=== PATIENT | female | born 1955 | race Caucasian/White ===

== ENCOUNTER 2019-08-13 13:01 | Emergency (ER) | payer MEDICARE, MEDICAID, SELFPAY ==
--- NOTE | 2019-08-13 13:02 | XR_ITS ---
WS: [id number] XR chest 2V* [id number] REASON FOR EXAM: sob FINDINGS: A mild scoliotic curve convex to the right. There are scattered granulomas throughout both lung bae. Comparisons were made to January 03, 2016. There is no pneumonia, pleural effusion, pulmonary edema, or mass effect. The heart is not grossly enlarged. There is mild hypoaeration noted. XR/XR chest 2V* [id number] IMPRESSION: No active cardiopulmonary changes.
[2019-08-13 13:37] VITALS: BP 113/81; PULSE 95; RESP 18; TEMP 36.7; O2SAT 95; BMI 36.3
[2019-08-13 14:05] LABS: Basophils % 0.3 %; Eosinophils # 0.2 10^3/uL (0.0-0.8); Eosinophils % 1.6 %; Hematocrit 40.5 % (37.0-47.0); Hemoglobin 12.2 g/dL (11.5-15.3); Lymphocytes # 2.1 10^3/uL (0.8-4.8); Lymphocytes % 22.4 %; Mean Corpuscular HGB Conc 30.1 g/dL (30.0-36.0); Mean Corpuscular Volume 92.9 fL (81-99); Mean Platelet Volume 10.7 fL (7.4-10.4); Monocytes # 0.7 10^3/uL (0.2-0.9); Monocytes % 7.1 %; Neutrophils # 6.4 10^3/uL (1.8-7.7); Neutrophils % 68.3 %; Nucleated Red Blood Cells % 0 %; Platelet Count 270 10^3/cmm (130-400); Red Blood Count 4.36 10^6/uL (4.1-5.3); Red Cell Distribution Width 15.5 % (12.1-15.1); White Blood Count 9.4 10^3/uL (4.0-10.0)
[2019-08-13 14:14] LABS: Influenza A by IFA Negative (Negative); Influenza B by IFA Negative (Negative)
[2019-08-13 14:24] LABS: Anion Gap 15.1 (5-19); Blood Urea Nitrogen 16 mg/dL (8-23); Calcium 9.2 mg/dL (8.5-10.5); Carbon Dioxide 21 mmol/L (22-29); Chloride 105 mmol/L (98-107); Glomerular Filtration Rate 45.4 mL/min (90-130); Glucose 127 mg/dL (65-115); Osmolality Calculated 282 mOsm/kg (285-295); Potassium 4.1 mmol/L (3.5-5.1); Sodium 137 mmol/L (136-145)
[2019-08-13 16:12] VITALS: BP 125/57; PULSE 86; RESP 16; O2SAT 93
--- NOTE | 2019-08-13 16:12 | ED_ITS ---
Entered by Selena Umanzor, acting as scribe for Ellen Fogn MD Aug 13, 2019 13:01 HPI - General Adult General: Chief complaint: General Medical Stated complaint: flu s/s Time Seen by Provider: 08/13/19 16:15 Source: patient and family Mode of arrival: ambulatory Limitations: no limitations History of Present Illness: HPI narrative: 63 yo female presents with flu like symptoms. pt states this started 6 days ago. pt states she was seen at [facility] but left AMA. pt states she has had body aches and fatigue. pt has had fever and chills. pt denies anyother symptoms at this time. Patient is in no distress currently. She denies any pain. MD complaint: flu like symptoms. Onset (ago): day(s) (6 days ago) Radiation: non-radiation Severity: moderate Quality: aching Pain Consistency: constant Relieving factors: none Exacerbating factors: movement and other (cough) Associated symptoms: Reports cough, dyspnea, fevers/chills, short of breath and weakness; Deny chest pain, headache(s) or rash Treatments prior to arrival: other (pt seen at [facility] and she left AMA and came to [facility].) Review of Systems General: Reports: 10 or more systems reviewed and unremarkable except in HPI and below Const: Reports: fever, chills, body aches and fatigue Eyes: Denies: blurry vision or eye discomfort ENMT: Denies: throat pain or dental pain Card: Denies: chest pain Resp: Reports: shortness of breath : Denies: painful urination Musc: Denies: neck pain or back pain Skin/Breast: Denies: rash Neuro: Denies: headache Psych: Denies: depression Romain/Lymph: Denies: easy bruising All/Imm: Denies: hives PFS ED PFSH: Family History (Updated 08/10/19 @ 10:11 by Linda Domiinque RN) Mother CAD (coronary artery disease) Diabetes Myocardial infarction Hypertension Father , AGE 72 Diabetes CAD (coronary artery disease) Cancer LUNG Brother Diabetes CAD (coronary artery disease) Hypertension Sister Diabetes Social History Smoking and tobacco status: current every day smoker Physical Exam Const: COMMON NORMALS: no apparent distress, oriented x3 and healthy appearing HENMT: COMMON NORMALS: normocephalic and head/scalp atraumatic HEAD & SCALP: normocephalic and atraumatic Eye: COMMON NORMALS: PERRL and EOMs intact bilaterally PUPIL: Yes PERRL Neck/C-Spine: COMMON NORMALS: full ROM and supple Chest: COMMONS NORMALS: inspection of chest normal and palpation of chest normal Resp: COMMON NORMALS: normal respiratory effort, no retractions, no use of accessory muscles and clear to auscultation bilaterally AUSCULTATION: clear to auscultation bilaterally Cardio: COMMON NORMALS: regular rate, regular rhythm and no murmurs RATE: regular rate RHYTHM: regular rhythm GI: COMMON NORMALS: normal to inspection, nondistended, normoactive bowel sounds, soft to palpation, non-tender and no masses PALPATION: Yes soft Extremity: COMMON NORMALS: normal to inspection and full ROM Neuro: COMMON NORMALS: oriented x3, moves all extremities and no focal motor deficits Psych: COMMON NORMALS: mental status grossly normal, thought process normal and cooperative THOUGHT PROCESS: normal thought process Skin: COMMON NORMALS: no rashes or lesions noted and no wounds GENERAL SKIN EXAM: no rashes or lesions noted Course Vital Signs: Vital signs: Vital Signs Temperature 98.0 F 08/13/19 13:37 Pulse Rate 86 08/13/19 16:12 Respiratory Rate 16 08/13/19 16:14 Blood Pressure 125/57 08/13/19 16:12 Pulse Oximetry 93 08/13/19 16:12 MDM - General Adult MDM Narrative: Medical decision making narrative: Patient presents here with cough and congestion over the last 6 days. Her flu is negative. X-ray shows no large pneumonia. Patient likely has an upper respiratory infection will start on Keflex. Patient also given Tessalon. She has no signs of cardiac cause or pulmonary embolism. Patient is to follow-up with primary care doctor in 3 to 5 days return if worsening. Medical Records: Attestation: I reviewed the patient's medical records. Lab Data: Labs: Lab Results 08/13/19 08/13/19 08/13/19 Range/Units 13:45 13:46 13:46 WBC 9.4 (4.0-10.0) 10^3/ uL RBC 4.36 (4.1-5.3) 10^6/u L Hgb 12.2 (11.5-15.3) g/dL Hct 40.5 (37.0-47.0) % MCV 92.9 (81-99) fL MCH 28.0 (28.0-34.0) pg MCHC 30.1 (30.0-36.0) g/dL RDW 15.5 H (12.1-15.1) % Plt Count 270 (130-400) 10^3/c mm MPV 10.7 H (7.4-10.4) fL Neut % (Auto) 68.3 % Lymph % (Auto) 22.4 % [place] % (Auto) 7.1 % Eos % (Auto) 1.6 % Baso % (Auto) 0.3 % Neut # (Auto) 6.4 (1.8-7.7) 10^3/u L Lymph # (Auto) 2.1 (0.8-4.8) 10^3/u L [place] # (Auto) 0.7 (0.2-0.9) 10^3/u L Eos # (Auto) 0.2 (0.0-0.8) 10^3/u L Baso # (Auto) 0.0 (0.0-0.1) 10^3/u L Nucleated RBC % (a uto) 0 % Nucleated RBCs # 0.0 /100WBC Sodium 137 (136-145) mmol/L Potassium 4.1 (3.5-5.1) mmol/L Chloride 105 (98-107) mmol/L Carbon Dioxide 21 L (22-29) mmol/L Anion Gap 15.1 (5-19) BUN 16 (8-23) mg/dL Creatinine 1.2 H (0.5-0.9) mg/dL GFR Calculation 45.4 L (90-130) mL/min Glucose 127 H (65-115) mg/dL Calculated Osmolal ity 282 L (285-295) mOsm/k g Calcium 9.2 (8.5-10.5) mg/dL Influenza Type A A g Negative (Negative) POC Influenza B Ag Negative (Negative) Imaging Data^: CXR: Radiologist's impression: Patient: Peri Cid Unit #: [id number] : 1955 Age/Sex: 63 / F ADM Date: 08/13/19 Loc: ER Room/Bed: Attending Dr: Ordering Provider/Ordering MD: Ellen Fong MD Date of Service: 08/13/19 Procedure(s): XR chest 2V* 00516 Accession Number(s): [id number] Report Number: [id number] WS: [id number] XR chest 2V* [id number] REASON FOR EXAM: sob FINDINGS: A mild scoliotic curve convex to the right. There are scattered granulomas throughout both lung bae. Comparisons were made to January 03, 2016. There is no pneumonia, pleural effusion, pulmonary edema, or mass effect. The heart is not grossly enlarged. There is mild hypoaeration noted. XR/XR chest 2V* 23863 IMPRESSION: No active cardiopulmonary changes. Discharge Plan Discharge Patient Disposition: Home, Self-Care Clinical Impression: Upper respiratory infection Qualifiers: URI type: unspecified URI Qualified Code(s): J06.9 - Acute upper respiratory infection, unspecified Condition: Stable Prescriptions: New Keflex 500 mg capsule 500 mg PO Q6H 7 Days Qty: 28 RF: 0 Tessalon Perles 100 mg capsule 100 mg PO Q6H PRN (Reason: cough) Qty: 20 RF: 0 No Action metoprolol tartrate 25 mg tablet 25 mg PO BID RF: 0 rosuvastatin 10 mg tablet 10 mg PO DAILY RF: 0 aspirin [Aspir-81] 81 mg tablet,delayed release (DR/EC) 81 mg PO DAILY RF: 0 nitroglycerin [Nitrostat] 0.4 mg tablet, sublingual 0.4 mg SUBLINGUAL Q5M PRN (Reason: Chest Pain) RF: 0 amitriptyline 50 mg tablet 50 mg PO BEDTIME RF: 0 furosemide 40 mg tablet 40 mg PO DAILY RF: 0 cholecalciferol (vitamin D3) 50,000 unit PO Q7D RF: 0 tizanidine [Zanaflex] 4 mg capsule 4 mg PO BID PRN (Reason: Muscle Spasm) RF: 0 fluticasone propionate [Flonase Allergy Relief] 50 mcg/actuation spray,suspension 1 spray INTRANASAL BID PRN (Reason: Allergy Symptoms) RF: 0 tramadol 50 mg tablet 50 mg PO BID RF: 0 gabapentin 300 mg capsule 300 mg PO TID RF: 0 esomeprazole magnesium [Nexium] 20 mg capsule,delayed release(DR/EC) 20 mg PO DAILY RF: 0 trazodone 50 mg Tablet 50 mg PO BEDTIME RF: 0 methenamine hippurate 1 gram Tablet 1 g PO BID RF: 0 Vitamin C 500 mg Tablet 500 mg PO BID RF: 0 levothyroxine 125 mcg Tablet 125 mcg PO DAILY RF: 0 krill oil 1,557-939-46-80 mg Capsule 1 cap PO DAILY RF: 0 Discharge Orders: Discharge Order (Routine); Ordered 08/13/19 Ordered By: Ellen Fong Referrals: Vladimir Danielson [Primary Care Provider] - 4-7 days Discharge Diet: Advance as tolerated Discharge Activity: Resume usual activity Patient Instructions: Upper Respiratory Infection (ED) Coding Level of Care Code 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
[2019-08-13 16:14] VITALS: RESP 16
[2019-08-13 17:18] VITALS: BP 116/64; PULSE 87; RESP 15; O2SAT 95
== END 2019-08-13 17:19 | disposition home or self-care (01) ==
PROVIDERS: Emergency Provider Emergency Medicine; Family Provider Physician Assistant Medical; PCP Physician Assistant Medical
DX: J06.9 Acute upper respiratory infection, unspecified (principal); F17.200 Nicotine dependence, unspecified, uncomplicated
CPT/HCPCS: 36415; 71046; 80048; 85025; 87804; 99281; 99283; A9270

== ENCOUNTER 2019-11-25 13:24 | Outpatient (CLI) | payer MEDICARE, MEDICAID, SELFPAY ==
--- NOTE | 2019-11-25 13:30 | XR_ITS ---
WS: [id number] XR KUB 17171 REASON FOR EXAM: RENAL CALCULUS,LEFT FINDINGS: A definite renal calculus on the left side is not seen. There is scattered calcification throughout the abdomen but not in the region of the kidneys ureter b ladder. Fecal stasis is observed. XR/XR KUB 27144 IMPRESSION: No definite calculi are seen by radiographic evaluation.
== END 2019-11-25 13:25 | disposition home or self-care (01) ==
PROVIDERS: Family Provider Physician Assistant Medical; PCP Physician Assistant Medical; Visit Provider Urology
DX: N20.0 Calculus of kidney (principal)
CPT/HCPCS: 74018; 80053; 81001; 87077; 87086; 87186

== ENCOUNTER 2020-03-10 09:43 | Inpatient (IN) | payer MEDICARE, MEDICAID, SELFPAY ==
[2020-03-10] VITALS (28 sets, daily range): BP systolic 92–170; BP diastolic 68–113; PULSE 67–99; RESP 11–28; TEMP 36.6–36.8; O2SAT 86–100; BMI 37.5
--- NOTE | 2020-03-10 09:52 | ECG_ITS ---
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 Measurements Intervals [place] Rate: 81 P: 55 DC: 161 QRS: -8 QRSD: 121 T: 79 QT: 394 QTc: 458 Interpretive Statements SINUS RHYTHM LATERAL MYOCARDIAL INFARCTION , OF INDETERMINATE AGE [40+ ms Q WAVE AND/OR ST/T ABNORMALITY IN I/aVL/V5/V6] Compared to ECG 07/04/2018 10:27:48 No significant changes Electronically Signed On 03-10-2020 19:39:28 CDT by Taylor Grande M.D. [email or web address] [email or web address].The [employer]/store/[id number] f
--- NOTE | 2020-03-10 09:52 | XRR_ITS ---
PROCEDURE INFORMATION: Exam: XR Chest, 1 View Exam date and time: 03/10/2020 10:07 AM Age: 64 years old Clinical indication: Chest pain; Type not specified; Prior surgery; Surgery type: Stents TECHNIQUE: Imaging protocol: XR of the chest Views: 1 view. COMPARISON: CR XR chest 2V* 13701 08/13/2019 1:24 PM FINDINGS: Lungs: Interstitial prominence diffusely. Likely chronic. Consider CT. Pleural space: Unremarkable. No pleural effusion. No pneumothorax. Heart/Mediastinum: The cardiac silhouette appears enlarged, some of which is magnification related to the AP projection. Bones/joints: Unremarkable. XR/XR chest 1V portable [id number] IMPRESSION: Interstitial prominence diffusely. Likely chronic. Consider CT.
--- NOTE | 2020-03-10 09:55 | ED_ITS ---
HPI - Chest Pain General: Chief Complaint: Chest Pain Stated Complaint: CHEST PAIN Time Seen by Provider: 03/10/20 09:46 History of Present Illness: HPI narrative: This patient is a 64-year-old female who comes in today complaining that she is having a heart attack. She called ambulance this morning for pain that started about 20 minutes prior to the ambulance arrival. She has had MIs in the past. She said her last one was in 2010. She has had multiple stents put in including in 2017 in [place]. She sees Dr. Lara. Recently he took her off her blood thinner because she was having so many episodes of bruising. She denies any other recent medicine changes or medical issues. She also has had shortness of breath. Associated symptoms: Deny abdominal pain, dyspnea, fever(s), nausea or vomiting Review of Systems General: Reports: 10 or more systems reviewed and unremarkable except in HPI and below Const: Denies: fever(s), chills, fatigue or malaise Eyes: Denies: change in vision ENMT: Denies: odynophagia Card: Reports: chest pain and dyspnea on exertion; Denies: swelling of feet/ankles Resp: Denies: dyspnea, productive cough or non-productive cough GI: Denies: abdominal pain, nausea or vomiting : Denies: flank pain or difficulty voiding Musc: Denies: neck pain or back pain Skin/Breast: Denies: rash Neuro: Denies: headache(s), numbness in extremities or weakness in extremities Romain/Lymph: Denies: easy bruising or easy bleeding [facility] ED PFSH: Medical History ASHD (arteriosclerotic heart disease) CHF (congestive heart failure) CKD (chronic kidney disease) COPD (chronic obstructive pulmonary disease) Diabetes 1.5, managed as type 2 HTN (hypertension) Hyperlipidemia Myocardial infarction Obesity EDNA (obstructive sleep apnea) Recurrent UTI Renal calculus, left treated with ESWL with resolution S/P extracorporeal shock wave therapy Tobacco abuse Urolithiasis Surgical History H/O bariatric surgery S/P angioplasty with stent Family History Mother CAD (coronary artery disease) Diabetes Myocardial infarction Hypertension Father , AGE 72 Diabetes CAD (coronary artery disease) Cancer LUNG Brother Diabetes CAD (coronary artery disease) Hypertension Sister Diabetes Social History Smoking and tobacco status: current every day smoker cigarettes Alcohol intake: unknown Adopted: No Caregiver/support person: No Marital status: Legally Current occupational status: retired History of recent travel: No Current gender identity: Female Physical Exam Const: COMMON NORMALS: patient oriented x3, no limitations and alert GENERAL APPEARANCE: cooperative HENMT: HEAD & SCALP: normal to inspection FACE & SINUS: normal facial exam Eye: GENERAL EYE: appearance normal, both eyes and all related structures Neck/C-Spine: COMMON NORMALS: supple, no meningeal signs and no JVD Chest: COMMONS NORMALS: normal inspection of the chest Resp: COMMON NORMALS: normal respiratory effort, No use of accessory muscles and clear to auscultation bilaterally AUSCULTATION: clear to auscultation bilaterally Cardio: COMMON NORMALS: no JVD, regular rate, regular rhythm and No murmurs present (Cardio) RATE: regular rate RHYTHM: regular rhythm GI: COMMON NORMALS: Normal to inspection, nondistended, normoactive bowel sounds present, Soft to palpation and non-tender INSPECTION: Yes normal to inspection AUSCULTATION: Yes normoactive bowel sounds PALPATION: Yes Soft to palpation Back/Pelvis: COMMON NORMALS: thoracic and lumbar spine normal to inspection Extremity: COMMON NORMALS: normal to inspection Neuro: COMMON NORMALS: patient oriented x3, moves all extremities, no focal motor deficits and no sensory deficits noted SENSORIUM/ORIENTATION: Yes alert MENINGEAL SIGNS: Yes no meningeal signs Psych: COMMON NORMALS: mental status grossly normal, cooperative and normal affect Skin: COMMON NORMALS: no rashes or lesions noted and turgor normal GENERAL SKIN EXAM: no rashes or lesions noted and turgor normal Course ED course: This patient presents stating that she is having a heart attack. Her initial EKG did not show diagnostic ischemic changes. Her first troponin was slightly elevated and her second was significantly elevated with a positive delta. Pain was controlled while in the ED. She reported a few very brief episodes of chest pain throughout her stay. She will be admitted to the hospitalist with cardiology consult and likely cath tomorrow. I spoke with Dr. Teran and she requested that I load her with Plavix and Lovenox. She had already received aspirin from EMS. Vital Signs: Vital signs: Vital Signs Temperature 98 F 03/11/20 03:33 Pulse Rate 89 03/11/20 03:33 Respiratory Rate 19 H 03/11/20 03:33 Blood Pressure 150/92 03/11/20 03:33 Pulse Oximetry 96 03/11/20 03:33 MDM - Chest Pain Lab Data: Labs: Lab Results 03/10/20 03/10/20 03/10/20 Range/Units 10:13 10:13 10:13 WBC 8.5 (4.0-10.0) 10^3/ uL RBC 4.54 (4.1-5.3) 10^6/u L Hgb 13.0 (11.5-15.3) g/dL Hct 41.5 (37.0-47.0) % MCV 91.4 (81-99) fL MCH 28.6 (28.0-34.0) pg MCHC 31.3 (30.0-36.0) g/dL RDW 17.3 H (12.1-15.1) % Plt Count 275 (130-400) 10^3/c mm MPV 10.3 (7.4-10.4) fL Neut % (Auto) 67.0 % Lymph % (Auto) 23.5 % [place] % (Auto) 7.3 % Eos % (Auto) 1.4 % Baso % (Auto) 0.4 % Neut # (Auto) 5.71 (1.8-7.7) 10^3/u L Lymph # (Auto) 2.0 (0.8-4.8) 10^3/u L [place] # (Auto) 0.6 (0.2-0.9) 10^3/u L Eos # (Auto) 0.1 (0.0-0.8) 10^3/u L Baso # (Auto) 0.0 (0.0-0.1) 10^3/u L Nucleated RBC % (a uto) 0 % Nucleated RBCs # 0.0 /100WBC PT 12.40 (12.1-14.9) SECO NDS INR 0.90 (0.8-1.2) Sodium 136 (136-145) mmol/L Potassium 3.4 L (3.5-5.1) mmol/L Chloride 101 (98-107) mmol/L Carbon Dioxide 24 (22-29) mmol/L Anion Gap 14.4 (5-19) BUN 21 (8-23) mg/dL Creatinine 0.8 (0.5-0.9) mg/dL GFR Calculation 72.2 L (90-130) mL/min Glucose 125 H (65-115) mg/dL Estimat Average Gl ucose Hemoglobin A1c (4.0-6.0) % Calculated Osmolal ity 286 (285-295) mOsm/k g Calcium 8.1 L (8.5-10.5) mg/dL Total Bilirubin 0.3 (0.15-1.2) mg/dL AST 15 (0-32) U/L ALT 10 (0-33) U/L Alkaline Phosphata se 83 (35-105) IU/L Troponin T Baselin e (0-10) ng/L Troponin T 120 Min [place] (0-10) ng/L Delta Troponin T (0-10) ABS# NT-Pro-B Natriuret Pep 828 H (0-125) pg/mL Total Protein 6.9 (6.6-8.7) g/dL Albumin 3.4 L (3.5-5.2) g/dL Globulin 3.5 (1.3-4.6) g/dL Lipase 29 (13-60) U/L 03/10/20 03/10/20 03/10/20 Range/Units 10:13 10:13 10:13 WBC (4.0-10.0) 10^3/ uL RBC (4.1-5.3) 10^6/u L Hgb (11.5-15.3) g/dL Hct (37.0-47.0) % MCV (81-99) fL MCH (28.0-34.0) pg MCHC (30.0-36.0) g/dL RDW (12.1-15.1) % Plt Count (130-400) 10^3/c mm MPV (7.4-10.4) fL Neut % (Auto) % Lymph % (Auto) % [place] % (Auto) % Eos % (Auto) % Baso % (Auto) % Neut # (Auto) (1.8-7.7) 10^3/u L Lymph # (Auto) (0.8-4.8) 10^3/u L [place] # (Auto) (0.2-0.9) 10^3/u L Eos # (Auto) (0.0-0.8) 10^3/u L Baso # (Auto) (0.0-0.1) 10^3/u L Nucleated RBC % (a uto) % Nucleated RBCs # /100WBC PT (12.1-14.9) SECO NDS INR (0.8-1.2) Sodium (136-145) mmol/L Potassium (3.5-5.1) mmol/L Chloride (98-107) mmol/L Carbon Dioxide (22-29) mmol/L Anion Gap (5-19) BUN (8-23) mg/dL Creatinine (0.5-0.9) mg/dL GFR Calculation (90-130) mL/min Glucose (65-115) mg/dL Estimat Average Gl ucose 123 Hemoglobin A1c 5.9 (4.0-6.0) % Calculated Osmolal ity (285-295) mOsm/k g Calcium (8.5-10.5) mg/dL Total Bilirubin (0.15-1.2) mg/dL AST (0-32) U/L ALT (0-33) U/L Alkaline Phosphata se (35-105) IU/L Troponin T Baselin e 22 H (0-10) ng/L Troponin T 120 Min [place] (0-10) ng/L Delta Troponin T (0-10) ABS# NT-Pro-B Natriuret Pep 890 H (0-125) pg/mL Total Protein (6.6-8.7) g/dL Albumin (3.5-5.2) g/dL Globulin (1.3-4.6) g/dL Lipase (13-60) U/L 03/10/20 Range/Units 12:25 WBC (4.0-10.0) 10^3/ uL RBC (4.1-5.3) 10^6/u L Hgb (11.5-15.3) g/dL Hct (37.0-47.0) % MCV (81-99) fL MCH (28.0-34.0) pg MCHC (30.0-36.0) g/dL RDW (12.1-15.1) % Plt Count (130-400) 10^3/c mm MPV (7.4-10.4) fL Neut % (Auto) % Lymph % (Auto) % [place] % (Auto) % Eos % (Auto) % Baso % (Auto) % Neut # (Auto) (1.8-7.7) 10^3/u L Lymph # (Auto) (0.8-4.8) 10^3/u L [place] # (Auto) (0.2-0.9) 10^3/u L Eos # (Auto) (0.0-0.8) 10^3/u L Baso # (Auto) (0.0-0.1) 10^3/u L Nucleated RBC % (a uto) % Nucleated RBCs # /100WBC PT (12.1-14.9) SECO NDS INR (0.8-1.2) Sodium (136-145) mmol/L Potassium (3.5-5.1) mmol/L Chloride (98-107) mmol/L Carbon Dioxide (22-29) mmol/L Anion Gap (5-19) BUN (8-23) mg/dL Creatinine (0.5-0.9) mg/dL GFR Calculation (90-130) mL/min Glucose (65-115) mg/dL Estimat Average Gl ucose Hemoglobin A1c (4.0-6.0) % Calculated Osmolal ity (285-295) mOsm/k g Calcium (8.5-10.5) mg/dL Total Bilirubin (0.15-1.2) mg/dL AST (0-32) U/L ALT (0-33) U/L Alkaline Phosphata se (35-105) IU/L Troponin T Baselin e (0-10) ng/L Troponin T 120 Min andreafski 53.01 H (0-10) ng/L Delta Troponin T 31.01 H* (0-10) ABS# NT-Pro-B Natriuret Pep (0-125) pg/mL Total Protein (6.6-8.7) g/dL Albumin (3.5-5.2) g/dL Globulin (1.3-4.6) g/dL Lipase (13-60) U/L Discharge Plan Discharge Patient Disposition: Placed in Observation Admit Provider: Dina Garcia Discharge Date/Time: 03/10/20 14:40 Coding Level of Care Code ED 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
[2020-03-10 10:19] LABS: Basophils % 0.4 %; Eosinophils # 0.1 10^3/uL (0.0-0.8); Eosinophils % 1.4 %; Hematocrit 41.5 % (37.0-47.0); Lymphocytes % 23.5 %; Mean Corpuscular HGB Conc 31.3 g/dL (30.0-36.0); Mean Corpuscular Hemoglobin 28.6 pg (28.0-34.0); Mean Corpuscular Volume 91.4 fL (81-99); Mean Platelet Volume 10.3 fL (7.4-10.4); Monocytes # 0.6 10^3/uL (0.2-0.9); Monocytes % 7.3 %; Neutrophils # 5.71 10^3/uL (1.8-7.7); Nucleated Red Blood Cells % 0 %; Platelet Count 275 10^3/cmm (130-400); Red Blood Count 4.54 10^6/uL (4.1-5.3); Red Cell Distribution Width 17.3 % (12.1-15.1); White Blood Count 8.5 10^3/uL (4.0-10.0)
[2020-03-10 10:40] LABS: Troponin(5th) Baseline 22 ng/L (0-10)
[2020-03-10 10:47] LABS: Alanine Aminotransferase 10 U/L (0-33); Albumin Level 3.4 g/dL (3.5-5.2); Alkaline Phosphatase 83 IU/L (35-105); Anion Gap 14.4 (5-19); Aspartate Amino Transferase 15 U/L (0-32); Blood Urea Nitrogen 21 mg/dL (8-23); Calcium 8.1 mg/dL (8.5-10.5); Carbon Dioxide 24 mmol/L (22-29); Chloride 101 mmol/L (98-107); Globulin 3.5 g/dL (1.3-4.6); Glomerular Filtration Rate 72.2 mL/min (90-130); Glucose 125 mg/dL (65-115); Lipase 29 U/L (13-60); NT Pro B Type Natriuretic Pept 828 pg/mL (0-125); Osmolality Calculated 286 mOsm/kg (285-295); Potassium 3.4 mmol/L (3.5-5.1); Sodium 136 mmol/L (136-145); Total Bilirubin 0.3 mg/dL (0.15-1.2); Total Protein 6.9 g/dL (6.6-8.7)
--- NOTE | 2020-03-10 11:52 | ECG_ITS ---
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 Measurements Intervals [place] Rate: 83 P: 63 SC: 157 QRS: -3 QRSD: 123 T: 76 QT: 385 QTc: 455 Interpretive Statements SINUS RHYTHM ANTEROLATERAL MYOCARDIAL INFARCTION , OF INDETERMINATE AGE [40+ ms Q WAVE IN I/aVL/V3-V6] Possible old inferior wall NV Compared to ECG 03/10/2020 09:59:02 No significant changes Electronically Signed On 03-10-2020 19:48:41 CDT by Taylor Grande M.D. [id number]
[2020-03-10 13:02] LABS: Troponin 5 2HR 53.01 ng/L (0-10)
[2020-03-10 13:12] LABS: Troponin 5 2HR Delta 31.01 ABS# (0-10)
[2020-03-10] MEDS: enoxaparin 100 mg/mL Syringe SUBCUT ×2 (13:41→15:56)
[2020-03-10] MEDS: clopidogrel 300 mg Tablet PO (13:41)
--- NOTE | 2020-03-10 14:44 | P.CONIM_ITS ---
Providers/Reason For Consult Consulting Physican/Specialty*: Dr. Teran, cardiology Reason for Consult*: Non-ST elevation ID, previous history of CAD with stent Attending Physician: Dina Garcia MD Primary Care Provider: Vladimir Danielson History of Present Illness History of Present Illness Peri Cid is a 64 year old female with past medical history of coronary artery disease with history of ID x2 in 2004 and 2010. She underwent 1 stent placement in unknown vessel in 2004 and 3 stents in 2010. In 2016 in [place] it seems like she had another 4 stents placed. She usually followed up with Dr. Lara and last saw him in September this year. She is morbidly obese status post bariatric surgery in 2009, hypertension, chronic active tobacco abuse since 18 years of age of at least 1 pack/day, history of diabetes mellitus (not on any medications since bariatric surgery, hemoglobin A1c 5.9), dyslipidemia and chronic kidney disease. She was on Plavix until March of last year. She was not feeling well last night yesterday when she woke up this morning she had a pain in center of her chest while she was working in her kitchen 7/10 in intensity with shortness of breath. She took 2 nitroglycerin that did not help her and then her daughter called EMS. On her way to the hospital she had nausea and received antiemetics. On arrival to the ER her pain resolved but while moving moved to the floor her pain developed again. At the time of evaluation her pain is rated as 1/10 in intensity. She denies any sick contacts, no fever no chills no URI or UTI-like symptoms. No contacts with known COVID patient. She does complain of pneumonia back in August and September. Baseline troponin T of 22 which increased to 53 and 120 minutes and 6 are troponin T of 173. NT proBNP of 890. Last x-ray showed diffuse interstitial prominence and likely tortuous aorta given soft tissue prominence in left hilum. Review of Systems Const: Denies: fatigue Eyes: Denies: change in vision ENMT: Denies: throat pain, bleeding gums or epistaxis Card: Reports: chest pain; Denies: palpitations, irregular heart rhythm, edema, swelling of feet/ankles, lightheadedness, syncope, pre-syncope, dyspnea on exertion or orthopnea Resp: Reports: dyspnea; Denies: productive cough or non-productive cough GI: Denies: abdominal pain, nausea, vomiting, hematemesis, diarrhea, constipation or hematochezia : Denies: dysuria or hematuria Musc: Denies: back pain, extremity swelling, joint pain or muscle weakness Skin/Breast: Denies: rash Neuro: Denies: dizziness Psych: Denies: anxiety or depression Endo: Denies: tired all the time Romain/Lymph: Denies: easy bruising or easy bleeding Meds/Allergies Home Medications and Allergies Home Medications Medication Instructions Recorded Confirmed Last Taken Type amitriptyline 50 mg tablet 50 mg PO BEDTIME tab 08/10/19 03/10/20 03/09/20 History aspirin 81 mg tablet,delayed 81 mg PO DAILY 08/10/19 03/10/20 08/12/19 History release esomeprazole magnesium 20 mg 40 mg PO DAILY 08/10/19 03/10/20 03/08/20 History capsule,delayed release fluticasone propionate 50 2 spray INTRANASAL DAILY PRN 08/10/19 03/10/20 Unknown History mcg/actuation nasal spray,suspension furosemide 40 mg tablet 40 mg PO DAILY 08/10/19 03/10/20 03/08/20 History gabapentin 300 mg capsule 300 mg PO TID 08/10/19 03/10/20 03/09/20 History metoprolol tartrate 25 mg tablet 25 mg PO BID 08/10/19 03/10/20 03/09/20 History nitroglycerin 0.4 mg sublingual 0.4 mg SUBLINGUAL Q5M PRN 08/10/19 03/10/20 03/10/20 History tablet rosuvastatin 10 mg tablet 10 mg PO BEDTIME 08/10/19 03/10/20 03/09/20 History tizanidine 4 mg capsule 4 mg PO Q6H PRN 08/10/19 03/10/20 03/09/20 History tramadol 50 mg tablet 50 mg PO BID PRN 08/10/19 03/10/20 03/09/20 History ascorbic acid (vitamin C) [Vitamin 500 - 1,000 mg PO BID 08/13/19 03/10/20 03/09/20 History C] [id number]-dli-juofhaa-ast 1 cap PO DAILY 08/13/19 03/10/20 03/08/20 History [krill oil] levothyroxine 125 mcg PO DAILY 08/13/19 03/10/20 03/08/20 History trazodone 50 mg PO BEDTIME PRN 08/13/19 03/10/20 08/12/19 History methenamine hippurate 1 gram tablet 1 g PO BID #60 tab 11/25/19 03/10/20 03/09/20 Rx acetaminophen [Arthritis Pain 650 mg PO PRN 03/10/20 03/10/20 Unknown History Reliever] multivitamin [Multiple Vitamins] 1 tab PO DAILY 03/10/20 03/10/20 Unknown History Allergies Allergy/AdvReac Type Severity Reaction Status Date / Time hepatitis a immune Allergy Unknown Unknown Verified 10/12/19 13:50 globulin,human hepatitis B immune globulin Allergy Unknown Unknown Verified 03/10/20 10:56 PFSH Acute PFSH: Medical History ASHD (arteriosclerotic heart disease) CHF (congestive heart failure) CKD (chronic kidney disease) COPD (chronic obstructive pulmonary disease) Diabetes 1.5, managed as type 2 HTN (hypertension) Hyperlipidemia Myocardial infarction Obesity EDNA (obstructive sleep apnea) Recurrent UTI Renal calculus, left treated with ESWL with resolution S/P extracorporeal shock wave therapy Tobacco abuse Urolithiasis Surgical History H/O bariatric surgery S/P angioplasty with stent Family History Mother CAD (coronary artery disease) Diabetes Myocardial infarction Hypertension Father , AGE 72 Diabetes CAD (coronary artery disease) Cancer LUNG Brother Diabetes CAD (coronary artery disease) Hypertension Sister Diabetes Social History Smoking and tobacco status: current every day smoker cigarettes Alcohol intake: unknown Adopted: No Caregiver/support person: No Marital status: Legally Current occupational status: retired History of recent travel: No Current gender identity: Female Vitals/I&O/Wt Last Vital Signs Temp 98.0 F 03/10/20 09:48 Pulse 79 03/10/20 14:34 Resp 18 03/10/20 14:34 BP 125/72 03/10/20 14:34 Pulse Ox 97 03/10/20 14:34 Weight last 48 hrs Weight 219 lb Physical Exam Const: COMMON NORMALS: no acute distress, patient oriented x3 and alert GENERAL APPEARANCE: cooperative, comfortable, well kempt and well hydrated NUTRITIONAL APPEARANCE: obese HENMT: COMMON NORMALS: hearing grossly normal bilaterally, external ears normal and moist oral mucous membranes FACE & SINUS: normal facial exam EXTERNAL EAR: Yes external ears normal Eye: COMMON NORMALS: EOMs intact bilaterally and no scleral icterus GENERAL EYE: appearance normal, both eyes and all related structures Neck/C-Spine: COMMON NORMALS: supple and no JVD GENERAL: Yes normal visual inspection CAROTIDS: Yes normal carotid upstroke Lymph: LYMPHATIC: no lymphadenopathy noted Chest: COMMONS NORMALS: normal inspection of the chest and normal palpation of entire chest wall CHEST: Yes Symmetrical chest wall rise and No tenderness Resp: COMMON NORMALS: clear to auscultation bilaterally EFFORT & INSPECTION: Yes able to speak in complete sentences, No respiratory distress, No pursed lip breathing and No labored AUSCULTATION: clear to auscultation bilaterally, no crackles, no rales, no rhonchi and no wheezes Cardio: COMMON NORMALS: no JVD, regular rate, regular rhythm, S1 normal heart sound present, S2 normal heart sound present and Peripheral pulses 2+ throughout PALPATION: normal PMI RATE: regular rate RHYTHM: regular rhythm HEART SOUNDS: S1 normal heart sound present, S2 normal heart sound present, no gallops and no murmurs BRUITS: no carotid bruits PERIPHERAL PULSES: Peripheral pulses 2+ throughout, radial pulses present, posterior tibial pulses present and dorsalis pedis present Extremity: GENERAL: No cyanosis, Yes edema and No pallor Neuro: COMMON NORMALS: patient oriented x3, CN's II-XII intact bilaterally and no focal motor deficits SENSORIUM/ORIENTATION: Yes alert Psych: COMMON NORMALS: Normal thought process present and speech normal APPEARANCE: Yes well kempt SPEECH: Yes normal speech MOOD & AFFECT: Yes euthymic mood THOUGHT PROCESS: Normal thought process present THOUGHT CONTENT: Yes Normal thought content present Data Imaging^: Other Imaging: Radiologist's impression: Transthoracic echo 10 December 2015 CONCLUSIONS Left ventricular cavity not well visualized. Probably normal LV function. Cannot assess RWMA. Very poor quality study. No significant valve abnormalities. There are no prior echocardiogram studies to compare. Lexiscan sestamibi stress test (05 January 2016) 1. Large area for myocardial infarction versus scarring was noted in basal to distal inferior, basal to distal inferoseptal and basal to distal inferolateral wall of the left ventricle. No ischemia detected by this study. Most likely artery involvement is either RCA or dominant circumflex 2. Electrocardiogram portion of the stress test will be documented separately. Left ventricular ejection fraction of 65%. Transient ischemic dilation ratio of 0.77. A&P Assessment and plan (1) NSTEMI (non-ST elevated myocardial infarction): Patient has typical anginal chest pain. EKG showing sinus rhythm with normal axis. old inferior wall ID and possible anterolateral ID of indeterminate age. Increase in troponin with significant delta change and peak troponin of 173. -She would benefit from coronary angiogram. -Risks and benefits of the procedure were discussed with the patient and she is agreeable for the same. -Continue aspirin. Patient was loaded with Plavix 300 mg and Lovenox therapeutic dose in ER. -Continue with topical nitroglycerin, metoprolol and atorvastatin. Status: Acute (2) ASHD (arteriosclerotic heart disease): Status: Acute (3) CHF (congestive heart failure): Status: Acute Qualifiers: Heart failure type: unspecified Heart failure chronicity: acute on chronic Qualified Code(s): I50.9 - Heart failure, unspecified (4) Hyperlipidemia: Status: Acute Qualifiers: Hyperlipidemia type: unspecified Qualified Code(s): E78.5 - Hyperlipidemia, unspecified (5) EDNA (obstructive sleep apnea): Status: Acute (6) Obesity: Status: Acute Qualifiers: Obesity classification: adult class 2 (BMI 35 - 39.9) Additional A&P Information Chronic active smoker : Concern on smoking cessation hypokalemia: Replaced Hypothyroidism Thank you for allowing me to participate in patient's care. Please feel free to call with questions or concerns. Coding Level of Care Code Acute Machinist for g Fwd Diagnoses NSTEMI (non-ST elevated myocardial infarction) I21.4 ASHD (arteriosclerotic heart disease) I25.10 CHF (congestive heart failure) I50.9 Heart failure type: unspecified Heart failure chronicity: acute on chronic Hyperlipidemia E78.5 Hyperlipidemia type: unspecified EDNA (obstructive sleep apnea) G47.33 Obesity E66.9 Obesity classification: adult class 2 (BMI 35 - 39.9)
--- NOTE | 2020-03-10 15:35 | PC.NURSE ---
Patient c/o sharp stabbing pain that goes from her chest to her back. Rates pain 6/10. O2 placed at 3?/NC
--- NOTE | 2020-03-10 15:40 | P.HP_ITS ---
Providers/Chief Complaint Admitting Physician: Dina Garcia MD Primary Care Provider: Vladimir Danielson Chief Complaint: CHEST PAIN History of Present Illness Peri Cid is a 64 year old female has a history of coronary disease, chronic shortness of breath, history of myocardial infarction with intervention, left ventricular dysfunction with history of systolic heart failure, super morbid obesity status post bariatric surgery, hypertension, tobacco abuse, diabetes, sleep apnea, chronic kidney disease, dyslipidemia, diabetic neuropathy, chronic cystitis and nephrolithiasis. He presents to the hospital with chief complaint of chest pain that started this morning while she was in the kitchen. There was no evident trigger. Describes this as a sensation in the center of her chest, 10 x 10 intensity, improved to 6 on 10 after coming to the ER and getting the Nitro-Bid on. She also complains of shortness of breath at that time and still some subjective subjective shortness of breath ongoing. She has missed taking her Lasix over the last 2 days. Upon presentation to the ER she underwent serial troponins and the 2-hour delta is back at 30, consistent with a non-STEMI. Per my discussion with Dr. Rivero, cardiology service has been consulted and she has been loaded with Plavix and full dose anticoagulation started with Lovenox. She is not usually on home O2 and is currently requiring 3 L/min via nasal cannula to maintain O2 sats. In the ER her O2 sat was noted to be 87%. Review of Systems General: Reports: 10 or more systems reviewed and unremarkable except in HPI and below Const: Denies: fever(s), chills or body aches Eyes: Denies: change in vision, blurry vision or photophobia ENMT: Reports: hoarseness; Denies: throat pain, enlarged tonsils, odynophagia or nasal congestion Card: Denies: chest pain, palpitations, irregular heart rhythm, edema, swelling of feet/ankles, lightheadedness, pre-syncope, dyspnea on exertion or orthopnea Resp: Denies: dyspnea, productive cough, non-productive cough, wheezing, stridor, pain on inspiration, change in phlegm color, hemoptysis or chest congestion GI: Denies: abdominal pain, nausea, vomiting, hematemesis, coffee ground emesis, dysphagia, heartburn, diarrhea, constipation, GI cramping, change in stool character, hematochezia or melena : Denies: flank pain, difficulty voiding, dysuria, urinary frequency, urinary urgency, urinary hesitancy or hematuria Musc: Denies: neck pain, back pain, extremity pain, joint swelling, joint warmth or deformity Neuro: Denies: headache(s), numbness in extremities, weakness in extremities, sensory changes, difficulty walking, frequent falls, dizziness, vertigo, behavioral changes, Slurred speech present or seizure-like activity Psych: Denies: anxiety, depression, suicidal ideation or homicidal ideation Endo: Denies: polyuria, polydipsia, tired all the time, cold intolerance or hot flashes Romain/Lymph: Denies: easy bruising or easy bleeding Medications/Allergies Home Medications Medication Instructions Recorded Confirmed Last Taken Type amitriptyline 50 mg tablet 50 mg PO BEDTIME tab 08/10/19 03/10/20 03/09/20 History aspirin 81 mg tablet,delayed 81 mg PO DAILY 08/10/19 03/10/20 08/12/19 History release esomeprazole magnesium 20 mg 40 mg PO DAILY 08/10/19 03/10/20 03/08/20 History capsule,delayed release fluticasone propionate 50 2 spray INTRANASAL DAILY PRN 08/10/19 03/10/20 Unknown History mcg/actuation nasal spray,suspension furosemide 40 mg tablet 40 mg PO DAILY 08/10/19 03/10/20 03/08/20 History gabapentin 300 mg capsule 300 mg PO TID 08/10/19 03/10/20 03/09/20 History metoprolol tartrate 25 mg tablet 25 mg PO BID 08/10/19 03/10/20 03/09/20 History nitroglycerin 0.4 mg sublingual 0.4 mg SUBLINGUAL Q5M PRN 08/10/19 03/10/20 03/10/20 History tablet rosuvastatin 10 mg tablet 10 mg PO BEDTIME 08/10/19 03/10/20 03/09/20 History tizanidine 4 mg capsule 4 mg PO Q6H PRN 08/10/19 03/10/20 03/09/20 History tramadol 50 mg tablet 50 mg PO BID PRN 08/10/19 03/10/20 03/09/20 History ascorbic acid (vitamin C) [Vitamin 500 - 1,000 mg PO BID 08/13/19 03/10/2003/09/20 History C] [id number]-cod-qerlzdt-ast 1 cap PO DAILY 08/13/19 03/10/20 03/08/20 History [krill oil] levothyroxine 125 mcg PO DAILY 08/13/19 03/10/20 03/08/20 History trazodone 50 mg PO BEDTIME PRN 08/13/19 03/10/20 08/12/19 History methenamine hippurate 1 gram tablet 1 g PO BID #60 tab 11/25/19 03/10/20 03/09/20 Rx acetaminophen [Arthritis Pain 650 mg PO PRN 03/10/20 03/10/20 Unknown History Reliever] multivitamin [Multiple Vitamins] 1 tab PO DAILY 03/10/20 03/10/20 Unknown History Allergies Allergy/AdvReac Type Severity Reaction Status Date / Time hepatitis a immune Allergy Unknown Unknown Verified 10/12/19 13:50 globulin,human hepatitis B immune globulin Allergy Unknown Unknown Verified 03/10/20 10:56 PFSH Acute PFSH: Medical History ASHD (arteriosclerotic heart disease) CHF (congestive heart failure) CKD (chronic kidney disease) COPD (chronic obstructive pulmonary disease) Diabetes 1.5, managed as type 2 HTN (hypertension) Hyperlipidemia Myocardial infarction Obesity EDNA (obstructive sleep apnea) Recurrent UTI Renal calculus, left treated with ESWL with resolution S/P extracorporeal shock wave therapy Tobacco abuse Urolithiasis Surgical History H/O bariatric surgery S/P angioplasty with stent Family History Mother CAD (coronary artery disease) Diabetes Myocardial infarction Hypertension Father , AGE 72 Diabetes CAD (coronary artery disease) Cancer LUNG Brother Diabetes CAD (coronary artery disease) Hypertension Sister Diabetes Social History Smoking and tobacco status: current every day smoker cigarettes Alcohol intake: unknown Adopted: No Caregiver/support person: No Marital status: Legally Current occupational status: retired History of recent travel: No Current gender identity: Female Vitals/I&O/Wt Last Vital Signs Temp 97.9 F 03/10/20 15:12 Pulse 79 03/10/20 15:12 Resp 23 H 03/10/20 15:12 BP 126/79 03/10/20 15:12 Pulse Ox 95 03/10/20 15:12 Weight last 48 hrs Weight 99.337 kg Physical Exam Const: COMMON NORMALS: no acute distress, average body habitus, patient oriented x3, no limitations, healthy appearing, alert and well nourished HENMT: COMMON NORMALS: normocephalic and atraumatic HEAD & SCALP: no rmocephalic and atraumatic Eye: COMMON NORMALS: Equal, round and reactive pupils present, EOMs intact bilaterally, conjunctivae normal and no scleral icterus CONJUNCTIVA: Yes conjunctivae normal PUPIL: Yes Equal, round and reactive pupils present Neck/C-Spine: COMMON NORMALS: no JVD Resp: COMMON NORMALS: normal respiratory effort, No retractions, No use of accessory muscles, clear to auscultation bilaterally and percussion normal AUSCULTATION: crackles and rales Cardio: COMMON NORMALS: no JVD, regular rate, regular rhythm, S1 normal heart sound present, S2 normal heart sound present, No gallops present (Cardio), No clicks present (Cardio), No murmurs present (Cardio), No rub (Cardio) and Peripheral pulses 2+ throughout RATE: regular rate RHYTHM: regular rhythm HEART SOUNDS: S1 normal heart sound present and S2 normal heart sound present PERIPHERAL PULSES: Peripheral pulses 2+ throughout GI: COMMON NORMALS: Normal to inspection, nondistended, normoactive bowel sounds present, Soft to palpation, non-tender, No hepatosplenomegaly present, no masses and no bruits PALPATION: Yes Soft to palpation and Yes No hepatosplenomegaly present Extremity: COMMON NORMALS: normal to inspection, full ROM, capillary refill normal, no joint enlargement, no clubbing, cyanosis or edema, no calf tenderness and no pedal edema Neuro: COMMON NORMALS: patient oriented x3, CN's II-XII intact bilaterally, moves all extremities, no focal motor deficits, no sensory deficits noted, deep tendon reflexes 2+ bilaterally and gait normal SENSORIUM/ORIENTATION: Yes alert Psych: COMMON NORMALS: mental status grossly normal, Normal thought process present, cooperative, normal affect, speech normal, activity/motor behavior normal, denies hallucinations, denies homicidal ideation and denies suicidal ideation SPEECH: Yes normal speech THOUGHT PROCESS: Normal thought process present Skin: COMMON NORMALS: no rashes or lesions noted, no wounds, turgor normal, no jaundice, no petechiae and no mottling GENERAL SKIN EXAM: no rashes or lesions noted and turgor normal Data : 03/10/20 10:13 03/10/20 10:13 A&P Assessment and plan (1) NSTEMI (non-ST elevated myocardial infarction): Status: Acute (2) CHF (congestive heart failure): Status: Acute Qualifiers: Heart failure chronicity: acute on chronic Heart failure type: unspecified Qualified Code(s): I50.9 - Heart failure, unspecified (3) Hyperlipidemia: Status: Acute Qualifiers: Hyperlipidemia type: unspecified Qualified Code(s): E78.5 - Hyperlipidemia, unspecified (4) ASHD (arteriosclerotic heart disease): Status: Acute (5) EDNA (obstructive sleep apnea): Status: Acute (6) HTN (hypertension): Status: Acute Qualifiers: Hypertension type: essential hypertension Qualified Code(s): I10 - Essential (primary) hypertension Additional A&P Information Admit to CSU #NSTEMI Rising troponins, ongoing chest pain Started on anticoagulation with full dose Lovenox 800 mg every 12 hours. Given loading dose Plavix in the ER. Continue aspirin 81 mg daily. Continue metoprolol 25 mg p.o. twice daily. Statins, start Nitro-Bid topically every 6 hours. pain control with morphine To monitor blood pressure. Cardiology consult with Dr. Teran #CHF, patient has missed her Lasix over the past 2 days. There are crackles on exam over bilateral lung bae currently. We will go ahead and administer 40 mg of IV Lasix Right now and resume her home dose starting tomorrow. #Hyperlipidemia: continue statins # HTN: Currently well controlled BP Attestations Medical Necessity Statement*: anticioate > 2midnight for management of NSTEMI + acute on chrnic CHF Coding Level of Care Code Acute Transitions Rn Care Coordinator for [facility] Fwd Exam Comprehensive Diagnoses NSTEMI (non-ST elevated myocardial infarction) I21.4 CHF (congestive heart failure) I50.9 Heart failure chronicity: acute on chronic Heart failure type: unspecified Hyperlipidemia E78.5 Hyperlipidemia type: unspecified ASHD (arteriosclerotic heart disease) I25.10 EDNA (obstructive sleep apnea) G47.33 HTN (hypertension) I10 Hypertension type: essential hypertension
[2020-03-10] MEDS: lidocaine 2% viscous 15 ML, aluminum-mag hydrox-simethicon 30 ML, sucralfate oral liq 1 GM PO (15:51)
[2020-03-10] MEDS: nitroglycerin 1 gm/inch oint Pkt 1 INCH TOPICAL ×2 (15:55→20:55)
[2020-03-10] MEDS: morphine 4 mg/mL SDV 1 mL 2 MG IVP (15:55)
[2020-03-10] MEDS: ondansetron 2 mg/ML SDV 2 mL 4 MG IVP (15:56)
[2020-03-10 16:37] LABS: Glucose Point of Care 232 mg/dL (70-110)
[2020-03-10 16:40] LABS: Estmated Average Glucose 123; Hemoglobin A1C 5.9 % (4.0-6.0)
[2020-03-10 16:44] LABS: Troponin 5 6HR 172.9 ng/L (0-10); Troponin 5 6HR Delta 150.9 ng/L (0-12)
--- NOTE | 2020-03-10 16:47 | PC.NURSE ---
Lab called critical result to ED, pt not in ED any longer. Attempted to call CSU to report to patient care nurse, nurse unavailable. Dr Garcia called and notified of critical 6 hr troponin of 172.9, delta of 150.9.
[2020-03-10 16:49] LABS: NT Pro B Type Natriuretic Pept 890 pg/mL (0-125)
[2020-03-10] MEDS: potassium chloride premix 40 MEQ/100 ML PREMIX 25 MEQ IV (16:59)
[2020-03-10] MEDS: FUROsemide 10 mg/mL SDV 4mL 40 MG IVP (17:00)
[2020-03-10] MEDS: lidocaine 1% INJ 20 mL 5 ML IV (17:01)
[2020-03-10 18:40] LABS: Glucose Point of Care 133 mg/dL (70-110)
[2020-03-10] MEDS: metoclopramide 5 mg/mL SDV 2 mL 10 MG IVP (18:50)
--- NOTE | 2020-03-10 19:08 | PC.NURSE ---
Dr. Teran notified of patient complaining of nausea not relieved by Zofran or GI cocktail. Reglan just given recently. Patient is not complaining of chest pain. Patient is diaphoretic. Day shift nurse states that patient was not diaphoretic earlier. Ordered to change Zofran to q4 hour. Patient states that she became nauseated like this when she was given Morphine after her bariatric surgery. Patient was given Morphine a few hours ago. Ordered to get EKG.
--- NOTE | 2020-03-10 19:12 | ECG_ITS ---
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 Measurements Intervals [place] Rate: 68 P: 33 IA: 147 QRS: -2 QRSD: 111 T: -26 QT: 399 QTc: 427 Interpretive Statements SINUS RHYTHM PROBABLE LATERAL MYOCARDIAL INFARCTION [35 ms Q WAVE IN I/aVL/V5/V6], PROBABLY OLD INFERIOR MYOCARDIAL INFARCTION [40+ ms Q WAVE AND/OR ST/T ABNORMALITY IN II/aVF], OF INDETERMINATE AGE Compared to ECG 03/10/2020 11:59:33 No significant changes Electronically Signed On 03-10-2020 19:44:00 CDT by Taylor Grande M.D. [id number]
[2020-03-10] MEDS: atorvastatin 40 mg Tablet PO (19:36)
[2020-03-10] MEDS: metoprolol tartrate 25 mg Tablet PO (19:36)
[2020-03-10] MEDS: gabapentin 300 mg Capsule PO (19:36)
[2020-03-10] MEDS: trazodone 50 mg Tablet PO (19:39)
--- NOTE | 2020-03-10 19:40 | PC.NURSE ---
Nurse asks patient how her stomach is feeling and she states a little better.
[2020-03-10 21:37] LABS: SARS Covid-2 Antigen Negative (Negative)
--- NOTE | 2020-03-10 22:28 | PC.NURSE ---
Patient is currently resting with eyes closed. Will monitor.
[2020-03-11] VITALS (37 sets, daily range): BP systolic 84–153; BP diastolic 61–92; PULSE 78–100; RESP 12–26; TEMP 36.6–37.1; O2SAT 87–97
[2020-03-11] MEDS: ondansetron 2 mg/ML SDV 2 mL 4 MG IVP (00:08)
--- NOTE | 2020-03-11 00:10 | PC.NURSE ---
Patient was awoken for rounding and vital signs. Nurse asked patient how she feels and patient stated still nauseated. Patient denies chest pain and only complains of nausea. Patient was educated about PRN nausea medications and verbalized understanding. Patient was given PRN Zofran per her request and quickly fell back asleep after receiving it. Will monitor. VSS. Patient was assisted to bedside commode and back to bed. Call light is within reach. Patient has been educated not to get up without assistance and verbalized understanding.
[2020-03-11] MEDS: nitroglycerin 1 gm/inch oint Pkt 1 INCH TOPICAL (03:18)
[2020-03-11] MEDS: enoxaparin 100 mg/mL Syringe SUBCUT (03:18)
[2020-03-11] MEDS: metoclopramide 5 mg/mL SDV 2 mL 10 MG IVP (03:20)
[2020-03-11 04:48] LABS: Basophils % 0.1 %; Hematocrit 44.9 % (37.0-47.0); Hemoglobin 13.6 g/dL (11.5-15.3); Lymphocytes # 1.7 10^3/uL (0.8-4.8); Lymphocytes % 18.2 %; Mean Corpuscular HGB Conc 30.3 g/dL (30.0-36.0); Mean Corpuscular Hemoglobin 27.8 pg (28.0-34.0); Mean Corpuscular Volume 91.8 fL (81-99); Monocytes # 0.4 10^3/uL (0.2-0.9); Monocytes % 4.6 %; Neutrophils # 7.24 10^3/uL (1.8-7.7); Neutrophils % 76.8 %; Nucleated Red Blood Cells % 0 %; Platelet Count 293 10^3/cmm (130-400); Red Blood Count 4.89 10^6/uL (4.1-5.3); Red Cell Distribution Width 17.4 % (12.1-15.1); White Blood Count 9.4 10^3/uL (4.0-10.0)
[2020-03-11 05:21] LABS: Alanine Aminotransferase 15 U/L (0-33); Albumin Level 3.4 g/dL (3.5-5.2); Alkaline Phosphatase 89 IU/L (35-105); Aspartate Amino Transferase 69 U/L (0-32); Blood Urea Nitrogen 16 mg/dL (8-23); Calcium 8.9 mg/dL (8.5-10.5); Carbon Dioxide 25 mmol/L (22-29); Chloride 103 mmol/L (98-107); Globulin 3.8 g/dL (1.3-4.6); Glomerular Filtration Rate 55.8 mL/min (90-130); Glucose 136 mg/dL (65-115); Osmolality Calculated 291 mOsm/kg (285-295); Sodium 139 mmol/L (136-145); Total Bilirubin 0.4 mg/dL (0.15-1.2); Total Protein 7.2 g/dL (6.6-8.7)
[2020-03-11] MEDS: diphenhydrAMINE 50 mg Capsule PO (06:02)
[2020-03-11] MEDS: sodium chloride 0.9% 1,000 ML 50 ML IV (06:03)
--- NOTE | 2020-03-11 07:00 | XACV_ITS ---
Exam Room: [facility] Ht: 163 cm Wt: 99 kg BSA: 2.17 m2 Gender: Female : 1955 Any Known Allergies: Other Exam Priority: Routine Procedure(s): Procedure Description: Diagnostic procedure Procedure Description: Coronary Angiography Diagnostic Cath Status: Urgent Diagnostic Findings * LM has 0% stenosis. * LAD has 0% stenosis. * CX has 0% stenosis. * Distal Right Coronary Artery: Severe 100% stenosis, BRUNO: 0 flow. * Coronary angiography shows right dominance. PCI Status: Elective Interventional Findings * Distal Right Coronary Artery: 100% stenosis treated with AB TREK 2.50X12 RX BALLOON and MDRoss R ANAND 3.0X12 SIM. 0% residual stenosis, BRUNO: 3 flow. Conclusions 1. There is severe coronary artery disease with one vessel disease. 2. Distal Right Coronary Artery was treated with Balloon and Drug Eluting Stent. Recommendations * Continue current medical management and risk factor modification. Pressures Phase:Rest AO : 174 / 107 ( 136 ) @ 2:36:00 AM 174 / 107 ( 135 ) @ 2:36:00 AM 200 / 186 ( 142 ) @ 2:40:00 AM / ( 9 ) @ 2:46:00 AM LV : 180 / 6 / @ 2:35:00 AM 181 / 5 / @ 2:36:00 AM Valves Phase:DefaultPhase AV : 5.0 @ 8:41:14 AM AV Mean Gradient: 7.0 @ 8:41:14 AM Clinical Evaluation EBL: 5mL-10mL Procedural Details Procedure Consent Obtained. Pre-Procedure Time Out. Identified patient by full name and date of as verbalized by the patient/guarantor. Does the consent match the physician's order: Yes. Accurate & Complete Informed Consent: Yes. Inpatient/Outpatient History & Physical on Chart: Yes. If H&P is completed, is and addenduem needed: No; If yes, is the addendum complete: N/A. Visualize and Verify Site with Patient/Guarantor: N/A. Relevant Radiology Images available: Yes. Pre-op teaching completed and patient verbalized understanding. The risks, benefits, and alternatives of sedation and/or procedure were discussed by physician. The patient agrees to continue. Procedure started. Correct patient, site and procedure confirmed by cath team. Current diagnosis: Chest Pain. PERRLA. Strong, equal hand heel splitter bilaterally. Lungs clear x 5 lobes. IV Site on Arrival: 20 gauge in the left forearm. IV Fluids: 0.9% NaCl at KVO. 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 Pre Procedural Pulses: bilateral dorsalis pedis was 2+. Pre Procedural Pulses: bilateral posterior tibial was 2+. Pre Procedural Pulses: bilateral radial was 2+. Oxygen started at 2liters/min via nasal canula. bilateral groins was prepped with chloroprep then draped in the usual sterile fashion. right radial was prepped with chloroprep then draped in the usual sterile fashion. Physician notified. Baseline sample Acquired. HR: 96 BPM. Equipment: 6F - Radial. StackAdaptIST Manifold Kit Model BT 2000. Cardiac Cath Pack. Heparinized Saline (2 units/mL), 1000 mL bag. Physician arrived. Physician scrubbed in. Immediate Pre-Procedure Time Out. Correct Patient: Yes; Correct Procedure: Yes; Correct Site: Yes; Correct Patient Position: Yes; Correct Supplies: Yes; Dried Flammable Prep: Yes; Blood Products Available: No;. Lidocaine 1% infiltrated to the right radial. Arterial access obtained. A 5 nigerien TIG catheter in over wire. Glidewire inserted. EDP Sample taken: LV 180/6,51; HR: 111 BPM; SpO2: 91%. Pullback taken: LV 181/5,46; AO 174/107(136); Mean: 7mmHg, Peak to Peak: 5mmHg, SEP: 27sec/min; HR: 102 BPM; SpO2: 95%. Catheter redirected to the LCA. Multiple views taken of left coronary artery. Catheter redirected to the RCA. Multiple views taken of right coronary artery. Catheter out. 5FR sheath exchanged for new 5FR sheath. 6 nigerien XB 3 guide catheter was inserted over the wire. Guide catheter out. A 5 nigerien Jesus catheter in over wire. View taken. Catheter out. 6 nigerien AL 0.75 guide catheter was inserted over the wire. [place] guidewire was advanced through the guide catheter to lesion in the mid RCA. Runthrough wire inserted. Inflation number : 1 A AB TREK 2.50X12 RX BALLOON was prepped and advanced across the Dist RCA , then inflated to 14 DEX for 0:23 seconds. Inflation number: 2 The AB TREK 2.50X12 RX BALLOON was reinflated across the Dist RCA, to 12 DEX for 0:18 seconds. Inflation number: 3 The AB TREK 2.50X12 RX BALLOON was reinflated across the Dist RCA, to 14 DEX for 0:13 seconds. Inflation number: 4 The AB TREK 2.50X12 RX BALLOON was reinflated across the Dist RCA, to 14 DEX for 0:15 seconds. Balloon out. Inflation Number : 5 A NORMA Nelson ANAND 3.0X12 SIM -Lot Number# [id number] was prepped and advanced across the Dist RCA. The stent was deployed at 16 DEX for 0:28 seconds. Stent expiration date: 12/06/2021. Stent balloon out over wire. Guide catheter out. TR band placed. Hemostasis obtained. Post Procedure: Pulses reassessed and unchanged. PERRLA. Strong, equal hand heel splitter bilaterally. No VTE prophylaxis required. Medication's Wasted: Lidocaine 1% = 18 mL. Medication's Wasted: Nitro = 49.8 mg. Medication's Wasted: Heparin = 1000 units. Total IV fluids: 75 mL. Contrast type used: Visipaque 320 mgI/mL, 500 mL bottle. PCI Indication: NSTE. [facility] Clinical Fraility Score: 4: Vulnerable. Loan Documentation Specialist Indications: Suspected CAD. Chest Pain Symptom Assessment: Typical Angina Symptoms. Cardiovascular Instability: No. Post-op diagnosis: CAD. Complications: None. Estimated blood loss: 5mL-10mL. Procedure completed. Patient transferred by wheelchair to 1st floor. Vital chart was stopped. Dr. Early updated daughter via telephone. Access Site Site: Right Radial artery Sheath Size: 6 Fr Hemostasis Success: Unsuccessful Procedure Medications Start: 7:15 AM Stop: 7:15 AM Medication: Zofran (ondansetron) Amount: 8 mg Route: I.V. Start: 7:19 AM Stop: 7:19 AM Medication: Versed 1 mg and Fentanyl 25 mcg Amount: 1 Route: I.V. Start: 7:27 AM Stop: 7:27 AM Medication: Nitrogylcerin Amount: 200 mcg Route: I.A. Start: 7:44 AM Stop: 7:44 AM Medication: Versed Amount: 0.5 mg Route: I.V. Start: 8:00 AM Stop: 8:00 AM Medication: Versed Amount: 0.5 mg Route: I.V. Start: 8:01 AM Stop: 8:01 AM Medication: Fentanyl Amount: 25 mcg Route: I.V. Start: 8:24 AM Stop: 8:24 AM Medication: Fentanyl Amount: 25 mcg Route: I.V. Start: 8:24 AM Stop: 8:24 AM Medication: Fentanyl Amount: 25 mcg Route: I.V. I, the attending physician, have reviewed and verified all procedure medications. Yes, all medications given per verbal order History/Risk Factors Hypertension: Yes Dyslipidemia: Yes Peripheral Arterial Disease (PAD): No Myocardial Infarction (OR): Yes Obesity: Yes Renal Disease: No Tobacco Use: Current/Recent(w/in 1 year) Prior Interventions PCI: Yes CABG: No Valve Surgery: No Report Signatures Finalized by David Early MD on 03/23/2020 07:33 PM
--- NOTE | 2020-03-11 07:12 | PC.NURSE ---
to rn labor delivery
[2020-03-11] MEDS: pantoprazole DR 40 mg Tablet PO (09:28)
[2020-03-11] MEDS: metoprolol tartrate 25 mg Tablet PO ×2 (09:28→17:18)
[2020-03-11] MEDS: gabapentin 300 mg Capsule PO ×3 (09:28→21:15)
[2020-03-11] MEDS: aspirin 325 mg Tablet PO (09:28)
[2020-03-11] MEDS: levothyroxine 125 mcg Tablet PO (09:28)
[2020-03-11] MEDS: FUROsemide 40 mg Tablet PO (09:29)
--- NOTE | 2020-03-11 15:52 | PM.PN ---
Subjective Subjective: Interval history: Patient went for left heart catheterization this morning and had a stent placed into the LAD. Since the procedure she feels asymptomatic. There is no further chest pain dyspnea or palpitations. She is currently euvolemic saturating 93% on room air. Blood pressure is well controlled. Medications: Reviewed: Yes Vitals/I&O/Wt Last Vital Signs Temp 98.3 F 03/11/20 15:38 Pulse 98 03/11/20 15:38 Resp 18 03/11/20 15:38 BP 137/86 03/11/20 15:38 Pulse Ox 93 03/11/20 15:38 03/11/20 03/11/20 03/11/20 06:59 14:59 22:59 Intake Total 300 / 300 480 / 480 Output Total 400 / 2000 800 / 800 600 / 1400 Balance -100 / -1700 -320 / -320 -600 / -920 Weight last 48 hrs Weight 99.337 kg Physical Exam Const: COMMON NORMALS: no acute distress, average body habitus, patient oriented x3, no limitations, healthy appearing, alert and well nourished HENMT: COMMON NORMALS: normocephalic and atraumatic HEAD & SCALP: normocephalic and atraumatic Eye: COMMON NORMALS: Equal, round and reactive pupils present, EOMs intact bilaterally, conjunctivae normal and no scleral icterus CONJUNCTIVA: Yes conjunctivae normal PUPIL: Yes Equal, round and reactive pupils present Neck/C-Spine: COMMON NORMALS: no JVD Resp: COMMON NORMALS: normal respiratory effort, No retractions, No use of accessory muscles, clear to auscultation bilaterally and percussion normal AUSCULTATION: clear to auscultation bilaterally, crackles and rales PERCUSSION: percussion normal Cardio: COMMON NORMALS: no JVD, regular rate, regular rhythm, S1 normal heart sound present, S2 normal heart sound present, No gallops present (Cardio), No clicks present (Cardio), No murmurs present (Cardio), No rub (Cardio) and Peripheral pulses 2+ throughout RATE: regular rate RHYTHM: regular rhythm HEART SOUNDS: S1 normal heart sound present and S2 normal heart sound present PERIPHERAL PULSES: Peripheral pulses 2+ throughout GI: COMMON NORMALS: Normal to inspection, nondistended, normoactive bowel sounds present, Soft to palpation, non-tender, No hepatosplenomegaly present, no masses and no bruits PALPATION: Yes Soft to palpation and Yes No hepatosplenomegaly present Extremity: COMMON NORMALS: normal to inspection, full ROM, capillary refill normal, no joint enlargement, no clubbing, cyanosis or edema, no calf tenderness and no pedal edema Neuro: COMMON NORMALS: patient oriented x3, CN's II-XII intact bilaterally, moves all extremities, no focal motor deficits, no sensory deficits noted, deep tendon reflexes 2+ bilaterally and gait normal SENSORIUM/ORIENTATION: Yes alert Psych: COMMON NORMALS: mental status grossly normal, Normal thought process present, cooperative, normal affect, speech normal, activity/motor behavior normal, denies hallucinations, denies homicidal ideation and denies suicidal ideation SPEECH: Yes normal speech THOUGHT PROCESS: Normal thought process present Skin: COMMON NORMALS: no rashes or lesions noted, no wounds, turgor normal, no jaundice, no petechiae and no mottling GENERAL SKIN EXAM: no rashes or lesions noted and turgor normal Data : 03/11/20 04:08 03/11/20 04:08 A&P Assessment and plan (1) NSTEMI (non-ST elevated myocardial infarction): Status: Acute (2) CHF (congestive heart failure): Status: Acute Qualifiers: Heart failure type: unspecified Heart failure chronicity: acute on chronic Qualified Code(s): I50.9 - Heart failure, unspecified (3) Hyperlipidemia: Status: Acute Qualifiers: Hyperlipidemia type: unspecified Qualified Code(s): E78.5 - Hyperlipidemia, unspecified (4) ASHD (arteriosclerotic heart disease): Status: Acute (5) EDNA (obstructive sleep apnea): Status: Acute (6) HTN (hypertension): Status: Acute Qualifiers: Hypertension type: essential hypertension Qualified Code(s): I10 - Essential (primary) hypertension Additional A&P Information Admit to CSU #NSTEMI Rising troponins, ongoing chest pain Patient is status post left heart catheterization this morning with stent placement to the LAD. Doing well postprocedure, no current chest pain. Continue aspirin. Add plavix 75mg po qd starting tomorrow Continue metoprolol 25 mg p.o. twice daily. Continue Statins #CHF, Continue lasix 40mg po qd #Hyperlipidemia: continue statins # HTN: Currently well controlled BP Full code DVT ppx: loevnox Attestations Medical Necessity Statement*: Status post angiogram with stent placement today. Coding Level of Care Code Acute Oil Sales And Service Rep for g Fwd Diagnoses NSTEMI (non-ST elevated myocardial infarction) I21.4 CHF (congestive heart failure) I50.9 Heart failure type: unspecified Heart failure chronicity: acute on chronic Hyperlipidemia E78.5 Hyperlipidemia type: unspecified ASHD (arteriosclerotic heart disease) I25.10 EDNA (obstructive sleep apnea) G47.33 HTN (hypertension) I10 Hypertension type: essential hypertension
--- NOTE | 2020-03-11 16:07 | PM.PN ---
Subjective Subjective: Interval history: She had coronary angiogram with Dr. Early and was found to have occluded stent in mid to distal RCA. She underwent SIM placement with good result. Medications: Reviewed: Yes Medication Review Details: Current Medications Acetaminophen (Tylenol) 650 mg PO Q6H PRN PRN Reason: Mild/Mod Pain Or Temp >/= 101 Al Hydrox/Mg Hydrox/Simethicone (Maalox) 15 ml PO Q6H PRN PRN Reason: INDIGESTION Al Hydrox/Mg Hydrox/Simethicone (Maalox) 30 ml PO Q15M PRN PRN Reason: INDIGESTION Alprazolam (Xanax) 0.25 mg PO TID PRN PRN Reason: ANXIETY Amitriptyline HCl (Elavil) 50 mg PO BEDTIME [facility] Last Admin: 03/10/20 19:36 Dose: 50 mg Documented by: Aspirin (Aspirin Ec) 81 mg PO DAILY [facility] Atorvastatin Calcium (Lipitor) 40 mg PO BEDTIME [facility] Last Admin: 03/10/20 19:36 Dose: 40 mg Documented by: Atropine Sulfate (Atropine) 0.5 mg IVP PRN PRN PRN Reason: Symptomatic bradycardia Clopidogrel Bisulfate (Plavix) 75 mg PO DAILY [facility] Enoxaparin Sodium (Lovenox) 40 mg SUBCUT Q24H [facility] Furosemide (Lasix) 40 mg PO DAILY [facility] Last Admin: 03/11/20 09:29 Dose: 40 mg Documented by: Gabapentin (Neurontin) 300 mg PO TID [facility] Last Admin: 03/11/20 16:15 Dose: 300 mg Documented by: Sodium Chloride (Sodium Chloride 0.9%) 1,000 mls @ 50 mls/hr IV .Q20H ONE Stop: 03/12/20 01:59 Last Admin: 03/11/20 06:03 Dose: 50 mls/hr Documented by: Levothyroxine Sodium (Synthroid) 125 mcg PO DAILY [facility] Last Admin: 03/11/20 09:28 Dose: 125 mcg Documented by: Magnesium Hydroxide (Milk Of Magnesia) 30 ml PO DAILY PRN PRN Reason: CONSTIPATION Metoclopramide HCl (Reglan) 10 mg IVP Q8H PRN PRN Reason: NAUSEA AND VOMITING Last Admin: 03/11/20 03:20 Dose: 10 mg Documented by: Metoprolol Tartrate (Lopressor) 25 mg PO BID [facility] Last Admin: 03/11/20 09:28 Dose: 25 mg Documented by: Morphine Sulfate (Morphine) 2 mg IVP Q6H PRN PRN Reason: SEVERE PAIN Last Admin: 03/10/20 15:55 Dose: 2 mg Documented by: Naloxone HCl (Narcan) 0.1 mg IVP Q2M PRN PRN Reason: RESPIRATORY RATE < 8/MIN Nitroglycerin (Nitrostat) 0.4 mg SUBLINGUAL Q5M PRN PRN Reason: CHEST PAIN Ondansetron HCl (Zofran) 4 mg IVP Q4H PRN PRN Reason: vomiting, or N/V if npo Last Admin: 03/11/20 00:08 Dose: 4 mg Documented by: Pantoprazole Sodium (Protonix) 40 mg PO DAILY [facility] Last Admin: 03/11/20 09:28 Dose: 40 mg Documented by: Temazepam (Restoril) 15 mg PO BEDTIME PRN PRN Reason: INSOMNIA Tizanidine HCl (Zanaflex) 4 mg PO Q6H PRN PRN Reason: Muscle Spasm Tramadol HCl (Ultram) 50 mg PO BID PRN PRN Reason: Pain Trazodone HCl (Desyrel) 50 mg PO BEDTIME PRN PRN Reason: Sleep Last Admin: 03/10/20 19:39 Dose: 50 mg Documented by: Vitals/I&O/Wt Last Vital Signs Temp 98.3 F 03/11/20 15:38 Pulse 98 03/11/20 15:38 Resp 18 03/11/20 15:38 BP 137/86 03/11/20 15:38 Pulse Ox 93 03/11/20 15:38 03/11/20 03/11/20 03/11/20 06:59 14:59 22:59 Intake Total 300 / 300 480 / 480 Output Total 400 / 2000 800 / 800 600 / 1400 Balance -100 / -1700 -320 / -320 -600 / -920 Weight last 48 hrs Weight 219 lb Physical Exam Const: COMMON NORMALS: no acute distress, patient oriented x3 and alert GENERAL APPEARANCE: cooperative, comfortable, well kempt and well hydrated NUTRITIONAL APPEARANCE: obese HENMT: COMMON NORMALS: hearing grossly normal bilaterally, external ears normal and moist oral mucous membranes FACE & SINUS: normal facial exam EXTERNAL EAR: Yes external ears normal Eye: COMMON NORMALS: EOMs intact bilaterally and no scleral icterus GENERAL EYE: appearance normal, both eyes and all related structures Neck/C-Spine: COMMON NORMALS: supple and no JVD GENERAL: Yes normal visual inspection CAROTIDS: Yes normal carotid upstroke Lymph: LYMPHATIC: no lymphadenopathy noted Chest: COMMONS NORMALS: normal inspection of the chest and normal palpation of entire chest wall Resp: COMMON NORMALS: clear to auscultation bilaterally AUSCULTATION: clear to auscultation bilaterally, no crackles, no rales, no rhonchi and no wheezes Cardio: COMMON NORMALS: no JVD, regular rate, regular rhythm, S1 normal heart sound present, S2 normal heart sound present and Peripheral pulses 2+ throughout PALPATION: normal PMI RATE: regular rate RHYTHM: regular rhythm HEART SOUNDS: S1 normal heart sound present, S2 normal heart sound present, no gallops and no murmurs BRUITS: no carotid bruits PERIPHERAL PULSES: Peripheral pulses 2+ throughout, radial pulses present, posterior tibial pulses present and dorsalis pedis present Extremity: GENERAL: Yes edema and No pallor RIGHT UPPER EXTREMITY: Yes wrist (TR band in place) Neuro: COMMON NORMALS: patient oriented x3, CN's II-XII intact bilaterally and no focal motor deficits SENSORIUM/ORIENTATION: Yes alert Psych: COMMON NORMALS: Normal thought process present and speech normal APPEARANCE: Yes well kempt SPEECH: Yes normal speech MOOD & AFFECT: Yes euthymic mood THOUGHT PROCESS: Normal thought process present THOUGHT CONTENT: Yes Normal thought content present Data : 03/11/20 04:08 03/11/20 04:08 A&P Assessment and plan (1) NSTEMI (non-ST elevated myocardial infarction): Patient has typical anginal chest pain. EKG showing sinus rhythm with normal axis. old inferior wall TX and possible anterolateral TX of indeterminate age. Increase in troponin with significant delta change and peak troponin of 173. -she is s/p SIM x 1 to mid to distal RCA. received total of plavix 600mg -Continue with ASA, plavix, metoprolol and atorvastatin. Status: Acute (2) ASHD (arteriosclerotic heart disease): Status: Acute (3) CHF (congestive heart failure): Status: Acute Qualifiers: Heart failure type: unspecified Heart failure chronicity: acute on chronic Qualified Code(s): I50.9 - Heart failure, unspecified (4) Hyperlipidemia: Status: Acute Qualifiers: Hyperlipidemia type: unspecified Qualified Code(s): E78.5 - Hyperlipidemia, unspecified (5) EDNA (obstructive sleep apnea): Status: Acute (6) Obesity: Status: Acute Qualifiers: Obesity classification: adult class 2 (BMI 35 - 39.9) Additional A&P Information Chronic active smoker : counselled on smoking cessation; she swears she is not going to smoke again. hypokalemia: Replaced GERD Hypothyroidism Thank you for allowing me to participate in patient's care. Please feel free to call with questions or concerns. Attestations Medical Necessity Statement*: Needs hospital stay for NSTEMI. Coding Level of Care Code Acute Ore Roaster for [facility] Fwd Exam Comprehensive Diagnoses NSTEMI (non-ST elevated myocardial infarction) I21.4 ASHD (arteriosclerotic heart disease) I25.10 CHF (congestive heart failure) I50.9 Heart failure type: unspecified Heart failure chronicity: acute on chronic Hyperlipidemia E78.5 Hyperlipidemia type: unspecified EDNA (obstructive sleep apnea) G47.33 Obesity E66.9 Obesity classification: adult class 2 (BMI 35 - 39.9)
[2020-03-11] MEDS: perflutren protein-a microsphr 0.22 mg/mL SDV 3 mL IV (16:52)
--- NOTE | 2020-03-11 18:10 | USCV_ITS ---
Cid Peri Age: 64 Gender: F : 1955 Exam Date: 03/11/2020 16:26 Ordering Phys: Venus Teran MD ([email or web address]) Technologist: Rose Clark [place]am [place] [facility] [place]ication: NSTEMI BP: 117 / 83 HR: 92 Rhythm: Sinus Technical Quality: Adequate MEASUREMENTS (Male / Female) Normal Values 2D ECHO LV Diastolic Diameter PLAX 3.8 cm 4.2 - 5.9 / 3.9 - 5.3 cm LV Systolic Diameter PLAX 2.6 cm LV Chamber Size 4.0 cm IVS Diastolic Thickness 1.0 cm 0.6 - 1.0 / 0.6 - 0.9 cm IVS Systolic Thickness 1.7 cm LVPW Diastolic Thickness 1.5 cm 0.6 - 1.0 / 0.6 - 0.9 cm LVPW Systolic Thickness 1.7 cm RV Chamber Size 2.3 cm LVOT Diameter 2.0 cm LV Ejection Fraction 2D Teich 60.4 % LV Ejection Fraction MOD 2C 32.0 % LV Ejection Fraction 2C AL 31.5 % LA Diameter 3.6 cm LA Width 3.3 cm LA Height 5.0 cm RA Width 2.1 cm RA Height 3.7 cm Aorta at Sinotubular Diameter 3.1 cm M-MODE LV Diastolic Diameter MM 3.9 cm 4.2 - 5.9 / 3.9 - 5.3 cm LV Systolic Diameter MM 2.9 cm LV Ejection Fraction MM Teich 51.3 % IVS Diastolic Thickness MM 1.6 cm 0.6 - 1.0 / 0.6 - 0.9 cm IVS Systolic Thickness MM 1.5 cm LVPW Diastolic Thickness MM 1.2 cm 0.6 - 1.0 / 0.6 - 0.9 cm LVPW Systolic Thickness MM 2.0 cm RV Diastolic Diameter MM 1.6 cm Aortic Annulus Diameter 3.6 cm LA Ao Ratio MM 1.0 MV E Point Septal Separation 0.4 cm DOPPLER AV Peak Velocity 130.0 cm/s LVOT Peak Velocity 77.0 cm/s AV Area Cont Eq vti 2.2 cm squared AV Area Cont Eq pk 1.9 cm squared MV Area PHT 5.6 cm squared Mitral E to A Ratio 0.9 MV E' Velocity 10.0 cm/s Mitral E to MV E' Ratio 12.5 Mitral E to LV E' Lateral Ratio 9.8 Mitral E to LV E' Septal Ratio 17.7 TR Peak Velocity 153.0 cm/s TR Peak Gradient 9.4 mmHg TR Mean Velocity 101.9 cm/s TR Mean Gradient 5.0 mmHg TR Velocity Time Integral 34.4 cm TV Peak E Velocity 69.0 cm/s Right Atrial Pressure 3.0 mmHg Pulmonary Artery Systolic Pressu 12.4 mmHg PV Peak Velocity 70.0 cm/s RV Acceleration Time 0.1 s RV Ejection Time 0.3 s RV AcT/ET 0.5 FINDINGS Left Ventricle Normal left ventricular size, systolic function with no regional wall motion abnormalities. Left ventricular ejection fraction is estimated at 55-60 %. Normal diastolic function. Right Ventricle Normal right ventricular size and systolic function. Right ventricular systolic pressure 12.4 mmHg. Right Atrium Normal right atrial size. Left Atrium Upper normal left atrial size. Mitral Valve Mild mitral annular calcification. No mitral valve stenosis. Trace mitral valve regurgitation. Aortic Valve Probably trileaflet aortic valve. No aortic valve stenosis. No aortic valve regurgitation. Tricuspid Valve Structurally normal tricuspid valve. Trace tricuspid valve regurgitation. Pulmonic Valve Pulmonic valve not well visualized. Pericardium No pericardial effusion. Aorta Normal size aortic root and proximal ascending aorta. CONCLUSIONS 1. This is a technically difficult study. Ultrasound enhancing agent was used per protocol. 2. Normal left ventricular size, systolic function with no regional wall motion abnormalities. Left ventricular ejection fraction is estimated at 55-60 %. Normal diastolic function. 3. Normal pulmonary artery pressure. 4. No significant valvular abnormality. Venus Teran MD (Electronically Signed) Final Date: 12 March 2020 10:30 S
--- NOTE | 2020-03-11 19:56 | PC.NURSE ---
Rounding: Patient resting in bed. Patient denies any pain at this time. Patient R wrist is clean dry and intact no hematoma noted. Will continue to monitor.
--- NOTE | 2020-03-11 20:04 | PC.NURSE ---
received from cardiac roving tester laboratory at 0845.report received.pt is drowsy but easily awakened.sr on monitor.right wrist with tr band on and inflated.right hand is warm touch and with brisk capillary refill.palpable radial pulse noted distal to tr band no hematoma noted.vss.instructed in activity restrictions s/p radial artery procedure..and instructed to notify staff for any bleeding,bruising at site,numbness or pain in right hand..or for any concerns at all.also instructed pt to notify staff if needs to get up to bathroom.pt verb understanding of instructions.tr band was slowly deflated from [id number] and removed.site dressed with 2x2 guaze and secured with biocclusive drsg.no hematoma noted.again instructed in activity restrictions.at approx 1630,pt got up to bsc with assist...and noted to go into an svt with rate at 150.pt asymptomatic.lasted very briefly.pt states thats why they started me on metoprolol .
[2020-03-11] MEDS: atorvastatin 40 mg Tablet PO (21:16)
[2020-03-12] VITALS (12 sets, daily range): BP systolic 79–105; BP diastolic 50–72; PULSE 82–118; RESP 15–22; TEMP 36.6–36.9; O2SAT 2–97
[2020-03-12 03:51] LABS: Basophils % 0.5 %; Eosinophils # 0.1 10^3/uL (0.0-0.8); Eosinophils % 1.3 %; Hematocrit 41.9 % (37.0-47.0); Hemoglobin 12.8 g/dL (11.5-15.3); Lymphocytes # 3.5 10^3/uL (0.8-4.8); Lymphocytes % 39.6 %; Mean Corpuscular HGB Conc 30.5 g/dL (30.0-36.0); Mean Corpuscular Hemoglobin 28.1 pg (28.0-34.0); Mean Corpuscular Volume 92.1 fL (81-99); Mean Platelet Volume 10.8 fL (7.4-10.4); Monocytes # 0.7 10^3/uL (0.2-0.9); Monocytes % 7.4 %; Neutrophils # 4.43 10^3/uL (1.8-7.7); Neutrophils % 50.7 %; Nucleated Red Blood Cells % 0 %; Platelet Count 283 10^3/cmm (130-400); Red Blood Count 4.55 10^6/uL (4.1-5.3); Red Cell Distribution Width 17.4 % (12.1-15.1); White Blood Count 8.7 10^3/uL (4.0-10.0)
[2020-03-12 04:11] LABS: Alanine Aminotransferase 14 U/L (0-33); Alkaline Phosphatase 76 IU/L (35-105); Anion Gap 11.8 (5-19); Aspartate Amino Transferase 46 U/L (0-32); Blood Urea Nitrogen 14 mg/dL (8-23); Calcium 8.7 mg/dL (8.5-10.5); Carbon Dioxide 29 mmol/L (22-29); Chloride 103 mmol/L (98-107); Globulin 3.4 g/dL (1.3-4.6); Glomerular Filtration Rate 45.2 mL/min (90-130); Glucose 94 mg/dL (65-115); Osmolality Calculated 290 mOsm/kg (285-295); Potassium 3.8 mmol/L (3.5-5.1); Sodium 140 mmol/L (136-145); Total Bilirubin 0.5 mg/dL (0.15-1.2); Total Protein 6.4 g/dL (6.6-8.7)
--- NOTE | 2020-03-12 04:16 | ECG_ITS ---
[facility] Test Date: 2020-03-12 Pat Name: Peri Cid Department: Room: 105 Gender: Female Tester [employer]: mona MEJIAB: 1955 Requested By: Dina Garcia Order Number: [id number] Arturo MD: Gaston Yuan M.D. Measurements Intervals [place] Rate: 115 P: AR: -1 QRS: -9 QRSD: 110 T: 269 QT: 354 QTc: 491 Interpretive Statements ATRIAL FIBRILLATION WITH RAPID VENTRICULAR RESPONSE INFERIOR MYOCARDIAL INFARCTION [40+ ms Q WAVE AND/OR ST/T ABNORMALITY IN II/aVF], OF INDETERMINATE AGE ANTEROLATERAL MYOCARDIAL INFARCTION [40+ ms Q WAVE IN I/aVL/V3-V6], OF INDETERMINATE AGE Compared to ECG 03/10/2020 19:28:44 Sinus rhythm no longer present Myocardial infarct finding still present Electronically Signed On 03-12-2020 17:43:26 CDT by Gaston Yuan M.D. [id number]
--- NOTE | 2020-03-12 04:43 | PC.NURSE ---
Got a EKG for rhythm confirmation. Patient showed afib. rate was 115 to 130. patient denied chest pain. Patient converted to normal sinus rhythm. Orders to pass along to day team. Will continue to monitor.
--- NOTE | 2020-03-12 06:07 | PC.NURSE ---
End of shift: Patient has had a uneventful shift besides the episode of afib which she converted out of. Patient was asymptomatic. Patient has had no chest pain. Patient has rested well. Will continue to monitor.
--- NOTE | 2020-03-12 08:00 | PM.PN ---
Subjective Subjective: Interval history: Patient was planned to be discharged this morning, however she was then noted to be hypotensive with SBP 80s, with orthostatic drop to 50s. She had received metoprolol and lasix a few hrs prior and these have now been placed on hold. She was given IL IVF bolus as well with imrpoveemnt to systolic 90s. Patient is asymptomatic, states her baseline BP is usually ~100mmhg Medications: Reviewed: Yes Medication Review Details: Current Medications Acetaminophen (Tylenol) 650 mg PO Q6H PRN PRN Reason: Mild/Mod Pain Or Temp >/= 101 Al Hydrox/Mg Hydrox/Simethicone (Maalox) 15 ml PO Q6H PRN PRN Reason: INDIGESTION Al Hydrox/Mg Hydrox/Simethicone (Maalox) 30 ml PO Q15M PRN PRN Reason: INDIGESTION Alprazolam (Xanax) 0.25 mg PO TID PRN PRN Reason: ANXIETY Amitriptyline HCl (Elavil) 50 mg PO BEDTIME [facility] Last Admin: 03/10/20 19:36 Dose: 50 mg Documented by: Aspirin (Aspirin Ec) 81 mg PO DAILY [facility] Atorvastatin Calcium (Lipitor) 40 mg PO BEDTIME [facility] Last Admin: 03/10/20 19:36 Dose: 40 mg Documented by: Atropine Sulfate (Atropine) 0.5 mg IVP PRN PRN PRN Reason: Symptomatic bradycardia Clopidogrel Bisulfate (Plavix) 75 mg PO DAILY [facility] Enoxaparin Sodium (Lovenox) 40 mg SUBCUT Q24H [facility] Furosemide (Lasix) 40 mg PO DAILY [facility] Last Admin: 03/11/20 09:29 Dose: 40 mg Documented by: Gabapentin (Neurontin) 300 mg PO TID [facility] Last Admin: 03/11/20 16:15 Dose: 300 mg Documented by: Sodium Chloride (Sodium Chloride 0.9%) 1,000 mls @ 50 mls/hr IV .Q20H ONE Stop: 03/12/20 01:59 Last Admin: 03/11/20 06:03 Dose: 50 mls/hr Documented by: Levothyroxine Sodium (Synthroid) 125 mcg PO DAILY [facility] Last Admin: 03/11/20 09:28 Dose: 125 mcg Documented by: Magnesium Hydroxide (Milk Of Magnesia) 30 ml PO DAILY PRN PRN Reason: CONSTIPATION Metoclopramide HCl (Reglan) 10 mg IVP Q8H PRN PRN Reason: NAUSEA AND VOMITING Last Admin: 03/11/20 03:20 Dose: 10 mg Documented by: Metoprolol Tartrate (Lopressor) 25 mg PO BID [facility] Last Admin: 03/11/20 09:28 Dose: 25 mg Documented by: Morphine Sulfate (Morphine) 2 mg IVP Q6H PRN PRN Reason: SEVERE PAIN Last Admin: 03/10/20 15:55 Dose: 2 mg Documented by: Naloxone HCl (Narcan) 0.1 mg IVP Q2M PRN PRN Reason: RESPIRATORY RATE < 8/MIN Nitroglycerin (Nitrostat) 0.4 mg SUBLINGUAL Q5M PRN PRN Reason: CHEST PAIN Ondansetron HCl (Zofran) 4 mg IVP Q4H PRN PRN Reason: vomiting, or N/V if npo Last Admin: 03/11/20 00:08 Dose: 4 mg Documented by: Pantoprazole Sodium (Protonix) 40 mg PO DAILY [facility] Last Admin: 03/11/20 09:28 Dose: 40 mg Documented by: Temazepam (Restoril) 15 mg PO BEDTIME PRN PRN Reason: INSOMNIA Tizanidine HCl (Zanaflex) 4 mg PO Q6H PRN PRN Reason: Muscle Spasm Tramadol HCl (Ultram) 50 mg PO BID PRN PRN Reason: Pain Trazodone HCl (Desyrel) 50 mg PO BEDTIME PRN PRN Reason: Sleep Last Admin: 03/10/20 19:39 Dose: 50 mg Documented by: Vitals/I&O/Wt Last Vital Signs Temp 98.3 F 03/12/20 20:00 Pulse 88 03/12/20 20:00 Resp 15 03/12/20 20:00 BP 79/63 03/12/20 20:00 Pulse Ox 96 03/12/20 20:00 03/12/20 03/12/20 03/12/20 06:59 14:59 22:59 Intake Total 740 / 740 240 / 980 Output Total 1625 / 1625 300 / 1925 Balance -885 / -885 -60 / -945 Physical Exam Const: COMMON NORMALS: no acute distress, average body habitus, patient oriented x3, no limitations, healthy appearing, alert and well nourished HENMT: COMMON NORMALS: normocephalic and atraumatic HEAD & SCALP: normocephalic and atraumatic Eye: COMMON NORMALS: Equal, round and reactive pupils present, EOMs intact bilaterally, conjunctivae normal and no scleral icterus CONJUNCTIVA: Yes conjunctivae normal PUPIL: Yes Equal, round and reactive pupils present Neck/C-Spine: COMMON NORMALS: no JVD Resp: COMMON NORMALS: normal respiratory effort, No retractions, No use of accessory muscles, clear to auscultation bilaterally and percussion normal AUSCULTATION: clear to auscultation bilaterally, crackles and rales PERCUSSION: percussion normal Cardio: COMMON NORMALS: no JVD, regular rate, regular rhythm, S1 normal heart sound present, S2 normal heart sound present, No gallops present (Cardio), No clicks present (Cardio), No murmurs present (Cardio), No rub (Cardio) and Peripheral pulses 2+ throughout RATE: regular rate RHYTHM: regular rhythm HEART SOUNDS: S1 normal heart sound present and S2 normal heart sound present PERIPHERAL PULSES: Peripheral pulses 2+ throughout GI: COMMON NORMALS: Normal to inspection, nondistended, normoactive bowel sounds present, Soft to palpation, non-tender, No hepatosplenomegaly present, no masses and no bruits PALPATION: Yes Soft to palpation and Yes No hepatosplenomegaly present Extremity: COMMON NORMALS: normal to inspection, full ROM, capillary refill normal, no joint enlargement, no clubbing, cyanosis or edema, no calf tenderness and no pedal edema Neuro: COMMON NORMALS: patient oriented x3, CN's II-XII intact bilaterally, moves all extremities, no focal motor deficits, no sensory deficits noted, deep tendon reflexes 2+ bilaterally and gait normal SENSORIUM/ORIENTATION: Yes alert Psych: COMMON NORMALS: mental status grossly normal, Normal thought process present, cooperative, normal affect, speech normal, activity/motor behavior normal, denies hallucinations, denies homicidal ideation and denies suicidal ideation SPEECH: Yes normal speech THOUGHT PROCESS: Normal thought process present Skin: COMMON NORMALS: no rashes or lesions noted, no wounds, turgor normal, no jaundice, no petechiae and no mottling GENERAL SKIN EXAM: no rashes or lesions noted and turgor normal Data : 03/12/20 03:28 03/12/20 03:28 A&P Assessment and plan (1) NSTEMI (non-ST elevated myocardial infarction): Status: Acute (2) CHF (congestive heart failure): Status: Acute Qualifiers: Heart failure type: unspecified Heart failure chronicity: acute on chronic Qualified Code(s): I50.9 - Heart failure, unspecified (3) Hyperlipidemia: Status: Acute Qualifiers: Hyperlipidemia type: unspecified Qualified Code(s): E78.5 - Hyperlipidemia, unspecified (4) ASHD (arteriosclerotic heart disease): Status: Acute (5) EDNA (obstructive sleep apnea): Status: Acute (6) HTN (hypertension): Status: Acute Qualifiers: Hypertension type: essential hypertension Qualified Code(s): I10 - Essential (primary) hypertension (7) Orthostatic hypotension: Status: Acute Additional A&P Information Admit to CSU #NSTEMI Rising troponins, ongoing chest pain Patient is status post left heart catheterization this morning with stent placement to the LAD. Doing well postprocedure, asymptomatic, however overnigth was noted to have A fib with RVR with HR 130s. This morning noted to have BP 90 systolic with orthostatsic drop following which beta blockers and lasix have been placed on hold. Continue aspirin + plavix. Per cardiology, also add Eliquis upin discharge Hold metoprolol 25 mg p.o. twice daily. Continue Statins #CHF, hold lasix 40mg po qd #Hyperlipidemia: continue statins # HTN: Currently orthostatic hypotension today, received IL IVF bolus with imrpovement. Patient asymptomatic. 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
[2020-03-12] MEDS: gabapentin 300 mg Capsule PO ×3 (08:18→21:04)
[2020-03-12] MEDS: aspirin 81 mg EC Tablet PO (08:18)
[2020-03-12] MEDS: metoprolol tartrate 25 mg Tablet PO (08:18)
[2020-03-12] MEDS: pantoprazole DR 40 mg Tablet PO (08:18)
[2020-03-12] MEDS: clopidogrel 75 mg Tablet PO (08:18)
[2020-03-12] MEDS: FUROsemide 40 mg Tablet PO (08:19)
[2020-03-12] MEDS: levothyroxine 125 mcg Tablet PO (08:19)
--- NOTE | 2020-03-12 10:04 | PM.PN ---
Subjective Subjective: Interval history: Patient underwent PCI of RCA yesterday. Patient has been doing well. Overnight she went into atrial fibrillation for about 15 minutes. She says on and off she has been getting tachycardic at home also. Her radial access site is normal. Vitals/I&O/Wt Last Vital Signs Temp 98.0 F 03/12/20 07:38 Pulse 94 03/12/20 07:38 Resp 16 03/12/20 07:38 BP 90/50 03/12/20 07:41 Pulse Ox 95 03/12/20 07:38 03/11/20 03/12/20 03/12/20 22:59 06:59 14:59 Intake Total 480 / 960 240 / 240 Output Total 600 / 1400 500 / 500 Balance -120 / -440 -260 / -260 Physical Exam Narrative: EXAM NARRATIVE: GENERAL: Patient is alert, awake and oriented x3. [] NECK: No jugular vein distension. [] HEENT: No cyanosis. No icterus. No pallor. [] HEART: Regular S1 and S2. No murmur, rub or gallop. [] LUNGS: Clear to auscultate bilaterally. [] ABDOMEN: Soft, nontender and nondistended. Positive bowel sounds. No guarding, rebound or tenderness. [] CENTRAL NERVOUS SYSTEM: Grossly nonfocal. [] EXTREMITIES: Lower extremities with no significant edema bilaterally. Pulses palpable in the lower extremities, both dorsalis pedis and posterior tibial. [] Data : 03/12/20 03:28 03/12/20 03:28 A&P Assessment and plan (1) NSTEMI (non-ST elevated myocardial infarction): Status: Acute (2) ASHD (arteriosclerotic heart disease): Status: Acute (3) CHF (congestive heart failure): Status: Acute Qualifiers: Heart failure type: unspecified Heart failure chronicity: acute on chronic Qualified Code(s): I50.9 - Heart failure, unspecified (4) Hyperlipidemia: Status: Acute Qualifiers: Hyperlipidemia type: unspecified Qualified Code(s): E78.5 - Hyperlipidemia, unspecified (5) EDNA (obstructive sleep apnea): Status: Acute (6) Obesity: Status: Acute Qualifiers: Obesity classification: adult class 2 (BMI 35 - 39.9) (7) Atrial fibrillation: Status: Acute Patient is status post PCI with drug-eluting stent x1 in the RCA. Continue aspirin and Plavix. Given her atrial fibrillation episode and chads vasc score of 3, will recommend initiation of anticoagulation. She can be put on Eliquis 5 mg twice daily. After 1 week of triple therapy, aspirin can be stopped and patient can be continued on Eliquis and Plavix. Will recommend event monitor to monitor burden of atrial fibrillation and decision of continuation of anticoagulation. Continue statin therapy. Patient is stable to be discharged from cardiology standpoint patient follow-up. Additional A&P Information Chronic active smoker : counselled on smoking cessation; she swears she is not going to smoke again. hypokalemia: Replaced GERD Hypothyroidism Thank you for allowing me to participate in patient's care. Please feel free to call with questions or concerns. Attestations Medical Necessity Statement*: Care expected to cross 2 midnights. Patient had NSTEMI. 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
--- NOTE | 2020-03-12 12:44 | PC.NURSE ---
NURSES AID PERFORMED ORTHOSTATIC BLOOD PRESSURES. PATIENT WAS NOTED TO BE POSITIVE. (PLEASE SEE NOTE FROM VARGHESE BEE). DR. ANAYA NOTIFIED. ORDERED 500ML NS BOLUS.
[2020-03-12] MEDS: sodium chloride 0.9% 500 ML IV (12:58)
--- NOTE | 2020-03-12 12:59 | PC.NURSE ---
walked pt from bed to wall across hallway pt stated that she was out of breath check o2 it was 97 room air heart rate was 120 walked pt back to bed and checked 02 it was 95 checked blood pressure it was 87/63 heart rate was 104.nurse Deepa Walker was notified.I did orthostatics on her lieing was b/p 80/53 pulse 96 02 92.siting was b/p 66/47 pulse 105 02 92. retook it while pt was siting and b/p 78/59.standing b/p 52/39 pulse 110 02 95 pt got margo dizzy and light headed had her to sit on side of bed retook her b/p it was 78/61 02 95
[2020-03-12] MEDS: sodium chloride 0.9% 500 ML 999 ML IV (15:12)
[2020-03-12] MEDS: enoxaparin 40 mg/0.4 mL Syringe SUBCUT (15:12)
--- NOTE | 2020-03-12 20:00 | PC.NURSE ---
Rounding: Patient resting in bed alert and oriented. Patient denies any pain or dizziness. Will continue to monitor.
[2020-03-12] MEDS: atorvastatin 40 mg Tablet PO (21:04)
[2020-03-13] VITALS (7 sets, daily range): BP systolic 87–104; BP diastolic 50–74; PULSE 81–102; RESP 13–20; TEMP 36.6–36.8; O2SAT 88–95
[2020-03-13 06:17] LABS: Basophils % 0.4 %; Eosinophils # 0.2 10^3/uL (0.0-0.8); Eosinophils % 2.2 %; Hematocrit 41.5 % (37.0-47.0); Hemoglobin 12.4 g/dL (11.5-15.3); Lymphocytes # 3.4 10^3/uL (0.8-4.8); Lymphocytes % 40.4 %; Mean Corpuscular HGB Conc 29.9 g/dL (30.0-36.0); Mean Corpuscular Hemoglobin 28.2 pg (28.0-34.0); Mean Corpuscular Volume 94.5 fL (81-99); Mean Platelet Volume 10.6 fL (7.4-10.4); Monocytes # 0.6 10^3/uL (0.2-0.9); Monocytes % 7.6 %; Neutrophils % 48.9 %; Nucleated Red Blood Cells % 0 %; Platelet Count 260 10^3/cmm (130-400); Red Blood Count 4.39 10^6/uL (4.1-5.3); Red Cell Distribution Width 17.5 % (12.1-15.1); White Blood Count 8.4 10^3/uL (4.0-10.0)
[2020-03-13 06:35] LABS: Alanine Aminotransferase 13 U/L (0-33); Albumin Level 3.2 g/dL (3.5-5.2); Alkaline Phosphatase 68 IU/L (35-105); Anion Gap 14.7 (5-19); Aspartate Amino Transferase 27 U/L (0-32); Blood Urea Nitrogen 20 mg/dL (8-23); Calcium 8.3 mg/dL (8.5-10.5); Carbon Dioxide 28 mmol/L (22-29); Chloride 103 mmol/L (98-107); Globulin 3.3 g/dL (1.3-4.6); Glomerular Filtration Rate 55.8 mL/min (90-130); Glucose 97 mg/dL (65-115); Osmolality Calculated 297 mOsm/kg (285-295); Potassium 3.7 mmol/L (3.5-5.1); Sodium 142 mmol/L (136-145); Total Bilirubin 0.5 mg/dL (0.15-1.2); Total Protein 6.5 g/dL (6.6-8.7)
[2020-03-13] MEDS: levothyroxine 125 mcg Tablet PO (08:34)
[2020-03-13] MEDS: clopidogrel 75 mg Tablet PO (08:34)
[2020-03-13] MEDS: gabapentin 300 mg Capsule PO ×2 (08:34→15:43)
[2020-03-13] MEDS: pantoprazole DR 40 mg Tablet PO (08:34)
[2020-03-13] MEDS: aspirin 81 mg EC Tablet PO (08:34)
--- NOTE | 2020-03-13 08:50 | PC.NURSE ---
ORTHOSTATIC BLOOD PRESSURES LYING 99/60 SITTING 80/56 STANDING 83/53 ALL PERFORMED WITH AUTOMATIC NIBP
--- NOTE | 2020-03-13 09:48 | USCV_ITS ---
Peri Cid Age: 64 Gender: F : 1955 Exam Date: 03/13/2020 10:46 Ordering Phys: Dina Garcia MD Technologist: Verónica Aldana Exam Location: [facility] [place] Indication: Orthostatic hypotension BP: 90 / 53 HR: 92 Rhythm: Sinus Technical Quality: Fair MEASUREMENTS (Male / Female) Normal Values 2D ECHO LV Diastolic Diameter PLAX 3.5 cm 4.2 - 5.9 / 3.9 - 5.3 cm LV Systolic Diameter PLAX 2.9 cm LV Chamber Size 3.8 cm IVS Diastolic Thickness 2.0 cm 0.6 - 1.0 / 0.6 - 0.9 cm IVS Systolic Thickness 1.8 cm LVPW Diastolic Thickness 0.9 cm 0.6 - 1.0 / 0.6 - 0.9 cm LVPW Systolic Thickness 1.3 cm RV Chamber Size 2.3 cm LV Ejection Fraction 2D Teich 40.0 % LA Width 2.8 cm LA Height 5.2 cm RA Width 2.2 cm RA Height 3.8 cm M-MODE LV Diastolic Diameter MM 4.3 cm 4.2 - 5.9 / 3.9 - 5.3 cm LV Systolic Diameter MM 2.8 cm LV Ejection Fraction MM Teich 64.1 % IVS Diastolic Thickness MM 1.6 cm 0.6 - 1.0 / 0.6 - 0.9 cm IVS Systolic Thickness MM 1.4 cm LVPW Diastolic Thickness MM 1.2 cm 0.6 - 1.0 / 0.6 - 0.9 cm LVPW Systolic Thickness MM 1.6 cm FINDINGS Left Ventricle Normal left ventricular size, systolic function and wall thickness, with no regional wall motion abnormalities. LVEF is 55 to 60%. Normal left ventricular wall thickness. Right Ventricle The right ventricle is normal in size and function. Right Atrium The right atrium is normal in size. Left Atrium The left atrium is normal in size. Mitral Valve Structurally normal mitral valve without significant stenosis or prolapse. There is no mitral regurgitation. Aortic Valve Structurally normal aortic valve without significant sclerosis or stenosis. There is no aortic regurgitation. Tricuspid Valve Structurally normal tricuspid valve without significant stenosis or regurgitation. Pulmonic Valve Structurally normal pulmonic valve without significant stenosis. There is no pulmonic regurgitation. Pericardium Normal pericardium without effusion. Aorta Normal ascending aorta dimension. CONCLUSIONS LV systolic function is normal with EF of 55 to 60%. No valvular heart disease noted. Compared to prior echo from 03/11/2020, there is no significant change noted. Gaston Yuan MD (Electronically Signed) Final Date: 13 March 2020 12:06 S
--- NOTE | 2020-03-13 09:49 | P.PN_ITS ---
Subjective Subjective: Interval history: Patient has been doing well. Denies complaints of chest pain or palpitations. Has noted some shortness of breath on exertion. She has orthostatic hypotension and that is the reason she stayed in the hospital yesterday. Per patient, her blood pressure runs low at home. She is asymptomatic with the hypotension. Her metoprolol and lasix doses were held yest erday. Vitals/I&O/Wt Last Vital Signs Temp 97.8 F 03/13/20 07:21 Pulse 81 03/13/20 07:21 Resp 13 03/13/20 07:21 BP 90/50 03/13/20 07:23 Pulse Ox 95 03/13/20 07:21 03/12/20 03/13/20 03/13/20 22:59 06:59 14:59 Intake Total 360 / 1100 100 / 1200 120 / 120 Output Total 300 / 1925 200 / 200 Balance 60 / -825 100 / -725 -80 / -80 Physical Exam Narrative: EXAM NARRATIVE: GENERAL: Patient is alert, awake and oriented x3. [] NECK: No jugular vein distension. [] HEENT: No cyanosis. No icterus. No pallor. [] HEART: Regular S1 and S2. No murmur, rub or gallop. [] LUNGS: Clear to auscultate bilaterally. [] ABDOMEN: Soft, nontender and nondistended. Positive bowel sounds. No guarding, rebound or tenderness. [] CENTRAL NERVOUS SYSTEM: Grossly nonfocal. [] EXTREMITIES: Lower extremities with no significant edema bilaterally. Pulses palpable in the lower extremities, both dorsalis pedis and posterior tibial. 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 Continue aspirin, plavix and eliquis for 1 week and then switch to plavix and eliquis only. Will recommend event monitor to monitor burden of atrial fibrillation and decision of continuation of anticoagulation as outpatient as afib was transient during the current visit and she does not have known history of it. Continue statin therapy. Repeat echo today did not show any significant changes from before. EF is normal and no valvular heart disease noted. Patient is stable to be discharged from cardiology standpoint patient follow-up. Decrease the dose of metoprolol to 12.5 mg BID and hold lasix for 1-2 days given orthostatic hypotension Outpatient cardiology follow up Additional A&P Information Chronic active smoker : counselled on smoking cessation; she swears she is not going to smoke again. hypokalemia: Replaced GERD Hypothyroidism Thank you for allowing me to participate in patient's care. Please feel free to call with questions or concerns. 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
--- NOTE | 2020-03-13 10:04 | PC.SOCIAL ---
Pg 2 IMM Explained to pt Pg 2 IMM. Pt verbally understands. No questions voiced. Provided pt a copy. Signed, dated, & timed a copy & placed in chart.
--- NOTE | 2020-03-13 14:21 | PM.DCS ---
Discharge Providers Date of Admission: 03/10/20 13:27 Date of Discharge: March 13, 2020 Attending Provider at Admission: Dina Garcia MD Attending Provider at Discharge: Dina Garcia MD Primary Care Provider: Vladimir Danielson Diagnoses at Discharge Discharge Diagnosis (1) NSTEMI (non-ST elevated myocardial infarction): Status: Acute (2) CHF (congestive heart failure): Status: Acute Qualifiers: Heart failure type: unspecified Heart failure chronicity: acute on chronic Qualified Code(s): I50.9 - Heart failure, unspecified (3) Hyperlipidemia: Status: Acute Qualifiers: Hyperlipidemia type: unspecified Qualified Code(s): E78.5 - Hyperlipidemia, unspecified (4) ASHD (arteriosclerotic heart disease): Status: Acute (5) EDNA (obstructive sleep apnea): Status: Acute (6) HTN (hypertension): Status: Acute Qualifiers: Hypertension type: essential hypertension Qualified Code(s): I10 - Essential (primary) hypertension (7) Orthostatic hypotension: Status: Acute Reason for Visit Reason for Visit: CHEST PAIN Hospital Course Discharge Summary: Peri Cid is a 64 year old female has a history of coronary disease, chronic shortness of breath, history of myocardial infarction with intervention, left ventricular dysfunction with history of systolic heart failure, morbid obesity status post bariatric surgery, hypertension, tobacco abuse, diabetes, sleep apnea, chronic kidney disease, dyslipidemia, diabetic neuropathy, chronic cystitis and nephrolithiasis. He presents to the hospital with chief complaint of chest pain that started on the morning of March 10 while she was working in the kitchen. Upon presentation to the ER she underwent serial troponins and the 2-hour and 6-hour delta's were significantly elevated consistent with a non-STEMI. She underwent PCI of RCA on 03/11 with placement of a drug-eluting stent in the RCA. Postprocedure course was notable for an episode of atrial fibrillation. Given Mann Vascor of 3, per cardiology recommendation Eliquis 5 mg twice daily has been initiated. Plan is to do 1 week of triple therapy with aspirin Plavix and Eliquis after which aspirin will be stopped and patient will be continued on Eliquis and Plavix. There have been no further episodes of rapid A. fib. Yesterday her course was also notable for development of orthostatic hypotension, wearing her blood pressure fell to systolic 50 on standing up. She reported some dizziness at the time. Repeat echocardiogram was performed to evaluate for any acute valvular dysfunction or tamponade and was negative for either of these possibility. Metoprolol and Lasix were held and patient's blood pressure is doing better today. Her systolic blood pressure is ranging between 90 to 104 mmHg. Patient states this is close to her baseline. She is no longer symptomatic with regards to dizziness or presyncope. During the course of admission she was noted to have a new oxygen requirement, likely secondary to CHF. She underwent a home oxygen evaluation prior to discharge. 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 request for service Routin e Exams 03/11/20 07:00 Taken US/CV paperwork R outine Ultrasound 03/11/20 Taken Labs from last 24 hours 03/13/20 03/13/20 05:44 05:44 WBC 8.4 RBC 4.39 Hgb 12.4 Hct 41.5 MCV 94.5 MCH 28.2 MCHC 29.9 L RDW 17.5 H Plt Count 260 MPV 10.6 H Neut % (Auto) 48.9 Lymph % (Auto) 40.4 Logan % (Auto) 7.6 Eos % (Auto) 2.2 Baso % (Auto) 0.4 Neut # (Auto) 4.10 Lymph # (Auto) 3.4 Logan # (Auto) 0.6 Eos # (Auto) 0.2 Baso # (Auto) 0.0 Nucleated RBC % (a uto) 0 Nucleated RBCs # 0.0 Sodium 142 Potassium 3.7 Chloride 103 Carbon Dioxide 28 Anion Gap 14.7 BUN 20 Creatinine 1.0 H GFR Calculation 55.8 L Glucose 97 Calculated Osmolal ity 297 H Calcium 8.3 L Total Bilirubin 0.5 AST 27 ALT 13 Alkaline Phosphata se 68 Total Protein 6.5 L Albumin 3.2 L Globulin 3.3 Vitals: Last Vital Signs Temp 98.0 F 03/13/20 11:06 Pulse 93 03/13/20 11:06 Resp 20 H 03/13/20 11:06 BP 104/74 03/13/20 14:00 Pulse Ox 91 03/13/20 11:06 Discharge Plan Discharge Patient Disposition: Home Condition: Stable Prescriptions: New Eliquis 5 mg tablet 5 mg PO BID 30 Days Qty: 60 RF: 0 clopidogrel 75 mg Tablet 75 mg PO DAILY 30 Days Qty: 30 RF: 0 aspirin 81 mg Tablet,Delayed Release (Dr/Ec) 81 mg PO DAILY 7 Days Qty: 7 RF: 0 Continued rosuvastatin 10 mg tablet 10 mg PO BEDTIME RF: 0 nitroglycerin [Nitrostat] 0.4 mg tablet, sublingual 0.4 mg SUBLINGUAL Q5M PRN (Reason: Chest Pain) RF: 0 amitriptyline 50 mg tablet 50 mg PO BEDTIME RF: 0 tizanidine [Zanaflex] 4 mg capsule 4 mg PO Q6H PRN (Reason: Muscle Spasm) RF: 0 fluticasone propionate [Flonase Allergy Relief] 50 mcg/actuation spray,suspension 2 spray INTRANASAL DAILY PRN (Reason: Allergy Symptoms) RF: 0 tramadol 50 mg tablet 50 mg PO BID PRN (Reason: Pain) RF: 0 gabapentin 300 mg capsule 300 mg PO TID RF: 0 esomeprazole magnesium [Nexium] 20 mg capsule,delayed release(DR/EC) 40 mg PO DAILY RF: 0 methenamine hippurate 1 gram tablet 1 g PO BID Qty: 60 RF: 12 Multiple Vitamins Tablet 1 tab PO DAILY RF: 0 Arthritis Pain Reliever 650 mg Tablet Extended Release 650 mg PO PRN RF: 0 trazodone 50 mg Tablet 50 mg PO BEDTIME PRN (Reason: Sleep) RF: 0 ascorbic acid (vitamin C) [Vitamin C] 500 mg Tablet 500 - 1,000 mg PO BID RF: 0 levothyroxine 125 mcg Tablet 125 mcg PO DAILY RF: 0 [id number]-ast [krill oil] 1,615-519-85-80 mg Capsule 1 cap PO DAILY RF: 0 Changed metoprolol tartrate 25 mg tablet 12.5 mg PO BID Qty: 0 RF: 0 Held furosemide 40 mg tablet 40 mg PO DAILY RF: 0 Hold Instructions: Resume on 03/15/20. Discontinued aspirin [Aspir-81] 81 mg tablet,delayed release (DR/EC) 81 mg PO DAILY RF: 0 Discharge Orders: Discharge Order (Routine); Ordered 03/13/20 Ordered By: Dina Garcia Referrals: Venus Teran MD [Physician] - 1 week Discharge Diet: Cardiac Discharge Activity: Resume usual activity Activity Restrictions/Additional Instructions: Continue aspirin and Plavix amd eliquis 5mg BID for one week. After 1 week of triple therapy, aspirin can be stopped and continue on Eliquis and Plavix only Discharge Attestations Time Spent in Discharge Care*: greater than 30 min Quality Metrics Clinical Quality Measures During this hospital stay, did patient experience: AMI Clinical Trial Participant: No Contraindication to aspirin (AMI): Aspirin given Contraindication to statin: Statin prescribed Contraindication to PCI: PCI performed Coding Level of Care Code Acute [facility] Diagnoses NSTEMI (non-ST elevated myocardial infarction) I21.4 CHF (congestive heart failure) I50.9 Heart failure type: unspecified Heart failure chronicity: acute on chronic Hyperlipidemia E78.5 Hyperlipidemia type: unspecified ASHD (arteriosclerotic heart disease) I25.10 EDNA (obstructive sleep apnea) G47.33 HTN (hypertension) I10 Hypertension type: essential hypertension Orthostatic hypotension I95.1
--- NOTE | 2020-03-14 07:36 | PC.RESP ---
Smoking Cessation and Pulmonary Rehab information sent to patient.
== END 2020-03-13 18:19 | disposition home or self-care (01) | DRG 246 ==
LOC: ER 13:37 → CSU 14:41
PROVIDERS: Emergency Medicine; Internal Medicine Cardiovascular Disease; Admitting Provider Student in an Organized Health Care Education/Training Program; PCP Physician Assistant Medical; Visit Provider Student in an Organized Health Care Education/Training Program
PROC: 027034Z Dilation of Coronary Artery, One Artery with Drug-eluting Intraluminal Device, Percutaneous Approach (ICD-10-PCS; principal; 2020-03-11 07:00)
PROC: 027034Z Dilation of Coronary Artery, One Artery with Drug-eluting Intraluminal Device, Percutaneous Approach (ICD-10-PCS; 2020-03-11 07:00)
DX: I21.4 Non-ST elevation (NSTEMI) myocardial infarction (principal); I50.23 Acute on chronic systolic (congestive) heart failure; I13.0 Hypertensive heart and chronic kidney disease with heart failure and stage 1 through stage 4 chronic kidney disease, or unspecified chronic kidney disease; I25.10 Atherosclerotic heart disease of native coronary artery without angina pectoris; Z95.5 Presence of coronary angioplasty implant and graft; I25.2 Old myocardial infarction; E66.01 Morbid (severe) obesity due to excess calories; Z68.37 Body mass index [BMI] 37.0-37.9, adult; Z98.84 Bariatric surgery status; E11.22 Type 2 diabetes mellitus with diabetic chronic kidney disease; N18.9 Chronic kidney disease, unspecified; E11.42 Type 2 diabetes mellitus with diabetic polyneuropathy; F17.210 Nicotine dependence, cigarettes, uncomplicated; E78.5 Hyperlipidemia, unspecified; Z87.01 Personal history of pneumonia (recurrent); J44.9 Chronic obstructive pulmonary disease, unspecified; G47.33 Obstructive sleep apnea (adult) (pediatric); Z87.440 Personal history of urinary (tract) infections; Z87.442 Personal history of urinary calculi; E87.6 Hypokalemia; E03.9 Hypothyroidism, unspecified; I95.9 Hypotension, unspecified; I48.91 Unspecified atrial fibrillation; Z79.82 Long term (current) use of aspirin; Z79.02 Long term (current) use of antithrombotics/antiplatelets; Z79.01 Long term (current) use of anticoagulants; N30.20 Other chronic cystitis without hematuria
CPT/HCPCS: 12345; 36415; 36416; 71045; 80053; 82962; 83036; 83690; 83880; 84484; 85025; 85610; 87426; 93005; 93308; 93452; 96372; 96375; 99283; C1725; C1769; C1874; C1887; C1894; C8929; C9600; J1644; J1650; J1940; J2250; J2270; J2405; J2765; J3010; J3480; J3490; J7030; J7040; Q0163; Q9956; Q9967

== ENCOUNTER → 2020-03-18 09:39 | Outpatient (BNVA) | payer MEDICARE, MEDICAID, SELFPAY | PROVIDERS: PCP Physician Assistant Medical; Visit Provider Nurse Practitioner Family | DX: I25.10 Atherosclerotic heart disease of native coronary artery without angina pectoris (principal) | CPT/HCPCS: 80048 ==

== ENCOUNTER → 2020-05-31 14:12 | Outpatient (BNVA) | payer MEDICARE, MEDICAID, SELFPAY | PROVIDERS: PCP Physician Assistant Medical; Visit Provider Urology | DX: N39.0 Urinary tract infection, site not specified (principal); N20.9 Urinary calculus, unspecified | CPT/HCPCS: 81003 ==

== ENCOUNTER 2020-11-29 14:13 | Outpatient (CLI) | payer MEDICARE, MEDICAID, SELFPAY ==
--- NOTE | 2020-11-29 14:15 | XRR_ITS ---
PROCEDURE INFORMATION: Exam: XR Abdomen Exam date and time: 11/29/2020 2:31 PM Age: 65 years old Clinical indication: Condition or disease; Kidney or ureter condition; Other: Urinary calculus, unspecified; Additional info: N20.9 - urinary calculus, unspecified TECHNIQUE: Imaging protocol: XR of the abdomen. Views: Frontal supine view of the abdomen. 1 View. COMPARISON: CR XR KUB [id number] 11/25/2019 1:36 PM FINDINGS: Gastrointestinal tract: Normal. No bowel dilation. Organs: There is a faint density in the projection of the right kidney suspicious for a renal stone. Bones/joints: Unremarkable. Other findings: This finding measures 10 mm x 8 mm; No interval changes are seen comparing to prior examination. XR/XR KUB [id number] IMPRESSION: 1. Right upper quadrant density rule out renal stone. 2. Otherwise negative for acute abnormality
== END 2020-11-29 14:14 | disposition home or self-care (01) ==
LOC: RAD 14:19
PROVIDERS: PCP Physician Assistant Medical; Visit Provider Urology
DX: N20.9 Urinary calculus, unspecified (principal)
CPT/HCPCS: 74018; 81003

== ENCOUNTER 2021-02-09 10:30 | Outpatient (CLI) | payer MEDICARE, MEDICAID, SELFPAY ==
--- NOTE | 2021-02-09 10:38 | CT_ITS ---
WS: [id number] CT CHEST TECHNIQUE: Contrast enhanced CT of the chest with coronal and sagittal reformatted images. CLINICAL INFORMATION: LUNG NODULE COMPARISON: None. DLP: 904.[address] scans at [facility] use at least one of these dose optimization techniques: automat ed exposure control; mA and/or kV adjustment per patient size (includes targeted exams where dose is matched to clinical indication); or iterative reconstruction. FINDINGS: Moderate chronic emphysematous changes. No acute pulmonary infiltrates. No focal pneumonia or pleural fluid. Normal caliber thoracic aorta. Coronary calcification. A few prominent anterior mediastinal a nd peribronchial lymph nodes nonspecific but likely reactive. Largest measures approximately 10 mm. Postoperative changes at the GE junction. Mild eccentric soft tissue thickening in the distal esophag us eccentric to the right is nonspecific. This can be further evaluated with endoscopy. This is simil ar in appearance to CT abdomen pelvis 11 . Diffuse fatty infiltration of the liver. Cholelithiasis. Adrenal glands are normal. No axillary lymph adenopathy. Mild thoracic kyphosis. CT/CT chest w con* [id number] IMPRESSION: 1. Moderate chronic emphysematous changes. No acute pulmonary infiltrates. 2. No focal pneumonia or pleural fluid. No suspicious pulmonary parenchymal op acities. 3. A few prominent anterior mediastinal and peribronchial lymph nodes nonspeci fic but likely reactive. Largest measures approximately 10 mm. 4. Coronary calcification. 5. Mild eccentric soft tissue thickening involving the distal esophagus eccent ed to the right. This is similar in appearance to 2018 and is nonspecific. Thi s can be further evaluated with endoscopy. 6. Prior postoperative changes at the GE junction. 7. Large gallstone within the gallbladder measuring 5.2 CM. This can be furthe r evaluated with ultrasound.
[2021-02-09] MEDS: iodixanol 320 mg/mL 100mL Btl IV (10:51)
== END 2021-02-09 10:31 | disposition home or self-care (01) ==
PROVIDERS: PCP Physician Assistant Medical; Visit Provider Family Medicine
DX: R91.1 Solitary pulmonary nodule (principal); R93.89 Abnormal findings on diagnostic imaging of other specified body structures; I25.10 Atherosclerotic heart disease of native coronary artery without angina pectoris; K80.80 Other cholelithiasis without obstruction
CPT/HCPCS: 71260; Q9967

== ENCOUNTER 2021-02-09 20:00 | Outpatient (CLI) | payer MEDICARE, MEDICAID, SELFPAY | END 2021-02-09 20:01 | disposition home or self-care (01) | LOC: SLEEP 02-10 08:39 | PROVIDERS: PCP Physician Assistant Medical; Visit Provider Physician Assistant Medical | DX: G47.30 Sleep apnea, unspecified (principal) | CPT/HCPCS: 95810 ==

== ENCOUNTER 2021-03-16 10:34 | Outpatient (CLI) | payer MEDICARE, MEDICAID, SELFPAY ==
--- NOTE | 2021-03-16 10:40 | USCV_ITS ---
Peri Cid Age: 65 Gender: F : 1955 Exam Date: 03/16/2021 11:14 Ordering Phys: Vladimir Danielson PA-C XX Technologist: ROSA Exam Location: [facility] – [place] Indication: ABNORMAL RYTHYM BP: 100 / 70 HR: 88 Rhythm: Other Technical Quality: Adequate MEASUREMENTS (Male / Female) Normal Values 2D ECHO LV Diastolic Diameter PLAX 4.4 cm 4.2 - 5.9 / 3.9 - 5.3 cm LV Systolic Diameter PLAX 3.4 cm IVS Diastolic Thickness 1.4 cm 0.6 - 1.0 / 0.6 - 0.9 cm IVS Systolic Thickness 2.2 cm LVPW Diastolic Thickness 1.6 cm 0.6 - 1.0 / 0.6 - 0.9 cm LVPW Systolic Thickness 1.8 cm LVOT Diameter 2.0 cm LV Ejection Fraction 2D Teich 45.0 % LV Ejection Fraction MOD 2C 59.1 % LV Ejection Fraction 2C AL 59.2 % LA Diameter 3.3 cm LA Width 2.4 cm LA Height 3.9 cm RA Width 2.4 cm RA Height 3.0 cm Aorta at Sinotubular Diameter 2.8 cm DOPPLER AV Peak Velocity 118.0 cm/s LVOT Peak Velocity 72.0 cm/s AV Area Cont Eq vti 2.4 cm squared AV Area Cont Eq pk 1.9 cm squared MV Peak Velocity 137.0 cm/s MV Area PHT 4.5 cm squared Mitral E to A Ratio 0.8 MV E' Velocity 52.0 cm/s Mitral E to MV E' Ratio 11.3 Mitral E to LV E' Lateral Ratio 8.5 Mitral E to LV E' Septal Ratio 17.0 TR Peak Velocity 284.2 cm/s TR Peak Gradient 32.3 mmHg TR Mean Velocity 211.4 cm/s TR Mean Gradient 20.0 mmHg TR Velocity Time Integral 70.5 cm TV Peak E Velocity 76.0 cm/s Right Atrial Pressure 3.0 mmHg Pulmonary Artery Systolic Pressu 35.3 mmHg PV Peak Velocity 116.0 cm/s RV Acceleration Time 0.0 s RV Ejection Time 0.3 s RV AcT/ET 0.1 FINDINGS Left Ventricle Normal left ventricular size, systolic function and wall thickness, with no regional wall motion abnormalities. Left ventricular ejection fraction is estimated at 60 %. Grade II diastolic dysfunction, moderately elevated filling pressures. Right Ventricle Normal right ventricular size and systolic function. RVSP could not be calculated due to incomplete tricuspid regurgitation velocity profile. Right Atrium Normal right atrial size. Left Atrium Normal left atrial size. Mitral Valve Mild mitral annular calcification. No mitral valve stenosis. Mild mitral valve regurgitation. Aortic Valve Structurally normal trileaflet aortic valve. No aortic valve stenosis. No aortic valve regurgitation. Tricuspid Valve Structurally normal tricuspid valve. No tricuspid valve stenosis. Trace tricuspid valve regurgitation. Pulmonic Valve Structurally normal pulmonic valve. No pulmonary valve stenosis. Trace pulmonary valve regurgitation. Pericardium No pericardial effusion. Aorta Normal size aortic root and proximal ascending aorta. CONCLUSIONS 1. Normal left ventricular size, systolic function and wall thickness, with no regional wall motion abnormalities. Left ventricular ejection fraction is estimated at 60 %. Grade II diastolic dysfunction, moderately elevated filling pressures. 2. Normal right ventricular size and systolic function. 3. Mild mitral valve regurgitation. 4. No significant change when compared to previous study dated 03/13/2020. Venus Teran MD (Electronically Signed) Final Date: 19 March 2021 10:52 S
== END 2021-03-16 10:35 | disposition home or self-care (01) ==
LOC: RAD 10:38
PROVIDERS: PCP Physician Assistant Medical; Visit Provider Physician Assistant Medical
DX: R09.02 Hypoxemia (principal); I50.9 Heart failure, unspecified; E66.9 Obesity, unspecified; R00.8 Other abnormalities of heart beat; I34.0 Nonrheumatic mitral (valve) insufficiency
CPT/HCPCS: 93306

== ENCOUNTER → 2021-06-06 13:36 | Outpatient (BNVA) | payer MEDICARE, MEDICAID, SELFPAY | PROVIDERS: PCP Family Medicine; Visit Provider Nurse Practitioner Family | DX: N39.0 Urinary tract infection, site not specified (principal); N18.9 Chronic kidney disease, unspecified; N20.9 Urinary calculus, unspecified | CPT/HCPCS: 81003; 87077; 87086; 87184 ==

== ENCOUNTER 2021-10-18 12:47 | Outpatient (CLI) | payer MEDICARE, MEDICAID, SELFPAY ==
--- NOTE | 2021-10-18 13:11 | MM_ITS ---
WS: [id number] BILATERAL 3D TOMOSYNTHESIS DIGITAL SCREENING MAMMOGRAPHY WITH CAD CLINICAL INFORMATION: SCREENING HISTORY: Screening mammogram. No current complaints. COMPARISON: March 26, 2017 TECHNIQUE: Bilateral CC and MLO views. FINDINGS: Scattered fibroglandular densities bilaterally. A few incidental punctate calcifications. Biopsy alaina er LEFT breast is unchanged. No suspicious focal mass, asymmetry, calcifications, or architectural di stortion. No evidence of malignancy. MM/[place] [id number] IMPRESSION: BI-RADS: 2-Benign FOLLOW UP: 1 Year Follow-up Recommend return to annual screening mammography.
== END 2021-10-18 12:48 | disposition home or self-care (01) ==
LOC: RADSHAW 12:49
PROVIDERS: PCP Family Medicine; Visit Provider Physician Assistant Medical
DX: Z12.31 Encounter for screening mammogram for malignant neoplasm of breast (principal)
CPT/HCPCS: 77063; 77067

== ENCOUNTER 2021-10-25 12:32 | Outpatient (CLI) | payer MEDICARE, MEDICAID, SELFPAY ==
--- NOTE | 2021-10-25 12:49 | XR_ITS ---
WS: [id number] SCREENING DEXA SCAN [employer] CLINICAL INFORMATION: OSTEOPOROSIS COMPARISON: None. FINDINGS: The L1-L4 bone mineral density measures 1.214 g/cm2. This corresponds to a T score score of 0.3 and Z score of 0.9. Left femoral neck bone mineral density measures 0.975 g/cm2. This corresponds to a T score of -0.3 an d Z score of 0.3. Right femoral neck bone mineral density measures 0.985 g/cm2. This corresponds to a T score -0.2of an d Z score of 0.3. Mean femoral neck bone mineral density measures 0.980 g/cm2. This corresponds to a T score of -0.2 an d Z score of 0.3. XR/XR DEXA axial skeleton* [id number] IMPRESSION: Normal bone mineralization. Patient's FRAX calculated 10 year probability for major osteoporotic fracture i s 8.3 % and osteoporotic hip fracture is 1.4%.
== END 2021-10-25 12:33 | disposition home or self-care (01) ==
LOC: RAD 12:34
PROVIDERS: PCP Family Medicine; Visit Provider Family Medicine
DX: M81.0 Age-related osteoporosis without current pathological fracture (principal)
CPT/HCPCS: 77080

== ENCOUNTER 2021-12-05 06:00 | Outpatient (CLI) | payer MEDICARE, MEDICAID, SELFPAY | END 2021-12-05 06:01 | disposition home or self-care (01) | LOC: LAB 04-02 20:05 | PROVIDERS: PCP Family Medicine; Visit Provider Urology | DX: N39.0 Urinary tract infection, site not specified | CPT/HCPCS: 81003; 99213 ==

== ENCOUNTER 2021-12-05 13:42 | Outpatient (CLI) | payer MEDICARE, MEDICAID, SELFPAY ==
--- NOTE | 2021-12-05 13:57 | XRR_ITS ---
PROCEDURE INFORMATION: Exam: XR Abdomen Exam date and time: 12/05/2021 1:58 PM Age: 66 years old Clinical indication: Condition or disease; Kidney or ureter condition; Calculus (stone) in kidney; Prior surgery; Surgery type: Bariatric; Additional info: Urolithiasis TECHNIQUE: Imaging protocol: XR of the abdomen. Views: Frontal supine view of the abdomen. 1 View. COMPARISON: CR XR KUB [id number] 11/29/2020 2:29 PM FINDINGS: Gastrointestinal tract: Normal. No bowel dilation. Bones/joints: Unremarkable. XR/XR KUB [id number] IMPRESSION: No acute findings.
== END 2021-12-05 13:43 | disposition home or self-care (01) ==
LOC: RAD 13:47
PROVIDERS: PCP Family Medicine; Visit Provider Urology
DX: N20.9 Urinary calculus, unspecified (principal)
CPT/HCPCS: 74018

== ENCOUNTER 2021-12-05 19:51 | Emergency (ER) | payer MEDICARE, MEDICAID, SELFPAY ==
--- NOTE | 2021-12-05 19:53 | ED_ITS ---
HPI - Syncope General: Chief Complaint: Chest Pain Stated Complaint: HYPOTENSION Time Seen by Provider: 12/05/21 19:53 History of Present Illness: Ms. Cid is a 66-year-old lady with significant past medical history of hypertension, hyperlipidemia, CHF, history of prior HI with multiple stents, CKD, diabetes presenting to the emergency department due to syncope after chest pain. She reports largely being at her baseline health over the past few days. Earlier today, while at rest, she developed chest pressure in the middle of her chest. She took 1 nitro which did not relieve symptoms and subsequently took another nitro which did relieve her chest pain. She subsequently got up to go to the bathroom and woke up on the floor. EMS arrived and found the patient having a blood pressure of 80/40 which improved after small volume IV fluids. Patient denies frequent history of chest pain essentially since her prior heart attack. She reports baseline somewhat poor water intake and chronic diarrhea however this is not changed significantly. Denies other known specific provoking factors. No other specific changes in health, exacerbating, or alleviating factors identified. Patient is on both Plavix and Eliquis and reports compliance with her medication regimen. Onset (ago): minute(s) Prodromal symptoms: lightheaded and chest pain Witnessed: No Context: standing up Associated symptoms: Reports chest pain History: history of CAD Treatments prior to arrival: IV fluids Review of Systems General: Reports: 10 or more systems reviewed and unremarkable except in HPI and below Card: Reports: chest pain [facility] ED PFSH: Medical History ASHD (arteriosclerotic heart disease) CHF (congestive heart failure) CKD (chronic kidney disease) COPD (chronic obstructive pulmonary disease) Coronary artery disease 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, managed as type 2 HTN (hypertension) Hyperlipidemia Myocardial infarction Obesity EDNA (obstructive sleep apnea) Recurrent UTI Renal calculus, left treated with ESWL with resolution S/P extracorporeal shock wave therapy Tobacco abuse Urolithiasis Surgical History H/O bariatric surgery S/P angioplasty with stent Family History Mother , at age 86 CAD (coronary artery disease) Diabetes Myocardial infarction Hypertension Father , AGE 72 Diabetes CAD (coronary artery disease) Cancer LUNG Brother Diabetes CAD (coronary artery disease) Hypertension Sister Diabetes Social History Smoking and tobacco status: current every day smoker cigarettes Alcohol intake: never Adopted: No Caregiver/support person: No Marital status: Legally Current occupational status: retired and disabled History of recent travel: No Current gender identity: Female Physical Exam Const: COMMON NORMALS: alert GENERAL APPEARANCE: cooperative and well developed HENMT: COMMON NORMALS: normocephalic and atraumatic HEAD & SCALP: normocephalic and atraumatic Eye: COMMON NORMALS: conjunctivae normal CONJUNCTIVA: Yes conjunctivae normal SCLERA: sclerae normal Neck/C-Spine: COMMON NORMALS: supple GENERAL: Yes trachea midline Resp: COMMON NORMALS: normal respiratory effort EFFORT & INSPECTION: Yes able to speak in complete sentences Cardio: COMMON NORMALS: regular rate and regular rhythm RATE: regular rate RHYTHM: regular rhythm GI: COMMON NORMALS: Soft to palpation PALPATION: Yes Soft to palpation and No Tenderness to palpation present (GI) PERCUSSION: normal to percussion Extremity: GENERAL: Yes normal exam except as noted and No edema Neuro: COMMON NORMALS: moves all extremities SENSORIUM/ORIENTATION: Yes alert and No Orientation impaired Psych: COMMON NORMALS: mental status grossly normal and Normal thought process present THOUGHT PROCESS: Normal thought process present Course ED course: - Patient was seen and evaluated by me at bedside - Patient placed on cardiac monitors, IV access obtained - Initial evaluation notable for exam as above, nontoxic - Labs and xrays personally interpreted by me. EKG reviewed showing sinus rhythm with mild nonspecific ST segment abnormalities. No STEMI -Fluids given - Labs notable for mild leukocytosis, normal hemoglobin. Metabolic panel without acute electrolyte derangement. Creatinine mildly elevated. Delta troponin is negative. BNP elevated. Urinalysis pending. - Imaging notable for given syncope with head strike and use of anticoagulation including antiplatelet and Eliquis CT imaging warranted. No evidence of intracranial hemorrhage or acute bony injury related to trauma. No pneumothorax or lobar consolidation identified on chest x-ray. - Upon serial reexamination after treatment the patient was improved. Patient currently chest pain-free. - Based on patient history, evaluation, and testing as interpreted the most likely cause of the patient's condition is chest pain of unclear etiology with likely orthostatic hypotension resulting in syncope which is possibly related to either dehydration intravascularly or nitroglycerin side effect given temporal relationship. - The results of ED evaluation were discussed with the patient including possible disposition options regarding both syncope that is not low risk and not low risk chest pain. I offered admission and discussed that patient is not low risk estimating risk of major adverse cardiac events by heart score. Patient prefers outpatient management. I discussed symptomatic cares (if applicable) including appropriate and responsible use, followup plan, and return precautio ns. The patient verbalized understanding and felt safe for discharge. - Patient discharged in satisfactory condition. Note: Click bubbles or prepopulated bae in note writing are used for assistance with data collection and billing and are inherently more limited than narrative and other text portions of this note. Please use narrative for additional clinical history and defer to narrative/free test for any case of contradictory information. If information appears in only free text or click bubble it should be considered present or absent as reported. Please contact note policy writer sales for clarifications of clinical information or contradictory information. MDM is a brief summary, contradictory or erroneous seeming information should be clarified and full note should be reviewed. Vital Signs: Vital signs: Vital Signs Temperature 98.2 F 12/05/21 19:55 Pulse Rate 79 12/05/21 23:13 Respiratory Rate 18 12/05/21 23:13 Blood Pressure 118/52 12/05/21 23:13 Pulse Oximetry 92 12/05/21 23:13 MDM - Syncope Medical Decision Making 66-year-old lady with known history of CAD presenting with syncope after nitroglycerin use for chest pain. ED evaluation notable for orthostasis which patient's symptoms improved with IV fluids. Delta troponin negative. Offered admission as patient is not low risk by heart score or for syncope however patient prefers outpatient management. Discharged with strict return precautions and planned further outpatient testing. Medical Records I reviewed the patient's medical records. Lab Data I reviewed the patient's lab results. : 12/05/21 20:05 12/05/21 20:05 Radiology Impressions Chest X-Ray 12/05/21 20:04 IMPRESSION: Cardiomegaly, lungs are clear. Cervical Spine CT 12/05/21 20:05 IMPRESSION: No acute findings. Head CT 12/05/21 20:05 IMPRESSION: No acute intracranial abnormality. Laboratory Results WBC 10.7 10^3/uL (4.0-10.0) H 12/05/21 20:05 RBC 3.94 10^6/uL (4.1-5.3) L 12/05/21 20:05 Hgb 12.4 g/dL (11.5-15.3) 12/05/21 20:05 Hct 38.5 % (37.0-47.0) 12/05/21 20:05 MCV 97.7 fl (81-99) 12/05/21 20:05 MCH 31.5 pg (28.0-34.0) 12/05/21 20:05 MCHC 32.2 g/dL (30.0-36.0) 12/05/21 20:05 RDW 15.6 % (12.1-15.1) H 12/05/21 20:05 Plt Count 262 10^3/cmm (130-400) 12/05/21 20:05 MPV 10.8 fL (7.4-10.4) H 12/05/21 20:05 Neut % (Auto) 63.3 % 12/05/21 20:05 Lymph % (Auto) 26.6 % 12/05/21 20:05 [place] % (Auto) 8.3 % 12/05/21 20:05 Eos % (Auto) 1.1 % 12/05/21 20:05 Baso % (Auto) 0.4 % 12/05/21 20:05 Neut # (Auto) 6.75 10^3/uL (1.8-7.7) 12/05/21 20:05 Lymph # (Auto) 2.8 10^3/uL (0.8-4.8) 12/05/21 20:05 [place] # (Auto) 0.9 10^3/uL (0.2-0.9) 12/05/21 20:05 Eos # (Auto) 0.1 10^3/uL (0.0-0.8) 12/05/21 20:05 Baso # (Auto) 0.0 10^3/uL (0.0-0.1) 12/05/21 20:05 Nucleated RBC % (auto) 0 % 12/05/21 20:05 Nucleated RBCs # 0.0 /100WBC 12/05/21 20:05 Sodium 141 mmol/L (136-145) 12/05/21 20:05 Potassium 4.3 mmol/L (3.5-5.1) 12/05/21 20:05 Chloride 105 mmol/L (98-107) 12/05/21 20:05 Carbon Dioxide 22 mmol/L (22-29) 12/05/21 20:05 Anion Gap 18.3 (5-19) 12/05/21 20:05 BUN 18 mg/dL (8-23) 12/05/21 20:05 Creatinine 1.2 mg/dL (0.5-0.9) H 12/05/21 20:05 GFR Calculation 44.9 mL/min (90-130) L 12/05/21 20:05 Glucose 76 mg/dL (65-115) 12/05/21 20:05 Calculated Osmolality 293 mOsm/kg (285-295) 12/05/21 20:05 Calcium 8.6 mg/dL (8.5-10.5) 12/05/21 20:05 Total Bilirubin 0.3 mg/dL (0.15-1.2) 12/05/21 20:05 AST 14 U/L (0-32) 12/05/21 20:05 ALT 9 U/L (0-33) 12/05/21 20:05 Alkaline Phosphatase 85 IU/L (35-105) 12/05/21 20:05 Troponin T Baseline 39 ng/L (0-10) H 12/05/21 20:05 Troponin T 120 Minute 34.99 ng/L (0-10) H 12/05/21 22:18 Delta Troponin T -4.01 ABS# (0-10) L 12/05/21 22:18 NT-Pro-B Natriuret Pep 1191 pg/mL (0-125) H 12/05/21 20:05 Total Protein 6.3 g/dL (6.6-8.7) L 12/05/21 20:05 Albumin 3.7 g/dL (3.5-5.2) 12/05/21 20:05 Globulin 2.6 g/dL (1.3-4.6) 12/05/21 20:05 Lipase 30 U/L (13-60) 12/05/21 20:05 Discharge Plan Discharge Patient Disposition: Home Clinical Impression: Chest pain, Syncope, Orthostatic hypotension Condition: Stable Prescriptions: No Action rosuvastatin 10 mg tablet 10 mg PO BEDTIME 0RF amitriptyline 50 mg tablet 50 mg PO BEDTIME 0RF tizanidine [Zanaflex] 4 mg capsule 4 mg PO Q6H PRN (Reason: Muscle Spasm) 0RF fluticasone propionate [Flonase Allergy Relief] 50 mcg/actuation spray,suspension 2 spray INTRANASAL DAILY PRN (Reason: Allergy Symptoms) 0RF tramadol 50 mg tablet 50 mg PO BID PRN (Reason: Pain) 0RF gabapentin 300 mg capsule 300 mg PO TID 0RF mirtazapine 30 mg tablet 30 mg PO BEDTIME 0RF albuterol sulfate 90 mcg/actuation HFA aerosol inhaler 2 puff inhalation Q6H PRN (Reason: Shortness Of Breath) 0RF lansoprazole 30 mg capsule,delayed release(DR/EC) 30 mg PO DAILY 0RF methenamine hippurate 1 gram tablet 1 g PO DAILY 0RF Dose Instruction: TAKE 1 TABLET BY MOUTH TWICE DAILY ALONG WITH VITAMIN-C furosemide 40 mg tablet 40 mg PO Q48H 0RF nitroglycerin [Nitrostat] 0.4 mg tablet, sublingual 0.4 mg SUBLINGUAL Q5M PRN (Reason: Chest Pain) Qty: 30 6RF metoprolol succinate 25 mg tablet extended release 24 hr 25 mg PO DAILY Qty: 90 3RF clopidogrel 75 mg tablet 75 mg PO DAILY Qty: 90 1RF acetaminophen [Arthritis Pain Reliever] 650 mg Tablet Extended Release 650 mg PO PRN 0RF ascorbic acid (vitamin C) [Vitamin C] 500 mg Tablet 500 mg PO DAILY 0RF Rx Instructions: TAKE WITH METHENAMINE levothyroxine 125 mcg Tablet 125 mcg PO DAILY 0RF qmyjf-oe-[id number]-wvo-fsk-nchpjei-ast [krill oil] 1,197-805-34-80 mg Capsule 1 cap PO DAILY 0RF albuterol sulfate 2.5 mg /3 mL (0.083 %) Solution For Nebulization 2.5 mg INHALATION Q6H PRN (Reason: Shortness Of Breath) 0RF enalapril maleate 2.5 mg Tablet 2.5 mg PO DAILY 0RF Eliquis 5 mg tablet 5 mg PO BID 0RF Discharge Orders: Discharge ED (Routine); Ordered 12/05/21 Ordered By: Kingsley Martinez Referrals: Emily Rivera MD [Primary Care Provider] - Discharge Diet: Usual diet Discharge Activity: Increase activity as tolerated Patient Instructions: Chest Pain (ED), Dehydration (ED), Syncope in Older Adults (ED) Activity Restrictions/Additional Instructions: Thank you for visiting the emergency department. You were seen and evaluated for chest pain and syncope. The exact cause your symptoms is unclear though as discussed the syncope is likely from blood pressure changes related to nitroglyc mic. The chest pain may be caused by your heart and I recommend further evaluation which you are choosing to do in the outpatient setting. I will message case management for assistance with scheduling. Please follow-up with your primary care provider and tennis net maker. Continue your current medication regimen. Please return to the emergency department for worsening symptoms, recurrent chest pain, recurrent syncope, or anything else that you are concerned about a feel needs emergency department evaluation. Coding Level of Care Code ED Instrument Tester for [place] Fwd Exam Comprehensive
[2021-12-05 19:55] VITALS: BP 101/61; PULSE 78; RESP 18; TEMP 36.8; O2SAT 90; BMI 35.5
--- NOTE | 2021-12-05 20:04 | XRR_ITS ---
PROCEDURE INFORMATION: Exam: XR Chest Exam date and time: 12/05/2021 8:15 PM Age: 66 years old Clinical indication: Other: Syncope; Prior surgery; Surgery date: 6+ months; Surgery type: Heart stents; Additional info: Chest pain, syncope TECHNIQUE: Imaging protocol: XR of the chest. Views: 1 view. COMPARISON: CT chest w con* [id number] 02/09/2021 10:49 AM FINDINGS: Lungs: Unremarkable. No consolidation. Pleural spaces: Unremarkable. No pleural effusion. No pneumothorax. Heart/Mediastinum: Cardiomegaly. Bones/joints: Unremarkable. XR/XR chest 1V portable [id number] IMPRESSION: Cardiomegaly, lungs are clear.
--- NOTE | 2021-12-05 20:04 | ECG_ITS ---
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 Measurements Intervals [place] Rate: P: NM: QRS: QRSD: T: QT: QTc: Interpretive Statements Sinus rhythm Possible old inferior myocardial infarction Poor anterior R wave progression WARNING: DATA QUALITY MAY AFFECT INTERPRETATION Compared to ECG 03/12/2020 04:27:49 Atrial fibrillation no longer present Myocardial infarct finding no longer present Electronically Signed On 12-07-2021 19:16:32 CDT by Venus Teran M.D. [id number]
--- NOTE | 2021-12-05 20:05 | CTR_ITS ---
PROCEDURE INFORMATION: Exam: CT Cervical Spine Without Contrast Exam date and time: 12/05/2021 8:27 PM Age: 66 years old Clinical indication: Injury or trauma; Blunt trauma; Injury details: Syncopal episode-- fall TECHNIQUE: Imaging protocol: Computed tomography images of the cervical spine without contrast. Radiation optimization: All CT scans at this facility use at least one of these dose optimization techniques: automated exposure control; mA and/or kV adjustment per patient size (includes targeted exams where dose is matched to clinical indication); or iterative reconstruction. COMPARISON: CT head wo con* [id number] 12/05/2021 8:23 PM RADIATION DOSE METRICS: Total DLP (mGy-cm): 853.57 FINDINGS: Bones/joints: No acute fracture. Normal alignment. C2-C3: No significant disc protrusion. No severe spinal canal stenosis. No significant neural foraminal narrowing. C3-C4: No significant disc protrusion. No severe spinal canal stenosis. No significant neural foraminal narrowing. C4-C5: No significant disc protrusion. No severe spinal canal stenosis. No significant neural foraminal narrowing. C5-C6: No significant disc protrusion. No severe spinal canal stenosis. No significant neural foraminal narrowing. C6-C7: No significant disc protrusion. No severe spinal canal stenosis. No significant neural foraminal narrowing. C7-T1: No significant disc protrusion. No severe spinal canal stenosis. No significant neural foraminal narrowing. Lungs: Lung apices are normal. Soft tissues: Unremarkable. CT/CT cervical spin wo con* [id number] IMPRESSION: No acute findings.
--- NOTE | 2021-12-05 20:05 | CTR_ITS ---
PROCEDURE INFORMATION: Exam: CT Head Without Contrast Exam date and time: 12/05/2021 8:23 PM Age: 66 years old Clinical indication: Injury or trauma; Fall; Blunt trauma (contusions or hematomas); Additional info: Syncope TECHNIQUE: Imaging protocol: Computed tomography of the head without contrast. Radiation optimization: All CT scans at this facility use at least one of these dose optimization techniques: automated exposure control; mA and/or kV adjustment per patient size (includes targeted exams where dose is matched to clinical indication); or iterative reconstruction. COMPARISON: No relevant prior studies available. RADIATION DOSE METRICS: Total DLP (mGy-cm): 847.52 FINDINGS: Brain: Normal. No hemorrhage. Unremarkable white matter. No mass effect. Cerebral ventricles: No ventriculomegaly. Paranasal sinuses: Visualized sinuses are unremarkable. No fluid levels. Mastoid air cells: Visualized mastoid air cells are well aerated. Bones/joints: Unremarkable. No acute fracture. Soft tissues: Unremarkable. CT/CT head wo con* [id number] IMPRESSION: No acute intracranial abnormality.
[2021-12-05 20:12] VITALS: BP 101/61; PULSE 76; RESP 16; O2SAT 93
[2021-12-05 20:19] LABS: Basophils % 0.4 %; Eosinophils # 0.1 10^3/uL (0.0-0.8); Eosinophils % 1.1 %; Hematocrit 38.5 % (37.0-47.0); Hemoglobin 12.4 g/dL (11.5-15.3); Lymphocytes # 2.8 10^3/uL (0.8-4.8); Lymphocytes % 26.6 %; Mean Corpuscular HGB Conc 32.2 g/dL (30.0-36.0); Mean Corpuscular Hemoglobin 31.5 pg (28.0-34.0); Mean Corpuscular Volume 97.7 fl (81-99); Mean Platelet Volume 10.8 fL (7.4-10.4); Monocytes # 0.9 10^3/uL (0.2-0.9); Monocytes % 8.3 %; Neutrophils # 6.75 10^3/uL (1.8-7.7); Neutrophils % 63.3 %; Nucleated Red Blood Cells % 0 %; Platelet Count 262 10^3/cmm (130-400); Red Blood Count 3.94 10^6/uL (4.1-5.3); Red Cell Distribution Width 15.6 % (12.1-15.1); White Blood Count 10.7 10^3/uL (4.0-10.0)
[2021-12-05 20:36] LABS: Troponin(5th) Baseline 39 ng/L (0-10)
[2021-12-05 20:45] LABS: Alanine Aminotransferase 9 U/L (0-33); Albumin Level 3.7 g/dL (3.5-5.2); Alkaline Phosphatase 85 IU/L (35-105); Anion Gap 18.3 (5-19); Aspartate Amino Transferase 14 U/L (0-32); Blood Urea Nitrogen 18 mg/dL (8-23); Calcium 8.6 mg/dL (8.5-10.5); Carbon Dioxide 22 mmol/L (22-29); Chloride 105 mmol/L (98-107); Globulin 2.6 g/dL (1.3-4.6); Glomerular Filtration Rate 44.9 mL/min (90-130); Glucose 76 mg/dL (65-115); Lipase 30 U/L (13-60); NT Pro B Type Natriuretic Pept 1191 pg/mL (0-125); Osmolality Calculated 293 mOsm/kg (285-295); Potassium 4.3 mmol/L (3.5-5.1); Sodium 141 mmol/L (136-145); Total Bilirubin 0.3 mg/dL (0.15-1.2); Total Protein 6.3 g/dL (6.6-8.7)
[2021-12-05 20:55] VITALS: BP 100/60; BP 102/54; BP 80/56; PULSE 76; PULSE 98
--- NOTE | 2021-12-05 22:04 | ECG_ITS ---
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 Measurements Intervals [place] Rate: 75 P: 61 [place]: 169 QRS: -24 QRSD: 109 T: 33 QT: 380 QTc: 426 Interpretive Statements SINUS RHYTHM PROBABLE ANTEROLATERAL MYOCARDIAL INFARCTION , PROBABLY OLD [35 ms Q WAVE IN I/aVL/V3-V6] Compared to ECG 03/12/2020 04:27:49 Atrial fibrillation no longer present Myocardial infarct finding still present Electronically Signed On 12-08-2021 5:51:33 CDT by Taylor Grande M.D. [id number]
[2021-12-05] MEDS: sodium chloride 0.9% 1,000 ML 999 ML IV (22:15)
[2021-12-05 22:43] LABS: Troponin 5 2HR 34.99 ng/L (0-10)
[2021-12-05 22:56] LABS: Troponin 5 2HR Delta -4.01 ABS# (0-10)
[2021-12-05 23:13] VITALS: BP 118/52; PULSE 79; RESP 18; O2SAT 92
--- NOTE | 2021-12-06 11:35 | DCPLANNER ---
Addendum entered by Jessica Gray 03/09/22 14:56: Patient had a follow up appointment scheduled with heart care - patient did attend appointment Patient had a stress test ordered - patient did attend appointment. Addendum entered by Jessica Gray 12/07/21 14:23: Patient has a follow up appointment scheduled for Monday December 27, 2021 at 12:[address] Lara at [facility]. Clinic will call patient with appointment information. Original Note: industrial sales manager had message to schedule an outpatient stress test for patient. industrial sales manager faxed signed order to centralized scheduling, who will call patient with appointment information. industrial sales manager also had message to schedule a follow up appointment for patient with cardiology. industrial sales manager sent patients information to the front office staff at [facility]. Patients information will be printed and reviewed. Clinic will call patient with appointment information.
== END 2021-12-05 23:15 | disposition home or self-care (01) ==
PROVIDERS: Emergency Provider Emergency Medicine; PCP Family Medicine
DX: I95.1 Orthostatic hypotension (principal); R55 Syncope and collapse; R07.9 Chest pain, unspecified; Z79.01 Long term (current) use of anticoagulants; I25.10 Atherosclerotic heart disease of native coronary artery without angina pectoris; I10 Essential (primary) hypertension; E78.5 Hyperlipidemia, unspecified; E66.9 Obesity, unspecified; Z68.35 Body mass index [BMI] 35.0-35.9, adult
CPT/HCPCS: 70450; 71045; 72125; 80053; 83690; 83880; 84484; 85025; 93005; 96360; 99284; J7030

== ENCOUNTER → 2021-12-27 11:59 | Outpatient (BNVA) | payer MEDICARE, MEDICAID, SELFPAY | PROVIDERS: PCP Family Medicine; Visit Provider Internal Medicine Cardiovascular Disease | DX: Z09 Encounter for follow-up examination after completed treatment for conditions other than malignant neoplasm (principal); I25.2 Old myocardial infarction; J44.9 Chronic obstructive pulmonary disease, unspecified; E66.9 Obesity, unspecified; Z68.35 Body mass index [BMI] 35.0-35.9, adult; Z95.820 Peripheral vascular angioplasty status with implants and grafts; G47.33 Obstructive sleep apnea (adult) (pediatric); E78.5 Hyperlipidemia, unspecified; I13.0 Hypertensive heart and chronic kidney disease with heart failure and stage 1 through stage 4 chronic kidney disease, or unspecified chronic kidney disease; E13.22 Other specified diabetes mellitus with diabetic chronic kidney disease; F17.210 Nicotine dependence, cigarettes, uncomplicated; N18.9 Chronic kidney disease, unspecified; I50.9 Heart failure, unspecified; Z79.84 Long term (current) use of oral hypoglycemic drugs; I25.10 Atherosclerotic heart disease of native coronary artery without angina pectoris | CPT/HCPCS: 99214 ==

== ENCOUNTER → 2022-01-08 09:23 | Outpatient (BNVA) | payer MEDICARE, MEDICAID, SELFPAY | PROVIDERS: PCP Family Medicine; Referring Provider Family Medicine; Visit Provider Podiatrist Foot & Ankle Surgery | DX: L84 Corns and callosities (principal); M21.41 Flat foot [pes planus] (acquired), right foot; M21.42 Flat foot [pes planus] (acquired), left foot; N18.9 Chronic kidney disease, unspecified; E11.42 Type 2 diabetes mellitus with diabetic polyneuropathy | CPT/HCPCS: 11056; 99204 ==

== ENCOUNTER 2022-01-24 07:50 | Outpatient (CLI) | payer MEDICARE, MEDICAID, SELFPAY ==
--- NOTE | 2022-01-24 | ECG_ITS ---
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 Interpretive Statements NAME OF STUDY: LEXISCAN SESTAMIBI STRESS TEST INDICATION: Chest Pain PROCEDURE: At the baseline, the blood pressure was 109/72 mmHg with a heart rate of 81 bpm. The electrocardiogram showed normal sinus rhythm, probable old inferior myocardial infarction. Poor anterior R wave progression. The Lexiscan was infused over a period of 20 seconds. A total of 0.4 milligrams of Lexiscan was infused. The stress phase was continued for a total of 5 minutes. Heart rate at the end of the stress phase was 91 bpm with a blood pressure of 103/66 mmHg. The EKG at the peak infusion revealed sinus rhythm with no significant ST-T wave changes. The study was terminated due to protocol completion. Sestamibi was injected 20 seconds after the Lexiscan infusion. Blood pressure at the end of the recovery phase was 105/63 mmHg with a heart rate of 90 beats per minute. CONCLUSION: 1. No significant EKG changes with the LexiScan infusion. 2. No LexiScan induced chest pain or cardiac arrhythmia. 3. Normal blood pressure and heart rate response. 4. Sestamibi/sestamibi perfusion scan pending; see separate report. Electronically Signed On 01-29-2022 14:45:47 CDT by Vneus Teran M.D. [id number]
[2022-01-24 08:34] VITALS: BMI 36.3
--- NOTE | 2022-01-24 08:36 | NMCV_ITS ---
NM sheldon perf SPECT r/s* [id number] Peri Cid Age: 66 Gender: F : 1955 Exam Date: 01/24/2022 08:36 Ordering Phys: Kingsley Martinez MD Technologist: JU Bass Exam Location: [facility] [address] Indications: Chest pain STRESS TEST Please see separate stress test report in [facility] for full findings IMAGE PROTOCOL Rest/Stress 1 Lexiscan Day Radiopharmaceutical Dose (mCi) Administration Site Administered by Rest: Tc-99m 11.0 IV JU Bass Sestamibi Stress:Tc-99m 32.5 IV JU Bass Sestamibi Rest: 24-Jan-2022 60 Discovery 630 Stress: 24-Jan-2022 30 Discovery 630 0.4mg Lexiscan. Images obtained in supine and prone position. SPECT RESULTS Technical Quality: Excellent Raw Data Analysis: Breast attenuation, Adequate Image Corrections: No attenuation or motion correction applied Summed Stress Score: 25 Summed Rest Score: 26 Summed Difference Score: 2 PERFUSION FINDINGS Large sized perfusion abnormality of entire inferior, basal to mid inferolateral, apical lateral, apical anterior, apical septal and apical fernando on rest images with minimal reversibility in basal anterolateral fernando. FUNCTIONAL RESULTS (calculated via Gated SPECT) Stress Image LV EF (%): 63 Stress EDV (mL):78 TID: 1.18 Stress ESV (mL):29 FUNCTIONAL FINDINGS: The left ventricle is normal in size. Transient Ischemia Dilatation of 1.2. The left ventricular ejection fraction is normal with a value of 63%. There seems to be hypokinesis of inferior wall. IMPRESSIONS 1. Large sized perfusion abnormality of entire inferior, basal to mid inferolateral, apical lateral, apical anterior, apical septal and apical fernando with minimal reversibility in basal anterolateral fernando. 2. This is suggestive of old myocardial infarction in RCA/LCx artery territory with minimal adela-infarct ischemia. 3. The left ventricular ejection fraction is normal with a value of 63%. 4. There seems to be hypokinesis of inferior wall. 5. EKG portion of the study will be reported separately. Venus Teran MD (Electronically Signed) Final Date: 02 February 2022 16:28 S
[2022-01-24] MEDS: regadenoson 0.4 Mg/5 ml Syringe IVP (10:31)
[2022-01-24 10:39] VITALS: BP 105/63; PULSE 90
== END 2022-01-24 07:51 | disposition home or self-care (01) ==
PROVIDERS: PCP Family Medicine; Visit Provider Emergency Medicine
DX: R07.9 Chest pain, unspecified (principal)
CPT/HCPCS: 78452; 93017; A9500; J2785

== ENCOUNTER → 2022-01-29 13:35 | Outpatient (BNVA) | payer MEDICARE, MEDICAID, SELFPAY | PROVIDERS: PCP Family Medicine; Visit Provider Internal Medicine Cardiovascular Disease | DX: I13.0 Hypertensive heart and chronic kidney disease with heart failure and stage 1 through stage 4 chronic kidney disease, or unspecified chronic kidney disease (principal); E13.22 Other specified diabetes mellitus with diabetic chronic kidney disease; F17.210 Nicotine dependence, cigarettes, uncomplicated; I50.9 Heart failure, unspecified; N18.9 Chronic kidney disease, unspecified; Z79.84 Long term (current) use of oral hypoglycemic drugs; I25.10 Atherosclerotic heart disease of native coronary artery without angina pectoris | CPT/HCPCS: 99214 ==

== ENCOUNTER 2022-03-02 08:41 | Outpatient (CLI) | payer MEDICARE, MEDICAID, SELFPAY ==
--- NOTE | 2022-03-02 08:47 | CT_ITS ---
WS: [id number] LDCT LUNG CANCER SCREENING TECHNIQUE: Noncontrast CT of the chest with coronal and sagittal reformatted images. CLINICAL INFORMATION: NICOTINE DEPENDENCE, CIGARETTES COMPARISON: CT chest February 09, 2021 DLP: 65.10 mGy.cm DIvol: Mean CTDIvol: 1.60 (mGy) All CT scans at [facility] use at least one of these dose optimization techniques: automat ed exposure control; mA and/or kV adjustment per patient size (includes targeted exams where dose is matched to clinical indication); or iterative reconstruction. FINDINGS: Moderate chronic emphysematous changes. No acute pulmonary infiltrates. Tiny 2 mm noncalcified nodule LEFT upper lobe. Normal caliber thoracic aorta. Coronary calcification. A few enlarged anterior medi astinal and peribronchial lymph nodes unchanged. Largest measures approximately 10 mm anteriorly unch anged Postoperative changes at the GE junction. Persistent eccentric soft tissue thickening in the distal e sophagus eccentric to the right is again seen. Recommend further evaluation with endoscopy to exclude neoplasm if this has not been performed. This remains similar in appearance to CT abdomen pelvis 11 . Diffuse fatty infiltration of the liver. Large gallstone in the gallbladder measuring 4.8 cm. Adrenal glands are normal. No axillary lymphadenopathy. Mild thoracic kyphosis. CT/CT lung screening [id number] IMPRESSION: Persistent eccentric soft tissue thickening in the distal esophagus eccentric to the right is again seen. Recommend further evaluation with endosc opy to exclude neoplasm if this has not been performed LUNG-RADS: FOLLOW UP: 12 Month: Continue annual screening with LDCT
== END 2022-03-02 08:42 | disposition home or self-care (01) ==
LOC: RAD 08:42
PROVIDERS: PCP Family Medicine; Visit Provider Family Medicine
DX: Z12.2 Encounter for screening for malignant neoplasm of respiratory organs (principal); F17.210 Nicotine dependence, cigarettes, uncomplicated
CPT/HCPCS: 71271

== ENCOUNTER → 2022-04-02 10:12 | Outpatient (BNVA) | payer MEDICARE, MEDICAID, SELFPAY | PROVIDERS: Visit Provider Family Medicine | DX: E11.42 Type 2 diabetes mellitus with diabetic polyneuropathy (principal); J44.9 Chronic obstructive pulmonary disease, unspecified; E66.9 Obesity, unspecified; E11.22 Type 2 diabetes mellitus with diabetic chronic kidney disease; I13.0 Hypertensive heart and chronic kidney disease with heart failure and stage 1 through stage 4 chronic kidney disease, or unspecified chronic kidney disease; I50.9 Heart failure, unspecified; N18.9 Chronic kidney disease, unspecified; I25.10 Atherosclerotic heart disease of native coronary artery without angina pectoris; G47.33 Obstructive sleep apnea (adult) (pediatric) | CPT/HCPCS: 80053; 80061; 83036; 84439; 84443; 85025 ==

== ENCOUNTER → 2022-04-30 11:20 | Outpatient (BNVA) | payer MEDICARE, MEDICAID, SELFPAY | PROVIDERS: Visit Provider Family Medicine | DX: E11.42 Type 2 diabetes mellitus with diabetic polyneuropathy (principal); E11.22 Type 2 diabetes mellitus with diabetic chronic kidney disease; N18.30 Chronic kidney disease, stage 3 unspecified | CPT/HCPCS: 80069; 82310; 82652; 83970 ==

== ENCOUNTER 2022-05-28 11:01 | Emergency (ER) | payer MEDICARE, MEDICAID, SELFPAY ==
[2022-05-28 11:27] VITALS: BP 106/74; PULSE 99; RESP 24; TEMP 36.3; O2SAT 88
--- NOTE | 2022-05-28 11:48 | XR_ITS ---
WS: [id number] EXAMINATION: XR chest 1V portable [id number] REASON FOR EXAM: dyspnea/cough COMPARISON: 12/05/2021 ORDER DATE: 05/28/2022 11:50 AM TECHNIQUE: A single, portable frontal chest x-ray was obtained. X-RAY FINDINGS: The lungs are clear. Pleural spaces are clear. No pleural effusions or pneumothorax. Cardiomediastinal silhouette is normal. No evidence for pulmonary edema. Soft tissue and osseous structures are unremarkable. No tubes or lines are present. XR/XR chest 1V portable [id number] IMPRESSION: Unremarkable frontal portable chest x-ray.
--- NOTE | 2022-05-28 11:50 | W.ED.SOB ---
HPI - SOB/Dyspnea General: Chief Complaint: Shortness of Breath/Dyspnea Stated Complaint: Bruising on abd. On blood thinners Time Seen by Provider: 05/28/22 11:32 Source: patient Mode of arrival: ambulatory History of Present Illness: HPI Narrative: 66-year-old female comes in complaining of coughing fits at times nonproductive she has a history of COPD her cough she states is only slightly worse than her normal baseline seems to have caught something viral several other family members have been ill. She not had any fever sweats or chills she is on anticoagulants has noticed some bruising in her abdomen felt a pulling sensation with some of the cough the bruising developed it seems to have spread a little bit. she is chronically on oxygen at home and still does smoke. MD elicited complaint: shortness of breath and cough Pertinent past history: COPD Onset (ago): day(s) Context: recent illness Timing: intermittent Severity: mild Exacerbating factors: nothing Relieving factors: nothing Known history of: COPD Associated symptoms: Reports cough; Deny abdominal pain, chest congestion, chest pain, diaphoresis, dizziness, extremity pain, fever(s), hemoptysis, lightheadedness, myalgias, nausea, orthopnea, palpitations, paresthesias, polydipsia, polyuria, rash, sense of impending doom, syncope or vomiting Treatment prior to arrival: oxygen and bronchodilator Review of Systems Const: Denies: fever(s), chills, fatigue, malaise or diaphoresis ENMT: Denies: throat pain, ear or mastoid pain, nasal discharge or nasal congestion Card: Denies: chest pain, palpitations, edema, swelling of feet/ankles, lightheadedness, syncope or orthopnea Resp: Denies: hemoptysis or chest congestion GI: Denies: abdominal pain, nausea or vomiting : Denies: flank pain, difficulty voiding, dysuria, urinary frequency or urinary urgency Musc: Denies: extremity pain Skin/Breast: Denies: rash or pruritus Neuro: Denies: dizziness Endo: Denies: polyuria or polydipsia PFS ED PFSH: Medical History ASHD (arteriosclerotic heart disease) CHF (congestive heart failure) CKD (chronic kidney disease) COPD (chronic obstructive pulmonary disease) Coronary artery disease 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, managed as type 2 HTN (hypertension) Hyperlipidemia Myocardial infarction Obesity EDNA (obstructive sleep apnea) Recurrent UTI Renal calculus, left treated with ESWL with resolution S/P extracorporeal shock wave therapy Tobacco abuse Urolithiasis Surgical History H/O bariatric surgery S/P angioplasty with stent Family History Mother , at age 86 CAD (coronary artery disease) Diabetes Myocardial infarction Hypertension Father , AGE 72 Diabetes CAD (coronary artery disease) Cancer LUNG Brother Diabetes CAD (coronary artery disease) Hypertension Sister Diabetes Social History (Updated 04/30/22 @ 10:36 by Mariah Maya LPN) Smoking and tobacco status: current every day smoker cigarettes Alcohol intake: never Adopted: No Caregiver/support person: No Marital status: Legally Current occupational status: retired and disabled History of recent travel: No Current gender identity: Female Female Reproductive History: Spontaneous abortions: No Physical Exam Const: COMMON NORMALS: no acute distress GENERAL APPEARANCE: cooperative and comfortable ORIENTATION/CONSCIOUSNESS: Yes awake, Yes oriented to person, Yes oriented to place and Yes oriented to time HENMT: COMMON NORMALS: normocephalic, atraumatic and hearing grossly normal bilaterally HEAD & SCALP: normocephalic and atraumatic Resp: COMMON NORMALS: normal respiratory effort, No retractions and No use of accessory muscles AUSCULTATION: wheezes (Mild bilateral) Cardio: COMMON NORMALS: regular rate, regular rhythm and No murmurs present (Cardio) RATE: regular rate RHYTHM: regular rhythm GI: COMMON NORMALS: Soft to palpation and No hepatosplenomegaly present AUSCULTATION: Yes normoactive bowel sounds PALPATION: Yes Soft to palpation, No Tenderness to palpation present (GI), No Guarding due to palpation present (GI) and Yes No hepatosplenomegaly present OTHER: Abdominal wall hematoma with some bruising in the right lower quadrant to the exam of the abdomen no is otherwise benign no palpable mass. It is moved to dependent areas along the waistline and towards the back. Extremity: COMMON NORMALS: normal to inspection, capillary refill normal, no clubbing, cyanosis or edema, no calf tenderness and no pedal edema Neuro: SENSORIUM/ORIENTATION: Yes oriented to person, Yes oriented to place and Yes oriented to time Skin: COMMON NORMALS: no rashes or lesions noted GENERAL SKIN EXAM: no rashes or lesions noted Course Vital Signs: Vital signs: Vital Signs Temperature 97.3 F L 05/28/22 11:27 Pulse Rate 99 05/28/22 11:27 Respiratory Rate 24 H 05/28/22 11:27 Blood Pressure 106/74 05/28/22 11:27 Pulse Oximetry 88 L 05/28/22 11:27 Oxygen Delivery Me thod 05/28/22 11:27 MDM - SOB/Dyspnea Medical Decision Making Abdominal wall hematoma. Patient is on apixaban which think is what caused that she has noticed about her baseline cough from her COPD recommend that she use the albuterol regularly to minimize cough. If symptoms persist follow-up with primary care. Medical Records I reviewed the patient's medical records. Lab Data I reviewed the patient's lab results. Discharge Plan Discharge Patient Disposition: Home Clinical Impression: COPD (chronic obstructive pulmonary disease), Abdominal wall hematoma Condition: Stable Prescriptions: No Action rosuvastatin 10 mg tablet 10 mg PO BEDTIME amitriptyline 50 mg tablet 50 mg PO BEDTIME tizanidine [Zanaflex] 4 mg capsule 4 mg PO Q6H PRN (Reason: Muscle Spasm) fluticasone propionate [Flonase Allergy Relief] 50 mcg/actuation spray,suspension 2 spray INTRANASAL DAILY PRN (Reason: Allergy Symptoms) tramadol 50 mg tablet 50 mg PO BID PRN (Reason: Pain) gabapentin 300 mg capsule See Rx Instructions .ROUTE .COMPLEX Rx Instructions: 900 mg orally in the morning / 600 mg orally in the evening mirtazapine 30 mg tablet 30 mg PO BEDTIME albuterol sulfate 90 mcg/actuation HFA aerosol inhaler 2 puff inhalation Q6H PRN (Reason: Shortness Of Breath) lansoprazole 30 mg capsule,delayed release(DR/EC) 30 mg PO DAILY metoprolol succinate 25 mg tablet extended release 24 hr 25 mg PO BEDTIME furosemide 40 mg tablet 40 mg PO Q48H methenamine hippurate 1 gram tablet See Rx Instructions .ROUTE .COMPLEX Qty: 60 12RF Dose Instruction: TAKE 1 TABLET BY MOUTH TWICE DAILY ALONG WITH VITAMIN-C Rx Instructions: TAKE 1 TABLET BY MOUTH TWICE DAILY ALONG WITH VITAMIN-C Eliquis 5 mg tablet 5 mg PO BID Qty: 180 3RF clopidogrel 75 mg tablet 75 mg PO DAILY Qty: 90 1RF nitroglycerin [Nitrostat] 0.4 mg tablet, sublingual 0.4 mg SUBLINGUAL Q5M PRN (Reason: Chest Pain) Qty: 25 6RF ascorbic acid (vitamin C) [Vitamin C] 500 mg Tablet 500 mg PO DAILY Rx Instructions: TAKE WITH METHENAMINE [id number] [krill oil] [id number] mg Capsule 1 cap PO DAILY levothyroxine 125 mcg tablet 112 mcg PO DAILY calcitriol 0.25 mcg capsule 0.25 mcg PO DAILY albuterol sulfate 2.5 mg /3 mL (0.083 %) Solution For Nebulization 2.5 mg INHALATION Q6H PRN (Reason: Shortness Of Breath) enalapril maleate 2.5 mg Tablet 2.5 mg PO DAILY Discharge Orders: Discharge ED (Routine); Ordered 05/28/22 Ordered By: Howie Hernández Referrals: Doug Allen DO [Primary Care Provider] - Discharge Diet: Usual diet Discharge Activity: Increase activity as tolerated Patient Instructions: Opioid Safety, Pain Management Activity Restrictions/Additional Instructions: You were seen today for bruising in your abdomen. This is thought to be secondary to coughing and while taking the anticoagulants. You can use ice or heat as provides comfort. Use your albuterol inhaler 2 try to limit your cough. If your symptoms worsen or change recheck. Coding Level of Care Code ED [facility] [place] [facility] Exam Detailed
[2022-05-28 12:00] VITALS: BP 110/87; PULSE 74; O2SAT 99
[2022-05-28 12:35] VITALS: BP 112/69; PULSE 79; O2SAT 95
== END 2022-05-28 12:33 | disposition home or self-care (01) ==
PROVIDERS: Emergency Provider Family Medicine; PCP Family Medicine
DX: J44.9 Chronic obstructive pulmonary disease, unspecified (principal); S30.1XXA Contusion of abdominal wall, initial encounter; Z79.01 Long term (current) use of anticoagulants; Z79.02 Long term (current) use of antithrombotics/antiplatelets; I13.0 Hypertensive heart and chronic kidney disease with heart failure and stage 1 through stage 4 chronic kidney disease, or unspecified chronic kidney disease; E13.22 Other specified diabetes mellitus with diabetic chronic kidney disease; N18.9 Chronic kidney disease, unspecified; I50.9 Heart failure, unspecified; I25.10 Atherosclerotic heart disease of native coronary artery without angina pectoris; E78.5 Hyperlipidemia, unspecified; I25.2 Old myocardial infarction; F17.210 Nicotine dependence, cigarettes, uncomplicated; X58.XXXA Exposure to other specified factors, initial encounter
CPT/HCPCS: 71045; 99283

== ENCOUNTER → 2022-06-12 10:10 | Outpatient (BNVA) | payer MEDICARE, MEDICAID, SELFPAY | PROVIDERS: PCP Family Medicine; Visit Provider Podiatrist Foot & Ankle Surgery | DX: E11.8 Type 2 diabetes mellitus with unspecified complications (principal); L84 Corns and callosities; M21.41 Flat foot [pes planus] (acquired), right foot; M21.42 Flat foot [pes planus] (acquired), left foot; N18.32 Chronic kidney disease, stage 3b; E11.42 Type 2 diabetes mellitus with diabetic polyneuropathy | CPT/HCPCS: 11056; 11721 ==

== ENCOUNTER → 2022-07-30 11:15 | Outpatient (BNVA) | payer MEDICARE, MEDICAID, SELFPAY | PROVIDERS: PCP Family Medicine; Visit Provider Family Medicine | DX: E03.9 Hypothyroidism, unspecified (principal); I13.0 Hypertensive heart and chronic kidney disease with heart failure and stage 1 through stage 4 chronic kidney disease, or unspecified chronic kidney disease; I50.9 Heart failure, unspecified; N18.32 Chronic kidney disease, stage 3b; E13.22 Other specified diabetes mellitus with diabetic chronic kidney disease | CPT/HCPCS: 80053; 80061; 82043; 82652; 83036; 83880; 84443; 85025 ==

== ENCOUNTER → 2022-10-02 11:00 | Outpatient (BNVA) | payer MEDICARE, MEDICAID, SELFPAY | PROVIDERS: PCP Family Medicine; Visit Provider Podiatrist Foot & Ankle Surgery | DX: E11.8 Type 2 diabetes mellitus with unspecified complications (principal); L84 Corns and callosities; M21.41 Flat foot [pes planus] (acquired), right foot; M21.42 Flat foot [pes planus] (acquired), left foot; N18.32 Chronic kidney disease, stage 3b; E11.42 Type 2 diabetes mellitus with diabetic polyneuropathy; E11.22 Type 2 diabetes mellitus with diabetic chronic kidney disease | CPT/HCPCS: 11056 ==

== ENCOUNTER → 2022-10-15 12:16 | Outpatient (BNVA) | payer MEDICARE, MEDICAID, SELFPAY | PROVIDERS: PCP Family Medicine; Visit Provider Internal Medicine Cardiovascular Disease | DX: I13.0 Hypertensive heart and chronic kidney disease with heart failure and stage 1 through stage 4 chronic kidney disease, or unspecified chronic kidney disease (principal); E13.22 Other specified diabetes mellitus with diabetic chronic kidney disease; F17.210 Nicotine dependence, cigarettes, uncomplicated; N18.9 Chronic kidney disease, unspecified; I50.9 Heart failure, unspecified; Z79.84 Long term (current) use of oral hypoglycemic drugs; I25.10 Atherosclerotic heart disease of native coronary artery without angina pectoris; I25.2 Old myocardial infarction | CPT/HCPCS: 99214 ==

== ENCOUNTER → 2022-11-08 12:59 | Outpatient (BNVA) | payer MEDICARE, MEDICAID, SELFPAY | PROVIDERS: PCP Family Medicine; Visit Provider Family Medicine | DX: E11.21 Type 2 diabetes mellitus with diabetic nephropathy (principal); N18.32 Chronic kidney disease, stage 3b; N25.81 Secondary hyperparathyroidism of renal origin | CPT/HCPCS: 80069; 82043; 85025 ==

== ENCOUNTER 2022-12-04 11:49 | Outpatient (CLI) | payer MEDICARE, MEDICAID, SELFPAY ==
--- NOTE | 2022-12-04 12:09 | XR_ITS ---
WS: [id number] XR KUB [id number] REASON FOR EXAM: stones FINDINGS: No urinary tract calculi are identified. No other significant abdominal or pelvic finding. XR/XR KUB [id number] IMPRESSION: No urinary tract calculi identified.
== END 2022-12-04 11:50 | disposition home or self-care (01) ==
LOC: RAD 11:51
PROVIDERS: PCP Family Medicine; Visit Provider Urology
DX: N20.9 Urinary calculus, unspecified (principal); N30.80 Other cystitis without hematuria
CPT/HCPCS: 74018; 81003; 87077; 87086; 87186; 99213

== ENCOUNTER → 2023-01-08 11:04 | Outpatient (BNVA) | payer MEDICARE, MEDICAID, SELFPAY | PROVIDERS: PCP Family Medicine; Visit Provider Podiatrist Foot & Ankle Surgery | DX: M21.41 Flat foot [pes planus] (acquired), right foot (principal); M21.42 Flat foot [pes planus] (acquired), left foot; E11.22 Type 2 diabetes mellitus with diabetic chronic kidney disease; N18.32 Chronic kidney disease, stage 3b; E11.42 Type 2 diabetes mellitus with diabetic polyneuropathy | CPT/HCPCS: 99213 ==

== ENCOUNTER 2023-01-22 16:13 | Outpatient (CLI) | payer MEDICARE, MEDICAID, SELFPAY ==
--- NOTE | 2023-01-22 16:30 | CT_ITS ---
WS: [id number] CT CERVICAL TRAUMA TECHNIQUE: Noncontrast CT of the cervical spine with coronal and sagittal reformatted images. CLINICAL INFORMATION: Fall with injury to head COMPARISON: None. DLP: 307.[address] scans at [facility] use at least one of these dose optimization techniques: automated e xposure control; mA and/or kV adjustment per patient size (includes targeted exams where dose is matc hed to clinical indication); or iterative reconstruction. FINDINGS: Straightening of the normal cervical lordosis. Moderate spondylitic changes. Disc osteophyte complexe s worse at C4-C6. Normal craniocervical junction. Normal C1-C2 articulation. Dens is normal in appear ance. Normal occipital condyles. No high-grade spinal canal narrowing. Normal C1 ring. No evidence of acute fracture or dislocation. Normal prevertebral soft tissues. Mastoids air cells are well aerated. CT/CT cervical spin wo con* [id number] IMPRESSION: No evidence of acute fracture or dislocation.
--- NOTE | 2023-01-22 17:00 | CT_ITS ---
WS: [id number] CT HEAD TECHNIQUE: Noncontrast CT of the head obtained from the skullbase to the vertex. CLINICAL INFORMATION: Fall with injury to head COMPARISON: December 05, 2021 DLP: 1040.[address] scans at [facility] use at least one of these dose optimization techniques: automated e xposure control; mA and/or kV adjustment per patient size (includes targeted exams where dose is matc hed to clinical indication); or iterative reconstruction. FINDINGS: No evidence of intracranial hemorrhage or mass effect. Ventricular system and basal cisterns are graham nt. Moderate small vessel changes with moderate parenchymal volume loss worse in the frontal lobes. N o extra-axial fluid collections. No evidence of mass or mass effect. Paranasal sinuses and mastoid air cells are well aerated. .Normal visualized soft tissues. Intracrani al vascular calcification. CT/CT head wo con* [id number] IMPRESSION: 1. No evidence of intracranial hemorrhage or mass effect. 2. Moderate small vessel changes with moderate parenchymal volume loss worse i n the frontal lobes. 3. No acute intracranial findings.
== END 2023-01-22 16:14 | disposition home or self-care (01) ==
PROVIDERS: PCP Family Medicine; Visit Provider Family Medicine
DX: S09.90XA Unspecified injury of head, initial encounter (principal); S19.9XXA Unspecified injury of neck, initial encounter; W19.XXXA Unspecified fall, initial encounter
CPT/HCPCS: 70450; 72125

== ENCOUNTER 2023-01-25 16:43 | Inpatient (IN) | payer MEDICARE, MEDICAID, SELFPAY ==
[2023-01-25] VITALS (29 sets, daily range): BP systolic 50–116; BP diastolic 31–76; PULSE 50–89; RESP 13–22; TEMP 36.8; O2SAT 86–100; BMI 32.5
--- NOTE | 2023-01-25 16:54 | CTR_ITS ---
PROCEDURE INFORMATION: Exam: CT Head Without Contrast Exam date and time: 01/25/2023 6:16 PM Age: 67 years old Clinical indication: Injury or trauma; Blunt trauma (contusions or hematomas); Syncope and collapse; Patient HX: Syncope with fall and headstrike at home. Hypotensive on monitor. TECHNIQUE: Imaging protocol: Computed tomography of the head without contrast. Radiation optimization: All CT scans at this facility use at least one of these dose optimization techniques: automated exposure control; mA and/or kV adjustment per patient size (includes targeted exams where dose is matched to clinical indication); or iterative reconstruction. REPORTING DATA: Count of CT and Cardiac NM exams in prior 12 months: This patient has received 3 known CTs and 0 known cardiac nuclear medicine studies in the 12 months prior to the current study. COMPARISON: CT head wo con* [id number] 01/22/2023 4:27 PM RADIATION DOSE METRICS: Total DLP (mGy-cm): 1108.9 FINDINGS: Brain: No hemorrhage. No edema. Mild diffuse cerebral atrophy and sequela of chronic small vessel ischemic disease. No mass effect. Cerebral ventricles: No ventriculomegaly. Paranasal sinuses: Visualized sinuses are unremarkable. No fluid levels. Mastoid air cells: Visualized mastoid air cells are well aerated. Bones/joints: Unremarkable. No acute fracture. Soft tissues: Unremarkable. CT/CT head wo con* [id number] IMPRESSION: No acute intracranial abnormality.
--- NOTE | 2023-01-25 16:54 | CTR_ITS ---
PROCEDURE INFORMATION: Exam: CT Cervical Spine Without Contrast Exam date and time: 01/25/2023 6:20 PM Age: 67 years old Clinical indication: Injury or trauma; Blunt trauma; Patient HX: Syncope with fall and headstrike at home. Hypotensive on monitor. TECHNIQUE: Imaging protocol: Computed tomography of the cervical spine without contrast. Radiation optimization: All CT scans at this facility use at least one of these dose optimization techniques: automated exposure control; mA and/or kV adjustment per patient size (includes targeted exams where dose is matched to clinical indication); or iterative reconstruction. REPORTING DATA: Count of CT and Cardiac NM exams in prior 12 months: This patient has received 3 known CTs and 0 known cardiac nuclear medicine studies in the 12 months prior to the current study. COMPARISON: CT cervical spin wo con* [id number] 01/22/2023 4:30 PM RADIATION DOSE METRICS: Total DLP (mGy-cm): 200.97 FINDINGS: Bones/joints: No acute fracture. Normal alignment. No significant disc bulge or herniation. No severe spinal canal stenosis. Lungs: Increased interstitial lung markings at the lung apices. Soft tissues: Unremarkable. CT/CT cervical spin wo con* [id number] IMPRESSION: 1. No acute osseous abnormalities of the cervical spine. 2. Increased interstitial lung markings at the lung apices which may reflect interstitial pulmonary edema in the appropriate clinical context.
--- NOTE | 2023-01-25 16:54 | XRR_ITS ---
PROCEDURE INFORMATION: Exam: XR Right Ankle Exam date and time: 01/25/2023 5:28 PM Age: 67 years old Clinical indication: Injury or trauma; Fall; Blunt trauma; Ankle; Right TECHNIQUE: Imaging protocol: Radiologic exam of the right ankle. Views: 3 or more views. COMPARISON: No relevant prior studies available. FINDINGS: Bones/joints: The there is a comminuted diastatic fracture of the medial malleolus and the medial edge of the distal tibia. There is also a comminuted mildly displaced fracture of the fibula. There appears to be some irregularity of the ankle mortise anterior and medially. Soft tissues: Normal. XR/XR ankle RT min 3V* [id number] IMPRESSION: Distal tibial and fibular fractures. Consider CT for further evaluation if clinically warranted.
--- NOTE | 2023-01-25 16:54 | XRR_ITS ---
PROCEDURE INFORMATION: Exam: XR Chest Exam date and time: 01/25/2023 5:28 PM Age: 67 years old Clinical indication: Injury or trauma; Fall; Other: Syncope TECHNIQUE: Imaging protocol: Radiologic exam of the chest. Views: 1 view. COMPARISON: CR XR chest 1V portable [id number] 05/28/2022 11:52 AM FINDINGS: Lungs: Unremarkable. No consolidation. Pleural spaces: Unremarkable. No pleural effusion. No pneumothorax. Heart/Mediastinum: Unremarkable. No cardiomegaly. Bones/joints: Unremarkable. XR/XR chest 1V portable [id number] IMPRESSION: No acute findings.
--- NOTE | 2023-01-25 17:05 | ECG_ITS ---
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 Measurements Intervals Nice Rate: 58 P: 43 WI: 161 QRS: -16 QRSD: 105 T: 9 QT: 445 QTc: 440 Interpretive Statements SINUS BRADYCARDIA PROBABLE LATERAL MYOCARDIAL INFARCTION , PROBABLY OLD [35 ms Q WAVE IN I/aVL/V5/V6] Compared to ECG 12/05/2021 22:17:29 Sinus rhythm no longer present Myocardial infarct finding still present Electronically Signed On 01-25-2023 22:56:03 CDT by Venus Teran M.D. [email or web address]
--- NOTE | 2023-01-25 17:10 | PC.NURSE ---
Patient hooked up to continuous bedside cardiac monitoring.
[2023-01-25] MEDS: sodium chloride 0.9% 1,000 ML 999 ML IV ×3 (17:13→19:07)
[2023-01-25 17:14] LABS: Basophils % 0.3 %; Eosinophils # 0.1 10^3/uL (0.0-0.8); Eosinophils % 0.8 %; Hematocrit 39.2 % (37.0-47.0); Hemoglobin 12.6 g/dL (11.5-15.3); Lymphocytes # 3.4 10^3/uL (0.8-4.8); Lymphocytes % 38.4 %; Mean Corpuscular HGB Conc 32.1 g/dL (30.0-36.0); Mean Corpuscular Volume 102.6 fl (81-99); Mean Platelet Volume 11.4 fL (7.4-10.4); Monocytes # 0.6 10^3/uL (0.2-0.9); Neutrophils # 4.63 10^3/uL (1.8-7.7); Nucleated Red Blood Cells % 0 %; Platelet Count 254 10^3/cmm (130-400); Red Blood Count 3.82 10^6/uL (4.1-5.3); Red Cell Distribution Width 17.6 % (12.1-15.1); White Blood Count 8.7 10^3/uL (4.0-10.0)
--- NOTE | 2023-01-25 17:18 | W.ED.SYNCOPE ---
HPI - Syncope General: Chief Complaint: Syncope Stated Complaint: syncopal epidsoe Time Seen by Provider: 01/25/23 16:46 Source: patient and EMS Mode of arrival: EMS Limitations: no limitations History of Present Illness: 67-year-old female states that 3 or 4 hours ago she had taken to tizanidine along with the tramadol she states she was in bed sleeping decided to get up and passed out. States she is felt very lightheaded she is hypotensive here she states she had injured her ankle when she had fell also hit her head. She has ankle pain she rates a 5 out of 10 she denies any vomiting diarrhea denies any chest pain. Associated symptoms: Reports headache(s); Deny abdominal pain, chest pain, fever(s) or nausea Review of Systems Const: Denies: fever(s) or chills ENMT: Denies: throat pain or dental pain Card: Reports: syncope; Denies: chest pain Resp: Denies: dyspnea GI: Denies: abdominal pain, nausea, vomiting or diarrhea Musc: Reports: extremity pain; Denies: neck pain or back pain Skin/Breast: Denies: rash Neuro: Reports: headache(s) PFS ED PFSH: Medical History ASHD (arteriosclerotic heart disease) CHF (congestive heart failure) CKD (chronic kidney disease) COPD (chronic obstructive pulmonary disease) Coronary artery disease 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, managed as type 2 Diabetic neuropathy GERD (gastroesophageal reflux disease) HTN (hypertension) Hyperlipidemia Myocardial infarction Obesity EDNA (obstructive sleep apnea) Recurrent UTI Renal calculus, left treated with ESWL with resolution S/P extracorporeal shock wave therapy Tobacco abuse Urolithiasis Surgical History H/O bariatric surgery S/P angioplasty with stent Family History Mother , at age 86 CAD (coronary artery disease) Diabetes Myocardial infarction Hypertension Father , AGE 72 Diabetes CAD (coronary artery disease) Cancer LUNG Brother Diabetes CAD (coronary artery disease) Hypertension Sister Diabetes Social History Smoking and tobacco status: current every day smoker cigarettes Alcohol intake: never Adopted: No Caregiver/support person: No Marital status: Legally Current occupational status: retired and disabled Current gender identity: Female Female Reproductive History: Spontaneous abortions: No Physical Exam Const: COMMON NORMALS: patient oriented x3 GENERAL APPEARANCE: ill appearing HENMT: COMMON NORMALS: normocephalic and atraumatic HEAD & SCALP: normocephalic and atraumatic Eye: COMMON NORMALS: Equal, round and reactive pupils present PUPIL: Yes Equal, round and reactive pupils present Neck/C-Spine: COMMON NORMALS: full ROM and supple Chest: COMMONS NORMALS: normal inspection of the chest and normal palpation of entire chest wall Resp: COMMON NORMALS: normal respiratory effort, No retractions, No use of accessory muscles and clear to auscultation bilaterally AUSCULTATION: clear to auscultation bilaterally Cardio: COMMON NORMALS: regular rate, regular rhythm and No murmurs present (Cardio) RATE: regular rate RHYTHM: regular rhythm GI: COMMON NORMALS: Normal to inspection, nondistended, normoactive bowel sounds present, Soft to palpation, non-tender and no masses PALPATION: Yes Soft to palpation Extremity: NARRATIVE EXTREMITY EXAM: tender to rle Neuro: COMMON NORMALS: patient oriented x3, moves all extremities and no focal motor deficits Psych: COMMON NORMALS: mental status grossly normal, Normal thought process present and cooperative THOUGHT PROCESS: Normal thought process present Skin: COMMON NORMALS: no rashes or lesions noted and no wounds GENERAL SKIN EXAM: no rashes or lesions noted Course Vital Signs: Vital signs: Vital Signs Temperature 98.3 F 01/25/23 16:47 Pulse Rate 54 L 01/25/23 18:50 Respiratory Rate 18 01/25/23 19:41 Blood Pressure 99/59 01/25/23 18:50 Pulse Oximetry 98 01/25/23 18:50 Oxygen Delivery Me thod Room Air 01/25/23 17:18 Oxygen Flow Rate 2 01/25/23 16:47 MDM - Syncope Medical Decision Making Patient presents here with syncopal event along with hypotension likely from her medication her Zanaflex and her tramadol. Her blood pressure here is improved its now 111/66. She does have a UTI I do not believe she is in septic shock I believe this is more from her meds. Imaging is normal besides she does have an ankle fracture did place her in a splint spoke to hospitalist along with surgeon will admit at this time. Medical Records I reviewed the patient's medical records. Lab Data I reviewed the patient's lab results. 01/25/23 16:27 01/25/23 16:27 Radiology Impressions Ankle X-Ray 01/25/23 16:54 IMPRESSION: Distal tibial and fibular fractures. Consider CT for further evaluation if clinically warranted. Cervical Spine CT 01/25/23 16:54 IMPRESSION: 1. No acute osseous abnormalities of the cervical spine. 2. Increased interstitial lung markings at the lung apices which may reflect interstitial pulmonary edema in the appropriate clinical context. Chest X-Ray 01/25/23 16:54 IMPRESSION: No acute findings. Head CT 01/25/23 16:54 IMPRESSION: No acute intracranial abnormality. Laboratory Results WBC 8.7 10^3/uL (4.0-10.0) 01/25/23 16:27 RBC 3.82 10^6/uL (4.1-5.3) L 01/25/23 16:27 Hgb 12.6 g/dL (11.5-15.3) 01/25/23 16:27 Hct 39.2 % (37.0-47.0) 01/25/23 16:27 MCV 102.6 fl (81-99) H 01/25/23 16:27 MCH 33.0 pg (28.0-34.0) 01/25/23 16:27 MCHC 32.1 g/dL (30.0-36.0) 01/25/23 16:27 RDW 17.6 % (12.1-15.1) H 01/25/23 16:27 Plt Count 254 10^3/cmm (130-400) 01/25/23 16:27 MPV 11.4 fL (7.4-10.4) H 01/25/23 16:27 Neut % (Auto) 53.0 % 01/25/23 16:27 Lymph % (Auto) 38.4 % 01/25/23 16:27 [place] % (Auto) 7.0 % 01/25/23 16:27 Eos % (Auto) 0.8 % 01/25/23 16:27 Baso % (Auto) 0.3 % 01/25/23 16:27 Neut # (Auto) 4.63 10^3/uL (1.8-7.7) 01/25/23 16:27 Lymph # (Auto) 3.4 10^3/uL (0.8-4.8) 01/25/23 16:27 [place] # (Auto) 0.6 10^3/uL (0.2-0.9) 01/25/23 16:27 Eos # (Auto) 0.1 10^3/uL (0.0-0.8) 01/25/23 16:27 Baso # (Auto) 0.0 10^3/uL (0.0-0.1) 01/25/23 16:27 Nucleated RBC % (auto) 0 % 01/25/23 16: Nucleated RBCs # 0.0 /100WBC 01/25/23 16:27 PT 17.60 SECONDS (12.1-14.9) H 01/25/23 16:27 INR 1.40 (0.8-1.2) H 01/25/23 16:27 Sodium 138 mmol/L (136-145) 01/25/23 16:27 Potassium 3.9 mmol/L (3.5-5.1) 01/25/23 16:27 Chloride 102 mmol/L (98-107) 01/25/23 16:27 Carbon Dioxide 24 mmol/L (22-29) 01/25/23 16:27 Anion Gap 15.9 (5-19) 01/25/23 16:27 BUN 11 mg/dL (8-23) 01/25/23 16:27 Creatinine 1.1 mg/dL (0.5-0.9) H 01/25/23 16:27 GFR Calculation 49.5 mL/min (90-130) L 01/25/23 16:27 Glucose 113 mg/dL (65-115) 01/25/23 16:27 Calculated Osmolality 286 mOsm/kg (285-295) 01/25/23 16:27 Lactic Acid 2.4 mmol/L (0.5-2.2) H 01/25/23 17:25 Calcium 8.1 mg/dL (8.5-10.5) L 01/25/23 16:27 Total Bilirubin 0.6 mg/dL (0.15-1.2) 01/25/23 16:27 AST 39 U/L (0-32) H 01/25/23 16:27 ALT 23 U/L (0-33) 01/25/23 16:27 Alkaline Phosphatase 87 U/L (35-105) 01/25/23 16:27 Troponin T Baseline 41 ng/L (0-10) H 01/25/23 16:27 Troponin T 120 Minute 36.78 ng/L (0-10) H 01/25/23 18:31 Delta Troponin T -4.22 ABS# (0-10) L 01/25/23 18:31 Total Protein 5.9 g/dL (6.6-8.7) L 01/25/23 16:27 Albumin 2.5 g/dL (3.5-5.2) L 01/25/23 16:27 Globulin 3.4 g/dL (1.3-4.6) 01/25/23 16:27 Urine Color Yellow (Yellow) 01/25/23 17:44 Urine Appearance Clear (CLEAR) 01/25/23 17:44 Urine pH 5 (5-7) 01/25/23 17:44 Ur Specific [place] 1.005 (1.005-1.030) 01/25/23 17:44 Urine Protein Neg (Negative) 01/25/23 17:44 Urine Glucose (UA) Norm (Normal) 01/25/23 17:44 Urine Ketones Negative (Negative) 01/25/23 17:44 Urine Blood Neg (Negative) 01/25/23 17:44 Urine Nitrate Positive (Negative) H 01/25/23 17:44 Urine Bilirubin Neg (Negative) 01/25/23 17:44 Urine Urobilinogen Norm mg/dL (Negative) 01/25/23 17:44 Ur Leukocyte Esterase Negative (Negative) 01/25/23 17:44 Urine RBC 0-4 /hpf (0-2) H 01/25/23 17:44 Urine WBC 0-4 /hpf (0-5) H 01/25/23 17:44 Ur Squamous Epith Cells 0-4 /hpf (0-5) H 01/25/23 17:44 Amorphous Sediment Not Reportable 01/25/23 17:44 Urine Bacteria 2+ /hpf (NONE) H 01/25/23 17:44 Hyaline Casts 0-4 /lpf H 01/25/23 17:44 EKG Data EKG 1: I personally reviewed and interpreted this EKG as follows: EKG interpretation date: 01/25/23 EKG interpretation time: 17:05 Interpretation: sinus sunitha hr [address] or t wave abnormalities qrs 105 qtc 443 Discharge Plan Discharge Patient Disposition: Home Admit Provider: Mihir Garcia Clinical Impression: Syncope, Hypotension, Acute cystitis, Ankle fracture, right Condition: Stable Coding Level of Care Code ED [employer] 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
[2023-01-25 17:42] LABS: Troponin(5th) Baseline 41 ng/L (0-10)
[2023-01-25 17:46] LABS: Alanine Aminotransferase 23 U/L (0-33); Albumin Level 2.5 g/dL (3.5-5.2); Alkaline Phosphatase 87 U/L (35-105); Anion Gap 15.9 (5-19); Aspartate Amino Transferase 39 U/L (0-32); Blood Urea Nitrogen 11 mg/dL (8-23); Calcium 8.1 mg/dL (8.5-10.5); Carbon Dioxide 24 mmol/L (22-29); Chloride 102 mmol/L (98-107); Globulin 3.4 g/dL (1.3-4.6); Glomerular Filtration Rate 49.5 mL/min (90-130); Glucose 113 mg/dL (65-115); Osmolality Calculated 286 mOsm/kg (285-295); Potassium 3.9 mmol/L (3.5-5.1); Sodium 138 mmol/L (136-145); Total Bilirubin 0.6 mg/dL (0.15-1.2); Total Protein 5.9 g/dL (6.6-8.7)
[2023-01-25 18:06] LABS: Lactic Sepsis W/Reflex 2.4 mmol/L (0.5-2.2)
[2023-01-25 18:14] LABS: Add Urine Microscopic? YES; Bilirubin Urine Neg (Negative); Blood Urine Neg (Negative); Glucose Urine UA Norm (Normal); Ketones Urine Negative (Negative); Leukocyte Esterase Urine Negative (Negative); Nitrate Urine Positive (Negative); Protein Urine Neg (Negative); Specific Gravity, Urine 1.005 (1.005-1.030); Urine Appearance Clear (CLEAR); Urine Color Yellow (Yellow); Urobilinogen Urine Norm (Negative); pH Urine 5 (5-7)
[2023-01-25 18:15] LABS: Bacteria Urine 2+ /hpf; RBC Urine 0-4 /hpf (0-2); Squamous Epithelial Cell Urine 0-4 /hpf (0-5); WBC Urine 0-4 /hpf (0-5)
[2023-01-25 18:16] LABS: Add Urine Culture? Yes; Hyaline Casts Urine 0-4 /lpf
[2023-01-25 19:04] LABS: Troponin 5 2HR 36.78 ng/L (0-10)
[2023-01-25 19:17] LABS: Reflex Lactate Order REFLEX LACTIC ORDERD
[2023-01-25] MEDS: ondansetron 2 mg/ML SDV 2 mL 4 MG IVP (19:41)
[2023-01-25] MEDS: morphine 4 mg/mL SDV 1 mL IVP (19:41)
--- NOTE | 2023-01-25 20:08 | PM.HP ---
Providers/Chief Complaint Admitting Physician: Mihir Garcia MD Primary Care Provider: Doug Allen DO Chief Complaint: syncopal epidsoe History of Present Illness Peri Cid is a 67 year old female with a past medical history significant for type 2 diabetes mellitus, neuropathy, hypothyroidism, insomnia, COPD, obesity, hypertension, sleep apnea, and coronary artery disease who presents to the emergency department with syncope that occurred about 4 hours prior to arrival to the emergency department. Patient states she was in her usual state of health when she got out of bed and became lightheaded and passed out. She does endorse right ankle pain. She currently rates it about a 6 out of 10. Reports movement makes pain worse. Rest improves pain. Denies other alleviating or aggravating factors. Patient does note that she did take tizanidine and tramadol prior to going to sleep which she thinks may have made her lightheaded. In the ED, patient was found to have soft blood pressure. Labs reveal urinary tract infection. Imaging revealed a right distal tib-fib fracture. Review of Systems Narrative: A complete review of systems was obtained and is negative except as stated in HPI. Medications/Allergies Home Medications Medication Instructions Recorded Confirmed Last Taken Type ascorbic acid (vitamin C) 500 mg 500 mg PO DAILY 08/13/19 01/22/23 05/27/22 History tablet (Vitamin C) albuterol sulfate 90 mcg/actuation 2 puff inhalation Q6H PRN 11/29/20 01/22/23 Unknown History aerosol inhaler Shortness Of Breath albuterol sulfate 2.5 mg/3 mL 2.5 mg inhalation Q6H PRN 12/05/21 01/22/23 Unknown History (0.083 %) solution for nebulization Shortness Of Breath methenamine hippurate 1 gram tablet See Rx Instructions .Route 12/11/21 01/22/23 05/28/22 Rx .COMPLEX #60 tabs amitriptyline 50 mg tablet 50 mg PO BEDTIME #90 tabs 06/11/22 01/22/23 Unknown Rx fluticasone propionate 50 2 spray intranasal DAILY PRN 06/11/22 01/22/23 Unknown Rx mcg/actuation nasal Allergy Symptoms #16 grams spray,suspension (Flonase Allergy Relief) furosemide 40 mg tablet 40 mg PO Q48H #90 tabs 06/11/22 01/22/23 Unknown Rx lansoprazole 30 mg capsule,delayed 30 mg PO DAILY #90 caps 06/11/22 01/22/23 Unknown Rx release mirtazapine 30 mg tablet 30 mg PO BEDTIME #90 tabs 06/11/22 01/22/23 Unknown Rx rosuvastatin 10 mg tablet 10 mg PO BEDTIME #90 tabs 06/11/22 01/22/23 Unknown Rx Diabetic Shoes with 3 Inserts #1 ea 07/10/22 01/22/23 Unknown Rx enalapril maleate 2.5 mg tablet 2.5 mg PO DAILY #90 tabs 10/08/22 01/22/23 Unknown Rx calcitriol 0.25 mcg capsule 0.25 mcg PO DIRECTED 10/15/22 01/22/23 Unknown History clopidogrel 75 mg tablet 75 mg PO DAILY #90 tabs 10/15/22 01/22/23 Unknown Rx gabapentin 300 mg capsule 600 mg PO TID 10/15/22 01/22/23 Unknown History nystatin 100,000 unit/mL oral 5 ml PO QID 10 days #200 mL 10/17/22 01/22/23 Unknown Rx suspension levothyroxine 112 mcg tablet See Rx Instructions .Route 12/11/22 01/22/23 Unknown Rx .COMPLEX #90 tabs tramadol 50 mg tablet 50 mg PO BID PRN Pain #60 tabs 01/01/23 01/22/23 Unknown Rx metoprolol succinate 25 mg 25 mg PO BEDTIME #90 tabs 01/07/23 01/22/23 Unknown Rx tablet,extended release 24 hr tizanidine 4 mg tablet See Rx Instructions .Route 01/23/23 Unknown Rx .COMPLEX #60 tabs apixaban 5 mg tablet (Eliquis) 5 mg PO BID #180 tabs 01/24/23 Unknown Rx nitroglycerin 0.4 mg sublingual 0.4 mg sublingual Q5M PRN Chest 01/24/23 Unknown Rx tablet (Nitrostat) Pain #25 tabs Allergies Allergy/AdvReac Type Severity Reaction Status Date / Time hepatitis B immune globulin Allergy Unknown Unknown Verified 01/22/23 14:43 PFSH Acute PFSH: Medical History (Updated 01/25/23 @ 23:44 by Mihir Garcia MD) ASHD (arteriosclerotic heart disease) CHF (congestive heart failure) Chronic kidney disease Chronic rhinosinusitis CKD (chronic kidney disease) COPD (chronic obstructive pulmonary disease) Coronary artery disease 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, managed as type 2 Diabetic neuropathy Diabetic peripheral neuropathy associated with type 2 diabetes mellitus Fall with injury Family history of colon cancer requiring screening colonoscopy GERD (gastroesophageal reflux disease) Head injury due to trauma HTN (hypertension) Hyperlipidemia Hypotension Insomnia Myocardial infarction Neck injury Nonscarring hair loss Obesity EDNA (obstructive sleep apnea) Pain associated with defecation Recurrent UTI Renal calculus, left treated with ESWL with resolution S/P extracorporeal shock wave therapy Secondary hyperparathyroidism of renal origin Tobacco abuse Urolithiasis Surgical History H/O bariatric surgery S/P angioplasty with stent Family History Mother , at age 86 CAD (coronary artery disease) Diabetes Myocardial infarction Hypertension Father , AGE 72 Diabetes CAD (coronary artery disease) Cancer LUNG Brother Diabetes CAD (coronary artery disease) Hypertension Sister Diabetes Social History Smoking and tobacco status: current every day smoker cigarettes Alcohol intake: never Adopted: No Caregiver/support person: No Marital status: Legally Current occupational status: retired and disabled Current gender identity: Female Female Reproductive History: Spontaneous abortions: No Vitals/I&O/Wt Last Vital Signs Temp 98.3 F 01/25/23 16:47 Pulse 54 L 01/25/23 18:50 Resp 18 01/25/23 19:41 BP 99/59 01/25/23 18:50 Pulse Ox 98 01/25/23 18:50 O2 Del Method Room Air 01/25/23 17:18 O2 Flow Rate 2 01/25/23 16:47 01/25/23 01/25/23 01/25/23 06:59 14:59 22:59 Intake Total 1466.2 / 1466.2 Balance 1466.2 / 1466.2 Weight last 48 hrs Weight 86.183 kg Physical Exam Narrative: General: Patient is awake. Frail appearing. Head: Normocephalic. Atraumatic. EOM intact. Neck: No JVD. Cardiovascular: RRR. No gallops. No murmurs. Lungs: Clear to auscultation, no use of accessory muscles, no crackles or wheezes. Skin: No jaundice. No rashes. Abdomen: Normal bowel sounds, abdomen soft and nontender. Extremities: No cyanosis or clubbing. Right ankle is tender to palpation. Neurological: Moves all 4 extremities. No myoclonus. Data 01/25/23 16:27 01/25/23 16:27 A&P Assessment and plan (1) Syncope: Syncope likely medication induced versus orthostasis Avoid polypharmacy Monitor blood pressure closely Holding some antihypertensives given soft blood pressure Fall precautions Supportive care (2) Hypotension: Does not clinically appear septic Received 1 L of IV fluids in the ED Hold antihypertensives for now May use additional fluids if needed (3) Acute cystitis: Urine culture Start Rocephin (4) Ankle fracture, right: Orthopedic surgery consulted, appreciate recommendations Multimodal pain control Hold apixaban and Plavix pending surgery evaluation N.p.o. pending surgical evaluation (5) Hyperlipidemia: Continue statin Qualifiers: Hyperlipidemia type: unspecified Qualified Code(s): E78.5 - Hyperlipidemia, unspecified (6) Acquired hypothyroidism: Continue Synthroid (7) Type 2 diabetes mellitus with diabetic nephropathy: Does not appear to be on pharmacological treatment Monitor blood sugar levels Plan DVT prophylaxis: SCD CODE STATUS: Full code Attestations Medical Necessity Statement*: Patient presents with syncope likely secondary to medication versus orthostasis with subsequent right tib-fib fracture with expected hospitalization not to cross 2 midnights. Coding Level of Care Code Acute Code for Chg Fwd Diagnoses Syncope R55 Hypotension I95.9 Acute cystitis N30.00 Ankle fracture, right S82.891A Hyperlipidemia E78.5 Hyperlipidemia type: unspecified Acquired hypothyroidism E03.9 Type 2 diabetes mellitus with diabetic nephropathy E11.21
[2023-01-25 20:22] LABS: Lactic Acid level (Lactate) 1.8 mmol/L (0.5-2.2)
[2023-01-25] MEDS: cefTRIAXone 1,000 MG in sodium chloride 0.9% (plus) 50 ML 100 MG IV (20:26)
--- NOTE | 2023-01-25 21:20 | CTR_ITS ---
PROCEDURE INFORMATION: Exam: CT Right Lower Extremity Without Contrast, Ankle Exam date and time: 01/26/2023 3:40 AM Age: 67 years old Clinical indication: Injury or trauma; Fracture, traumatic; Displaced; Fibula and tibia; Right; Patient HX: RT ankle fracture due to fall. ; Additional info: Ankle FX TECHNIQUE: Imaging protocol: CT of the right lower extremity without contrast was performed. Exam focused on the ankle. Radiation optimization: All CT scans at this facility use at least one of these dose optimization techniques: automated exposure control; mA and/or kV adjustment per patient size (includes targeted exams where dose is matched to clinical indication); or iterative reconstruction. REPORTING DATA: Count of CT and Cardiac NM exams in prior 12 months: This patient has received 5 known CTs and 0 known cardiac nuclear medicine studies in the 12 months prior to the current study. COMPARISON: CR (LOW EXM, ) 01/25/2023 5:28 PM RADIATION DOSE METRICS: Total DLP (mGy-cm): 171.06 FINDINGS: Bones/joints: Comminuted fracture of the distal fibula/lateral malleolus with extension to the tibiofibular syndesmosis and ankle mortise. Comminuted distal tibial medial malleolar fracture. Distal tibial posterior malleolar fracture. Fractures of the anterolateral distal portion of the tibia. Mild malalignment of the ankle mortise. Small calcaneal plantar and Achilles enthesophytes. Soft tissues: Mild soft tissue swelling. CT/CT ankle RT wo con* [id number] IMPRESSION: 1. Trimalleolar fractures. 2. Additional fractures of the anterolateral distal tibia.
[2023-01-25] MEDS: atorvastatin 40 mg Tablet PO (21:42)
[2023-01-25] MEDS: ibuprofen 200 mg Tablet 400 MG PO (21:42)
[2023-01-25] MEDS: gabapentin 300 mg Capsule 600 MG PO (21:42)
[2023-01-25] MEDS: sennosides 8.6 mg Tablet 17.2 MG PO (21:42)
[2023-01-25 21:49] LABS: Estmated Average Glucose 105; Hemoglobin A1C 5.3 % (4.0-6.0)
[2023-01-25] MEDS: morphine 4 mg/mL SDV 1 mL 2 MG IVP (21:51)
--- NOTE | 2023-01-25 22:55 | ECG_ITS ---
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 Measurements Intervals [place] Rate: 82 P: 54 NC: 157 QRS: -32 QRSD: 109 T: 56 QT: 377 QTc: 440 Interpretive Statements SINUS RHYTHM LEFT AXIS DEVIATION [QRS AXIS < -30] LOW QRS VOLTAGE IN EXTREMITY LEADS [QRS DEFLECTION < 0.5 mV IN LIMB LEADS] PROBABLE LATERAL MYOCARDIAL INFARCTION , PROBABLY OLD [35 ms Q WAVE IN I/aVL/V5/V6] Compared to ECG 01/25/2023 17:05:59 Left-axis deviation now present Low QRS voltage now present Sinus bradycardia no longer present Myocardial infarct finding still present Electronically Signed On 01-26-2023 13:13:08 CDT by Taylor Grande M.D. [id number]
[2023-01-25 23:12] LABS: Troponin 5 6HR 37.17 ng/L (0-10)
[2023-01-25 23:13] LABS: Troponin 5 6HR Delta -3.83 ng/L (0-12)
--- NOTE | 2023-01-25 23:35 | PM.CONSULT ---
Providers/Reason For Consult Consulting Physician/Specialty*: Dao Hallman DO/orthopedic surgery Reason for Consult*: Right ankle fracture Requesting Physician: Dr. Ellen Fong Attending Physician: Mihir Garcia MD Primary Care Provider: Doug Allen DO History of Present Illness History of Present Illness Peri Cid is a 67 year old female with a past medical history significant for type 2 diabetes mellitus, neuropathy, hypothyroidism, insomnia, COPD, obesity, hypertension, sleep apnea, and coronary artery disease who presents to the emergency department with syncope that occurred about 4 hours prior to arrival to the emergency department.? Patient states she was in her usual state of health when she got out of bed and became lightheaded and passed out.? She does endorse right ankle pain.? She currently rates it about a 6 out of 10.? Reports movement makes pain worse.? Rest improves pain.? Denies other alleviating or aggravating factors.? Patient does note that she did take tizanidine and tramadol prior to going to sleep which she thinks may have made her lightheaded. Orthopedics was consulted for evaluation and treatment recommendations of patient's right ankle fracture. Patient has seen Dr. Hubbard in the past and at this point in time is a controlled diabetic she follows him for diabetic foot care. She expressed if possible she would like to have this fixed with him if it does not need to be done emergent. Review of Systems General: Reports: 10 or more systems reviewed and unremarkable except in HPI and below Medications/Allergies Home Medications Medication Instructions Recorded Confirmed Last Taken Type ascorbic acid (vitamin C) 500 mg 500 mg PO DAILY 08/13/19 01/22/23 05/27/22 History tablet (Vitamin C) albuterol sulfate 90 mcg/actuation 2 puff inhalation Q6H PRN 11/29/20 01/22/23 Unknown History aerosol inhaler Shortness Of Breath albuterol sulfate 2.5 mg/3 mL 2.5 mg inhalation Q6H PRN 12/05/21 01/22/23 Unknown History (0.083 %) solution for nebulization Shortness Of Breath methenamine hippurate 1 gram tablet See Rx Instructions .Route 12/11/21 01/22/23 05/28/22 Rx .COMPLEX #60 tabs amitriptyline 50 mg tablet 50 mg PO BEDTIME #90 tabs 06/11/22 01/22/23 Unknown Rx fluticasone propionate 50 2 spray intranasal DAILY PRN 06/11/22 01/22/23 Unknown Rx mcg/actuation nasal Allergy Symptoms #16 grams spray,suspension (Flonase Allergy Relief) furosemide 40 mg tablet 40 mg PO Q48H #90 tabs 06/11/22 01/22/23 Unknown Rx lansoprazole 30 mg capsule,delayed 30 mg PO DAILY #90 caps 06/11/22 01/22/23 Unknown Rx release mirtazapine 30 mg tablet 30 mg PO BEDTIME #90 tabs 06/11/22 01/22/23 Unknown Rx rosuvastatin 10 mg tablet 10 mg PO BEDTIME #90 tabs 06/11/22 01/22/23 Unknown Rx Diabetic Shoes with 3 Inserts #1 ea 07/10/22 01/22/23 Unknown Rx enalapril maleate 2.5 mg tablet 2.5 mg PO DAILY #90 tabs 10/08/22 01/22/23 Unknown Rx calcitriol 0.25 mcg capsule 0.25 mcg PO DIRECTED 10/15/22 01/22/23 Unknown History clopidogrel 75 mg tablet 75 mg PO DAILY #90 tabs 10/15/22 01/22/23 Unknown Rx gabapentin 300 mg capsule 600 mg PO TID 10/15/22 01/22/23 Unknown History nystatin 100,000 unit/mL oral 5 ml PO QID 10 days #200 mL 10/17/22 01/22/23 Unknown Rx suspension levothyroxine 112 mcg tablet See Rx Instructions .Route 12/11/22 01/22/23 Unknown Rx .COMPLEX #90 tabs tramadol 50 mg tablet 50 mg PO BID PRN Pain #60 tabs 01/01/23 01/22/23 Unknown Rx metoprolol succinate 25 mg 25 mg PO BEDTIME #90 tabs 01/07/23 01/22/23 Unknown Rx tablet,extended release 24 hr tizanidine 4 mg tablet See Rx Instructions .Route 01/23/23 Unknown Rx .COMPLEX #60 tabs apixaban 5 mg tablet (Eliquis) 5 mg PO BID #180 tabs 01/24/23 Unknown Rx nitroglycerin 0.4 mg sublingual 0.4 mg sublingual Q5M PRN Chest 01/24/23 Unknown Rx tablet (Nitrostat) Pain #25 tabs Allergies Allergy/AdvReac Type Severity Reaction Status Date / Time hepatitis B immune globulin Allergy Unknown Unknown Verified 01/22/23 14:43 Current Medications Generic Name Dose Route Start Last Admin Trade Name Jeffrey PRN Reason Stop Dose Admin Atorvastatin Calcium 40 mg 01/25/23 21:00 01/25/23 21:42 Atorvastatin 40 Mg Tablet PO 40 mg BEDTIME CICI Administration Gabapentin 600 mg 01/25/23 21:00 01/25/23 21:42 Gabapentin 300 Mg Capsule PO 600 mg TID CICI Administration Ibuprofen 400 mg 01/25/23 21:17 01/25/23 21:42 Ibuprofen 200 Mg Tablet PO 400 mg Q6H PRN Administration Mild/Mod Pain Or Temp >/= 101 Metoprolol Succinate 25 mg 01/25/23 21:00 01/25/23 21:54 Metoprolol Succinate Er (24 Hr) 25 Mg Tablet PO Not Given BEDTIME CICI Morphine Sulfate 2 mg 01/25/23 21:44 01/25/23 21:51 Morphine 4 Mg/Ml Sdv 1 Ml IVP 2 mg Q4H PRN Administration SEVERE PAIN Senna 17.2 mg 01/25/23 21:17 01/25/23 21:42 Sennosides 8.6 Mg Tablet PO 17.2 mg BEDTIME CICI Administration PFSH Acute PFSH: Medical History (Updated 01/25/23 @ 23:44 by Mihir Garcia MD) ASHD (arteriosclerotic heart disease) CHF (congestive heart failure) Chronic kidney disease Chronic rhinosinusitis CKD (chronic kidney disease) COPD (chronic obstructive pulmonary disease) Coronary artery disease 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, managed as type 2 Diabetic neuropathy Diabetic peripheral neuropathy associated with type 2 diabetes mellitus Fall with injury Family history of colon cancer requiring screening colonoscopy GERD (gastroesophageal reflux disease) Head injury due to trauma HTN (hypertension) Hyperlipidemia Hypotension Insomnia Myocardial infarction Neck injury Nonscarring hair loss Obesity EDNA (obstructive sleep apnea) Pain associated with defecation Recurrent UTI Renal calculus, left treated with ESWL with resolution S/P extracorporeal shock wave therapy Secondary hyperparathyroidism of renal origin Tobacco abuse Urolithiasis Surgical History H/O bariatric surgery S/P angioplasty with stent Family History Mother , at age 86 CAD (coronary artery disease) Diabetes Myocardial infarction Hypertension Father , AGE 72 Diabetes CAD (coronary artery disease) Cancer LUNG Brother Diabetes CAD (coronary artery disease) Hypertension Sister Diabetes Social History Smoking and tobacco status: current every day smoker cigarettes Alcohol intake: never Adopted: No Caregiver/support person: No Marital status: Legally Current occupational status: retired and disabled Current gender identity: Female Female Reproductive History: Spontaneous abortions: No Vitals/I&O/Wt Last Vital Signs Temp 98.3 F 01/25/23 16:47 Pulse 83 01/25/23 22:46 Resp 16 01/25/23 22:46 BP 91/74 01/25/23 20:48 Pulse Ox 94 01/25/23 22:46 O2 Del Method Room Air 01/25/23 22:46 O2 Flow Rate 2 01/25/23 22:46 01/25/23 01/25/23 01/26/23 14:59 22:59 06:59 Intake Total 2516.2 / 2516.2 Balance 2516.2 / 2516.2 Weight last 48 hrs Weight 190 lb Physical Exam Narrative: Orthopedic examination: Examination of the right lower extremity demonstrates splint on in place to the right lower extremity no tenderness to palpation of the right knee or right hip. She has tenderness to palpation about the right ankle but splint is not taken down given trimalleolar unstable ankle fracture. Her toes are warm and well-perfused distal pulses are palpable she has brisk capillary refill less than 3 seconds. She does have diffuse decrease sensation to the foot/toes given her neuropathy in a nonspecific dermatomal distribution splint limits the rest of the examination. Secondary survey examination demonstrates no tenderness to palpation of the bilateral shoulders elbows wrist and hands with normal range of motion and gross motor and sensation intact in the bilateral upper extremities. No tenderness to palpation along the spine. Negative logroll to the bilateral lower extremities. No tenderness to palpation of the left hip knee tibia and foot and ankle. Data 01/25/23 16:27 01/25/23 16:27 Micro: Microbiology 01/25/23 19:58 Blood Culture - Preliminary Blood SPECIMEN COLLECTED 01/25/23 19:50 Blood Culture - Preliminary Blood SPECIMEN COLLECTED Xray Ortho: My impression: X-rays multiple views of the right ankle reviewed in person interpreted by myself demonstrating a comminuted appears to be trimalleolar ankle fracture joint appears to be located. Would recommend CT scan for fracture distinction and preoperative planning for later surgical intervention A&P Assessment and plan (1) Ankle fracture, right: (2) Type 2 diabetes mellitus with diabetic nephropathy: Plan Right lower extremity splinted Nonweightbearing right lower extremity Elevation and ice Pain control Internal medicine on board as primary Detailed discussion with patient she follows with Dr. Hubbard and she would like to have him fix this if possible. This is a nonemergent injury however this could be fixed during this hospitalization given its acuity and minimal swelling. Plan will be to replace patient in a well-padded AO splint in the a.m. and plan for orthopedics to sign off. She is n.p.o. at midnight just in case Recommend CT scan for the right ankle for preoperative planning Consult Attestations Medical Necessity Statement: Right trimalleolar ankle fracture in a diabetic Coding Level of Care Code Acute Code for [facility] Diagnoses Ankle fracture, right S82.891A Type 2 diabetes mellitus with diabetic nephropathy E11.21 Time Spent (min) 35
--- NOTE | 2023-01-25 23:53 | PC.NURSE ---
Dr. Hallman came to see pt. Pt sees Dr. Hubbard in clinic regularly for her diabetic neuropathy. Decision was made for pt to see Dr. Hubbard outpatient next week. If Dr. Hubbard is unable to see pt or fix the ankle, Dr. Hallman will do the surgery. Pt taken off NPO.
[2023-01-26] VITALS (46 sets, daily range): BP systolic 84–149; BP diastolic 49–92; PULSE 74–106; RESP 7–29; TEMP 36.2–36.8; O2SAT 84–100
[2023-01-26] MEDS: morphine 4 mg/mL SDV 1 mL 2 MG IVP ×2 (01:19→06:57)
--- NOTE | 2023-01-26 08:10 | P.PN_ITS ---
Subjective Subjective: Reports that pain is pretty well controlled today. She did get a visit with ortho this morning and says they are planning for surgery later today. Daughter is present today and able to assist with patient needs and paperwork. Vitals/I&O/Wt Last Vital Signs Temp 98.3 F 01/25/23 16:47 Pulse 85 01/26/23 06:30 Resp 22 H 01/26/23 06:57 BP 94/59 01/26/23 06:00 Pulse Ox 93 01/26/23 06:57 O2 Del Method Room Air 01/25/23 22:46 O2 Flow Rate 2 01/25/23 22:46 01/25/23 01/26/23 01/26/23 22:59 06:59 14:59 Intake Total 2516.2 / 2516.2 0 / 2516.2 Balance 2516.2 / 2516.2 0 / 2516.2 Weight last 48 hrs Weight 190 lb Physical Exam Narrative: General: Patient is awake, alert, no distress. Head: Normocephalic. Atraumatic. EOM intact. Cardiovascular: RRR. No gallops. No murmurs. Lungs: Clear to auscultation, no use of accessory muscles, no crackles or wheezes. Skin: No jaundice. No rashes. Right leg is wrapped in Surya bandage. Abdomen: Soft, nontender, nondistended. Normal bowel sounds. Extremities: No edema or cyanosis. Small hematoma on left great toe. Neurological: No focal motor or sensory loss. Alert and oriented x4. Data 01/25/23 16:27 01/25/23 16:27 Micro: Microbiology 01/25/23 19:58 Blood Culture - Preliminary Blood SPECIMEN COLLECTED 01/25/23 19:50 Blood Culture - Preliminary Blood SPECIMEN COLLECTED A&P Assessment and plan (1) Syncope: Syncope likely medication induced versus orthostasis Avoid polypharmacy Monitor blood pressure closely Holding some antihypertensives given soft blood pressure Fall precautions Supportive care (2) Hypotension: Does not clinically appear septic Received 1 L of IV fluids in the ED Continue to hold antihypertensives for now. (3) Acute cystitis: Continue Rocephin. (4) Ankle fracture, right: Orthopedic surgery consulted, appreciate recommendations Multimodal pain control Hold apixaban and Plavix pending surgery evaluation N.p.o. pending surgical evaluation (5) Hyperlipidemia: Continue statin Qualifiers: Hyperlipidemia type: unspecified Qualified Code(s): E78.5 - Hyperlipidemia, unspecified (6) Acquired hypothyroidism: Continue Synthroid (7) Type 2 diabetes mellitus with diabetic nephropathy: Continue to monitor blood sugars. Plan Plan for surgery today. Pain is currently well controlled. We will review antihypertensives. Incentive spirometry. We will review antihypertensive medications. Blood and urine cultures are still pending. Continue Rocephin for now. Code Status: Full code IVF: None DVT PPx: SCDs GI PPx: Protonix ABx: Rocephin Diet: N.p.o. currently Discharge plan: Home when appropriate. Attestations Medical Necessity Statement*: Patient will need continued inpatient care and monitoring due to right tib-fib fracture with plan for surgery. Coding Level of Care Code Acute Code for [facility] Moderate MDM includes number and complexity of problems actively addressed d uring encounter, amount and/or complexity of data reviewed/ordered and described risk of complication, morbidity or mortality of management as documented Diagnoses Syncope R55 Hypotension I95.9 Acute cystitis N30.00 Ankle fracture, right S82.891A Hyperlipidemia E78.5 Hyperlipidemia type: unspecified Acquired hypothyroidism E03.9 Type 2 diabetes mellitus with diabetic nephropathy E11.21 Time Spent (min) 30
--- NOTE | 2023-01-26 08:48 | P.PN_ITS ---
Subjective Subjective: Patient seen and examined this morning: Orthopedics was called early this morning states that overnight patient changed her mind and would like to have this fixed as soon as possible and she did not care who fixed it. As result she came in this morning to round and evaluate patient. Splint subsequently taken down her soft tissue envelope is amendable for surgical intervention as she has a positive wrinkle sign. We talked about her treatment options in detail we talked about her risks with surgical intervention given she is a diabetic but her A1c is controlled at 5.3. We did talk about augmenting with extra fixation just given her diabetic neuropathy. She understands that at this point time would like to pursue surgical fixation during this hospitalization. She has been n.p.o. since midnight. We will get her added onto the surgery schedule today Vitals/I&O/Wt Last Vital Signs Temp 98.3 F 01/25/23 16:47 Pulse 90 01/26/23 08:00 Resp 19 H 01/26/23 08:00 BP 90/77 01/26/23 08:00 Pulse Ox 84 L 01/26/23 08:00 O2 Del Method Room Air 01/25/23 22:46 O2 Flow Rate 2 01/25/23 22:46 01/25/23 01/26/23 01/26/23 22:59 06:59 14:59 Intake Total 2516.2 / 2516.2 0 / 2516.2 Balance 2516.2 / 2516.2 0 / 2516.2 Weight last 48 hrs Weight 190 lb Physical Exam Narrative: Examination right lower extremity: Splint on in place subsequently taken down soft tissue envelope inspected no open wounds noted. Patient has tenderness palpation diffusely about the right ankle with most significant tenderness palpation over the medial and lateral malleolus as well as posterior malleolus. She is able to wiggle her toes with minimal plantarflexion or dorsiflexion secondary to pain. She has diabetic neuropathy with decreased sensation diffusely around the foot. Distal pulses are palpable. She does have a positive wrinkle sign demonstrating's minimal swelling and amenability for surgical intervention today. Data 01/25/23 16:27 01/25/23 16:27 Micro: Microbiology 01/25/23 19:58 Blood Culture - Preliminary Blood SPECIMEN COLLECTED 01/25/23 19:50 Blood Culture - Preliminary Blood SPECIMEN COLLECTED Xray Ortho: My impression: Review of patient's CT scan demonstrates a trimalleolar ankle fracture. Patient has significant comminution of the medial and lateral malleolus there is a small fragment of the anterior lateral aspect of the tibia as well as a small posterior malleolus fragment. The knee at the posterior malleolus this appears that this can be fixed indirectly by quad cortical fixation across the syndesmosis this fragment is small in nature and accounts for less than 5% of the ankle joint and I feel as though there is no surgical benefit approaching this posterior lateral for fixation given she is a diabetic and more potential for wound complications. A&P Assessment and plan (1) Ankle fracture, right: (2) Type 2 diabetes mellitus with diabetic nephropathy: Plan Right lower extremity splinted, splint taken down and positive wrinkle sign amenable for surgical intervention Nonweightbearing right lower extremity Elevation and ice Pain control Internal medicine on board as primary Patient's been n.p.o. since midnight. She would like to proceed with surgical intervention during this hospitalization to get this addressed as soon as possible. We talked about the risk benefits complication alternatives with shakira shelby given this is a trimalleolar ankle fracture she understands the inherent instability of this injury and my recommendation would be for surgical intervention. However in this patient she does have inherent risks given her diabetic neuropathy we talked about this in detail risks of infection, making it better making it worse blood clot, heart attack, stroke, on the table, hardware failure and wound complications. Understanding these risks with surgery she elects to proceed with surgical intervention all questions have been answered at this time we will proceed with right trimalleolar ankle fracture ORIF. All questions been answered. Attestations Medical Necessity Statement*: Right trimalleolar ankle fracture in a diabetic Coding Level of Care Code Acute Code for [facility] Fwd Diagnoses Ankle fracture, right S82.891A Type 2 diabetes mellitus with diabetic nephropathy E11.21 Time Spent (min) 30
--- NOTE | 2023-01-26 08:54 | W.PM.OPSUD ---
Surgery/Procedure H&P Update DATE OF PROCEDURE: January 26, 2023 DATE H&P PERFORMED: 01/25/23 CHANGES TO PREVIOUS DOCUMENTATION: No changes in HPI from initial consult visit and progress note today patient at this point time is wanting to have surgical intervention during this hospitalization her soft tissue envelope is amenable to surgical intervention. We will proceed with a right trimalleolar ankle fracture ORIF today. All questions answered. PREOP DIAGNOSIS: Right trimalleolar ankle fracture PRIMARY INDICATION FOR PROCEDURE: Right trimalleolar ankle fracture PLANNED PROCEDURE: Operation Date: 01/26/23 10:05 Proposed Procedures p ORIF Ankle(Right) - Dao Hallman DO
--- NOTE | 2023-01-26 09:13 | PC.NURSE ---
ortho here exam right foot ice applied to area
--- NOTE | 2023-01-26 09:34 | PC.PHAR ---
PT STATES HER DAUGHTER KRISS TAKES CARE OF HER MEDICATIONS-PER KRISS PTS DAUGHTER STATES THE PT TAKES THE MEDICATIONS ENTERED-PTS DAUGHTER STATES THE PT TAKES METHENAMINE 1G QAM RX FILLED FOR 12/10/22 30D/S 1G BID-NOTES ARE MADE IN THE PHARMACY COMMENTS
--- NOTE | 2023-01-26 09:59 | PC.NURSE ---
surgery here taken to or for repair on right ankle
--- NOTE | 2023-01-26 10:17 | P.ANESASSM_ITS ---
Pre-Anesthetic Assessment Height/Weight: Height 1.63 m Weight 86.183 kg Temp Pulse Resp BP Pulse Ox O2 Del Method O2 Flow Rate 98.3 F 83 18 90/77 99 Nasal Cannula 3 01/25/23 16:47 01/26/23 09:34 01/26/23 09:34 01/26/23 08:00 01/26/23 09:34 01/26/23 09:34 01/26/23 09:34 Preop Diagnosis: Right trimalleolar ankle fracture Operation Date: 01/26/23 10:05 Proposed Procedures p ORIF Ankle(Right) - Dao Viji, DO Was Beta Karen taken within 24 hours: Yes Social Tobacco and No alcohol 1 ppd x 48 years pack(s) per day Exam alert, oriented x 3 and regular rate & rhythm diminished BS with prolonged/active expiratory phase Airway Submandibular: within normal limits Cervical ROM: within normal limits Mallampati: Class I Dentition: false Pulmonary Chronic Obstructive Pulmonary Disease, Cough, Exertional Dyspnea and Shortness of Breath CV/HEM Coronary Artery Disease, Congestive Heart Failure, Hypertension, Myocardial Infa rction and Peripheral Vascular Disease Chronic Renal Insufficiency GI Gastroesophageal Reflux Disease (well controlled on meds) Metabolic Thyroid Disease [facility] Osteoarthritis/DJD Neuropsych Depression Anesthetic Plan ASA status: 4 Anesthesia: General Other: Avoid regional due to blood thinners Medications/Allergies Home Medications Medication Instructions Recorded Confirmed Last Taken Type ascorbic acid (vitamin C) 500 mg 500 mg PO QAM 08/13/19 01/26/23 05/27/22 History tablet (Vitamin C) albuterol sulfate 90 mcg/actuation 2 puff inhalation Q6H PRN 11/29/20 01/26/23 Unknown History aerosol inhaler Shortness Of Breath albuterol sulfate 2.5 mg/3 mL 2.5 mg inhalation Q6H PRN 12/05/21 01/26/23 Unknown History (0.083 %) solution for nebulization Shortness Of Breath amitriptyline 50 mg tablet 50 mg PO BEDTIME #90 tabs 06/11/22 01/26/23 Unknown Rx fluticasone propionate 50 2 spray intranasal DAILY PRN 06/11/22 01/26/23 Unknown Rx mcg/actuation nasal Allergy Symptoms #16 grams spray,suspension (Flonase Allergy Relief) furosemide 40 mg tablet 40 mg PO Q48H #90 tabs 06/11/22 01/26/23 Unknown Rx mirtazapine 30 mg tablet 30 mg PO BEDTIME #90 tabs 06/11/22 01/26/23 Unknown Rx rosuvastatin 10 mg tablet 10 mg PO BEDTIME #90 tabs 06/11/22 01/26/23 Unknown Rx Diabetic Shoes with 3 Inserts #1 ea 07/10/22 01/26/23 Unknown Rx calcitriol 0.25 mcg capsule 0.25 mcg PO .ON MON,SAT,Sat10/15/22 01/26/23 Unknown History gabapentin 300 mg capsule See Rx Instructions .Route .COMPLEX 10/15/22 01/26/23 Unknown History tramadol 50 mg tablet 50 mg PO BID PRN Pain #60 tabs 01/01/23 01/26/23 Unknown Rx metoprolol succinate 25 mg 25 mg PO BEDTIME #90 tabs 01/07/23 01/26/23 Unknown Rx tablet,extended release 24 hr apixaban 5 mg tablet (Eliquis) 5 mg PO BID #180 tabs 01/24/23 01/26/23 Unknown Rx clopidogrel 75 mg tablet 75 mg PO QAM 01/26/23 01/26/23 Unknown History enalapril maleate 2.5 mg tablet 2.5 mg PO QAM 01/26/23 01/26/23 Unknown History lansoprazole 30 mg capsule,delayed 30 mg PO QA 01/26/23 01/26/23 Unknown History release levothyroxine 112 mcg tablet 112 mcg PO QAM 01/26/23 01/26/23 Unknown History lidocaine-prilocaine 2.5 %-2.5 % See Rx Instructions .Route .COMPLEX 01/26/23 01/26/23 Unknown History topical cream methenamine hippurate 1 gram tablet 1 g PO QAM 01/26/23 01/26/23 Unknown History nitroglycerin 0.4 mg sublingual 0.4 mg sublingual Q5M PRN Chest 01/26/23 01/26/23 Unknown History tablet (Nitrostat) Pain omega-3 acid ethyl esters 1 gram 3 cap PO DAILY 01/26/23 01/26/23 Unknown History capsule tizanidine 4 mg tablet 4 mg PO Q6H PRN Muscle Spasm 01/26/23 01/26/23 Unknown History Allergies Allergy/AdvReac Type Severity Reaction Status Date / Time hepatitis B immune globulin Allergy Unknown Unknown Verified 01/26/23 09:23 [facility] Anesthesia Medical History (Updated 01/25/23 @ 23:44 by Mihir Garcia MD) ASHD (arteriosclerotic heart disease) CHF (congestive heart failure) Chronic kidney disease Chronic rhinosinusitis CKD (chronic kidney disease) COPD (chronic obstructive pulmonary disease) Coronary artery disease 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, managed as type 2 Diabetic neuropathy Diabetic peripheral neuropathy associated with type 2 diabetes mellitus Fall with injury Family history of colon cancer requiring screening colonoscopy GERD (gastroesophageal reflux disease) Head injury due to trauma HTN (hypertension) Hyperlipidemia Hypotension Insomnia Myocardial infarction Neck injury Nonscarring hair loss Obesity EDNA (obstructive sleep apnea) Pain associated with defecation Recurrent UTI Renal calculus, left treated with ESWL with resolution S/P extracorporeal shock wave therapy Secondary hyperparathyroidism of renal origin Tobacco abuse Urolithiasis Surgical History H/O bariatric surgery S/P angioplasty with stent Family History Mother , at age 86 CAD (coronary artery disease) Diabetes Myocardial infarction Hypertension Father , AGE 72 Diabetes CAD (coronary artery disease) Cancer LUNG Brother Diabetes CAD (coronary artery disease) Hypertension Sister Diabetes Social History Smoking and tobacco status: current every day smoker cigarettes Alcohol intake: never Adopted: No Caregiver/support person: No Marital status: Legally Current occupational status: retired and disabled Current gender identity: Female Female Reproductive History Spontaneous abortions: No Data Anesthesia 01/25/23 16:27 01/25/23 16:27 Short CBC 01/25/23 Range/Units 16:27 WBC 8.7 (4.0-10.0) 10^3/uL Hgb 12.6 (11.5-15.3) g/dL Hct 39.2 (37.0-47.0) % MCV 102.6 H (81-99) fl Plt Count 254 (130-400) 10^3/cmm Neut % (Auto) 53.0 % Neut # (Auto) 4.63 (1.8-7.7) 10^3/uL BMP 01/25/23 16:27 Sodium 138 Potassium 3.9 Chloride 102 Carbon Dioxide 24 BUN 11 Creatinine 1.1 H Glucose 113 Calcium 8.1 L Cardiac Enzymes 01/25/23 01/25/23 01/25/23 Range/Units 16:27 18:31 22:35 Troponin T Baseline 41 H (0-10) ng/L Troponin T 120 Minute 36.78 H (0-10) ng/L Delta Troponin T -4.22 L (0-10) ABS# Troponin T Hi Sens 6Hr 37.17 H (0-10) ng/L Troponin T Hi Sens 6Hr Delta -3.83 L (0-12) ng/L Liver Function 01/25/23 Range/Units 16:27 Total Bilirubin 0.6 (0.15-1.2) mg/dL AST 39 H (0-32) U/L ALT 23 (0-33) U/L Alkaline Phosphatase 87 (35-105) U/L Albumin 2.5 L (3.5-5.2) g/dL Urine 01/25/23 Range/Units 17:44 Urine Color Yellow (Yellow) Urine Appearance Clear (CLEAR) Urine pH 5 (5-7) Ur Specific [place] 1.005 (1.005-1.030) Urine Protein Neg (Negative) Urine Glucose (UA) Norm (Normal) Urine Ketones Negative (Negative) Urine Nitrate Positive H (Negative) Urine Bilirubin Neg (Negative) Ur Leukocyte Esterase Negative (Negative) Urine RBC 0-4 H (0-2) /hpf Urine WBC 0-4 H (0-5) /hpf Coags 01/25/23 16:27 PT 17.60 H INR 1.40 H Microbiology 01/25/23 19:58 Blood Culture - Preliminary Blood SPECIMEN COLLECTED 01/25/23 19:50 Blood Culture - Preliminary Blood SPECIMEN COLLECTED Cardiac Studies: Echocardiogram 03/16/21 Echocardiogram Limited Views 03/13/20 Sestamibi Stress Test (Cardiology) 01/24
[2023-01-26] MEDS: ceFAZolin 2,000 MG in sodium chloride 0.9% (plus) 50 ML 100 MG IV ×2 (10:30→17:34)
[2023-01-26] MEDS: vancomycin 1,000 MG SDV 1000 MG XX (11:50)
[2023-01-26] MEDS: ROPivacaine 0.5% SDV 30 mL 150 MG INJECTION (12:04)
--- NOTE | 2023-01-26 12:21 | P.OP_ITS ---
Brief Operative Note Date of procedure: 01/26/23 Pre-op diagnosis: Right trimalleolar ankle fracture Post-op diagnosis: same Procedure Done: Right trimalleolar ankle fracture open reduction internal fixation (medial malleolus fixation, lateral malleolus fixation) Right ankle syndesmotic fixation Right ankle short leg splint application Surgeon: Dao Hallman Estimated blood loss (mL): 15 Complications: None Post-op Plan: Patient taken to PACU in stable condition recovering well will be returning back to ICU postoperatively. Internal medicine on board as primary. Nonweightbearing right lower extremity maintain splint until follow-up. Elevation and ice as needed. PT/OT. Pain control. DVT prophylaxis. Orthop edics will continue to follow on the floor. Condition: stable Disposition: ICU Coding Level of Care Code Acute Code for Detnon Espinoza
--- NOTE | 2023-01-26 12:23 | PM.PACU ---
PACU note Narrative: Patient taken back to ICU postoperatively she is recovering well. Pain is controlled. She is able to wiggle toe. Distal pulse palpable. Brisk capillary refill less than 3 seconds. Decreased sensation at baseline secondary to diabetic neuropathy splint limits the rest of the examination Exam: awake Disposition: back to floor (Back to the ICU)
--- NOTE | 2023-01-26 12:25 | PM.OP ---
Operative Report Date of procedure: January 26, 2023 Pre-op diagnosis: Preop Diagnosis Right trimalleolar ankle fracture Post-op diagnosis: Same with syndesmotic disruption Procedure done: Right trimalleolar ankle fracture open reduction internal fixation Right ankle syndesmotic fixation Implants: Devika 5 hole anatomic distal fibula plate [place]way one third tubular 5 hole plate 4.0 mm x 2 cannulated screws both 55 mm in length Combination use of locking and nonlocking screws 3.5 mm for both plates Surgeon: Dao Hallman DO Estimated blood loss (mL): 15 50 minutes IV fluids: 300 mL Complications: None Findings: See operative report narrative Condition: stable Disposition: ICU Brief History: Patient was presented to the emergency department sustained a fall from a syncopal episode and has a right trimalleolar ankle fracture this was closed in nature she was subsequently mated for syncopal episode orthopedics was consulted she had followed up with Dr. Hubbard in the outpatient setting original plan she wanted this taken care of outpatient however she changed her mind and wanted this fixed while she was here in the hospital she had been medically optimized by the primary team. Her swelling and soft tissue was amendable given this being a trimalleolar unstable ankle fracture would recommend surgical intervention. We talked about the risk benefits complication alternatives with surgery and through shared decision-making patient like to proceed with surgical intervention all questions been answered at this time she is medically optimized and elects to proceed consent obtained to proceed with surgical intervention. Procedure: Patient was seen evaluated in the preoperatively. Consent was reviewed and signed. Correct extremity was marked. Seen evaluated by anesthesia once cleared for surgery was taken back to the operative suite. She then subsequently underwent transport onto the OR table in supine position all bony prominences well-padded patient was brought was secured to the bed she underwent anesthesia per the anesthesia department once appropriately anesthetized the right lower extremity was then prepped and draped in standard orthopedic fashion. Bone foam was applied for positioning as well as a bump under the ipsilateral hip. Final timeout performed. Patient received appropriate preoperative antibiotics. Start incision laterally with a posterior lateral approach to the fibula to allow for appropriate soft tissue envelope. Sharp scalpel incision was made through skin and subcutaneous tissue and then switched to a begum face elevator to elevate the periosteum off the distal fibula distally and then mobilized proximally across fracture site. Fracture site was then encountered I then noted significant comminution with avulsion of the anterior syndesmosis. Significant comminution was noted and it was good to be more amendable for bridge fixation. As result I did open [place] some of the fracture fragments clear this out of fracture hematoma and interposed periosteum to allow for better reduction in fracture healing. I then subsequently selected a [employer] 5 hole anatomic distal fibula plate. Once confirmed this was appropriate position I then well holding the foot in appropriate position and maintaining my fibular length I then subsequently drilled measured and placed a proximal 3.5 mm cortical screw proximal to the fracture site to compress the plate to bone. This showed maintenance of my reduction and then subsequently I then reduced the plate to bone drilling a cortical screw distally into the distal fracture fragment while holding my length of the fibula. This was then subsequently drilled measured and a cortical screw was placed in the distal portion of the plate this showed that I had appropriate spanning of my distal fibula fracture and the distal fibular fracture was near anatomic reduction with bridge plating technique and appropriate fibular length as well as congruent ankle mortise laterally in the gutter. Given my plan was for quad cortical fixation given her significant neuropathy I then switched to my medial incision I started off with a direct medial incision sharp scalpel excision was made through skin and subcutaneous tissue I then protected the saphenous vein and utilized a begum face elevator to elevate the periosteum identified the large oblique fracture fragment that extended proximally into the medial malleolus this fracture was then opened booked and I thoroughly irrigated the tibiotalar joint fracture site fracture hematoma was cleared out and I subsequently drilled the fixed wing pilot unicortical hole and used a [id number] reduction clamp to reduce the medial malleolus once this was then reduced I then brought in large C arm to again confirm my reduction of the medial malleolus as well as the distal fibula and once my ankle mortise was congruent with my reduction I then placed 2 guidepins for 4 oh cannulated screws. These guidepins were then subsequently advanced with fixation across the physis. These were placed in parallel fashion perpendicular across the fracture site once these were advanced appropriate depth they were subsequently measured I then drilled out the near cortex with a cannulated drill bit and then placed 255 mm 4.0 mm partially-threaded cannulated screws. These were advanced by hand and had excellent fixation. In order to augment my fixation I then plan to add a 5 hole one third tubular plate and antiglide fashion. Appropriate size were then made I then utilized plate benders to bend this to the contour of the medial malleolus and then I placed my axillary screw I drilled this bicortically and measured and placed an appropriate length screw with have excellent compression of screw to bone then I subsequently drilled my most proximal screw cortically bicortically which was drilled measured and had excellent fixation and then subsequently locked to the plate with a locking screw. Next I subsequently transition back to the lateral incision from this standpoint I confirmed I liked my positioning of the distal fibula plate. Patient still had unstable ankle mortise and given diabetic plan for multiple syndesmotic screws/quad cortical fixation. then subsequently selected 3 holes that would bypass the screws from the medial malleolus and held my ankle mortise reduced and subsequently drilled and placed 3 quad cortical screw fixation to increase my construct rigidity given patient's neuropathy. I then subsequently drilled measured and placed additional locking screws throughout the distal fibula plate I did swap out the cortical screw distally for a locking screw. Final locking screws were then placed. This completed my construct rigidity. I then took the ankle through final x-rays of AP ankle mortise external stress test which confirmed stable syndesmosis as well as a lateral. This confirmed appropriate fixation and reduction of trimalleolar ankle fracture. Tourniquet was deflated hemostasis satisfactory wound bed were then thoroughly irrigated these were then closed in layered fashion of 0 Vicryl suture laterally to close the periosteum as well as 2-0 Vicryl for subcutaneous tissue and jean claude for the skin. Medial incision was then closed with 2-0 Vicryl and jean claude for the skin Xeroform 4 x 4's ABD Curlex soft roll and a standard AO splint was then applied. Patient was awakened from anesthesia and taken directly to ICU in stable condition. Disposition: Patient taken to ICU in stable condition she is recovering well. She will receive appropriate discharge instruction as well as pain medication and will resume home anticoagulation. Internal medicine on board appreciate medical management. We will continue with pain control be nonweightbearing right lower extremity. Elevation ice as needed for pain and swelling. PT/OT. Orthopedics will continue to follow along. Maintain splint until follow-up. We will follow-up in the orthopedic office in 2 weeks.
--- NOTE | 2023-01-26 12:38 | XRR_ITS ---
PROCEDURE INFORMATION: Exam: XR Right Ankle Exam date and time: 01/26/2023 12:54 PM Age: 67 years old Clinical indication: Pain; Ankle; Right; Additional info: Postop orif ankle TECHNIQUE: Imaging protocol: Radiologic exam of the right ankle. Views: 3 or more views. COMPARISON: 1. CT ankle RT wo con* [id number] 01/26/2023 3:40 AM 2. CR (LOW EXM, ) 01/25/2023 5:28 PM FINDINGS: Bones/joints: Comminuted distal tibia and fibula fractures show improved alignment status post ORIF with plate and screw fixation. No new fracture or dislocation. Joint spacing and alignment are maintained. Mild calcaneal enthesophytes. Soft tissues: Regional soft tissue swelling and vertically oriented medial and lateral skin jean claude. No unexpected retained radiopaque foreign body identified. Other findings: Overlying splint material. XR/XR ankle RT min 3V* [id number] IMPRESSION: Improved alignment of comminuted distal tibia and fibula fractures status post ORIF without evidence of immediate complication.
--- NOTE | 2023-01-26 12:42 | ANE.PACU2 ---
Inpatient post-anesthesia follow up: Airway intact: Yes Vital signs: Temperature 98.3 F Pulse Rate 83 Respiratory Rate 18 Blood Pressure 90/77 Pulse Oximetry 99 Oxygen Delivery Me thod Nasal Cannula Oxygen Flow Rate 3 Fraction of Inspir ed Oxygen
--- NOTE | 2023-01-26 12:43 | PM.PACU ---
PACU note Narrative: Patient transported to ICU on 5L NC. VSS patient oriented and verbal. Report given to CELIA RN. Exam: somnolent, arousable and vital signs stable Disposition: back to floor (ICU)
[2023-01-26] MEDS: lactated ringers 1,000 ML 75 ML IV ×2 (13:05→20:45)
[2023-01-26] MEDS: TRAMadol 50 mg Tablet PO ×2 (13:56→22:47)
[2023-01-26] MEDS: calcium carb-vit d 600mg/400unit 1 Tablet 1 EACH PO (17:34)
[2023-01-26] MEDS: docusate sodium 100 mg Capsule PO (17:34)
[2023-01-26] MEDS: chlorhexidine gluconate 0.12% Btl 473 mL 30 ML MUCOUS MEM ×2 (17:34→20:45)
[2023-01-26] MEDS: iron polysaccharide complex 150 mg Capsule PO (17:36)
[2023-01-26] MEDS: oxyCODONE 5 mg IR Tab/Cap PO (18:52)
[2023-01-26] MEDS: gabapentin 300 mg Capsule 600 MG PO (20:41)
[2023-01-26] MEDS: amitriptyline 25 mg Tablet 50 MG PO (20:41)
[2023-01-26] MEDS: mirtazapine 30 mg Tablet PO (20:41)
[2023-01-27] VITALS (33 sets, daily range): BP systolic 79–120; BP diastolic 48–80; PULSE 73–123; RESP 12–24; TEMP 36.4–37; O2SAT 90–100
[2023-01-27] MEDS: ceFAZolin 2,000 MG in sodium chloride 0.9% (plus) 50 ML 100 MG IV ×2 (01:57→09:53)
[2023-01-27 03:21] LABS: Basophils % 0.2 %; Hematocrit 36.2 % (37.0-47.0); Hemoglobin 11.6 g/dL (11.5-15.3); Lymphocytes % 20.6 %; Mean Corpuscular Hemoglobin 33.7 pg (28.0-34.0); Mean Corpuscular Volume 105.2 fl (81-99); Monocytes # 0.7 10^3/uL (0.2-0.9); Neutrophils # 7.04 10^3/uL (1.8-7.7); Neutrophils % 71.6 %; Nucleated Red Blood Cells % 0 %; Platelet Count 190 10^3/cmm (130-400); Red Blood Count 3.44 10^6/uL (4.1-5.3); Red Cell Distribution Width 17.6 % (12.1-15.1); White Blood Count 9.8 10^3/uL (4.0-10.0)
[2023-01-27 03:40] LABS: Blood Urea Nitrogen 8 mg/dL (8-23); Calcium 7.8 mg/dL (8.5-10.5); Carbon Dioxide 27 mmol/L (22-29); Chloride 108 mmol/L (98-107); Glomerular Filtration Rate 49.5 mL/min (90-130); Glucose 90 mg/dL (65-115); Osmolality Calculated 292 mOsm/kg (285-295); Sodium 142 mmol/L (136-145)
[2023-01-27] MEDS: oxyCODONE 5 mg IR Tab/Cap PO ×2 (04:24→17:45)
[2023-01-27] MEDS: HYDROmorphone 1 mg/mL INJ 1 mL IVP (07:14)
--- NOTE | 2023-01-27 08:18 | PM.PN ---
Subjective Subjective: Patient reports feeling really well this morning. She did have some pain overnight, but this was controlled with pain medication. She has been eating without problem. Nursing reports that she still has had some soft pressures. Vitals/I&O/Wt Last Vital Signs Temp 98.0 F 01/27/23 06:00 Pulse 98 01/27/23 06:00 Resp 21 H 01/27/23 07:14 BP 105/75 01/27/23 06:00 Pulse Ox 92 01/27/23 07:14 O2 Del Method Nasal Cannula 01/27/23 06:00 O2 Flow Rate 3 01/27/23 06:00 01/26/23 01/27/23 01/27/23 22:59 06:59 14:59 Intake Total 400 / 950 50 / 1000 Output Total 950 / 1000 400 / 1400 Balance -550 / -50 -350 / -400 Weight last 48 hrs Weight 206 lb 2.115 oz Weight 190 lb Physical Exam Narrative: General: Patient is awake, alert, no distress. Head: Normocephalic. Atraumatic. EOM intact. Cardiovascular: RRR. No gallops. No murmurs. Lungs: Clear to auscultation, no use of accessory muscles, no crackles or wheezes. Skin: No jaundice. No rashes. Right leg is wrapped in Surya bandage. Abdomen: Soft, nontender, nondistended. Normal bowel sounds. Extremities: No edema or cyanosis. Small hematoma on left great toe. Neurological: No focal motor or sensory loss. Alert and oriented x4. Data 01/27/23 02:51 01/27/23 02:51 Micro: Microbiology 01/25/23 19:58 Blood Culture - Preliminary Blood NEGATIVE TO DATE 01/25/23 19:50 Blood Culture - Preliminary Blood NEGATIVE TO DATE A&P Assessment and plan (1) Syncope: Syncope likely medication induced versus orthostasis Avoid polypharmacy Monitor blood pressure closely Holding some antihypertensives given soft blood pressure Fall precautions Supportive care (2) Hypotension: Does not clinically appear septic Received 1 L of IV fluids in the ED Continue to hold antihypertensives for now. (3) Acute cystitis: Continue Rocephin. (4) Ankle fracture, right: Orthopedic surgery consulted, appreciate recommendations Multimodal pain control Hold apixaban and Plavix pending surgery evaluation N.p.o. pending surgical evaluation (5) Hyperlipidemia: Continue statin Qualifiers: Hyperlipidemia type: unspecified Qualified Code(s): E78.5 - Hyperlipidemia, unspecified (6) Acquired hypothyroidism: Continue Synthroid (7) Type 2 diabetes mellitus with diabetic nephropathy: Continue to monitor blood sugars. Plan 67-year-old female admitted for right ankle fracture. Continue ICU monitoring. Blood pressures remain soft. Most recent BP today was 84/56. There may be a component of pain medication contributing. Hold home BP medications. Incentive spirometry. Physical therapy to evaluate and treat. Continue Rocephin. Blood and urine cultures pending. We will restart Xarelto and Plavix. GI prophylaxis with pantoprazole. We will plan to transfer up to the floor once blood pressures are stable. Code Status: Full code IVF: None DVT PPx: SCDs, Xarelto. GI PPx: Protonix ABx: Rocephin Diet: Carb consistent. Discharge plan: Home when appropriate. Attestations Medical Necessity Statement*: Patient will need continued inpatient care and monitoring for hypotension, syncopal episode, post-operative care and discharge planning, PT. Coding Level of Care Code Acute Code for Chg Fwd Moderate MDM includes number and complexity of problems actively addressed during encounter, amount and/or complexity of data reviewed/ordered and described risk of complication, morbidity or mortality of management as documented Diagnoses Syncope R55 Hypotension I95.9 Acute cystitis N30.00 Ankle fracture, right S82.891A Hyperlipidemia E78.5 Hyperlipidemia type: unspecified Acquired hypothyroidism E03.9 Type 2 diabetes mellitus with diabetic nephropathy E11.21
[2023-01-27] MEDS: calcium carb-vit d 600mg/400unit 1 Tablet 1 EACH PO ×2 (08:38→17:43)
[2023-01-27] MEDS: iron polysaccharide complex 150 mg Capsule PO ×2 (08:38→17:43)
[2023-01-27] MEDS: docusate sodium 100 mg Capsule PO ×2 (08:38→17:43)
[2023-01-27] MEDS: gabapentin 300 mg Capsule 600 MG PO ×3 (08:38→20:34)
[2023-01-27] MEDS: multivitamin therapeutic Tablet 1 TAB PO (08:38)
[2023-01-27] MEDS: chlorhexidine gluconate 0.12% Btl 473 mL 30 ML MUCOUS MEM ×3 (08:39→20:39)
[2023-01-27] MEDS: lactated ringers 1,000 ML 75 ML IV (09:54)
--- NOTE | 2023-01-27 10:44 | PM.PN ---
Subjective Subjective: Patient seen and examined this morning in ICU she is recovering well she has been stable we will be transferring out of ICU today. Discussed with hospitalist and patient will transfer out we will resume her home anticoagulation of Eliquis and Plavix. Overall her pains controlled with medications. No other issues overnight. Elevating right lower extremity. She understands restrictions and nonweightbearing to right lower extremity. Vitals/I&O/Wt Last Vital Signs Temp 98.6 F 01/27/23 09:00 Pulse 103 H 01/27/23 09:00 Resp 13 01/27/23 09:00 BP 84/56 01/27/23 09:00 Pulse Ox 97 01/27/23 09:00 O2 Del Method Nasal Cannula 01/27/23 09:00 O2 Flow Rate 3 01/27/23 06:00 01/26/23 01/27/23 01/27/23 22:59 06:59 14:59 Intake Total 400 / 950 50 / 1000 1236.25 / 1236.25 Output Total 950 / 1000 400 / 1400 400 / 400 Balance -550 / -50 -350 / -400 836.25 / 836.25 Weight last 48 hrs Weight 206 lb 2.115 oz Weight 190 lb Physical Exam Narrative: Examination of the right lower extremity is limited secondary to splint on in place her toes warm and perfused with brisk capillary refill less than 2 seconds. She has diffuse decrease sensation secondary to her not neuropathy throughout the toes. Dressing/splint on in place is clean dry and intact. Unable to assess any other further motor or sensory secondary to splint as well as patient's neuropathy. Data 01/27/23 02:51 01/27/23 02:51 Micro: Microbiology 01/25/23 17:44 Urine Culture - Preliminary Urine,Clean Catch Gram Negative Rods 01/25/23 19:58 Blood Culture - Preliminary Blood NEGATIVE TO DATE 01/25/23 19:50 Blood Culture - Preliminary Blood NEGATIVE TO DATE Xray Ortho: My impression: Postoperative x-rays demonstrate stable left trimalleolar ankle fracture ORIF with stable fixation congruent ankle mortise noted. No evidence of hardware failure or loosening. A&P Assessment and plan (1) Ankle fracture, right: (2) Type 2 diabetes mellitus with diabetic nephropathy: Plan Patient is postoperative day 1 from a right trimalleolar ankle ORIF. Splint is on in place clean dry and intact. She is in the ICU will transfer out today. May resume home anticoagulation this will be her DVT prophylaxis as well. Continue pain control. Should be nonweightbearing to the right lower extremity maintain splint until follow-up elevation and ice as needed. Internal medicine on board as primary and appreciate their medical management. Stable from orthopedic standpoint. Postoperative x-rays reviewed demonstrating anatomic reduction and stable hardware. Orthopedics will follow along for 1 more day and plan for likely sign off of the patient tomorrow if she is recovering well. She will follow-up with me in the office in 2 weeks. Patient understands and agrees with current plan. All questions answered. Appreciate you me to partake in the care of this patient. Attestations Medical Necessity Statement*: Right trimalleolar ankle fracture secondary to syncopal episode Coding Level of Care Code Acute Code for [facility] Diagnoses Ankle fracture, right S82.891A Type 2 diabetes mellitus with diabetic nephropathy E11.21 Time Spent (min) 15
[2023-01-27] MEDS: apixaban 5 mg Tablet PO ×2 (10:55→17:43)
[2023-01-27] MEDS: sodium chloride 0.9% 500 ML 999 ML IV (10:55)
[2023-01-27] MEDS: TRAMadol 50 mg Tablet PO ×2 (13:19→20:34)
[2023-01-27 17:21] LABS: Glucose Point of Care 108 mg/dL (70-110)
--- NOTE | 2023-01-27 17:49 | PC.NURSE ---
Shift Note Frequent safety and comfort rounds continue. Orders and/or nursing care completed as indicated. Patient monitored for response to intervention and treatment(s). Patient educated on S/S of infection and clot formation, as well as pain management. Patient frequently educated to use call light for pain and mobility needs as well as any other desires. Patient often moaning and calling out from room in sounds of pain. When nurse assesses patient, patient indicates low pain scale. Pain management has been difficult to achieve due to low blood pressures. Physical therapy and surgeon recommends patient to sit at side of bed for meals, and use of bedside commode with no weight bearing on right foot with two person assist. Patient has been compliant with this. Patent remains afebrile throughout shift. Patient has not been symptomatic during bouts of low blood pressure, orders to transfer to medical surgical floor have been rescinded at this time.
[2023-01-27] MEDS: midodrine 5 mg TABLET 2.5 MG PO (20:33)
[2023-01-27] MEDS: amitriptyline 25 mg Tablet 50 MG PO (20:34)
[2023-01-27] MEDS: mirtazapine 30 mg Tablet PO (20:34)
[2023-01-28] VITALS (30 sets, daily range): BP systolic 81–112; BP diastolic 52–73; PULSE 97–125; RESP 12–23; TEMP 36.4–36.8; O2SAT 90–100
[2023-01-28] MEDS: lactated ringers 1,000 ML 75 ML IV (00:08)
[2023-01-28 02:43] LABS: Basophils % 0.2 %; Eosinophils # 0.1 10^3/uL (0.0-0.8); Eosinophils % 1.5 %; Hematocrit 33.5 % (37.0-47.0); Hemoglobin 10.5 g/dL (11.5-15.3); Lymphocytes # 2.5 10^3/uL (0.8-4.8); Lymphocytes % 30.3 %; Mean Corpuscular HGB Conc 31.3 g/dL (30.0-36.0); Mean Corpuscular Hemoglobin 32.9 pg (28.0-34.0); Mean Platelet Volume 11.2 fL (7.4-10.4); Monocytes # 0.6 10^3/uL (0.2-0.9); Monocytes % 7.6 %; Neutrophils # 4.86 10^3/uL (1.8-7.7); Nucleated Red Blood Cells % 0 %; Platelet Count 172 10^3/cmm (130-400); Red Blood Count 3.19 10^6/uL (4.1-5.3); Red Cell Distribution Width 17.7 % (12.1-15.1); White Blood Count 8.1 10^3/uL (4.0-10.0)
[2023-01-28 03:07] LABS: Alanine Aminotransferase 14 U/L (0-33); Alkaline Phosphatase 72 U/L (35-105); Anion Gap 15.7 (5-19); Aspartate Amino Transferase 36 U/L (0-32); Blood Urea Nitrogen 7 mg/dL (8-23); Calcium 7.7 mg/dL (8.5-10.5); Carbon Dioxide 21 mmol/L (22-29); Chloride 104 mmol/L (98-107); Globulin 2.6 g/dL (1.3-4.6); Glomerular Filtration Rate 83.5 mL/min (90-130); Glucose 84 mg/dL (65-115); Osmolality Calculated 281 mOsm/kg (285-295); Potassium 3.7 mmol/L (3.5-5.1); Sodium 137 mmol/L (136-145); Total Bilirubin 0.4 mg/dL (0.15-1.2); Total Protein 4.6 g/dL (6.6-8.7)
[2023-01-28 03:27] LABS: Ferritin 150 ng/mL (15-150)
[2023-01-28 03:43] LABS: Folate Level 7.2 ng/mL (4.8-37.3)
[2023-01-28 03:44] LABS: Vitamin B12 189 pg/mL (232-1245)
[2023-01-28] MEDS: clopidogrel 75 mg Tablet PO (05:19)
[2023-01-28] MEDS: levothyroxine 112 mcg Tablet PO (05:19)
[2023-01-28] MEDS: iron polysaccharide complex 150 mg Capsule PO ×2 (08:25→18:05)
[2023-01-28] MEDS: cyanocobalamin 1,000 mcg Tablet 1000 MCG PO (08:25)
[2023-01-28] MEDS: apixaban 5 mg Tablet PO ×2 (08:25→17:55)
[2023-01-28] MEDS: gabapentin 300 mg Capsule 600 MG PO ×3 (08:26→21:02)
[2023-01-28] MEDS: docusate sodium 100 mg Capsule PO ×2 (08:26→17:55)
[2023-01-28] MEDS: midodrine 5 mg TABLET 2.5 MG PO (08:26)
[2023-01-28] MEDS: calcium carb-vit d 600mg/400unit 1 Tablet 1 EACH PO ×2 (08:26→17:55)
[2023-01-28] MEDS: multivitamin therapeutic Tablet 1 TAB PO (08:27)
[2023-01-28] MEDS: chlorhexidine gluconate 0.12% Btl 473 mL 30 ML MUCOUS MEM ×4 (08:27→21:03)
[2023-01-28] MEDS: oxyCODONE 5 mg IR Tab/Cap PO (08:51)
[2023-01-28 08:57] LABS: Cortisol Random 9.28 ug/dL (2.47-19.5); Thyroid Stimulating Hormone 0.88 uIU/mL (0.27-4.20)
[2023-01-28] MEDS: cyclobenzaprine 10 mg Tablet 5 MG PO (16:00)
[2023-01-28] MEDS: midodrine 5 mg TABLET PO ×2 (16:00→21:03)
--- NOTE | 2023-01-28 16:46 | PM.PN ---
Subjective Subjective: Patient was seen this morning, she tells me that she is nonweightbearing in her right lower extremities, she does report pain, right lower extremity, decreased ambulation, I had a discussion about her discharge planning, she does that she lives at home her daughter is there, but her daughter has to work so her daughters boyfriend will be there, she is not sure if somebody will be there always to help her, denies any lightheadedness, dizziness, she does admit that the reason she thinks she passed out was that she took 8 mg of Flexeril, with 2x50 mg tramadol tablets, after taking this, she felt lightheaded and dizzy when she got up and passed out Vitals/I&O/Wt Last Vital Signs Temp 97.7 F 01/28/23 08:00 Pulse 102 H 01/28/23 16:00 Resp 17 01/28/23 16:00 BP 112/70 01/28/23 16:00 Pulse Ox 97 01/28/23 16:00 O2 Del Method Nasal Cannula 01/28/23 08:01 O2 Flow Rate 4 01/28/23 08:01 01/28/23 01/28/23 01/28/23 06:59 14:59 22:59 Intake Total 1000 / 3456.25 1360 / 1360 Output Total 800 / 2100 400 / 400 Balance 200 / 1356.25 960 / 960 Weight last 48 hrs Weight 93.5 kg Physical Exam Const: COMMON NORMALS: no acute distress and patient oriented x3 Resp: COMMON NORMALS: normal respiratory effort, No retractions, No use of accessory muscles and clear to auscultation bilaterally AUSCULTATION: clear to auscultation bilaterally Cardio: COMMON NORMALS: regular rate, regular rhythm, S1 normal heart sound present and S2 normal heart sound present RATE: regular rate RHYTHM: regular rhythm HEART SOUNDS: S1 normal heart sound present and S2 normal heart sound present GI: COMMON NORMALS: Normal to inspection, nondistended, normoactive bowel sounds present and non-tender Extremity: COMMON NORMALS: no pedal edema NARRATIVE EXTREMITY EXAM: Right lower extremity in a cast Neuro: COMMON NORMALS: patient oriented x3 Psych: COMMON NORMALS: mental status grossly normal Data 01/28/23 02:28 01/28/23 02:28 Micro: Microbiology 08/04/23 17:44 Urine Culture - Final Urine,Clean Catch Escherichia coli A&P Assessment and plan (1) Syncope: Syncope likely medication and orthostatic Avoid polypharmacy Monitor blood pressure closely Holding some antihypertensives given soft blood pressure Increase midodrine to 5mg 3 times daily Fall precautions Supportive care (2) Hypotension: Increase midodrine to 5 mg 3 times daily Continue to hold antihypertensives for now. (3) Acute cystitis: Continue Rocephin. (4) Ankle fracture, right: Orthopedic surgery consulted, appreciate recommendations Status post surgical intervention Procedure done: Right trimalleolar ankle fracture open reduction internal fixation Right ankle syndesmotic fixation Implants: [employer] 5 hole anatomic distal fibula plate Devika one third tubular 5 hole plate 4.0 mm x 2 cannulated screws both 55 mm in length Multimodal pain control countinue apixaban and Plavix pending surgery evaluation (5) Hyperlipidemia: Continue statin Qualifiers: Hyperlipidemia type: unspecified Qualified Code(s): E78.5 - Hyperlipidemia, unspecified (6) Acquired hypothyroidism: Continue Synthroid (7) Type 2 diabetes mellitus with diabetic nephropathy: Continue to monitor blood sugars. (8) B12 deficiency: -start cyanocobalamin Plan 67-year-old female admitted for right ankle fracture. will move to [facility] Blood pressures remain soft. Most recent BP today was 84/56. There may be a component of pain medication contributing. Hold home BP medications. Incentive spirometry. Physical therapy to evaluate and treat. Continue Rocephin. Blood negative so far and urine cultures ecoli Xarelto and Plavix. GI prophylaxis with pantoprazole. Code Status: Full code IVF: None DVT PPx: SCDs, Xarelto. GI PPx: Protonix ABx: Rocephin Diet: Carb consistent. Discharge plan: Home when appropriate. Attestations Medical Necessity Statement*: patient requires hospitalization for right ankle fracture, low blood pressures, uti Diagnoses Syncope R55 Hypotension I95.9 Acute cystitis N30.00 Ankle fracture, right S82.891A Hyperlipidemia E78.5 Hyperlipidemia type: unspecified Acquired hypothyroidism E03.9 Type 2 diabetes mellitus with diabetic nephropathy E11.21 B12 deficiency E53.8
--- NOTE | 2023-01-28 17:28 | P.PN_ITS ---
Subjective Subjective: Patient seen examined postoperative day 2 she is recovering well pain is controlled. Splint on in place is clean dry and intact. She is gotten up from work with therapy maintaining restrictions of nonweightbearing to the right lower extremity. She understands discharge instructions and will follow-up with me in the office in 2 weeks. Vitals/I&O/Wt Last Vital Signs Temp 97.7 F 01/28/23 08:00 Pulse 102 H 01/28/23 16:00 Resp 17 01/28/23 16:00 BP 112/70 01/28/23 16:00 Pulse Ox 97 01/28/23 16:00 O2 Del Method Nasal Cannula 01/28/23 08:01 O2 Flow Rate 4 01/28/23 08:01 01/28/23 01/28/23 01/28/23 06:59 14:59 22:59 Intake Total 1000 / 3456.25 1360 / 1360 Output Total 800 / 2100 400 / 400 Balance 200 / 1356.25 960 / 960 Weight last 48 hrs Weight 206 lb 2.115 oz Physical Exam Narrative: Examination of the right lower extremity is limited secondary to splint on in pl tanja her toes warm and perfused with brisk capillary refill less than 2 seconds. She has diffuse decrease sensation secondary to her not neuropathy throughout the toes. Dressing/splint on in place is clean dry and intact. Unable to assess any other further motor or sensory secondary to splint as well as patient's neuropathy. Data 01/28/23 02:28 01/28/23 02:28 Micro: Microbiology 01/25/23 17:44 Urine Culture - Final Urine,Clean Catch Escherichia coli A&P Assessment and plan (1) Ankle fracture, right: (2) Type 2 diabetes mellitus with diabetic nephropathy: Plan Patient is postoperative day 2 from a right trimalleolar ankle ORIF. Splint is on in place clean dry and intact. May resume home anticoagulation this will be her DVT prophylaxis as well. Continue pain control. Should be nonweightbearing to the right lower extremity maintain splint until follow-up elevation and ice as needed. Internal medicine on board as primary and appreciate their medical management. Stable from orthopedic standpoint. Postoperative x-rays reviewed demonstrating anatomic reduction and stable hardware. No changes overnight. At this point time she is stable from an orthopedic standpoint no further intervention required at this time she can follow-up with me in 2 weeks. If there is any questions pertaining to patient's care for free to contact Dr. Hallman. Patient understands agrees with current plan. All questions answered. Appropriate discharge instruction as well as pain medication will be in patient's chart. Thank you for allow me to partake in the care of this patient orthopedic surgery team will sign off patient at this time and follow peripherally. Attestations Medical Necessity Statement*: Right trimalleolar ankle fracture secondary to syncopal episode Coding Level of Care Code Acute Code for g Fwd Diagnoses Ankle fracture, right S82.891A Type 2 diabetes mellitus with diabetic nephropathy E11.21 Time Spent (min) 15
[2023-01-28] MEDS: amitriptyline 25 mg Tablet 50 MG PO (21:02)
[2023-01-28] MEDS: mirtazapine 30 mg Tablet PO (21:02)
--- NOTE | 2023-01-28 21:24 | PC.NURSE ---
Patient had orders to be transferred to [facility] when Nurse arrived for shift. Doctor was contacted for hypotension that was lower than noted throughout the day. Doctor gave orders to keep patient under observation until blood pressure was adequate enough for transfer.
[2023-01-28 21:38] LABS: Glucose Point of Care 93 mg/dL (70-110)
--- NOTE | 2023-01-28 22:56 | PC.NURSE ---
Patient was transfered to [facility] 253 bed 1 at 2250. Report was given to Kathy and patient was recieved by Kathy. Patient was stable during transfer.
[2023-01-29] VITALS (13 sets, daily range): BP systolic 79–103; BP diastolic 49–71; PULSE 95–114; RESP 15–19; TEMP 36.4–36.8; O2SAT 93–99
[2023-01-29] MEDS: clopidogrel 75 mg Tablet PO (05:01)
[2023-01-29] MEDS: levothyroxine 112 mcg Tablet PO (05:01)
[2023-01-29 05:14] LABS: Basophils % 0.4 %; Eosinophils # 0.1 10^3/uL (0.0-0.8); Eosinophils % 1.8 %; Hematocrit 30.4 % (37.0-47.0); Hemoglobin 9.6 g/dL (11.5-15.3); Lymphocytes # 2.4 10^3/uL (0.8-4.8); Lymphocytes % 33.2 %; Mean Corpuscular HGB Conc 31.6 g/dL (30.0-36.0); Mean Corpuscular Volume 104.5 fl (81-99); Mean Platelet Volume 11.5 fL (7.4-10.4); Monocytes # 0.7 10^3/uL (0.2-0.9); Monocytes % 10.1 %; Neutrophils # 3.95 10^3/uL (1.8-7.7); Neutrophils % 54.1 %; Nucleated Red Blood Cells % 0 %; Platelet Count 191 10^3/cmm (130-400); Red Blood Count 2.91 10^6/uL (4.1-5.3); Red Cell Distribution Width 18.3 % (12.1-15.1); White Blood Count 7.3 10^3/uL (4.0-10.0)
[2023-01-29 05:37] LABS: Blood Urea Nitrogen 6 mg/dL (8-23); Calcium 7.9 mg/dL (8.5-10.5); Carbon Dioxide 25 mmol/L (22-29); Chloride 106 mmol/L (98-107); Creatinine Clr Calc Pharmacy 75.8148; Glomerular Filtration Rate 83.5 mL/min (90-130); Glucose 74 mg/dL (65-115); Osmolality Calculated 286 mOsm/kg (285-295); Sodium 140 mmol/L (136-145)
[2023-01-29 05:44] LABS: Anion Gap 12.9 (5-19); Potassium 3.9 mmol/L (3.5-5.1)
[2023-01-29] MEDS: oxyCODONE 5 mg IR Tab/Cap PO (08:25)
[2023-01-29] MEDS: midodrine 5 mg TABLET PO ×3 (08:25→20:09)
[2023-01-29] MEDS: cyanocobalamin 1,000 mcg Tablet 1000 MCG PO (08:25)
[2023-01-29] MEDS: chlorhexidine gluconate 0.12% Btl 473 mL 30 ML MUCOUS MEM ×2 (08:25→20:11)
[2023-01-29] MEDS: gabapentin 300 mg Capsule 600 MG PO ×3 (08:26→20:09)
[2023-01-29] MEDS: apixaban 5 mg Tablet PO ×2 (08:26→17:21)
[2023-01-29] MEDS: multivitamin therapeutic Tablet 1 TAB PO (08:26)
[2023-01-29] MEDS: calcium carb-vit d 600mg/400unit 1 Tablet 1 EACH PO ×2 (08:26→17:21)
[2023-01-29] MEDS: iron polysaccharide complex 150 mg Capsule PO ×2 (08:26→17:21)
[2023-01-29] MEDS: docusate sodium 100 mg Capsule PO ×2 (08:27→17:21)
[2023-01-29] MEDS: cyclobenzaprine 10 mg Tablet 5 MG PO (08:33)
--- NOTE | 2023-01-29 11:00 | PC.SOCIAL ---
Pg 2 IMM Explained to pt Pg 2 IMM. No questions voiced. Provided pt a copy. Initialed, dated, & timed a copy & placed in chart.
[2023-01-29] MEDS: fludrocortisone 0.1 mg Tablet PO (13:20)
[2023-01-29] MEDS: hydrocortisone 100 mg/2 mL SDV 50 MG IVP (13:22)
--- NOTE | 2023-01-29 15:52 | USCV_ITS ---
Peri Cid Age: 67 Gender: F : 1955 Exam Date: 01/29/2023 16:34 Ordering Phys: Danielito Reece MD Technologist: Raul Singh Exam Location: [facility] [place] Indication: hypotension BP: 98 / 66 HR: 95 Rhythm: Sinus Technical Quality: Suboptimal MEASUREMENTS (Male / Female) Normal Values 2D ECHO LVOT Diameter 2.0 cm LV Ejection Fraction MOD 2C 42.6 % LV Ejection Fraction 2C AL 42.5 % LA Diameter 3.4 cm LA Width 3.1 cm LA Height 4.4 cm RA Width 3.4 cm RA Height 3.7 cm Aorta at Sinotubular Diameter 2.1 cm M-MODE Aortic Annulus Diameter 2.9 cm LA Ao Ratio MM 1.1 MV E Point Septal Separation 0.6 cm DOPPLER AV Peak Velocity 132.3 cm/s LVOT Peak Velocity 69.0 cm/s AV Area Cont Eq vti 2.0 cm squared AV Area Cont Eq pk 1.7 cm squared MV Peak Velocity 142.0 cm/s MV Area PHT 10.5 cm squared Mitral E to A Ratio 0.6 MV E' Velocity 30.5 cm/s Mitral E to MV E' Ratio 7.2 Mitral E to LV E' Lateral Ratio 6.0 Mitral E to LV E' Septal Ratio 9.1 TR Peak Velocity 399.0 cm/s TR Peak Gradient 63.7 mmHg TR Mean Velocity 302.6 cm/s TR Mean Gradient 39.9 mmHg TR Velocity Time Integral 96.8 cm Right Atrial Pressure 8.0 mmHg Pulmonary Artery Systolic Pressu 71.7 mmHg PV Peak Velocity 90.3 cm/s RV Acceleration Time 0.1 s RV Ejection Time 0.2 s RV AcT/ET 0.3 FINDINGS Left Ventricle The ventricle is not well seen. The only reasonable view is the apical view. In this view there appears to be normal left ventricular size and lower limit of normal left ventricular function. There may be mild left ventricular hypertrophy. In other views there is a suggestion of mild hypokinesis of the inferior wall though this cannot be corroborated. A rough estimate of the ejection fraction is 50 to 55%. There is grade 2 diastolic dysfunction. Right Ventricle Normal right ventricular size and systolic function. Severe pulmonary hypertension, RVSP 71.7 mmHg. Right Atrium The right atrium is normal in size. Left Atrium The left atrium is normal in size. Mitral Valve Structurally normal mitral valve. Mild mitral valve regurgitation. Aortic Valve Structurally normal aortic valve without significant sclerosis or stenosis. There is no aortic regurgitation. Tricuspid Valve Structurally normal tricuspid valve. Mild tricuspid valve regurgitation. Pulmonic Valve Pulmonic valve not well visualized. Pericardium Normal pericardium without effusion. Aorta Normal ascending aorta dimension. IVC Inferior vena cava not visualized. CONCLUSIONS The ventricle is not well seen. The only reasonable view is the apical view. In this view there appears to be normal left ventricular size and lower limit of normal left ventricular function. There may be mild left ventricular hypertrophy. In other views there is a suggestion of mild hypokinesis of the inferior wall though this cannot be corroborated. A rough estimate of the ejection fraction is 50 to 55%. There is grade 2 diastolic dysfunction. Normal right ventricular size and systolic function. Severe pulmonary hypertension, RVSP 71.7 mmHg. Structurally normal mitral valve. Mild mitral valve regurgitation. Previous echo was performed 03/19/2021. The only new finding on this study is the pulmonary hypertension. Previous study was not able to detect or measure the pulmonary artery pressure due to an incomplete tricuspid regurgitation envelope. Today's study may represent an overestimation of the pulmonary pressure due to the incomplete tricuspid regurgitation envelope. Clinical correlation is recommended. Dr. Jim Lara MD (Electronically Signed) Final Date: 29 January 2023 17:36 S
--- NOTE | 2023-01-29 15:56 | PM.PN ---
Subjective Subjective: Patient was seen this morning she her blood pressures remain soft throughout the night, remained soft this morning she is relatively asymptomatic, denies any lightheadedness, no dizziness, no nausea, no vomiting, no abdominal pain, denies any recurrent syncopal episodes, no chest pain, no palpitations, no bloody or black stools, her hemoglobin did decrease to 9.6 but it could be dilutional she denies any hemoptysis, no bloody or black stools, Vitals/I&O/Wt Last Vital Signs Temp 98.2 F 01/29/23 12:00 Pulse 100 01/29/23 12:00 Resp 16 01/29/23 12:00 BP 79/49 01/29/23 12:00 Pulse Ox 97 01/29/23 12:00 O2 Del Method Nasal Cannula 01/29/23 09:26 O2 Flow Rate 3 01/29/23 09:26 01/29/23 01/29/23 01/29/23 06:59 14:59 22:59 Intake Total 240 / 240 Output Total 150 / 150 Balance 90 / 90 Weight last 48 hrs Weight 93.894 kg Physical Exam Const: COMMON NORMALS: no acute distress and patient oriented x3 Resp: COMMON NORMALS: normal respiratory effort, No retractions, No use of accessory muscles and clear to auscultation bilaterally AUSCULTATION: clear to auscultation bilaterally Cardio: COMMON NORMALS: regular rate, regular rhythm, S1 normal heart sound present and S2 normal heart sound present RATE: regular rate RHYTHM: regular rhythm HEART SOUNDS: S1 normal heart sound present and S2 normal heart sound present GI: COMMON NORMALS: Normal to inspection, nondistended, normoactive bowel sounds present and non-tender Extremity: COMMON NORMALS: no pedal edema Neuro: COMMON NORMALS: patient oriented x3 Psych: COMMON NORMALS: mental status grossly normal Data 01/29/23 04:07 01/29/23 04:07 Micro: Microbiology 01/25/23 17:44 Urine Culture - Final Urine,Clean Catch Escherichia coli A&P Assessment and plan (1) Syncope: Syncope likely medication and orthostatic Avoid polypharmacy Monitor blood pressure closely Holding some antihypertensives given soft blood pressure Increase midodrine to 5mg 3 times daily Fall precautions Supportive care (2) Hypotension: Patient has persistent hypotension, currently asymptomatic -No significant evidence of septic shock, no fevers, no significant leukocytosis -No clinical evidence of cardiogenic shock, no shortness of breath, no chest pain, no JVD -No evidence of obstructive shock, no chest pain, no shortness of breath, is on 3 L -No evidence of anaphylactic reaction -Her hemoglobin has gone down to 9.6 it could be dilutional, no blood or black stools reported repeat CBC ferritin, iron, Hemoccult stool -She has a history of low blood pressures during her February 2020 admission she was noted to have low blood pressures, after her cath, -Possibly could be a component of medications including oxycodone -Her TSH is within normal limits -Her cortisol is on the lower end given her hypotension, potentially a component of adrenal insufficiency we will do a trial of fludrocortisone with hydrocortisone -Does have hypoalbuminemia we will give her dose of albumin -Will do a cardiac echo -Will monitor blood pressures closely -Monitor clinically (3) Acute cystitis: Continue Rocephin. (4) Ankle fracture, right: Orthopedic surgery consulted, appreciate recommendations Status post surgical intervention Procedure done: Right trimalleolar ankle fracture open reduction internal fixation Right ankle syndesmotic fixation Implants: [place] 5 hole anatomic distal fibula plate [place] one third tubular 5 hole plate 4.0 mm x 2 cannulated screws both 55 mm in length Multimodal pain control countinue apixaban and Plavix pending surgery evaluation (5) Hyperlipidemia: Continue statin Qualifiers: Hyperlipidemia type: unspecified Qualified Code(s): E78.5 - Hyperlipidemia, unspecified (6) Acquired hypothyroidism: Continue Synthroid (7) Type 2 diabetes mellitus with diabetic nephropathy: Continue to monitor blood sugars. (8) B12 deficiency: -start cyanocobalamin Plan 67-year-old female admitted for right ankle fracture. Incentive spirometry. Physical therapy to evaluate and treat. Continue Rocephin. Blood negative so far and urine cultures ecoli Xarelto and Plavix. GI prophylaxis with pantoprazole. Code Status: Full code IVF: None DVT PPx: SCDs, Xarelto. GI PPx: Protonix ABx: Rocephin Diet: Carb consistent. Discharge plan: Home when appropriate. Plan for today continues to have hypotension, will order cardiac echocardiogram, start on steroids, for possible adrenal insufficiency, continue midodrine, 1 dose of albumin, she does have a hemoglobin 9.6, no bloody or black stools will do iron studies, ferritin repeat CBC, monitor hemodynamics, CT scan abdomen pelvis to evaluate for possible retroperitoneal bleed Attestations Medical Necessity Statement*: Patient requires hospitalization for persistent hypotension Diagnoses Syncope R55 Hypotension I95.9 Acute cystitis N30.00 Ankle fracture, right S82.891A Hyperlipidemia E78.5 Hyperlipidemia type: unspecified Acquired hypothyroidism E03.9 Type 2 diabetes mellitus with diabetic nephropathy E11.21 B12 deficiency E53.8
--- NOTE | 2023-01-29 16:02 | CTR_ITS ---
PROCEDURE INFORMATION: Exam: CT Abdomen And Pelvis Without Contrast Exam date and time: 01/29/2023 6:31 PM Age: 67 years old Clinical indication: Other: Hypotension TECHNIQUE: Imaging protocol: Computed tomography of the abdomen and pelvis without contrast. Radiation optimization: All CT scans at this facility use at least one of these dose optimization techniques: automated exposure control; mA and/or kV adjustment per patient size (includes targeted exams where dose is matched to clinical indication); or iterative reconstruction. REPORTING DATA: Count of CT and Cardiac NM exams in prior 12 months: This patient has received 6 known CTs and 0 known cardiac nuclear medicine studies in the 12 months prior to the current study. COMPARISON: CT abdomen pelvis wo con [id number] 04/29/2018 9:27 AM RADIATION DOSE METRICS: Total DLP (mGy-cm): 861.12 FINDINGS: Lungs: Emphysematous changes. Bibasilar atelectasis. Pleural spaces: Small to moderate bilateral pleural effusions. Coronary arteries: Coronary artery atherosclerotic calcifications. Liver: Hepatic steatosis. Gallbladder and bile ducts: Cholelithiasis. Pancreas: Normal. No ductal dilation. Spleen: Normal. No splenomegaly. Adrenal glands: Normal. No mass. Kidneys and ureters: Left kidney punctate nonobstructing calyceal stone. Stomach and bowel: Diverticulosis without diverticulitis. Gastric surgical sutures. Appendix: No evidence of appendicitis. Intraperitoneal space: Unremarkable. No free air. No significant fluid collection. Vasculature: Unremarkable. No abdominal aortic aneurysm. Lymph nodes: Unremarkable. No enlarged lymph nodes. Urinary bladder: Punctate amount of air the urinary bladder may be iatrogenic. Reproductive: Unremarkable as visualized. Bones/joints: Unremarkable. No acute fracture. Soft tissues: Unremarkable. CT/CT abdomen pelvis con [id number] IMPRESSION: 1. Negative for focal acute inflammatory process in the abdomen or pelvis. 2. Small to moderate bilateral pleural effusions. 3. Coronary artery atherosclerotic calcifications. 4. Emphysematous changes. 5. Bibasilar atelectasis. 6. Hepatic steatosis. 7. Cholelithiasis. 8. Left kidney punctate nonobstructing calyceal stone. 9. Diverticulosis without diverticulitis. 10. Punctate amount of air the urinary bladder may be iatrogenic. 11. Gastric surgical sutures.
[2023-01-29 17:16] LABS: Basophils % 0.3 %; Eosinophils # 0.1 10^3/uL (0.0-0.8); Eosinophils % 0.7 %; Hematocrit 37.5 % (37.0-47.0); Lymphocytes # 1.5 10^3/uL (0.8-4.8); Mean Corpuscular Hemoglobin 33.6 pg (28.0-34.0); Mean Platelet Volume 11.1 fL (7.4-10.4); Monocytes # 0.4 10^3/uL (0.2-0.9); Monocytes % 4.9 %; Neutrophils # 5.53 10^3/uL (1.8-7.7); Neutrophils % 73.3 %; Nucleated Red Blood Cells % 0 %; Platelet Count 212 10^3/cmm (130-400); Red Blood Count 3.57 10^6/uL (4.1-5.3); Red Cell Distribution Width 18.4 % (12.1-15.1); White Blood Count 7.5 10^3/uL (4.0-10.0)
[2023-01-29] MEDS: acetaminophen 325 mg Tablet 650 MG PO (17:21)
[2023-01-29] MEDS: albumin 50 G/200 ML BAG 60 G IV (17:21)
[2023-01-29 17:32] LABS: Ferritin 197 ng/mL (15-150); Iron 35 ug/dL (37-145)
[2023-01-29 17:58] LABS: Lactate (Lactic Acid level) 1.7 mmol/L (0.5-2.2)
[2023-01-29] MEDS: mirtazapine 30 mg Tablet PO (20:09)
[2023-01-29] MEDS: amitriptyline 25 mg Tablet 50 MG PO (20:09)
[2023-01-30] VITALS (14 sets, daily range): BP systolic 90–106; BP diastolic 57–73; PULSE 93–114; RESP 16–22; TEMP 36.1–36.7; O2SAT 91–98
[2023-01-30 05:01] LABS: Basophils % 0.3 %; Eosinophils % 0.1 %; Hematocrit 23.5 % (37.0-47.0); Hemoglobin 7.5 g/dL (11.5-15.3); Lymphocytes # 2.3 10^3/uL (0.8-4.8); Lymphocytes % 33.3 %; Mean Corpuscular HGB Conc 31.9 g/dL (30.0-36.0); Mean Corpuscular Hemoglobin 33.3 pg (28.0-34.0); Mean Corpuscular Volume 104.4 fl (81-99); Mean Platelet Volume 10.9 fL (7.4-10.4); Monocytes # 0.5 10^3/uL (0.2-0.9); Monocytes % 7.4 %; Neutrophils # 3.95 10^3/uL (1.8-7.7); Neutrophils % 58.3 %; Nucleated Red Blood Cells % 0 %; Platelet Count 181 10^3/cmm (130-400); Red Blood Count 2.25 10^6/uL (4.1-5.3); Red Cell Distribution Width 18.1 % (12.1-15.1); White Blood Count 6.8 10^3/uL (4.0-10.0)
[2023-01-30] MEDS: levothyroxine 112 mcg Tablet PO (05:10)
[2023-01-30] MEDS: clopidogrel 75 mg Tablet PO (05:10)
[2023-01-30 05:18] LABS: Anion Gap 12.5 (5-19); Blood Urea Nitrogen 7 mg/dL (8-23); Calcium 8.1 mg/dL (8.5-10.5); Carbon Dioxide 27 mmol/L (22-29); Chloride 105 mmol/L (98-107); Creatinine Clr Calc Pharmacy 75.8148; Glomerular Filtration Rate 83.5 mL/min (90-130); Glucose 77 mg/dL (65-115); Osmolality Calculated 289 mOsm/kg (285-295); Potassium 3.5 mmol/L (3.5-5.1); Sodium 141 mmol/L (136-145)
[2023-01-30] MEDS: ipratropium-albuterol 3 mL Neb INHALATION ×2 (06:18→11:09)
--- NOTE | 2023-01-30 06:20 | XRR_ITS ---
PROCEDURE INFORMATION: Exam: XR Chest Exam date and time: 01/30/2023 6:44 AM Age: 67 years old Clinical indication: Shortness of breath TECHNIQUE: Imaging protocol: Radiologic exam of the chest. Views: 1 view. Other technique: . Equivocal COMPARISON: CR (CHEST, ) 01/25/2023 5:28 PM FINDINGS: Lungs: Pulmonary vascular congestion/edema. Pleural spaces: Equivocal small pleural effusions Heart/Mediastinum: Unremarkable. No cardiomegaly. Bones/joints: Unremarkable. XR/XR chest 1V portable [id number] IMPRESSION: 1. Pulmonary vascular congestion/edema. 2. Equivocal small pleural effusions
--- NOTE | 2023-01-30 06:23 | PC.NURSE ---
Patient began complaining of shortness of breath at 0615, this nurse checked her o2 sats, 91% on 3L, patients lungs sounds now have crackles and wheezes. Dr. Waite notified and he ordered a chest xray.
[2023-01-30] MEDS: multivitamin therapeutic Tablet 1 TAB PO (07:51)
[2023-01-30] MEDS: gabapentin 300 mg Capsule 600 MG PO (07:51)
[2023-01-30] MEDS: midodrine 5 mg TABLET PO ×3 (07:51→20:44)
[2023-01-30] MEDS: calcium carb-vit d 600mg/400unit 1 Tablet 1 EACH PO ×2 (07:51→17:03)
[2023-01-30] MEDS: chlorhexidine gluconate 0.12% Btl 473 mL 30 ML MUCOUS MEM ×2 (07:52→17:03)
[2023-01-30] MEDS: apixaban 5 mg Tablet PO (07:52)
[2023-01-30] MEDS: iron polysaccharide complex 150 mg Capsule PO ×2 (07:52→17:03)
[2023-01-30] MEDS: cyanocobalamin 1,000 mcg Tablet 1000 MCG PO (07:52)
[2023-01-30] MEDS: fludrocortisone 0.1 mg Tablet PO (07:52)
[2023-01-30] MEDS: docusate sodium 100 mg Capsule PO ×2 (07:52→17:03)
[2023-01-30] MEDS: cefTRIAXone 1,000 MG in sodium chloride 0.9% (plus) 50 ML 100 MG IV (09:45)
[2023-01-30] MEDS: hydrocortisone 100 mg/2 mL SDV 50 MG IVP ×2 (09:46→21:24)
[2023-01-30] MEDS: pantoprazole 40 mg SDV IVP ×2 (09:46→21:23)
[2023-01-30] MEDS: sucralfate 1 gm Tablet PO (09:47)
--- NOTE | 2023-01-30 10:15 | PC.NURSE ---
While attempting to do standing orthostatic vital signs, patient was in pain and could not tolerate standing while obtaining bp.
[2023-01-30] MEDS: FUROsemide 10 mg/mL SDV 2mL 20 MG IVP (10:19)
[2023-01-30] MEDS: polyethylene glycol 3350 Pkt 17 gm PO (10:19)
[2023-01-30] MEDS: peg /e-lyte soln 4,000 mL Btl 4000 ML PO (11:57)
[2023-01-30 12:08] LABS: Basophils % 0.2 %; Eosinophils % 0.3 %; Hematocrit 26.9 % (37.0-47.0); Hemoglobin 8.7 g/dL (11.5-15.3); Lymphocytes # 1.7 10^3/uL (0.8-4.8); Lymphocytes % 18.6 %; Mean Corpuscular HGB Conc 32.3 g/dL (30.0-36.0); Mean Corpuscular Hemoglobin 34.3 pg (28.0-34.0); Mean Corpuscular Volume 105.9 fl (81-99); Mean Platelet Volume 10.9 fL (7.4-10.4); Monocytes # 0.6 10^3/uL (0.2-0.9); Monocytes % 6.5 %; Neutrophils # 6.67 10^3/uL (1.8-7.7); Neutrophils % 73.7 %; Nucleated Red Blood Cells % 0 %; Platelet Count 241 10^3/cmm (130-400); Red Blood Count 2.54 10^6/uL (4.1-5.3); Red Cell Distribution Width 18.4 % (12.1-15.1); White Blood Count 9.1 10^3/uL (4.0-10.0)
[2023-01-30 12:36] LABS: Alanine Aminotransferase 10 U/L (0-33); Albumin Level 2.9 g/dL (3.5-5.2); Alkaline Phosphatase 65 U/L (35-105); Aspartate Amino Transferase 32 U/L (0-32); Total Bilirubin 0.6 mg/dL (0.15-1.2); Total Protein 5.9 g/dL (6.6-8.7)
[2023-01-30] MEDS: ondansetron 2 mg/ML SDV 2 mL 4 MG IVP ×2 (12:58→17:03)
[2023-01-30] MEDS: metoclopramide 5 mg/mL SDV 2 mL IVP (14:46)
--- NOTE | 2023-01-30 15:13 | P.PN_ITS ---
Subjective Subjective: Patient was examined early this morning, nursing staff at bedside, her blood pressures remain soft, she denies any lightheadedness, dizziness, she does report 1 tarry black bowel movement, no history of GI bleeds, her hemoglobin was 7.5, I discussed with her my concerns for a GI bleed, likely a slow GI bleed given that she is on Plavix and Eliquis,, I advised that we will go to hold her Eliquis, discussed risk and benefits, she voiced understanding, all questions answered, agreed to proceed I went up put her on Protonix and Carafate, continue to monitor hemodynamics closely, monitor for bloody or black stools, will consult general surgery, spoke to Dr. Chaparro, plan on potential EGD and colonoscopy tomorrow, start GoLytely, will continue to monitor hemoglobin trend, transfuse as needed, I have given her Lasix today as she has been complaining of shortness of breath, Vitals/I&O/Wt Last Vital Signs Temp 97.9 F 01/30/23 08:21 Pulse 111 H 01/30/23 14:00 Resp 17 01/30/23 11:10 BP 91/62 01/30/23 10:15 Pulse Ox 95 01/30/23 11:10 O2 Del Method Nasal Cannula 01/30/23 11:10 O2 Flow Rate 3 01/30/23 11:10 01/30/23 01/30/23 01/30/23 06:59 14:59 22:59 Intake Total 190 / 680 50 / 50 Output Total 600 / 600 Balance 190 / 530 -550 / -550 Weight last 48 hrs Weight 93.894 kg Weight 93.497 kg Weight 93.894 kg Physical Exam Const: COMMON NORMALS: no acute distress and patient oriented x3 Resp: COMMON NORMALS: normal respiratory effort, No retractions, No use of accessory muscles and clear to auscultation bilaterally AUSCULTATION: clear to auscultation bilaterally Cardio: COMMON NORMALS: regular rate, regular rhythm, S1 normal heart sound present and S2 normal heart sound present RATE: regular rate RHYTHM: regular rhythm HEART SOUNDS: S1 normal heart sound present and S2 normal heart sound present GI: COMMON NORMALS: Normal to inspection, nondistended, normoactive bowel sounds present and non-tender Extremity: COMMON NORMALS: no pedal edema Neuro: COMMON NORMALS: patient oriented x3 Psych: COMMON NORMALS: mental status grossly normal Data 01/30/23 11:54 01/30/23 04:09 A&P Assessment and plan (1) Syncope: Syncope likely medication and orthostatic Avoid polypharmacy Monitor blood pressure closely Holding some antihypertensives given soft blood pressure Currently on e midodrine to 5mg 3 times daily Fall precautions Supportive care (2) Hypotension: Patient has persistent hypotension, currently asymptomatic -No significant evidence of septic shock, no fevers, no significant leukocytosis -No clinical evidence of cardiogenic shock, no shortness of breath, no chest pain, no JVD -No evidence of obstructive shock, no chest pain, no shortness of breath, is on 3 L -No evidence of anaphylactic reaction -Her hemoglobin has gone down to 7.5, did have a complaint of 1 black tarry stool, Hemoccult stool pending, has very early evidence of iron deficiency anemia, he is on Eliquis and Plavix so certainly a slow GI bleed could be playing a role, Eliquis on hold, Protonix, Carafate -She has a history of low blood pressures during her February 2020 admission she was noted to have low blood pressures, after her cath, -Possibly could be a component of medications including oxycodone -Her TSH is within normal limits -Her cortisol is on the lower end given her hypotension, potentially a component of adrenal insufficiency will do a trial of hydrocortisone, fludrocortisone -Does have hypoalbuminemia, 2.9 -Will do a cardiac echo The ventricle is not well seen.? The only reasonable view is the ?apical view.? In this view there appears to be normal left ?ventricular size and lower limit of normal left ventricular ?function.? There may be mild left ventricular hypertrophy.? In ?other views there is a suggestion of mild hypokinesis of the ?inferior wall though this cannot be corroborated.? A rough ?estimate of the ejection fraction is 50 to 55%.? There is grade ?2 diastolic dysfunction. ?Normal right ventricular size and systolic function. Severe ?pulmonary hypertension, RVSP 71.7 mmHg. ?Structurally normal mitral valve. Mild mitral valve ?regurgitation. ?Previous echo was performed 03/19/2021.? The only new finding on ?this study is the pulmonary hypertension.? Previous study was ?not able to detect or measure the pulmonary artery pressure due ?to an incomplete tricuspid regurgitation envelope.? Today's ?study may represent an overestimation of the pulmonary pressure ?due to the incomplete tricuspid regurgitation envelope.? ?Clinical correlation is recommended. -Will monitor blood pressures closely -Monitor clinically (3) Acute cystitis: Continue Rocephin. (4) Ankle fracture, right: Orthopedic surgery consulted, appreciate recommendations Status post surgical intervention Procedure done: Right trimalleolar ankle fracture open reduction internal fixation Right ankle syndesmotic fixation Implants: Devika 5 hole anatomic distal fibula plate Devika one third tubular 5 hole plate 4.0 mm x 2 cannulated screws both 55 mm in length Multimodal pain control countinue apixaban and Plavix pending surgery evaluation (5) Hyperlipidemia: Continue statin Qualifiers: Hyperlipidemia type: unspecified Qualified Code(s): E78.5 - Hype rlipidemia, unspecified (6) Acquired hypothyroidism: Continue Synthroid (7) Type 2 diabetes mellitus with diabetic nephropathy: Continue to monitor blood sugars. (8) B12 deficiency: -start cyanocobalamin (9) Anemia: - B12 deficiency -Concerns for early iron deficiency -Concerns for slow GI bleed (10) GI bleed: - Concerns for slow GI bleed with hemoglobin of 7.5 complaint of black tarry stool -Hemoccult stool pending -Monitor hemodynamics closely -Continue Protonix, Carafate -Eliquis placed on hold -Currently on Plavix -Repeat hemoglobin at noon, and at 6 PM -CT abdomen pelvis negative for retroperitoneal bleed -Currently on GoLytely -General surgery consulted for EGD and colonoscopy Plan 67-year-old female admitted for right ankle fracture. Incentive spirometry. Physical therapy to evaluate and treat. Continue Rocephin. Blood negative so far and urine cultures ecoli Xarelto and Plavix. GI prophylaxis with pantoprazole. Code Status: Full code IVF: None DVT PPx: SCDs, Xarelto. GI PPx: Protonix ABx: Rocephin Diet: Carb consistent. Discharge plan: Home when appropriate. Patient was examined early this morning, nursing staff at bedside, her blood pressures remain soft, she denies any lightheadedness, dizziness, she does report 1 tarry black bowel movement, no history of GI bleeds, her hemoglobin was 7.5, I discussed with her my concerns for a GI bleed, likely a slow GI bleed given that she is on Plavix and Eliquis,, I advised that we will go to hold her Eliquis, discussed risk and benefits, she voiced understanding, all questions answered, agreed to proceed I went up put her on Protonix and Carafate, continue to monitor hemodynamics closely, monitor for bloody or black stools, will consult general surgery, spoke to Dr. Chaparro, plan on potential EGD and colonoscopy tomorrow, start GoLytely, will continue to monitor hemoglobin trend, transfuse as needed, I have given her Lasix today as she has been complaining of shortness of breath, spoke to Dr. Chaparro Attestations Medical Necessity Statement*: Patient requires hospitalization for acute anemia, slow GI bleed, hypotension Diagnoses Syncope R55 Hypotension I95.9 Acute cystitis N30.00 Ankle fracture, right S82.891A Hyperlipidemia E78.5 Hyperlipidemia type: unspecified Acquired hypothyroidism E03.9 Type 2 diabetes mellitus with diabetic nephropathy E11.21 B12 deficiency E53.8 Anemia D64.9 GI bleed K92.2
--- NOTE | 2023-01-30 15:30 | PC.OT ---
OT TREATMENT ATTEMPTED AT 1530. PT STATES SHE CANNOT KEEP ANYTHING DOWN AND WOULD LIKE TO HOLD THERAPY TODAY. WILL REATTEMPT TOMORROW.
--- NOTE | 2023-01-30 16:54 | PM.CONSULT ---
Providers/Reason For Consult Consulting Physician/Specialty*: Dr. Constantino Chaparro DO/General surgery Reason for Consult*: Anemia/melena Attending Physician: Danielito Reece MD Primary Care Provider: Doug Allen DO History of Present Illness History of Present Illness Peri Cid is a 67 year old female who currently has anemia and melena. She originally presented to the hospital with weakness and lightheadedness. She had a fall and suffered a right tib-fib fracture that was repaired in the hospital. Since then her hemoglobin has been dropping and she has noticed dark stools. Surgery was consulted for possible endoscopy. Patient denies any abdominal pain nausea or emesis Review of Systems General: Reports: 10 or more systems reviewed and unremarkable except in HPI and below Medications/Allergies Home Medications Medication Instructions Recorded Confirmed Last Taken Type ascorbic acid (vitamin C) 500 mg 500 mg PO QAM 08/13/19 01/26/23 05/27/22 History tablet (Vitamin C) albuterol sulfate 90 mcg/actuation 2 puff inhalation Q6H PRN 11/29/20 01/26/23 Unknown History aerosol inhaler Shortness Of Breath albuterol sulfate 2.5 mg/3 mL 2.5 mg inhalation Q6H PRN 12/05/21 01/26/23 Unknown History (0.083 %) solution for nebulization Shortness Of Breath amitriptyline 50 mg tablet 50 mg PO BEDTIME #90 tabs 06/11/22 01/26/23 Unknown Rx fluticasone propionate 50 2 spray intranasal DAILY PRN 06/11/22 01/26/23 Unknown Rx mcg/actuation nasal Allergy Symptoms #16 grams spray,suspension (Flonase Allergy Relief) furosemide 40 mg tablet 40 mg PO Q48H #90 tabs 06/11/22 01/26/23 Unknown Rx mirtazapine 30 mg tablet 30 mg PO BEDTIME #90 tabs 06/11/22 01/26/23 Unknown Rx rosuvastatin 10 mg tablet 10 mg PO BEDTIME #90 tabs 06/11/22 01/26/23 Unknown Rx Diabetic Shoes with 3 Inserts #1 ea 07/10/22 01/26/23 Unknown Rx calcitriol 0.25 mcg capsule 0.25 mcg PO .ON MON,WED,Sat10/15/22 01/26/23 Unknown History gabapentin 300 mg capsule See Rx Instructions .Route .COMPLEX 10/15/22 01/26/23 Unknown History tramadol 50 mg tablet 50 mg PO BID PRN Pain #60 tabs 01/01/23 01/26/23 Unknown Rx metoprolol succinate 25 mg 25 mg PO BEDTIME #90 tabs 01/07/23 01/26/23 Unknown Rx tablet,extended release 24 hr apixaban 5 mg tablet (Eliquis) 5 mg PO BID #180 tabs 01/24/23 01/26/23 Unknown Rx clopidogrel 75 mg tablet 75 mg PO QAM 01/26/23 01/26/23 Unknown History enalapril maleate 2.5 mg tablet 2.5 mg PO QAM 01/26/23 01/26/23 Unknown History lansoprazole 30 mg capsule,delayed 30 mg PO QAM 01/26/23 01/26/23 Unknown History release levothyroxine 112 mcg tablet 112 mcg PO QAM 01/26/23 01/26/23 Unknown History lidocaine-prilocaine 2.5 %-2.5 % See Rx Instructions .Route .COMPLEX 01/26/23 01/26/23 Unknown History topical cream methenamine hippurate 1 gram tablet 1 g PO QAM 01/26/23 01/26/23 Unknown History nitroglycerin 0.4 mg sublingual 0.4 mg sublingual Q5M PRN Chest 01/26/23 01/26/23 Unknown History tablet (Nitrostat) Pain omega-3 acid ethyl esters 1 gram 3 cap PO DAILY 01/26/23 01/26/23 Unknown History capsule tizanidine 4 mg tablet 4 mg PO Q6H PRN Muscle Spasm 01/26/23 01/26/23 Unknown History hydrocodone 5 mg-acetaminophen 325 1 tab PO Q6H PRN pain 7 days #28 01/28/23 Unknown Rx mg tablet tabs Allergies Allergy/AdvReac Type Severity Reaction Status Date / Time hepatitis B immune globulin Allergy Unknown Unknown Verified 01/26/23 09:23 Current Medications Generic Name Dose Route Start Last Admin Trade Name Freq PRN Reason Stop Dose Admin Acetaminophen 650 mg 01/29/23 15:52 01/29/23 17:21 Acetaminophen 325 Mg Tablet PO 650 mg Q6H PRN Administration MILD PAIN Albuterol/Ipratropium 3 ml 01/27/23 18:04 01/30/23 11:09 Ipratropium-Albuterol 3 Ml Neb INHALATION 3 ml Q4H.RESPIRATORY PRN Administration SHORTNESS OF BREATH Amitriptyline HCl 50 mg 01/26/23 21:00 01/29/23 20:09 Amitriptyline 25 Mg Tablet PO 50 mg BEDTIME CICI Administration Apixaban 5 mg 01/27/23 10:47 01/30/23 07:52 Apixaban 5 Mg Tablet PO 5 mg BID CICI Administration Calcium Carbonate 1 each 01/26/23 18:00 01/30/23 07:51 Calcium Carb-Vit D 600mg/400unit 1 Tablet PO 1 each BID CICI Administration Chlorhexidine Gluconate 30 ml 01/26/23 13:00 01/30/23 12:09 Chlorhexidine Gluconate 0.12% Btl 473 Ml MUCOUS MEM Not Given QID CICI Clopidogrel Bisulfate 75 mg 01/28/23 06:00 01/30/23 05:10 Clopidogrel 75 Mg Tablet PO 75 mg QAM CICI Administration Cyanocobalamin 1,000 mcg 01/28/23 07:55 01/30/23 07:52 Cyanocobalamin 1,000 Mcg Tablet PO 1,000 mcg DAILY CICI Administration Cyclobenzaprine HCl 5 mg 01/28/23 15:24 01/29/23 08:33 Cyclobenzaprine 10 Mg Tablet PO 5 mg TID PRN Administration MUSCLE SPASMS Docusate Sodium 100 mg 01/26/23 18:00 01/30/23 07:52 Docusate Sodium 100 Mg Capsule PO 100 mg BID CICI Administration Fludrocortisone Acetate 0.1 mg 01/30/23 09:00 01/30/23 09:20 Fludrocortisone 0.1 Mg Tablet PO Not Given DAILY [facility] Gabapentin 600 mg 01/26/23 21:00 01/30/23 14:06 Gabapentin 300 Mg Capsule PO Not Given TID [facility] Hydrocortisone Sodium Succinate 50 mg 01/30/23 09:00 01/30/23 09:46 Hydrocortisone 100 Mg/2 Ml Sdv IVP 01/30/23 21:01 50 mg Q12H CICI Administration Ceftriaxone Sodium 1,000 mg/ 50 mls @ 100 mls/hr 01/30/23 08:45 01/30/23 10:42 Sodium Chloride IV Infused Q24H [facility] Infusion Protocol Levothyroxine Sodium 112 mcg 01/28/23 06:00 08/09/23 05:10 Levothyroxine 112 Mcg Tablet PO 112 mcg QAM CICI Administration Metoclopramide HCl 5 mg 01/30/23 14:36 01/30/23 14:46 Metoclopramide 5 Mg/Ml Sdv 2 Ml IVP 5 mg Q6H PRN Administration NAUSEA AND VOMITING Midodrine 5 mg 01/28/23 15:00 01/30/23 14:04 Midodrine 5 Mg Tablet PO 5 mg TID CICI Administration Mirtazapine 30 mg 01/26/23 21:00 01/29/23 20:09 Mirtazapine 30 Mg Tablet PO 30 mg BEDTIME CICI Administration Multivitamins Therapeutic 1 tab 01/27/23 09:00 01/30/23 07:51 Multivitamin Therapeutic Tablet PO 1 tab DAILY CICI Administration Ondansetron HCl 4 mg 01/26/23 12:38 01/30/23 12:58 Ondansetron 2 Mg/Ml Sdv 2 Ml IVP 4 mg Q4H PRN Administration NAUSEA AND VOMITING Pantoprazole Sodium 40 mg 01/30/23 08:45 01/30/23 09:46 Pantoprazole 40 Mg Sdv IVP 40 mg Q12H CICI Administration Polysaccharide Iron Complex 150 mg 01/26/23 18:00 01/30/23 07:52 Iron Polysaccharide Complex 150 Mg Capsule PO 150 mg BIDWM CICI Administration Sucralfate 1 gm 01/30/23 08:45 01/30/23 09:47 Sucralfate 1 Gm Tablet PO 1 gm Q12H CICI Administration PFSH Acute PFSH: Medical History ASHD (arteriosclerotic heart disease) CHF (congestive heart failure) Chronic kidney disease Chronic rhinosinusitis CKD (chronic kidney disease) COPD (chronic obstructive pulmonary disease) Coronary artery disease 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, managed as type 2 Diabetic neuropathy Diabetic peripheral neuropathy associated with type 2 diabetes mellitus Fall with injury Family history of colon cancer requiring screening colonoscopy GERD (gastroesophageal reflux disease) Head injury due to trauma HTN (hypertension) Hyperlipidemia Hypotension Insomnia Myocardial infarction Neck injury Nonscarring hair loss Obesity EDNA (obstructive sleep apnea) Pain associated with defecation Recurrent UTI Renal calculus, left treated with ESWL with resolution S/P extracorporeal shock wave therapy Secondary hyperparathyroidism of renal origin Tobacco abuse Urolithiasis Surgical History H/O bariatric surgery S/P angioplasty with stent Family History Mother , at age 86 CAD (coronary artery disease) Diabetes Myocardial infarction Hypertension Father , AGE 72 Diabetes CAD (coronary artery disease) Cancer LUNG Brother Diabetes CAD (coronary artery disease) Hypertension Sister Diabetes Social History Smoking and tobacco status: current every day smoker cigarettes Alcohol intake: never Adopted: No Caregiver/support person: No Marital status: Legally Current occupational status: retired and disabled Current gender identity: Female Female Reproductive History: Spontaneous abortions: No Vitals/I&O/Wt Last Vital Signs Temp 97.9 F 01/30/23 08:21 Pulse 111 H 01/30/23 14:00 Resp 17 01/30/23 11:10 BP 91/62 01/30/23 10:15 Pulse Ox 95 01/30/23 11:10 O2 Del Method Nasal Cannula 01/30/23 11:10 O2 Flow Rate 3 01/30/23 11:10 01/30/23 01/30/23 01/30/23 06:59 14:59 22:59 Intake Total 190 / 680 50 / 50 Output Total 600 / 600 Balance 190 / 530 -550 / -550 Weight last 48 hrs Weight 207 lb Weight 206 lb 2 oz Weight 207 lb Physical Exam Narrative: General : Patient is well developed , no acute distress, oriented x3 Head : Normal cephalic, a-traumatic. Ears : Pinnae and external canal are normal. Hearing is normal. Eyes : PERRLA, Sclera and injection are normal. No conjunctival discharge. Nose : Mucous membranes are without erythema. Throat : buccal mucosa is normal, gums are without significant recession or hypertrophy. Lungs : Equal chest rise bilaterally, no use of accessory muscles, trachea is midline. Cor : Rate and rhythm are normal. Abdomen : Soft, ND, NT, no g/r/m Extremities : No edema, no cyanosis or clubbing, dorsalis pedis pulses are present bilaterally, non-tender to palpation of calves. Upper extremities are normal bilaterally. Back : non-tender to palpation, no CVA tenderness. Neuro : CN II - XII intact, Upper and lower extremities have equal and full strength Data 01/31/23 04:34 01/31/23 04:34 A&P Assessment and plan (1) GI bleed: (2) Anemia: Plan Bowel prep Tomorrow for EGD and colonoscopy The risks and benefits of the procedure, including bleeding, infection, intestinal perforation requiring surgery, missed lesion were explained to the patient. The patient is understanding of the risks and wishes to proceed. Coding Level of Care Code 71508 Diagnoses GI bleed K92.2 Anemia D64.9
[2023-01-30] MEDS: lactulose oral liq 20 gm/30 mL UDC 30 GM PO (17:46)
--- NOTE | 2023-01-30 18:13 | PC.NURSE ---
PATIENT WAS FLUID OVERLOADED EARLIER THIS MORNING. THIS NURSE ADMINISTERED 20MG OF LASIX PER DR. WILKERSON. PATIENT STARTED GOLYTELY TODAY TO PREP FOR COLONOSCOPY TOMORROW WITH DR. MONTGOMERY. PATIENT HAS HAD NAUSEA MOST OF THE DAY. THIS NURSE HAS ADMINISTERED IV ZOFRAN AND REGLAN. PATIENT HAS NOT HAD A BOWEL MOVEMENT AT THIS TIME. PATIENT DID NOT EAT LUNCH OR SUPPER. DR. MONTGOMERY STARTED PATIENT ON LACTULOSE TO HELP WITH BOWEL PREP. SHE IS CURRENTLY RESTING IN BED AT THIS TIME.
[2023-01-30 18:17] LABS: Hematocrit 26.7 % (37.0-47.0); Hemoglobin 8.7 g/dL (11.5-15.3)
[2023-01-30] MEDS: mirtazapine 30 mg Tablet PO (20:44)
[2023-01-31] VITALS (26 sets, daily range): BP systolic 88–127; BP diastolic 56–87; PULSE 59–131; RESP 12–24; TEMP 36.1–37; O2SAT 4–100
[2023-01-31] MEDS: ipratropium-albuterol 3 mL Neb INHALATION ×3 (01:57→20:29)
--- NOTE | 2023-01-31 03:11 | PC.NURSE ---
@0215 pt lung sounds changed and now sounds wet and crackles present throughout. at start of shift lungs were clear throughout, call placed to DR Waite notifying of condition changed, no new order received, pt BP 108/75 at the time.
[2023-01-31] MEDS: metoclopramide 5 mg/mL SDV 2 mL IVP (03:58)
[2023-01-31 05:16] LABS: Basophils % 0.1 %; Hematocrit 27.9 % (37.0-47.0); Hemoglobin 8.8 g/dL (11.5-15.3); Mean Corpuscular HGB Conc 31.5 g/dL (30.0-36.0); Mean Corpuscular Hemoglobin 33.6 pg (28.0-34.0); Mean Corpuscular Volume 106.5 fl (81-99); Mean Platelet Volume 11.4 fL (7.4-10.4); Monocytes # 0.7 10^3/uL (0.2-0.9); Monocytes % 4.8 %; Neutrophils # 11.67 10^3/uL (1.8-7.7); Neutrophils % 80.3 %; Nucleated Red Blood Cells % 0.2 %; Platelet Count 291 10^3/cmm (130-400); Red Blood Count 2.62 10^6/uL (4.1-5.3); White Blood Count 14.5 10^3/uL (4.0-10.0)
[2023-01-31] MEDS: levothyroxine 112 mcg Tablet PO (05:40)
[2023-01-31 05:41] LABS: Blood Urea Nitrogen 10 mg/dL (8-23); Calcium 8.4 mg/dL (8.5-10.5); Carbon Dioxide 27 mmol/L (22-29); Chloride 104 mmol/L (98-107); Glomerular Filtration Rate 62.5 mL/min (90-130); Glucose 137 mg/dL (65-115); Osmolality Calculated 299 mOsm/kg (285-295); Sodium 144 mmol/L (136-145)
[2023-01-31 05:47] LABS: Anion Gap 16.9 (5-19); Potassium 3.9 mmol/L (3.5-5.1)
[2023-01-31] MEDS: pantoprazole 40 mg SDV IVP (09:46)
[2023-01-31] MEDS: hydrocortisone 100 mg/2 mL SDV 50 MG IVP (09:46)
[2023-01-31] MEDS: FUROsemide 10 mg/mL SDV 2mL 20 MG IVP (09:47)
[2023-01-31] MEDS: cefTRIAXone 1,000 MG in sodium chloride 0.9% (plus) 50 ML 100 MG IV (09:47)
[2023-01-31 09:48] LABS: NT Pro B Type Natriuretic Pept 46556 pg/mL (0-125)
[2023-01-31] MEDS: fludrocortisone 0.1 mg Tablet PO (10:20)
[2023-01-31] MEDS: midodrine 5 mg TABLET PO ×2 (10:20→14:08)
--- NOTE | 2023-01-31 11:30 | P.ANESUD_ITS ---
Pre-Anesthetic Update Pre-Anesthetic Assessment: Date of Surgery/Procedure: 01/31/23 Preop Skye gnosis: Right trimalleolar ankle fracture Proposed Procedure: Operation Date: 01/26/23 10:05 Proposed Procedures p ORIF Ankle(Right) - Dao Hallman DO Operation Date: 01/31/23 11:45 Proposed Procedures p EGD(Not Applicable) - Constantino Chaparro, DO Any changes to Pre-Anesthetic Assessment?: Yes Changes from Pre-Anesthetic Assessment: anemia Labs Last 48hrs: Short CBC 01/29/23 01/30/23 01/30/23 Range/Units 07:26 04:09 11:54 WBC 7.5 6.8 9.1 (4.0-10.0) 10^3/ uL Hgb 12.0 7.5 L D 8.7 L (11.5-15.3) g/dL Hct 37.5 23.5 L D 26.9 L (37.0-47.0) % MCV 105.0 H 104.4 H 105.9 H (81-99) fl Plt Count 212 181 241 D (130-400) 10^3/c mm Neut % (Auto) 73.3 58.3 73.7 % Neut # (Auto) 5.53 3.95 6.67 (1.8-7.7) 10^3/u L 01/30/23 01/31/23 Range/Units 18:08 04:34 WBC 14.5 H (4.0-10.0) 10^3/ uL Hgb 8.7 L 8.8 L (11.5-15.3) g/dL Hct 26.7 L 27.9 L (37.0-47.0) % MCV 106.5 H (81-99) fl Plt Count 291 (130-400) 10^3/c mm Neut % (Auto) 80.3 % Neut # (Auto) 11.67 H (1.8-7.7) 10^3/u L BMP 01/30/23 01/31/23 04:09 04:34 Sodium 141 144 Potassium 3.5 3.9 Chloride 105 104 Carbon Dioxide 27 27 BUN 7 L 10 Creatinine 0.7 0.9 Glucose 77 137 H Calcium 8.1 L 8.4 L Cardiac Enzymes 01/31/23 Range/Units 04:34 NT-Pro-B Natriuret Pep 90133 H (0-125) pg/mL Liver Function 01/30/23 Range/Units 11:54 Total Bilirubin 0.6 (0.15-1.2) mg/dL Direct Bilirubin 0.30 (0.00-0.30) mg/d L AST 32 (0-32) U/L ALT 10 (0-33) U/L Alkaline Phosphata se 65 (35-105) U/L Albumin 2.9 L (3.5-5.2) g/dL Vitals: Temperature 97.3 F L 01/31/23 11:24 Temperature Source Temporal Artery S can 01/31/23 11:24 Pulse Rate 116 H 01/31/23 11:24 Pulse Rhythm Regular 01/28/23 19:44 Pulse Strength 2+ Slightly Dimin ished 01/31/23 10:00 Respiratory Rate 20 H 01/31/23 11:24 Respiratory Effort Spontaneous, Non- Labored 01/31/23 08:00 Respiratory Depth Normal 01/31/23 08:00 Respiratory Patter n Normal 01/31/23 08:00 Blood Pressure 117/83 01/31/23 11:24 Blood Pressure Sangita n 94 01/31/23 11:24 Blood Pressure Pos ition Semi Fowlers 01/29/23 04:00 Pulse Oximetry 94 01/31/23 11:24 Oxygen Delivery Me thod Non-Rebreather 01/31/23 11:24 Oxygen Flow Rate 4 01/31/23 11:24 Sepsis Recent Feve r Within 48 Hours No 01/25/23 16:47 Exam: Pre-Anes Outpt Exam: alert, oriented x 3, clear to auscultation bilaterally and regular rate & rhythm Additional Exam Findings (including area of procedure): diminshed Cardiac Studies: Echocardiogram 01/29/23 Echocardiogram Limited Views 03/13/20 Sestamibi Stress Test (Cardiology) 01/24
[2023-01-31] MEDS: sodium chloride 0.9% 1,000 ML 30 ML IV (11:35)
--- NOTE | 2023-01-31 12:05 | PM.PN ---
Vitals/I&O/Wt Last Vital Signs Temp 97.3 F L 01/31/23 11:24 Pulse 116 H 01/31/23 11:24 Resp 20 H 01/31/23 11:24 BP 117/83 01/31/23 11:24 Pulse Ox 94 01/31/23 11:24 O2 Del Method Non-Rebreather 01/31/23 11:24 O2 Flow Rate 4 01/31/23 11:24 01/30/23 01/31/23 01/31/23 22:59 06:59 14:59 Intake Total 120 / 170 Output Total 200 / 800 Balance -80 / -630 Weight last 48 hrs Weight 206 lb 11.2 oz Weight 207 lb Weight 206 lb 2 oz Data 01/31/23 04:34 01/31/23 04:34 Micro: Microbiology 01/30/23 18:32 Occult Blood (FIT) - Final Stool Routine Collection 01/25/23 19:58 Blood Culture - Final Blood NO GROWTH AFTER 5 DAYS 01/25/23 19:50 Blood Culture - Final Blood NO GROWTH AFTER 5 DAYS A&P Assessment and plan (1) GI bleed: (2) Anemia: Plan EGD and colonoscopy The risks and benefits of the procedure, including bleeding, infection, intestinal perforation requiring surgery, missed lesion were explained to the patient. The patient is understanding of the risks and wishes to proceed. Attestations Medical Necessity Statement*: Per primary Coding Level of Care Code Acute Code for Chg Fwd Diagnoses GI bleed K92.2 Anemia D64.9
--- NOTE | 2023-01-31 12:57 | ANE.PACU2 ---
Inpatient post-anesthesia follow up: Airway intact: Yes Vital signs: Temperature 97.0 F Pulse Rate [Orthos tatic 131 Standing] Pulse Rate [Orthos tatic 128 Sitting] Pulse Rate [Orthos tatic Lying] 122 Pulse Rate 115 Respiratory Rate 18 Blood Pressure [Or thostatic 108/56 Standing] Blood Pressure [Or thostatic 88/61 Sitting] Blood Pressure [Or thostatic 95/69 Lying] Blood Pressure 100/78 Pulse Oximetry 100 Oxygen Delivery Me thod Oxymask Oxygen Flow Rate 4 Fraction of Inspir ed Oxygen Hydration adequate: Yes Nausea and vomiting: No Pain level: 1 Mental status: Baseline
--- NOTE | 2023-01-31 13:08 | PC.NURSE ---
Report given to BANG Rodriguez. Pt c/o nausea otherwise vitals WNL, FEED GRINDER at bedside upon arrival to floor.
--- NOTE | 2023-01-31 13:32 | P.PN_ITS ---
Subjective Subjective: Patient was seen this morning, does report shortness of breath is on 4 L oxime mask, denies any bloody or black stools she tells me that she can drink the prep, no lightheadedness, no dizziness, her blood pressures remain soft however she has not felt lightheaded or dizzy no chest pain has not passed out, no abdominal pain, she does continue to have right ankle pain, BNP is elevated, will give 1 dose of Lasix this morning, 1 dose of Lasix at noon, increase midodrine to 10 3 times daily, give a dose of hydrocortisone before her EGD for possible adrenal insufficiency, spoke to Dr. Chaparro after EGD, no acute source of bleeding found, Vitals/I&O/Wt Last Vital Signs Temp 97.7 F 01/31/23 13:27 Pulse 116 H 01/31/23 13:27 Resp 20 H 01/31/23 13:27 BP 98/65 01/31/23 13:27 Pulse Ox 97 01/31/23 13:27 O2 Del Method Oxymask 01/31/23 12:41 O2 Flow Rate 4 01/31/23 12:41 01/30/23 01/31/23 01/31/23 22:59 06:59 14:59 Intake Total 120 / 170 300 / 300 Output Total 200 / 800 Balance -80 / -630 300 / 300 Weight last 48 hrs Weight 93.758 kg Weight 93.894 kg Weight 93.497 kg Physical Exam Const: COMMON NORMALS: no acute distress and patient oriented x3 Resp: COMMON NORMALS: normal respiratory effort, No retractions, No use of accessory muscles and clear to auscultation bilaterally AUSCULTATION: clear to auscultation bilaterally Cardio: COMMON NORMALS: regular rate, regular rhythm, S1 normal heart sound present and S2 normal heart sound present RATE: regular rate RHYTHM: regular rhythm HEART SOUNDS: S1 normal heart sound present and S2 normal heart sound present GI: COMMON NORMALS: Normal to inspection, nondistended, normoactive bowel sounds present and non-tender Extremity: NARRATIVE EXTREMITY EXAM: Right ankle, in a cast Neuro: COMMON NORMALS: patient oriented x3 Data 01/31/23 04:34 01/31/23 04:34 Micro: Microbiology 01/30/23 18:32 Occult Blood (FIT) - Final Stool Routine Collection 01/25/23 19:58 Blood Culture - Final Blood NO GROWTH AFTER 5 DAYS 01/25/23 19:50 Blood Culture - Final Blood NO GROWTH AFTER 5 DAYS A&P Assessment and plan (1) Syncope: Syncope likely medication and orthostatic Avoid polypharmacy Monitor blood pressure closely Holding some antihypertensives given soft blood pressure Increase to midodrine to 10mg 3 times daily Fall precautions Supportive care (2) Hypotension: Patient has persistent hypotension, currently asymptomatic -No significant evidence of septic shock, no fevers, no significant leukocytosis -No clinical evidence of cardiogenic shock, no shortness of breath, no chest pain, no JVD -No evidence of obstructive shock, no chest pain, no shortness of breath, is on 3 L -No evidence of anaphylactic reaction -Her hemoglobin has gone down to 7.5, did have a complaint of 1 black tarry stool, Hemoccult stool pending, has very early evidence of iron deficiency anemia, she is on Eliquis and Plavix so certainly a slow GI bleed could be playing a role, Eliquis on hold, Protonix, Carafate, EGD no acute findings, however Hemoccult stool is positive, she could not complete colonoscopy, she will require in the outpatient [facility] for now hold Eliquis and Plavix, monitor hemoglobin -She has a history of low blood pressures during her February 2020 admission she was noted to have low blood pressures, after her cath, -Possibly could be a component of medications including oxycodone -Her TSH is within normal limits -Her cortisol is on the lower end given her hypotension, potentially a component of adrenal insufficiency will do a trial of hydrocortisone, fludrocortisone -Does have hypoalbuminemia, 2.9 - cardiac echo The ventricle is not well seen.? The only reasonable view is the ?apical view.? In this view there appears to be normal left ?ventricular size and lower limit of normal left ventricular ?function.? There may be mild left ventricular hypertrophy.? In ?other views there is a suggestion of mild hypokinesis of the ?inferior wall though this cannot be corroborated.? A rough ?estimate of the ejection fraction is 50 to 55%.? There is grade ?2 diastolic dysfunction. ?Normal right ventricular size and systolic function. Severe ?pulmonary hypertension, RVSP 71.7 mmHg. ?Structurally normal mitral valve. Mild mitral valve ?regurgitation. ?Previous echo was performed 03/19/2021.? The only new finding on ?this study is the pulmonary hypertension.? Previous study was ?not able to detect or measure the pulmonary artery pressure due ?to an incomplete tricuspid regurgitation envelope.? Today's ?study may represent an overestimation of the pulmonary pressure ?due to the incomplete tricuspid regurgitation envelope.? ?Clinical correlation is recommended. -Will monitor blood pressures closely -Monitor clinically (3) Acute cystitis: Continue Rocephin. (4) Ankle fracture, right: Orthopedic surgery consulted, appreciate recommendations Status post surgical intervention Procedure done: Right trimalleolar ankle fracture open reduction internal fixation Right ankle syndesmotic fixation Implants: [place] 5 hole anatomic distal fibula plate [place] one third tubular 5 hole plate 4.0 mm x 2 cannulated screws both 55 mm in length Multimodal pain control countinue apixaban and Plavix pending surgery evaluation (5) Hyperlipidemia: Continue statin Qualifiers: Hyperlipidemia type: unspecified Qualified Code(s): E78.5 - Hyperlipidemia, unspecified (6) Acquired hypothyroidism: Continue Synthroid (7) Type 2 diabetes mellitus with diabetic nephropathy: Continue to monitor blood sugars. (8) B12 deficiency: -start cyanocobalamin (9) Anemia: - B12 deficiency -Concerns for early iron deficiency -Concerns for slow GI bleed (10) GI bleed: - Concerns for slow GI bleed with hemoglobin of 7.5 complaint of black tarry stool -Hemoccult stool positive -Monitor hemodynamics closely -Continue Protonix, Carafate -Eliquis placed on hold -Plavix on hold -Monitor hemoglobin -CT abdomen pelvis negative for retroperitoneal bleed -EGD no acute source of bleeding found -Could not complete colonoscopy as she cannot drink the prep will consider as outpatient, Plan 67-year-old female admitted for right ankle fracture. Incentive spirometry. Physical therapy to evaluate and treat. Continue Rocephin. Blood negative so far and urine cultures ecoli Xarelto and Plavix. GI prophylaxis with pantoprazole. Code Status: Full code IVF: None DVT PPx: SCDs, Xarelto. GI PPx: Protonix ABx: Rocephin Diet: Carb consistent. Discharge plan: Home when appropriate. Increase midodrine to 10 3 times daily, 1 dose of hydrocortisone, does have evidence of fluid overload elevated BNP over 49,000, having diastolic CHF exacerbation will give 2 doses of Lasix this morning, potential further doses this evening based on clinical progress, up out of bed into a chair, spoke to general surgery Attestations Medical Necessity Statement*: Patient requires hospitalization for fluid overload, anemia, persistent hypotension Diagnoses Syncope R55 Hypotension I95.9 Acute cystitis N30.00 Ankle fracture, right S82.891A Hyperlipidemia E78.5 Hyperlipidemia type: unspecified Acquired hypothyroidism E03.9 Type 2 diabetes mellitus with diabetic nephropathy E11.21 B12 deficiency E53.8 Anemia D64.9 GI bleed K92.2
--- NOTE | 2023-01-31 13:33 | PC.NURSE ---
Dr. Reece verbal ordered Midodrine 5mg PO one time once patient back from GI Lab
[2023-01-31] MEDS: FUROsemide 10 mg/mL SDV 4mL 40 MG IVP (14:55)
[2023-01-31] MEDS: midodrine 5 mg TABLET 10 MG PO ×2 (16:01→21:06)
[2023-01-31] MEDS: gabapentin 300 mg Capsule 600 MG PO (16:02)
[2023-01-31 17:27] LABS: Glucose Point of Care 125 mg/dL (70-110)
[2023-01-31 18:49] LABS: Hematocrit 26.7 % (37.0-47.0); Hemoglobin 8.5 g/dL (11.5-15.3)
[2023-01-31] MEDS: calcium carb-vit d 600mg/400unit 1 Tablet 1 EACH PO (18:55)
[2023-01-31] MEDS: iron polysaccharide complex 150 mg Capsule PO (18:56)
[2023-01-31] MEDS: mirtazapine 30 mg Tablet PO (21:07)
[2023-01-31] MEDS: amitriptyline 25 mg Tablet 50 MG PO (21:07)
[2023-01-31] MEDS: oxyCODONE 5 mg IR Tab/Cap PO (21:12)
[2023-02-01] VITALS (12 sets, daily range): BP systolic 95–108; BP diastolic 60–75; PULSE 99–119; RESP 16–24; TEMP 36.4–36.9; O2SAT 92–100
[2023-02-01 04:57] LABS: Basophils % 0.2 %; Eosinophils % 0.1 %; Hematocrit 26.4 % (37.0-47.0); Hemoglobin 8.5 g/dL (11.5-15.3); Lymphocytes # 3.8 10^3/uL (0.8-4.8); Lymphocytes % 28.5 %; Mean Corpuscular HGB Conc 32.2 g/dL (30.0-36.0); Mean Corpuscular Volume 105.6 fl (81-99); Mean Platelet Volume 11.5 fL (7.4-10.4); Monocytes # 1.2 10^3/uL (0.2-0.9); Monocytes % 8.8 %; Neutrophils # 8.18 10^3/uL (1.8-7.7); Neutrophils % 61.4 %; Nucleated Red Blood Cells # 0.1 /100WBC; Nucleated Red Blood Cells % 0.5 %; Platelet Count 301 10^3/cmm (130-400); Red Cell Distribution Width 20.2 % (12.1-15.1); White Blood Count 13.3 10^3/uL (4.0-10.0)
[2023-02-01 05:30] LABS: Anion Gap 18.4 (5-19); Blood Urea Nitrogen 14 mg/dL (8-23); Calcium 8.5 mg/dL (8.5-10.5); Carbon Dioxide 26 mmol/L (22-29); Chloride 102 mmol/L (98-107); Glomerular Filtration Rate 49.5 mL/min (90-130); Glucose 107 mg/dL (65-115); Osmolality Calculated 297 mOsm/kg (285-295); Potassium 3.4 mmol/L (3.5-5.1); Sodium 143 mmol/L (136-145)
[2023-02-01 05:31] LABS: Creatinine Clr Calc Pharmacy 55.0954
[2023-02-01] MEDS: levothyroxine 112 mcg Tablet PO (06:17)
[2023-02-01] MEDS: ipratropium-albuterol 3 mL Neb INHALATION ×3 (08:41→21:18)
[2023-02-01] MEDS: potassium chloride ER 20 mEq Tablet 40 MEQ PO (09:31)
[2023-02-01] MEDS: iron polysaccharide complex 150 mg Capsule PO ×2 (09:32→16:22)
[2023-02-01] MEDS: docusate sodium 100 mg Capsule PO ×2 (09:32→16:22)
[2023-02-01] MEDS: gabapentin 300 mg Capsule 600 MG PO ×2 (09:32→16:24)
[2023-02-01] MEDS: calcium carb-vit d 600mg/400unit 1 Tablet 1 EACH PO ×2 (09:32→16:23)
[2023-02-01] MEDS: cefTRIAXone 1,000 MG in sodium chloride 0.9% (plus) 50 ML 100 MG IV (09:33)
[2023-02-01] MEDS: midodrine 5 mg TABLET 10 MG PO ×3 (09:33→20:35)
[2023-02-01] MEDS: multivitamin therapeutic Tablet 1 TAB PO (09:34)
[2023-02-01] MEDS: FUROsemide 10 mg/mL SDV 4mL 40 MG IVP (09:34)
[2023-02-01] MEDS: cyanocobalamin 1,000 mcg Tablet 1000 MCG PO (09:34)
[2023-02-01] MEDS: apixaban 5 mg Tablet PO (16:23)
--- NOTE | 2023-02-01 18:04 | P.PN_ITS ---
Subjective Subjective: Patient was seen this morning, her EGD had no acute findings, she denies any bloody or black stools, Hemoccult was positive for blood she could not complete a colonoscopy but she tells me that she had a colonoscopy 3 months ago which showed polyps which were removed but no other acute sources of bleeding found, we discussed reviewed the risks and benefits of resuming anticoagulation, she recently had a fall and fracture, currently she is at high risk of developing blood clots, high risk of hypercoagulable events, after discussing risk and benefits, she voiced understanding all questions answered, agreed to proceed with anticoagulant therapy here to monitor hemoglobin closely [facility], she voiced understanding of all questions answered, agreed to proceed, she also complains of intermittent shortness of breath, we will give her 1 dose of Lasix, Vitals/I&O/Wt Last Vital Signs Temp 97.5 F L 02/01/23 15:19 Pulse 101 H 02/01/23 15:19 Resp 18 02/01/23 15:19 BP 103/69 02/01/23 15:19 Pulse Ox 95 02/01/23 15:19 O2 Del Method Simple Mask 02/01/23 15:19 O2 Flow Rate 4 02/01/23 13:55 02/01/23 02/01/23 02/01/23 06:59 14:59 22:59 Intake Total 240 / 830 480 / 480 480 / 960 Balance 240 / 630 480 / 480 480 / 960 Weight last 48 hrs Weight 93.758 kg Physical Exam Const: COMMON NORMALS: no acute distress and patient oriented x3 Resp: COMMON NORMALS: normal respiratory effort, No retractions, No use of accessory muscles and clear to auscultation bilaterally AUSCULTATION: clear to auscultation bilaterally Cardio: COMMON NORMALS: regular rate, regular rhythm, S1 normal heart sound present and S2 normal heart sound present RATE: regular rate RHYTHM: regul ar rhythm HEART SOUNDS: S1 normal heart sound present and S2 normal heart sound present GI: COMMON NORMALS: Normal to inspection, nondistended, normoactive bowel sounds present and non-tender Extremity: COMMON NORMALS: no pedal edema Neuro: COMMON NORMALS: patient oriented x3 Psych: COMMON NORMALS: mental status grossly normal Data 02/01/23 04:25 02/01/23 04:25 A&P Assessment and plan (1) Syncope: Syncope likely medication and orthostatic Avoid polypharmacy Monitor blood pressure closely Holding some antihypertensives given soft blood pressure Increase to midodrine to 10mg 3 times daily Fall precautions Supportive care (2) Hypotension: Patient has persistent hypotension, currently asymptomatic -No significant evidence of septic shock, no fevers, no significant leukocytosis -No clinical evidence of cardiogenic shock, no shortness of breath, no chest pain, no JVD -No evidence of obstructive shock, no chest pain, no shortness of breath, is on 3 L -No evidence of anaphylactic reaction -Her hemoglobin has gone down to 7.5, did have a complaint of 1 black tarry stool, Hemoccult stool pending, has very early evidence of iron deficiency anemia, she is on Eliquis and Plavix so certainly a slow GI bleed could be playing a role, Eliquis on hold, Protonix, Carafate, EGD no acute findings, however Hemoccult stool is positive, she could not complete colonoscopy, she will require in the outpatient [facility] for now hold Eliquis and Plavix, monitor hemoglobin -She has a history of low blood pressures during her February 2020 admission she was noted to have low blood pressures, after her cath, -Possibly could be a component of medications including oxycodone -Her TSH is within normal limits -Her cortisol is on the lower end given her hypotension, potentially a component of adrenal insufficiency, will hold off on further hydrocortisone fludrocortisone as she is developed fluid overload -Does have hypoalbuminemia, 2.9 - cardiac echo The ventricle is not well seen.? The only reasonable view is the ?apical view.? In this view there appears to be normal left ?ventricular size and lower limit of normal left ventricular ?function.? There may be mild left ventricular hypertrophy.? In ?other views there is a suggestion of mild hypokinesis of the ?inferior wall though this cannot be corroborated.? A rough ?estimate of the ejection fraction is 50 to 55%.? There is grade ?2 diastolic dysfunction. ?Normal right ventricular size and systolic function. Severe ?pulmonary hypertension, RVSP 71.7 mmHg. ?Structurally normal mitral valve. Mild mitral valve ?regurgitation. ?Previous echo was performed 03/19/2021.? The only new finding on ?this study is the pulmonary hypertension.? Previous study was ?not able to detect or measure the pulmonary artery pressure due ?to an incomplete tricuspid regurgitation envelope.? Today's ?study may represent an overestimation of the pulmonary pressure ?due to the incomplete tricuspid regurgitation envelope.? ?Clinical correlation is recommended. -Will monitor blood pressures closely -Monitor clinically (3) Acute cystitis: Continue Rocephin. (4) Ankle fracture, right: Orthopedic surgery consulted, appreciate recommendations Status post surgical intervention Procedure done: Right trimalleolar ankle fracture open reduction internal fixation Right ankle syndesmotic fixation Implants: [place] 5 hole anatomic distal fibula plate [place] one third tubular 5 hole plate 4.0 mm x 2 cannulated screws both 55 mm in length Multimodal pain control countinue apixaban and Plavix pending surgery evaluation (5) Hyperlipidemia: Continue statin Qualifiers: Hyperlipidemia type: unspecified Qualified Code(s): E78.5 - H yperlipidemia, unspecified (6) Acquired hypothyroidism: Continue Synthroid (7) Type 2 diabetes mellitus with diabetic nephropathy: Continue to monitor blood sugars. (8) B12 deficiency: -start cyanocobalamin (9) Anemia: - B12 deficiency -Concerns for early iron deficiency -Concerns for slow GI bleed (10) GI bleed: - Concerns for slow GI bleed with hemoglobin of 7.5 complaint of black tarry stool -Hemoccult stool positive, however EGD no acute source of bleeding found, she had a colonoscopy done 3 months ago which she had polyps which were removed, she could not complete a colonoscopy during this hospitalization -Monitor hemodynamics closely -Continue Protonix, Carafate -Resume Eliquis 5 mg twice daily -Plavix on hold -Monitor hemoglobin -CT abdomen pelvis negative for retroperitoneal bleed -EGD no acute source of bleeding found -Could not complete colonoscopy as she cannot drink the prep will consider as outpatient, Plan 67-year-old female admitted for right ankle fracture. Incentive spirometry. Physical therapy to evaluate and treat. Continue Rocephin. Blood negative so far and urine cultures ecoli Xarelto and Plavix. GI prophylaxis with pantoprazole. Code Status: Full code IVF: None DVT PPx: SCDs, Xarelto. GI PPx: Protonix ABx: Rocephin Diet: Carb consistent. Discharge plan: Home when appropriate. Increase midodrine to 10 3 times daily, 1 dose of Lasix today monitor hemoglobin, as she is going to resume Eliquis, up out of bed, stop hydrocortisone fludrocortisone as it is likely causing fluid overload Attestations Medical Necessity Statement*: Patient requires hospitalization for low blood pressures, anemia, resuming anticoagulation, monitor hemoglobin as inpatient Diagnoses Syncope R55 Hypotension I95.9 Acute cystitis N30.00 Ankle fracture, right S82.891A Hyperlipidemia E78.5 Hyperlipidemia type: unspecified Acquired hypothyroidism E03.9 Type 2 diabetes mellitus with diabetic nephropathy E11.21 B12 deficiency E53.8 Anemia D64.9 GI bleed K92.2
[2023-02-01 18:34] LABS: Basophils % 0.3 %; Eosinophils % 0.2 %; Hematocrit 27.6 % (37.0-47.0); Hemoglobin 8.5 g/dL (11.5-15.3); Lymphocytes # 3.6 10^3/uL (0.8-4.8); Lymphocytes % 26.8 %; Mean Corpuscular HGB Conc 30.8 g/dL (30.0-36.0); Mean Corpuscular Hemoglobin 33.7 pg (28.0-34.0); Mean Corpuscular Volume 109.5 fl (81-99); Mean Platelet Volume 11.2 fL (7.4-10.4); Monocytes # 1.3 10^3/uL (0.2-0.9); Monocytes % 9.4 %; Neutrophils # 8.36 10^3/uL (1.8-7.7); Neutrophils % 62.1 %; Nucleated Red Blood Cells # 0.1 /100WBC; Nucleated Red Blood Cells % 0.8 %; Platelet Count 316 10^3/cmm (130-400); Red Blood Count 2.52 10^6/uL (4.1-5.3); Red Cell Distribution Width 20.5 % (12.1-15.1); White Blood Count 13.5 10^3/uL (4.0-10.0)
[2023-02-01] MEDS: mirtazapine 30 mg Tablet PO (20:35)
[2023-02-01] MEDS: amitriptyline 25 mg Tablet 50 MG PO (20:35)
[2023-02-02] VITALS (10 sets, daily range): BP systolic 93–110; BP diastolic 59–79; PULSE 101–118; RESP 17–22; TEMP 36.3–36.8; O2SAT 93–100
[2023-02-02] MEDS: levothyroxine 112 mcg Tablet PO (06:13)
[2023-02-02] MEDS: ipratropium-albuterol 3 mL Neb INHALATION ×3 (06:29→20:11)
[2023-02-02 06:32] LABS: Anion Gap 17.4 (5-19); Blood Urea Nitrogen 17 mg/dL (8-23); Calcium 8.5 mg/dL (8.5-10.5); Carbon Dioxide 27 mmol/L (22-29); Chloride 97 mmol/L (98-107); Glomerular Filtration Rate 55.3 mL/min (90-130); Glucose 116 mg/dL (65-115); Osmolality Calculated 289 mOsm/kg (285-295); Potassium 3.4 mmol/L (3.5-5.1); Sodium 138 mmol/L (136-145)
[2023-02-02 06:33] LABS: Basophils % 0.2 %; Eosinophils % 0.2 %; Hematocrit 26.8 % (37.0-47.0); Hemoglobin 8.2 g/dL (11.5-15.3); Lymphocytes # 3.5 10^3/uL (0.8-4.8); Lymphocytes % 28.2 %; Mean Corpuscular HGB Conc 30.6 g/dL (30.0-36.0); Mean Corpuscular Hemoglobin 33.2 pg (28.0-34.0); Mean Corpuscular Volume 108.5 fl (81-99); Mean Platelet Volume 11.4 fL (7.4-10.4); Monocytes % 8.3 %; Neutrophils # 7.54 10^3/uL (1.8-7.7); Neutrophils % 61.7 %; Nucleated Red Blood Cells # 0.1 /100WBC; Platelet Count 287 10^3/cmm (130-400); Red Blood Count 2.47 10^6/uL (4.1-5.3); Red Cell Distribution Width 20.3 % (12.1-15.1); White Blood Count 12.2 10^3/uL (4.0-10.0)
[2023-02-02 07:05] LABS: NT Pro B Type Natriuretic Pept 59094 pg/mL (0-125)
[2023-02-02] MEDS: iron polysaccharide complex 150 mg Capsule PO ×2 (08:13→17:26)
[2023-02-02] MEDS: cefTRIAXone 1,000 MG in sodium chloride 0.9% (plus) 50 ML 100 MG IV (08:14)
[2023-02-02] MEDS: cyanocobalamin 1,000 mcg Tablet 1000 MCG PO (08:14)
[2023-02-02] MEDS: calcium carb-vit d 600mg/400unit 1 Tablet 1 EACH PO ×2 (08:14→17:26)
[2023-02-02] MEDS: docusate sodium 100 mg Capsule PO ×2 (08:14→17:25)
[2023-02-02] MEDS: apixaban 5 mg Tablet PO ×2 (08:14→17:26)
[2023-02-02] MEDS: midodrine 5 mg TABLET 10 MG PO ×3 (08:15→20:46)
[2023-02-02] MEDS: gabapentin 300 mg Capsule 600 MG PO ×3 (08:15→20:47)
[2023-02-02] MEDS: multivitamin therapeutic Tablet 1 TAB PO (08:30)
[2023-02-02] MEDS: potassium chloride ER 20 mEq Tablet 40 MEQ PO (09:48)
--- NOTE | 2023-02-02 10:33 | XRR_ITS ---
PROCEDURE INFORMATION: Exam: XR Chest Exam date and time: 02/02/2023 11:15 AM Age: 67 years old Clinical indication: Shortness of breath; Additional info: SOB TECHNIQUE: Imaging protocol: Radiologic exam of the chest. Views: 1 view. COMPARISON: CR (CHEST, ) 01/30/2023 6:44 AM FINDINGS: Lungs: There is mild peribronchial wall thickening. No pulmonary consolidation. Subsegmental atelectasis or scarring bilaterally. Pleural spaces: No pleural effusion. No pneumothorax. Heart/Mediastinum: The cardiac silhouette is unchanged. No gross evidence of pneumomediastinum. Diaphragm: Mild persistent elevation of the right hemidiaphragm. Bones/joints: No gross fracture. XR/XR chest 1V portable 70200 IMPRESSION: There is mild peribronchial wall thickening; query viral infection/bronchitis, chronic bronchitis and/or asthma.
--- NOTE | 2023-02-02 10:55 | PC.OT ---
OT treatment attempted this AM. Patient pleasantly declined due to shortness of breath and increased fatigue. Patient had just received breathing treatment and voiced not feeling well. Hospitalist entered room to assess patient. Will attempt tx later if able and patient agreeable. Schuyler James, OTR/L
--- NOTE | 2023-02-02 11:18 | PC.SOCIAL ---
IMM update IMM updated with patient. Verbalized an understanding. Copy pg 2 provided. Initialled, dated, timed, and placed in chart.
--- NOTE | 2023-02-02 16:23 | P.PN_ITS ---
Subjective Subjective: Patient was seen this morning, she tells me that she feels short of breath this morning, she did not sleep last night, no fevers, no chills, Vitals/I&O/Wt Last Vital Signs Temp 97.4 F L 02/02/23 15:22 Pulse 108 H 02/02/23 15:22 Resp 18 02/02/23 15:22 BP 104/72 02/02/23 15:22 Pulse Ox 99 02/02/23 15:22 O2 Del Method Simple Mask 02/02/23 15:22 O2 Flow Rate 4 02/02/23 08:00 02/02/23 02/02/23 02/02/23 06:59 14:59 22:59 Intake Total 250 / 1260 1010 / 1010 Balance 250 / 1260 1010 / 1010 Physical Exam Const: COMMON NORMALS: no acute distress and patient oriented x3 Resp: COMMON NORMALS: normal respiratory effort, No retractions and No use of accessory muscles AUSCULTATION: crackles Cardio: COMMON NORMALS: regular rate, regular rhythm, S1 normal heart sound present and S2 normal heart sound present RATE: regular rate RHYTHM: regular rhythm HEART SOUNDS: S1 normal heart sound present and S2 normal heart sound present GI: COMMON NORMALS: Normal to inspection, nondistended, normoactive bowel sounds present and non-tender Extremity: COMMON NORMALS: no pedal edema Neuro: COMMON NORMALS: patient oriented x3 Psych: COMMON NORMALS: mental status grossly normal Data 02/02/23 06:24 02/02/23 04:56 A&P Assessment and plan (1) Syncope: Syncope likely medication and orthostatic, resolved Avoid polypharmacy Monitor blood pressure closely Holding some antihypertensives given soft blood pressure Increase to midodrine to 10mg 3 times daily Fall precautions Supportive care (2) Hypotension: Patient has persistent hypotension, currently asymptomatic -No significant evidence of septic shock, no fevers, no significant leukocytosis -No clinical evidence of cardiogenic shock, no shortness of breath, no chest pain, no JVD -No evidence of obstructive shock, no chest pain, no shortness of breath, is on 3 L -No evidence of anaphylactic reaction -Her hemoglobin has gone down to 7.5, did have a complaint of 1 black tarry stool, Hemoccult stool pending, has very early evidence of iron deficiency anemia, she is on Eliquis and Plavix so certainly a slow GI bleed could be playing a role, Eliquis on hold, Protonix, Carafate, EGD no acute findings, however Hemoccult stool is positive, she could not complete colonoscopy, she will require in the outpatient [facility] for now hold Eliquis and Plavix, monitor hemoglobin -She has a history of low blood pressures during her February 2020 admission she was noted to have low blood pressures, after her cath, -Possibly could be a component of medications including oxycodone -Her TSH is within normal limits -Her cortisol is on the lower end given her hypotension, potentially a component of adrenal insufficiency, will hold off on further hydrocortisone fludrocortisone as she is developed fluid overload -Does have hypoalbuminemia, 2.9 - cardiac echo The ventricle is not well seen.? The only reasonable view is the ?apical view.? In this view there appears to be normal left ?ventricular size and lower limit of normal left ventricular ?function.? There may be mild left ventricular hypertrophy.? In ?other views there is a suggestion of mild hypokinesis of the ?inferior wall though this cannot be corroborated.? A rough ?estimate of the ejection fraction is 50 to 55%.? There is grade ?2 diastolic dysfunction. ?Normal right ventricular size and systolic function. Severe ?pulmonary hypertension, RVSP 71.7 mmHg. ?Structurally normal mitral valve. Mild mitral valve ?regurgitation. ?Previous echo was performed 03/19/2021.? The only new finding on ?this study is the pulmonary hypertension.? Previous study was ?not able to detect or measure the pulmonary artery pressure due ?to an incomplete tricuspid regurgitation envelope.? Today's ?study may represent an overestimation of the pulmonary pressure ?due to the incomplete tricuspid regurgitation envelope.? ?Clinical correlation is recommended. -Will monitor blood pressures closely -Monitor clinically (3) Acute cystitis: Continue Rocephin. (4) Ankle fracture, right: Orthopedic surgery consulted, appreciate recommendations Status post surgical intervention Procedure done: Right trimalleolar ankle fracture open reduction internal fixation Right ankle syndesmotic fixation Implants: [employer] 5 hole anatomic distal fibula plate [employer] one third tubular 5 hole plate 4.0 mm x 2 cannulated screws both 55 mm in length Multimodal pain control countinue apixaban and Plavix pending surgery evaluation (5) Hyperlipidemia: Continue statin Qualifiers: Hyperlipidemia type: unspecified Qualified Code(s): E78.5 - Hyp erlipidemia, unspecified (6) Acquired hypothyroidism: Continue Synthroid (7) Type 2 diabetes mellitus with diabetic nephropathy: Continue to monitor blood sugars. (8) B12 deficiency: -start cyanocobalamin (9) Anemia: - B12 deficiency -Concerns for early iron deficiency -Concerns for slow GI bleed (10) GI bleed: - Concerns for slow GI bleed with hemoglobin of 7.5 complaint of black tarry stool -Hemoccult stool positive, however EGD no acute source of bleeding found, she had a colonoscopy done 3 months ago which she had polyps which were removed, she could not complete a colonoscopy during this hospitalization -Monitor hemodynamics closely -Continue Protonix, Carafate -Resume Eliquis 5 mg twice daily -Plavix on hold -Monitor hemoglobin -CT abdomen pelvis negative for retroperitoneal bleed -EGD no acute source of bleeding found -Could not complete colonoscopy as she cannot drink the prep will consider as outpatient, (11) CHF exacerbation: With evidence of fluid overload chest x-ray showing fluid overload, BNP over 5900, has received daily diuresis for the last 48 hours we will give another dose of IV Lasix today, monitor respiratory status closely Plan 67-year-old female admitted for right ankle fracture. Incentive spirometry. Physical therapy to evaluate and treat. Continue Rocephin. Blood negative so far and urine cultures ecoli Xarelto and Plavix. GI prophylaxis with pantoprazole. Code Status: Full code IVF: None DVT PPx: SCDs, Xarelto. GI PPx: Protonix ABx: Rocephin Diet: Carb consistent. Discharge plan: Home when appropriate. Up out of bed, Lasix 40 mg IV 1 time today, monitor hemoglobin for concerns for GI bleed closely as she is on Eliquis, chest x-ray, Attestations Medical Necessity Statement*: Patient requires hospitalization for diastolic CHF requiring diuresis, GI bleed requiring hemoglobin monitoring Diagnoses Syncope R55 Hypotension I95.9 Acute cystitis N30.00 Ankle fracture, right S82.891A Hyperlipidemia E78.5 Hyperlipidemia type: unspecified Acquired hypothyroidism E03.9 Type 2 diabetes mellitus with diabetic nephropathy E11.21 B12 deficiency E53.8 Anemia D64.9 GI bleed K92.2 CHF exacerbation I50.9
[2023-02-02] MEDS: FUROsemide 10 mg/mL SDV 4mL 40 MG IVP (18:34)
[2023-02-02] MEDS: amitriptyline 25 mg Tablet 50 MG PO (20:46)
[2023-02-02] MEDS: mirtazapine 30 mg Tablet PO (20:46)
[2023-02-03] VITALS (13 sets, daily range): BP systolic 94–106; BP diastolic 59–72; PULSE 95–109; RESP 15–20; TEMP 36.4–36.6; O2SAT 93–99
[2023-02-03] MEDS: ipratropium-albuterol 3 mL Neb INHALATION ×4 (01:19→19:51)
[2023-02-03] MEDS: clopidogrel 75 mg Tablet PO (05:22)
[2023-02-03] MEDS: levothyroxine 112 mcg Tablet PO (05:22)
[2023-02-03 05:47] LABS: Basophils % 0.2 %; Eosinophils # 0.1 10^3/uL (0.0-0.8); Eosinophils % 0.4 %; Hematocrit 29.2 % (37.0-47.0); Hemoglobin 8.9 g/dL (11.5-15.3); Lymphocytes # 2.8 10^3/uL (0.8-4.8); Mean Corpuscular HGB Conc 30.5 g/dL (30.0-36.0); Mean Corpuscular Hemoglobin 33.7 pg (28.0-34.0); Mean Corpuscular Volume 110.6 fl (81-99); Mean Platelet Volume 11.6 fL (7.4-10.4); Monocytes # 0.9 10^3/uL (0.2-0.9); Monocytes % 7.6 %; Neutrophils % 65.7 %; Nucleated Red Blood Cells # 0.1 /100WBC; Nucleated Red Blood Cells % 0.7 %; Platelet Count 325 10^3/cmm (130-400); Red Blood Count 2.64 10^6/uL (4.1-5.3); Red Cell Distribution Width 20.8 % (12.1-15.1); White Blood Count 11.3 10^3/uL (4.0-10.0)
[2023-02-03 06:18] LABS: Anion Gap 21.9 (5-19); Blood Urea Nitrogen 17 mg/dL (8-23); Calcium 8.6 mg/dL (8.5-10.5); Carbon Dioxide 27 mmol/L (22-29); Chloride 96 mmol/L (98-107); Glomerular Filtration Rate 49.5 mL/min (90-130); Glucose 114 mg/dL (65-115); Osmolality Calculated 294 mOsm/kg (285-295); Potassium 3.9 mmol/L (3.5-5.1); Sodium 141 mmol/L (136-145)
[2023-02-03 06:20] LABS: Creatinine Clr Calc Pharmacy 55.0954
[2023-02-03 07:23] LABS: NT Pro B Type Natriuretic Pept > 70000 pg/mL (0-125)
[2023-02-03] MEDS: docusate sodium 100 mg Capsule PO ×2 (08:25→17:41)
[2023-02-03] MEDS: calcium carb-vit d 600mg/400unit 1 Tablet 1 EACH PO ×2 (08:25→17:41)
[2023-02-03] MEDS: iron polysaccharide complex 150 mg Capsule PO ×2 (08:25→17:41)
[2023-02-03] MEDS: midodrine 5 mg TABLET 10 MG PO ×3 (08:25→19:32)
[2023-02-03] MEDS: apixaban 5 mg Tablet PO ×2 (08:25→17:41)
[2023-02-03] MEDS: gabapentin 300 mg Capsule 600 MG PO ×3 (08:25→19:32)
[2023-02-03] MEDS: multivitamin therapeutic Tablet 1 TAB PO (08:26)
[2023-02-03] MEDS: cefTRIAXone 1,000 MG in sodium chloride 0.9% (plus) 50 ML 100 MG IV (08:26)
[2023-02-03] MEDS: cyanocobalamin 1,000 mcg Tablet 1000 MCG PO (08:26)
[2023-02-03] MEDS: potassium chloride ER 20 mEq Tablet 40 MEQ PO (09:16)
[2023-02-03] MEDS: FUROsemide 10 mg/mL SDV 4mL 40 MG IVP (09:16)
[2023-02-03 11:16] LABS: Adenovirus Not Detected (NOT DETECT); Chlamydia Pneumoniae Not Detected (NOT DETECT); Coronavirus 229E,HKU1,NL63,OC4 Not Detected (NOT DETECT); Human Metapneumovirus Not Detected (NOT DETECT); Human Rhinovirus/Enterovirus Not Detected (NOT DETECT); Influenza A Not Detected (NOT DETECT); Influenza A H1 Not Detected (NOT DETECT); Influenza A H1-2009 Not Detected (NOT DETECT); Influenza A H3 Not Detected (NOT DETECT); Influenza B Not Detected (NOT DETECT); Mycoplasma Pneumoniae Not Detected (NOT DETECT); Parainfluenza Virus Type 1 Not Detected (NOT DETECT); Parainfluenza Virus Type 2 Not Detected (NOT DETECT); Parainfluenza Virus Type 3 Not Detected (NOT DETECT); Parainfluenza Virus Type 4 Not Detected (NOT DETECT); Respiratory Syncytial Virus A Not Detected (NOT DETECT); Respiratory Syncytial Virus B Not Detected (NOT DETECT); SARS-COV-2 Not Detected (NOT DETECT)
--- NOTE | 2023-02-03 15:12 | P.PN_ITS ---
Subjective Subjective: Patient was seen this morning, she is alert oriented x3, she tells me that her shortness of breath is significant improved she is sitting up in a chair, she does report history of smoking, but she tells me she has not smoked since she has been here in the hospital she does not plan on smoking when she goes to the halfway, Vitals/I&O/Wt Last Vital Signs Temp 97.9 F 02/03/23 11:50 Pulse 101 H 02/03/23 14:34 Resp 18 02/03/23 14:26 BP 106/72 02/03/23 11:50 Pulse Ox 95 02/03/23 14:26 O2 Del Method Nasal Cannula 02/03/23 14:26 O2 Flow Rate 4 02/03/23 14:26 02/03/23 02/03/23 02/03/23 06:59 14:59 22:59 Intake Total 1010 / 1010 Output Total 500 / 500 Balance 510 / 510 Physical Exam Const: COMMON NORMALS: no acute distress and patient oriented x3 Resp: COMMON NORMALS: normal respiratory effort, No retractions and No use of accessory muscles AUSCULTATION: crackles Cardio: COMMON NORMALS: regular rate, regular rhythm, S1 normal heart sound present and S2 normal heart sound present RATE: regular rate RHYTHM: regular rhythm HEART SOUNDS: S1 normal heart sound present and S2 normal heart sound present GI: COMMON NORMALS: Normal to inspection, nondistended, normoactive bowel sounds present and non-tender Extremity: COMMON NORMALS: no pedal edema Neuro: COMMON NORMALS: patient oriented x3 Psych: COMMON NORMALS: mental status grossly normal Data 02/03/23 05:13 02/03/23 05:13 A&P Assessment and plan (1) Syncope: Syncope likely medication and orthostatic, resolved Avoid polypharmacy Monitor blood pressure closely Holding some antihypertensives given soft blood pressure Increase to midodrine to 10mg 3 times daily Fall precautions Supportive care (2) Hypotension: Patient has persistent hypotension, currently asymptomatic -No significant evidence of septic shock, no fevers, no significant leukocytosis -No clinical evidence of cardiogenic shock, no shortness of breath, no chest pain, no JVD -No evidence of obstructive shock, no chest pain, no shortness of breath, is on 3 L -No evidence of anaphylactic reaction -Her hemoglobin has gone down to 7.5, did have a complaint of 1 black tarry stool, Hemoccult stool positive, has very early evidence of iron deficiency anemia, she is on Eliquis and Plavix so certainly a slow GI bleed could be playing a role, initially I had Eliquis and Plavix on hold, Protonix, Carafate, EGD no acute findings, however Hemoccult stool is positive, she could not complete colonoscopy, 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, I resumed Eliquis and Plavix, hgn stable, monitor hemoglobin -She has a history of low blood pressures during her February 2020 admission she was noted to have low blood pressures, after her cath, -Possibly could be a component of medications including oxycodone -Her TSH is within normal limits -Her cortisol is on the lower end given her hypotension, potentially a component of adrenal insufficiency, I had started her on hydrocortisone with flu drocortisone, she subsequently developed fluid overload, will hold off on further hydrocortisone fludrocortisone as she is developed fluid overload -Does have hypoalbuminemia, 2.9 - cardiac echo The ventricle is not well seen.? The only reasonable view is the ?apical view.? In this view there appears to be normal left ?ventricular size and lower limit of normal left ventricular ?function.? There may be mild left ventricular hypertrophy.? In ?other views there is a suggestion of mild hypokinesis of the ?inferior wall though this cannot be corroborated.? A rough ?estimate of the ejection fraction is 50 to 55%.? There is grade ?2 diastolic dysfunction. ?Normal right ventricular size and systolic function. Severe ?pulmonary hypertension, RVSP 71.7 mmHg. ?Structurally normal mitral valve. Mild mitral valve ?regurgitation. ?Previous echo was performed 03/19/2021.? The only new finding on ?this study is the pulmonary hypertension.? Previous study was ?not able to detect or measure the pulmonary artery pressure due ?to an incomplete tricuspid regurgitation envelope.? Today's ?study may represent an overestimation of the pulmonary pressure ?due to the incomplete tricuspid regurgitation envelope.? ?Clinical correlation is recommended. -Will monitor blood pressures closely -Monitor clinically (3) Acute cystitis: Continue Rocephin. (4) Ankle fracture, right: Orthopedic surgery consulted, appreciate recommendations Status post surgical intervention Procedure done: Right trimalleolar ankle fracture open reduction internal fixation Right ankle syndesmotic fixation Implants: [place] 5 hole anatomic distal fibula plate [place] one third tubular 5 hole plate 4.0 mm x 2 cannulated screws both 55 mm in length Multimodal pain control countinue apixaban and Plavix pending surgery evaluation (5) Hyperlipidemia: Continue statin Qualifiers: Hyperlipidemia type: unspecified Qualified Code(s): E78.5 - Hyperlipidemia, unspecified (6) Acquired hypothyroidism: Continue Synthroid (7) Type 2 diabetes mellitus with diabetic nephropathy: Continue to monitor blood sugars. (8) B12 deficiency: -start cyanocobalamin (9) Anemia: - B12 deficiency -Concerns for early iron deficiency -Concerns for slow GI bleed (10) GI bleed: -Currently hemoglobin stable on antiplatelet and anticoagulant therapy - Concerns for slow GI bleed with hemoglobin of 7.5 complaint of black tarry stool -Hemoccult stool positive, however EGD no acute source of bleeding found, she had a colonoscopy done 3 months ago which she had polyps which were removed, she could not complete a colonoscopy during this hospitalization -Monitor hemodynamics closely -Continue Protonix, Carafate -Resume Eliquis 5 mg twice daily -Plavix on hold -Monitor hemoglobin -CT abdomen pelvis negative for retroperitoneal bleed -EGD no acute source of bleeding found -Could not complete colonoscopy as she cannot drink the prep will consider as outpatient, (11) CHF exacerbation: With evidence of fluid overload chest x-ray showing fluid overload, BNP over 70,000, will continue to daily diuresis Plan 67-year-old female admitted for right ankle fracture. Incentive spirometry. Physical therapy to evaluate and treat. Continue Rocephin. Blood negative so far and urine cultures ecoli Xarelto and Plavix. GI prophylaxis with pantoprazole. Code Status: Full code IVF: None DVT PPx: SCDs, Xarelto. GI PPx: Protonix ABx: Rocephin Diet: Carb consistent. Discharge plan: Home when appropriate. Plan for today monitor hemoglobin continue Eliquis, continue Plavix, respiratory viral panel, 1 dose of IV Lasix as BNP is over 70,000 Attestations Medical Necessity Statement*: Patient requires hospitalization for fluid overload, elevated BNP requiring further diuresis Diagnoses Syncope R55 Hypotension I95.9 Acute cystitis N30.00 Ankle fracture, right S82.891A Hyperlipidemia E78.5 Hyperlipidemia type: unspecified Acquired hypothyroidism E03.9 Type 2 diabetes mellitus with diabetic nephropathy E11.21 B12 deficiency E53.8 Anemia D64.9 GI bleed K92.2 CHF exacerbation I50.9
[2023-02-03] MEDS: amitriptyline 25 mg Tablet 50 MG PO (19:31)
[2023-02-03] MEDS: oxyCODONE 5 mg IR Tab/Cap PO (19:31)
[2023-02-03] MEDS: mirtazapine 30 mg Tablet PO (19:32)
[2023-02-04 02:01] VITALS: PULSE 96; RESP 18; O2SAT 93
[2023-02-04] MEDS: ipratropium-albuterol 3 mL Neb INHALATION ×2 (02:03→08:02)
[2023-02-04 03:42] VITALS: BP 95/60; PULSE 93; RESP 19; TEMP 36.6; O2SAT 90
--- NOTE | 2023-02-04 04:50 | PC.NURSE ---
Patient refusing PO Invega. Patient states I'm supposed to have my Invega shot today.
[2023-02-04] MEDS: levothyroxine 112 mcg Tablet PO (04:52)
[2023-02-04] MEDS: clopidogrel 75 mg Tablet PO (04:52)
[2023-02-04 04:53] LABS: Basophils % 0.5 %; Eosinophils # 0.2 10^3/uL (0.0-0.8); Eosinophils % 1.8 %; Hematocrit 28.1 % (37.0-47.0); Hemoglobin 8.6 g/dL (11.5-15.3); Lymphocytes # 2.9 10^3/uL (0.8-4.8); Mean Corpuscular HGB Conc 30.6 g/dL (30.0-36.0); Mean Corpuscular Volume 111.1 fl (81-99); Mean Platelet Volume 11.4 fL (7.4-10.4); Monocytes # 0.7 10^3/uL (0.2-0.9); Neutrophils # 4.93 10^3/uL (1.8-7.7); Neutrophils % 55.8 %; Nucleated Red Blood Cells % 0.2 %; Platelet Count 288 10^3/cmm (130-400); Red Blood Count 2.53 10^6/uL (4.1-5.3); Red Cell Distribution Width 21.4 % (12.1-15.1); White Blood Count 8.8 10^3/uL (4.0-10.0)
[2023-02-04 05:01] VITALS: RESP 16
[2023-02-04] MEDS: oxyCODONE 5 mg IR Tab/Cap PO (05:01)
[2023-02-04 05:22] LABS: Alanine Aminotransferase 36 U/L (0-33); Albumin Level 2.8 g/dL (3.5-5.2); Alkaline Phosphatase 69 U/L (35-105); Anion Gap 14.5 (5-19); Aspartate Amino Transferase 80 U/L (0-32); Blood Urea Nitrogen 15 mg/dL (8-23); Calcium 8.7 mg/dL (8.5-10.5); Carbon Dioxide 34 mmol/L (22-29); Chloride 99 mmol/L (98-107); Glomerular Filtration Rate 49.5 mL/min (90-130); Glucose 87 mg/dL (65-115); Osmolality Calculated 296 mOsm/kg (285-295); Potassium 4.5 mmol/L (3.5-5.1); Sodium 143 mmol/L (136-145); Total Bilirubin 0.9 mg/dL (0.15-1.2); Total Protein 5.8 g/dL (6.6-8.7)
[2023-02-04 05:23] LABS: Creatinine Clr Calc Pharmacy 55.0954
[2023-02-04 07:30] VITALS: BP 90/57; PULSE 18; RESP 18; TEMP 36.6
[2023-02-04 08:00] VITALS: PULSE 51; RESP 18; O2SAT 100
[2023-02-04] MEDS: FUROsemide 10 mg/mL SDV 4mL 40 MG IVP (09:28)
[2023-02-04] MEDS: cyanocobalamin 1,000 mcg Tablet 1000 MCG PO (09:28)
[2023-02-04] MEDS: iron polysaccharide complex 150 mg Capsule PO (09:28)
[2023-02-04] MEDS: multivitamin therapeutic Tablet 1 TAB PO (09:28)
[2023-02-04] MEDS: midodrine 5 mg TABLET 10 MG PO (09:29)
[2023-02-04] MEDS: docusate sodium 100 mg Capsule PO (09:29)
[2023-02-04] MEDS: apixaban 5 mg Tablet PO (09:30)
[2023-02-04] MEDS: calcium carb-vit d 600mg/400unit 1 Tablet 1 EACH PO (09:30)
[2023-02-04] MEDS: cefTRIAXone 1,000 MG in sodium chloride 0.9% (plus) 50 ML 100 MG IV (09:30)
[2023-02-04] MEDS: gabapentin 300 mg Capsule 600 MG PO (09:31)
--- NOTE | 2023-02-04 10:53 | PC.SOCIAL ---
IMM Update pg 2 of IMM updated and reviewed w/ patient. Copy provided and Copy in chart dated, and initialed.
--- NOTE | 2023-02-04 11:05 | PM.DCS ---
Discharge Providers Date of Admission: 01/26/23 13:41 Date of Discharge: February 04, 2023 Attending Provider at Admission: Mihir Garcia MD Attending Provider at Discharge: Danielito Reece MD Primary Care Provider: Doug Allen DO Diagnoses at Discharge Discharge Diagnosis (1) Syncope: Status: Acute (2) Hypotension: Status: Acute (3) Acute cystitis: Status: Acute (4) Ankle fracture, right: Status: Acute (5) Hyperlipidemia: Status: Acute Qualifiers: Hyperlipidemia type: unspecified Qualified Code(s): E78.5 - Hyperlipidemia, unspecified (6) Acquired hypothyroidism: Status: Acute (7) Type 2 diabetes mellitus with diabetic nephropathy: Status: Acute (8) B12 deficiency: Status: Acute (9) Anemia: Status: Acute (10) GI bleed: Status: Acute (11) CHF exacerbation: Status: Acute Reason for Visit Reason for Visit: syncopal [facility] Course Hospital Course Peri Cid is a 67 year old female with a past medical history significant for type 2 diabetes mellitus, neuropathy, hypothyroidism, insomnia, COPD, obesity, hypertension, sleep apnea, and coronary artery disease who presents to the emergency department with syncope that occurred about 4 hours prior to arrival to the emergency department.? Patient states she was in her usual state of health when she got out of bed and became lightheaded and passed out.? She does endorse right ankle pain.? She currently rates it about a 6 out of 10.? Reports movement makes pain worse.? Rest improves pain.? Denies other alleviating or aggravating factors.? Patient does note that she did take tizanidine and tramadol prior to going to sleep which she thinks may have made her lightheaded. In the ED, patient was found to have soft blood pressure.? Labs reveal urinary tract infection.? Imaging revealed a right distal tib-fib fracture. Patient had a complex hospitalization, please look at my last progress note for details For her syncope, likely medication related, as she reports mixing a muscle relaxer with her pain medication, she did not have any recurrent episodes of orthostatic hypotension, nor did she have any recurrent episodes of syncope, advised strongly of not mixing narcotics with muscle relaxers, discussed morbidity and mortality, she voiced understanding, all questions answered, Patient's hospitalization was complicated by hypotension, present on admission, and she reports a longstanding history of low blood pressures Hypotension: Patient has persistent hypotension, remained asymptomatic throughout her hospitalization -No significant evidence of septic shock, no fevers, no significant leukocytosis -No clinical evidence of cardiogenic shock, no shortness of breath, no chest pain, no JVD -No evidence of obstructive shock, no chest pain, no shortness of breath, is on 3 L -No evidence of anaphylactic reaction -Her hemoglobin has gone down to 7.5, did have a complaint of 1 black tarry stool, Hemoccult stool positive, has very early evidence of iron deficiency anemia, she is on Eliquis and Plavix so certainly a slow GI bleed could be playing a role, initially I had Eliquis and Plavix on hold, Protonix, Carafate, EGD no acute findings, however Hemoccult stool is positive, she could not complete colonoscopy, she will require in the outpatient mesh cutter for, I resumed Eliquis and Plavix, hgn stable, monitor hemoglobin as outpatient -She has a history of low blood pressures during her February 2020 admission she was noted to have low blood pressures, after her cath, -Possibly could be a component of medications including oxycodone -Her TSH is within normal limits -Her cortisol is on the lower end given her hypotension, potentially a component of adrenal insufficiency, I had started her on hydrocortisone with fludrocortisone, she subsequently developed fluid overload and see,? will hold off on further hydrocortisone fludrocortisone as she is developed fluid overload, that required diuresis during hospitalization, will have her follow-up with endocrinology as outpatient -Does have hypoalbuminemia, 2.9, monitor - cardiac echo The ventricle is not well seen.? The only reasonable view is the ?apical view.? In this view there appears to be normal left ?ventricular size and lower limit of normal left ventricular ?function.? There may be mild left ventricular hypertrophy.? In ?other views there is a suggestion of mild hypokinesis of the ?inferior wall though this cannot be corroborated.? A rough ?estimate of the ejection fraction is 50 to 55%.? There is grade ?2 diastolic dysfunction. ?Normal right ventricular size and systolic function. Severe ?pulmonary hypertension, RVSP 71.7 mmHg. ?Structurally normal mitral valve. Mild mitral valve ?regurgitation. ?Previous echo was performed 03/19/2021.? The only new finding on ?this study is the pulmonary hypertension.? Previous study was ?not able to detect or measure the pulmonary artery pressure due ?to an incomplete tricuspid regurgitation envelope.? Today's ?study may represent an overestimation of the pulmonary pressure ?due to the incomplete tricuspid regurgitation envelope.? ?Clinical correlation is recommended. -Will monitor blood pressures closely -We will discharge on midodrine 5 mg 3 times daily -Monitor for lightheadedness and dizziness -Follow-up with primary care provider as outpatient for weaning of midodrine -Follow-up with endocrinology Patient had a UTI during her hospitalization, she completed antibiotic therapy as inpatient During her hospitalization there was concerns for GI bleed, GI bleed: -Currently hemoglobin stable on antiplatelet and anticoagulant therapy - Concerns for slow GI bleed with hemoglobin of 7.5 complaint of black tarry stool -Hemoccult stool positive, however EGD no acute source of bleeding found, she had a colonoscopy done 3 months ago which she had polyps which were removed, she could not complete a colonoscopy during this hospitalization -Monitor hemodynamics closely -Managed with Protonix, Carafate -Resume Eliquis 5 mg twice daily -Plavix on hold -Monitor hemoglobin -CT abdomen pelvis negative for retroperitoneal bleed -EGD no acute source of bleeding found -Could not complete colonoscopy as she cannot drink the prep will consider as outpatient, -Her Eliquis and Plavix were resumed during hospitalization, hemoglobin remained stable, continue on discharge, monitor hemoglobin as outpatient, if she develops bloody or black stools to go to emergency room, follow-up Dr. Gannon for monitoring hemoglobin she might need a colonoscopy as outpatient Patient's hospitalization was complicated with acute diastolic CHF exacerbation, with BNP elevated 70,000 with shortness of breath, likely a combination related to hydrocortisone fludrocortisone, she required inpatient diuresis, she required monitoring as inpatient due to her low blood pressures with diuresis overall her shortness of breath significantly improved, no hypotensive episodes no syncopal episodes, she was ambulating without any significant symptomatology, discharged with Lasix therapy 40 mg every 48 hours with potassium replacement every 48 hours follow-up with Dr. Gannon as outpatient For her ankle fracture, right: Orthopedic surgery consulted, a Status post surgical intervention Procedure done: Right trimalleolar ankle fracture open reduction internal fixation Right ankle syndesmotic fixation Implants: Devika 5 hole anatomic distal fibula plate Devika one third tubular 5 hole plate 4.0 mm x 2 cannulated screws both 55 mm in length Multimodal pain control countinue apixaban and Plavix She is nonweightbearing right lower extremity Patient is hospitalization was complicated with trying to get her over to [facility] facility Initially she had been accepted, but due to prolonged hospitalization we have to resubmit for authorization However patient was adamant about discharge home, on 02/04/2023, I discussed my concerns about her risk of falls, and morbidity and mortality associated, however she tells me that she has home health care her daughter works for home health care, she has a hospital bed she has a wheelchair, her daughter's boyfriend will help her around the home, Physical Exam Const: COMMON NORMALS: no acute distress and patient oriented x3 Resp: COMMON NORMALS: normal respiratory effort, No retractions, No use of accessory muscles and clear to auscultation bilaterally AUSCULTATION: clear to auscultation bilaterally Cardio: COMMON NORMALS: regular rate, regular rhythm, S1 normal heart sound present and S2 normal heart sound present RATE: regular rate RHYTHM: regular rhythm HEART SOUNDS: S1 normal heart sound present and S2 normal heart sound present GI: COMMON NORMALS: Normal to inspection, nondistended, normoactive bowel sounds present and non-tender Extremity: COMMON NORMALS: no pedal edema Neuro: COMMON NORMALS: patient oriented x3 Discharge Data Studies Completed and Pending Completed Studies During Hospitalization Category Date Time Status CT abdomen pelvis wo con [id number] Stat Cat Scan 01/29/23 16:[address] ankle RT wo con* [id number] Stat Cat Scan 01/25/23 21:[address] cervical spine wo con [CT cervical spin wo con* Cat Scan 01/25/23 16:54 Completed [id number]] Stat CT head wo con* [id number] Stat Cat Scan 01/25/23 16:54 Completed XR ankle RT min 3V* [id number] Routine Exams 01/26/23 12:38 Completed XR ankle RT min 3V* [id number] Stat Exams 01/25/23 16:54 Completed XR chest 1V portable [id number] Routine Exams 02/02/23 10:33 Completed XR chest 1V portable [id number] Stat Exams 01/25/23 16:54 Completed XR chest 1V portable [id number] Stat Exams 01/30/23 06:20 Completed CV. echo complete* [id number] Stat Ultrasound 01/29/23 15:52 Completed Pending at discharge Category Date Time Status Complete Blood Count w/Auto AM LABS Lab 02/05/23 04:00 Ordered Complete Blood Count w/Auto AM LABS Lab 02/06/23 04:00 Ordered Comprehensive Metabolic Panel AM LABS Lab 02/05/23 04:00 Ordered Comprehensive Metabolic Panel AM LABS Lab 02/06/23 04:00 Ordered Magnesium AM LABS Lab 02/05/23 04:00 Ordered Magnesium AM LABS Lab 02/06/23 04:00 Ordered NT Pro B Type Natriuretic Pept QAM Lab 02/05/23 06:00 Ordered NT Pro B Type Natriuretic Pept QAM Lab 02/06/23 06:00 Ordered Radiology Impressions Cervical Spine CT 01/25/23 16:54 IMPRESSION: 1. No acute osseous abnormalities of the cervical spine. 2. Increased interstitial lung markings at the lung apices which may reflect interstitial pulmonary edema in the appropriate clinical context. Head CT 01/25/23 16:54 IMPRESSION: No acute intracranial abnormality. Ankle CT 01/25/23 21:20 IMPRESSION: 1. Trimalleolar fractures. 2. Additional fractures of the anterolateral distal tibia. Ankle X-Ray 01/26/23 12:38 IMPRESSION: Improved alignment of comminuted distal tibia and fibula fractures status post ORIF without evidence of immediate complication. Abdomen/Pelvis CT 01/29/23 16:02 IMPRESSION: 1. Negative for focal acute inflammatory process in the abdomen or pelvis. 2. Small to moderate bilateral pleural effusions. 3. Coronary artery atherosclerotic calcifications. 4. Emphysematous changes. 5. Bibasilar atelectasis. 6. Hepatic steatosis. 7. Cholelithiasis. 8. Left kidney punctate nonobstructing calyceal stone. 9. Diverticulosis without diverticulitis. 10. Punctate amount of air the urinary bladder may be iatrogenic. 11. Gastric surgical sutures. Chest X-Ray 02/02/23 10:33 IMPRESSION: There is mild peribronchial wall thickening; query viral infection/bronchitis, chronic bronchitis and/or asthma. Laboratory Results WBC 8.8 10^3/uL (4.0-10.0) 02/04/23 04:43 RBC 2.53 10^6/uL (4.1-5.3) L 02/04/23 04:43 Hgb 8.6 g/dL (11.5-15.3) L 02/04/23 04:43 Hct 28.1 % (37.0-47.0) L 02/04/23 04:43 MCV 111.1 fl (81-99) H 02/04/23 04:43 MCH 34.0 pg (28.0-34.0) 02/04/23 04:43 MCHC 30.6 g/dL (30.0-36.0) 02/04/23 04:43 RDW 21.4 % (12.1-15.1) H 02/04/23 04:43 Plt Count 288 10^3/cmm (130-400) 02/04/23 04:43 MPV 11.4 fL (7.4-10.4) H 02/04/23 04:43 Neut % (Auto) 55.8 % 02/04/23 04:43 Lymph % (Auto) 33.0 % 02/04/23 04:43 [place] % (Auto) 8.0 % 02/04/23 04:43 Eos % (Auto) 1.8 % 02/04/23 04:43 Baso % (Auto) 0.5 % 02/04/23 04:43 Neut # (Auto) 4.93 10^3/uL (1.8-7.7) 02/04/23 04:43 Lymph # (Auto) 2.9 10^3/uL (0.8-4.8) 02/04/23 04:43 [place] # (Auto) 0.7 10^3/uL (0.2-0.9) 02/04/23 04:43 Eos # (Auto) 0.2 10^3/uL (0.0-0.8) 02/04/23 04:43 Baso # (Auto) 0.0 10^3/uL (0.0-0.1) 02/04/23 04:43 Nucleated RBC % (auto) 0.2 % 02/04/23 04:43 Nucleated RBCs # 0.0 /100WBC 02/04/23 04:43 PT 17.60 SECONDS (12.1-14.9) H 01/25/23 16:27 INR 1.40 (0.8-1.2) H 01/25/23 16:27 Sodium 143 mmol/L (136-145) 02/04/23 04:43 Potassium 4.5 mmol/L (3.5-5.1) 02/04/23 04:43 Chloride 99 mmol/L (98-107) 02/04/23 04:43 Carbon Dioxide 34 mmol/L (22-29) H 02/04/23 04:43 Anion Gap 14.5 (5-19) 02/04/23 04:43 BUN 15 mg/dL (8-23) 02/04/23 04:43 Creatinine 1.1 mg/dL (0.5-0.9) H 02/04/23 04:43 GFR Calculation 49.5 mL/min (90-130) L 02/04/23 04:43 Glucose 87 mg/dL (65-115) 02/04/23 04:43 POC Glucose 125 mg/dL (70-110) H 01/31/23 17:20 Estimat Average Glucose 105 01/25/23 16:27 Hemoglobin A1c 5.3 % (4.0-6.0) 01/25/23 16:27 Calculated Osmolality 296 mOsm/kg (285-295) H 02/04/23 04:43 Lactic Acid 2.4 mmol/L (0.5-2.2) H 01/25/23 17:25 Lactic Acid (Sepsis) 1.8 mmol/L (0.5-2.2) 01/25/23 19:50 Lactate 1.7 mmol/L (0.5-2.2) 01/29/23 16:35 Calcium 8.7 mg/dL (8.5-10.5) 02/04/23 04:43 Magnesium 2.0 mg/dL (1.7-2.3) 02/04/23 04:43 Iron 35 ug/dL (37-145) L 01/29/23 16:35 Ferritin 197 ng/mL (15-150) H 01/29/23 16:35 Total Bilirubin 0.9 mg/dL (0.15-1.2) 02/04/23 04:43 Direct Bilirubin 0.30 mg/dL (0.00-0.30) 01/30/23 11:54 AST 80 U/L (0-32) H 02/04/23 04:43 ALT 36 U/L (0-33) H 02/04/23 04:43 Alkaline Phosphatase 69 U/L (35-105) 02/04/23 04:43 Troponin T Baseline 41 ng/L (0-10) H 01/25/23 16:27 Troponin T 120 Minute 36.78 ng/L (0-10) H 01/25/23 18:31 Delta Troponin T -4.22 ABS# (0-10) L 01/25/23 18:31 Troponin T Hi Sens 6Hr 37.17 ng/L (0-10) H 01/25/23 22:35 Troponin T Hi Sens 6Hr Delta -3.83 ng/L (0-12) L 01/25/23 22:35 NT-Pro-B Natriuret Pep 76262 pg/mL (0-125) H 02/04/23 04:43 Total Protein 5.8 g/dL (6.6-8.7) L 02/04/23 04:43 Albumin 2.8 g/dL (3.5-5.2) L 02/04/23 04:43 Globulin 3.0 g/dL (1.3-4.6) 02/04/23 04:43 Vitamin B12 189 pg/mL (232-1245) L 01/28/23 02:28 Folate 7.2 ng/mL (4.8-37.3) 01/28/23 02:28 TSH 0.88 uIU/mL (0.27-4.20) 01/28/23 02:28 Random Cortisol 9.28 ug/dL (2.47-19.5) 01/28/23 02:28 Urine Color Yellow (Yellow) 01/25/23 17:44 Urine Appearance Clear (CLEAR) 01/25/23 17:44 Urine pH 5 (5-7) 01/25/23 17:44 Ur Specific [place] 1.005 (1.005-1.030) 01/25/23 17:44 Urine Protein Neg (Negative) 01/25/23 17:44 Urine Glucose (UA) Norm (Normal) 01/25/23 17:44 Urine Ketones Negative (Negative) 01/25/23 17:44 Urine Blood Neg (Negative) 01/25/23 17:44 Urine Nitrate Positive (Negative) H 01/25/23 17:44 Urine Bilirubin Neg (Negative) 01/25/23 17:44 Urine Urobilinogen Norm mg/dL (Negative) 01/25/23 17:44 Ur Leukocyte Esterase Negative (Negative) 01/25/23 17:44 Urine RBC 0-4 /hpf (0-2) H 01/25/23 17:44 Urine WBC 0-4 /hpf (0-5) H 08 17:44 Ur Squamous Epith Cells 0-4 /hpf (0-5) H 01/25/23 17:44 Amorphous Sediment Not Reportable 01/25/23 17:44 Urine Bacteria 2+ /hpf (NONE) H 01/25/23 17:44 Hyaline Casts 0-4 /lpf H 01/25/23 17:44 Nasal Influ A H1 2009 PCR Not detected (NOT DETECT) 02/03/23 09:15 Adenovirus (PCR) Not detected (NOT DETECT) 02/03/23 09:15 C. pneumoniae DNA (PCR) Not detected (NOT DETECT) 02/03/23 09:15 Coronavirus 229E (PCR) Not detected (NOT DETECT) 02/03/23 09:15 Human Metapneumovir PCR Not detected (NOT DETECT) 02/03/23 09:15 Influenza A (H1) PCR Not detected (NOT DETECT) 02/03/23 09:15 Influenza A (H3) PCR Not detected (NOT DETECT) 02/03/23 09:15 Influenza Type A (PCR) Not detected (NOT DETECT) 02/03/23 09:15 Influenza Type B (PCR) Not detected (NOT DETECT) 02/03/23 09:15 M. pneumoniae (PCR) Not detected (NOT DETECT) 02/03/23 09:15 Parainfluenza 1 (PCR) Not detected (NOT DETECT) 02/03/23 09:15 Parainfluenza 2 (PCR) Not detected (NOT DETECT) 02/03/23 09:15 Parainfluenza 3 (PCR) Not detected (NOT DETECT) 02/03/23 09:15 Parainfluenza 4 (PCR) Not detected (NOT DETECT) 02/03/23 09:15 RSV Type A (PCR) Not detected (NOT DETECT) 02/03/23 09:15 RSV Type B (PCR) Not detected (NOT DETECT) 02/03/23 09:15 Entero/Rhino (PCR) Not detected (NOT DETECT) 02/03/23 09:15 SARS-CoV-2 (PCR) Not detected (NOT DETECT) 02/03/23 09:15 Vitals Last Vital Signs Temp 97.8 F 02/04/23 07:30 Pulse 51 L 02/04/23 08:00 Resp 18 02/04/23 08:00 BP 90/57 02/04/23 07:30 Pulse Ox 100 02/04/23 08:00 O2 Del Method Nasal Cannula 02/04/23 08:00 O2 Flow Rate 4 02/04/23 08:00 Discharge Plan Discharge Patient Disposition: Xfer SNF Condition: Stable Prescriptions: New hydrocodone-acetaminophen 5-325 mg tablet 1 tab PO Q6H PRN (Reason: pain) 7 Days Qty: 28 0RF midodrine 5 mg Tablet 5 mg PO TID 30 Days Qty: 90 0RF potassium chloride [Klor-Con M10] 10 mEq tablet,ER particles/crystals 10 meq PO Q48H 30 Days Qty: 15 0RF Rx Instructions: with lasix cyanocobalamin (vitamin B-12) [Vitamin B-12] 1,000 mcg Tablet 1,000 mcg PO DAILY 30 Days Qty: 30 0RF Continued albuterol sulfate 90 mcg/actuation HFA aerosol inhaler 2 puff inhalation Q6H PRN (Reason: Shortness Of Breath) gabapentin 300 mg capsule See Rx Instructions .ROUTE .COMPLEX Rx Instructions: 900mg po qam and 600mg po qpm amitriptyline 50 mg tablet 50 mg PO BEDTIME Qty: 90 2RF furosemide 40 mg tablet 40 mg PO Q48H Qty: 90 1RF mirtazapine 30 mg tablet 30 mg PO BEDTIME Qty: 90 1RF rosuvastatin 10 mg tablet 10 mg PO BEDTIME Qty: 90 2RF (DME) Diabetic Shoes with 3 Inserts See Rx Instructions .Route .MEDSUPPLY Qty: 1 0RF Rx Instructions: As directed HOME tramadol 50 mg tablet 50 mg PO BID PRN (Reason: Pain) Qty: 60 2RF Eliquis 5 mg tablet 5 mg PO BID Qty: 180 3RF fluticasone propionate 50 mcg/actuation spray,suspension See Rx Instructions .ROUTE .COMPLEX Qty: 16 0RF Dose Instruction: SHAKE LIQUID AND USE 2 SPRAYS IN EACH NOSTRIL DAILY NEEDED FOR ALLERGY SYMPTOMS Rx Instructions: SHAKE LIQUID AND USE 2 SPRAYS IN EACH NOSTRIL DAILY NEEDED FOR ALLERGY SYMPTOMS ascorbic acid (vitamin C) [Vitamin C] 500 mg Tablet 500 mg PO QAM Rx Instructions: TAKE WITH METHENAMINE calcitriol 0.25 mcg capsule 0.25 mcg PO .ON MON,WED,FRI tizanidine 4 mg tablet 4 mg PO Q6H PRN (Reason: Muscle Spasm) clopidogrel 75 mg tablet 75 mg PO QAM lidocaine-prilocaine 2.5-2.5 % cream See Rx Instructions .ROUTE .COMPLEX Rx Instructions: APPLY 2-3 GRAMS TOPICALLY TO AFFECTED AREA 3-4 TIMES PER DAY NEEDED methenamine hippurate 1 gram tablet 1 g PO QAM lansoprazole 30 mg capsule,delayed release(DR/EC) 30 mg PO QAM Nitrostat 0.4 mg Tablet, Sublingual 0.4 mg SUBLINGUAL Q5M PRN (Reason: Chest Pain) Rx Instructions: do not exceed 3 doses per episode levothyroxine 112 mcg tablet 112 mcg PO QAM omega-3 acid ethyl esters 1 gram capsule 3 cap PO DAILY albuterol sulfate 2.5 mg /3 mL (0.083 %) Solution For Nebulization 2.5 mg INHALATION Q6H PRN (Reason: Shortness Of Breath) Discontinued metoprolol succinate 25 mg tablet extended release 24 hr 25 mg PO BEDTIME Qty: 90 3RF enalapril maleate 2.5 mg tablet 2.5 mg PO QAM Discharge Orders: Discharge Order (Routine); Ordered 02/04/23 Ordered By: Danielito Reece Referrals: [facility] [Outside] Doug Allen DO [Primary Care Provider] - Dao Hallman DO [Physician] - 02/12/23 9:00 am (2 wks) Siobhan Olivas MD [Physician] - 4-7 days (adrenal insufficiency) Discharge Diet: Advance as tolerated Discharge Activity: Limit activity as instructed, Use walker/crutches as instructed, Wheelchair as instructed and As per PT/OT instructions Activity Restrictions/Additional Instructions: Ankle fracture ORIF postop Orthopedic discharge instructions: Keep dressing clean dry and intact Leave splint on and in place until follow-up visit Do not get splint wet, if it does contact the office for a office visit to have it changed No baths or soaks Nonweightbearing to operative extremity Utilize crutches/walker/knee scooter as tolerated to continue with ambulation while maintaining restrictions Encourage knee range of motion as tolerated Ice and elevate as needed for pain and swelling Take pain medication as prescribed Resume home anticoagulation medication for blood clot prevention Supplement with Citracal/vitamin D for bone health and healing Take [id number] Colace as needed for constipation postoperatively Follow-up with Dr. Hallman in the office in 1 week. Contact the office for any questions or concerns(i.e. fevers, increased drainage or redness around the incision site etc.) -If you have any lightheadedness or dizziness go to the emergency room -Please follow-up with Dr. Gannon -Recheck kidney function, creatinine, blood pressures to Dr. Gannon's office in the next few days -Please see Dr. Olivas in 1 week Discharge Attestations Time Spent in Discharge Care*: greater than 30 min Quality Metrics Clinical Quality Measures [ No reported AMI, CVA or VTE this stay] Coding Level of Care Code 99546 Total time (in minutes) for Discharge: 45 Diagnoses Syncope R55 Hypotension I95.9 Acute cystitis N30.00 Ankle fracture, right S82.891A Hyperlipidemia E78.5 Hyperlipidemia type: unspecified Acquired hypothyroidism E03.9 Type 2 diabetes mellitus with diabetic nephropathy E11.21 B12 deficiency E53.8 Anemia D64.9 GI bleed K92.2 CHF exacerbation I50.9
[2023-02-04 12:18] VITALS: PULSE 51; RESP 18; O2SAT 100
== END 2023-02-04 12:15 | disposition home health service (06) | DRG 492 ==
LOC: ER 17:22 → MEDSURG 20:10 → ICU 21:12 → MEDSURG 01-28 23:49
PROVIDERS: Student in an Organized Health Care Education/Training Program; Surgery; Admitting Provider Internal Medicine; Emergency Provider Emergency Medicine; PCP Family Medicine; Visit Provider Family Medicine
PROC: 0QSJ04Z Reposition Right Fibula with Internal Fixation Device, Open Approach (ICD-10-PCS; principal; 2023-01-26 09:45)
PROC: 0DJ08ZZ Inspection of Upper Intestinal Tract, Via Natural or Artificial Opening Endoscopic (ICD-10-PCS; CPT 43235; principal; 2023-01-31 11:45)
DX: S82.851A Displaced trimalleolar fracture of right lower leg, initial encounter for closed fracture (principal); I50.33 Acute on chronic diastolic (congestive) heart failure; N30.00 Acute cystitis without hematuria; I13.0 Hypertensive heart and chronic kidney disease with heart failure and stage 1 through stage 4 chronic kidney disease, or unspecified chronic kidney disease; E27.40 Unspecified adrenocortical insufficiency; W18.30XA Fall on same level, unspecified, initial encounter; I95.9 Hypotension, unspecified; E78.5 Hyperlipidemia, unspecified; E21.3 Hyperparathyroidism, unspecified; E11.40 Type 2 diabetes mellitus with diabetic neuropathy, unspecified; E53.8 Deficiency of other specified B group vitamins; D50.9 Iron deficiency anemia, unspecified; N18.9 Chronic kidney disease, unspecified; E11.22 Type 2 diabetes mellitus with diabetic chronic kidney disease; J44.9 Chronic obstructive pulmonary disease, unspecified; E66.9 Obesity, unspecified; Z68.35 Body mass index [BMI] 35.0-35.9, adult; I25.10 Atherosclerotic heart disease of native coronary artery without angina pectoris; Z95.5 Presence of coronary angioplasty implant and graft; B96.20 Unspecified Escherichia coli [E. coli] as the cause of diseases classified elsewhere; Z98.84 Bariatric surgery status; Z79.02 Long term (current) use of antithrombotics/antiplatelets; Z79.01 Long term (current) use of anticoagulants; Z79.891 Long term (current) use of opiate analgesic; Z79.51 Long term (current) use of inhaled steroids; K21.9 Gastro-esophageal reflux disease without esophagitis; I25.2 Old myocardial infarction; G47.33 Obstructive sleep apnea (adult) (pediatric); Z87.440 Personal history of urinary (tract) infections; F17.210 Nicotine dependence, cigarettes, uncomplicated; R55 Syncope and collapse; T38.0X5A Adverse effect of glucocorticoids and synthetic analogues, initial encounter; T50.0X5A Adverse effect of mineralocorticoids and their antagonists, initial encounter; T40.425A Adverse effect of tramadol, initial encounter; T42.8X5A Adverse effect of antiparkinsonism drugs and other central muscle-tone depressants, initial encounter
CPT/HCPCS: 36415; 36416; 43235; 70450; 71045; 72125; 73610; 73700; 74176; 76000; 80048; 80053; 80076; 81001; 82274; 82533; 82607; 82728; 82746; 82962; 83036; 83540; 83605; 83735; 83880; 84443; 84484; 85014; 85018; 85025; 85610; 87040; 87077; 87086; 87186; 87486; 87581; 87633; 93005; 93306; 94640; 94664; 96365; 96375; 96376; 97110; 97161; 97165; 97530; 97535; 99285; C1713; C9113; G0378; J0690; J0696; J1100; J1170; J1720; J1940; J2270; J2371; J2405; J2704; J2765; J2795; J3010; J3370; J3490; J7030; J7040; J7120; P9046; Q3014

== ENCOUNTER → 2023-02-12 07:34 | Outpatient (BNVA) | payer MEDICARE, MEDICAID, SELFPAY | PROVIDERS: PCP Family Medicine; Visit Provider Internal Medicine | DX: E03.9 Hypothyroidism, unspecified (principal); E27.40 Unspecified adrenocortical insufficiency; E16.2 Hypoglycemia, unspecified; Z79.890 Hormone replacement therapy; S82.891D Other fracture of right lower leg, subsequent encounter for closed fracture with routine healing; I21.9 Acute myocardial infarction, unspecified; X58.XXXD Exposure to other specified factors, subsequent encounter; I10 Essential (primary) hypertension; N18.9 Chronic kidney disease, unspecified; D50.0 Iron deficiency anemia secondary to blood loss (chronic) | CPT/HCPCS: 73610; 80053; 85025; 99024; 99205 ==

== ENCOUNTER 2023-02-14 14:45 | Emergency (ER) | payer MEDICARE, MEDICAID, SELFPAY ==
[2023-02-14] VITALS (45 sets, daily range): BP systolic 87–121; BP diastolic 58–77; PULSE 85–107; RESP 8–26; O2SAT 90–100; BMI 32.9
--- NOTE | 2023-02-14 14:51 | XRR_ITS ---
PROCEDURE INFORMATION: Exam: XR Chest Exam date and time: 02/14/2023 3:01 PM Age: 67 years old Clinical indication: Pain; Angina pectoris; Additional info: Chest pain.No history of trauma or recent surgery is provided. TECHNIQUE: Imaging protocol: Radiologic exam of the chest. 1image(s) are provided. Views: 1 view. COMPARISON: 1. CR (CHEST, ) 02/02/2023 11:15 AM 2. CR (CHEST, ) 01/30/2023 6:[address] lung screening [id number] 03/02/2022 8:49 AM FINDINGS: Tubes, catheters and devices: There appear to be some dense mitral apparatus calcifications. Lungs: There is some subsegmental atelectasis versus post inflammatory reticulonodular scarring demonstrated.No lobar consolidation is appreciated. There is improved lung volume and aeration. Pleural spaces: No pneumothorax or significant pleural effusion is appreciated. Heart/Mediastinum: The cardiomediastinal silhouette is upper normal in size.This can be seen with central averaging as well as alireza enlargement.No cardiac decompensation is appreciated. There appear to be some dense coronary calcifications and could also be seen with some interventional type related change. Diaphragm: There is slight asymmetric right hemidiaphragm elevation. Bones/joints: There are chronic appearing degenerative changes of the shoulders demonstrated suggestive of chronic rotator cuff disease with slight subacromial narrowing. Soft tissues: No radiopaque foreign body or subcutaneous emphysema is appreciated. Other findings: No other significant interval changes are appreciated. XR/XR chest 1V portable [id number] IMPRESSION: No lobar consolidation is appreciated.No interval acute cardiopulmonary changes are appreciated.
--- NOTE | 2023-02-14 14:51 | ECG_ITS ---
[facility] Test Date: 2023-02-14 Pat Name: Peri Cid Department: Room: Gender: Female Pitch Filler: : 1955 Requested By: Howie Gallardo Order Number: [id number] Arturo MD: Gaston Yuan M.D. Measurements Intervals Man Rate: 98 P: 44 NE: 139 QRS: -15 QRSD: 128 T: 174 QT: 397 QTc: 508 Interpretive Statements SINUS RHYTHM PROBABLE LATERAL MYOCARDIAL INFARCTION , OF INDETERMINATE AGE [35 ms Q WAVE IN I/aVL/V5/V6] MODERATE T-WAVE ABNORMALITY, CONSIDER ANTERIOR ISCHEMIA [-0.1+ mV T-WAVE IN V3/V4] Compared to ECG 01/25/2023 22:43:41 T-wave abnormality now present Possible ischemia now present Left-axis deviation no longer present Myocardial infarct finding still present Electronically Signed On 02-14-2023 15:15:18 CDT by Gaston Yuan M.D. [id number]
--- NOTE | 2023-02-14 15:01 | ED_ITS ---
Documented by User: Howie Hernández DO 02/15/23 07:40 HPI - Chest Pain General: Chief Complaint: Chest Pain Stated Complaint: CHEST PAIN Time Seen by Provider: 02/14/23 14:48 Source: patient Mode of arrival: ambulatory History of Present Illness: 67-year-old female presents emergency room with complaint of chest pain began about 2 hours ago. She has known history of coronary disease has had stents placed in the past (she states she has 11 stents). She will stress test done a year ago that showed her old areas of infarct with no adela-infarct ischemia and she also had a visit with Dr. Jane Baltazar that he did not anticipate her needing to have bypass she states she is convinced that if she has 1 more episode she will have to bypass because a number of stents that she has. She reports substernal chest pain radiates from her left to the right side of her chest she has no diaphoresis some mild shortness of breath associated with it she normally wears oxygen at 4 L/min at night due to sleep apnea. She is on 4 L/min on arrival here which was titrated down to 2 and she wally [place] sats in upper 90s. She has chronic hypotension and is mildly hypotensive on arrival here she is not currently having any chest pain there is no acute EKG changes. She denies fever sweats or chills or productive cough. MD complaint: chest pain Pertinent past history: coronary artery disease Onset (ago): hour(s) (2) Onset: during rest Pain location: left chest Severity: moderate Quality: aching and heaviness Relieving factors: nothing Exacerbating factors: nothing Associated symptoms: Deny abdominal pain, diaphoresis, dyspnea, fever(s), leg edema, nausea, palpitations, sense of impending doom, syncope or vomiting Treatment prior to arrival: aspirin and nitroglycerin Review of Systems Const: Denies: fever(s) or diaphoresis Card: Reports: chest pain; Denies: palpitations or syncope Resp: Denies: dyspnea GI: Denies: abdominal pain, nausea or vomiting : Denies: flank pain, difficulty voiding, dysuria, urinary frequency or urinary urgency Skin/Breast: Denies: rash or pruritus [facility] ED PFSH: Medical History ASHD (arteriosclerotic heart disease) CHF (congestive heart failure) Chronic kidney disease Chronic rhinosinusitis CKD (chronic kidney disease) COPD (chronic obstructive pulmonary disease) Coronary artery disease 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, managed as type 2 Diabetic neuropathy Diabetic peripheral neuropathy associated with type 2 diabetes mellitus Fall with injury Family history of colon cancer requiring screening colonoscopy GERD (gastroesophageal reflux disease) Head injury due to trauma HTN (hypertension) Hyperlipidemia Hypotension Insomnia Myocardial infarction Neck injury Nonscarring hair loss Obesity EDNA (obstructive sleep apnea) Pain associated with defecation Recurrent UTI Renal calculus, left treated with ESWL with resolution S/P extracorporeal shock wave therapy Secondary hyperparathyroidism of renal origin Tobacco abuse Urolithiasis Surgical History H/O bariatric surgery S/P angioplasty with stent Family History Mother , at age 86 CAD (coronary artery disease) Diabetes Myocardial infarction Hypertension Father , AGE 72 Diabetes CAD (coronary artery disease) Cancer LUNG Brother Diabetes CAD (coronary artery disease) Hypertension Sister Diabetes Social History Smoking and tobacco status: current every day smoker cigarettes Alcohol intake: never Adopted: No Caregiver/support person: No Marital status: Legally Current occupational status: retired and disabled Current gender identity: Female Female Reproductive History: Spontaneous abortions: No Physical Exam Const: GENERAL APPEARANCE: cooperative and comfortable ORIENTATION/CONSCIOUSNESS: Yes awake, Yes oriented to person, Yes oriented to place and Yes oriented to time HENMT: COMMON NORMALS: normocephalic, atraumatic and hearing grossly normal bilaterally HEAD & SCALP: normocephalic and atraumatic Resp: COMMON NORMALS: normal respiratory effort, No retractions, No use of accessory muscles and clear to auscultation bilaterally AUSCULTATION: clear to auscultation bilaterally Cardio: COMMON NORMALS: regular rate, regular rhythm and No murmurs present (Cardio) RATE: regular rate RHYTHM: regular rhythm GI: COMMON NORMALS: Soft to palpation and No hepatosplenomegaly present AUSCULTATION: Yes normoactive bowel sounds PALPATION: Yes Soft to palpation, No Tenderness to palpation present (GI), No Guarding due to palpation present (GI) and Yes No hepatosplenomegaly present Extremity: COMMON NORMALS: normal to inspection, capillary refill normal, no clubbing, cyanosis or edema, no calf tenderness and no pedal edema Neuro: SENSORIUM/ORIENTATION: Yes oriented to person, Yes oriented to place and Yes oriented to time Skin: COMMON NORMALS: no rashes or lesions noted GENERAL SKIN EXAM: no rashes or lesions noted Course Vital Signs: Vital signs: Vital Signs Pulse Rate 96 02/14/23 19:13 Respiratory Rate 20 H 02/14/23 19:13 Blood Pressure 87/58 02/14/23 19:13 Pulse Oximetry 95 02/14/23 19:13 Oxygen Delivery Me thod Nasal Cannula 02/14/23 18:25 Oxygen Flow Rate 3 02/14/23 18:25 MDM - Chest Pain Medical Decision Making No acute ST elevation on initial EKG. Care signed out to Dr. Fong at change of shift. See final notes for diagnosis and disposition. Patient presents here with chest pain troponins here are negative she is well- appearing her pains improved she is stable for discharge she is follow-up with PCP and return if worsening she understands agrees to plan. Lab Data 02/14/23 16:00 02/14/23 16:00 Radiology Impressions Chest X-Ray 02/14/23 14:51 IMPRESSION: No lobar consolidation is appreciated.No interval acute cardiopulmonary changes are appreciated. Laboratory Results WBC 8.34 10^3/uL (3.29-11.43) 02/14/23 16:00 RBC 3.05 10^6/uL (3.85-5.65) L 02/14/23 16:00 Hgb 10.30 g/dL (11.27-16.99) L 02/14/23 16:00 Hct 33.8 % (36-47) L 02/14/23 16:00 MCV 110.8 fl (85-98) H 02/14/23 16:00 MCH 33.8 pg (27-33) H 02/14/23 16:00 MCHC 30.5 g/dL (30-55) 02/14/23 16:00 RDW 18.1 % (12.1-15.1) H 02/14/23 16:00 Plt Count 286 10^3/cmm (157-399) 02/14/23 16:00 MPV 11.1 fL (7.4-10.4) H 02/14/23 16:00 Neut % (Auto) 58.3 % 02/14/23 16:00 Lymph % (Auto) 31.5 % 02/14/23 16:00 [place] % (Auto) 8.0 % 02/14/23 16:00 Eos % (Auto) 1.2 % 02/14/23 16:00 Baso % (Auto) 0.6 % 02/14/23 16:00 Neut # (Auto) 4.86 10^3/uL (1.8-7.7) 02/14/23 16:00 Lymph # (Auto) 2.6 10^3/uL (0.8-4.8) 02/14/23 16:00 [place] # (Auto) 0.7 10^3/uL (0.2-0.9) 02/14/23 16:00 Eos # (Auto) 0.1 10^3/uL (0.0-0.8) 02/14/23 16:00 Baso # (Auto) 0.1 10^3/uL (0.0-0.1) 02/14/23 16:00 Nucleated RBC % (auto) 0 % 02/14/23 16:00 Nucleated RBCs # 0.0 /100WBC 02/14/23 16:00 Sodium 141 mmol/L (136-145) 02/14/23 16:00 Potassium 3.3 mmol/L (3.5-5.1) L 02/14/23 16:00 Chloride 103 mmol/L (98-107) 02/14/23 16:00 Carbon Dioxide 27 mmol/L (22-29) 02/14/23 16:00 Anion Gap 14.3 (5-19) 02/14/23 16:00 BUN 13 mg/dL (8-23) 02/14/23 16:00 Creatinine 1.2 mg/dL (0.5-0.9) H 02/14/23 16:00 GFR Calculation 44.8 mL/min (90-130) L 02/14/23 16:00 Glucose 73 mg/dL (65-115) 02/14/23 16:00 Calculated Osmolality 291 mOsm/kg (285-295) 02/14/23 16:00 Calcium 8.2 mg/dL (8.5-10.5) L 02/14/23 16:00 Total Bilirubin 0.7 mg/dL (0.15-1.2) 02/14/23 16:00 AST 53 U/L (0-32) H 02/14/23 16:00 ALT 26 U/L (0-33) 02/14/23 16:00 Alkaline Phosphatase 118 U/L (35-105) H 02/14/23 16:00 Troponin T Baseline 47 ng/L (0-10) H 02/14/23 16:00 Troponin T 120 Minute 50.38 ng/L (0-10) H 02/14/23 18:20 Delta Troponin T 3.38 ABS# (0-10) 02/14/23 18:20 Total Protein 5.9 g/dL (6.6-8.7) L 02/14/23 16:00 Albumin 3.1 g/dL (3.5-5.2) L 02/14/23 16:00 Globulin 2.8 g/dL (1.3-4.6) 02/14/23 16:00 Discharge Plan Discharge Patient Disposition: Home Clinical Impression: Chest pain Condition: Stable Prescriptions: No Action albuterol sulfate 90 mcg/actuation HFA aerosol inhaler 2 puff inhalation Q6H PRN (Reason: Shortness Of Breath) gabapentin 300 mg capsule See Rx Instructions .ROUTE .COMPLEX Rx Instructions: 900mg po qam and 600mg po qpm (DME) bedside commode See Rx Instructions .Route .MEDSUPPLY Qty: 1 0RF Rx Instructions: Please issue bedside commode. (DME) Folding wheelchair See Rx Instructions .Route .MEDSUPPLY Qty: 1 0RF Rx Instructions: Please issue folding wheelchair. (DME) humidifiers Misc See Rx Instructions .Route Qty: 1 0RF Rx Instructions: Humidifier for oxygen concentrator. amitriptyline 50 mg tablet 50 mg PO BEDTIME Qty: 90 2RF furosemide 40 mg tablet 40 mg PO Q48H Qty: 90 1RF mirtazapine 30 mg tablet 30 mg PO BEDTIME Qty: 90 1RF rosuvastatin 10 mg tablet 10 mg PO BEDTIME Qty: 90 2RF (DME) Diabetic Shoes with 3 Inserts See Rx Instructions .Route .MEDSUPPLY Qty: 1 0RF Rx Instructions: As directed HOME tramadol 50 mg tablet 50 mg PO BID PRN (Reason: Pain) Qty: 60 2RF Eliquis 5 mg tablet 5 mg PO BID Qty: 180 3RF fluticasone propionate 50 mcg/actuation spray,suspension See Rx Instructions .ROUTE .COMPLEX Qty: 16 0RF Dose Instruction: SHAKE LIQUID AND USE 2 SPRAYS IN EACH NOSTRIL DAILY NEEDED FOR ALLERGY SYMPTOMS Rx Instructions: SHAKE LIQUID AND USE 2 SPRAYS IN EACH NOSTRIL DAILY NEEDED FOR ALLERGY SYMPTOMS ascorbic acid (vitamin C) [Vitamin C] 500 mg Tablet 500 mg PO QAM Rx Instructions: TAKE WITH METHENAMINE calcitriol 0.25 mcg capsule 0.25 mcg PO .ON MON,WED,FRI tizanidine 4 mg tablet 4 mg PO Q6H PRN (Reason: Muscle Spasm) clopidogrel 75 mg tablet 75 mg PO QAM lidocaine-prilocaine 2.5-2.5 % cream See Rx Instructions .ROUTE .COMPLEX Rx Instructions: APPLY 2-3 GRAMS TOPICALLY TO AFFECTED AREA 3-4 TIMES PER DAY NEEDED methenamine hippurate 1 gram tablet 1 g PO QAM lansoprazole 30 mg capsule,delayed release(DR/EC) 30 mg PO QAM nitroglycerin [Nitrostat] 0.4 mg Tablet, Sublingual 0.4 mg SUBLINGUAL Q5M PRN (Reason: Chest Pain) Rx Instructions: do not exceed 3 doses per episode levothyroxine 112 mcg tablet 112 mcg PO QAM omega-3 acid ethyl esters 1 gram capsule 3 cap PO DAILY midodrine 5 mg Tablet 5 mg PO TID 30 Days Qty: 90 0RF potassium chloride [Klor-Con M10] 10 mEq tablet,ER particles/crystals 10 meq PO Q48H 30 Days Qty: 15 0RF Rx Instructions: with lasix albuterol sulfate 2.5 mg /3 mL (0.083 %) Solution For Nebulization 2.5 mg INHALATION Q6H PRN (Reason: Shortness Of Breath) Discharge Orders: Discharge ED (Routine); Ordered 02/14/23 Ordered By: Ellen Fong Referrals: Doug Allen DO [Primary Care Provider] - 1-3 days Discharge Diet: Advance as tolerated Discharge Activity: Resume usual activity Patient Instructions: Chest Pain (ED) Coding Level of Care Code ED Director Music for Chg Fwd Documented by User: Ellen Fong MD 02/14/23 19:01 HPI - Chest Pain General: Chief Complaint: Chest Pain Stated Complaint: CHEST PAIN Time Seen by Provider: 02/14/23 14:48 PFSH ED PFSH: Medical History ASHD (arteriosclerotic heart disease) CHF (congestive heart failure) Chronic kidney disease Chronic rhinosinusitis CKD (chronic kidney disease) COPD (chronic obstructive pulmonary disease) Coronary artery disease 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, managed as type 2 Diabetic neuropathy Diabetic peripheral neuropathy associated with type 2 diabetes mellitus Fall with injury Family history of colon cancer requiring screening colonoscopy GERD (gastroesophageal reflux disease) Head injury due to trauma HTN (hypertension) Hyperlipidemia Hypotension Insomnia Myocardial infarction Neck injury Nonscarring hair loss Obesity EDNA (obstructive sleep apnea) Pain associated with defecation Recurrent UTI Renal calculus, left treated with ESWL with resolution S/P extracorporeal shock wave therapy Secondary hyperparathyroidism of renal origin Tobacco abuse Urolithiasis Surgical History H/O bariatric surgery S/P angioplasty with stent Family History Mother , at age 86 CAD (coronary artery disease) Diabetes Myocardial infarction Hypertension Father , AGE 72 Diabetes CAD (coronary artery disease) Cancer LUNG Brother Diabetes CAD (coronary artery disease) Hypertension Sister Diabetes Social History Smoking and tobacco status: current every day smoker cigarettes Alcohol intake: never Adopted: No Caregiver/support person: No Marital status: Legally Current occupational status: retired and disabled Current gender identity: Female Course Vital Signs: Vital signs: Vital Signs Pulse Rate 96 02/14/23 19:13 Respiratory Rate 20 H 02/14/23 19:13 Blood Pressure 87/58 02/14/23 19:13 Pulse Oximetry 95 02/14/23 19:13 Oxygen Delivery Me thod Nasal Cannula 02/14/23 18:25 Oxygen Flow Rate 3 02/14/23 18:25 MDM - Chest Pain Medical Decision Making Patient presents here with chest pain troponins here are negative she is well-appearing her pains improved she is stable for discharge she is follow-up with PCP and return if worsening she understands agrees to plan. Medical Records I reviewed the patient's medical records. Lab Data I reviewed the patient's lab results. 02/14/23 16:00 02/14/23 16:00 Radiology Impressions Chest X-Ray 02/14/23 14:51 IMPRESSION: No lobar consolidation is appreciated.No interval acute cardiopulmonary changes are appreciated. Laboratory Results WBC 8.34 10^3/uL (3.29-11.43) 02/14/23 16:00 RBC 3.05 10^6/uL (3.85-5.65) L 02/14/23 16:00 Hgb 10.30 g/dL (11.27-16.99) L 02/14/23 16:00 Hct 33.8 % (36-47) L 02/14/23 16:00 MCV 110.8 fl (85-98) H 02/14/23 16:00 MCH 33.8 pg (27-33) H 02/14/23 16:00 MCHC 30.5 g/dL (30-55) 02/14/23 16:00 RDW 18.1 % (12.1-15.1) H 02/14/23 16:00 Plt Count 286 10^3/cmm (157-399) 02/14/23 16:00 MPV 11.1 fL (7.4-10.4) H 02/14/23 16:00 Neut % (Auto) 58.3 % 02/14/23 16:00 Lymph % (Auto) 31.5 % 02/14/23 16:00 [place] % (Auto) 8.0 % 02/14/23 16:00 Eos % (Auto) 1.2 % 02/14/23 16:00 Baso % (Auto) 0.6 % 02/14/23 16:00 Neut # (Auto) 4.86 10^3/uL (1.8-7.7) 02/14/23 16:00 Lymph # (Auto) 2.6 10^3/uL (0.8-4.8) 02/14/23 16:00 [place] # (Auto) 0.7 10^3/uL (0.2-0.9) 02/14/23 16:00 Eos # (Auto) 0.1 10^3/uL (0.0-0.8) 02/14/23 16:00 Baso # (Auto) 0.1 10^3/uL (0.0-0.1) 02/14/23 16:00 Nucleated RBC % (auto) 0 % 02/14/23 16:00 Nucleated RBCs # 0.0 /100WBC 02/14/23 16:00 Sodium 141 mmol/L (136-145) 02/14/23 16:00 Potassium 3.3 mmol/L (3.5-5.1) L 02/14/23 16:00 Chloride 103 mmol/L (98-107) 02/14/23 16:00 Carbon Dioxide 27 mmol/L (22-29) 02/14/23 16:00 Anion Gap 14.3 (5-19) 02/14/23 16:00 BUN 13 mg/dL (8-23) 02/14/23 16:00 Creatinine 1.2 mg/dL (0.5-0.9) H 02/14/23 16:00 GFR Calculation 44.8 mL/min (90-130) L 02/14/23 16:00 Glucose 73 mg/dL (65-115) 02/14/23 16:00 Calculated Osmolality 291 mOsm/kg (285-295) 02/14/23 16:00 Calcium 8.2 mg/dL (8.5-10.5) L 02/14/23 16:00 Total Bilirubin 0.7 mg/dL (0.15-1.2) 02/14/23 16:00 AST 53 U/L (0-32) H 02/14/23 16:00 ALT 26 U/L (0-33) 02/14/23 16:00 Alkaline Phosphatase 118 U/L (35-105) H 02/14/23 16:00 Troponin T Baseline 47 ng/L (0-10) H 02/14/23 16:00 Troponin T 120 Minute 50.38 ng/L (0-10) H 02/14/23 18:20 Delta Troponin T 3.38 ABS# (0-10) 02/14/23 18:20 Total Protein 5.9 g/dL (6.6-8.7) L 02/14/23 16:00 Albumin 3.1 g/dL (3.5-5.2) L 02/14/23 16:00 Globulin 2.8 g/dL (1.3-4.6) 02/14/23 16:00 Discharge Plan Discharge Patient Disposition: Home Clinical Impression: Chest pain Condition: Stable Prescriptions: No Action albuterol sulfate 90 mcg/actuation HFA aerosol inhaler 2 puff inhalation Q6H PRN (Reason: Shortness Of Breath) gabapentin 300 mg capsule See Rx Instructions .ROUTE .COMPLEX Rx Instructions: 900mg po qam and 600mg po qpm (DME) bedside commode See Rx Instructions .Route .MEDSUPPLY Qty: 1 0RF Rx Instructions: Please issue bedside commode. (DME) Folding wheelchair See Rx Instructions .Route .MEDSUPPLY Qty: 1 0RF Rx Instructions: Please issue folding wheelchair. (DME) humidifiers Misc See Rx Instructions .Route Qty: 1 0RF Rx Instructions: Humidifier for oxygen concentrator. amitriptyline 50 mg tablet 50 mg PO BEDTIME Qty: 90 2RF furosemide 40 mg tablet 40 mg PO Q48H Qty: 90 1RF mirtazapine 30 mg tablet 30 mg PO BEDTIME Qty: 90 1RF rosuvastatin 10 mg tablet 10 mg PO BEDTIME Qty: 90 2RF (DME) Diabetic Shoes with 3 Inserts See Rx Instructions .Route .MEDSUPPLY Qty: 1 0RF Rx Instructions: As directed HOME tramadol 50 mg tablet 50 mg PO BID PRN (Reason: Pain) Qty: 60 2RF Eliquis 5 mg tablet 5 mg PO BID Qty: 180 3RF fluticasone propionate 50 mcg/actuation spray,suspension See Rx Instructions .ROUTE .COMPLEX Qty: 16 0RF Dose Instruction: SHAKE LIQUID AND USE 2 SPRAYS IN EACH NOSTRIL DAILY NEEDED FOR ALLERGY SYMPTOMS Rx Instructions: SHAKE LIQUID AND USE 2 SPRAYS IN EACH NOSTRIL DAILY NEEDED FOR ALLERGY SYMPTOMS ascorbic acid (vitamin C) [Vitamin C] 500 mg Tablet 500 mg PO QAM Rx Instructions: TAKE WITH METHENAMINE calcitriol 0.25 mcg capsule 0.25 mcg PO .ON MON,SAT,FRI tizanidine 4 mg tablet 4 mg PO Q6H PRN (Reason: Muscle Spasm) clopidogrel 75 mg tablet 75 mg PO QAM lidocaine-prilocaine 2.5-2.5 % cream See Rx Instructions .ROUTE .COMPLEX Rx Instructions: APPLY 2-3 GRAMS TOPICALLY TO AFFECTED AREA 3-4 TIMES PER DAY NEEDED methenamine hippurate 1 gram tablet 1 g PO QAM lansoprazole 30 mg capsule,delayed release(DR/EC) 30 mg PO QAM nitroglycerin [Nitrostat] 0.4 mg Tablet, Sublingual 0.4 mg SUBLINGUAL Q5M PRN (Reason: Chest Pain) Rx Instructions: do not exceed 3 doses per episode levothyroxine 112 mcg tablet 112 mcg PO QAM omega-3 acid ethyl esters 1 gram capsule 3 cap PO DAILY midodrine 5 mg Tablet 5 mg PO TID 30 Days Qty: 90 0RF potassium chloride [Klor-Con M10] 10 mEq tablet,ER particles/crystals 10 meq PO Q48H 30 Days Qty: 15 0RF Rx Instructions: with lasix albuterol sulfate 2.5 mg /3 mL (0.083 %) Solution For Nebulization 2.5 mg INHALATION Q6H PRN (Reason: Shortness Of Breath) Discharge Orders: Discharge ED (Routine); Ordered 02/14/23 Ordered By: Ellen Fong Referrals: Doug Allen DO [Primary Care Provider] - 1-3 days Discharge Diet: Advance as tolerated Discharge Activity: Resume usual activity Patient Instructions: Chest Pain (ED) Coding Level of Care Code ED Director Music for 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
[2023-02-14 16:26] LABS: Basophils # 0.1 10^3/uL (0.0-0.1); Basophils % 0.6 %; Eosinophils # 0.1 10^3/uL (0.0-0.8); Eosinophils % 1.2 %; Hematocrit 33.8 % (36-47); Lymphocytes # 2.6 10^3/uL (0.8-4.8); Lymphocytes % 31.5 %; Mean Corpuscular HGB Conc 30.5 g/dL (30-55); Mean Corpuscular Hemoglobin 33.8 pg (27-33); Mean Corpuscular Volume 110.8 fl (85-98); Mean Platelet Volume 11.1 fL (7.4-10.4); Monocytes # 0.7 10^3/uL (0.2-0.9); Neutrophils # 4.86 10^3/uL (1.8-7.7); Neutrophils % 58.3 %; Nucleated Red Blood Cells % 0 %; Platelet Count 286 10^3/cmm (157-399); Red Blood Count 3.05 10^6/uL (3.85-5.65); Red Cell Distribution Width 18.1 % (12.1-15.1); White Blood Count 8.34 10^3/uL (3.29-11.43)
[2023-02-14 16:43] LABS: Troponin(5th) Baseline 47 ng/L (0-10)
[2023-02-14 16:45] LABS: Alanine Aminotransferase 26 U/L (0-33); Albumin Level 3.1 g/dL (3.5-5.2); Alkaline Phosphatase 118 U/L (35-105); Anion Gap 14.3 (5-19); Aspartate Amino Transferase 53 U/L (0-32); Blood Urea Nitrogen 13 mg/dL (8-23); Calcium 8.2 mg/dL (8.5-10.5); Carbon Dioxide 27 mmol/L (22-29); Chloride 103 mmol/L (98-107); Globulin 2.8 g/dL (1.3-4.6); Glomerular Filtration Rate 44.8 mL/min (90-130); Glucose 73 mg/dL (65-115); Osmolality Calculated 291 mOsm/kg (285-295); Potassium 3.3 mmol/L (3.5-5.1); Sodium 141 mmol/L (136-145); Total Bilirubin 0.7 mg/dL (0.15-1.2); Total Protein 5.9 g/dL (6.6-8.7)
[2023-02-14] MEDS: potassium chloride oral liq 20 mEq/15 mL UDC 40 MEQ PO (18:28)
--- NOTE | 2023-02-14 18:31 | ECG_ITS ---
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 Measurements Intervals [place] Rate: 92 P: 41 NH: 155 QRS: -16 QRSD: 109 T: 174 QT: 371 QTc: 461 Interpretive Statements SINUS RHYTHM WITH OCCASIONAL SUPRAVENTRICULAR PREMATURE COMPLEXES MODERATE T-WAVE ABNORMALITY, CONSIDER ANTEROLATERAL ISCHEMIA [-0.1+ mV T-WAVE IN V3-V6] INTERPRETATION BASED ON A DEFAULT AGE OF 40 YEARS Compared to ECG 02/14/2023 14:53:30 Myocardial infarct finding no longer present T-wave abnormality still present Possible ischemia still present Electronically Signed On 02-15-2023 18:18:28 CDT by Taylor Grande M.D. [id number] f
[2023-02-14 18:51] LABS: Troponin 5 2HR 50.38 ng/L (0-10)
[2023-02-14 18:54] LABS: Troponin 5 2HR Delta 3.38 ABS# (0-10)
== END 2023-02-14 19:14 | disposition home or self-care (01) ==
PROVIDERS: Family Medicine; Emergency Provider Emergency Medicine; PCP Family Medicine
DX: R07.9 Chest pain, unspecified (principal); Z79.02 Long term (current) use of antithrombotics/antiplatelets; Z79.01 Long term (current) use of anticoagulants; F17.210 Nicotine dependence, cigarettes, uncomplicated; E13.22 Other specified diabetes mellitus with diabetic chronic kidney disease; I13.0 Hypertensive heart and chronic kidney disease with heart failure and stage 1 through stage 4 chronic kidney disease, or unspecified chronic kidney disease; N18.9 Chronic kidney disease, unspecified; I50.9 Heart failure, unspecified; I25.10 Atherosclerotic heart disease of native coronary artery without angina pectoris; E78.5 Hyperlipidemia, unspecified; I25.2 Old myocardial infarction
CPT/HCPCS: 36415; 71045; 80053; 84484; 85025; 93005; 99285

== ENCOUNTER → 2023-02-18 08:49 | Outpatient (BNVA) | payer MEDICARE, MEDICAID, SELFPAY | PROVIDERS: PCP Family Medicine; Visit Provider Family Medicine | DX: N39.0 Urinary tract infection, site not specified (principal) | CPT/HCPCS: 81000 ==

== ENCOUNTER → 2023-02-26 08:06 | Outpatient (BNVA) | payer MEDICARE, MEDICAID, SELFPAY | PROVIDERS: PCP Family Medicine; Visit Provider Physician Assistant | DX: S82.891D Other fracture of right lower leg, subsequent encounter for closed fracture with routine healing; X58.XXXD Exposure to other specified factors, subsequent encounter | CPT/HCPCS: 73610; 99024 ==

== ENCOUNTER → 2023-03-01 10:52 | Outpatient (BNVA) | payer MEDICARE, MEDICAID, SELFPAY | PROVIDERS: PCP Family Medicine; Visit Provider Internal Medicine Cardiovascular Disease | DX: I25.10 Atherosclerotic heart disease of native coronary artery without angina pectoris (principal); E16.2 Hypoglycemia, unspecified; E27.40 Unspecified adrenocortical insufficiency; E03.9 Hypothyroidism, unspecified; Z99.81 Dependence on supplemental oxygen; D50.0 Iron deficiency anemia secondary to blood loss (chronic); J96.11 Chronic respiratory failure with hypoxia; Z74.09 Other reduced mobility; Z78.9 Other specified health status; S82.891D Other fracture of right lower leg, subsequent encounter for closed fracture with routine healing; F17.218 Nicotine dependence, cigarettes, with other nicotine-induced disorders; J44.1 Chronic obstructive pulmonary disease with (acute) exacerbation; E66.9 Obesity, unspecified; Z95.820 Peripheral vascular angioplasty status with implants and grafts; G47.33 Obstructive sleep apnea (adult) (pediatric); E78.5 Hyperlipidemia, unspecified; I25.2 Old myocardial infarction; I13.0 Hypertensive heart and chronic kidney disease with heart failure and stage 1 through stage 4 chronic kidney disease, or unspecified chronic kidney disease; E13.22 Other specified diabetes mellitus with diabetic chronic kidney disease; N18.9 Chronic kidney disease, unspecified; I50.9 Heart failure, unspecified; Z79.84 Long term (current) use of oral hypoglycemic drugs; Z68.32 Body mass index [BMI] 32.0-32.9, adult; X58.XXXD Exposure to other specified factors, subsequent encounter | CPT/HCPCS: 99214 ==

== ENCOUNTER → 2023-03-12 10:26 | Outpatient (BNVA) | payer MEDICARE, MEDICAID, SELFPAY | PROVIDERS: PCP Family Medicine; Visit Provider Physician Assistant | DX: S82.891D Other fracture of right lower leg, subsequent encounter for closed fracture with routine healing; X58.XXXD Exposure to other specified factors, subsequent encounter; Z46.89 Encounter for fitting and adjustment of other specified devices | CPT/HCPCS: 73610; 97760; 99024; 99213; L4361 ==

== ENCOUNTER 2023-03-12 15:00 | Outpatient (CLI) | payer MEDICARE, MEDICAID, SELFPAY | END 2023-03-12 15:01 | disposition home or self-care (01) | LOC: SPT 15:00 | PROVIDERS: PCP Family Medicine; Visit Provider Physician Assistant | DX: Z46.89 Encounter for fitting and adjustment of other specified devices (principal); S82.891D Other fracture of right lower leg, subsequent encounter for closed fracture with routine healing; X58.XXXD Exposure to other specified factors, subsequent encounter | CPT/HCPCS: 97760; 99024; 99213; L4361 ==

== ENCOUNTER → 2023-03-26 10:27 | Outpatient (BNVA) | payer MEDICARE, MEDICAID, SELFPAY | PROVIDERS: PCP Family Medicine; Visit Provider Physician Assistant | DX: S82.891D Other fracture of right lower leg, subsequent encounter for closed fracture with routine healing; X58.XXXD Exposure to other specified factors, subsequent encounter; Z98.890 Other specified postprocedural states; Z87.81 Personal history of (healed) traumatic fracture | CPT/HCPCS: 73610; 99024 ==

== ENCOUNTER → 2023-04-09 14:31 | Outpatient (BNVA) | payer MEDICARE, MEDICAID, SELFPAY | PROVIDERS: PCP Family Medicine; Visit Provider Physician Assistant | DX: Z98.890 Other specified postprocedural states (principal); Z87.81 Personal history of (healed) traumatic fracture; S82.891D Other fracture of right lower leg, subsequent encounter for closed fracture with routine healing; X58.XXXD Exposure to other specified factors, subsequent encounter; E27.40 Unspecified adrenocortical insufficiency; E03.9 Hypothyroidism, unspecified; E11.21 Type 2 diabetes mellitus with diabetic nephropathy; E83.42 Hypomagnesemia; E83.52 Hypercalcemia | CPT/HCPCS: 73610; 80053; 82306; 82533; 82607; 82746; 83735; 84100; 84439; 84443; 85025; 99213 ==

== ENCOUNTER 2023-04-24 11:44 | Outpatient (RCR) | payer MEDICARE, MEDICAID, SELFPAY | END 2023-05-23 23:59 | disposition home or self-care (01) | LOC: SPT 11:44 | PROVIDERS: PCP Family Medicine; Visit Provider Family Medicine | DX: R53.1 Weakness (principal); S82.891D Other fracture of right lower leg, subsequent encounter for closed fracture with routine healing; X58.XXXD Exposure to other specified factors, subsequent encounter | CPT/HCPCS: 97110; 97161 ==

== ENCOUNTER 2023-04-25 12:30 | Observation (INO) | payer MEDICARE, MEDICAID, SELFPAY ==
[2023-04-25 12:47] VITALS: BP 78/54; PULSE 106; RESP 18; TEMP 36.8; O2SAT 95; BMI 30.9
--- NOTE | 2023-04-25 13:45 | ECG_ITS ---
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 Measurements Intervals [place] Rate: 90 P: 43 CO: 139 QRS: -41 QRSD: 108 T: 32 QT: 390 QTc: 478 Interpretive Statements SINUS RHYTHM LEFT AXIS DEVIATION [QRS AXIS < -30] POSSIBLE ANTEROLATERAL MYOCARDIAL INFARCTION , PROBABLY OLD [30 ms Q WAVE IN I/aVL/V3-V6] Compared to ECG 02/14/2023 18:31:59 Left-axis deviation now present Myocardial infarct finding now present T-wave abnormality no longer present Possible ischemia no longer present Electronically Signed On 04-25-2023 14:58:04 CDT by Gaston Yuan M.D. [id number]
[2023-04-25 13:46] VITALS: BP 124/74; PULSE 100; O2SAT 96
--- NOTE | 2023-04-25 13:46 | XRR_ITS ---
PROCEDURE INFORMATION: Exam: XR Chest Exam date and time: 04/25/2023 2:09 PM Age: 67 years old Clinical indication: Other: Pitting edema of lft foot; Patient HX: 2nd toe RT foot is black; Additional info: Edema, pitting edema of lft foot TECHNIQUE: Imaging protocol: Radiologic exam of the chest. Views: 1 view. COMPARISON: CR XR chest 1V portable [id number] 02/14/2023 3:01 PM FINDINGS: Lungs: Lung volumes are low. There is no consolidation. Pleural spaces: There is no pleural effusion or pneumothorax. Heart/Mediastinum: There is mild enlargement of the cardiac silhouette. Diaphragm: There is mild asymmetric elevation of the right hemidiaphragm. Bones/joints: Bones are unremarkable. XR/XR chest 1V [id number] IMPRESSION: No acute findings.
[2023-04-25 14:16] LABS: Basophils % 0.4 %; Eosinophils % 0.4 %; Hematocrit 40.5 % (36-47); Lymphocytes # 1.7 10^3/uL (0.8-4.8); Lymphocytes % 24.4 %; Mean Corpuscular HGB Conc 32.1 g/dL (30-55); Mean Corpuscular Hemoglobin 31.7 pg (27-33); Mean Corpuscular Volume 98.8 fl (85-98); Mean Platelet Volume 12.2 fL (7.4-10.4); Monocytes # 0.5 10^3/uL (0.2-0.9); Monocytes % 7.4 %; Neutrophils # 4.62 10^3/uL (1.8-7.7); Neutrophils % 67.1 %; Nucleated Red Blood Cells % 0 %; Platelet Count 188 10^3/cmm (157-399); Red Cell Distribution Width 16.9 % (12.1-15.1); White Blood Count 6.89 10^3/uL (3.29-11.43)
--- NOTE | 2023-04-25 14:22 | ED_ITS ---
HPI - Extremity Problem General: Chief complaint: Extremity Problem,Nontraumatic Stated complaint: second toe right foot black Time Seen by Provider: 04/25/23 13:24 Source: patient Mode of arrival: ambulatory Limitations: no limitations History of Present Illness: Patient presents to the emergency department today for evaluation treatment of discoloration of her right second toe. Patient reports that 2 weeks ago she was trimming her toenails back and accidentally clipped too far back. Patient rep orts she is on 2 types of blood thinners and after cutting her toe, had approximately 6 days of bleeding. Patient reports she kept it tightly wrapped with Coban during this time. It was not until yesterday she noticed discoloration and, when a family member saw today, told her she needed to come i nto the emergency department. Patient told triage she does not have diabetes and while she does not appear to have diabetes medication on her active medications list, she does have a previous diagnosis of type 2 diabetes with associated neuropathy. Incidentally, patient had a right ankle fracture in January treated by Dr. Hallman and is currently in a walking boot. Patient also has some other medical issues including an evaluation by her primary care just 2 days ago for hypotension. Patient was given midodrine but states she has not picked it up or started it back. She did present hypotensive here in the emergency department today as well as tachycardic. She has pitting edema in her right foot and ankle with a history of CHF noted in her chart. Patient's right second toe is completely black and weathered with erythema at the MTP joint extending into the distal portion of the forefoot. Patient denies pain. Patient reports no working heat in her apartment at this time and has only been using a small space heater to keep warm. She thinks she may have gotten frostbite. 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, managed as type 2 Diabetic neuropathy Diabetic peripheral neuropathy associated with type 2 diabetes mellitus Fall with injury Family history of colon cancer requiring screening colonoscopy GERD (gastroesophageal reflux disease) Head injury due to trauma HTN (hypertension) Hyperlipidemia Hypotension Insomnia Myocardial infarction Neck injury Nonscarring hair loss Obesity EDNA (obstructive sleep apnea) Pain associated with defecation Recurrent UTI Renal calculus, left treated with ESWL with resolution S/P extracorporeal shock wave therapy Secondary hyperparathyroidism of renal origin Tobacco abuse Urolithiasis Surgical History H/O bariatric surgery S/P angioplasty with stent Family History Mother , at age 86 CAD (coronary artery disease) Diabetes Myocardial infarction Hypertension Father , AGE 72 Diabetes CAD (coronary artery disease) Cancer LUNG Brother Diabetes CAD (coronary artery disease) Hypertension Sister Diabetes Social History Smoking and tobacco/nicotine status: current every day tobacco/nicotine user cigarettes Alcohol intake: never Adopted: No Caregiver/support person: No Marital status: Legally Current occupational status: retired and disabled Current gender identity: Female Female Reproductive History: Spontaneous abortions: No Physical Exam Const: COMMON NORMALS: no acute distress, patient oriented x3 and alert HENMT: COMMON NORMALS: normocephalic, atraumatic and hearing grossly normal bilaterally HEAD & SCALP: normocephalic and atraumatic Eye: COMMON NORMALS: Equal, round and reactive pupils present, EOMs intact bilaterally and conjunctivae normal CONJUNCTIVA: Yes conjunctivae normal PUPIL: Yes Equal, round and reactive pupils present Neck/C-Spine: COMMON NORMALS: full ROM and no JVD Lymph: LYMPHATIC: no lymphadenopathy noted Resp: COMMON NORMALS: normal respiratory effort, No retractions and No use of accessory muscles Cardio: COMMON NORMALS: no JVD and regular rate RATE: regular rate Extremity: NARRATIVE EXTREMITY EXAM: Patient is ambulatory and weightbearing with the use of a walking boot to the right lower extremity patient unable to move the right second toe. Right second toe is weathered, black, with erythematous MTP joint extending into the distal forefoot. Neuro: COMMON NORMALS: patient oriented x3 SENSORIUM/ORIENTATION: Yes alert Psych: COMMON NORMALS: mental status grossly normal, Normal thought process present, cooperative and normal affect THOUGHT PROCESS: Normal thought process present Skin: NARRATIVE SKIN EXAM: Patient has 2+ pitting edema noted to the right foot and right ankle area. Course Vital Signs: Vital signs: Vital Signs Temperature 98.3 F 04/25/23 12:47 Pulse Rate 95 04/25/23 15:44 Respiratory Rate 18 04/25/23 15:44 Blood Pressure 152/92 04/25/23 15:44 Pulse Oximetry 97 04/25/23 15:44 Oxygen Delivery Me thod Room Air 04/25/23 15:44 MDM - Extremity (Nontraumatic) Medical Decision Making Patient presents emergency department today for complaints of right second toe discoloration. Visual evaluation of the toe immediately reveals necrosis but there is concern as there is erythema at the MTP joint and extending to the distal end of the right forefoot as well. Patient has 2-3+ pitting edema which is difficult to tell if new or due to CHF or ORIF from 2 months ago. Patient came in hypotensive and tachycardic. There is documentation for concerns of hy potension-even as recently as 2 days ago by her primary care doctor. Evaluation was performed to look into hypotension, tachycardia, edema, and necrosis of her toe here in the ER. Consulted with Dr Newton on arrival of the patient. I did reach out to Dr. Hubbard and spoke with him regarding the finding. It does appear to be a stable necrosis most likely due to compression of the vasculature resulting in lack of blood flow. He indicated he is in clinic but is coming to see the patient At bedside here in the department. Lab evaluation was concerning for HEBERT but increase in total bili, AST, bili in the UA as well as new bili findings. There is a social component to this case as the patient does not have heat in her home currently and temperatures have been getting below freezing at night. I spoke with Dr. Reece who is familiar with this patient as he saw her for her acute CHF exacerbation in the past. We looked over her labs together and discussed the findings of UTI and increased bili. He is requesting a CT of the abdomen and pelvis as well as an ultrasound to rule out DVT in the right lower extremity given her postoperative status and edema. He also indicated he would be visiting the patient at bedside. Patient was seen and evaluated at bedside and agreement for inpatient admission was reached. At this time, discussed case with Dr. Hernández who has agreed to help place inpatient orders to facilitate getting patient admitted to the floor for continued management and treatment by hospitalist and orthopedic services. Differential Diagnosis Likely cellulitis and lower extremity edema; Unlikely herpes zoster, gout, superficial thrombophlebitis or deep vein thrombosis of lower extremity Lab Data 04/25/23 14:08 04/25/23 14:08 Radiology Impressions Chest X-Ray 04/25/23 13:46 IMPRESSION: No acute findings. Foot X-Ray 04/25/23 14:43 IMPRESSION: No acute findings. Venous Duplex 04/25/23 15:42 IMPRESSION: No evidence of deep vein thrombosis. Laboratory Results WBC 6.89 10^3/uL (3.29-11.43) 04/25/23 14:08 RBC 4.10 10^6/uL (3.85-5.65) 04/25/23 14:08 Hgb 13.00 g/dL (11.27-16.99) 04/25/23 14:08 Hct 40.5 % (36-47) 04/25/23 14:08 MCV 98.8 fl (85-98) H 04/25/23 14:08 MCH 31.7 pg (27-33) 04/25/23 14:08 MCHC 32.1 g/dL (30-55) 04/25/23 14:08 RDW 16.9 % (12.1-15.1) H 04/25/23 14:08 Plt Count 188 10^3/cmm (157-399) 04/25/23 14:08 MPV 12.2 fL (7.4-10.4) H 04/25/23 14:08 Neut % (Auto) 67.1 % 04/25/23 14:08 Lymph % (Auto) 24.4 % 04/25/23 14:08 Hays % (Auto) 7.4 % 04/25/23 14:08 Eos % (Auto) 0.4 % 04/25/23 14:08 Baso % (Auto) 0.4 % 04/25/23 14:08 Neut # (Auto) 4.62 10^3/uL (1.8-7.7) 04/25/23 14:08 Lymph # (Auto) 1.7 10^3/uL (0.8-4.8) 04/25/23 14:08 Hays # (Auto) 0.5 10^3/uL (0.2-0.9) 04/25/23 14:08 Eos # (Auto) 0.0 10^3/uL (0.0-0.8) 04/25/23 14:08 Baso # (Auto) 0.0 10^3/uL (0.0-0.1) 04/25/23 14:08 Nucleated RBC % (auto) 0 % 04/25/23 14:08 Nucleated RBCs # 0.0 /100WBC 04/25/23 14:08 ESR 8 mm/hr (0-15) 04/25/23 14:08 Sodium 139 mmol/L (136-145) 04/25/23 14:08 Potassium 3.4 mmol/L (3.5-5.1) L 04/25/23 14:08 Chloride 105 mmol/L (98-107) 04/25/23 14:08 Carbon Dioxide 23 mmol/L (22-29) 04/25/23 14:08 Anion Gap 14.4 (5-19) 04/25/23 14:08 BUN 6 mg/dL (8-23) L 04/25/23 14:08 Creatinine 0.8 mg/dL (0.5-0.9) 04/25/23 14:08 GFR Calculation 71.5 mL/min (90-130) L 04/25/23 14:08 Glucose 68 mg/dL (65-115) 04/25/23 14:08 Calculated Osmolality 284 mOsm/kg (285-295) L 04/25/23 14:08 Lactic Acid 1.2 mmol/L (0.5-2.2) 04/25/23 14:08 Calcium 7.8 mg/dL (8.5-10.5) L 04/25/23 14:08 Total Bilirubin 1.9 mg/dL (0.15-1.2) H 04/25/23 14:08 AST 41 U/L (0-32) H 04/25/23 14:08 ALT 27 U/L (0-33) 04/25/23 14:08 Alkaline Phosphatase 126 U/L (35-105) H 04/25/23 14:08 C-Reactive Protein 14.9 mg/L (0.0-4.9) H 04/25/23 14:08 NT-Pro-B Natriuret Pep 3619 pg/mL (0-125) H 04/25/23 14:08 Total Protein 5.4 g/dL (6.6-8.7) L 04/25/23 14:08 Albumin 2.2 g/dL (3.5-5.2) L 04/25/23 14:08 Globulin 3.2 g/dL (1.3-4.6) 04/25/23 14:08 Procalcitonin 0.21 ng/mL (0-0.5) 04/25/23 14:08 Urine Color Yellow (Yellow) 04/25/23 14:36 Urine Appearance Cloudy (CLEAR) A 04/25/23 14:36 Urine pH 6.5 (5-7) 04/25/23 14:36 Ur Specific Reeders 1.015 (1.005-1.030) 04/25/23 14:36 Urine Protein 1+ (Negative) H 04/25/23 14:36 Urine Glucose (UA) Norm (Normal) 04/25/23 14:36 Urine Ketones 2+ (Negative) H 04/25/23 14:36 Urine Blood 2+ (Negative) H 04/25/23 14:36 Urine Nitrate Positive (Negative) H 04/25/23 14:36 Urine Bilirubin 1+ (Negative) H 04/25/23 14:36 Urine Urobilinogen 4+ mg/dL (Negative) H 04/25/23 14:36 Ur Leukocyte Esterase 2+ (Negative) H 04/25/23 14:36 Urine RBC 10-15 /hpf (0-2) H 04/25/23 14:36 Urine WBC Too numerous to cnt /hpf (0-5) H 04/25/23 14:36 Ur Squamous Epith Cells 5-10 /hpf (0-5) H 04/25/23 14:36 Calcium Oxalate Crystal 10-15 /hpf H 04/25/23 14:36 Amorphous Sediment Trace /hpf 04/25/23 14:36 Urine Bacteria 2+ /hpf (NONE) H 04/25/23 14:36 Hyaline Casts 0-4 /lpf H 04/25/23 14:36 Urine Mucus 4+ /hpf 04/25/23 14:36 XR interpretation done by ED provider, pending radiology final review (CT abdomen pelvis pending final read) Discharge Plan Discharge Patient Disposition: Admitted As Inpatient Clinical Impression: Necrosis of toe, CHF (congestive heart failure), Recurrent UTI, COPD (chronic obstructive pulmonary disease), Type 2 diabetes mellitus with diabetic nephropathy Condition: Stable Coding Level of Care Code ED Folder Stitcher Operator for 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
[2023-04-25 14:37] LABS: Lactic Sepsis W/Reflex 1.2 mmol/L (0.5-2.2)
--- NOTE | 2023-04-25 14:42 | PC.PHAR ---
pts daughter verified pts medications-pts daughter states the pts enalapril maleate 2.5mg one tab hs filled 04/01/23 30d/s,metoprolol succinate er 25mg hs filled 03/29/23 30d/s and kcl 10meq every 48 hours filled 02/04/23 29d/s was all dced-
[2023-04-25 14:43] LABS: Erythrocyte Sedimentation Rate 8 mm/hr (0-15)
--- NOTE | 2023-04-25 14:43 | XRR_ITS ---
PROCEDURE INFORMATION: Exam: XR Right Foot Exam date and time: 04/25/2023 2:50 PM Age: 67 years old Clinical indication: Other: RT 2nd toe black; Prior surgery; Surgery date: 6+ months; Surgery type: RT ankle; Additional info: Necrosis, attn 2nd toe, distal forefoot. Per Dr preston TECHNIQUE: Imaging protocol: Radiologic exam of the right foot. Views: 3 or more views. COMPARISON: CR (LOW EXM, ) 01/26/2023 12:54 PM FINDINGS: Bones/joints: Status post ORIF distal tibial and fibular fractures. No acute bony abnormality seen. Soft tissues: Normal. XR/XR foot RT min 3V* [id number] IMPRESSION: No acute findings.
[2023-04-25 14:48] LABS: NT Pro B Type Natriuretic Pept 3619 pg/mL (0-125); Procalcitonin 0.21 ng/mL (0-0.5)
[2023-04-25 14:57] LABS: Blood Urine 2+ (Negative); Glucose Urine UA Norm (Normal); Ketones Urine 2+ (Negative); Nitrate Urine Positive (Negative); Protein Urine 1+ (Negative); Specific Gravity, Urine 1.015 (1.005-1.030); Urine Appearance Cloudy (CLEAR); Urine Color Yellow (Yellow); pH Urine 6.5 (5-7)
[2023-04-25 14:58] LABS: Add Urine Microscopic? YES; Bilirubin Urine 1+ (Negative); Leukocyte Esterase Urine 2+ (Negative); Urobilinogen Urine 4+ mg/dL (Negative)
[2023-04-25 14:59] LABS: Alanine Aminotransferase 27 U/L (0-33); Albumin Level 2.2 g/dL (3.5-5.2); Alkaline Phosphatase 126 U/L (35-105); Anion Gap 14.4 (5-19); Aspartate Amino Transferase 41 U/L (0-32); Blood Urea Nitrogen 6 mg/dL (8-23); C Reactive Protein 14.9 mg/L (0.0-4.9); Calcium 7.8 mg/dL (8.5-10.5); Carbon Dioxide 23 mmol/L (22-29); Chloride 105 mmol/L (98-107); Creatinine Clr Calc Pharmacy 70.5375; Globulin 3.2 g/dL (1.3-4.6); Glomerular Filtration Rate 71.5 mL/min (90-130); Glucose 68 mg/dL (65-115); Osmolality Calculated 284 mOsm/kg (285-295); Potassium 3.4 mmol/L (3.5-5.1); Sodium 139 mmol/L (136-145); Total Bilirubin 1.9 mg/dL (0.15-1.2); Total Protein 5.4 g/dL (6.6-8.7)
[2023-04-25 15:03] LABS: Add Urine Culture? Yes; Amorphous Sediment Urine TRACE /hpf; Bacteria Urine 2+ /hpf; Hyaline Casts Urine 0-4 /lpf; Mucus Urine 4+ /hpf; WBC Urine TOO NUMEROUS TO CNT /hpf (0-5)
--- NOTE | 2023-04-25 15:42 | USR_ITS ---
PROCEDURE INFORMATION: Exam: US Duplex Right Lower Extremity Veins, Limited Exam date and time: 04/25/2023 4:08 PM Age: 67 years old Clinical indication: Edema, localized; Lower extremity, right; Prior surgery; Surgery date: 1-6 months; Surgery type: Orif; Additional info: Edema, post op 1m from ankle orif, HX chf but bnp not significantly TECHNIQUE: Imaging protocol: Real-time duplex ultrasound of the right extremity with 2-D turner scale, color Doppler flow and spectral waveform analysis including responses to compression and other maneuvers (when performed) with image documentation. Limited exam was focused on the right lower extremity veins. COMPARISON: CT ankle RT wo con* [id number] 01/26/2023 3:40 AM FINDINGS: Right deep veins: Unremarkable. The common femoral, femoral, proximal profunda femoral and popliteal veins are patent without thrombus. Normal Doppler waveforms. Normal compressibility and/or augmentation response. Superficial veins: Unremarkable. Saphenofemoral junction is patent without thrombus. Soft tissues: Unremarkable. US/[place] [id number] IMPRESSION: No evidence of deep vein thrombosis.
--- NOTE | 2023-04-25 15:42 | CTR_ITS ---
PROCEDURE INFORMATION: Exam: CT Abdomen And Pelvis Without Contrast Exam date and time: 04/25/2023 4:40 PM Age: 67 years old Clinical indication: Abnormal findings; Abnormal lab test; Other: Elevated bili, elevated tbili, ua bili, urobiligen, ; additional info: Elevated bili, elevated tbili, ua bili, urobiligen, ast. Per Dr stephens TECHNIQUE: Imaging protocol: Computed tomography of the abdomen and pelvis without contrast. Radiation optimization: All CT scans at this facility use at least one of these dose optimization techniques: automated exposure control; mA and/or kV adjustment per patient size (includes targeted exams where dose is matched to clinical indication); or iterative reconstruction. REPORTING DATA: Count of CT and Cardiac NM exams in prior 12 months: This patient has received 6 known CTs and 0 known cardiac nuclear medicine studies in the 12 months prior to the current study. COMPARISON: CT abdomen pelvis wo con [id number] 01/29/2023 6:31 PM RADIATION DOSE METRICS: Total DLP (mGy-cm): 775.33 FINDINGS: Coronary arteries: Coronary artery calcifications. Liver: Diffuse fatty infiltration of the liver. No suspicious nodule. Gallbladder and bile ducts: 5.3 cm lamellated calculus in the gallbladder. No visible wall thickening. The bile ducts are normal. Pancreas: Atrophic pancreas. No focal lesion. Spleen: Normal. No splenomegaly. Adrenal glands: Normal. No mass. Kidneys and ureters: 1 mm left and right renal calculi. No ureteral calculus or hydronephrosis. Stomach and bowel: Gastric bypass changes. Diverticulosis of the colon. No diverticulitis. Partial small bowel resection. No obstruction. Appendix: The appendix is visualized and is normal. Intraperitoneal space: Mild ascites in the left upper quadrant and pelvis. No free peritoneal air. Vasculature: Arterial calcifications. No aneurysm. Lymph nodes: Unremarkable. No enlarged lymph nodes. Urinary bladder: Unremarkable as visualized. Reproductive: Unremarkable as visualized. Bones/joints: Mild degenerative changes of the spine. No acute fracture. Soft tissues: Mild subcutaneous soft tissue edema. Other findings: 2.9 x 4.5 x 4.1 cm oval hematoma in the inferior left abdominal rectus muscle. CT/CT abdomen pelvis wo con [id number] IMPRESSION: 1. 4.5 cm hematoma in the inferior left abdominal rectus muscle. 2. Diffuse fatty infiltration of the liver. 3. Mild ascites. 4. Mild body wall edema. 5. Cholelithiasis.
[2023-04-25 15:44] VITALS: BP 152/92; PULSE 95; RESP 18; O2SAT 97
[2023-04-25] MEDS: sodium chloride 0.9% 500 ML IV (15:44)
[2023-04-25] MEDS: cefTRIAXone 1,000 MG in sodium chloride 0.9% (plus) 50 ML 100 MG IV (15:47)
--- NOTE | 2023-04-25 16:37 | P.HP_ITS ---
Providers/Chief Complaint Primary Care Provider: Doug Allen DO Chief Complaint: second toe right foot black History of Present Illness Peri Cid is a 67 year old female with a past medical history of syncope, history of chronic hypotension on midodrine, history of chronic GI bleed, on anticoagulation Eliquis, history of chronic UTIs, history of right ankle fracture, hyperlipidemia, type 2 diabetes mellitus, B12 deficiency, history of CHF, who presents [facility] adds she was cutting her toenails, on her right foot, second digit, and it bled for 8 days, now her right toe is black, she has no sensation in her toe, she denies any chest pain, no palpitations, no shortness of breath, no abdominal pain, no lightheadedness, no dizziness, her blood pressures were been noted to be low in the emergency room she was given fluids but she tells me that her blood pressures are always low, she was taken off her midodrine for some period of time, but is now back on it, denies any chest pain, palpitations, shortness of breath, no abdominal pain, no lightheadedness, dizziness, no diarrhea, she does report that she just came off antibiotics for UTI, Review of Systems Const: Denies: fever(s) Eyes: Denies: change in vision Card: Denies: chest pain Resp: Denies: dyspnea GI: Denies: abdominal pain, nausea or vomiting : Denies: flank pain or difficulty voiding Musc: Denies: neck pain or back pain Neuro: Denies: headache(s) Psych: Denies: anxiety Medications/Allergies Home Medications Medication Instructions Recorded Confirmed Last Taken Type albuterol sulfate 90 mcg/actuation 2 puff inhalation Q6H PRN 11/29/20 04/25/23 Unknown History aerosol inhaler Shortness Of Breath furosemide 40 mg tablet 40 mg PO Q48H #90 tabs 06/11/22 04/25/23 04/23/23 Rx calcitriol 0.25 mcg capsule 0.25 mcg PO .ON MON,WED,Sat10/15/22 04/25/23 02/13/23 History apixaban 5 mg tablet (Eliquis) 5 mg PO BID #180 tabs 01/24/23 04/25/23 04/24/23 Rx clopidogrel 75 mg tablet 75 mg PO QAM 01/26/23 04/25/23 04/24/23 History lansoprazole 30 mg capsule,delayed 30 mg PO QAM 01/26/23 04/25/23 04/24/23 History release levothyroxine 112 mcg tablet 112 mcg PO QAM 01/26/23 04/25/23 04/24/23 History lidocaine-prilocaine 2.5 %-2.5 % See Rx Instructions .Route .COMPLEX 01/26/23 04/25/23 Unknown History topical cream nitroglycerin 0.4 mg sublingual 0.4 mg sublingual Q5M PRN Chest 01/26/23 04/25/23 Unknown History tablet (Nitrostat) Pain omega-3 acid ethyl esters 1 gram 3 cap PO DAILY 01/26/23 04/25/23 04/24/23 History capsule ascorbic acid (vitamin C) 500 mg 500 mg PO QAM #90 tabs 03/26/23 04/25/23 04/24/23 Rx tablet (Vitamin C) methenamine hippurate 1 gram tablet 1 g PO QAM #90 tabs 03/26/23 04/25/23 04/24/23 Rx gabapentin 300 mg capsule See Rx Instructions .Route 04/01/23 04/25/23 04/24/23 Rx .COMPLEX #150 caps tramadol 50 mg tablet 50 mg PO BID PRN Pain #60 tabs 04/10/23 04/25/23 Unknown Rx midodrine 5 mg tablet 5 mg PO TID 30 days #90 tabs 04/23/23 04/25/23 04/24/23 Rx fluticasone propionate 50 2 spray intranasal DAILY PRN 04/25/23 04/25/23 Unknown History mcg/actuation nasal Allergy Symptoms spray,suspension mirtazapine 30 mg tablet 30 mg PO BEDTIME 04/25/23 04/25/23 04/24/23 History rosuvastatin 10 mg tablet 10 mg PO BEDTIME 04/25/23 04/25/23 04/24/23 History tizanidine 4 mg tablet 4 mg PO Q6H PRN Muscle Spasm 04/25/23 04/25/23 Unknown History Allergies Allergy/AdvReac Type Severity Reaction Status Date / Time hepatitis B immune globulin Allergy Unknown Unknown Verified 04/25/23 14:35 PFSH Acute PFSH: Medical History ASHD (arteriosclerotic heart disease) CHF (congestive heart failure) Chronic kidney disease Chronic rhinosinusitis CKD (chronic kidney disease) COPD (chronic obstructive pulmonary disease) Coronary artery disease 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, managed as type 2 Diabetic neuropathy Diabetic peripheral neuropathy associated with type 2 diabetes mellitus Fall with injury Family history of colon cancer requiring screening colonoscopy GERD (gastroesophageal reflux disease) Head injury due to trauma HTN (hypertension) Hyperlipidemia Hypotension Insomnia Myocardial infarction Neck injury Nonscarring hair loss Obesity EDNA (obstructive sleep apnea) Pain associated with defecation Recurrent UTI Renal calculus, left treated with ESWL with resolution S/P extracorporeal shock wave therapy Secondary hyperparathyroidism of renal origin Tobacco abuse Urolithiasis Surgical History H/O bariatric surgery S/P angioplasty with stent Family History Mother , at age 86 CAD (coronary artery disease) Diabetes Myocardial infarction Hypertension Father , AGE 72 Diabetes CAD (coronary artery disease) Cancer LUNG Brother Diabetes CAD (coronary artery disease) Hypertension Sister Diabetes Social History Smoking and tobacco/nicotine status: current every day tobacco/nicotine user cigarettes Alcohol intake: never Adopted: No Caregiver/support person: No Marital status: Legally Current occupational status: retired and disabled Current gender identity: Female Female Reproductive History: Spontaneous abortions: No Vitals/I&O/Wt Last Vital Signs Temp 98.3 F 04/25/23 12:47 Pulse 95 04/25/23 15:44 Resp 18 04/25/23 15:44 BP 152/92 04/25/23 15:44 Pulse Ox 97 04/25/23 15:44 O2 Del Method Room Air 04/25/23 15:44 Weight last 48 hrs Weight 81.647 kg Physical Exam Const: COMMON NORMALS: no acute distress and patient oriented x3 HENMT: COMMON NORMALS: normocephalic HEAD & SCALP: normocephalic Eye: COMMON NORMALS: Equal, round and reactive pupils present and EOMs intact bilaterally Neck/C-Spine: COMMON NORMALS: no JVD Lymph: LYMPHATIC: no lymphadenopathy noted Chest: COMMONS NORMALS: normal inspection of the chest Resp: COMMON NORMALS: normal respiratory effort, No retractions, No use of accessory muscles and clear to auscultation bilaterally AUSCULTATION: clear to auscultation bilaterally Cardio: COMMON NORMALS: regular rate, regular rhythm, S1 normal heart sound present and S2 normal heart sound present RATE: regular rate RHYTHM: regular rhythm HEART SOUNDS: S1 normal heart sound present and S2 normal heart sound present GI: COMMON NORMALS: Normal to inspection, nondistended, normoactive bowel sounds present, Soft to palpation and non-tender PALPATION: Yes Soft to palpation : COMMON NORMALS: Yes no CVA tenderness Extremity: COMMON NORMALS: no calf tenderness and no pedal edema NARRATIVE EXTREMITY EXAM: Right lower extremity, nonpitting edema, no calf pain, no calf swelling, right lower extremity, second digit, dry gangrene, black discoloration, DP PT pulses palpable, no pain complaints, no pallor, no pulselessness, no poikilothermia, does have neuropathy Neuro: COMMON NORMALS: patient oriented x3, CN's II-XII intact bilaterally, moves all extremities and no focal motor deficits Psych: COMMON NORMALS: mental status grossly normal Data 04/25/23 14:08 04/25/23 14:08 Micro: Microbiology 04/25/23 14:08 Blood Culture - Preliminary Blood SPECIMEN COLLECTED 04/25/23 14:00 Blood Culture - Preliminary Blood SPECIMEN COLLECTED A&P Assessment and plan (1) Dry gangrene: (2) Hypotension: Qualifiers: Hypotension type: unspecified hypotension type Qualified Code(s): I95.9 - Hypotension, unspecified (3) Weakness: (4) UTI (urinary tract infection): (5) HTN (hypertension): Qualifiers: Hypertension type: primary hypertension Qualified Code(s): I10 - Essential (primary) hypertension (6) S/P angioplasty with stent: (7) EDNA (obstructive sleep apnea): (8) Hyperlipidemia: Qualifiers: Hyperlipidemia type: unspecified Qualified Code(s): E78.5 - Hyperlipidemia, unspecified (9) CKD (chronic kidney disease): (10) Diabetes 1.5, managed as type 2: (11) ASHD (arteriosclerotic heart disease): (12) CHF (congestive heart failure): Qualifiers: Heart failure type: unspecified Heart failure chronicity: acute on chronic Qualified Code(s): I50.9 - Heart failure, unspecified Plan Dry gangrene, right foot, second digit -Podiatry has been consulted by ER Right lower extremity swelling, venous ultrasound Transaminitis, with elevated bilirubin, no abdominal pain complaints, elevated alk phos, CT scan abdomen pelvis without contrast Elevated BNP, no chest pain, no shortness of breath, no complaint of lower extreme edema, Chronic hypotension, continue midodrine, We will avoid fluid therapy UTI continue Rocephin Full code Continue Eliquis, for history of atrial fibrillation History of CAD, continue Plavix, serial EKGs, serial troponins History of GI bleed, monitor hemoglobin Attestations Medical Necessity Statement*: Patient requires hospitalization, outpatient with observation, for dry gangrene, right foot, second digit, with hyperbilirubinemia, UTI, Diagnoses Dry gangrene I96 Hypotension I95.9 Hypotension type: unspecified hypotension type Weakness R53.1 UTI (urinary tract infection) N39.0 HTN (hypertension) I10 Hypertension type: primary hypertension S/P angioplasty with stent Z95.820 EDNA (obstructive sleep apnea) G47.33 Hyperlipidemia E78.5 Hyperlipidemia type: unspecified CKD (chronic kidney disease) 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
--- NOTE | 2023-04-25 16:45 | P.CONIM_ITS ---
Providers/Reason For Consult Consulting Physician/Specialty*: Dell Hubbard D.P.M. Reason for Consult*: Dry gangrene right second toe Primary Care Provider: Doug Allen DO History of Present Illness History of Present Illness Peri Cid is a 67 year old female presents with dry gangrene to the right second toe. I was consulted for evaluation of patient's lower extremities. She reports trimming her own toenailsApproximately 2 weeks ago and excellently cut her right second toe. She self bandaged and kept it wrapped tightly. She noticed concerning discoloration yesterday, was advised by a family member to present to the emergency department. Review of Systems General: Reports: 10 or more systems reviewed and unremarkable except in HPI and below Const: Denies: fever(s) or chills Eyes: Denies: change in vision Card: Denies: chest pain or palpitations Resp: Denies: dyspnea or productive cough GI: Denies: abdominal pain, nausea or vomiting : Denies: flank pain Musc: Reports: extremity swelling, joint stiffness and deformity Skin/Breast: Reports: sores, changes in skin color, dry skin, nail changes and change in hair; Denies: erythema Neuro: Reports: numbness in extremities, sensory changes and difficulty walking Psych: Denies: suicidal ideation Endo: Denies: change in body appearance Romain/Lymph: Denies: tender lymph nodes Medications/Allergies Home Medications Medication Instructions Recorded Confirmed Last Taken Type albuterol sulfate 90 mcg/actuation 2 puff inhalation Q6H PRN 11/29/20 04/25/23 Unknown History aerosol inhaler Shortness Of Breath furosemide 40 mg tablet 40 mg PO Q48H #90 tabs 06/11/22 04/25/23 04/23/23 Rx calcitriol 0.25 mcg capsule 0.25 mcg PO .ON MON,WED,FRI 10/15/22 04/25/23 02/13/23 History apixaban 5 mg tablet (Eliquis) 5 mg PO BID #180 tabs 01/24/23 04/25/23 04/24/23 Rx clopidogrel 75 mg tablet 75 mg PO QAM 01/26/23 04/25/23 04/24/23 History lansoprazole 30 mg capsule,delayed 30 mg PO QAM 01/26/23 04/25/23 04/24/23 History release levothyroxine 112 mcg tablet 112 mcg PO QAM 01/26/23 04/25/23 04/24/23 History lidocaine-prilocaine 2.5 %-2.5 % See Rx Instructions .Route .COMPLEX 01/26/23 04/25/23 Unknown History topical cream nitroglycerin 0.4 mg sublingual 0.4 mg sublingual Q5M PRN Chest 01/26/23 04/25/23 Unknown History tablet (Nitrostat) Pain omega-3 acid ethyl esters 1 gram 3 cap PO DAILY 01/26/23 04/25/23 04/24/23 History capsule ascorbic acid (vitamin C) 500 mg 500 mg PO QAM #90 tabs 03/26/23 04/25/23 04/24/23 Rx tablet (Vitamin C) methenamine hippurate 1 gram tablet 1 g PO QAM #90 tabs 03/26/23 04/25/23 04/24/23 Rx gabapentin 300 mg capsule See Rx Instructions .Route 04/01/23 04/25/23 04/24/23 Rx .COMPLEX #150 caps tramadol 50 mg tablet 50 mg PO BID PRN Pain #60 tabs 04/10/23 04/25/23 Unknown Rx midodrine 5 mg tablet 5 mg PO TID 30 days #90 tabs 04/23/23 04/25/23 04/24/23 Rx fluticasone propionate 50 2 spray intranasal DAILY PRN 04/25/23 04/25/23 Unknown History mcg/actuation nasal Allergy Symptoms spray,suspension mirtazapine 30 mg tablet 30 mg PO BEDTIME 04/25/23 04/25/23 04/24/23 History rosuvastatin 10 mg tablet 10 mg PO BEDTIME 04/25/23 04/25/23 04/24/23 History tizanidine 4 mg tablet 4 mg PO Q6H PRN Muscle Spasm 04/25/23 04/25/23 Unknown History Allergies Allergy/AdvReac Type Severity Reaction Status Date / Time hepatitis B immune globulin Allergy Unknown Unknown Verified 04/25/23 14:35 PFSH Acute PFSH: Medical History ASHD (arteriosclerotic heart disease) CHF (congestive heart failure) Chronic kidney disease Chronic rhinosinusitis CKD (chronic kidney disease) COPD (chronic obstructive pulmonary disease) Coronary artery disease 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, managed as type 2 Diabetic neuropathy Diabetic peripheral neuropathy associated with type 2 diabetes mellitus Fall with injury Family history of colon cancer requiring screening colonoscopy GERD (gastroesophageal reflux disease) Head injury due to trauma HTN (hypertension) Hyperlipidemia Hypotension Insomnia Myocardial infarction Neck injury Nonscarring hair loss Obesity EDNA (obstructive sleep apnea) Pain associated with defecation Recurrent UTI Renal calculus, left treated with ESWL with resolution S/P extracorporeal shock wave therapy Secondary hyperparathyroidism of renal origin Tobacco abuse Urolithiasis Surgical History H/O bariatric surgery S/P angioplasty with stent Family History Mother , at age 86 CAD (coronary artery disease) Diabetes Myocardial infarction Hypertension Father , AGE 72 Diabetes CAD (coronary artery disease) Cancer LUNG Brother Diabetes CAD (coronary artery disease) Hypertension Sister Diabetes Social History Smoking and tobacco/nicotine status: current every day tobacco/nicotine user cigarettes Alcohol intake: never Adopted: No Caregiver/support person: No Marital status: Legally Current occupational status: retired and disabled Current gender identity: Female Female Reproductive History: Spontaneous abortions: No Vitals/I&O/Wt Last Vital Signs Temp 98.3 F 04/25/23 12:47 Pulse 95 04/25/23 15:44 Resp 18 04/25/23 15:44 BP 152/92 04/25/23 15:44 Pulse Ox 97 04/25/23 15:44 O2 Del Method Room Air 04/25/23 15:44 Weight last 48 hrs Weight 180 lb Physical Exam Narrative: GENERAL: Patient is alert and oriented ?3 and in no acute distress. The f ollowing is a focused bilateral lower extremity exam. VASCULAR: Dorsalis pedis faint bilaterally. Posterior tibial arteries faint. Capillary refill time less than 5 seconds to the distal hallux bilaterally. Calf is supple and nontender proximally and distally. Decreased pedal hair bilaterally, +1 pitting to the right lower extremity. NEUROLOGICAL: Protective sensation diminished to the lower extremities. DERMATOLOGICAL: Stable dry gangrene to the right second toe without purulence, no proximal lymphangitic streaking, dependent rubor to the right forefoot localized at the base of the right second toe. There is no increase in skin temperature at the right forefoot compared to the contralateral limb. MUSCULOSKELETAL: No pain with posterior calf squeeze bilaterally. Muscle strength +5 in all 3 planes bilateral foot and ankle. Data 04/25/23 14:08 04/25/23 14:08 Micro: Microbiology 04/25/23 14:08 Blood Culture - Preliminary Blood SPECIMEN COLLECTED 04/25/23 14:00 Blood Culture - Preliminary Blood SPECIMEN COLLECTED A&P Assessment and plan (1) Dry gangrene: (2) Necrosis of toe: (3) Type 2 diabetes mellitus with diabetic nephropathy: Plan Pleasant 67-year-old female presents with dry gangrene to the right second toe. X-ray right foot 3 views negative for acute bony abnormality, no soft tissue emphysema and no foreign body to the right foot. Venous duplex negative for deep vein thrombosis On exam patient has dry stable gangrenous changes to the right second toe, no acute signs of infection. Significantly diminished pedal pulse on exam. Recommend vascular work-up, will start with TREMAYNE/TBI and PVR with ultrasound Recommend vascular consultation during this hospitalization Given the patient's presentation with dry gangrene of the right second toe and poor pedal pulses, it is critical to prioritize a vascular consultation. Adequate vascular assessment will guide the management plan and may improve limb perfusion, potentially altering the prognosis and extent of required surgical intervention. Vascular consultation will be required to address the underlying vascular insufficiency before proceeding with definitive surgical management of the gangrenous toe. From my perspective amputation could potentially be done outpatient depending on availability of vascular consultation. Coding Level of Care Code Acute Code for [facility] Fwd Diagnoses Dry gangrene I96 Necrosis of toe I96 Type 2 diabetes mellitus with diabetic nephropathy E11.21
--- NOTE | 2023-04-25 17:28 | USCV_ITS ---
Peri Cid Age: 67 Gender: F : 1955 Exam Date: 04/25/2023 20:19 Ordering Phys: Danielito Reece MD Technologist: GAGAN [place] [facility] [place]: gangrenous RIGHT 2nd toe. Long-term smoker, continues smoking. Risk Factors: tobaccoism Previous Vascular Surgery: none RIGHT LEFT BP: 81.00 / 62.00 BP: 85.00/ Waveform Velocity (cm/s) Velocity (cm/s) Waveform Triphasic 116.9 Iliac Prox 140.7 Triphasic Triphasic Iliac Mid Triphasic 90.4 127.5 Triphasic 86.0 Iliac Distal 107.8 Triphasic Triphasic 60.6 LOAN COLLECTOR 101.4 Triphasic Triphasic 67.6 SFA Prox 70.7 Triphasic Triphasic 55.2 SFA Mid 59.0 Triphasic Biphasic 65.3 SFA Dist 49.7 Triphasic Biphasic 43.5 POP 43.8 Triphasic Biphasic 40.4 GOSPEL SINGER 54.5 Triphasic Biphasic 28.8 DPA 31.5 N/A 1.0 TREMAYNE 1.1 FINDINGS Mild to moderate diffuse plaques in the iliac and femoral arteries bilaterally Normal arterial Doppler of flow velocities and near normal waveforms Resting TREMAYNE of 1.0 on the right and 1.1 on the left CONCLUSIONS Minimal to moderate diffuse plaques bilaterally in the iliac and femoral arteries Normal resting ABIs bilaterally No significant arterial obstruction, based on the above findings Dr Taylor Grande MD FAC (Electronically Signed) Final Date: 26 April 2023 09:27 S
[2023-04-25 17:43] LABS: Gamma Glutamyl Transferase 67 U/L (5-36); Lipase 8 U/L (13-60)
[2023-04-25 18:50] VITALS: BP 99/58; PULSE 98; RESP 18
[2023-04-25 20:00] VITALS: BP 93/62; PULSE 89; RESP 17; TEMP 36.7; O2SAT 90
[2023-04-25 20:17] LABS: Glucose Point of Care 71 mg/dL (70-110)
[2023-04-25 20:27] LABS: Thyroid Stimulating Hormone 2.51 uIU/mL (0.27-4.20)
[2023-04-25] MEDS: apixaban 5 mg Tablet PO (20:45)
[2023-04-25] MEDS: midodrine 5 mg TABLET PO (20:46)
[2023-04-25] MEDS: mirtazapine 30 mg Tablet PO (20:46)
[2023-04-25] MEDS: atorvastatin 40 mg Tablet PO (20:46)
[2023-04-25 22:00] VITALS: PULSE 101
[2023-04-26] VITALS (15 sets, daily range): BP systolic 77–111; BP diastolic 50–74; PULSE 60–108; RESP 14–20; TEMP 36.6–36.9; O2SAT 80–98
[2023-04-26] MEDS: TRAMadol 50 mg Tablet PO (02:04)
[2023-04-26 05:29] LABS: Basophils % 0.6 %; Eosinophils # 0.1 10^3/uL (0.0-0.8); Eosinophils % 1.3 %; Hematocrit 34.5 % (36-47); Lymphocytes # 2.7 10^3/uL (0.8-4.8); Lymphocytes % 38.3 %; Mean Corpuscular HGB Conc 32.8 g/dL (30-55); Mean Corpuscular Hemoglobin 31.9 pg (27-33); Mean Corpuscular Volume 97.5 fl (85-98); Monocytes # 0.5 10^3/uL (0.2-0.9); Monocytes % 7.7 %; Neutrophils # 3.59 10^3/uL (1.8-7.7); Neutrophils % 51.8 %; Nucleated Red Blood Cells % 0 %; Platelet Count 167 10^3/cmm (157-399); Red Blood Count 3.54 10^6/uL (3.85-5.65); Red Cell Distribution Width 16.9 % (12.1-15.1); White Blood Count 6.92 10^3/uL (3.29-11.43)
[2023-04-26] MEDS: pantoprazole DR 40 mg Tablet PO (05:33)
[2023-04-26] MEDS: ascorbic acid 500 mg Tablet PO (05:33)
[2023-04-26] MEDS: levothyroxine 112 mcg Tablet PO (05:33)
[2023-04-26] MEDS: clopidogrel 75 mg Tablet PO (05:34)
[2023-04-26] MEDS: gabapentin 300 mg Capsule 900 MG PO (05:34)
[2023-04-26 05:56] LABS: Alanine Aminotransferase 25 U/L (0-33); Alkaline Phosphatase 107 U/L (35-105); Anion Gap 13.2 (5-19); Aspartate Amino Transferase 38 U/L (0-32); Blood Urea Nitrogen 7 mg/dL (8-23); Calcium 7.6 mg/dL (8.5-10.5); Carbon Dioxide 24 mmol/L (22-29); Chloride 109 mmol/L (98-107); Creatinine Clr Calc Pharmacy 70.5375; Globulin 2.8 g/dL (1.3-4.6); Glomerular Filtration Rate 83.5 mL/min (90-130); Glucose 72 mg/dL (65-115); Magnesium 1.6 mg/dL (1.7-2.3); Osmolality Calculated 293 mOsm/kg (285-295); Phosphorus 2.5 mg/dL (2.5-4.5); Potassium 3.2 mmol/L (3.5-5.1); Sodium 143 mmol/L (136-145); Total Bilirubin 1.3 mg/dL (0.15-1.2); Total Protein 4.8 g/dL (6.6-8.7)
[2023-04-26 06:07] LABS: NT Pro B Type Natriuretic Pept 5274 pg/mL (0-125)
[2023-04-26] MEDS: tizanidine 4 mg Tablet PO (06:23)
[2023-04-26 06:48] LABS: Glucose Point of Care 75 mg/dL (70-110)
[2023-04-26] MEDS: magnesium lactate 84 mg Tablet PO (08:58)
[2023-04-26] MEDS: potassium chloride ER 20 mEq Tablet 40 MEQ PO (08:59)
[2023-04-26] MEDS: omega-3 fatty acids 1,000 mg Capsule 3 MG PO (08:59)
[2023-04-26] MEDS: midodrine 5 mg TABLET PO (09:00)
[2023-04-26] MEDS: apixaban 5 mg Tablet PO ×2 (09:01→17:23)
[2023-04-26] MEDS: calcitriol 0.25 mcg Capsule PO (09:01)
[2023-04-26 11:06] LABS: Glucose Point of Care 120 mg/dL (70-110)
[2023-04-26] MEDS: cefTRIAXone 1,000 MG in sodium chloride 0.9% (plus) 50 ML 100 MG IV (14:00)
[2023-04-26] MEDS: midodrine 5 mg TABLET 10 MG PO ×2 (14:01→21:27)
--- NOTE | 2023-04-26 14:40 | ECG_ITS ---
[facility] Test Date: 2023-04-26 Pat Name: Peri Cid Department: Room: 266 Gender: Female Operating Room Technician: : 1955 Requested By: Danielito Reece Order Number: [id number] Morris MD: Gaston Yuan M.D. Measurements Intervals [place] Rate: 65 P: 33 IN: 149 QRS: -21 QRSD: 106 T: 24 QT: 406 QTc: 423 Interpretive Statements SINUS RHYTHM BORDERLINE LEFT AXIS DEVIATION [QRS AXIS < -20] Compared to ECG 04/25/2023 13:52:55 Myocardial infarct finding no longer present Electronically Signed On 04-26-2023 19:36:52 CDT by Gaston Yuan M.D. [email or web address]
--- NOTE | 2023-04-26 16:16 | P.PN_ITS ---
Subjective Subjective: Patient was seen this morning, she is hypotensive throughout the night she tells me that she always has a low blood pressure, will increase her midodrine she is agreeable, possibly low blood pressure related to UTI, she is afebrile, denies any lightheadedness, no dizziness, her right foot, second digit, does have some surrounding erythema around the dry gangrene, will start on vancomycin for cisneros rrounding cellulitis, she is on Rocephin for her UTI, will follow-up ABIs Vitals/I&O/Wt Last Vital Signs Temp 98.0 F 04/26/23 15:31 Pulse 60 04/26/23 15:31 Resp 16 04/26/23 15:31 BP 86/50 04/26/23 15:31 Pulse Ox 95 04/26/23 15:31 O2 Del Method Nasal Cannula 04/26/23 15:31 O2 Flow Rate 1.5 04/26/23 08:00 04/26/23 04/26/23 04/26/23 06:59 14:59 22:59 Intake Total 770 / 770 Balance 770 / 770 Weight last 48 hrs Weight 81.647 kg Physical Exam Const: COMMON NORMALS: no acute distress and patient oriented x3 Resp: COMMON NORMALS: normal respiratory effort, No retractions, No use of accessory muscles and clear to auscultation bilaterally AUSCULTATION: clear to auscultation bilaterally Cardio: COMMON NORMALS: regular rate, regular rhythm, S1 normal heart sound present and S2 normal heart sound present RATE: regular rate RHYTHM: regular rhythm HEART SOUNDS: S1 normal heart sound present and S2 normal heart sound present GI: COMMON NORMALS: Normal to inspection, nondistended, normoactive bowel sounds present and non-tender Extremity: COMMON NORMALS: no pedal edema Neuro: COMMON NORMALS: patient oriented x3 Data 04/26/23 05:11 04/26/23 05:11 Micro: Microbiology 04/25/23 14:08 Blood Culture - Preliminary Blood NEGATIVE TO DATE 04/25/23 14:00 Blood Culture - Preliminary Blood NEGATIVE TO DATE 04/25/23 14:36 Urine Culture - Preliminary Urine,Clean Catch A&P Assessment and plan (1) Dry gangrene: (2) Hypotension: Qualifiers: Hypotension type: unspecified hypotension type Qualified Code(s): I95.9 - Hypotension, unspecified (3) Weakness: (4) UTI (urinary tract infection): (5) HTN (hypertension): Qualifiers: Hypertension type: primary hypertension Qualified Code(s): I10 - Essential (primary) hypertension (6) S/P angioplasty with stent: (7) EDNA (obstructive sleep apnea): (8) Hyperlipidemia: Qualifiers: Hyperlipidemia type: unspecified Qualified Code(s): E78.5 - Hyperlipidemia, unspecified (9) CKD (chronic kidney disease): (10) Diabetes 1.5, managed as type 2: (11) ASHD (arteriosclerotic heart disease): (12) CHF (congestive heart failure): Qualifiers: Heart failure type: unspecified Heart failure chronicity: acute on chronic Qualified Code(s): I50.9 - Heart failure, unspecified Plan Dry gangrene, right foot, second digit -Podiatry has been consulted by ER -We will start on vancomycin due to surrounding erythema and is on Rocephin for UTI Persistent hypotension -Has chronic history of hypotension -We will increase midodrine to 10 3 times daily -Monitor in the hospital, orthostatic vitals Right lower extremity swelling, venous ultrasound negative for DVT Transaminitis, with elevated bilirubin, no abdominal pain complaints, elevated alk phos, CT scan abdomen pelvis without contrast no acute findings Elevated BNP, no chest pain, no shortness of breath, no complaint of lower extreme edema, will avoid fluids given elevated BNP Chronic hypotension, continue midodrine, We will avoid fluid therapy UTI continue Rocephin Full code Continue Eliquis, for history of atrial fibrillation History of CAD, continue Plavix, serial EKGs, serial troponins History of GI bleed, monitor hemoglobin Attestations Medical Necessity Statement*: Patient requires hospitalization, for persistent hypotension Diagnoses Dry gangrene I96 Hypotension I95.9 Hypotension type: unspecified hypotension type Weakness R53.1 UTI (urinary tract infection) N39.0 HTN (hypertension) I10 Hypertension type: primary hypertension S/P angioplasty with stent Z95.820 EDNA (obstructive sleep apnea) G47.33 Hyperlipidemia E78.5 Hyperlipidemia type: unspecified CKD (chronic kidney disease) 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
[2023-04-26 16:46] LABS: Glucose Point of Care 78 mg/dL (70-110)
[2023-04-26] MEDS: vancomycin 1,000 MG in sodium chloride 0.9% 250 ML 250 MG IV (17:21)
[2023-04-26] MEDS: gabapentin 300 mg Capsule 600 MG PO (17:23)
[2023-04-26 20:47] LABS: Glucose Point of Care 90 mg/dL (70-110)
[2023-04-26] MEDS: mirtazapine 30 mg Tablet PO (21:27)
[2023-04-26] MEDS: atorvastatin 40 mg Tablet PO (21:27)
[2023-04-27] VITALS (8 sets, daily range): BP systolic 91–101; BP diastolic 58–67; PULSE 58–86; RESP 14–17; TEMP 36.6–36.9; O2SAT 94–97
[2023-04-27 05:30] LABS: Basophils # 0.1 10^3/uL (0.0-0.1); Basophils % 0.9 %; Eosinophils # 0.2 10^3/uL (0.0-0.8); Eosinophils % 2.6 %; Hematocrit 35.6 % (36-47); Lymphocytes # 3.3 10^3/uL (0.8-4.8); Lymphocytes % 46.5 %; Mean Corpuscular HGB Conc 31.5 g/dL (30-55); Mean Corpuscular Volume 101.7 fl (85-98); Mean Platelet Volume 12.2 fL (7.4-10.4); Monocytes # 0.6 10^3/uL (0.2-0.9); Monocytes % 8.3 %; Neutrophils # 2.91 10^3/uL (1.8-7.7); Neutrophils % 41.3 %; Nucleated Red Blood Cells % 0 %; Platelet Count 173 10^3/cmm (157-399); Red Cell Distribution Width 17.3 % (12.1-15.1); White Blood Count 7.03 10^3/uL (3.29-11.43)
[2023-04-27] MEDS: gabapentin 300 mg Capsule 900 MG PO (05:36)
[2023-04-27] MEDS: ascorbic acid 500 mg Tablet PO (05:36)
[2023-04-27] MEDS: clopidogrel 75 mg Tablet PO (05:36)
[2023-04-27] MEDS: vancomycin 1,000 MG in sodium chloride 0.9% 250 ML 250 MG IV ×2 (05:36→17:25)
[2023-04-27] MEDS: levothyroxine 112 mcg Tablet PO (05:36)
[2023-04-27] MEDS: pantoprazole DR 40 mg Tablet PO (05:36)
[2023-04-27 06:07] LABS: Alanine Aminotransferase 22 U/L (0-33); Albumin Level 1.8 g/dL (3.5-5.2); Alkaline Phosphatase 107 U/L (35-105); Aspartate Amino Transferase 40 U/L (0-32); Blood Urea Nitrogen 6 mg/dL (8-23); Calcium 7.4 mg/dL (8.5-10.5); Carbon Dioxide 25 mmol/L (22-29); Chloride 110 mmol/L (98-107); Creatinine Clr Calc Pharmacy 70.5375; Globulin 2.8 g/dL (1.3-4.6); Glomerular Filtration Rate 71.5 mL/min (90-130); Glucose 76 mg/dL (65-115); Magnesium 1.8 mg/dL (1.7-2.3); Osmolality Calculated 290 mOsm/kg (285-295); Phosphorus 2.1 mg/dL (2.5-4.5); Sodium 142 mmol/L (136-145); Total Protein 4.6 g/dL (6.6-8.7)
--- NOTE | 2023-04-27 08:47 | P.PN_ITS ---
Subjective Subjective: Patient seen bedside this morning. Denies any acute events overnight. Wishing to proceed with amputation of her right second toe, she thinks it will just fall off on its own. Vitals/I&O/Wt Last Vital Signs Temp 98.4 F 04/27/23 07:47 Pulse 78 04/27/23 07:47 Resp 16 04/27/23 07:47 BP 100/65 04/27/23 07:47 Pulse Ox 97 04/27/23 07:47 O2 Del Method Room Air 04/27/23 07:47 O2 Flow Rate 2 04/26/23 19:47 04/26/23 04/27/23 04/27/23 22:59 06:59 14:59 Intake Total 610 / 1380 250 / 1630 Output Total 225 / 225 0 / 225 Balance 385 / 1155 250 / 1405 Weight last 48 hrs Weight 180 lb Physical Exam Narrative: GENERAL: Patient is alert and oriented ?3 and in no acute distress. The following is a focused bilateral lower extremity exam. VASCULAR: Dorsalis pedis faint bilaterally. Posterior tibial arteries faint. Capillary refill time less than 5 seconds to the distal hallux bilaterally. Calf is supple and nontender proximally and distally. Decreased pedal hair bilaterally, +1 pitting to the right lower extremity. NEUROLOGICAL: Protective sensation diminished to the lower extremities. DERMATOLOGICAL: Stable dry gangrene to the right second toe without purulence, no proximal lymphangitic streaking, dependent rubor to the right forefoot localized at the base of the right second toe. There is no increase in skin temperature at the right forefoot compared to the contralateral limb. MUSCULOSKELETAL: No pain with posterior calf squeeze bilaterally. Muscle strength +5 in all 3 planes bilateral foot and ankle. 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 X-ray right foot 3 views negative for acute bony abnormality, no soft tissue emphysema and no foreign body to the right foot. Venous duplex negative for deep vein thrombosis TREMAYNE/TBI and PVR performed 04/25/2023. No significant arterial obstruction found, TREMAYNE to the right one-point is 1.0, left 1.1. Patient scheduled for right second toe amputation 04/29/2023 at noon. Attestations Medical Necessity Statement*: Gangrene right second toe Coding Level of Care Code Acute Code for [facility] Diagnoses Dry gangrene I96 Necrosis of toe I96 Type 2 diabetes mellitus with diabetic nephropathy E11.21
[2023-04-27] MEDS: omega-3 fatty acids 1,000 mg Capsule 3 MG PO (09:38)
[2023-04-27] MEDS: midodrine 5 mg TABLET 10 MG PO ×3 (09:39→21:58)
[2023-04-27] MEDS: apixaban 5 mg Tablet PO (09:39)
[2023-04-27] MEDS: magnesium lactate 84 mg Tablet PO (09:39)
[2023-04-27] MEDS: tizanidine 4 mg Tablet PO (09:46)
[2023-04-27] MEDS: TRAMadol 50 mg Tablet PO (09:46)
[2023-04-27 11:33] LABS: Glucose Point of Care 90 mg/dL (70-110)
[2023-04-27] MEDS: cefTRIAXone 1,000 MG in sodium chloride 0.9% (plus) 50 ML 100 MG IV (14:40)
--- NOTE | 2023-04-27 14:59 | P.PN_ITS ---
Subjective Subjective: Patient was seen this morning, she tells me that Dr. Hubbard plans on doing surgery on her on Saturday, she denies any lightheadedness, no dizziness, her blood pressures have been soft but she tells me that they are always soft, denies any lightheadedness no dizziness no syncope no presyncope, she takes midodrine, discussed increased dose of midodrine, Vitals/I&O/Wt Last Vital Signs Temp 98.4 F 04/27/23 11:24 Pulse 60 04/27/23 11:24 Resp 14 04/27/23 11:24 BP 91/58 04/27/23 11:24 Pulse Ox 96 04/27/23 11:24 O2 Del Method Nasal Cannula 04/27/23 11:24 O2 Flow Rate 2 04/27/23 11:00 04/26/23 04/27/23 04/27/23 22:59 06:59 14:59 Intake Total 610 / 1380 250 / 1630 240 / 240 Output Total 225 / 225 0 / 225 Balance 385 / 1155 250 / 1405 240 / 240 Physical Exam Const: COMMON NORMALS: no acute distress and patient oriented x3 Resp: COMMON NORMALS: normal respiratory effort, No retractions, No use of accessory muscles and clear to auscultation bilaterally AUSCULTATION: clear to auscultation bilaterally Cardio: COMMON NORMALS: regular rate, regular rhythm, S1 normal heart sound present and S2 normal heart sound present RATE: regular rate RHYTHM: regular rhythm HEART SOUNDS: S1 normal heart sound present and S2 normal heart sound present GI: COMMON NORMALS: Normal to inspection, nondistended, normoactive bowel sounds present and non-tender Extremity: COMMON NORMALS: no pedal edema Neuro: COMMON NORMALS: patient oriented x3 Psych: COMMON NORMALS: mental status grossly normal Data 04/27/23 04:13 04/27/23 04:13 Micro: Microbiology 04/25/23 14:36 Urine Culture - Final Urine,Clean Catch 04/25/23 14:08 Blood Culture - Preliminary Blood NEGATIVE TO DATE 04/25/23 14:00 Blood Culture - Preliminary Blood NEGATIVE TO DATE A&P Assessment and plan (1) Dry gangrene: (2) Hypotension: Qualifiers: Hypotension type: unspecified hypotension type Qualified Code(s): I95.9 - Hypotension, unspecified (3) Weakness: (4) UTI (urinary tract infection): (5) HTN (hypertension): Qualifiers: Hypertension type: primary hypertension Qualified Code(s): I10 - Essential (primary) hypertension (6) S/P angioplasty with stent: (7) EDNA (obstructive sleep apnea): (8) Hyperlipidemia: Qualifiers: Hyperlipidemia type: unspecified Qualified Code(s): E78.5 - Hyperlipidemia, unspecified (9) CKD (chronic kidney disease): (10) Diabetes 1.5, managed as type 2: (11) ASHD (arteriosclerotic heart disease): (12) CHF (congestive heart failure): Qualifiers: Heart failure type: unspecified Heart failure chronicity: acute on chronic Qualified Code(s): I50.9 - Heart failure, unspecified Plan Dry gangrene, right foot, second digit -Podiatry has been consulted by ER -Continue with vancomycin due to surrounding erythema and is on Rocephin for UTI ? Arterial ultrasound ?CONCLUSIONS ?Minimal to moderate diffuse plaques bilaterally in the iliac and ?femoral arteries ?Normal resting ABIs bilaterally ?No significant arterial obstruction, based on the above findings Persistent hypotension -Has chronic history of hypotension -We will increase midodrine to 10 3 times daily -Monitor in the hospital, orthostatic vitals Right lower extremity swelling, venous ultrasound negative for DVT Transaminitis, with elevated bilirubin, no abdominal pain complaints, elevated alk phos, CT scan abdomen pelvis without contrast no acute findings Elevated BNP, no chest pain, no shortness of breath, no complaint of lower extreme edema, will avoid fluids given elevated BNP Chronic hypotension, continue midodrine, We will avoid fluid therapy UTI continue Rocephin Full code Continue Eliquis, for history of atrial fibrillation History of CAD, continue Plavix, serial EKGs, serial troponins History of GI bleed, monitor hemoglobin Attestations Medical Necessity Statement*: Patient requires hospitalization for dry gangrene with right foot second digit, with surrounding cellulitis, requiring antibiotic, surgical invention, chronic hypotension Coding Level of Care Code 55144 Moderate MDM includes number and complexity of problems actively addressed during encounter, amount and/or complexity of data reviewed/ordered and described risk of complication, morbidity or mortality of management as document ed Diagnoses Dry gangrene I96 Hypotension I95.9 Hypotension type: unspecified hypotension type Weakness R53.1 UTI (urinary tract infection) N39.0 HTN (hypertension) I10 Hypertension type: primary hypertension S/P angioplasty with stent Z95.820 EDNA (obstructive sleep apnea) G47.33 Hyperlipidemia E78.5 Hyperlipidemia type: unspecified CKD (chronic kidney disease) 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
[2023-04-27 17:13] LABS: Glucose Point of Care 77 mg/dL (70-110)
[2023-04-27] MEDS: gabapentin 300 mg Capsule 600 MG PO (17:25)
[2023-04-27 20:55] LABS: Glucose Point of Care 107 mg/dL (70-110)
[2023-04-27] MEDS: atorvastatin 40 mg Tablet PO (21:57)
[2023-04-27] MEDS: mirtazapine 30 mg Tablet PO (21:58)
[2023-04-28] VITALS (9 sets, daily range): BP systolic 91–118; BP diastolic 64–80; PULSE 54–97; RESP 13–18; TEMP 36.4–36.9; O2SAT 93–98
[2023-04-28 04:47] LABS: Basophils # 0.1 10^3/uL (0.0-0.1); Basophils % 0.9 %; Eosinophils # 0.1 10^3/uL (0.0-0.8); Eosinophils % 1.9 %; Hematocrit 33.8 % (36-47); Lymphocytes # 2.9 10^3/uL (0.8-4.8); Lymphocytes % 45.5 %; Mean Corpuscular HGB Conc 32.2 g/dL (30-55); Mean Corpuscular Hemoglobin 32.2 pg (27-33); Mean Platelet Volume 12.2 fL (7.4-10.4); Monocytes # 0.5 10^3/uL (0.2-0.9); Monocytes % 8.3 %; Neutrophils # 2.73 10^3/uL (1.8-7.7); Neutrophils % 43.1 %; Nucleated Red Blood Cells % 0 %; Platelet Count 154 10^3/cmm (157-399); Red Blood Count 3.38 10^6/uL (3.85-5.65); Red Cell Distribution Width 17.4 % (12.1-15.1); White Blood Count 6.35 10^3/uL (3.29-11.43)
[2023-04-28 04:59] LABS: Vancomycin Trough 20.5 ug/mL (10-15)
[2023-04-28 05:02] LABS: Alanine Aminotransferase 20 U/L (0-33); Albumin Level 1.7 g/dL (3.5-5.2); Alkaline Phosphatase 111 U/L (35-105); Anion Gap 10.2 (5-19); Aspartate Amino Transferase 42 U/L (0-32); Blood Urea Nitrogen 6 mg/dL (8-23); Calcium 7.6 mg/dL (8.5-10.5); Carbon Dioxide 26 mmol/L (22-29); Chloride 110 mmol/L (98-107); Creatinine Clr Calc Pharmacy 70.5375; Glomerular Filtration Rate 71.5 mL/min (90-130); Glucose 73 mg/dL (65-115); Magnesium 1.8 mg/dL (1.7-2.3); Osmolality Calculated 290 mOsm/kg (285-295); Phosphorus 2.4 mg/dL (2.5-4.5); Potassium 4.2 mmol/L (3.5-5.1); Sodium 142 mmol/L (136-145); Total Bilirubin 0.9 mg/dL (0.15-1.2); Total Protein 4.7 g/dL (6.6-8.7)
[2023-04-28] MEDS: ascorbic acid 500 mg Tablet PO (05:30)
[2023-04-28] MEDS: gabapentin 300 mg Capsule 900 MG PO (05:30)
[2023-04-28] MEDS: pantoprazole DR 40 mg Tablet PO (05:30)
[2023-04-28] MEDS: levothyroxine 112 mcg Tablet PO (05:30)
[2023-04-28 06:33] LABS: Glucose Point of Care 67 mg/dL (70-110)
--- NOTE | 2023-04-28 06:40 | PC.NURSE ---
blood glucose 67, patient alert and oriented, snack given.
[2023-04-28] MEDS: albumin 50 G/200 ML BAG 60 G IV (10:22)
[2023-04-28] MEDS: midodrine 5 mg TABLET 10 MG PO ×3 (10:34→21:54)
[2023-04-28] MEDS: magnesium lactate 84 mg Tablet PO (10:35)
[2023-04-28] MEDS: vancomycin 1,250 MG/250 ML PIGGYBACK 250 MG IV (11:08)
[2023-04-28 11:54] LABS: Glucose Point of Care 77 mg/dL (70-110)
--- NOTE | 2023-04-28 12:01 | P.PN_ITS ---
Subjective Subjective: Patient seen bedside this morning. Denies any acute events overnight. Vitals/I&O/Wt Last Vital Signs Temp 98.1 F 04/28/23 12:00 Pulse 86 04/28/23 12:00 Resp 17 04/28/23 12:00 BP 107/71 04/28/23 12:00 Pulse Ox 93 04/28/23 12:00 O2 Del Method Nasal Cannula 04/28/23 12:00 O2 Flow Rate 2 04/28/23 07:18 04/27/23 04/28/23 04/28/23 23:59 06:59 14:59 Intake Total 168 / 168 Output Total Balance 168 / 168 Physical Exam Narrative: GENERAL: Patient is alert and oriented ?3 and in no acute distress. The following is a focused bilateral lower extremity exam. VASCULAR: Dorsalis pedis palpable bilaterally. Posterior tibial arteries palpab le. Capillary refill time less than 5 seconds to the distal hallux bilaterally. Calf is supple and nontender proximally and distally. Decreased pedal hair bilaterally, +1 pitting to the right lower extremity. NEUROLOGICAL: Protective sensation diminished to the lower extremities. DERMATOLOGICAL: Stable dry gangrene to the right second toe without purulence, no proximal lymphangitic streaking, dependent rubor to the right forefoot localized at the base of the right second toe. There is no increase in skin temperature at the right forefoot compared to the contralateral limb. MUSCULOSKELETAL: No pain with posterior calf squeeze bilaterally. Muscle strength +5 in all 3 planes bilateral foot and ankle. 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 X-ray right foot 3 views negative for acute bony abnormality, no soft tissue emphysema and no foreign body to the right foot. Venous duplex negative for deep vein thrombosis TREMAYNE/TBI and PVR performed 04/25/2023. No significant arterial obstruction found, TREMAYNE to the right one-point is 1.0, left 1.1. Betadine wet-to-dry right second toe wound. Patient scheduled for right second toe amputation 04/29/2023 at 7:00 AM. Attestations Medical Necessity Statement*: Gangrene right second toe Coding Level of Care Code Acute Code for [facility] Diagnoses Dry gangrene I96 Necrosis of toe I96 Type 2 diabetes mellitus with diabetic nephropathy E11.21
--- NOTE | 2023-04-28 12:45 | P.PN_ITS ---
Subjective Subjective: Patient was seen this morning, she has no complaints this morning, she is awaiting surgery tomorrow, no leg pains, dizziness, no nausea, vomiting, no chest pain Vitals/I&O/Wt Last Vital Signs Temp 98.1 F 04/28/23 12:00 Pulse 86 04/28/23 12:00 Resp 17 04/28/23 12:00 BP 107/71 04/28/23 12:00 Pulse Ox 93 04/28/23 12:00 O2 Del Method Nasal Cannula 04/28/23 12:00 O2 Flow Rate 2 04/28/23 07:18 04/27/23 04/28/23 04/28/23 23:59 06:59 14:59 Intake Total 418 / 418 Output Total Balance 418 / 418 Physical Exam Const: COMMON NORMALS: no acute distress and patient oriented x3 Resp: COMMON NORMALS: normal respiratory effort, No retractions, No use of accessory muscles and clear to auscultation bilaterally AUSCULTATION: clear to auscultation bilaterally Cardio: COMMON NORMALS: regular rate, regular rhythm, S1 normal heart sound present and S2 normal heart sound present RATE: regular rate RHYTHM: regular rhythm HEART SOUNDS: S1 normal heart sound present and S2 normal heart sound present GI: COMMON NORMALS: Normal to inspection, nondistended, normoactive bowel sounds present and non-tender Extremity: COMMON NORMALS: no pedal edema Neuro: COMMON NORMALS: patient oriented x3 Psych: COMMON NORMALS: mental status grossly normal Data 04/28/23 03:53 04/28/23 03:53 Micro: Microbiology 04/25/23 14:36 Urine Culture - Final Urine,Clean Catch A&P Assessment and plan (1) Dry gangrene: (2) Hypotension: Qualifiers: Hypotension type: unspecified hypotension type Qualified Code(s): I95.9 - Hypotension, unspecified (3) Weakness: (4) UTI (urinary tract infection): (5) HTN (hypertension): Qualifiers: Hypertension type: primary hypertension Qualified Code(s): I10 - Es sential (primary) hypertension (6) S/P angioplasty with stent: (7) EDNA (obstructive sleep apnea): (8) Hyperlipidemia: Qualifiers: Hyperlipidemia type: unspecified Qualified Code(s): E78.5 - Hyperlipidemia, unspecified (9) CKD (chronic kidney disease): (10) Diabetes 1.5, managed as type 2: (11) ASHD (arteriosclerotic heart disease): (12) CHF (congestive heart failure): Qualifiers: Heart failure type: unspecified Heart failure chronicity: acute on chronic Qualified Code(s): I50.9 - Heart failure, unspecified Plan Dry gangrene, right foot, second digit -Podiatry has been consulted by ER -Continue with vancomycin due to surrounding erythema and is on Rocephin for UTI ? Arterial ultrasound ?CONCLUSIONS ?Minimal to moderate diffuse plaques bilaterally in the iliac and ?femoral arteries ?Normal resting ABIs bilaterally ?No significant arterial obstruction, based on the above findings -npo midnight, plan on surgery tommorow Persistent hypotension -Has chronic history of hypotension -coutinue midodrine to 10 3 times daily -Monitor in the hospital, orthostatic vitals Right lower extremity swelling, venous ultrasound negative for DVT Transaminitis, with elevated bilirubin, no abdominal pain complaints, elevated alk phos, CT scan abdomen pelvis without contrast no acute findings Elevated BNP, no chest pain, no shortness of breath, no complaint of lower extreme edema, will avoid fluids given elevated BNP Chronic hypotension, continue midodrine, We will avoid fluid therapy UTI continue Rocephin Full code Continue Eliquis, for history of atrial fibrillation History of CAD, continue Plavix, serial EKGs, serial troponins History of GI bleed, monitor hemoglobin plavix, and eliquis is on hold Attestations 2 Medical Necessity Statement*: Patient requires hospitalization for dry gangrene, right foot, history of surgical invention Diagnoses Dry gangrene I96 Hypotension I95.9 Hypotension type: unspecified hypotension type Weakness R53.1 UTI (urinary tract infection) N39.0 HTN (hypertension) I10 Hypertension type: primary hypertension S/P angioplasty with stent Z95.820 EDAN (obstructive sleep apnea) G47.33 Hyperlipidemia E78.5 Hyperlipidemia type: unspecified CKD (chronic kidney disease) 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
[2023-04-28] MEDS: cefTRIAXone 1,000 MG in sodium chloride 0.9% (plus) 50 ML 100 MG IV (14:58)
[2023-04-28] MEDS: gabapentin 300 mg Capsule 600 MG PO (17:13)
[2023-04-28] MEDS: tizanidine 4 mg Tablet PO (17:14)
[2023-04-28] MEDS: TRAMadol 50 mg Tablet PO (17:14)
[2023-04-28 17:23] LABS: Glucose Point of Care 77 mg/dL (70-110)
[2023-04-28 21:30] LABS: Glucose Point of Care 112 mg/dL (70-110)
[2023-04-28] MEDS: atorvastatin 40 mg Tablet PO (21:54)
[2023-04-28] MEDS: mirtazapine 30 mg Tablet PO (21:56)
[2023-04-29] VITALS (13 sets, daily range): BP systolic 86–117; BP diastolic 52–83; PULSE 64–85; RESP 14–18; TEMP 36.1–36.8; O2SAT 94–100
[2023-04-29 03:14] LABS: Basophils # 0.1 10^3/uL (0.0-0.1); Basophils % 0.8 %; Eosinophils # 0.1 10^3/uL (0.0-0.8); Eosinophils % 2.2 %; Hematocrit 30.7 % (36-47); Lymphocytes # 2.6 10^3/uL (0.8-4.8); Lymphocytes % 44.5 %; Mean Corpuscular HGB Conc 31.6 g/dL (30-55); Mean Corpuscular Hemoglobin 32.3 pg (27-33); Mean Corpuscular Volume 102.3 fl (85-98); Monocytes # 0.5 10^3/uL (0.2-0.9); Neutrophils # 2.55 10^3/uL (1.8-7.7); Neutrophils % 43.2 %; Nucleated Red Blood Cells % 0 %; Platelet Count 142 10^3/cmm (157-399); Red Cell Distribution Width 17.2 % (12.1-15.1); White Blood Count 5.91 10^3/uL (3.29-11.43)
[2023-04-29 03:38] LABS: Alanine Aminotransferase 15 U/L (0-33); Albumin Level 2.3 g/dL (3.5-5.2); Alkaline Phosphatase 84 U/L (35-105); Anion Gap 9.9 (5-19); Aspartate Amino Transferase 38 U/L (0-32); Blood Urea Nitrogen 6 mg/dL (8-23); Calcium 7.5 mg/dL (8.5-10.5); Carbon Dioxide 27 mmol/L (22-29); Chloride 110 mmol/L (98-107); Creatinine Clr Calc Pharmacy 70.5375; Globulin 2.3 g/dL (1.3-4.6); Glomerular Filtration Rate 83.5 mL/min (90-130); Glucose 64 mg/dL (65-115); Magnesium 1.8 mg/dL (1.7-2.3); Osmolality Calculated 292 mOsm/kg (285-295); Phosphorus 2.2 mg/dL (2.5-4.5); Potassium 3.9 mmol/L (3.5-5.1); Sodium 143 mmol/L (136-145); Total Bilirubin 0.8 mg/dL (0.15-1.2); Total Protein 4.6 g/dL (6.6-8.7)
[2023-04-29] MEDS: gabapentin 300 mg Capsule 900 MG PO (05:47)
[2023-04-29] MEDS: ascorbic acid 500 mg Tablet PO (05:47)
[2023-04-29] MEDS: levothyroxine 112 mcg Tablet PO (05:48)
[2023-04-29] MEDS: pantoprazole DR 40 mg Tablet PO (05:48)
--- NOTE | 2023-04-29 06:09 | P.HPUD_ITS ---
Surgery/Procedure H&P Update DATE OF PROCEDURE: April 29, 2023 DATE H&P PERFORMED: 04/25/23 H&P UPDATE INFORMATION: I have reviewed H&P completed within last 30 days, I have examined patient prior to procedure, No changes to prior documentation and H&P is in [facility] [place] on date indicated PREOP DIAGNOSIS: Dry gangrene right second toe PRIMARY INDICATION FOR PROCEDURE: Gangrene right second toe PLANNED PROCEDURE: Operation Date: 04/29/23 07:20 Proposed Procedures p Amputation Toe/s(Right) - Dell Hubbard DPM
[2023-04-29] MEDS: vancomycin 1,250 MG/250 ML PIGGYBACK 250 MG IV (06:10)
[2023-04-29 06:16] LABS: Glucose Point of Care 67 mg/dL (70-110)
--- NOTE | 2023-04-29 06:36 | PM.OP ---
Operative Report Date of procedure: April 29, 2023 Pre-op diagnosis: Gangrene right second toe Post-op diagnosis: Gangrene right second toe Post-op findings: Gangrene right second toe Procedure done: Right second toe amputation. CPT code 56962 Implants: 4-0 Vicryl, 4-0 nylon. Specimens removed/disposition: Soft tissue cultures right second toe sent to microbiology Pathology: Right second toe sent to pathology for gross Surgeon: Dell Hubbard DPM [employer] Machine Operator: KIAN Estimated blood loss: 5 9 IV fluids: 0 Urine output: 0 Complications: None Findings: Gangrene right second toe Brief History: Patient her own toenails and accidentally cut her right second toe, bled for several days so she wrapped her right second toe tightly, left the tight dressing on for too long and saw her toe turning black. She has dry stable gangrene. Vascular study shows no arterial obstruction. Recommend right second toe amputation. She understands that there are risks of delayed healing, nonhealing, dehiscence and potential need for higher level of amputation. Procedure: Under mild sedation the patient was brought to the operating room and remained on the gurney in supine position. A timeout was performed. Anesthesia was then administered by the anesthesia service. Local anesthesia was injected by myself consisting of 20 cc of 1% lidocaine plain in a right second ray block fashion. Well-padded pneumatic tourniquet was applied to the right ankle. The right lower extremity was scrubbed, prepped and draped utilizing normal aseptic technique. Right foot was elevated and the right tourniquet was inflated to 250 mmHg. Attention was directed to the right second toe which was noted to have dry gangrene changes, the right second toe distal two thirds was black with hard eschar. The base of the right second toe had viable skin. A vertical incision was performed semielliptical and converging at the right second metatarsal phalangeal joint and the right second toe was disarticulated sharply and passed from the operative field. Soft tissue culture sent to microbiology and the remaining right second toe sent to pathology for gross. The incision was irrigated with copious amounts of Staticin solution. The head of the second metatarsal was directly visualized and noted to be viable color and density. Bleeding skin edges appreciated at the level of the amputation. The incision was then irrigated with copious amounts of sterile skin solution and closed in a layered fashion. Subcutaneous tissue was closed with 4-0 Vicryl and skin with 4-0 nylon. Incision was then dressed with Adaptic, sterile 4 x 4's, Kerlix and Surya wrap. Postop shoe was applied. Tourniquet was deflated and a prompt hyperemic response was noted to the remaining digits of the right foot. Patient tolerated the procedure and anesthesia well and was transferred to the PACU with vital signs stable and vascular status intact. Following a period of postoperative monitoring she will be transferred back to the floor.
--- NOTE | 2023-04-29 06:44 | PC.NURSE ---
Bedside report given to surgery RN Justine, this nurse informed her that patient's morning glucose was 67, she said they would treat this in surgery with dextrose fluids. patient is alert and oriented. Patient ambulated to the [facility] and was transferred off the floor to surgery.
[2023-04-29] MEDS: dextrose 5% 1,000 ML 30 ML IV (06:48)
[2023-04-29] MEDS: lidocaine 2% INJ 20 mL 14 ML INJECTION (07:09)
--- NOTE | 2023-04-29 07:59 | PC.SOCIAL ---
IMM Update IMM not updated, pt is in Observation at this time.
[2023-04-29 08:08] LABS: Glucose Point of Care 165 mg/dL (70-110)
--- NOTE | 2023-04-29 08:34 | P.ANESASSM_ITS ---
Pre-Anesthetic Assessment Height/Weight: Height 1.63 m Weight 81.647 kg Temp Pulse Resp BP Pulse Ox O2 Del Method O2 Flow Rate 97.0 F L 75 16 107/72 99 Nasal Cannula 2 04/29/23 07:53 04/29/23 07:53 04/29/23 07:53 04/29/23 07:53 04/29/23 07:53 04/29/23 07:53 04/29/23 07:53 Preop Diagnosis: Dry gangrene right second toe Operation Date: 04/29/23 07:00 Proposed Procedures p Amputation Toe/s(Right) - Dell Hubbard DPM Familial anesthetic complications: noen Was Beta Karen taken within 24 hours: N/A Was Clonidine taken within 24 hours: N/A Social Tobacco and No alcohol Exam alert, oriented x 3 and regular rate & rhythm Airway Submandibular: within normal limits Cervical ROM: within normal limits Mallampati: Class II Dentition: false Pulmonary Chronic Obstructive Pulmonary Disease and Sleep Apnea Home O2 3L CV/HEM Anemia, Congestive Heart Failure, Hypertension and Myocardial Infarction CONCLUSIONS ?The ventricle is not well seen.? The only reasonable view is the ?apical view.? In this view there appears to be normal left ?ventricular size and lower limit of normal left ventricular ?function.? There may be mild left ventricular hypertrophy.? In ?other views there is a suggestion of mild hypokinesis of the ?inferior wall though this cannot be corroborated.? A rough ?estimate of the ejection fraction is 50 to 55%.? There is grade ?2 diastolic dysfunction. ?Normal right ventricular size and systolic function. Severe ?pulmonary hypertension, RVSP 71.7 mmHg. ?Structurally normal mitral valve. Mild mitral valve ?regurgitation. ?Previous echo was performed 03/19/2021.? The only new finding on ?this study is the pulmonary hypertension.? Previous study was ?not able to detect or measure the pulmonary artery pressure due ?to an incomplete tricuspid regurgitation envelope.? Today's ?study may represent an overestimation of the pulmonary pressure ?due to the incomplete tricuspid regurgitation envelope.? ?Clinical correlation is recommended. ?Dr. Jim Lara MD ?(Electronically Signed) ?Final Date:? ? ? 29 January 2023 Chronic Renal Insufficiency GI Gastroesophageal Reflux Disease Metabolic Diabetes Mellitus, Hyperlipidemia and Morbid Obesity Neuropsych Neuropathy Anesthetic Plan ASA status: 3 Anesthesia: MAC Medications/Allergies Home Medications Medication Instructions Recorded Confirmed Last Taken Type albuterol sulfate 90 mcg/actuation 2 puff inhalation Q6H PRN 11/29/20 04/25/23 Unknown History aerosol inhaler Shortness Of Breath furosemide 40 mg tablet 40 mg PO Q48H #90 tabs 06/11/22 04/25/23 04/23/23 Rx calcitriol 0.25 mcg capsule 0.25 mcg PO .ON MON,WED,FRI 10/15/22 04/25/23 02/13/23 History apixaban 5 mg tablet (Eliquis) 5 mg PO BID #180 tabs 01/24/23 04/25/23 04/24/23 Rx clopidogrel 75 mg tablet 75 mg PO QAM 01/26/23 04/25/23 04/24/23 History lansoprazole 30 mg capsule,delayed 30 mg PO QAM 01/26/23 04/25/23 04/24/23 History release levothyroxine 112 mcg tablet 112 mcg PO QAM 01/26/23 04/25/23 04/24/23 History lidocaine-prilocaine 2.5 %-2.5 % See Rx Instructions .Route .COMPLEX 01/26/23 04/25/23 Unknown History topical cream nitroglycerin 0.4 mg sublingual 0.4 mg sublingual Q5M PRN Chest 01/26/23 04/25/23 Unknown History tablet (Nitrostat) Pain omega-3 acid ethyl esters 1 gram 3 cap PO DAILY 01/26/23 04/25/23 04/24/23 History capsule ascorbic acid (vitamin C) 500 mg 500 mg PO QAM #90 tabs 03/26/23 04/25/23 04/24/23 Rx tablet (Vitamin C) methenamine hippurate 1 gram tablet 1 g PO QAM #90 tabs 03/26/23 04/25/23 04/24/23 Rx gabapentin 300 mg capsule See Rx Instructions .Route 04/01/23 04/25/23 04/24/23 Rx .COMPLEX #150 caps tramadol 50 mg tablet 50 mg PO BID PRN Pain #60 tabs 04/10/23 04/25/23 Unknown Rx midodrine 5 mg tablet 5 mg PO TID 30 days #90 tabs 04/23/23 04/25/23 04/24/23 Rx fluticasone propionate 50 2 spray intranasal DAILY PRN 11/02/23 11/02/23 Unknown History mcg/actuation nasal Allergy Symptoms spray,suspension mirtazapine 30 mg tablet 30 mg PO BEDTIME 04/25/23 04/25/23 04/24/23 History rosuvastatin 10 mg tablet 10 mg PO BEDTIME 04/25/23 04/25/23 04/24/23 History tizanidine 4 mg tablet 4 mg PO Q6H PRN Muscle Spasm 04/25/23 04/25/23 Unknown History Allergies Allergy/AdvReac Type Severity Reaction Status Date / Time hepatitis B immune globulin Allergy Unknown Unknown Verified 04/25/23 14:35 Current Medications Generic Name Dose Route Start Last Admin Trade Name Freq PRN Reason Stop Dose Admin Apixaban 5 mg 04/25/23 19:14 04/27/23 09:39 Apixaban 5 Mg Tablet PO 5 mg BID CICI Administration Ascorbic Acid 500 mg 04/26/23 06:00 04/29/23 05:47 Ascorbic Acid 500 Mg Tablet PO 500 mg QAM CICI Administration Atorvastatin Calcium 40 mg 04/25/23 21:00 04/28/23 21:54 Atorvastatin 40 Mg Tablet PO 40 mg BEDTIME CICI Administration Calcitriol 0.25 mcg 04/26/23 09:00 04/26/23 09:01 Calcitriol 0.25 Mcg Capsule PO 0.25 mcg [id number] CICI Administration Clopidogrel Bisulfate 75 mg 04/26/23 06:00 04/27/23 05:36 Clopidogrel 75 Mg Tablet PO 75 mg QAM CICI Administration Gabapentin 900 mg 04/26/23 06:00 04/29/23 05:47 Gabapentin 300 Mg Capsule PO 900 mg QAM [facility]I Administration Gabapentin 600 mg 04/26/23 18:00 04/28/23 17:13 Gabapentin 300 Mg Capsule PO 600 mg QPM [facility] Administration Ceftriaxone Sodium 1,000 mg/ 50 mls @ 100 mls/hr 04/26/23 15:00 04/28/23 15:37 Sodium Chloride IV Infused Q24H [facility] Infusion Protocol Vancomycin/PEG/NADA/Lysine/Water 1,250 mg in 250 mls @ 250 mls/hr 04/28/23 11:00 04/29/23 06:10 Vancocin IV 250 mls/hr Q18H [facility] Administration Dextrose 1,000 mls @ 30 mls/hr 04/29/23 06:45 04/29/23 06:48 D5w IV 30 mls/hr .Q24H [facility]I Administration Insulin Human Lispro 0 unit 04/25/23 19:14 04/28/23 17:10 Insulin Lispro 100 Unit/1 Ml SUBCUT Not Given [facility] Protocol Levothyroxine Sodium 112 mcg 04/26/23 06:00 04/29/23 05:48 Levothyroxine 112 Mcg Tablet PO 112 mcg QAM [facility] Administration Magnesium Lactate 84 mg 04/26/23 09:00 04/28/23 10:35 Magnesium Lactate 84 Mg Tablet PO 84 mg DAILY CICI Administration Midodrine 10 mg 04/26/23 15:00 04/28/23 21:54 Midodrine 5 Mg Tablet PO 10 mg TID [facility] Administration Mirtazapine 30 mg 04/25/23 21:00 04/28/23 21:56 Mirtazapine 30 Mg Tablet PO 30 mg BEDTIME [facility]I Administration Non-Formulary Medication 1 gm 04/26/23 06:00 04/29/23 05:48 Methenamine Hippurate PO Not Given QAM C[facility]I [id number] Ethyl Esters 3 mg 04/26/23 09:00 04/28/23 11:07 [place]-3 Fatty Acids 1,000 Mg Capsule PO Not Given DAILY CICI Pantoprazole Sodium 40 mg 04/26/23 06:00 04/29/23 05:[address] 40 Mg Tablet PO 40 mg QAM [facility] Administration Tizanidine HCl 4 mg 04/25/23 19:14 04/28/23 17:14 Tizanidine 4 Mg Tablet PO 4 mg Q6H PRN Administration Muscle Spasm Tramadol HCl 50 mg 04/25/23 19:14 04/28/23 17:14 Tramadol 50 Mg Tablet PO 50 mg BID PRN Administration Pain PFSH Anesthesia Medical History ASHD (arteriosclerotic heart disease) CHF (congestive heart failure) Chronic kidney disease Chronic rhinosinusitis CKD (chronic kidney disease) COPD (chronic obstructive pulmonary disease) Coronary artery disease 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, managed as type 2 Diabetic neuropathy Diabetic peripheral neuropathy associated with type 2 diabetes mellitus Fall with injury Family history of colon cancer requiring screening colonoscopy GERD (gastroesophageal reflux disease) Head injury due to trauma HTN (hypertension) Hyperlipidemia Hypotension Insomnia Myocardial infarction Neck injury Nonscarring hair loss Obesity EDNA (obstructive sleep apnea) Pain associated with defecation Recurrent UTI Renal calculus, left treated with ESWL with resolution S/P extracorporeal shock wave therapy Secondary hyperparathyroidism of renal origin Tobacco abuse Urolithiasis Surgical History H/O bariatric surgery S/P angioplasty with stent Family History Mother , at age 86 CAD (coronary artery disease) Diabetes Myocardial infarction Hypertension Father , AGE 72 Diabetes CAD (coronary artery disease) Cancer LUNG Brother Diabetes CAD (coronary artery disease) Hypertension Sister Diabetes Social History Smoking and tobacco/nicotine status: current every day tobacco/nicotine user cigarettes Alcohol intake: never Adopted: No Caregiver/support person: No Marital status: Legally Current occupational status: retired and disabled Current gender identity: Female Female Reproductive History Spontaneous abortions: No Data Anesthesia 04/29/23 02:09 04/29/23 02:09 Short CBC 04/28/23 04/29/23 Range/Units 03:53 02:09 WBC 6.35 5.91 (3.29-11.43) 10^3/uL Hgb 10.90 L 9.70 L (11.27-16.99) g/dL Hct 33.8 L 30.7 L (36-47) % MCV 100.0 H 102.3 H (85-98) fl Plt Count 154 L 142 L (157-399) 10^3/cmm Neut % (Auto) 43.1 43.2 % Neut # (Auto) 2.73 2.55 (1.8-7.7) 10^3/uL BMP 04/28/23 04/29/23 03:53 02:09 Sodium 142 143 Potassium 4.2 3.9 Chloride 110 H 110 H Carbon Dioxide 26 27 BUN 6 L 6 L Creatinine 0.8 0.7 Glucose 73 64 L Calcium 7.6 L 7.5 L Liver Function 04/28/23 04/29/23 Range/Units 03:53 02:09 Total Bilirubin 0.9 0.8 (0.15-1.2) mg/dL AST 42 H 38 H (0-32) U/L ALT 20 15 (0-33) U/L Alkaline Phosphatase 111 H 84 (35-105) U/L Albumin 1.7 L 2.3 L (3.5-5.2) g/dL Cardiac Studies: Echocardiogram 01/29/23 Echocardiogram Limited Views 03/13/20 Sestamibi Stress Test (Cardiology) 01/24
[2023-04-29] MEDS: midodrine 5 mg TABLET 10 MG PO (10:27)
[2023-04-29] MEDS: magnesium lactate 84 mg Tablet PO (10:30)
[2023-04-29] MEDS: calcitriol 0.25 mcg Capsule PO (10:30)
--- NOTE | 2023-04-29 11:01 | PM.DCS ---
Discharge Providers Date of Admission: 04/25/23 19:14 Date of Discharge: April 29, 2023 Attending Provider at Admission: Danielito Reece MD Attending Provider at Discharge: Danielito Reece MD Primary Care Provider: Doug Allen DO Diagnoses at Discharge Discharge Diagnosis (1) Dry gangrene: Status: Acute (2) Hypotension: Status: Acute Qualifiers: Hypotension type: unspecified hypotension type Qualified Code(s): I95.9 - Hypotension, unspecified (3) Weakness: Status: Acute (4) UTI (urinary tract infection): Status: Acute (5) HTN (hypertension): Status: Acute Qualifiers: Hypertension type: primary hypertension Qualified Code(s): I10 - Essential (primary) hypertension (6) S/P angioplasty with stent: Status: Acute (7) EDNA (obstructive sleep apnea): Status: Acute (8) Hyperlipidemia: Status: Acute Qualifiers: Hyperlipidemia type: unspecified Qualified Code(s): E78.5 - Hyperlipidemia, unspecified (9) CKD (chronic kidney disease): Status: Acute (10) Diabetes 1.5, managed as type 2: Status: Acute (11) ASHD (arteriosclerotic heart disease): Status: Acute (12) CHF (congestive heart failure): Status: Acute Qualifiers: Heart failure chronicity: acute on chronic Heart failure type: unspecified Qualified Code(s): I50.9 - Heart failure, unspecified Reason for Visit Reason for Visit: second toe right foot black Hospital Course Hospital Course Peri Cid is a 67 year old female with a past medical history of syncope, history of chronic hypotension on midodrine, history of chronic GI bleed, on anticoagulation Eliquis, history of chronic UTIs, history of right ankle fracture, hyperlipidemia, type 2 diabetes mellitus, B12 deficiency, history of CHF, who presents [facility] adds she was cutting her toenails, on her right foot, second digit, and it bled for 8 days, now her right toe is black, she has no sensation in her toe, she denies any chest pain, no palpitations, no shortness of breath, no abdominal pain, no lightheadedness, no dizziness, her blood pressures were been noted to be low in the emergency room she was given fluids but she tells me that her blood pressures are always low, she was taken off her midodrine for some period of time, but is now back on it, denies any chest pain, palpitations, shortness of breath, no abdominal pain, no lightheadedness, dizziness, no diarrhea, she does report that she just came off antibiotics for UTI,, This is a 67-year-old female who presents to [facility] for dry gangrene, of the right foot, second digit with surrounding cellulitis, podiatry was consulted, managed with antibiotic therapy, ABIs showed minimal to moderate diffuse plaques bilaterally in the iliac and femoral arteries, normal resting ABIs bilaterally, no significant arterial obstruction, patient received right second toe amputation, will be discharged with antibiotic therapy close follow-up with Dr. Hubbard as outpatient. Patient has a history of chronic hypotension, she had persistent hypotension during her hospitalization, managed with fluid therapy then managed with midodrine, her midodrine dose home dose, was increased to 10 mg 3 times daily, no lightheadedness, dizziness no syncopal episodes. Continue midodrine 10 mg 3 times daily at home, follow-up with primary care provider as outpatient Physical Exam Const: COMMON NORMALS: no acute distress and patient oriented x3 Resp: COMMON NORMALS: normal respiratory effort, No retractions, No use of accessory muscles and clear to auscultation bilaterally AUSCULTATION: clear to auscultation bilaterally Cardio: COMMON NORMALS: regular rate, regular rhythm, S1 normal heart sound present and S2 normal heart sound present RATE: regular rate RHYTHM: regular rhythm HEART SOUNDS: S1 normal heart sound present and S2 normal heart sound present GI: COMMON NORMALS: Normal to inspection, nondistended, normoactive bowel sounds present and non-tender Extremity: COMMON NORMALS: no pedal edema Neuro: COMMON NORMALS: patient oriented x3 Psych: COMMON NORMALS: mental status grossly normal Skin: NARRATIVE SKIN EXAM: Surgical site, wrapped Discharge Data Studies Completed and Pending Completed Studies During Hospitalization Category Date Time Status CT abdomen pelvis wo con [id number] Stat Cat Scan 04/25/23 15:42 Completed XR chest 1V [id number] Stat Exams 04/25/23 13:46 Completed XR foot RT min 3V* [id number] Stat Exams 04/25/23 14:43 Completed US arterial duplex lower extremity bilat [CV arterial Ultrasound 04/25/23 17:28 [place] [id number]] Stat US venous duplex lower extremity RT [CV venous duplex Ultrasound 04/25/23 15:[place] [id number]] Stat Pending at discharge Category Date Time Status Blood Culture Stat Lab 04/25/23 14:08 Results Complete Blood Count w/Auto AM LABS Lab 04/30/23 04:00 Ordered Complete Blood Count w/Auto AM LABS Lab 05/01/23 04:00 Ordered Comprehensive Metabolic Panel AM LABS Lab 04/30/23 04:00 Ordered Comprehensive Metabolic Panel AM LABS Lab 05/01/23 04:00 Ordered Magnesium AM LABS Lab 04/30/23 04:00 Ordered Magnesium AM LABS Lab 05/01/23 04:00 Ordered Phosphorus AM LABS Lab 04/30/23 04:00 Ordered Phosphorus AM LABS Lab 05/01/23 04:00 Ordered Tissue Culture and Gram Stain Routine Lab 04/29/23 07:23 Received Pathology: Surgical [PTH] Routine Pth 04/29/23 07:50 Received Radiology Impressions Chest X-Ray 04/25/23 13:46 IMPRESSION: No acute findings. Foot X-Ray 04/25/23 14:43 IMPRESSION: No acute findings. Abdomen/Pelvis CT 04/25/23 15:42 IMPRESSION: 1. 4.5 cm hematoma in the inferior left abdominal rectus muscle. 2. Diffuse fatty infiltration of the liver. 3. Mild ascites. 4. Mild body wall edema. 5. Cholelithiasis. Venous Duplex 04/25/23 15:42 IMPRESSION: No evidence of deep vein thrombosis. Laboratory Results WBC 5.91 10^3/uL (3.29-11.43) 04/29/23 02:09 RBC 3.00 10^6/uL (3.85-5.65) L 04/29/23 02:09 Hgb 9.70 g/dL (11.27-16.99) L 04/29/23 02:09 Hct 30.7 % (36-47) L 04/29/23 02:09 MCV 102.3 fl (85-98) H 04/29/23 02:09 MCH 32.3 pg (27-33) 04/29/23 02:09 MCHC 31.6 g/dL (30-55) 04/29/23 02:09 RDW 17.2 % (12.1-15.1) H 04/29/23 02:09 Plt Count 142 10^3/cmm (157-399) L 04/29/23 02:09 MPV 12.0 fL (7.4-10.4) H 04/29/23 02:09 Neut % (Auto) 43.2 % 04/29/23 02:09 Lymph % (Auto) 44.5 % 04/29/23 02:09 Wheeler % (Auto) 9.0 % 04/29/23 02:09 Eos % (Auto) 2.2 % 04/29/23 02:09 Baso % (Auto) 0.8 % 04/29/23 02:09 Neut # (Auto) 2.55 10^3/uL (1.8-7.7) 04/29/23 02:09 Lymph # (Auto) 2.6 10^3/uL (0.8-4.8) 04/29/23 02:09 Wheeler # (Auto) 0.5 10^3/uL (0.2-0.9) 04/29/23 02:09 Eos # (Auto) 0.1 10^3/uL (0.0-0.8) 04/29/23 02:09 Baso # (Auto) 0.1 10^3/uL (0.0-0.1) 04/29/23 02:09 Nucleated RBC % (auto) 0 % 04/29/23 02:09 Nucleated RBCs # 0.0 /100WBC 04/29/23 02:09 ESR 8 mm/hr (0-15) 04/25/23 14:08 Sodium 143 mmol/L (136-145) 04/29/23 02:09 Potassium 3.9 mmol/L (3.5-5.1) 04/29/23 02:09 Chloride 110 mmol/L (98-107) H 04/29/23 02:09 Carbon Dioxide 27 mmol/L (22-29) 04/29/23 02:09 Anion Gap 9.9 (5-19) 04/29/23 02:09 BUN 6 mg/dL (8-23) L 04/29/23 02:09 Creatinine 0.7 mg/dL (0.5-0.9) 04/29/23 02:09 GFR Calculation 83.5 mL/min (90-130) L 04/29/23 02:09 Glucose 64 mg/dL (65-115) L 04/29/23 02:09 POC Glucose 165 mg/dL (70-110) H 04/29/23 07:52 Calculated Osmolality 292 mOsm/kg (285-295) 04/29/23 02:09 Lactic Acid 1.2 mmol/L (0.5-2.2) 04/25/23 14:08 Calcium 7.5 mg/dL (8.5-10.5) L 04/29/23 02:09 Phosphorus 2.2 mg/dL (2.5-4.5) L 04/29/23 02:09 Magnesium 1.8 mg/dL (1.7-2.3) 04/29/23 02:09 Total Bilirubin 0.8 mg/dL (0.15-1.2) 04/29/23 02:09 GGT 67 U/L (5-36) H 04/25/23 14:08 AST 38 U/L (0-32) H 04/29/23 02:09 ALT 15 U/L (0-33) 04/29/23 02:09 Alkaline Phosphatase 84 U/L (35-105) 04/29/23 02:09 C-Reactive Protein 14.9 mg/L (0.0-4.9) H 04/25/23 14:08 NT-Pro-B Natriuret Pep 5274 pg/mL (0-125) H 04/26/23 05:11 Total Protein 4.6 g/dL (6.6-8.7) L 04/29/23 02:09 Albumin 2.3 g/dL (3.5-5.2) L 04/29/23 02:09 Globulin 2.3 g/dL (1.3-4.6) 04/29/23 02:09 Lipase 8 U/L (13-60) L 04/25/23 14:08 Procalcitonin 0.21 ng/mL (0-0.5) 04/25/23 14:08 TSH 2.51 uIU/mL (0.27-4.20) 04/25/23 14:08 Urine Color Yellow (Yellow) 04/25/23 14:36 Urine Appearance Cloudy (CLEAR) A 04/25/23 14:36 Urine pH 6.5 (5-7) 04/25/23 14:36 Ur Specific [place]vell 1.015 (1.005-1.030) 04/25/23 14:36 Urine Protein 1+ (Negative) H 04/25/23 14:36 Urine Glucose (UA) Norm (Normal) 04/25/23 14:36 Urine Ketones 2+ (Negative) H 04/25/23 14:36 Urine Blood 2+ (Negative) H 04/25/23 14:36 Urine Nitrate Positive (Negative) H 04/25/23 14:36 Urine Bilirubin 1+ (Negative) H 04/25/23 14:36 Urine Urobilinogen 4+ mg/dL (Negative) H 04/25/23 14:36 Ur Leukocyte Esterase 2+ (Negative) H 04/25/23 14:36 Urine RBC 10-15 /hpf (0-2) H 04/25/23 14:36 Urine WBC Too numerous to cnt /hpf (0-5) H 04/25/23 14:36 Ur Squamous Epith Cells 5-10 /hpf (0-5) H 04/25/23 14:36 Calcium Oxalate Crystal 10-15 /hpf H 04/25/23 14:36 Amorphous Sediment Trace /hpf 04/25/23 14:36 Urine Bacteria 2+ /hpf (NONE) H 04/25/23 14:36 Hyaline Casts 0-4 /lpf H 04/25/23 14:36 Urine Mucus 4+ /hpf 04/25/23 14:36 Vancomycin Trough 20.5 ug/mL (10-15) H 04/28/23 03:53 Vitals Last Vital Signs Temp 97.8 F 04/29/23 09:00 Pulse 85 04/29/23 09:00 Resp 16 04/29/23 09:00 BP 117/70 04/29/23 09:00 Pulse Ox 97 04/29/23 09:00 O2 Del Method Nasal Cannula 04/29/23 09:00 O2 Flow Rate 2 04/29/23 08:00 Discharge Plan Discharge Patient Disposition: Home Condition: Stable Prescriptions: New midodrine 10 mg tablet 10 mg PO TID 30 Days Qty: 90 0RF doxycycline hyclate 100 mg tablet 100 mg PO BID 5 Days Qty: 10 0RF amoxicillin-pot clavulanate 875-125 mg tablet 1 tab PO BID 5 Days Qty: 10 0RF Continued albuterol sulfate 90 mcg/actuation HFA aerosol inhaler 2 puff inhalation Q6H PRN (Reason: Shortness Of Breath) methenamine hippurate 1 gram tablet 1 g PO QAM Qty: 90 3RF ascorbic acid (vitamin C) [Vitamin C] 500 mg tablet 500 mg PO QAM Qty: 90 3RF Rx Instructions: TAKE WITH METHENAMINE furosemide 40 mg tablet 40 mg PO Q48H Qty: 90 1RF Eliquis 5 mg tablet 5 mg PO BID Qty: 180 3RF gabapentin 300 mg capsule See Rx Instructions .ROUTE .COMPLEX Qty: 150 5RF Rx Instructions: 900mg po qam and 600mg po qpm tramadol 50 mg tablet 50 mg PO BID PRN (Reason: Pain) Qty: 60 2RF calcitriol 0.25 mcg capsule 0.25 mcg PO .ON MON,WED,FRI clopidogrel 75 mg tablet 75 mg PO QAM lidocaine-prilocaine 2.5-2.5 % cream See Rx Instructions .ROUTE .COMPLEX Rx Instructions: APPLY 2-3 GRAMS TOPICALLY TO AFFECTED AREA 3-4 TIMES PER DAY NEEDED lansoprazole 30 mg capsule,delayed release(DR/EC) 30 mg PO QAM nitroglycerin [Nitrostat] 0.4 mg Tablet, Sublingual 0.4 mg SUBLINGUAL Q5M PRN (Reason: Chest Pain) Rx Instructions: do not exceed 3 doses per episode levothyroxine 112 mcg tablet 112 mcg PO QAM omega-3 acid ethyl esters 1 gram capsule 3 cap PO DAILY tizanidine 4 mg tablet 4 mg PO Q6H PRN (Reason: Muscle Spasm) mirtazapine 30 mg tablet 30 mg PO BEDTIME fluticasone propionate 50 mcg/actuation spray,suspension 2 spray intranasal DAILY PRN (Reason: Allergy Symptoms) rosuvastatin 10 mg tablet 10 mg PO BEDTIME Discontinued midodrine 5 mg tablet 5 mg PO TID 30 Days Qty: 90 2RF Discharge Orders: Discharge Order (Routine); Ordered 04/29/23 Ordered By: Danielito Reece Referrals: Doug Allen DO [Primary Care Provider] - 05/06/23 10:00 am () Dell Hubbard DPM [Physician] - 05/02/23 9:15 am () Discharge Diet: Cardiac Discharge Activity: Resume usual activity Patient Instructions: Doxycycline (By mouth), Amoxicillin/Clavulanate Potassium (By mouth), Midodrine (By mouth), Toe Amputation (DC), Opioid Safety Activity Restrictions/Additional Instructions: Instructions from Dr. Hubbard: -Please keep your current dressing clean, dry and intact until your follow-up visit to in podiatry clinic May 02, 2023 at 9:15 AM. -Limited activity at this time to allow healing on the right foot amputation site. Please wear postop shoe when weightbearing is required. Otherwise please elevate your right foot while resting. Discharge Attestations Time Spent in Discharge Care*: greater than 30 min Quality Metrics Clinical Quality Measures [ No reported AMI, CVA or VTE this stay] Coding Level of Care Code 25577 Total time (in minutes) for Discharge: 45 Diagnoses Dry gangrene I96 Hypotension I95.9 Hypotension type: unspecified hypotension type Weakness R53.1 UTI (urinary tract infection) N39.0 HTN (hypertension) I10 Hypertension type: primary hypertension S/P angioplasty with stent Z95.820 EDNA (obstructive sleep apnea) G47.33 Hyperlipidemia E78.5 Hyperlipidemia type: unspecified CKD (chronic kidney disease) N18.9 Diabetes 1.5, managed as type 2 E13.9 ASHD (arteriosclerotic heart disease) I25.10 CHF (congestive heart failure) I50.9 Heart failure chronicity: acute on chronic Heart failure type: unspecified
[2023-04-29 11:48] LABS: Glucose Point of Care 105 mg/dL (70-110)
--- NOTE | 2023-04-29 16:08 | ANE.PACU2 ---
Inpatient post-anesthesia follow up: Airway intact: Yes Vital signs: Temperature 98.3 F Pulse Rate 84 Respiratory Rate 16 Blood Pressure 105/74 Pulse Oximetry 94 Oxygen Delivery Me thod Nasal Cannula Oxygen Flow Rate 2 Fraction of Inspir ed Oxygen Hydration adequate: Yes Nausea and vomiting: No Pain level: 1 Mental status: Baseline
== END 2023-04-29 13:42 | disposition home or self-care (01) ==
LOC: ER 18:22 → MEDSURG 19:05
PROVIDERS: Physician Assistant; Podiatrist Foot & Ankle Surgery; Admitting Provider Family Medicine; Emergency Provider Family Medicine; PCP Family Medicine; Visit Provider Family Medicine
PROC: (CPT 28820; principal; 2023-04-29 07:00)
DX: I96 Gangrene, not elsewhere classified (principal); I95.9 Hypotension, unspecified; R53.1 Weakness; N39.0 Urinary tract infection, site not specified; Z95.820 Peripheral vascular angioplasty status with implants and grafts; G47.33 Obstructive sleep apnea (adult) (pediatric); E78.5 Hyperlipidemia, unspecified; N18.9 Chronic kidney disease, unspecified; I25.10 Atherosclerotic heart disease of native coronary artery without angina pectoris; E11.22 Type 2 diabetes mellitus with diabetic chronic kidney disease; I13.0 Hypertensive heart and chronic kidney disease with heart failure and stage 1 through stage 4 chronic kidney disease, or unspecified chronic kidney disease; I50.9 Heart failure, unspecified; Z79.01 Long term (current) use of anticoagulants; K21.9 Gastro-esophageal reflux disease without esophagitis; E66.01 Morbid (severe) obesity due to excess calories; Z68.30 Body mass index [BMI] 30.0-30.9, adult; E11.40 Type 2 diabetes mellitus with diabetic neuropathy, unspecified; E11.42 Type 2 diabetes mellitus with diabetic polyneuropathy; F17.210 Nicotine dependence, cigarettes, uncomplicated; M79.89 Other specified soft tissue disorders; R74.01 Elevation of levels of liver transaminase levels; Z79.02 Long term (current) use of antithrombotics/antiplatelets
CPT/HCPCS: 28820; 36415; 36416; 71045; 73630; 74176; 80053; 80202; 81001; 82962; 82977; 83605; 83690; 83735; 83880; 84100; 84145; 84443; 85025; 85651; 86140; 87040; 87070; 87077; 87086; 87176; 87186; 87205; 88305; 88311; 93005; 93925; 93971; 96365; 96366; 96367; 97760; 99285; G0378; J0696; J2371; J2704; J3370; J7040; J7050; J7070; L3260; P9046

== ENCOUNTER → 2023-05-02 08:53 | Outpatient (BNVA) | payer MEDICARE, MEDICAID, SELFPAY | PROVIDERS: PCP Family Medicine; Visit Provider Podiatrist Foot & Ankle Surgery | DX: E11.21 Type 2 diabetes mellitus with diabetic nephropathy (principal); L60.3 Nail dystrophy; Z98.890 Other specified postprocedural states; Z89.421 Acquired absence of other right toe(s) | CPT/HCPCS: 99024; 99214 ==

== ENCOUNTER → 2023-05-13 07:58 | Outpatient (BNVA) | payer MEDICARE, MEDICAID, SELFPAY | PROVIDERS: PCP Family Medicine; Visit Provider Podiatrist Foot & Ankle Surgery | DX: Z98.890 Other specified postprocedural states (principal); E11.21 Type 2 diabetes mellitus with diabetic nephropathy; L60.3 Nail dystrophy; S98.131A Complete traumatic amputation of one right lesser toe, initial encounter; X58.XXXA Exposure to other specified factors, initial encounter | CPT/HCPCS: 15853; 99213 ==

== ENCOUNTER 2023-05-30 10:27 | Emergency (ER) | payer MEDICARE, MEDICAID, SELFPAY ==
[2023-05-30 10:34] VITALS: BP 73/56; PULSE 90; RESP 17; TEMP 36.4; O2SAT 99; BMI 28.1
--- NOTE | 2023-05-30 10:56 | ED_ITS ---
HPI - Weakness 2 General: Chief complaint: Weakness Stated complaint: pain and sores on toes Time Seen by Provider: 05/30/23 10:38 Source: patient Mode of arrival: ambulatory History of Present Illness: 67-year-old female comes in she has some sore areas on her right foot. She previously had a gangrenous right second toe that was recently amputated. No fever sweats or chills. Associated symptoms: Denies chest pain, chills, confusion, melena, decreased appetite, diaphoresis, dysuria, easy bruising, fever(s), headache(s), myalgias, nausea, rash, short of breath, syncope or vomiting Review of Systems 2 Const: Denies: fever(s), chills or diaphoresis Card: Denies: chest pain or syncope Resp: Denies: dyspnea GI: Denies: abdominal pain, nausea, vomiting or melena : Denies: dysuria, urinary frequency or urinary urgency Musc: Denies: neck pain or back pain Skin/Breast: Denies: rash Neuro: Denies: headache(s) or confusion Romain/Lymph: Denies: easy bruising PFSH ED 2 PFSH: Medical History Neck injury Head injury due to trauma Fall with injury Hypotension Secondary hyperparathyroidism of renal origin Nonscarring hair loss Pain associated with defecation Family history of colon cancer requiring screening colonoscopy Diabetic neuropathy GERD (gastroesophageal reflux disease) Chronic rhinosinusitis Insomnia Diabetic peripheral neuropathy associated with type 2 diabetes mellitus Chronic kidney disease Cystitis cystica Coronary artery disease S/P extracorporeal shock wave therapy Renal calculus, left treated with ESWL with resolution Urolithiasis Recurrent UTI Tobacco abuse CHF (congestive heart failure) ASHD (arteriosclerotic heart disease) Diabetes 1.5, managed as type 2 CKD (chronic kidney disease) Hyperlipidemia EDNA (obstructive sleep apnea) HTN (hypertension) Obesity COPD (chronic obstructive pulmonary disease) Myocardial infarction Surgical History H/O bariatric surgery S/P angioplasty with stent Family History Mother , at age 86 CAD (coronary artery disease) Diabetes Myocardial infarction Hypertension Father , AGE 72 Diabetes CAD (coronary artery disease) Cancer LUNG Brother Diabetes CAD (coronary artery disease) Hypertension Sister Diabetes Social History Smoking and tobacco/nicotine status: current every day tobacco/nicotine user cigarettes Alcohol intake: never Adopted: No Caregiver/support person: No Marital status: Legally Current occupational status: retired and disabled Current gender identity: Female Female Reproductive History: Spontaneous abortions: No Physical Exam 2 Const: GENERAL APPEARANCE: cooperative and comfortable O RIENTATION/CONSCIOUSNESS: Yes awake, Yes oriented to person, Yes oriented to place and Yes oriented to time HENMT: COMMON NORMALS: normocephalic, atraumatic and hearing grossly normal bilaterally HEAD & SCALP: normocephalic and atraumatic Resp: COMMON NORMALS: normal respiratory effort, No retractions, No use of accessory muscles and clear to auscultation bilaterally AUSCULTATION: clear to auscultation bilaterally Cardio: COMMON NORMALS: regular rate, regular rhythm and No murmurs present (Cardio) RATE: regular rate RHYTHM: regular rhythm GI: COMMON NORMALS: Soft to palpation and No hepatosplenomegaly present A USCULTATION: Yes normoactive bowel sounds PALPATION: Yes Soft to palpation, No Tenderness to palpation present (GI), No Guarding due to palpation present (GI) and Yes No hepatosplenomegaly present Extremity: OTHER: Right second toe surgically absent there is dark eschar at the base of the toe toe at the incision point. Third and fourth toes have some mild irritation localized erythema and no drainage. Black eschar present no significant swelling at this time. Neuro: SENSORIUM/ORIENTATION: Yes oriented to person, Yes oriented to place and Yes oriented to time Skin: COMMON NORMALS: no rashes or lesions noted GENERAL SKIN EXAM: no rashes or lesions noted Course 2 Vital Signs: Vital signs: Vital Signs Temperature 97.5 F L 05/30/23 10:34 Pulse Rate 90 05/30/23 10:34 Respiratory Rate 17 05/30/23 10:34 Blood Pressure 73/56 05/30/23 10:34 Pulse Oximetry 99 05/30/23 10:34 Oxygen Delivery Me thod Room Air 05/30/23 10:34 MDM - Weakness Medical Decision Making Patient does have small early ulceration with a relatively superficial and early signs of active infection there is a eschar at the incision from the toe amputation does not look like there is any active amp infection. No subcutaneous air. Discussed with Dr. Hubbard he will see the patient tomorrow in the office Medical Records I reviewed the patient's medical records. Lab Data I reviewed the patient's lab results. 05/30/23 10:51 05/30/23 10:51 Laboratory Results WBC 10.11 10^3/uL (3.29-11.43) 05/30/23 10:51 RBC 4.13 10^6/uL (3.85-5.65) 05/30/23 10:51 Hgb 13.90 g/dL (11.27-16.99) 05/30/23 10:51 Hct 42.2 % (36-47) 05/30/23 10:51 MCV 102.2 fl (85-98) H 05/30/23 10:51 MCH 33.7 pg (27-33) H 05/30/23 10:51 MCHC 32.9 g/dL (30-55) 05/30/23 10:51 RDW 20.6 % (12.1-15.1) H 05/30/23 10:51 Plt Count 194 10^3/cmm (157-399) 05/30/23 10:51 MPV 12.8 fL (7.4-10.4) H 05/30/23 10:51 Neut % (Auto) 39.1 % 05/30/23 10:51 Lymph % (Auto) 53.1 % 05/30/23 10:51 [place] % (Auto) 5.9 % 05/30/23 10:51 Eos % (Auto) 1.1 % 05/30/23 10:51 Baso % (Auto) 0.5 % 05/30/23 10:51 Neut # (Auto) 3.95 10^3/uL (1.8-7.7) 05/30/23 10:51 Lymph # (Auto) 5.4 10^3/uL (0.8-4.8) H 05/30/23 10:51 [place] # (Auto) 0.6 10^3/uL (0.2-0.9) 05/30/23 10:51 Eos # (Auto) 0.1 10^3/uL (0.0-0.8) 05/30/23 10:51 Baso # (Auto) 0.1 10^3/uL (0.0-0.1) 05/30/23 10:51 Nucleated RBC % (auto) 0.5 % 05/30/23 10:51 Nucleated RBCs # 0.1 /100WBC 05/30/23 10:51 Sodium 141 mmol/L (136-145) 05/30/23 10:51 Potassium 3.2 mmol/L (3.5-5.1) L 05/30/23 10:51 Chloride 104 mmol/L (98-107) 05/30/23 10:51 Carbon Dioxide 22 mmol/L (22-29) 05/30/23 10:51 Anion Gap 18.2 (5-19) 05/30/23 10:51 BUN 11 mg/dL (8-23) 05/30/23 10:51 Creatinine 1.0 mg/dL (0.5-0.9) H 05/30/23 10:51 GFR Calculation 55.3 mL/min (90-130) L 05/30/23 10:51 Glucose 84 mg/dL (65-115) 05/30/23 10:51 Calculated Osmolality 291 mOsm/kg (285-295) 05/30/23 10:51 Calcium 8.5 mg/dL (8.5-10.5) 05/30/23 10:51 All radiology interpretation(s) finalized by discharge Discharge Plan Discharge Patient Disposition: Home Clinical Impression: Toe ulcer, Amputation of toe of right foot CHF (congestive heart failure) Qualifiers: Heart failure type: unspecified Heart failure chronicity: acute on chronic Q ualified Code(s): I50.9 - Heart failure, unspecified Type 2 diabetes mellitus with diabetic nephropathy Qualifiers: Diabetes mellitus nursing home insulin use: unspecified nursing home insulin use status Qualified Code(s): E11.21 - Type 2 diabetes mellitus with diabetic nephropathy Condition: Stable Prescriptions: No Action albuterol sulfate 90 mcg/actuation HFA aerosol inhaler 2 puff inhalation Q6H PRN (Reason: Shortness Of Breath) methenamine hippurate 1 gram tablet 1 g PO QAM Qty: 90 3RF ascorbic acid (vitamin C) [Vitamin C] 500 mg tablet 500 mg PO QAM Qty: 90 3RF Rx Instructions: TAKE WITH METHENAMINE tizanidine 4 mg tablet 4 mg PO Q6H PRN (Reason: Muscle Spasm) Qty: 90 3RF tramadol 50 mg tablet 50 mg PO BID PRN (Reason: Pain) Qty: 60 2RF Eliquis 5 mg tablet 5 mg PO BID Qty: 180 3RF gabapentin 300 mg capsule See Rx Instructions .ROUTE .COMPLEX Qty: 150 5RF Rx Instructions: 900mg po qam and 600mg po qpm calcitriol 0.25 mcg capsule 0.25 mcg PO .ON MON,WED,FRI clopidogrel 75 mg tablet 75 mg PO QAM lidocaine-prilocaine 2.5-2.5 % cream See Rx Instructions .ROUTE .COMPLEX Rx Instructions: APPLY 2-3 GRAMS TOPICALLY TO AFFECTED AREA 3-4 TIMES PER DAY NEEDED nitroglycerin [Nitrostat] 0.4 mg Tablet, Sublingual 0.4 mg SUBLINGUAL Q5M PRN (Reason: Chest Pain) Rx Instructions: do not exceed 3 doses per episode levothyroxine 112 mcg tablet 112 mcg PO QAM omega-3 acid ethyl esters 1 gram capsule 3 cap PO DAILY mirtazapine 30 mg tablet 30 mg PO BEDTIME fluticasone propionate 50 mcg/actuation spray,suspension 2 spray intranasal DAILY PRN (Reason: Allergy Symptoms) rosuvastatin 10 mg tablet 10 mg PO BEDTIME midodrine 10 mg tablet 10 mg PO TID furosemide 40 mg tablet 40 mg PO Q3D Discharge Orders: Discharge ED (Routine); Ordered 05/30/23 Ordered By: Howie Hernández Referrals: Doug Allen DO [Primary Care Provider] - Patient Instructions: Opioid Safety, Pain Management Activity Restrictions/Additional Instructions: Thank you for choosing [facility] for your healthcare needs today. Please realize this is an emergency room and that we are providing you with a medical screening exam and this may not be complete and all inclusive of all the testing and or work up that you may need to determine your ailment or severity of your illness. It is very important that you follow up as instructed or that you return to the Emergency Department should you have concerns or if your condition changes or worsens in any way. You were seen today for sores on the third and fourth toes of your right foot. I do not appear to be acutely infected at this time. Follow-up with Dr. Hubbard tomorrow in his office I have discussed your condition with him he is planning on seeing you tomorrow. Call his office for an appointment time. Coding Level of Care Code ED Heel Sprayer for 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
[2023-05-30 11:00] LABS: Basophils # 0.1 10^3/uL (0.0-0.1); Basophils % 0.5 %; Eosinophils # 0.1 10^3/uL (0.0-0.8); Eosinophils % 1.1 %; Hematocrit 42.2 % (36-47); Lymphocytes # 5.4 10^3/uL (0.8-4.8); Lymphocytes % 53.1 %; Mean Corpuscular HGB Conc 32.9 g/dL (30-55); Mean Corpuscular Hemoglobin 33.7 pg (27-33); Mean Corpuscular Volume 102.2 fl (85-98); Mean Platelet Volume 12.8 fL (7.4-10.4); Monocytes # 0.6 10^3/uL (0.2-0.9); Monocytes % 5.9 %; Neutrophils # 3.95 10^3/uL (1.8-7.7); Neutrophils % 39.1 %; Nucleated Red Blood Cells # 0.1 /100WBC; Nucleated Red Blood Cells % 0.5 %; Platelet Count 194 10^3/cmm (157-399); Red Blood Count 4.13 10^6/uL (3.85-5.65); Red Cell Distribution Width 20.6 % (12.1-15.1); White Blood Count 10.11 10^3/uL (3.29-11.43)
--- NOTE | 2023-05-30 11:11 | XR_ITS ---
WS: [id number] Right foot, 3 views, 05/30/2023 Clinical Data: pressure ulcers Comparison: Right foot, 04/25/2023 Findings: No new fractures or dislocations are seen. The right second toe is absent. There is loss of bone dens ity of the middle and distal phalanges of the right third through fifth toes. There is a plantar spur and a small Achilles spur. There is a stable internal fixation of a bimalleolar fracture. Impression: 1. Absence of the right second toe. 2. Loss of bone density of the middle and distal phalanges of the right third through fifth toes.
[2023-05-30 11:20] LABS: Anion Gap 18.2 (5-19); Blood Urea Nitrogen 11 mg/dL (8-23); Calcium 8.5 mg/dL (8.5-10.5); Carbon Dioxide 22 mmol/L (22-29); Chloride 104 mmol/L (98-107); Glomerular Filtration Rate 55.3 mL/min (90-130); Glucose 84 mg/dL (65-115); Osmolality Calculated 291 mOsm/kg (285-295); Potassium 3.2 mmol/L (3.5-5.1); Sodium 141 mmol/L (136-145)
[2023-05-30] MEDS: sodium chloride 0.9% 1,000 ML 999 ML IV (12:30)
== END 2023-05-30 14:31 | disposition home or self-care (01) ==
PROVIDERS: Emergency Provider Family Medicine; PCP Family Medicine
DX: L97.519 Non-pressure chronic ulcer of other part of right foot with unspecified severity (principal); Z89.421 Acquired absence of other right toe(s); E11.42 Type 2 diabetes mellitus with diabetic polyneuropathy; Z79.01 Long term (current) use of anticoagulants; Z79.02 Long term (current) use of antithrombotics/antiplatelets; F17.210 Nicotine dependence, cigarettes, uncomplicated; I13.0 Hypertensive heart and chronic kidney disease with heart failure and stage 1 through stage 4 chronic kidney disease, or unspecified chronic kidney disease; E11.22 Type 2 diabetes mellitus with diabetic chronic kidney disease; N18.9 Chronic kidney disease, unspecified; I50.9 Heart failure, unspecified; I25.10 Atherosclerotic heart disease of native coronary artery without angina pectoris; E78.5 Hyperlipidemia, unspecified; J44.9 Chronic obstructive pulmonary disease, unspecified; I25.2 Old myocardial infarction
CPT/HCPCS: 36415; 73630; 80048; 85025; 99284; J7030

== ENCOUNTER → 2023-05-31 14:12 | Outpatient (BNVA) | payer MEDICARE, MEDICAID, SELFPAY | PROVIDERS: PCP Family Medicine; Visit Provider Podiatrist Foot & Ankle Surgery | DX: E11.21 Type 2 diabetes mellitus with diabetic nephropathy; L97.511 Non-pressure chronic ulcer of other part of right foot limited to breakdown of skin; E11.621 Type 2 diabetes mellitus with foot ulcer; Z89.421 Acquired absence of other right toe(s) | CPT/HCPCS: 99213 ==

== ENCOUNTER → 2023-06-03 09:40 | Outpatient (BNVA) | payer MEDICARE, MEDICAID, SELFPAY | PROVIDERS: PCP Family Medicine; Visit Provider Family Medicine | DX: I25.10 Atherosclerotic heart disease of native coronary artery without angina pectoris (principal); I95.9 Hypotension, unspecified; E16.2 Hypoglycemia, unspecified; E27.40 Unspecified adrenocortical insufficiency; N18.9 Chronic kidney disease, unspecified; E13.9 Other specified diabetes mellitus without complications | CPT/HCPCS: 80053; 81000; 82533; 82607; 82728; 82746; 83540; 83735; 84100; 84443; 85025; 85610 ==

== ENCOUNTER 2023-06-04 21:24 | Emergency (ER) | payer MEDICARE, MEDICAID, SELFPAY ==
--- NOTE | 2023-06-04 21:38 | XRR_ITS ---
PROCEDURE INFORMATION: Exam: XR Chest Exam date and time: 06/04/2023 9:42 PM Age: 67 years old Clinical indication: Dyspnea TECHNIQUE: Imaging protocol: Radiologic exam of the chest. Views: 1 view. COMPARISON: CR XR chest 1V [id number] 04/25/2023 2:09 PM FINDINGS: Lungs: Unremarkable. No consolidation. Pleural spaces: Unremarkable. No pleural effusion. No pneumothorax. Heart/Mediastinum: Cardiomegaly. Bones/joints: Unremarkable. XR/XR chest 1V portable [id number] IMPRESSION: Cardiomegaly, negative for infiltrate.
--- NOTE | 2023-06-04 21:38 | ED_ITS ---
HPI - SOB/Dyspnea 2 General: Chief Complaint: Shortness of Breath/Dyspnea Stated Complaint: RESP. DISTRESS Time Seen by Provider: 06/04/23 21:28 History of Present Illness: HPI Narrative: 67-year-old female presents emergency de partment complaints of increased shortness of breath. She states she was seen by her primary care provider on 06/03/2023. She states that since that time she has become more short of breath. She states that she is normally on home oxygen and has not had the need for an increase in her home oxygen dose. She states she has not had chest pain but feels like she is having significant difficulty taking deep breath. She denies nausea vomiting fevers chills or night sweats. Review of Systems 2 General: Reports: 10 or more systems reviewed and unremarkable except in HPI and below Resp: Reports: dyspnea and wheezing PFSH ED 2 PFSH: Medical History Neck injury Head injury due to trauma Fall with injury Hypotension Secondary hyperparathyroidism of renal origin Nonscarring hair loss Pain associated with defecation Family history of colon cancer requiring screening colonoscopy Diabetic neuropathy GERD (gastroesophageal reflux disease) Chronic rhinosinusitis Insomnia Diabetic peripheral neuropathy associated with type 2 diabetes mellitus Chronic kidney disease Cystitis cystica Coronary artery disease S/P extracorporeal shock wave therapy Renal calculus, left treated with ESWL with resolution Urolithiasis Recurrent UTI Tobacco abuse CHF (congestive heart failure) ASHD (arteriosclerotic heart disease) Diabetes 1.5, managed as type 2 CKD (chronic kidney disease) Hyperlipidemia EDNA (obstructive sleep apnea) HTN (hypertension) Obesity COPD (chronic obstructive pulmonary disease) Myocardial infarction Surgical History H/O bariatric surgery S/P angioplasty with stent Family History Mother , at age 86 CAD (coronary artery disease) Diabetes Myocardial infarction Hypertension Father , AGE 72 Diabetes CAD (coronary artery disease) Cancer LUNG Brother Diabetes CAD (coronary artery disease) Hypertension Sister Diabetes Social History Smoking and tobacco/nicotine status: current every day tobacco/nicotine user cigarettes Alcohol intake: never Adopted: No Caregiver/support person: No Marital status: Legally Current occupational status: retired and disabled Current gender identity: Female Female Reproductive History: Spontaneous abortions: No Physical Exam 2 Narrative: EXAM NARRATIVE: Constitutional: the patient appears well nourished and with normal development. Vital signs reviewed as documented. HENMT: Normocephalic, atraumatic. Extermal ears with normal appearance without drainage. Nose without drainage, normal appearance. Mucus membranes moist. Neck is supple, No jugular venous distension, trachea is midline, no appreciable carotid bruits. No lymphadenopathy. No meningeal signs. Flexion, extension and lateral rotation is without pain. Eyes: Pupils are equal, round, reactive to light and accommodation. No scleral icterus. Extra-ocular movement are intact. Thorax is symmetrical and with equal rise and fall with respirations. Resp: Scattered crackles and rhonchi throughout. Intermittent expiratory wheezes noted. Findings consistent with fluid volume excess. Cardio: Regular rate and rhythm. Positive S1, S2. No appreciable murmurs, rubs or gallops. GI: Abdominal exam reveals normal bowel sounds to all quadrants. No organomegaly. No obvious palpable masses noted. No hepatomegally appreciated. Soft, nontender to palpation. Extremity: Extremities are non-edematous and both femoral and pedal pulses are 2+ and equal bilaterally. Moves all extremities well, sensation in all extremities. Neuro: Alert and oriented x4, person, place, time and situation. Cranial nerves II through XII are grossly intact, there is no focal neurological deficits that I can appreciate at present. Motor strength in the upper and lower extremities are equal and bilateral 5/5. Psych: Cooperative, calm, normal thought process, appropriate judgment. Skin: No lesions, rashes. No gross abnormalities noted. Back: Symmetrical, no obvious deformity, No CVA tenderness Course 2 Vital Signs: Vital signs: Vital Signs Temperature 97.7 F 06/05/23 01:04 Pulse Rate 90 06/05/23 01:04 Respiratory Rate 16 06/05/23 01:04 Blood Pressure 105/77 06/05/23 01:04 Pulse Oximetry 98 06/05/23 01:04 Oxygen Delivery Me thod Nasal Cannula 06/04/23 21:39 Oxygen Flow Rate 2.5 06/04/23 21:39 MDM - SOB/Dyspnea Medical Decision Making Physical exam completed and documented, I will obtain a CBC, serial cardiac enzymes as well as serial EKGs, chest x-ray as well as a CMP and BNP. I will obtain a twelve-lead EKG as well. I reviewed the patient's previous medical records. Medical Records I reviewed the patient's medical records. Lab Data I reviewed the patient's lab results. 06/04/23 22:07 06/04/23 22:07 Labs/Radiology: Radiology Impressions Chest X-Ray 06/04/23 21:38 IMPRESSION: Cardiomegaly, negative for infiltrate. Laboratory Results WBC 6.96 10^3/uL (3.29-11.43) 06/04/23 22:07 RBC 3.40 10^6/uL (3.85-5.65) L 06/04/23 22:07 Hgb 11.40 g/dL (11.27-16.99) 06/04/23 22:07 Hct 34.1 % (36-47) L 06/04/23 22:07 MCV 100.3 fl (85-98) H 06/04/23 22:07 MCH 33.5 pg (27-33) H 06/04/23 22:07 MCHC 33.4 g/dL (30-55) 06/04/23 22:07 RDW 20.8 % (12.1-15.1) H 06/04/23 22:07 Plt Count 188 10^3/cmm (157-399) 06/04/23 22:07 MPV 12.9 fL (7.4-10.4) H 06/04/23 22:07 Neut % (Auto) 69.0 % 06/04/23 22:07 Lymph % (Auto) 28.4 % 06/04/23 22:07 [place] % (Auto) 2.3 % 06/04/23 22:07 Eos % (Auto) 0.0 % 06/04/23 22:07 Baso % (Auto) 0.0 % 06/04/23 22:07 Neut # (Auto) 4.80 10^3/uL (1.8-7.7) 06/04/23 22:07 Lymph # (Auto) 2.0 10^3/uL (0.8-4.8) 06/04/23 22:07 [place] # (Auto) 0.2 10^3/uL (0.2-0.9) 06/04/23 22:07 Eos # (Auto) 0.0 10^3/uL (0.0-0.8) 06/04/23 22:07 Baso # (Auto) 0.0 10^3/uL (0.0-0.1) 06/04/23 22:07 Nucleated RBC % (auto) 0.3 % 06/04/23 22:07 Nucleated RBCs # 0.0 /100WBC 06/04/23 22:07 PT 19.10 SECONDS (12.1-14.9) H 06/04/23 22:07 INR 1.55 (0.8-1.2) H 06/04/23 22:07 Sodium 138 mmol/L (136-145) 06/04/23 22:07 Potassium 3.8 mmol/L (3.5-5.1) 06/04/23 22:07 Chloride 102 mmol/L (98-107) 06/04/23 22:07 Carbon Dioxide 21 mmol/L (22-29) L 06/04/23 22:07 Anion Gap 18.8 (5-19) 06/04/23 22:07 BUN 9 mg/dL (8-23) 06/04/23 22:07 Creatinine 1.0 mg/dL (0.5-0.9) H 06/04/23 22:07 GFR Calculation 55.3 mL/min (90-130) L 06/04/23 22:07 Glucose 101 mg/dL (65-115) 06/04/23 22:07 Calculated Osmolality 285 mOsm/kg (285-295) 06/04/23 22:07 Calcium 8.4 mg/dL (8.5-10.5) L 06/04/23 22:07 Total Bilirubin 1.0 mg/dL (0.15-1.2) 06/04/23 22:07 AST 50 U/L (0-32) H 06/04/23 22:07 ALT 23 U/L (0-33) 06/04/23 22:07 Alkaline Phosphatase 107 U/L (35-105) H 06/04/23 22:07 Troponin T Baseline 38 ng/L (0-10) H 06/04/23 22:07 Troponin T 120 Minute 33.63 ng/L (0-10) H 06/04/23 23:54 Delta Troponin T -4.37 ABS# (0-10) L 06/04/23 23:54 NT-Pro-B Natriuret Pep 26612 pg/mL (0-125) H 06/04/23 22:07 Total Protein 6.0 g/dL (6.6-8.7) L 06/04/23 22:07 Albumin 2.5 g/dL (3.5-5.2) L 06/04/23 22:07 Globulin 3.5 g/dL (1.3-4.6) 06/04/23 22:07 All radiology interpretation(s) finalized by discharge EKG Data EKG 1: Interpretation: Twelve-lead EKG obtained at 2213 reviewed at 2216 demonstrates sinus rhythm with a ventricular rate of 66 bpm, NC interval 100 QRS duration 119 QT 343 QTc 416, there is no ST elevation or depression to demonstrate acute ischemia or infarction at present. Discharge Plan Discharge Patient Disposition: Home Clinical Impression: Acute dyspnea Acute exacerbation of CHF (congestive heart failure) Qualifiers: Heart failure type: combined systolic and diastolic Qualified Code(s): I50.43 - Acute on chronic combined systolic (congestive) and diastolic (congestive) heart failure Condition: Stable Prescriptions: New furosemide 40 mg tablet 40 mg PO QAM PRN (Reason: edema) Qty: 7 0RF No Action albuterol sulfate 90 mcg/actuation HFA aerosol inhaler 2 puff inhalation Q6H PRN (Reason: Shortness Of Breath) methenamine hippurate 1 gram tablet 1 g PO QAM Qty: 90 3RF ascorbic acid (vitamin C) [Vitamin C] 500 mg tablet 500 mg PO QAM Qty: 90 3RF Rx Instructions: TAKE WITH METHENAMINE tizanidine 4 mg tablet 4 mg PO Q6H PRN (Reason: Muscle Spasm) Qty: 90 3RF tramadol 50 mg tablet 50 mg PO BID PRN (Reason: Pain) Qty: 60 2RF prednisone 20 mg tablet 40 mg PO DAILY 5 Days Qty: 10 0RF doxycycline hyclate 100 mg tablet 100 mg PO BID 10 Days Qty: 20 0RF Eliquis 5 mg tablet 5 mg PO BID Qty: 180 3RF gabapentin 300 mg capsule See Rx Instructions .ROUTE .COMPLEX Qty: 150 5RF Rx Instructions: 900mg po qam and 600mg po qpm calcitriol 0.25 mcg capsule 0.25 mcg PO .ON MON,WED,FRI clopidogrel 75 mg tablet 75 mg PO QAM lidocaine-prilocaine 2.5-2.5 % cream See Rx Instructions .ROUTE .COMPLEX Rx Instructions: APPLY 2-3 GRAMS TOPICALLY TO AFFECTED AREA 3-4 TIMES PER DAY NEEDED nitroglycerin [Nitrostat] 0.4 mg Tablet, Sublingual 0.4 mg SUBLINGUAL Q5M PRN (Reason: Chest Pain) Rx Instructions: do not exceed 3 doses per episode levothyroxine 112 mcg tablet 112 mcg PO QAM omega-3 acid ethyl esters 1 gram capsule 3 cap PO DAILY mirtazapine 30 mg tablet 30 mg PO BEDTIME fluticasone propionate 50 mcg/actuation spray,suspension 2 spray intranasal DAILY PRN (Reason: Allergy Symptoms) rosuvastatin 10 mg tablet 10 mg PO BEDTIME midodrine 10 mg tablet 10 mg PO TID furosemide 40 mg tablet 40 mg PO Q3D Discharge Orders: Discharge ED (Routine); Ordered 06/05/23 Ordered By: Lavell Newton Referrals: Doug Allen DO [Primary Care Provider] - Discharge Diet: Advance as tolerated Discharge Activity: Resume usual activity Patient Instructions: Opioid Safety, Pain Management Activity Restrictions/Additional Instructions: Activity Restrictions/Additional Instructions: Thank you for choosing [facility] for your healthcare needs today. Please realize that you were seen in the Emergency Department and that we are providing you with an emergency medical screening exam and this may not be a complete and all inclusive of all the testing and or medical work-up that you may need to determine your ailment or severity of your illness. It is very important that you follow-up as instructed with your Primary care provider or Specialist for additional evaluation and to discuss your medical treatment plan. You may return to the Emergency Department should you have concerns or if your condition changes or worsens in any way. Coding Level of Care Code ED Casino Duty Manager for 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
[2023-06-04 21:39] VITALS: BP 96/64; PULSE 83; RESP 16; TEMP 36.5; O2SAT 100
--- NOTE | 2023-06-04 22:13 | ECG_ITS ---
[facility] Test Date: 2023-06-04 Pat Name: Peri Cid Department: Room: Gender: Female Road Inspector: : 1955 Requested By: Lavell Newton Order Number: [id number] Arturo MD: Gaston Yuan M.D. Measurements Intervals [place] Rate: 66 P: -9 NM: 100 QRS: -26 QRSD: 119 T: -34 QT: 403 QTc: 423 Interpretive Statements SINUS RHYTHM WITH SHORT NM INTERVAL LOW QRS VOLTAGE IN PRECORDIAL LEADS [QRS DEFLECTION < 1.0 mV IN CHEST LEADS] LATERAL MYOCARDIAL INFARCTION , OF INDETERMINATE AGE [40+ ms Q WAVE AND/OR ST/T ABNORMALITY IN I/aVL/V5/V6] Compared to ECG 04/26/2023 14:47:57 Short NM interval now present Low QRS voltage now present Myocardial infarct finding now present Electronically Signed On 06-05-2023 8:20:20 PHOTOLETTERING MACHINE OPERATOR by Gaston Yuan M.D. [email or web address]
[2023-06-04 22:23] LABS: Hematocrit 34.1 % (36-47); Lymphocytes % 28.4 %; Mean Corpuscular HGB Conc 33.4 g/dL (30-55); Mean Corpuscular Hemoglobin 33.5 pg (27-33); Mean Corpuscular Volume 100.3 fl (85-98); Mean Platelet Volume 12.9 fL (7.4-10.4); Monocytes # 0.2 10^3/uL (0.2-0.9); Monocytes % 2.3 %; Nucleated Red Blood Cells % 0.3 %; Platelet Count 188 10^3/cmm (157-399); Red Cell Distribution Width 20.8 % (12.1-15.1); White Blood Count 6.96 10^3/uL (3.29-11.43)
[2023-06-04 22:37] LABS: INR 1.55 (0.8-1.2)
[2023-06-04 22:44] LABS: Troponin(5th) Baseline 38 ng/L (0-10)
[2023-06-04 22:55] LABS: Alanine Aminotransferase 23 U/L (0-33); Albumin Level 2.5 g/dL (3.5-5.2); Alkaline Phosphatase 107 U/L (35-105); Aspartate Amino Transferase 50 U/L (0-32); Blood Urea Nitrogen 9 mg/dL (8-23); Calcium 8.4 mg/dL (8.5-10.5); Carbon Dioxide 21 mmol/L (22-29); Chloride 102 mmol/L (98-107); Globulin 3.5 g/dL (1.3-4.6); Glomerular Filtration Rate 55.3 mL/min (90-130); Glucose 101 mg/dL (65-115); NT Pro B Type Natriuretic Pept 13628 pg/mL (0-125); Osmolality Calculated 285 mOsm/kg (285-295); Sodium 138 mmol/L (136-145)
[2023-06-04 23:02] LABS: Anion Gap 18.8 (5-19); Potassium 3.8 mmol/L (3.5-5.1)
[2023-06-04 23:25] VITALS: BP 121/79; PULSE 64; RESP 16; O2SAT 98
[2023-06-05 00:17] LABS: Troponin 5 2HR 33.63 ng/L (0-10); Troponin 5 2HR Delta -4.37 ABS# (0-10)
[2023-06-05 00:20] VITALS: BP 105/77; PULSE 90; RESP 16; O2SAT 98
[2023-06-05] MEDS: FUROsemide 10 mg/mL SDV 10mL 80 MG IVP (00:20)
[2023-06-05 01:04] VITALS: BP 105/77; PULSE 90; RESP 16; TEMP 36.5; O2SAT 98
== END 2023-06-05 01:05 | disposition home or self-care (01) ==
PROVIDERS: Emergency Provider Internal Medicine; PCP Family Medicine
DX: R06.00 Dyspnea, unspecified (principal); I11.0 Hypertensive heart disease with heart failure; I50.23 Acute on chronic systolic (congestive) heart failure; Z79.01 Long term (current) use of anticoagulants; Z79.02 Long term (current) use of antithrombotics/antiplatelets; I13.0 Hypertensive heart and chronic kidney disease with heart failure and stage 1 through stage 4 chronic kidney disease, or unspecified chronic kidney disease; N18.9 Chronic kidney disease, unspecified; E11.22 Type 2 diabetes mellitus with diabetic chronic kidney disease; E11.40 Type 2 diabetes mellitus with diabetic neuropathy, unspecified; I25.10 Atherosclerotic heart disease of native coronary artery without angina pectoris; E78.5 Hyperlipidemia, unspecified; J44.9 Chronic obstructive pulmonary disease, unspecified; I25.2 Old myocardial infarction; F17.210 Nicotine dependence, cigarettes, uncomplicated
CPT/HCPCS: 36415; 71045; 80053; 83880; 84484; 85025; 85610; 93005; 96374; 99285; J1940

== ENCOUNTER 2023-06-05 22:40 | Emergency (ER) | payer MEDICARE, MEDICAID, SELFPAY ==
[2023-06-05 22:41] VITALS: BP 106/49; PULSE 97; RESP 22; TEMP 35.9; O2SAT 100
--- NOTE | 2023-06-05 22:58 | XRR_ITS ---
PROCEDURE INFORMATION: Exam: XR Chest Exam date and time: 06/06/2023 12:26 AM Age: 67 years old Clinical indication: Dyspnea TECHNIQUE: Imaging protocol: Radiologic exam of the chest. Views: 1 view. COMPARISON: CR (CHEST, ) 06/04/2023 9:42 PM FINDINGS: Lungs: No consolidation. Pleural spaces: No large pleural effusion. No pneumothorax. Heart/Mediastinum: Unremarkable cardiomediastinal silhouette. Bones/joints: No acute abnormality. XR/XR chest 1V portable [id number] IMPRESSION: No acute findings.
--- NOTE | 2023-06-05 23:02 | ED_ITS ---
HPI - SOB/Dyspnea 2 General: Chief Complaint: Shortness of Breath/Dyspnea Stated Complaint: SOB, panic attack Time Seen by Provider: 06/05/23 22:58 History of Present Illness: HPI Narrative: 67-year-old female was brought in by EMS tonight for concerns of shortness of breath. Family was concerned and felt like she was in more distress than normal. Family felt that she may be having a panic attack. On arrival to the ER patient is well oxygenated with O2 sats running between 97 and 100% on room air. Patient responds to questions. Patient reports just shortness of breath, and not feeling like she can catch her breath. Patient has significant amount of senile purpura. Patient is on apixaban and Eliquis both. Patient's chronic medical history includes hyperparathyroidism, GERD, diabetes mellitus, CKD, CAD, CHF, hyperlipidemia, EDNA, hypertension, and COPD. Patient reports feeling short of breath and anxious as a reason to coming in tonight. Associated symptoms: Deny chest pain, fever(s), nausea or vomiting Review of Systems 2 General: Reports: 10 or more systems reviewed and unremarkable except in HPI and below Const: Denies: fever(s) ENMT: Denies: throat pain Card: Denies: chest pain Resp: Reports: dyspnea GI: Reports: other (Poor appetite and weight loss); Denies: nausea, vomiting, diarrhea or constipation : Denies: difficulty voiding Musc: Denies: neck pain or back pain PFSH ED 2 PFSH: Medical History Neck injury Head injury due to trauma Fall with injury Hypotension Secondary hyperparathyroidism of renal origin Nonscarring hair loss Pain associated with defecation Family history of colon cancer requiring screening colonoscopy Diabetic neuropathy GERD (gastroesophageal reflux disease) Chronic rhinosinusitis Insomnia Diabetic peripheral neuropathy associated with type 2 diabetes mellitus Chronic kidney disease Cystitis cystica Coronary artery disease S/P extracorporeal shock wave therapy Renal calculus, left treated with ESWL with resolution Urolithiasis Recurrent UTI Tobacco abuse CHF (congestive heart failure) ASHD (arteriosclerotic heart disease) Diabetes 1.5, managed as type 2 CKD (chronic kidney disease) Hyperlipidemia EDNA (obstructive sleep apnea) HTN (hypertension) Obesity COPD (chronic obstructive pulmonary disease) Myocardial infarction Surgical History H/O bariatric surgery S/P angioplasty with stent Family History Mother , at age 86 CAD (coronary artery disease) Diabetes Myocardial infarction Hypertension Father , AGE 72 Diabetes CAD (coronary artery disease) Cancer LUNG Brother Diabetes CAD (coronary artery disease) Hypertension Sister Diabetes Social History Smoking and tobacco/nicotine status: current every day tobacco/nicotine user cigarettes Alcohol intake: never Adopted: No Caregiver/support person: No Marital status: Legally Current occupational status: retired and disabled Current gender identity: Female Female Reproductive History: Spontaneous abortions: No Physical Exam 2 Const: COMMON NORMALS: alert HENMT: COMMON NORMALS: normocephalic HEAD & SCALP: normocephalic MOUTH: other (Oral mucosa dry) THROAT: posterior oropharynx normal Neck/C-Spine: COMMON NORMALS: full ROM and no lymphadenopathy Resp: COMMON NORMALS: normal respiratory effort and clear to auscultation bilaterally AUSCULTATION: clear to auscultation bilaterally Cardio: COMMON NORMALS: regular rate and regular rhythm RATE: regular rate RHYTHM: regular rhythm GI: COMMON NORMALS: non-tender Back/Pelvis: COMMON NORMALS: thoracic and lumbar spine normal to inspection Extremity: COMMON NORMALS: no pedal edema Neuro: SENSORIUM/ORIENTATION: Yes alert Skin: NARRATIVE SKIN EXAM: Poor skin turgor, senile purpura Course 2 Vital Signs: Vital signs: Vital Signs Temperature 96.7 F L 06/05/23 22:41 Pulse Rate 77 06/06/23 00:40 Respiratory Rate 23 H 06/06/23 00:40 Blood Pressure 121/84 06/06/23 00:40 Pulse Oximetry 100 06/06/23 00:40 Oxygen Delivery Me thod Room Air 06/05/23 22:41 MDM - SOB/Dyspnea Medical Decision Making Patient came in tonight for complaints of anxiety and shortness of breath. Patient been seen last night for similar complaints. Patient appears chronically ill. Patient has good air movement throughout lungs. Patient's oral mucosa is dry. Patient has poor skin turgor. Patient has widespread senile purpura. Reviewed medical history and labs in the chart. Differential diagnosis includes exacerbation of CHF, exacerbation of COPD, anxiety, FL, dehydration. Patient's blood pressure was found to be low on exam. Patient was given 500 mL of fluid which improved her symptoms. Laboratory values showed no change in troponin from prior exam yesterday. CBC was unremarkable. CMP did note some low potassium at 2.8. Patient was given a 40 mEq dose of potassium orally. Patient had significant improvement of symptoms and was discharged home. Recommend patient follow-up with primary care for consideration of adjustment for furosemide. Patient was stable and discharged home. Lab Data 06/05/23 23:07 06/06/23 00:05 Labs/Radiology: Radiology Impressions Chest X-Ray 06/05/23 22:58 IMPRESSION: No acute findings. Laboratory Results WBC 10.86 10^3/uL (3.29-11.43) 06/05/23 23: RBC 3.87 10^6/uL (3.85-5.65) 06/05/23 23: Hgb 13.30 g/dL (11.27-16.99) 06/05/23 23: Hct 39.7 % (36-47) 06/05/23 23:07 MCV 102.6 fl (85-98) H 06/05/23 23:07 MCH 34.4 pg (27-33) H 06/05/23 23:07 MCHC 33.5 g/dL (30-55) 06/05/23 23:07 RDW 21.4 % (12.1-15.1) H 06/05/23 23:07 Plt Count 248 10^3/cmm (157-399) D 06/05/23 23:07 MPV 13.5 fL (7.4-10.4) H 06/05/23 23:07 Neut % (Auto) 56.5 % 06/05/23 23:07 Lymph % (Auto) 36.9 % 06/05/23 23:07 [place] % (Auto) 6.2 % 06/05/23 23: Eos % (Auto) 0.1 % 06/05/23 23:07 Baso % (Auto) 0.1 % 06/05/23 23:07 Neut # (Auto) 6.14 10^3/uL (1.8-7.7) 06/05/23 23:07 Lymph # (Auto) 4.0 10^3/uL (0.8-4.8) 06/05/23 23:07 [place] # (Auto) 0.7 10^3/uL (0.2-0.9) 06/05/23 23:07 Eos # (Auto) 0.0 10^3/uL (0.0-0.8) 06/05/23 23:07 Baso # (Auto) 0.0 10^3/uL (0.0-0.1) 06/05/23 23:07 Nucleated RBC % (auto) 0.3 % 06/05/23 23:07 Nucleated RBCs # 0.0 /100WBC 06/05/23 23:07 Sodium 140 mmol/L (136-145) 06/06/23 00:05 Potassium 2.8 mmol/L (3.5-5.1) L* 06/06/23 00:05 Chloride 102 mmol/L (98-107) 06/06/23 00:05 Carbon Dioxide 23 mmol/L (22-29) 06/06/23 00:05 Anion Gap 17.8 (5-19) 06/06/23 00:05 BUN 15 mg/dL (8-23) 06/06/23 00:05 Creatinine 1.2 mg/dL (0.5-0.9) H 06/06/23 00:05 GFR Calculation 44.8 mL/min (90-130) L 06/06/23 00:05 Glucose 82 mg/dL (65-115) 06/06/23 00:05 Calculated Osmolality 290 mOsm/kg (285-295) 06/06/23 00:05 Calcium 7.9 mg/dL (8.5-10.5) L 06/06/23 00:05 Total Bilirubin 0.9 mg/dL (0.15-1.2) 06/06/23 00:05 AST 43 U/L (0-32) H 06/06/23 00:05 ALT 24 U/L (0-33) 06/06/23 00:05 Alkaline Phosphatase 91 U/L (35-105) 06/06/23 00:05 Troponin T Baseline 40 ng/L (0-10) H 06/06/23 00:05 NT-Pro-B Natriuret Pep Cancelled 06/05/23 23:07 Total Protein 5.7 g/dL (6.6-8.7) L 06/06/23 00:05 Albumin 2.2 g/dL (3.5-5.2) L 06/06/23 00:05 Globulin 3.5 g/dL (1.3-4.6) 06/06/23 00:05 All radiology interpretation(s) finalized by discharge EKG Data EKG 1: EKG Interpretation Date: 06/05/23 EKG interpretation time: 23:05 Interpretation: EKG shows a sinus rhythm with a regular rate. No ectopy or ST elevation is noted. No prior exam was available for immediate comparison. Computer Generated Interpretation: Sinus rhythm, left anterior fascicular block, probable anterior lateral myocardial infarction of indeterminate age, abnormal EKG, unconfirmed report. Discharge Plan Discharge Patient Disposition: Home Clinical Impression: Hypokalemia, Mild dehydration Dyspnea Qualifiers: Dyspnea type: shortness of breath Qualified Code(s): R06.02 - Shortness of breath CHF (congestive heart failure) Qualifiers: Heart failure type: unspecified Heart failure chronicity: chronic Qualified Code(s): I50.9 - Heart failure, unspecified Condition: Stable Prescriptions: No Action albuterol sulfate 90 mcg/actuation HFA aerosol inhaler 2 puff inhalation Q6H PRN (Reason: Shortness Of Breath) methenamine hippurate 1 gram tablet 1 g PO QAM Qty: 90 3RF ascorbic acid (vitamin C) [Vitamin C] 500 mg tablet 500 mg PO QAM Qty: 90 3RF Rx Instructions: TAKE WITH METHENAMINE tizanidine 4 mg tablet 4 mg PO Q6H PRN (Reason: Muscle Spasm) Qty: 90 3RF tramadol 50 mg tablet 50 mg PO BID PRN (Reason: Pain) Qty: 60 2RF prednisone 20 mg tablet 40 mg PO DAILY 5 Days Qty: 10 0RF doxycycline hyclate 100 mg tablet 100 mg PO BID 10 Days Qty: 20 0RF Eliquis 5 mg tablet 5 mg PO BID Qty: 180 3RF gabapentin 300 mg capsule See Rx Instructions .ROUTE .COMPLEX Qty: 150 5RF Rx Instructions: 900mg po qam and 600mg po qpm calcitriol 0.25 mcg capsule 0.25 mcg PO .ON MON,WED,FRI clopidogrel 75 mg tablet 75 mg PO QAM lidocaine-prilocaine 2.5-2.5 % cream See Rx Instructions .ROUTE .COMPLEX Rx Instructions: APPLY 2-3 GRAMS TOPICALLY TO AFFECTED AREA 3-4 TIMES PER DAY NEEDED nitroglycerin [Nitrostat] 0.4 mg Tablet, Sublingual 0.4 mg SUBLINGUAL Q5M PRN (Reason: Chest Pain) Rx Instructions: do not exceed 3 doses per episode levothyroxine 112 mcg tablet 112 mcg PO QAM omega-3 acid ethyl esters 1 gram capsule 3 cap PO DAILY mirtazapine 30 mg tablet 30 mg PO BEDTIME fluticasone propionate 50 mcg/actuation spray,suspension 2 spray intranasal DAILY PRN (Reason: Allergy Symptoms) rosuvastatin 10 mg tablet 10 mg PO BEDTIME midodrine 10 mg tablet 10 mg PO TID furosemide 40 mg tablet 40 mg PO Q3D furosemide 40 mg tablet 40 mg PO QAM PRN (Reason: edema) Qty: 7 0RF Discharge Orders: Discharge ED (Routine); Ordered 06/06/23 Ordered By: Jae Diez Referrals: Doug Allen DO [Primary Care Provider] - Discharge Diet: Usual diet Discharge Activity: Increase activity as tolerated Patient Instructions: Hypokalemia (ED) Activity Restrictions/Additional Instructions: Follow-up with primary care regarding furosemide dosing. Patient may need to have her furosemide decreased. Ensure patient eats a healthy diet including foods with potassium. Recheck potassium in 1 week for repeat. Return to ER as needed. Coding Level of Care Code ED Side Hemmer for 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
--- NOTE | 2023-06-05 23:04 | ECG_ITS ---
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 Measurements Intervals [place] Rate: 91 P: 29 UT: 135 QRS: -60 QRSD: 101 T: 140 QT: 367 QTc: 452 Interpretive Statements SINUS RHYTHM LEFT ANTERIOR FASCICULAR BLOCK [QRS AXIS <= -45, QR IN I, RS IN II] PROBABLE ANTEROLATERAL MYOCARDIAL INFARCTION , OF INDETERMINATE AGE [35 ms Q WAVE IN I/aVL/V3-V6] Compared to ECG 06/04/2023 22:13:55 Left anterior fascicular block now present Short UT interval no longer present Myocardial infarct finding still present Electronically Signed On 06-06-2023 7:16:26 MANAGEMENT EXPERT by Venus Teran M.D. [id number]
[2023-06-05] MEDS: LORazepam 0.5 mg Tablet PO (23:20)
[2023-06-05] MEDS: sodium chloride 0.9% 500 ML 999 ML IV (23:20)
[2023-06-05 23:24] LABS: Basophils % 0.1 %; Eosinophils % 0.1 %; Hematocrit 39.7 % (36-47); Lymphocytes % 36.9 %; Mean Corpuscular HGB Conc 33.5 g/dL (30-55); Mean Corpuscular Hemoglobin 34.4 pg (27-33); Mean Corpuscular Volume 102.6 fl (85-98); Mean Platelet Volume 13.5 fL (7.4-10.4); Monocytes # 0.7 10^3/uL (0.2-0.9); Monocytes % 6.2 %; Neutrophils # 6.14 10^3/uL (1.8-7.7); Neutrophils % 56.5 %; Nucleated Red Blood Cells % 0.3 %; Platelet Count 248 10^3/cmm (157-399); Red Blood Count 3.87 10^6/uL (3.85-5.65); Red Cell Distribution Width 21.4 % (12.1-15.1); White Blood Count 10.86 10^3/uL (3.29-11.43)
[2023-06-06 00:37] LABS: Troponin(5th) Baseline 40 ng/L (0-10)
[2023-06-06 00:39] LABS: Alanine Aminotransferase 24 U/L (0-33); Albumin Level 2.2 g/dL (3.5-5.2); Alkaline Phosphatase 91 U/L (35-105); Anion Gap 17.8 (5-19); Aspartate Amino Transferase 43 U/L (0-32); Blood Urea Nitrogen 15 mg/dL (8-23); Calcium 7.9 mg/dL (8.5-10.5); Carbon Dioxide 23 mmol/L (22-29); Chloride 102 mmol/L (98-107); Globulin 3.5 g/dL (1.3-4.6); Glomerular Filtration Rate 44.8 mL/min (90-130); Glucose 82 mg/dL (65-115); Osmolality Calculated 290 mOsm/kg (285-295); Sodium 140 mmol/L (136-145); Total Bilirubin 0.9 mg/dL (0.15-1.2); Total Protein 5.7 g/dL (6.6-8.7)
[2023-06-06 00:40] VITALS: BP 121/84; PULSE 77; RESP 23; O2SAT 100
[2023-06-06 00:40] LABS: Potassium 2.8 mmol/L (3.5-5.1)
[2023-06-06 00:46] LABS: NT Pro B Type Natriuretic Pept 16757 pg/mL (0-125)
[2023-06-06] MEDS: potassium chloride oral liq 20 mEq/15 mL UDC 40 MEQ PO (00:53)
== END 2023-06-06 01:10 | disposition home or self-care (01) ==
PROVIDERS: Emergency Provider Nurse Practitioner Family; PCP Family Medicine
DX: E87.6 Hypokalemia (principal); E86.0 Dehydration; R06.02 Shortness of breath; Z79.01 Long term (current) use of anticoagulants; Z79.02 Long term (current) use of antithrombotics/antiplatelets; F17.210 Nicotine dependence, cigarettes, uncomplicated; I13.0 Hypertensive heart and chronic kidney disease with heart failure and stage 1 through stage 4 chronic kidney disease, or unspecified chronic kidney disease; E11.22 Type 2 diabetes mellitus with diabetic chronic kidney disease; N18.9 Chronic kidney disease, unspecified; I50.9 Heart failure, unspecified; E11.42 Type 2 diabetes mellitus with diabetic polyneuropathy; I25.10 Atherosclerotic heart disease of native coronary artery without angina pectoris; E78.5 Hyperlipidemia, unspecified; J44.9 Chronic obstructive pulmonary disease, unspecified; I25.2 Old myocardial infarction
CPT/HCPCS: 36415; 71045; 80053; 83880; 84484; 85025; 93005; 96360; 99285; J7040

== ENCOUNTER → 2023-06-10 08:06 | Outpatient (BNVA) | payer MEDICARE, MEDICAID, SELFPAY | PROVIDERS: PCP Family Medicine; Visit Provider Podiatrist Foot & Ankle Surgery | DX: E11.21 Type 2 diabetes mellitus with diabetic nephropathy; L97.511 Non-pressure chronic ulcer of other part of right foot limited to breakdown of skin; E11.621 Type 2 diabetes mellitus with foot ulcer; Z89.421 Acquired absence of other right toe(s) | CPT/HCPCS: 99213 ==

== ENCOUNTER 2023-06-11 13:33 | Observation (INO) | payer MEDICARE, MEDICAID, SELFPAY ==
--- OUTSIDE RECORDS SUMMARY | 2023-06-11 13:38 | XMS_ITS | Patient Health Record ---
Author Name Unknown Organization [facility] Address [address] [facility] [place] [address] Care Team Providers Care Rehabilitation Services Aide Name Role Phone Oswaldo Bermeo Primary Care Provider ALLERGIES Allergen (clinical drug ingredient) Drug/Non Drug Allergy documented on EMR Reaction Allergy Type Onset Date Status hepatitis B immune globulin Hepatitis B Immune Globulin Human Unknown Drug Allergy Active RESULTS Component Value Reference Range Notes Colonoscopy, High Risk Troy [id number] Reviewed date:10/11/2022 09:15:55 AM Interpretation: Performing Lab: Notes/Report: REASON FOR REFERRAL Reason history of colon can cer pain associated with defecation Diagnosis 1 Family history of ma lignant neoplasm of digestive organs (Z80.0) Diagnosis 2 Other specified symp toms and signs involving the digestive system and abdomen (R19.8) Referred Organization [facility] Referred Provider Oswaldo Bermeo Referred Address [address] [place] [phone], Referred Provider Specialty Internal Med icine General Notes Mercedes James 01:39:15 PM >no answer. left voicemail Referral Priority Routine MEDICATIONS Medication SIG (Take, Route, Frequency, Duration) Notes Start Date End Date Status Methenamine Hippurate 1 GM 1 tablet Oral ly Twice a day Active Amitriptyline HCl 50 MG 1 tablet at bedt dejan Orally Once a day Active Levothyroxine Sodium 112 MCG 1 tablet in the morning on an empty stomach Orally Once a day Active Albuterol 90 MCG/ACT as directed Inhalation Active Lansoprazole 30 MG 1 capsule before a m eal Orally Once a day Active Krill Oil 1000 MG as directed Orally Active Gabapentin 900 mg Active traMADol HCl 50 MG 1 tablet as needed Orally Once a day Active Furosemide 40 MG 1 tablet Orally Once a day Active tiZANidine HCl 4 MG 1 tablet as needed Orally Three times a day Active Enalapril Maleate 2.5 MG 1 tablet Orally Once a day Active Rosuvastatin Calcium 10 MG 1 tablet Oral ly Once a day Active Clopidogrel Bisulfate 75 MG 1 tablet Ora lly Once a day Active Nitroglycerin 0.4 MG as directed Sublingual Active Calcitriol 0.25 MCG 1 capsule Orally Thr ee times a Week Active Mirtazapine 30 MG 1 tablet at bedtime Orally Once a day Active Ascorbic Acid 500 MG 1 tablet Orally Onc e a day Active Metoprolol Succinate ER 25 MG 1 tablet Orally Once a day Active Apixaban 5 MG 1 tablet Orally Twic e a day Active SOCIAL HISTORY Tobacco Use: Social History Observation Description Date Details (start date - stop date) Current Smoker NA - NA Sex Assigned At : Social History Observation Description Sex Assigned At Unknown Tobacco Use/Smoking Question Answer Notes Are you a current smoker How often do you smoke cigarettes? every day How many cigarettes a day do you smoke? 11-20 Alcohol Screen (Audit-C) Question Answer Notes Did you have a drink containing alcohol in the p ast year? No Points 0 Interpretation Negative PROBLEMS Problem Type ICD Code Onset Dates Problem Status W/U Status Risk SNOMED Code Notes Problem History of colon polyps (Z86.010) Active confirmed 676934854 Problem Family history of colon cancer in father (Z80.0) Active confirmed [id number] VITAL SIGNS Heart Rate 94 /min 08/20/2022 Temperature 97.9 degrees Fahrenheit 08/20/2022 Respiratory Rate 22 /min 08/20/2022 Height-cm 187.96 cm 08/20/2022 Oximetry 90 % 08/20/2022 Blood pressure diastolic 52 mm Hg 08/20/2022 Weight-kg 99.25 kg 08/20/2022 Height 74 in 08/20/2022 Blood pressure systolic 108 mm Hg 08/20/2022 Weight 218.8 lbs 08/20/2022 BMI 28.09 kg/m2 08/20/2022 Encounters Encounter Location Date Provider Diagnosis [facility] [address] [place] [address] 06/06/2023 Oswaldo Bermeo [facility] [address] [place] [address] 03/28/2023 Oswaldo Bermeo [facility] [address] [place] [address] 08/20/2022 Oswaldo Bermeo Family history of colon cancer in father Z80.0 and History of colon polyps Z86.010 [facility] [address] [place] [address] 08/10/2022 Oswaldo Bermeo ASSESSMENTS Encounter Date Diagnosis Assessment Notes Treatment Notes Treatment Clinical Notes 08/20/2022 History of colon polyps (ICD-10 - Z86.010) 08/20/2022 Family history of colon cancer in father (ICD-10 - Z80.0) PLAN OF TREATMENT No Information Insurance Providers Payer Name Payer Address Payer Phone Subscriber Number Group Number Insured Name Patient Relationship to Insured Coverage Start Date Coverage End Date [facility] [employer] [address] [address] [place] [address] [id number] Cid, Peri Self - patient is the insured [place] Medicare [address] [place] [address] [id number] Rosas Cida Self - patient is the insured [place] Medicaid [address] [place] [address] [id number] Rosas Cida Self - patient is the insured MEDICAL (GENERAL) HISTORY Medical History History ICD Code ASHD (arteriosclerotic heart disease) I2 5.10 CHF (congestive heart failure) I50.9 CKD (chronic kidney disease) N18.9 COPD (chronic obstructive pulmonary dise ase) J44.9 GERD (gastroesophageal reflux disease) K 21.9 HTN (hypertension) I10 Obesity E66.9 Surgical History Surgery Date(Month/Year) colonoscopy baryactric surgery 11 stents in coronary artery tubaligation
[2023-06-11 13:58] VITALS: BP 95/59; PULSE 88; PULSE 95; RESP 21; O2SAT 100
--- NOTE | 2023-06-11 14:04 | ECG_ITS ---
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 Measurements Intervals [place] Rate: 97 P: 44 [place]: 140 QRS: -47 QRSD: 117 T: 60 QT: 365 QTc: 465 Interpretive Statements SINUS RHYTHM POSSIBLE ANTERIOR MYOCARDIAL INFARCTION [30 ms Q WAVE IN V3/V4, OR R < 0.2 mV IN V4], OF INDETERMINATE AGE INFERIOR MYOCARDIAL INFARCTION [40+ ms Q WAVE AND/OR ST/T ABNORMALITY IN II/aVF], PROBABLY OLD Compared to ECG 06/05/2023 22:56:26 Left anterior fascicular block no longer present Myocardial infarct finding still present Electronically Signed On 06-11-2023 22:25:14 CUE SELECTOR by Venus Teran M.D. [id number]
--- NOTE | 2023-06-11 14:04 | XR_ITS ---
WS: [id number] Portable AP upright chest, 06/11/2023 Clinical Data: dyspnea, hypoxia Comparison: Portable chest, 06/06/2023 Findings: No nodules, masses or effusions are seen. The heart is normal. The pulmonary vascularity is not increased. No pneumonia or pneumothorax is seen. The aortic arch and descending thoracic aorta s how minimal tortuosity. There is a dextroscoliosis. There are monitor leads on the chest wall. There are surgical sutures in the left upper quadrant. Impression: Atherosclerosis.
[2023-06-11 14:09] VITALS: BMI 25.4
--- NOTE | 2023-06-11 14:14 | P.HP_ITS ---
Providers/Chief Complaint 2 Admitting Physician: José Miguel Farrell MD Primary Care Provider: Doug Allen DO Chief Complaint: Dehydration / Resp Distress / Weight Loss History of Present Illness Peri Cid is a 67 year old female presenting to the hospital as a direct admission from clinic. Her primary care provider was very concerned about her as she has been vomiting over the last week, has lost greater than 50 pounds over the last 4 months, and has become significantly weaker. She has not had any fever. She has been seen in the emergency department multiple times, with her last visit for weakness being about 4 days ago and having some electrolyte abnormalities. She is currently on doxycycline and prednisone, I believe placed for a COPD exacerbation. She denies any significant skin breakdown other than healing ulcers on her right foot which podiatry is following and reporting there is no current evidence of infection. She denies any chest pain. She does get short of breath with exertion. She herself is not a good historian, and daughter is used for ancillary history and feels in many of the gaps. The daughter reports that her mother is frequently panicked, and has episodes of confusion and hallucinations. She has quite a bit of back pain for which she is on medication for. They recently stopped the Neurontin thinking this was leading to some of her hallucinations. She has a chronic cough, but is not significantly worse. She has occasional loose stool once a day. There is no blood in her stool. She has had no blood in her emesis. She has no abdominal pain. Most of the time she just dry heaves. She continues to smoke. Review of Systems 2 General: Reports: 10 or more systems reviewed and unremarkable except in HPI and below Card: Denies: chest pain Resp: Reports: dyspnea GI: Reports: nausea and vomiting; Denies: abdominal pain Medications/Allergies Home Medications Medication Instructions Recorded Confirmed Last Taken Type albuterol sulfate 90 mcg/actuation 2 puff inhalation Q6H PRN 11/29/20 06/11/23 Unknown History aerosol inhaler Shortness Of Breath calcitriol 0.25 mcg capsule 0.25 mcg PO .ON MON,WED,Sat10/15/22 06/11/23 06/10/23 History apixaban 5 mg tablet (Eliquis) 5 mg PO BID #180 tabs 01/24/23 06/11/23 06/10/23 Rx clopidogrel 75 mg tablet 75 mg PO QAM 01/26/23 06/11/23 06/10/23 History levothyroxine 112 mcg tablet 112 mcg PO QAM 01/26/23 06/11/23 06/10/23 History lidocaine-prilocaine 2.5 %-2.5 % See Rx Instructions .Route .COMPLEX 01/26/23 06/11/23 05/30/23 History topical cream nitroglycerin 0.4 mg sublingual 0.4 mg sublingual Q5M PRN Chest 01/26/23 06/11/23 Unknown History tablet (Nitrostat) Pain omega-3 acid ethyl esters 1 gram 3 cap PO DAILY 01/26/23 06/11/23 06/10/23 History capsule ascorbic acid (vitamin C) 500 mg 500 mg PO QAM #90 tabs 03/26/23 06/11/23 06/10/23 Rx tablet (Vitamin C) methenamine hippurate 1 gram tablet 1 g PO QAM #90 tabs 03/26/23 06/11/23 06/10/23 Rx gabapentin 300 mg capsule See Rx Instructions .Route 04/01/23 06/11/23 06/10/23 Rx .COMPLEX #150 caps fluticasone propionate 50 2 spray intranasal DAILY PRN 04/25/23 06/11/23 05/30/23 History mcg/actuation nasal Allergy Symptoms spray,suspension mirtazapine 30 mg tablet 30 mg PO BEDTIME 04/25/23 06/11/23 06/10/23 History rosuvastatin 10 mg tablet 10 mg PO BEDTIME 04/25/23 06/11/23 06/10/23 History tizanidine 4 mg tablet 4 mg PO Q6H PRN Muscle Spasm #90 05/06/23 06/11/23 06/10/23 Rx tabs tramadol 50 mg tablet 50 mg PO BID PRN Pain #60 tabs 05/06/23 06/11/23 Unknown Rx midodrine 10 mg tablet 10 mg PO TID 05/30/23 06/11/23 06/10/23 History doxycycline hyclate 100 mg tablet 100 mg PO BID 10 days #20 tabs 06/03/23 06/11/23 06/10/23 Rx furosemide 40 mg tablet 40 mg PO QAM PRN edema #7 tabs 1206/11/23 06/10/23 Rx lansoprazole 30 mg capsule,delayed 30 mg PO DAILY 06/11/23 06/11/23 06/10/23 History release metoprolol succinate 25 mg 25 mg PO BEDTIME 06/11/23 06/11/23 06/10/23 History tablet,extended release 24 hr prednisone 20 mg tablet 40 mg PO DAILY 06/11/23 06/11/23 06/10/23 History Allergies Allergy/AdvReac Type Severity Reaction Status Date / Time hepatitis B immune globulin Allergy Unknown Unknown Verified 06/11/23 09:36 PFSH Acute 2 PFSH: Medical History Neck injury Head injury due to trauma Fall with injury Hypotension Secondary hyperparathyroidism of renal origin Nonscarring hair loss Pain associated with defecation Family history of colon cancer requiring screening colonoscopy Diabetic neuropathy GERD (gastroesophageal reflux disease) Chronic rhinosinusitis Insomnia Diabetic peripheral neuropathy associated with type 2 diabetes mellitus Chronic kidney disease Cystitis cystica Coronary artery disease S/P extracorporeal shock wave therapy Renal calculus, left treated with ESWL with resolution Urolithiasis Recurrent UTI Tobacco abuse CHF (congestive heart failure) ASHD (arteriosclerotic heart disease) Diabetes 1.5, managed as type 2 CKD (chronic kidney disease) Hyperlipidemia EDNA (obstructive sleep apnea) HTN (hypertension) Obesity COPD (chronic obstructive pulmonary disease) Myocardial infarction Surgical History H/O bariatric surgery S/P angioplasty with stent Family History Mother , at age 86 CAD (coronary artery disease) Diabetes Myocardial infarction Hypertension Father , AGE 72 Diabetes CAD (coronary artery disease) Cancer LUNG Brother Diabetes CAD (coronary artery disease) Hypertension Sister Diabetes Social History Smoking and tobacco/nicotine status: current every day tobacco/nicotine user cigarettes Alcohol intake: never Adopted: No Caregiver/support person: No Marital status: Legally Current occupational status: retired and disabled Current gender identity: Female Female Reproductive History: Spontaneous abortions: No Physical Exam 2 Narrative: General exam demonstrates a thin appearing white female, who often gets off track during presentation of history. HEENT: Atraumatic and normocephalic. Pupils equally round. Arcus senilis is present. Oropharynx demonstrates dry mucous membranes Neck is supple no lymphadenopathy thyromegaly Cardiovascular regular rate and rhythm, no murmur Lungs diminished breath sounds bilaterally. A few expiratory wheezes heard. Abdomen is soft scaphoid with positive bowel sounds. No obvious organomegaly exams deferred Extremities no cyanosis clubbing or edema. Extremities are cool. Difficult to feel pulses. Some bandages are present on the left foot but no evidence of erythema or infection Skin no rash Neuro no obvious focal deficits. Seems to be slightly confused. Data 06/11/23 15:21 06/11/23 15:21 Other Labs: Urinalysis pending Chest x-ray no infiltrate by my read EKG by my read sinus rhythm, left axis deviation, Q waves inferiorly, nonspecific ST-T wave changes. Poor R wave progression. Previous echo in January demonstrated pulmonary hypertension, with pulm artery pressure around 70, 2/4 diastolic dysfunction, EF around 50 to 55% BNP 8875, albumin 2.6. AST, ALT elevated slightly. Bilirubin normal. Magnesium normal. Calcium 8.3. TSH elevated at 14 A&P Assessment and plan (1) Hypokalemia: Patient presents as a direct admission from the primary care office with weakness. Hypokalemia is found. Supplement potassium IV 40 mill equivalents as well as 40 mill equivalents p.o. BMP will be repeated tomorrow morning. (2) Weakness: Patient significantly weak. This is multifactorial. This may be is from her significant COPD, pulmonary hypertension, hypokalemia, dehydration, etc. PT evaluation Rehydration Nutritional supplementation Magnesium was checked and normal (3) Transaminitis: Patient with transaminitis Recent CT reviewed Gallbladder ultrasound will be obtained. Past history of gallstones Hepatitis panel Check repeat LFTs tomorrow (4) Acute encephalopathy: Daughter reports patient has hallucinations and gets confused at times. This may be secondary to dehydration or medical illness or could be secondary to medication such as muscle relaxant or tramadol. At this point discontinue muscle relaxant Continue tramadol as needed Monitor placement closely for improvement. Note that she had a CT head with no acute abnormality in January (5) Pulmonary hypertension: Patient with severe pulmonary hypertension by her last echo. This may contribute to her hypotension Hold off on diuretics Follow closely to make sure no fluid overload occurs Continue oxygen at 2 L, titrate as needed Overall this may be difficult to treat with ongoing smoking and severe COPD (6) COPD (chronic obstructive pulmonary disease): Budesonide twice daily DuoNeb every 6 hours (7) Atrial fibrillation: Patient with 1 episode of atrial fibrillation, following a drug-eluting stent in 2019. The episode was brief. Secondary to extensive bruising, concurrently being on Plavix, will reduce her Eliquis dose to 2.5 mg twice daily. Anticoagulant can still be indicated in patients with severe pulmonary hypertension (8) Acquired hypothyroidism: TSH is elevated. Increase levothyroxine to 125 mcg (9) Severe protein-calorie malnutrition: Encourage p.o. intake. Changed to regular diet. Nutritional supplement 3 times daily with meals (10) Nausea and vomiting: Nausea treatment will occur Initiate Protonix twice daily Gallbladder ultrasound Monitor in house to see if eating improves Qualifiers: Vomiting type: unspecified Qualified Code(s): R11.2 - Nausea with vomiting, unspecified (11) Mild dehydration: Hydrate with isotonic fluids CBC, CMP in the morning Plan Multiple other medical problems as outlined in past medical history Allow natural Apixaban will be used for DVT prophylaxis Attestations 2 Medical Necessity Statement*: Will need less than 2 midnight stay for evaluation and treatment of weakness and hypokalemia Diagnoses Hypokalemia E87.6 Weakness R53.1 Transaminitis R74.01 Acute encephalopathy G93.40 Pulmonary hypertension I27.20 Chronic obstructive pulmonary disease with acute exacerbation J44.9 Atrial fibrillation I48.91 Acquired hypothyroidism E03.9 Severe protein-calorie malnutrition E43 Nausea and vomiting, unspecified vomiting type R11.2 Vomiting type: unspecified Mild dehydration E86.0 Time Spent (min) 53
--- NOTE | 2023-06-11 14:25 | PC.PHAR ---
PTS' DAUGHTER KRISS, STATES PT IS CURRENTLY TAKING CLOPIDOGREL 75 MG EVERY MORNING AND ELIQUIS 5 MG TWICE DAILY. PT STILL TAKING DOXYCYCLINE HYCLATE 100 MG TABLET TWICE DAILY AND PREDNISONE 20 MG 2 TABLETS DAILY.
[2023-06-11] MEDS: sodium chloride 0.9% 1,000 ML 75 ML IV (14:58)
[2023-06-11] MEDS: midodrine 5 mg TABLET 10 MG PO ×2 (15:00→20:12)
[2023-06-11 15:47] LABS: Basophils % 0.3 %; Eosinophils % 0.2 %; Hematocrit 36.5 % (36-47); Lymphocytes # 1.6 10^3/uL (0.8-4.8); Lymphocytes % 17.8 %; Mean Corpuscular HGB Conc 33.2 g/dL (30-55); Mean Corpuscular Hemoglobin 33.9 pg (27-33); Mean Corpuscular Volume 102.2 fl (85-98); Mean Platelet Volume 13.1 fL (7.4-10.4); Monocytes # 0.8 10^3/uL (0.2-0.9); Monocytes % 8.7 %; Neutrophils # 6.45 10^3/uL (1.8-7.7); Neutrophils % 72.3 %; Nucleated Red Blood Cells % 0.4 %; Platelet Count 156 10^3/cmm (157-399); Red Blood Count 3.57 10^6/uL (3.85-5.65); Red Cell Distribution Width 19.4 % (12.1-15.1); White Blood Count 8.93 10^3/uL (3.29-11.43)
[2023-06-11 15:58] VITALS: BP 133/80; PULSE 89; RESP 16; O2SAT 99
[2023-06-11 16:04] LABS: Slide Review Slide Review Perform
[2023-06-11 16:30] LABS: Folate Level 3.9 ng/mL (4.8-37.3)
[2023-06-11 16:33] LABS: Alanine Aminotransferase 40 U/L (0-33); Albumin Level 2.6 g/dL (3.5-5.2); Alkaline Phosphatase 113 U/L (35-105); Anion Gap 17.9 (5-19); Aspartate Amino Transferase 68 U/L (0-32); Blood Urea Nitrogen 12 mg/dL (8-23); Calcium 8.3 mg/dL (8.5-10.5); Carbon Dioxide 22 mmol/L (22-29); Chloride 103 mmol/L (98-107); Estmated Average Glucose 77; Globulin 3.2 g/dL (1.3-4.6); Glomerular Filtration Rate 37.5 mL/min (90-130); Glucose 72 mg/dL (65-115); Hemoglobin A1C 4.3 % (4.0-6.0); Magnesium 1.8 mg/dL (1.7-2.3); NT Pro B Type Natriuretic Pept 8875 pg/mL (0-125); Osmolality Calculated 288 mOsm/kg (285-295); Sodium 140 mmol/L (136-145); Total Bilirubin 0.9 mg/dL (0.15-1.2); Total Protein 5.8 g/dL (6.6-8.7); Vitamin B12 494 pg/mL (232-1245)
[2023-06-11 16:35] LABS: Potassium 2.9 mmol/L (3.5-5.1)
--- NOTE | 2023-06-11 16:38 | US_ITS ---
WS: [id number] RIGHT UPPER QUADRANT ULTRASOUND HISTORY: elevated LFT's COMPARISON: 03/09/2009 Liver: 14.0 cm in length. Poorly visualized liver. Coarse echotexture from hepatic steatosis. The ent ag liver is not very well visualized. It would be difficult to exclude intrahepatic biliary dilatati on. Portal Vein: Not visualized. Gallbladder: Normally distended with at least 1 large stone. Large calcification measuring 2.3 cm max imum diameter. Smaller stones are probably CBD: 0.3 cm Pancreas: Completely obscured. Right kidney: 9.1 cm in length. Normal size and echogenicity. No hydronephrosis or mass. Aorta and IVC: Not visualized. No ascites. IMPRESSION: 1. Cholelithiasis without evidence for acute cholecystitis. 2. Normal size liver with marked hepatic steatosis. Liver is poorly visualized.
[2023-06-11] MEDS: potassium chloride ER 20 mEq Tablet 40 MEQ PO (16:52)
[2023-06-11] MEDS: gabapentin 300 mg Capsule PO (16:52)
[2023-06-11] MEDS: pantoprazole DR 40 mg Tablet PO (16:53)
[2023-06-11] MEDS: potassium phosphate (mEq K) 40 MEQ in sodium chloride 0.9% (100 ml) 100 ML 27.27 MEQ IV (17:26)
[2023-06-11 20:00] VITALS: BP 90/65; PULSE 92; RESP 18; TEMP 37; O2SAT 99
[2023-06-11] MEDS: atorvastatin 40 mg Tablet PO (20:12)
[2023-06-11] MEDS: apixaban 5 mg Tablet 2.5 MG PO (20:12)
[2023-06-11] MEDS: ipratropium-albuterol 3 mL Neb INHALATION (21:34)
[2023-06-11] MEDS: budesonide 0.5 mg/2 mL Neb INHALATION (21:34)
[2023-06-11 21:37] VITALS: PULSE 85; RESP 15; O2SAT 96
[2023-06-11 21:42] LABS: Hepatitis A Antibody IgM Non-Reactive (Nonreactive); Hepatitis B Core IgM Non-Reactive (Nonreactive); Hepatitis B Surface Antigen Non-Reactive (Nonreactive); Hepatitis C Virus Antibody Non-Reactive (Nonreactive)
[2023-06-11 22:00] VITALS: PULSE 74
[2023-06-12] VITALS (12 sets, daily range): BP systolic 78–120; BP diastolic 51–69; PULSE 45–90; RESP 16–22; TEMP 36.4–37; O2SAT 92–100
[2023-06-12] MEDS: sodium chloride 0.9% 1,000 ML 75 ML IV ×2 (03:29→23:00)
[2023-06-12 05:26] LABS: Add Urine Microscopic? YES; Bilirubin Urine 1+ (Negative); Blood Urine 2+ (Negative); Glucose Urine UA Norm (Normal); Ketones Urine 1+ (Negative); Leukocyte Esterase Urine 2+ (Negative); Nitrate Urine Negative (Negative); Protein Urine Neg (Negative); Specific Gravity, Urine 1.025 (1.005-1.030); Urine Appearance Cloudy (CLEAR); Urine Color Dark Yellow (Yellow); Urobilinogen Urine 1 mg/dL (Negative); pH Urine 5 (5-7)
[2023-06-12 05:27] LABS: Add Urine Culture? No; Bacteria Urine 4+ /hpf; Hyaline Casts Urine 0-4 /lpf; Mucus Urine 2+ /hpf; WBC Urine 25-40 /hpf (0-5)
[2023-06-12] MEDS: clopidogrel 75 mg Tablet PO (05:28)
[2023-06-12] MEDS: levothyroxine 125 mcg Tablet PO (05:28)
--- NOTE | 2023-06-12 08:02 | PC.SOCIAL ---
IMM Update pg 2 of IMM not updated @ this time as patient is currently in observation status.
[2023-06-12 08:04] LABS: Basophils % 0.3 %; Eosinophils # 0.2 10^3/uL (0.0-0.8); Eosinophils % 2.5 %; Hematocrit 33.4 % (36-47); Lymphocytes # 2.6 10^3/uL (0.8-4.8); Monocytes # 0.6 10^3/uL (0.2-0.9); Monocytes % 8.8 %; Neutrophils # 3.63 10^3/uL (1.8-7.7); Neutrophils % 50.8 %; Nucleated Red Blood Cells % 0.3 %; Platelet Count 132 10^3/cmm (157-399); Red Blood Count 3.15 10^6/uL (3.85-5.65); Red Cell Distribution Width 19.9 % (12.1-15.1); White Blood Count 7.14 10^3/uL (3.29-11.43)
[2023-06-12 08:15] LABS: Alanine Aminotransferase 34 U/L (0-33); Albumin Level 2.4 g/dL (3.5-5.2); Alkaline Phosphatase 91 U/L (35-105); Aspartate Amino Transferase 54 U/L (0-32); Blood Urea Nitrogen 9 mg/dL (8-23); Carbon Dioxide 25 mmol/L (22-29); Chloride 108 mmol/L (98-107); Globulin 2.4 g/dL (1.3-4.6); Glomerular Filtration Rate 49.5 mL/min (90-130); Glucose 55 mg/dL (65-115); Magnesium 1.7 mg/dL (1.7-2.3); Osmolality Calculated 290 mOsm/kg (285-295); Sodium 142 mmol/L (136-145); Total Bilirubin 0.6 mg/dL (0.15-1.2); Total Protein 4.8 g/dL (6.6-8.7)
[2023-06-12 08:17] LABS: Anion Gap 13.4 (5-19); Potassium 4.4 mmol/L (3.5-5.1)
[2023-06-12] MEDS: budesonide 0.5 mg/2 mL Neb INHALATION ×2 (08:54→19:58)
[2023-06-12] MEDS: ipratropium-albuterol 3 mL Neb INHALATION ×3 (08:54→19:58)
[2023-06-12] MEDS: midodrine 5 mg TABLET 10 MG PO ×3 (09:37→21:09)
[2023-06-12] MEDS: apixaban 5 mg Tablet 2.5 MG PO ×2 (09:38→21:09)
[2023-06-12] MEDS: pantoprazole DR 40 mg Tablet PO ×2 (09:38→17:27)
[2023-06-12] MEDS: gabapentin 300 mg Capsule PO ×2 (09:38→17:27)
[2023-06-12] MEDS: folic acid 1 mg Tablet PO (09:38)
--- NOTE | 2023-06-12 11:07 | CT_ITS ---
WS: [id number] CT ABDOMEN PELVIS TECHNIQUE: Contrast-enhanced CT of the abdomen and pelvis with coronal and sagittal reformatted image s. CLINICAL INFORMATION: vomiting COMPARISON: CT 04/25/23 and 01/29/2023 DLP: 535.[address] scans at [facility] use at least one of these dose optimization techniques: automated e xposure control; mA and/or kV adjustment per patient size (includes targeted exams where dose is matc hed to clinical indication); or iterative reconstruction. FINDINGS: Diffuse fatty filtration of the liver. Normal portal vein and splenic vein. Large laminated gallstone in the gallbladder unchanged compared to the prior studies. No significant gallbladder wall thickeni ng or pericholecystic fluid. Mild prominence of the common bile duct measuring 7 mm appears similar t o the prior studies. This can be further evaluated with MRCP. Recommend correlation with biliary func tion studies. Fatty atrophy of the pancreas. Normal spleen. Small esophageal hiatal hernia. Prior postoperative ze nges gastric bypass with Sebastian-en-Y anastomosis. Anastomosis appears stable compared to previous. No e vidence of high-grade obstruction. Oral contrast is visualized in the distal small bowel. Adrenal glands are normal. Normal renal parenchymal enhancement. No hydronephrosis. Continued resolut ion of the previously described inferior rectus sheath hematoma with more low-attenuation change toda y measuring 3.6 cm. A few colonic diverticuli. No evidence of acute diverticulitis. No evidence of hi gh-grade small or large bowel obstruction. Fluid within the patulous sigmoid colon. Normal caliber sm all bowel. Small amount of free fluid in the pelvis similar to the prior studies. IMPRESSION: 1. No evidence of high-grade small or large bowel obstruction. Field fluid within the patulous sigmo id colon. 2. Prior postoperative changes gastric bypass with Sebastian-en-Y anastomosis. No evidence of leak or obs tructive stricture. 3. Small esophageal hiatal hernia. 4. Diffuse infiltration the liver. 5. Large laminated gallstone in the gallbladder. No gallbladder wall thickening or pericholecystic f luid. 6. Mild prominence of the common bile duct measuring 7 mm appears stable. Recommend correlation with biliary function studies. This could further evaluated with MRCP if indicated. 7. No hydronephrosis in either kidney. 8. Resolving previously described inferior rectus sheath hematoma.
[2023-06-12] MEDS: calcitriol 0.25 mcg Capsule PO (12:13)
[2023-06-12] MEDS: iohexol 350 mg/mL 500 mL Btl (per mL) IV (12:28)
[2023-06-12] MEDS: iohexol 350 mg/mL 500 mL Btl (per mL) PO (12:29)
--- NOTE | 2023-06-12 12:43 | P.PN_ITS ---
Subjective 2 Subjective: Peri reports she was doing okay when I saw her this morning. She denied any nausea or vomiting, enjoyed the nutritional supplement. However, I was notified by nursing later that she vomited some of this up. She denies any chest pain. Medications: Reviewed: Yes Vitals/I&O/Wt Last Vital Signs Temp 97.9 F 06/12/23 11:15 Pulse 90 06/12/23 11:15 Resp 17 06/12/23 11:15 BP 78/51 06/12/23 11:15 Pulse Ox 99 06/12/23 11:15 O2 Del Method Nasal Cannula 06/12/23 11:15 O2 Flow Rate 2 06/12/23 11:15 06/11/23 06/12/23 06/12/23 22:59 06:59 14:59 Intake Total 588.5106 / 588.5106 1178.75 / 1767.2606 Output Total 300 / 300 Balance 588.5106 / 588.5106 878.75 / 1467.2606 Weight last 48 hrs Weight 67.16 kg Weight 67.16 kg Physical Exam 2 Narrative: General exam no distress Neck is supple no lymphadenopathy thyromegaly Cardiovascular regular rate and rhythm, no murmur Lungs diminished breath sounds bilaterally. No wheezes Abdomen is soft scaphoid with positive bowel sounds. No obvious organomegaly Extremities no cyanosis clubbing or edema. Extremities are cool. Difficult to feel pulses. Some bandages are present on the left foot but no evidence of erythema or infection Data 06/12/23 07:43 06/12/23 07:43 A&P Assessment and plan (1) Hypokalemia: Patient presents as a direct admission from the primary care office with weakness. Hypokalemia is found. Potassium was supplemented It is normal this morning. Magnesium was checked and normal. (2) Weakness: Patient significantly weak. This is multifactorial. This may be is from her significant COPD, pulmonary hypertension, hypokalemia, dehydration, etc. PT evaluation Rehydration has occurred Nutritional supplementation Magnesium was checked and normal (3) Transaminitis: Patient with transaminitis Gallbladder ultrasound obtained showing gallstones. No obvious cholecystitis LFTs improving Hepatitis panel negative Check repeat LFTs tomorrow Secondary to recurrent vomiting will get a CT abdomen pelvis with contrast, IV and oral as she has a past history of gastric bypass/Sebastian-en-Y (4) Acute encephalopathy: Daughter reports patient has hallucinations and gets confused at times. This may be secondary to dehydration or medical illness or could be secondary to medication such as muscle relaxant or tramadol. At this point discontinue muscle relaxant Continue tramadol as needed Monitor placement closely for improvement. Note that she had a CT head with no acute abnormality in January Overall this appears improved (5) Pulmonary hypertension: Patient with severe pulmonary hypertension by her last echo. This may contribute to her hypotension Continue to hold diuretics Follow closely to make sure no fluid overload occurs Continue oxygen at 2 L, titrate as needed Overall this may be difficult to treat with ongoing smoking and severe COPD (6) COPD (chronic obstructive pulmonary disease): Budesonide twice daily DuoNeb every 6 hours (7) Atrial fibrillation: Patient with 1 episode of atrial fibrillation, following a drug-eluting stent in 2019. The episode was brief. Secondary to extensive bruising, concurrently being on Plavix, will reduce her Eliquis dose to 2.5 mg twice daily. Anticoagulant can still be indicated in patients with severe pulmonary hypertension (8) Acquired hypothyroidism: TSH is elevated. Increase levothyroxine to 125 mcg (9) Severe protein-calorie malnutrition: Encourage p.o. intake. Changed to regular diet. Nutritional supplement 3 times daily with meals (10) Nausea and vomiting: Nausea treatment will occur Initiate Protonix twice daily Gallbladder ultrasound gallstones but no cholecystitis She has vomited in the past. Check CT scan as above Qualifiers: Vomiting type: unspecified Qualified Code(s): R11.2 - Nausea with vomiting, unspecified (11) Mild dehydration: Dehydration has resolved with fluids Plan Hypotension, continue midodrine, fluids. Add fludrocortisone. Cortisol level has been checked previously and normal Abnormal urine. Recheck. Significant amount of squamous epithelials. Multiple other medical problems as outlined in past medical history Allow natural Apixaban will be used for DVT prophylaxis Attestations 2 Medical Necessity Statement*: At this point needs continued monitoring, for evaluation of vomiting Coding Level of Care Code Acute Code for Chg Fwd Diagnoses Hypokalemia E87.6 Weakness R53.1 Transaminitis R74.01 Acute encephalopathy G93.40 Pulmonary hypertension I27.20 Chronic obstructive pulmonary disease with acute exacerbation J44.9 Atrial fibrillation I48.91 Acquired hypothyroidism E03.9 Severe protein-calorie malnutrition E43 Nausea and vomiting, unspecified vomiting type R11.2 Vomiting type: unspecified Mild dehydration E86.0
[2023-06-12] MEDS: fludrocortisone 0.1 mg Tablet PO (17:31)
[2023-06-12] MEDS: atorvastatin 40 mg Tablet PO (21:09)
[2023-06-13] VITALS (12 sets, daily range): BP systolic 95–130; BP diastolic 60–76; PULSE 70–95; RESP 16–18; TEMP 36.4–37; O2SAT 96–100
[2023-06-13 05:00] LABS: Basophils % 0.3 %; Eosinophils # 0.1 10^3/uL (0.0-0.8); Hematocrit 32.6 % (36-47); Lymphocytes # 2.4 10^3/uL (0.8-4.8); Lymphocytes % 37.1 %; Mean Corpuscular HGB Conc 32.2 g/dL (30-55); Mean Corpuscular Hemoglobin 34.3 pg (27-33); Mean Corpuscular Volume 106.5 fl (85-98); Mean Platelet Volume 12.3 fL (7.4-10.4); Monocytes # 0.6 10^3/uL (0.2-0.9); Monocytes % 9.7 %; Neutrophils # 3.21 10^3/uL (1.8-7.7); Neutrophils % 50.4 %; Nucleated Red Blood Cells % 0.3 %; Platelet Count 143 10^3/cmm (157-399); Red Blood Count 3.06 10^6/uL (3.85-5.65); Red Cell Distribution Width 19.9 % (12.1-15.1); White Blood Count 6.38 10^3/uL (3.29-11.43)
[2023-06-13 05:26] LABS: Alanine Aminotransferase 31 U/L (0-33); Albumin Level 2.3 g/dL (3.5-5.2); Alkaline Phosphatase 90 U/L (35-105); Anion Gap 11.6 (5-19); Aspartate Amino Transferase 48 U/L (0-32); Blood Urea Nitrogen 6 mg/dL (8-23); Calcium 7.6 mg/dL (8.5-10.5); Carbon Dioxide 24 mmol/L (22-29); Chloride 107 mmol/L (98-107); Globulin 2.3 g/dL (1.3-4.6); Glomerular Filtration Rate 55.3 mL/min (90-130); Glucose 64 mg/dL (65-115); Osmolality Calculated 284 mOsm/kg (285-295); Potassium 3.6 mmol/L (3.5-5.1); Sodium 139 mmol/L (136-145); Total Bilirubin 0.6 mg/dL (0.15-1.2); Total Protein 4.6 g/dL (6.6-8.7)
[2023-06-13] MEDS: clopidogrel 75 mg Tablet PO (05:38)
[2023-06-13] MEDS: levothyroxine 125 mcg Tablet PO (05:38)
--- NOTE | 2023-06-13 06:56 | PC.NURSE ---
Patient has repeat ua ordered but each time she voided tonight it contained stool.
[2023-06-13 08:26] LABS: Add Urine Microscopic? YES; Bilirubin Urine Neg (Negative); Blood Urine Neg (Negative); Glucose Urine UA Norm (Normal); Ketones Urine Negative (Negative); Leukocyte Esterase Urine 1+ (Negative); Nitrate Urine Positive (Negative); Protein Urine Neg (Negative); Urine Appearance Cloudy (CLEAR); Urine Color Yellow (Yellow); Urobilinogen Urine Norm (Negative); pH Urine 6 (5-7)
[2023-06-13 08:40] LABS: Add Urine Culture? Yes; Bacteria Urine 4+ /hpf; Mucus Urine 1+ /hpf; WBC Urine 80-100 /hpf (0-5)
--- NOTE | 2023-06-13 08:51 | P.PN_ITS ---
Subjective 2 Subjective: Peri is much more alert today. She relates that yesterday she was doing okay in the morning, but then developed some nausea and vomiting. She states she is nauseated today, but has not yet vomited. She is now having some loose stool. She states she just does not feel good today. Medications: Reviewed: Yes Vitals/I&O/Wt Last Vital Signs Temp 97.5 F L 06/13/23 07:37 Pulse 95 06/13/23 07:37 Resp 17 06/13/23 07:37 BP 104/76 06/13/23 07:37 Pulse Ox 99 06/13/23 07:37 O2 Del Method Room Air 06/13/23 07:37 O2 Flow Rate 2 06/13/23 02:00 06/12/23 06/13/23 06/13/23 22:59 06:59 14:59 Intake Total 1240 / 1240 240 / 1480 120 / 120 Output Total 300 / 300 300 / 600 150 / 150 Balance 940 / 940 -60 / 880 -30 / -30 Weight last 48 hrs Weight 67.16 kg Weight 67.16 kg Weight 67.16 kg Physical Exam 2 Narrative: General exam no distress Neck is supple no lymphadenopathy thyromegaly Cardiovascular regular rate and rhythm, no murmur Lungs diminished breath sounds bilaterally. No wheezes Abdomen is soft scaphoid with positive bowel sounds. No obvious organomegaly. Some global tenderness Extremities no cyanosis clubbing or edema. Some bandages are present on the left foot but no evidence of erythema or infection Data 06/13/23 04:42 06/13/23 04:42 Other Labs: CT abdomen and pelvis demonstrates no bowel obstruction, large gallstone, mild prominence of common bile duct A&P Assessment and plan (1) Hypokalemia: Patient presents as a direct admission from the primary care office with weakness. Hypokalemia is found. Potassium was supplemented Potassium is now normal (2) Weakness: Patient significantly weak. This is multifactorial. This may be is from her significant COPD, pulmonary hypertension, hypokalemia, dehydration, etc. PT evaluation Rehydration has occurred Nutritional supplementation Magnesium was checked and normal She is still significantly weak Repeat urinalysis is now been reported. Question UTI. Rocephin will be started. Urine culture obtained. (3) Transaminitis: Patient with transaminitis Gallbladder ultrasound obtained showing gallstones. No obvious cholecystitis LFTs significantly improved Hepatitis panel negative Check repeat LFTs tomorrow Secondary to recurrent vomiting will get a CT abdomen pelvis with contrast, IV and oral as she has a past history of gastric bypass/Sebastian-en-Y. This was done yesterday with results as above. Patient is now having diarrhea. Will send C. difficile and stool studies. (4) Acute encephalopathy: Daughter reports patient has hallucinations and gets confused at times. This may be secondary to dehydration or medical illness or could be secondary to medication such as muscle relaxant or tramadol. At this point discontinue muscle relaxant Continue tramadol as needed Monitor placement closely for improvement. Note that she had a CT head with no acute abnormality in January Overall this appears improved. No obvious hallucinations in the hospital (5) Pulmonary hypertension: Patient with severe pulmonary hypertension by her last echo. This may contribute to her hypotension Continue to hold diuretics Follow closely to make sure no fluid overload occurs Continue oxygen at 2 L, titrate as needed Overall this may be difficult to treat with ongoing smoking and severe COPD (6) COPD (chronic obstructive pulmonary disease): Budesonide twice daily DuoNeb every 6 hours (7) Atrial fibrillation: Patient with 1 episode of atrial fibrillation, following a drug-eluting stent in 2019. The episode was brief. Secondary to extensive bruising, concurrently being on Plavix, will reduce her Eliquis dose to 2.5 mg twice daily. Anticoagulant can still be indicated in patients with severe pulmonary hypertension (8) Acquired hypothyroidism: TSH is elevated. Levothyroxine was increased to 125 mcg (9) Severe protein-calorie malnutrition: Encourage p.o. intake. Changed to regular diet. Nutritional supplement 3 times daily with meals (10) Nausea and vomiting: Nausea treatment will occur Continue Protonix twice daily Gallbladder ultrasound gallstones but no cholecystitis CT scan as above Now with diarrhea, stool studies and C. difficile With this recurring, she is not appropriate to discharge. She will have recurrent dehydration. Needs continued fluids, further exploration. Will change to regular admission. Qualifiers: Vomiting type: unspecified Qualified Code(s): R11.2 - Nausea with vomiting, unspecified (11) Mild dehydration: Dehydration has resolved with fluids Plan Hypotension, continue midodrine, fluids. Add fludrocortisone. Cortisol level has been checked previously and normal. This is improved UTI, Rocephin initiated Multiple other medical problems as outlined in past medical history Allow natural Apixaban will be used for DVT prophylaxis Attestations 2 Medical Necessity Statement*: Needs continued hospitalization secondary to nausea and vomiting, UTI, hypotension Diagnoses Hypokalemia E87.6 Weakness R53.1 Transaminitis R74.01 Acute encephalopathy G93.40 Pulmonary hypertension I27.20 Chronic obstructive pulmonary disease with acute exacerbation J44.9 Atrial fibrillation I48.91 Acquired hypothyroidism E03.9 Severe protein-calorie malnutrition E43 Nausea and vomiting, unspecified vomiting type R11.2 Vomiting type: unspecified Mild dehydration E86.0 Time Spent (min) 24
[2023-06-13] MEDS: budesonide 0.5 mg/2 mL Neb INHALATION ×2 (09:43→21:28)
[2023-06-13] MEDS: ipratropium-albuterol 3 mL Neb INHALATION ×2 (09:43→21:28)
[2023-06-13] MEDS: pantoprazole DR 40 mg Tablet PO ×2 (10:08→17:52)
[2023-06-13] MEDS: midodrine 5 mg TABLET 10 MG PO ×3 (10:08→20:37)
[2023-06-13] MEDS: folic acid 1 mg Tablet PO (10:08)
[2023-06-13] MEDS: gabapentin 300 mg Capsule PO ×2 (10:09→17:52)
--- NOTE | 2023-06-13 10:27 | PC.CHAP ---
Pastoral Care Encounter/Spiritual Assessment Type of Contact [] Declined mirror department supervisor visit [] Patient/Family/Request visit [] Outpatient visit [x] Follow-up visit [] Physician referral [] Code/Alert [x] Routine visit [] Staff referral [] Actively dying [] Patient sleeping [] Family support [] [] Out of room [] Palliative care [] [] Receiving care in room [] Pre-surgical visit [] Trauma [] Long length of stay [] ICU visit [] Other: Relational/Emotional Strength [] Patient feels connected with others/family/visitors/staff [] Distress [] Loneliness/isolation [] Abandonment Spirituality of Patient [] Person of Darline [] Attends Buddhist of their Darline [] Believes in Prayer [] Reads Bible or Islam materials [] There are Spiritual issues to be addressed Correctional Treatment Specialist Interventions [] Prayer [] Active listening [] Non-anxious presence [] Spiritual/emotional support [] Crisis/trauma care [] Spiritual counseling [] Bereavement support [] Provided bereavement packet [] Provided Bible/devotional materials [] Provided toy/stuffed animal, coloring book to patient or family member [] Provided Communion [] Anointing/[place] [] Salvation [] Completed spiritual assessment [] Other: Impact on Illness or Injury [] Angry [] Fearful [] Anxious [] Often cries [] Exhaustion [] Unable to work [] Unable to attend baptist [] Unable to walk/stand [] Unable to read [] Unable to drive [] Unable to eat/drink [] Unable to sleep [] Unable to be with family [] Patient intubated [] Other: Summary Follow-up visit Time spent with patient 5 mins
[2023-06-13] MEDS: apixaban 5 mg Tablet 2.5 MG PO ×2 (10:31→20:37)
[2023-06-13] MEDS: fludrocortisone 0.1 mg Tablet PO (10:31)
[2023-06-13] MEDS: cefTRIAXone 1,000 MG in sodium chloride 0.9% (plus) 50 ML 100 MG IV (10:32)
[2023-06-13 12:42] LABS: Influenza A by IFA negative (Negative); Influenza B by IFA negative (Negative)
[2023-06-13] MEDS: sodium chloride 0.9% 1,000 ML 50 ML IV (17:52)
[2023-06-13] MEDS: atorvastatin 40 mg Tablet PO (20:37)
[2023-06-14] MEDS: TRAMadol 50 mg Tablet PO (03:55)
[2023-06-14 04:00] VITALS: BP 98/64; PULSE 82; RESP 17; TEMP 36.6; O2SAT 100
[2023-06-14 04:52] LABS: Basophils % 0.5 %; Eosinophils # 0.1 10^3/uL (0.0-0.8); Eosinophils % 1.7 %; Hematocrit 31.3 % (36-47); Lymphocytes # 2.8 10^3/uL (0.8-4.8); Lymphocytes % 42.3 %; Mean Corpuscular HGB Conc 32.3 g/dL (30-55); Mean Corpuscular Hemoglobin 33.8 pg (27-33); Mean Corpuscular Volume 104.7 fl (85-98); Mean Platelet Volume 12.2 fL (7.4-10.4); Monocytes # 0.6 10^3/uL (0.2-0.9); Monocytes % 9.5 %; Neutrophils # 2.99 10^3/uL (1.8-7.7); Neutrophils % 45.7 %; Nucleated Red Blood Cells % 0 %; Platelet Count 132 10^3/cmm (157-399); Red Blood Count 2.99 10^6/uL (3.85-5.65); Red Cell Distribution Width 19.6 % (12.1-15.1); White Blood Count 6.53 10^3/uL (3.29-11.43)
[2023-06-14 05:19] LABS: Alanine Aminotransferase 28 U/L (0-33); Albumin Level 2.2 g/dL (3.5-5.2); Alkaline Phosphatase 85 U/L (35-105); Anion Gap 12.3 (5-19); Aspartate Amino Transferase 41 U/L (0-32); Blood Urea Nitrogen 5 mg/dL (8-23); Calcium 7.6 mg/dL (8.5-10.5); Carbon Dioxide 23 mmol/L (22-29); Chloride 108 mmol/L (98-107); Globulin 2.3 g/dL (1.3-4.6); Glomerular Filtration Rate 62.5 mL/min (90-130); Glucose 67 mg/dL (65-115); Osmolality Calculated 286 mOsm/kg (285-295); Potassium 3.3 mmol/L (3.5-5.1); Sodium 140 mmol/L (136-145); Total Bilirubin 0.6 mg/dL (0.15-1.2); Total Protein 4.5 g/dL (6.6-8.7)
[2023-06-14] MEDS: levothyroxine 125 mcg Tablet PO (06:13)
[2023-06-14] MEDS: clopidogrel 75 mg Tablet PO (06:13)
[2023-06-14 06:42] VITALS: PULSE 82
[2023-06-14 07:31] VITALS: BP 114/75; PULSE 81; RESP 18; TEMP 36.7; O2SAT 100
--- NOTE | 2023-06-14 08:49 | PC.CHAP ---
Pastoral Care Encounter/Spiritual Assessment Type of Contact [] Declined loft worker apprentice visit [] Patient/Family/Request visit [] Outpatient visit [] Follow-up visit [] Physician referral [] Code/Alert [] Routine visit [] Staff referral [] Actively dying [] Patient sleeping [] Family support [] [] Out of room [] Palliative care [] [] Receiving care in room [] Pre-surgical visit [] Trauma [] Long length of stay [] ICU visit [] Other: Relational/Emotional Strength [] Patient feels connected with others/family/visitors/staff [] Distress [] Loneliness/isolation [] Abandonment Spirituality of Patient [] Person of Darline [] Attends Advent of their Darline [] Believes in Prayer [] Reads Bible or Islam materials [] There are Spiritual issues to be addressed Manager Workers Compensation Interventions [] Prayer [] Active listening [] Non-anxious presence [] Spiritual/emotional support [] Crisis/trauma care [] Spiritual counseling [] Bereavement support [] Provided bereavement packet [] Provided Bible/devotional materials [] Provided toy/stuffed animal, coloring book to patient or family member [] Provided Communion [] Anointing/[place] [] Salvation [] Completed spiritual assessment [] Other: Impact on Illness or Injury [] Angry [] Fearful [] Anxious [] Often cries [] Exhaustion [] Unable to work [] Unable to attend religious [] Unable to walk/stand [] Unable to read [] Unable to drive [] Unable to eat/drink [] Unable to sleep [] Unable to be with family [] Patient intubated [] Other: Summary Time spent with patient
[2023-06-14] MEDS: pantoprazole DR 40 mg Tablet PO (10:34)
[2023-06-14] MEDS: folic acid 1 mg Tablet PO (10:34)
[2023-06-14] MEDS: gabapentin 300 mg Capsule PO (10:34)
[2023-06-14] MEDS: midodrine 5 mg TABLET 10 MG PO (10:34)
[2023-06-14] MEDS: fludrocortisone 0.1 mg Tablet PO (10:34)
[2023-06-14] MEDS: cefTRIAXone 1,000 MG in sodium chloride 0.9% (plus) 50 ML 100 MG IV (10:35)
--- NOTE | 2023-06-14 10:41 | P.DS_ITS ---
Discharge Providers Date of Admission: 06/13/23 08:57 Date of Discharge: June 14, 2023 Attending Provider at Admission: José Miguel Farrell MD Attending Provider at Discharge: José Miguel Farrell MD Primary Care Provider: Doug Allen DO Diagnoses at Discharge Discharge Diagnosis (1) Hypokalemia: Status: Inactive (2) Weakness: Status: Acute (3) Transaminitis: Status: Acute (4) Acute encephalopathy: Status: Acute (5) Pulmonary hypertension: Status: Acute (6) COPD (chronic obstructive pulmonary disease): Status: Acute (7) Atrial fibrillation: Status: Resolved Permanent problem details: Newly diagnosed (however per patient's history she was told about it even in the past) (8) Acquired hypothyroidism: Status: Acute (9) Severe protein-calorie malnutrition: Status: Acute (10) Nausea and vomiting: Status: Acute Qualifiers: Vomiting type: unspecified Qualified Code(s): R11.2 - Nausea with vomiting, unspecified (11) Mild dehydration: Status: Inactive Reason for Visit Reason for Visit: Dehydration / Resp Distress / Weight Loss Discharge Data Studies Completed and Pending Completed Studies During Hospitalization Category Date Time Status CT abdomen pelvis w con* [id number] Routine Cat Scan 06/12/23 11:07 Completed XR chest 1V portable [id number] Routine Exams 06/11/23 14:04 Completed US gall bladder [id number] Routine Ultrasound 06/11/23 16:38 Completed Pending at discharge Category Date Time Status COVID OZH [Coronavirus PCR] Routine Lab 06/13/23 10:28 Received Clostridium Difficile PCR Routine Lab 06/13/23 08:34 Ordered Stool Culture - Enteric [Salmonella / Shigella / Campy] Lab 06/13/23 13:05 Received Routine Stool WBC [Lactoferrin] Routine Lab 06/13/23 08:35 Ordered Urine Culture Stat Lab 06/13/23 08:00 Received Laboratory Results WBC 6.53 10^3/uL (3.29-11.43) 06/14/23 04:43 RBC 2.99 10^6/uL (3.85-5.65) L 06/14/23 04:43 Hgb 10.10 g/dL (11.27-16.99) L 06/14/23 04:43 Hct 31.3 % (36-47) L 06/14/23 04:43 MCV 104.7 fl (85-98) H 06/14/23 04:43 MCH 33.8 pg (27-33) H 06/14/23 04:43 MCHC 32.3 g/dL (30-55) 06/14/23 04:43 RDW 19.6 % (12.1-15.1) H 06/14/23 04:43 Plt Count 132 10^3/cmm (157-399) L 06/14/23 04:43 MPV 12.2 fL (7.4-10.4) H 06/14/23 04:43 Neut % (Auto) 45.7 % 06/14/23 04:43 Lymph % (Auto) 42.3 % 06/14/23 04:43 [place] % (Auto) 9.5 % 06/14/23 04:43 Eos % (Auto) 1.7 % 06/14/23 04:43 Baso % (Auto) 0.5 % 06/14/23 04:43 Neut # (Auto) 2.99 10^3/uL (1.8-7.7) 06/14/23 04:43 Lymph # (Auto) 2.8 10^3/uL (0.8-4.8) 06/14/23 04:43 [place] # (Auto) 0.6 10^3/uL (0.2-0.9) 06/14/23 04:43 Eos # (Auto) 0.1 10^3/uL (0.0-0.8) 06/14/23 04:43 Baso # (Auto) 0.0 10^3/uL (0.0-0.1) 06/14/23 04:43 Nucleated RBC % (auto) 0 % 06/14/23 04:43 Nucleated RBCs # 0.0 /100WBC 06/14/23 04:43 Sodium 140 mmol/L (136-145) 06/14/23 04:43 Potassium 3.3 mmol/L (3.5-5.1) L 06/14/23 04:43 Chloride 108 mmol/L (98-107) H 06/14/23 04:43 Carbon Dioxide 23 mmol/L (22-29) 06/14/23 04:43 Anion Gap 12.3 (5-19) 06/14/23 04:43 BUN 5 mg/dL (8-23) L 06/14/23 04:43 Creatinine 0.9 mg/dL (0.5-0.9) 06/14/23 04:43 GFR Calculation 62.5 mL/min (90-130) L 06/14/23 04:43 Glucose 67 mg/dL (65-115) 06/14/23 04:43 Estimat Average Glucose 77 06/11/23 15:21 Hemoglobin A1c 4.3 % (4.0-6.0) 06/11/23 15:21 Calculated Osmolality 286 mOsm/kg (285-295) 06/14/23 04:43 Calcium 7.6 mg/dL (8.5-10.5) L 06/14/23 04:43 Magnesium 1.7 mg/dL (1.7-2.3) 06/12/23 07:43 Total Bilirubin 0.6 mg/dL (0.15-1.2) 06/14/23 04:43 AST 41 U/L (0-32) H 06/14/23 04:43 ALT 28 U/L (0-33) 06/14/23 04:43 Alkaline Phosphatase 85 U/L (35-105) 06/14/23 04:43 NT-Pro-B Natriuret Pep 8875 pg/mL (0-125) H 06/11/23 15:21 Total Protein 4.5 g/dL (6.6-8.7) L 06/14/23 04:43 Albumin 2.2 g/dL (3.5-5.2) L 06/14/23 04:43 Globulin 2.3 g/dL (1.3-4.6) 06/14/23 04:43 Vitamin B12 494 pg/mL (232-1245) 06/11/23 15:21 Folate 3.9 ng/mL (4.8-37.3) L 06/11/23 15:21 TSH 14.00 uIU/mL (0.27-4.20) H 06/11/23 15:21 Urine Color Yellow (Yellow) 06/13/23 08:00 Urine Appearance Cloudy (CLEAR) A 06/13/23 08:00 Urine pH 6 (5-7) 06/13/23 08:00 Ur Specific [place] 1.020 (1.005-1.030) 06/13/23 08:00 Urine Protein Neg (Negative) 06/13/23 08:00 Urine Glucose (UA) Norm (Normal) 06/13/23 08:00 Urine Ketones Negative (Negative) 06/13/23 08:00 Urine Blood Neg (Negative) 06/13/23 08:00 Urine Nitrate Positive (Negative) H 06/13/23 08:00 Urine Bilirubin Neg (Negative) 06/13/23 08:00 Urine Urobilinogen Norm mg/dL (Negative) 06/13/23 08:00 Ur Leukocyte Esterase 1+ (Negative) H 06/13/23 08:00 Urine RBC 5-10 /hpf (0-2) H 06/13/23 08:00 Urine WBC 80-100 /hpf (0-5) H 06/13/23 08:00 Ur Squamous Epith Cells 5-10 /hpf (0-5) H 06/13/23 08:00 Ur Transition Epith Cell 10-15 /hpf 06/12/23 04:42 Calcium Oxalate Crystal 5-10 /hpf H 06/12/23 04:42 Amorphous Sediment Not Reportable 06/13/23 08:00 Urine Bacteria 4+ /hpf (NONE) H 06/13/23 08:00 Hyaline Casts 0-4 /lpf H 06/12/23 04:42 Urine Mucus 1+ /hpf 06/13/23 08:00 Hepatitis A IgM Ab Non-reactive (Nonreactive) 06/11/23 15:21 Hep Bs Antigen Non-reactive (Nonreactive) 06/11/23 15:21 Hep B Core IgM Ab Non-reactive (Nonreactive) 06/11/23 15:21 Hepatitis C Antibody Non-reactive (Nonreactive) 06/11/23 15:21 Influenza Type A Ag negative (Negative) 06/13/23 10:28 Influenza Type B Ag negative (Negative) 06/13/23 10:28 Vitals Last Vital Signs Temp 98.1 F 06/14/23 07:31 Pulse 81 06/14/23 07:31 Resp 18 06/14/23 07:31 BP 114/75 06/14/23 07:31 Pulse Ox 100 06/14/23 07:31 O2 Del Method Nasal Cannula 06/14/23 08:00 O2 Flow Rate 2 06/14/23 02:00 Discharge Plan Discharge Patient Disposition: Home Condition: Stable Prescriptions: New Eliquis 5 mg Tablet 2.5 mg PO BID@0900,2100 Qty: 30 0RF folic acid 1 mg Tablet 1 mg PO DAILY Qty: 30 0RF fludrocortisone 0.1 mg Tablet 0.1 mg PO DAILY Qty: 30 0RF levothyroxine 125 mcg Tablet 125 mcg PO QAM Qty: 30 0RF gabapentin 300 mg Capsule 300 mg PO BID Qty: 60 0RF cefdinir 300 mg capsule 300 mg PO BID 5 Days Qty: 10 0RF Continued albuterol sulfate 90 mcg/actuation HFA aerosol inhaler 2 puff inhalation Q6H PRN (Reason: Shortness Of Breath) methenamine hippurate 1 gram tablet 1 g PO QAM Qty: 90 3RF ascorbic acid (vitamin C) [Vitamin C] 500 mg tablet 500 mg PO QAM Qty: 90 3RF Rx Instructions: TAKE WITH METHENAMINE tramadol 50 mg tablet 50 mg PO BID PRN (Reason: Pain) Qty: 60 2RF calcitriol 0.25 mcg capsule 0.25 mcg PO .ON MON,WED,FRI clopidogrel 75 mg tablet 75 mg PO QAM lidocaine-prilocaine 2.5-2.5 % cream See Rx Instructions .ROUTE .COMPLEX Rx Instructions: APPLY 2-3 GRAMS TOPICALLY TO AFFECTED AREA 3-4 TIMES PER DAY NEEDED nitroglycerin [Nitrostat] 0.4 mg Tablet, Sublingual 0.4 mg SUBLINGUAL Q5M PRN (Reason: Chest Pain) Rx Instructions: do not exceed 3 doses per episode omega-3 acid ethyl esters 1 gram capsule 3 cap PO DAILY fluticasone propionate 50 mcg/actuation spray,suspension 2 spray intranasal DAILY PRN (Reason: Allergy Symptoms) rosuvastatin 10 mg tablet 10 mg PO BEDTIME midodrine 10 mg tablet 10 mg PO TID lansoprazole 30 mg capsule,delayed release(DR/EC) 30 mg PO DAILY Discontinued tizanidine 4 mg tablet 4 mg PO Q6H PRN (Reason: Muscle Spasm) Qty: 90 3RF doxycycline hyclate 100 mg tablet 100 mg PO BID 10 Days Qty: 20 0RF Eliquis 5 mg tablet 5 mg PO BID Qty: 180 3RF gabapentin 300 mg capsule See Rx Instructions .ROUTE .COMPLEX Qty: 150 5RF Rx Instructions: 900mg po qam and 600mg po qpm levothyroxine 112 mcg tablet 112 mcg PO QAM mirtazapine 30 mg tablet 30 mg PO BEDTIME furosemide 40 mg tablet 40 mg PO QAM PRN (Reason: edema) Qty: 7 0RF prednisone 20 mg tablet 40 mg PO DAILY metoprolol succinate 25 mg tablet extended release 24 hr 25 mg PO BEDTIME Discharge Orders: Discharge Order (Routine); Ordered 06/14/23 Ordered By: José Miguel Farrell Referrals: Doug Allen DO [Primary Care Provider] - 06/19/23 10:30 am () Discharge Diet: Low Fat Discharge Activity: Increase activity as tolerated Patient Instructions: Levothyroxine (By mouth), Folic Acid (By mouth), Fludrocortisone Acetate (By mouth), Gabapentin (By mouth), Cefdinir (By mouth), Dehydration (DC), Altered Mental Status (GEN), Opioid Safety Activity Restrictions/Additional Instructions: Protocol medicine as prescribed Follow-up with Dr. Gannon 3 to 5 days Nutritional supplement 3 times daily Return for anhy concerns. Discharge Attestations Time Spent in Discharge Care*: greater than 30 min Quality Metrics Clinical Quality Measures [ No reported AMI, CVA or VTE this stay] Coding Level of Care Code Acute Code for Chg Fwd Diagnoses Hypokalemia E87.6 Weakness R53.1 Transaminitis R74.01 Acute encephalopathy G93.40 Pulmonary hypertension I27.20 Chronic obstructive pulmonary disease with acute exacerbation J44.9 Atrial fibrillation I48.91 Acquired hypothyroidism E03.9 Severe protein-calorie malnutrition E43 Nausea and vomiting, unspecified vomiting type R11.2 Vomiting type: unspecified Mild dehydration E86.0
--- NOTE | 2023-06-14 11:13 | PC.SOCIAL ---
IMM Update pg 2 of IMM updated and reviewed w/ patient. Copy provided and copy dated, initialed and placed in chart.
[2023-06-14] MEDS: apixaban 5 mg Tablet 2.5 MG PO (11:15)
[2023-06-14] MEDS: calcitriol 0.25 mcg Capsule PO (11:15)
[2023-06-14] MEDS: potassium chloride ER 20 mEq Tablet 40 MEQ PO (11:16)
[2023-06-14 11:41] LABS: Adenovirus Not Detected (NOT DETECT); Chlamydia Pneumoniae Not Detected (NOT DETECT); Coronavirus 229E,HKU1,NL63,OC4 Not Detected (NOT DETECT); Human Metapneumovirus Not Detected (NOT DETECT); Human Rhinovirus/Enterovirus Not Detected (NOT DETECT); Influenza A Not Detected (NOT DETECT); Influenza A H1 Not Detected (NOT DETECT); Influenza A H1-2009 Not Detected (NOT DETECT); Influenza A H3 Not Detected (NOT DETECT); Influenza B Not Detected (NOT DETECT); Mycoplasma Pneumoniae Not Detected (NOT DETECT); Parainfluenza Virus Type 1 Not Detected (NOT DETECT); Parainfluenza Virus Type 2 Not Detected (NOT DETECT); Parainfluenza Virus Type 3 Not Detected (NOT DETECT); Parainfluenza Virus Type 4 Not Detected (NOT DETECT); Respiratory Syncytial Virus A Not Detected (NOT DETECT); Respiratory Syncytial Virus B Not Detected (NOT DETECT)
[2023-06-14 11:44] LABS: SARS-COV-2 Detected (NOT DETECT)
--- NOTE | 2023-06-14 11:53 | PM.DCS ---
Discharge Providers Date of Admission: 06/13/23 08:57 Date of Discharge: June 14, 2023 Attending Provider at Admission: José Miguel Farrell MD Attending Provider at Discharge: José Miguel Farrell MD Primary Care Provider: Doug Allen DO Diagnoses at Discharge Discharge Diagnosis (1) Hypokalemia: Status: Inactive (2) Weakness: Status: Acute (3) Transaminitis: Status: Acute (4) Acute encephalopathy: Status: Acute (5) Pulmonary hypertension: Status: Acute (6) COPD (chronic obstructive pulmonary disease): Status: Acute (7) Atrial fibrillation: Status: Resolved Permanent problem details: Newly diagnosed (however per patient's history she was told about it even in the past) (8) Acquired hypothyroidism: Status: Acute (9) Severe protein-calorie malnutrition: Status: Acute (10) Nausea and vomiting: Status: Acute Qualifiers: Vomiting type: unspecified Qualified Code(s): R11.2 - Nausea with vomiting, unspecified (11) Mild dehydration: Status: Inactive Reason for Visit Reason for Visit: Dehydration / Resp Distress / Weight Loss Hospital Course Hospital Course Rosas is a 67-year-old white female who presented as a direct admit for weakness, vomiting, diarrhea. She was found to have acute kidney injury, dehydration, electrolyte abnormality. She also had some acute encephalopathy. Multiple sedating medications were discontinued. Fludrocortisone was added for chronic hypotension along with her midodrine which was continued. Potassium was supplemented. Dietary supplements were initiated. Gallbladder ultrasound, CT abdomen pelvis were obtained which demonstrated some gallstones but no evidence of cholecystitis. During her hospital stay she showed improvement, with improving strength, cognition, and ability to eat. At the end of the hospital stay at discharge, COVID test finally came back and she was noted to be COVID PCR positive. Secondary to the length of her symptoms, 5 to 7 days on admission it was not thought treatment for COVID would be useful. She was satting 100% on room air. Her family is given opportunity ask questions, as well as the patient, and they agreed with the plan. Physical Exam Narrative: General exam no distress Neck is supple Cardiovascular regular rate and rhythm Lungs clear Abdomen soft Extremities no cyanosis clubbing or edema. Discharge Data Studies Completed and Pending Completed Studies During Hospitalization Category Date Time Status CT abdomen pelvis w con* [id number] Routine Cat Scan 06/12/23 11:07 Completed XR chest 1V portable [id number] Routine Exams 06/11/23 14:04 Completed US gall bladder [id number] Routine Ultrasound 06/11/23 16:38 Completed Pending at discharge Category Date Time Status Clostridium Difficile PCR Routine Lab 06/13/23 08:34 Ordered Stool Culture - Enteric [Salmonella / Shigella / Campy] Lab 06/13/23 13:05 Received Routine Stool WBC [Lactoferrin] Routine Lab 06/13/23 08:35 Ordered Urine Culture Stat Lab 06/13/23 08:00 Results Laboratory Results WBC 6.53 10^3/uL (3.29-11.43) 06/14/23 04:43 RBC 2.99 10^6/uL (3.85-5.65) L 06/14/23 04:43 Hgb 10.10 g/dL (11.27-16.99) L 06/14/23 04:43 Hct 31.3 % (36-47) L 06/14/23 04:43 MCV 104.7 fl (85-98) H 06/14/23 04:43 MCH 33.8 pg (27-33) H 06/14/23 04:43 MCHC 32.3 g/dL (30-55) 06/14/23 04:43 RDW 19.6 % (12.1-15.1) H 06/14/23 04:43 Plt Count 132 10^3/cmm (157-399) L 06/14/23 04:43 MPV 12.2 fL (7.4-10.4) H 06/14/23 04:43 Neut % (Auto) 45.7 % 06/14/23 04:43 Lymph % (Auto) 42.3 % 06/14/23 04:43 [place] % (Auto) 9.5 % 06/14/23 04:43 Eos % (Auto) 1.7 % 06/14/23 04:43 Baso % (Auto) 0.5 % 06/14/23 04:43 Neut # (Auto) 2.99 10^3/uL (1.8-7.7) 06/14/23 04:43 Lymph # (Auto) 2.8 10^3/uL (0.8-4.8) 06/14/23 04:43 [place] # (Auto) 0.6 10^3/uL (0.2-0.9) 06/14/23 04:43 Eos # (Auto) 0.1 10^3/uL (0.0-0.8) 06/14/23 04:43 Baso # (Auto) 0.0 10^3/uL (0.0-0.1) 06/14/23 04:43 Nucleated RBC % (auto) 0 % 06/14/23 04:43 Nucleated RBCs # 0.0 /100WBC 06/14/23 04:43 Sodium 140 mmol/L (136-145) 06/14/23 04:43 Potassium 3.3 mmol/L (3.5-5.1) L 06/14/23 04:43 Chloride 108 mmol/L (98-107) H 06/14/23 04:43 Carbon Dioxide 23 mmol/L (22-29) 06/14/23 04:43 Anion Gap 12.3 (5-19) 06/14/23 04:43 BUN 5 mg/dL (8-23) L 06/14/23 04:43 Creatinine 0.9 mg/dL (0.5-0.9) 06/14/23 04:43 GFR Calculation 62.5 mL/min (90-130) L 06/14/23 04:43 Glucose 67 mg/dL (65-115) 06/14/23 04:43 Estimat Average Glucose 77 06/11/23 15:21 Hemoglobin A1c 4.3 % (4.0-6.0) 06/11/23 15:21 Calculated Osmolality 286 mOsm/kg (285-295) 06/14/23 04:43 Calcium 7.6 mg/dL (8.5-10.5) L 06/14/23 04:43 Magnesium 1.7 mg/dL (1.7-2.3) 06/12/23 07:43 Total Bilirubin 0.6 mg/dL (0.15-1.2) 06/14/23 04:43 AST 41 U/L (0-32) H 06/14/23 04:43 ALT 28 U/L (0-33) 06/14/23 04:43 Alkaline Phosphatase 85 U/L (35-105) 06/14/23 04:43 NT-Pro-B Natriuret Pep 8875 pg/mL (0-125) H 06/11/23 15:21 Total Protein 4.5 g/dL (6.6-8.7) L 06/14/23 04:43 Albumin 2.2 g/dL (3.5-5.2) L 06/14/23 04:43 Globulin 2.3 g/dL (1.3-4.6) 06/14/23 04:43 Vitamin B12 494 pg/mL (232-1245) 06/11/23 15: Folate 3.9 ng/mL (4.8-37.3) L 06/11/23 15: TSH 14.00 uIU/mL (0.27-4.20) H 06/11/23 15:21 Urine Color Yellow (Yellow) 06/13/23 08:00 Urine Appearance Cloudy (CLEAR) A 06/13/23 08:00 Urine pH 6 (5-7) 06/13/23 08:00 Ur Specific [place] 1.020 (1.005-1.030) 06/13/23 08:00 Urine Protein Neg (Negative) 06/13/23 08:00 Urine Glucose (UA) Norm (Normal) 06/13/23 08:00 Urine Ketones Negative (Negative) 06/13/23 08:00 Urine Blood Neg (Negative) 06/13/23 08:00 Urine Nitrate Positive (Negative) H 06/13/23 08:00 Urine Bilirubin Neg (Negative) 06/13/23 08:00 Urine Urobilinogen Norm mg/dL (Negative) 06/13/23 08:00 Ur Leukocyte Esterase 1+ (Negative) H 06/13/23 08:00 Urine RBC 5-10 /hpf (0-2) H 06/13/23 08:00 Urine WBC 80-100 /hpf (0-5) H 06/13/23 08:00 Ur Squamous Epith Cells 5-10 /hpf (0-5) H 06/13/23 08:00 Ur Transition Epith Cell 10-15 /hpf 06/12/23 04:42 Calcium Oxalate Crystal 5-10 /hpf H 06/12/23 04:42 Amorphous Sediment Not Reportable 06/13/23 08:00 Urine Bacteria 4+ /hpf (NONE) H 06/13/23 08:00 Hyaline Casts 0-4 /lpf H 06/12/23 04:42 Urine Mucus 1+ /hpf 06/13/23 08:00 Coronavirus 229E (PCR) Not detected (NOT DETECT) 06/13/23 10:28 Hepatitis A IgM Ab Non-reactive (Nonreactive) 06/11/23 15:21 Hep Bs Antigen Non-reactive (Nonreactive) 06/11/23 15:21 Hep B Core IgM Ab Non-reactive (Nonreactive) 06/11/23 15:21 Hepatitis C Antibody Non-reactive (Nonreactive) 06/11/23 15:21 Influenza Type A Ag negative (Negative) 06/13/23 10:28 Influenza Type B Ag negative (Negative) 06/13/23 10:28 SARS-CoV-2 (PCR) Detected (NOT DETECT) A 06/13/23 10:28 Vitals Last Vital Signs Temp 98.1 F 06/14/23 07:31 Pulse 81 06/14/23 07:31 Resp 18 06/14/23 07:31 BP 114/75 06/14/23 07:31 Pulse Ox 100 06/14/23 07:31 O2 Del Method Nasal Cannula 06/14/23 08:00 O2 Flow Rate 2 06/14/23 02:00 Discharge Plan Discharge Patient Disposition: Home Condition: Stable Prescriptions: New Eliquis 5 mg Tablet 2.5 mg PO BID@0900,2100 Qty: 30 0RF folic acid 1 mg Tablet 1 mg PO DAILY Qty: 30 0RF fludrocortisone 0.1 mg Tablet 0.1 mg PO DAILY Qty: 30 0RF levothyroxine 125 mcg Tablet 125 mcg PO QAM Qty: 30 0RF gabapentin 300 mg Capsule 300 mg PO BID Qty: 60 0RF cefdinir 300 mg capsule 300 mg PO BID 5 Days Qty: 10 0RF Continued albuterol sulfate 90 mcg/actuation HFA aerosol inhaler 2 puff inhalation Q6H PRN (Reason: Shortness Of Breath) methenamine hippurate 1 gram tablet 1 g PO QAM Qty: 90 3RF ascorbic acid (vitamin C) [Vitamin C] 500 mg tablet 500 mg PO QAM Qty: 90 3RF Rx Instructions: TAKE WITH METHENAMINE tramadol 50 mg tablet 50 mg PO BID PRN (Reason: Pain) Qty: 60 2RF calcitriol 0.25 mcg capsule 0.25 mcg PO .ON MON,WED,FRI clopidogrel 75 mg tablet 75 mg PO QAM lidocaine-prilocaine 2.5-2.5 % cream See Rx Instructions .ROUTE .COMPLEX Rx Instructions: APPLY 2-3 GRAMS TOPICALLY TO AFFECTED AREA 3-4 TIMES PER DAY NEEDED nitroglycerin [Nitrostat] 0.4 mg Tablet, Sublingual 0.4 mg SUBLINGUAL Q5M PRN (Reason: Chest Pain) Rx Instructions: do not exceed 3 doses per episode omega-3 acid ethyl esters 1 gram capsule 3 cap PO DAILY fluticasone propionate 50 mcg/actuation spray,suspension 2 spray intranasal DAILY PRN (Reason: Allergy Symptoms) rosuvastatin 10 mg tablet 10 mg PO BEDTIME midodrine 10 mg tablet 10 mg PO TID lansoprazole 30 mg capsule,delayed release(DR/EC) 30 mg PO DAILY Discontinued tizanidine 4 mg tablet 4 mg PO Q6H PRN (Reason: Muscle Spasm) Qty: 90 3RF doxycycline hyclate 100 mg tablet 100 mg PO BID 10 Days Qty: 20 0RF Eliquis 5 mg tablet 5 mg PO BID Qty: 180 3RF gabapentin 300 mg capsule See Rx Instructions .ROUTE .COMPLEX Qty: 150 5RF Rx Instructions: 900mg po qam and 600mg po qpm levothyroxine 112 mcg tablet 112 mcg PO QAM mirtazapine 30 mg tablet 30 mg PO BEDTIME furosemide 40 mg tablet 40 mg PO QAM PRN (Reason: edema) Qty: 7 0RF prednisone 20 mg tablet 40 mg PO DAILY metoprolol succinate 25 mg tablet extended release 24 hr 25 mg PO BEDTIME Discharge Orders: Discharge Order (Routine); Ordered 06/14/23 Ordered By: José Miguel Farrell Referrals: Doug Allen DO [Primary Care Provider] - 06/19/23 10:30 am () Discharge Diet: Low Fat Discharge Activity: Increase activity as tolerated Patient Instructions: Levothyroxine (By mouth), Folic Acid (By mouth), Fludrocortisone Acetate (By mouth), Gabapentin (By mouth), Cefdinir (By mouth), Dehydration (DC), Altered Mental Status (GEN), Opioid Safety Activity Restrictions/Additional Instructions: Protocol medicine as prescribed Follow-up with Dr. Gannon 3 to 5 days Nutritional supplement 3 times daily Return for anhy concerns. Discharge Attestations Time Spent in Discharge Care*: greater than 30 min Quality Metrics Clinical Quality Measures [ No reported AMI, CVA or VTE this stay] Coding Level of Care Code 95534 Total time (in minutes) for Discharge: 35 Diagnoses Hypokalemia E87.6 Weakness R53.1 Transaminitis R74.01 Acute encephalopathy G93.40 Pulmonary hypertension I27.20 Chronic obstructive pulmonary disease with acute exacerbation J44.9 Atrial fibrillation I48.91 Acquired hypothyroidism E03.9 Severe protein-calorie malnutrition E43 Nausea and vomiting, unspecified vomiting type R11.2 Vomiting type: unspecified Mild dehydration E86.0
[2023-06-14 13:04] VITALS: BP 112/75; PULSE 76; RESP 18; TEMP 36.6; O2SAT 100
[2023-06-14 14:24] VITALS: BP 112/75; PULSE 76; RESP 18; TEMP 36.6; O2SAT 100
== END 2023-06-14 13:50 | disposition home or self-care (01) | DRG 640 ==
PROVIDERS: Admitting Provider Internal Medicine; PCP Family Medicine; Visit Provider Internal Medicine
DX: U07.1 COVID-19 (principal); E87.6 Hypokalemia; E43 Unspecified severe protein-calorie malnutrition; G93.40 Encephalopathy, unspecified; N17.9 Acute kidney failure, unspecified; N39.0 Urinary tract infection, site not specified; I27.20 Pulmonary hypertension, unspecified; E86.0 Dehydration; I95.89 Other hypotension; K80.20 Calculus of gallbladder without cholecystitis without obstruction; R74.01 Elevation of levels of liver transaminase levels; Z68.26 Body mass index [BMI] 26.0-26.9, adult; E03.9 Hypothyroidism, unspecified; I48.91 Unspecified atrial fibrillation; F17.210 Nicotine dependence, cigarettes, uncomplicated; Z98.84 Bariatric surgery status; I25.2 Old myocardial infarction; E78.5 Hyperlipidemia, unspecified; G47.33 Obstructive sleep apnea (adult) (pediatric); I25.10 Atherosclerotic heart disease of native coronary artery without angina pectoris; I11.0 Hypertensive heart disease with heart failure; I50.9 Heart failure, unspecified; G47.00 Insomnia, unspecified; K21.9 Gastro-esophageal reflux disease without esophagitis; E11.42 Type 2 diabetes mellitus with diabetic polyneuropathy; L97.519 Non-pressure chronic ulcer of other part of right foot with unspecified severity; J44.1 Chronic obstructive pulmonary disease with (acute) exacerbation
CPT/HCPCS: 36415; 71045; 74177; 76705; 80053; 80074; 81001; 82607; 82746; 83036; 83735; 83880; 84443; 85025; 87045; 87077; 87086; 87186; 87427; 87449; 87635; 87804; 93005; 94640; 97163; 97530; G0378; G0379; J0696; J7030; J7626; Q9967

== ENCOUNTER 2023-06-23 16:16 | Inpatient (IN) | payer MEDICARE, MEDICAID, SELFPAY ==
[2023-06-23] VITALS (7 sets, daily range): BP systolic 70–133; BP diastolic 48–94; PULSE 86–101; RESP 16–25; TEMP 36.3; O2SAT 96–100; BMI 24.7
--- NOTE | 2023-06-23 17:56 | XRR_ITS ---
PROCEDURE INFORMATION: Exam: XR Chest Exam date and time: 06/23/2023 6:09 PM Age: 67 years old Clinical indication: Other: Weakness TECHNIQUE: Imaging protocol: Radiologic exam of the chest. Views: 1 view. COMPARISON: CR XR chest 1V portable [id number] 06/11/2023 3:47 PM FINDINGS: Lungs: Unremarkable. No consolidation. Pleural spaces: Unremarkable. No pleural effusion. No pneumothorax. Heart/Mediastinum: Unremarkable. No cardiomegaly. Bones/joints: Chronic degenerative changes of the shoulder joints, and vertebral bodies. XR/XR chest 1V portable [id number] IMPRESSION: No acute findings.
--- NOTE | 2023-06-23 17:59 | ED_ITS ---
HPI - Weakness 2 General: Chief complaint: Weakness Stated complaint: Weakness, cant eat/drink, N/V Time Seen by Provider: 06/23/23 16:21 Source: patient Mode of arrival: ambulatory Limitations: no limitations History of Present Illness: 67-year-old female who is very well-know n to the ER states she has been having increasing weakness over the last 2 days states she been having nausea vomiting diarrhea along with shortness of breath. Patient recently has gotten out of the hospital. She denies any fever denies any cough denies any pain anywhere. Associated symptoms: Reports nausea and vomiting; Denies chest pain, chills, dysuria, fever(s) or headache(s) Review of Systems 2 Const: Reports: change in appetite and malaise; Denies: fever(s), chills or body aches Eyes: Denies: blurry vision or eye discomfort ENMT: Denies: throat pain or dental pain Card: Denies: chest pain Resp: Reports: dyspnea GI: Reports: nausea, vomiting and diarrhea; Denies: abdominal pain : Denies: dysuria Musc: Denies: neck pain or back pain Skin/Breast: Denies: rash Neuro: Denies: headache(s) PFSH ED 2 PFSH: Medical History Neck injury Head injury due to trauma Fall with injury Hypotension Secondary hyperparathyroidism of renal origin Nonscarring hair loss Pain associated with defecation Family history of colon cancer requiring screening colonoscopy Diabetic neuropathy GERD (gastroesophageal reflux disease) Chronic rhinosinusitis Insomnia Diabetic peripheral neuropathy associated with type 2 diabetes mellitus Chronic kidney disease Cystitis cystica Coronary artery disease S/P extracorporeal shock wave therapy Renal calculus, left treated with ESWL with resolution Urolithiasis Recurrent UTI Tobacco abuse CHF (congestive heart failure) ASHD (arteriosclerotic heart disease) Diabetes 1.5, managed as type 2 CKD (chronic kidney disease) Hyperlipidemia EDNA (obstructive sleep apnea) HTN (hypertension) Obesity COPD (chronic obstructive pulmonary disease) Myocardial infarction Surgical History H/O bariatric surgery S/P angioplasty with stent Family History Mother , at age 86 CAD (coronary artery disease) Diabetes Myocardial infarction Hypertension Father , AGE 72 Diabetes CAD (coronary artery disease) Cancer LUNG Brother Diabetes CAD (coronary artery disease) Hypertension Sister Diabetes Social History Smoking and tobacco/nicotine status: current every day tobacco/nicotine user cigarettes Alcohol intake: never Adopted: No Caregiver/support person: No Marital status: Legally Current occupational status: retired and disabled Current gender identity: Female Female Reproductive History: Spontaneous abortions: No Physical Exam 2 Const: COMMON NORMALS: patient oriented x3 HENMT: COMMON NORMALS: normocephalic and atraumatic HEAD & SCALP: n ormocephalic and atraumatic Eye: COMMON NORMALS: Equal, round and reactive pupils present and EOMs intact bilaterally PUPIL: Yes Equal, round and reactive pupils present Neck/C-Spine: COMMON NORMALS: full ROM and supple Chest: COMMONS NORMALS: normal inspection of the chest and normal palpation of entire chest wall Resp: COMMON NORMALS: normal respiratory effort, No retractions, No use of accessory muscles and clear to auscultation bilaterally AUSCULTATION: clear to auscultation bilaterally Cardio: COMMON NORMALS: regular rate, regular rhythm and No murmurs present (Cardio) RATE: regular rate RHYTHM: regular rhythm GI: COMMON NORMALS: Normal to inspection, nondistended, normoactive bowel sounds present, Soft to palpation, non-tender and no masses PALPATION: Yes Soft to palpation Extremity: COMMON NORMALS: normal to inspection and full ROM Neuro: COMMON NORMALS: patient oriented x3, moves all extremities and no focal motor deficits Psych: COMMON NORMALS: mental status grossly normal, Normal thought process present and cooperative THOUGHT PROCESS: Normal thought process present Skin: COMMON NORMALS: no rashes or lesions noted and no wounds GENERAL SKIN EXAM: no rashes or lesions noted Course 2 Vital Signs: Vital signs: Vital Signs Pulse Rate 86 06/23/23 19:21 Respiratory Rate 16 06/23/23 19:21 Blood Pressure 129/94 06/23/23 19:21 Pulse Oximetry 96 06/23/23 19:21 Oxygen Delivery Me thod Room Air 06/23/23 19:21 MDM - Weakness Medical Decision Making Patient presents here with weakness she is hypokalemic along with hypomagnesia likely causing her weakness patient's been here frequently I did speak to her and she states she also would like to be placed in a [facility] will admit to replace her magnesium along with potassium at this time. Medical Records I reviewed the patient's medical records. Lab Data I reviewed the patient's lab results. 06/23/23 16:48 06/23/23 16:48 Radiology Impressions Chest X-Ray 06/23/23 17:56 IMPRESSION: No acute findings. Laboratory Results WBC 10.93 10^3/uL (3.29-11.43) 06/23/23 16:48 RBC 3.59 10^6/uL (3.85-5.65) L 06/23/23 16:48 Hgb 12.20 g/dL (11.27-16.99) 06/23/23 16:48 Hct 36.4 % (36-47) 06/23/23 16:48 MCV 101.4 fl (85-98) H 06/23/23 16:48 MCH 34.0 pg (27-33) H 06/23/23 16:48 MCHC 33.5 g/dL (30-55) 06/23/23 16:48 RDW 18.9 % (12.1-15.1) H 06/23/23 16:48 Plt Count 233 10^3/cmm (157-399) 06/23/23 16:48 MPV 12.6 fL (7.4-10.4) H 06/23/23 16:48 Neut % (Auto) 70.9 % 06/23/23 16:48 Lymph % (Auto) 23.1 % 06/23/23 16:48 [place] % (Auto) 4.9 % 06/23/23 16:48 Eos % (Auto) 0.2 % 06/23/23 16:48 Baso % (Auto) 0.2 % 06/23/23 16:48 Neut # (Auto) 7.74 10^3/uL (1.8-7.7) H 06/23/23 16:48 Lymph # (Auto) 2.5 10^3/uL (0.8-4.8) 06/23/23 16:48 [place] # (Auto) 0.5 10^3/uL (0.2-0.9) 06/23/23 16:48 Eos # (Auto) 0.0 10^3/uL (0.0-0.8) 06/23/23 16:48 Baso # (Auto) 0.0 10^3/uL (0.0-0.1) 06/23/23 16:48 Nucleated RBC % (auto) 0.6 % 06/23/23 16:48 Nucleated RBCs # 0.1 /100WBC 06/23/23 16:48 Sodium 136 mmol/L (136-145) 06/23/23 16:48 Potassium 2.4 mmol/L (3.5-5.1) L* 06/23/23 16:48 Chloride 97 mmol/L (98-107) L 06/23/23 16:48 Carbon Dioxide 18 mmol/L (22-29) L 06/23/23 16:48 Anion Gap 23.4 (5-19) H 06/23/23 16:48 BUN 13 mg/dL (8-23) 06/23/23 16:48 Creatinine 1.1 mg/dL (0.5-0.9) H 06/23/23 16:48 GFR Calculation 49.5 mL/min (90-130) L 06/23/23 16:48 Glucose 96 mg/dL (65-115) 06/23/23 16:48 Calculated Osmolality 282 mOsm/kg (285-295) L 06/23/23 16:48 Calcium 8.4 mg/dL (8.5-10.5) L 06/23/23 16:48 Magnesium 1.6 mg/dL (1.7-2.3) L 06/23/23 16:48 Total Bilirubin 0.9 mg/dL (0.15-1.2) 06/23/23 16:48 AST 42 U/L (0-32) H 06/23/23 16:48 ALT 26 U/L (0-33) 06/23/23 16:48 Alkaline Phosphatase 99 U/L (35-105) 06/23/23 16:48 Total Protein 6.1 g/dL (6.6-8.7) L 06/23/23 16:48 Albumin 2.9 g/dL (3.5-5.2) L 06/23/23 16:48 Globulin 3.2 g/dL (1.3-4.6) 06/23/23 16:48 TSH 10.37 uIU/mL (0.27-4.20) H 06/23/23 16:48 Urine Color [place] (Yellow) 06/23/23 18:37 Urine Appearance Clear (CLEAR) 06/23/23 18:37 Urine pH 7 (5-7) 06/23/23 18:37 Ur Specific [place] 1.010 (1.005-1.030) 06/23/23 18:37 Urine Protein Trace (Negative) 06/23/23 18:37 Urine Glucose (UA) Trace (Normal) H 06/23/23 18:37 Urine Ketones Negative (Negative) 06/23/23 18:37 Urine Blood Neg (Negative) 06/23/23 18:37 Urine Nitrate Negative (Negative) 06/23/23 18:37 Urine Bilirubin 1+ (Negative) H 06/23/23 18:37 Urine Urobilinogen Norm mg/dL (Negative) 06/23/23 18:37 Ur Leukocyte Esterase Negative (Negative) 06/23/23 18:37 Urine RBC 0-4 /hpf (0-2) H 06/23/23 18:37 Urine WBC 5-10 /hpf (0-5) H 06/23/23 18:37 Ur Squamous Epith Cells 0-4 /hpf (0-5) H 06/23/23 18:37 Amorphous Sediment 1+ /hpf 06/23/23 18:37 Urine Bacteria 1+ /hpf (NONE) H 06/23/23 18:37 Urine Mucus 1+ /hpf 06/23/23 18:37 Urine Yeast None /hpf 06/23/23 18:37 All radiology interpretation(s) finalized by discharge EKG Data EKG 1: I personally reviewed and interpreted this EKG as follows: EKG interpretation date: 06/23/23 EKG interpretation time: 18:04 Interpretation: nsr hr [address] or t wave abnormalities qrs 108 qtc 408 Discharge Plan Discharge Patient Disposition: Admitted As Inpatient Clinical Impression: Hypokalemia, Weakness, Hypomagnesemia Condition: Stable Coding Level of Care Code ED Inspector Firearms for Chg Alexsi
--- NOTE | 2023-06-23 18:04 | ECG_ITS ---
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 Measurements Intervals [place] Rate: 92 P: 57 OK: 139 QRS: -40 QRSD: 108 T: 93 QT: 359 QTc: 444 Interpretive Statements SINUS RHYTHM WITH FREQUENT SUPRAVENTRICULAR PREMATURE COMPLEXES INFERIOR MYOCARDIAL INFARCTION , PROBABLY OLD [40+ ms Q WAVE AND/OR ST/T ABNORMALITY IN II/aVF] PROBABLE ANTEROLATERAL MYOCARDIAL INFARCTION , OF INDETERMINATE AGE [35 ms Q WAVE IN I/aVL/V3-V6] Compared to ECG 06/11/2023 16:06:32 No significant changes Electronically Signed On 06-24-2023 8:36:06 REVIEW RN by Gaston Yuan M.D. [id number]
[2023-06-23 18:05] LABS: Basophils % 0.2 %; Eosinophils % 0.2 %; Hematocrit 36.4 % (36-47); Lymphocytes # 2.5 10^3/uL (0.8-4.8); Lymphocytes % 23.1 %; Mean Corpuscular HGB Conc 33.5 g/dL (30-55); Mean Corpuscular Volume 101.4 fl (85-98); Mean Platelet Volume 12.6 fL (7.4-10.4); Monocytes # 0.5 10^3/uL (0.2-0.9); Monocytes % 4.9 %; Neutrophils # 7.74 10^3/uL (1.8-7.7); Neutrophils % 70.9 %; Nucleated Red Blood Cells # 0.1 /100WBC; Nucleated Red Blood Cells % 0.6 %; Platelet Count 233 10^3/cmm (157-399); Red Blood Count 3.59 10^6/uL (3.85-5.65); Red Cell Distribution Width 18.9 % (12.1-15.1); White Blood Count 10.93 10^3/uL (3.29-11.43)
[2023-06-23] MEDS: sodium chloride 0.9% 1,000 ML 999 ML IV ×2 (18:09→22:02)
[2023-06-23] MEDS: ondansetron 2 mg/ML SDV 2 mL 4 MG IVP ×2 (18:09→22:02)
[2023-06-23 18:49] LABS: Alanine Aminotransferase 26 U/L (0-33); Albumin Level 2.9 g/dL (3.5-5.2); Alkaline Phosphatase 99 U/L (35-105); Blood Urea Nitrogen 13 mg/dL (8-23); Calcium 8.4 mg/dL (8.5-10.5); Carbon Dioxide 18 mmol/L (22-29); Chloride 97 mmol/L (98-107); Globulin 3.2 g/dL (1.3-4.6); Glomerular Filtration Rate 49.5 mL/min (90-130); Glucose 96 mg/dL (65-115); Osmolality Calculated 282 mOsm/kg (285-295); Sodium 136 mmol/L (136-145); Thyroid Stimulating Hormone 10.37 uIU/mL (0.27-4.20); Total Bilirubin 0.9 mg/dL (0.15-1.2); Total Protein 6.1 g/dL (6.6-8.7)
[2023-06-23 18:51] LABS: Anion Gap 23.4 (5-19); Aspartate Amino Transferase 42 U/L (0-32)
[2023-06-23 18:52] LABS: Potassium 2.4 mmol/L (3.5-5.1)
[2023-06-23 19:05] LABS: Blood Urine Neg (Negative); Glucose Urine UA Trace (Normal); Ketones Urine Negative (Negative); Nitrate Urine Negative (Negative); Protein Urine Trace (Negative); Urine Appearance Clear (CLEAR); Urine Color Amber (Yellow); pH Urine 7 (5-7)
[2023-06-23 19:06] LABS: Add Urine Microscopic? YES; Bilirubin Urine 1+ (Negative); Leukocyte Esterase Urine Negative (Negative); Urobilinogen Urine Norm (Negative)
[2023-06-23 19:14] LABS: Magnesium 1.6 mg/dL (1.7-2.3)
[2023-06-23] MEDS: lidocaine 1% 5 ML in potassium chloride premix 100 ML 52.5 ML IV (19:18)
[2023-06-23] MEDS: potassium chloride ER 20 mEq Tablet 40 MEQ PO ×2 (19:20→22:29)
[2023-06-23 19:23] LABS: Amorphous Sediment Urine 1+ /hpf; Bacteria Urine 1+ /hpf; Mucus Urine 1+ /hpf; RBC Urine 0-4 /hpf (0-2); Squamous Epithelial Cell Urine 0-4 /hpf (0-5)
[2023-06-23] MEDS: magnesium sulfate premix 2 GM/50 ML PIGGYBACK IV (19:40)
--- NOTE | 2023-06-23 20:21 | PC.NURSE ---
report called to Chary on Med-Surg. No further questions at time of report.
[2023-06-23 20:23] LABS: Iron 131 ug/dL (37-145)
[2023-06-23 20:34] LABS: Percent Saturation 87.9 % (20-50); Total Iron Binding Capacity 149 mcg/dl; Unsaturated Iron Binding 18 ug/dL (112-347)
[2023-06-23 21:53] LABS: Reflex Lactate Order REFLEX LACTIC ORDERD
[2023-06-23 22:07] LABS: Free T4 Free Thyroxine 1.12 ng/dL (0.82-1.77); T3 Free 1.2 PG/ML (2.0-4.4)
[2023-06-23] MEDS: apixaban 5 mg Tablet 2.5 MG PO (22:30)
[2023-06-23] MEDS: midodrine 5 mg TABLET 10 MG PO (22:30)
[2023-06-23] MEDS: pantoprazole 40 mg SDV IVP (22:31)
[2023-06-23] MEDS: sodium chlor 0.9% + KCl 20 mEq 20 MEQ/1,000 ML BAG 50 MEQ IV (23:04)
[2023-06-23 23:27] LABS: Lactic Acid level (Lactate) 3.1 mmol/L (0.5-2.2)
--- NOTE | 2023-06-23 23:27 | ECG_ITS ---
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 Measurements Intervals [place] Rate: 75 P: 36 IA: 138 QRS: -22 QRSD: 108 T: -60 QT: 411 QTc: 460 Interpretive Statements SINUS RHYTHM WITH SINUS ARRHYTHMIA INFERIOR MYOCARDIAL INFARCTION , OF INDETERMINATE AGE [40+ ms Q WAVE AND/OR ST/T ABNORMALITY IN II/aVF] POSSIBLE ANTEROLATERAL MYOCARDIAL INFARCTION , OF INDETERMINATE AGE [30 ms Q WAVE IN I/aVL/V3-V6] Compared to ECG 06/23/2023 18:04:23 No significant changes Electronically Signed On 06-24-2023 8:35:32 MIDDLE SCHOOL LIBRARIAN by Gaston Yuan M.D. [id number]
[2023-06-24] VITALS (13 sets, daily range): BP systolic 90–125; BP diastolic 60–89; PULSE 76–102; RESP 15–20; TEMP 36.4–36.8; O2SAT 98–100; BMI 24.9
[2023-06-24 00:35] LABS: SARS Covid-2 Antigen negative (Negative)
--- NOTE | 2023-06-24 01:00 | P.HP_ITS ---
Providers/Chief Complaint 2 Admitting Physician: Roney Flores MD Primary Care Provider: Doug Allen DO Chief Complaint: Weakness, cant eat/drink, N/V History of Present Illness Peri Cid is a 67 year old female who was recently admitted to the hospital between June 11 to June 14, 2023 for weakness vomiting and diarrhea. Her course was notable for acute kidney injury dehydration and multiple electrolyte abnormalities along with metabolic encephalopathy. She was started on midodrine and fludrocortisone for hypotension. To evaluate for persisting diarrhea and nausea, stool studies were sent which were negative. Unable to see C. difficile studies. Gallbladder ultrasound CT abdomen and pelvis were obtained which demonstrated some gallstones but no evidence of cholecystitis. She was also diagnosed with COVID 19 infection at the time of discharge due to PCR positivity. Since she had recovered uneventfully and was asymptomatic from a respiratory standpoint no further treatment was indicated for the treatment. Patient was assessed by PT and was found to have poor strength and recommended continued skilled therapy. Patient declined SNF and elected to return home. Since returning home she has continued to feel increasingly weak. She has continued to have persistent nausea and vomiting to the point of dehydration and electrolyte abnormalities. She returns today for the same. Additionally reports that she has had no heat in the home. Denies any fever or chills. Today in noted to be on 2.5 L/min supplemental O2. Per review of past case management notes it appears patient has home oxygen which she typically uses at 3 L/min but has recently been unable to do so due to faulty wiring in her house and unable to use heat and oxygen concentrator at the same time. 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 She states her diarrhea has resolved as of yesterday. Review of Systems 2 General: Reports: 10 or more systems reviewed and unremarkable except in HPI and below Const: Denies: fever(s), chills or body aches Eyes: Denies: change in vision, blurry vision or photophobia ENMT: Reports: hoarseness; Denies: throat pain, enlarged tonsils, odynophagia or nasal congestion Card: Denies: chest pain, palpitations, irregular heart rhythm, edema, swelling of feet/ankles, lightheadedness, pre-syncope, dyspnea on exertion or orthopnea Resp: Denies: dyspnea, productive cough, non-productive cough, wheezing, stridor, pain on inspiration, change in phlegm color, hemoptysis or chest congestion GI: Denies: abdominal pain, nausea, vomiting, hematemesis, coffee ground emesis, dysphagia, heartburn, diarrhea, constipation, GI cramping, change in stool character, hematochezia or melena : Denies: flank pain, difficulty voiding, dysuria, urinary frequency, urinary urgency, urinary hesitancy or hematuria Musc: Denies: neck pain, back pain, extremity pain, joint swelling, joint warmth or deformity Neuro: Denies: headache(s), numbness in extremities, weakness in extremities, sensory changes, difficulty walking, frequent falls, dizziness, vertigo, behavioral changes, Slurred speech present or seizure-like activity Psych: Denies: anxiety, depression, suicidal ideation or homicidal ideation Endo: Denies: polyuria, polydipsia, tired all the time, cold intolerance or hot flashes Romain/Lymph: Denies: easy bruising or easy bleeding Medications/Allergies Home Medications Medication Instructions Recorded Confirmed Last Taken Type albuterol sulfate 90 mcg/actuation 2 puff inhalation Q6H PRN 11/29/20 06/19/23 Unknown History aerosol inhaler Shortness Of Breath calcitriol 0.25 mcg capsule 0.25 mcg PO .ON MON,SAT,Sat10/15/22 06/19/23 06/10/23 History clopidogrel 75 mg tablet 75 mg PO QAM 01/26/23 06/19/23 06/10/23 History lidocaine-prilocaine 2.5 %-2.5 % See Rx Instructions .Route .COMPLEX 01/26/23 06/19/23 05/30/23 History topical cream nitroglycerin 0.4 mg sublingual 0.4 mg sublingual Q5M PRN Chest 01/26/23 06/19/23 Unknown History tablet (Nitrostat) Pain omega-3 acid ethyl esters 1 gram 3 cap PO DAILY 01/26/23 06/19/23 06/10/23 History capsule ascorbic acid (vitamin C) 500 mg 500 mg PO QAM #90 tabs 03/26/23 06/19/23 06/10/23 Rx tablet (Vitamin C) methenamine hippurate 1 gram tablet 1 g PO QAM #90 tabs 03/26/23 06/19/23 06/10/23 Rx fluticasone propionate 50 2 spray intranasal DAILY PRN 04/25/23 06/19/23 05/30/23 History mcg/actuation nasal Allergy Symptoms spray,suspension tramadol 50 mg tablet 50 mg PO BID PRN Pain #60 tabs 05/06/23 06/19/23 Unknown Rx midodrine 10 mg tablet 10 mg PO TID 05/30/23 06/19/23 06/10/23 History lansoprazole 30 mg capsule,delayed 30 mg PO DAILY 06/11/23 06/19/23 06/10/23 History release apixaban 5 mg tablet (Eliquis) 2.5 mg (1/2 x 5 mg) PO 06/14/23 06/19/23 Unknown Rx BID@0900,2100 #30 tabs folic acid 1 mg tablet 1 mg PO DAILY #30 tabs 06/14/23 06/19/23 Unknown Rx gabapentin 300 mg capsule 300 mg PO BID #60 caps 06/14/23 06/19/23 Unknown Rx levothyroxine 125 mcg tablet 125 mcg PO QAM #30 tabs 06/14/23 06/19/23 Unknown Rx rosuvastatin 10 mg tablet See Rx Instructions .Route 06/18/23 06/19/23 Unknown Rx .COMPLEX #90 tabs cefdinir 300 mg capsule 300 mg PO BID #10 caps 06/19/23 06/19/23 Unknown Rx fludrocortisone 0.1 mg tablet 0.1 mg PO DAILY #30 tabs 06/19/23 06/19/23 Unknown Rx levofloxacin 500 mg tablet 500 mg PO DAILY #7 tabs 06/19/23 06/19/23 Unknown Rx Allergies Allergy/AdvReac Type Severity Reaction Status Date / Time hepatitis B immune globulin Allergy Unknown Unknown Verified 06/19/23 09:53 PFSH Acute 2 PFSH: Medical History Neck injury Head injury due to trauma Fall with injury Hypotension Secondary hyperparathyroidism of renal origin Nonscarring hair loss Pain associated with defecation Family history of colon cancer requiring screening colonoscopy Diabetic neuropathy GERD (gastroesophageal reflux disease) Chronic rhinosinusitis Insomnia Diabetic peripheral neuropathy associated with type 2 diabetes mellitus Chronic kidney disease Cystitis cystica Coronary artery disease S/P extracorporeal shock wave therapy Renal calculus, left treated with ESWL with resolution Urolithiasis Recurrent UTI Tobacco abuse CHF (congestive heart failure) ASHD (arteriosclerotic heart disease) Diabetes 1.5, managed as type 2 CKD (chronic kidney disease) Hyperlipidemia EDNA (obstructive sleep apnea) HTN (hypertension) Obesity COPD (chronic obstructive pulmonary disease) Myocardial infarction Surgical History H/O bariatric surgery S/P angioplasty with stent Family History Mother , at age 86 CAD (coronary artery disease) Diabetes Myocardial infarction Hypertension Father , AGE 72 Diabetes CAD (coronary artery disease) Cancer LUNG Brother Diabetes CAD (coronary artery disease) Hypertension Sister Diabetes Social History Smoking and tobacco/nicotine status: current every day tobacco/nicotine user cigarettes Alcohol intake: never Adopted: No Caregiver/support person: No Marital status: Legally Current occupational status: retired and disabled Current gender identity: Female Female Reproductive History: Spontaneous abortions: No Vitals/I&O/Wt Last Vital Signs Temp 97.4 F L 06/23/23 23:39 Pulse 80 06/24/23 00:00 Resp 18 06/24/23 00:00 BP 120/75 06/24/23 00:00 Pulse Ox 100 06/24/23 00:00 O2 Del Method Nasal Cannula 06/24/23 00:00 06/23/23 06/23/23 06/24/23 14:59 22:59 06:59 Intake Total 2155 / 2155 Balance 2155 / 2155 Weight last 48 hrs Weight 65.317 kg Weight 65.317 kg Physical Exam 2 Narrative: General: No acute distress, AO x3 HEENT: PERRLA, pupils bilaterally equal and reactive, pallors not present Chest: Normal vesicular breath sounds, no added sounds, equal good air entry bilaterally CVS: S1-S2 regular, no murmurs, no tachycardia, no gallops, no rubs Abdomen: Soft, nontender, no organomegaly, bowel sounds present Neuro: No focal deficits, no facial deformity, AO x3, power 5/5 in all limbs Urinary Catheter Management: Hooper: Cath Placed During This Visit: yes Urinary Catheter Date of Insertion: 06/24/23 Urinary Catheter Time of Insertion: 01:26 Data 06/24/23 02:48 06/24/23 02:48 Other Labs: [place] [address] XRay Report Signed Patient: Peri Cid Unit #: [id number] : 1955 Age/Sex: 67 / F ADM Date: 06/23/23 Loc: ER Room/Bed: Attending Dr: Ordering Provider/Ordering MD: Ellen Fong MD Date of Service: 06/23/23 Procedure(s): XR chest 1V portable [id number] Accession Number(s): [id number] Report Number: [id number] PROCEDURE INFORMATION: Exam: XR Chest Exam date and time: 06/23/2023 6:09 PM Age: 67 years old Clinical indication: Other: Weakness TECHNIQUE: Imaging protocol: Radiologic exam of the chest. Views: 1 view. COMPARISON: CR XR chest 1V portable [id number] 06/11/2023 3:47 PM FINDINGS: Lungs: Unremarkable. No consolidation. Pleural spaces: Unremarkable. No pleural effusion. No pneumothorax. Heart/Mediastinum: Unremarkable. No cardiomegaly. Bones/joints: Chronic degenerative changes of the shoulder joints, and vertebral bodies. XR/XR chest 1V portable [id number] IMPRESSION: No acute findings. Launch?Image [employer] [place] [address] CT Scan Report Signed Patient: Peri Cid Unit #: [id number] : 1955 Age/Sex: 67 / F ADM Date: 06/11/23 Loc: [facility] Room/Bed: [facility] Attending Dr: José Miguel Farrell MD Ordering Provider/Ordering MD: José Miguel Farrell MD Date of Service: 06/12/23 Procedure(s): CT abdomen pelvis w con* [id number] Accession Number(s): [id number] Report Number: [id number] WS: [id number] CT ABDOMEN PELVIS TECHNIQUE: Contrast-enhanced CT of the abdomen and pelvis with coronal and sagittal reformatted images. CLINICAL INFORMATION: vomiting COMPARISON: CT 04/25/23 and 01/29/2023 DLP: 535.[address] scans at [facility] use at least one of these dose optimization techniques: automated exposure control; mA and/or kV adjustment per patient size (includes targeted exams where dose is matched to clinical indication); or iterative reconstruction. FINDINGS: Diffuse fatty filtration of the liver. Normal portal vein and splenic vein. Large laminated gallstone in the gallbladder unchanged compared to the prior studies. No significant gallbladder wall thickening or pericholecystic fluid. Mild prominence of the common bile duct measuring 7 mm appears similar to the prior studies. This can be further evaluated with MRCP. Recommend correlation with biliary function studies. Fatty atrophy of the pancreas. Normal spleen. Small esophageal hiatal hernia. Prior postoperative changes gastric bypass with Sebastian-en-Y anastomosis. Anastomosis appears stable compared to previous. No evidence of high-grade obstruction. Oral contrast is visualized in the distal small bowel. Adrenal glands are normal. Normal renal parenchymal enhancement. No hydronephrosis. Continued resolution of the previously described inferior rectus sheath hematoma with more low-attenuation change today measuring 3.6 cm. A few colonic diverticuli. No evidence of acute diverticulitis. No evidence of high- grade small or large bowel obstruction. Fluid within the patulous sigmoid colon. Normal caliber small bowel. Small amount of free fluid in the pelvis similar to the prior studies. IMPRESSION: 1. No evidence of high-grade small or large bowel obstruction. Field fluid within the patulous sigmoid colon. 2. Prior postoperative changes gastric bypass with Sebastian-en-Y anastomosis. No evidence of leak or obstructive stricture. 3. Small esophageal hiatal hernia. 4. Diffuse infiltration the liver. 5. Large laminated gallstone in the gallbladder. No gallbladder wall thickening or pericholecystic fluid. 6. Mild prominence of the common bile duct measuring 7 mm appears stable. Recommend correlation with biliary function studies. This could further evaluated with MRCP if indicated. 7. No hydronephrosis in either kidney. 8. Resolving previously described inferior rectus sheath hematoma. A&P Assessment and plan (1) Recurrent UTI: (2) Impaired mobility and ADLs: (3) Weakness: (4) Hypokalemia: (5) Lactic acidosis: Plan 67-year-old lady with recent discharge from the hospital after presenting here for generalized weakness. Discharged on 06/14 after diagnosis of UTI, and COVID-19 infection. Returned home, however has continued to have multiple episodes of nausea and vomiting. Patient estimates the symptoms have been ongoing for about a month now. Her diarrhea appears to have resolved as of yesterday. CT of the abdomen and pelvis performed recently on 06/12/2024 was significant for cholelithiasis without signs of cholecystitis. Patient does not have any abdominal tenderness today, negative Martin sign. LFTs are unchanged over recent admission. Denies any abdominal pain though has persisting nausea. Stool studies on previous admission negative for shigella/salmonella/campy. Check C diff if recurrent diarrhea Symptomatic treatment with as needed Zofran and Reglan alternating. Noted electrolyte abnormalities by way of hypokalemia and hypomagnesemia. likely from GI losses. elevated lactate suspected related to dehydration from GI losses. Started on hydration with normal saline + KCL repeat lactate with hydration No current leukocytosis or fever , less likely suspicion for infection c/o urinary hesitancy and burning, possibly has recurrent UTI, will add treatment based on previous cx with Levaquin and Ceftriaxone. Check UA and urine cx today Continue home dose of Eliquis, midodrine and Fludrocortisone Recent h/o COVID 19 on 06/13 , Ag negative today, CXR without any abnormalities, no directed treatment indicated for now PT/OT assessment for appropriate disposition planning DNR/DNI Attestations 2 Medical Necessity Statement*: > 2 midnight stay is anticipated Coding Level of Care Code Acute Code for Chg Fwd Moderate MDM includes number and complexity of problems actively addressed during encounter, amount and/or complexity of data reviewed/ordered and described risk of complication, morbidity or mortality of management as documented Diagnoses Recurrent UTI N39.0 Impaired mobility and ADLs Z74.09; Z78.9 Weakness R53.1 Hypokalemia E87.6 Lactic acidosis E87.20
[2023-06-24 03:02] LABS: Basophils % 0.1 %; Eosinophils % 0.2 %; Hematocrit 35.4 % (36-47); Lymphocytes # 1.4 10^3/uL (0.8-4.8); Lymphocytes % 11.9 %; Mean Corpuscular HGB Conc 33.9 g/dL (30-55); Mean Corpuscular Hemoglobin 33.7 pg (27-33); Mean Corpuscular Volume 99.4 fl (85-98); Mean Platelet Volume 12.3 fL (7.4-10.4); Monocytes # 0.6 10^3/uL (0.2-0.9); Monocytes % 5.3 %; Neutrophils # 9.61 10^3/uL (1.8-7.7); Nucleated Red Blood Cells % 0.3 %; Platelet Count 223 10^3/cmm (157-399); Red Blood Count 3.56 10^6/uL (3.85-5.65); Red Cell Distribution Width 18.5 % (12.1-15.1); White Blood Count 11.72 10^3/uL (3.29-11.43)
[2023-06-24 03:25] LABS: Chol HDL Ratio 2.31 mg/dL (0.0-4.40); Cholesterol 127 mg/dL (0-200); HDL Cholesterol 55 mg/dL (60-100); LDL Cholesterol Calculated 31 mg/dL (50-129); LDL HDL Ratio 0.56 RATIO (0.00-3.22); Magnesium 1.9 mg/dL (1.7-2.3); Triglycerides 204 mg/dL (0-150); VLDL Cholestrol Calculation 41 mg/dL (0-30)
[2023-06-24 03:26] LABS: Alanine Aminotransferase 28 U/L (0-33); Alkaline Phosphatase 100 U/L (35-105); Anion Gap 23.9 (5-19); Aspartate Amino Transferase 47 U/L (0-32); Blood Urea Nitrogen 11 mg/dL (8-23); Calcium 7.8 mg/dL (8.5-10.5); Carbon Dioxide 16 mmol/L (22-29); Chloride 106 mmol/L (98-107); Creatinine Clr Calc Pharmacy 56.4452; Globulin 3.1 g/dL (1.3-4.6); Glomerular Filtration Rate 62.5 mL/min (90-130); Glucose 102 mg/dL (65-115); Osmolality Calculated 296 mOsm/kg (285-295); Sodium 143 mmol/L (136-145); Total Protein 6.1 g/dL (6.6-8.7)
[2023-06-24] MEDS: morphine 4 mg/mL SDV 1 mL 2 MG IVP (03:32)
[2023-06-24 03:39] LABS: Estmated Average Glucose 85; Hemoglobin A1C 4.6 % (4.0-6.0)
[2023-06-24 03:40] LABS: Folate Level 14.4 ng/mL (4.8-37.3)
[2023-06-24 03:42] LABS: Phosphorus 0.8 mg/dL (2.5-4.5); Potassium 2.9 mmol/L (3.5-5.1)
[2023-06-24 03:47] LABS: Cortisol Random 47.23 ug/dL (2.47-19.5)
[2023-06-24] MEDS: ondansetron 2 mg/ML SDV 2 mL 4 MG IVP ×2 (05:18→21:21)
[2023-06-24 06:17] LABS: Creatine Phosphokinase 179 U/L (26-192)
[2023-06-24] MEDS: cefTRIAXone 1,000 MG in sodium chloride 0.9% (plus) 50 ML 100 MG IV (06:29)
[2023-06-24] MEDS: scopolamine 1.5 Patch 1 PATCH TRANSDERMA (06:31)
[2023-06-24] MEDS: lidocaine 1% 5 ML in potassium chloride premix 100 ML 26.25 ML IV (06:42)
--- NOTE | 2023-06-24 08:43 | PC.PHAR ---
pts daughter kyle [phone] verified pts medications
[2023-06-24] MEDS: gabapentin 300 mg Capsule PO ×2 (08:55→17:15)
[2023-06-24] MEDS: atorvastatin 40 mg Tablet PO (08:55)
[2023-06-24] MEDS: midodrine 5 mg TABLET 10 MG PO ×3 (08:55→20:56)
[2023-06-24] MEDS: folic acid 1 mg Tablet PO (08:55)
[2023-06-24] MEDS: apixaban 5 mg Tablet 2.5 MG PO ×2 (08:56→20:56)
--- NOTE | 2023-06-24 08:58 | CTR_ITS ---
PROCEDURE INFORMATION: Exam: CT Abdomen And Pelvis With Contrast Exam date and time: 06/24/2023 4:43 PM Age: 67 years old Clinical indication: Vomiting; Abdominal pain; Generalized; Additional info: Persisting vomiting, abdominal pain, increased lactate TECHNIQUE: Imaging protocol: Computed tomography of the abdomen and pelvis with contrast. Sagittal and coronal reformatted images were created and reviewed. Radiation optimization: All CT scans at this facility use at least one of these dose optimization techniques: automated exposure control; mA and/or kV adjustment per patient size (includes targeted exams where dose is matched to clinical indication); or iterative reconstruction. Contrast material: OMNI 350; Contrast volume: 100 ml; Contrast route: INTRAVENOUS (IV); REPORTING DATA: Count of CT and Cardiac NM exams in prior 12 months: This patient has received 8 known CTs and 0 known cardiac nuclear medicine studies in the 12 months prior to the current study. COMPARISON: CT abdomen pelvis w con* [id number] 06/12/2023 12:28 PM RADIATION DOSE METRICS: Total DLP (mGy-cm): 532.53 FINDINGS: Lungs: Dependent atelectasis in the lungs bilaterally. Pleural spaces: No pleural effusion. Heart: Stable moderate enlargement of the visualized portions of the heart. Coronary arteries: Stable extensive atherosclerotic calcification in the visualized coronary arteries. Liver: Diffuse, mildly decreased attenuation in the liver. Findings are stable and consistent with mild fatty infiltration. Gallbladder and bile ducts: Stable large stone in the gallbladder. No gallbladder wall thickening. No biliary ductal dilatation. Pancreas: The pancreas is unremarkable. No pancreatic ductal dilatation. Spleen: The spleen is unremarkable. Adrenal glands: The right and left adrenal glands are unremarkable. Kidneys and ureters: The right kidney is unremarkable. Stable non-obstructing stone in the left kidney measuring 4.2 cm (series 3, image 22). The right and left ureters are unremarkable. Stomach and bowel: Stable postsurgical changes consistent with previous Sebastian-en-Y gastric bypass. Numerous diverticula in the descending colon and sigmoid colon. No evidence for diverticulitis. Fluid within the small bowel and colon without evidence of bowel wall thickening. Appendix: The appendix is visualized and is unremarkable. No findings to suggest acute appendicitis. Intraperitoneal space: No free intraperitoneal air. No ascites. No loculated fluid collections to suggest an abscess. Vasculature: Stable moderate atherosclerotic calcifications in the visualized arteries. No evidence for aortic aneurysm or aortic dissection. Hepatic veins, portal veins, splenic vein, and SMV are patent. Lymph nodes: No lymphadenopathy. Urinary bladder: The bladder is decompressed by a Hooper catheter. Air in the bladder, likely related to Hooper catheter placement. Reproductive: The uterus, right ovary, and left ovary are unremarkable. Bones/joints: Bones are diffusely osteopenic. Degenerative changes in the spine, sacroiliac joints, and hips. Soft tissues: Stable small fluid collection in the posterior aspect of the inferior left rectus muscle sheath measuring 2.2 x 3.4 cm (series 3, image 76). Findings suggest a resolving hematoma. CT/CT abdomen pelvis w con* [id number] IMPRESSION: 1. Fluid within the small bowel and colon without evidence of bowel wall thickening. This may reflect viral gastroenteritis in the appropriate clinical situation. 2. Stable mild fatty infiltration of the liver. 3. Stable large stone in the gallbladder. No evidence for cholecystitis. 4. Stable nonobstructing left renal stone. 5. Descending colon and sigmoid colon diverticulosis. No evidence for diverticulitis. 6. Stable small fluid collection in the posterior aspect of the inferior left rectus muscle sheath. Findings suggest a resolving hematoma. 7. Incidental/nonacute findings are listed in the report.
[2023-06-24] MEDS: phosphorus 250 mg Tablet PO ×2 (10:26→17:15)
[2023-06-24] MEDS: fludrocortisone 0.1 mg Tablet PO (10:26)
[2023-06-24] MEDS: levofloxacin-dextrose 5 % 500 MG/100 ML PREMIX 100 MG IV (11:26)
--- NOTE | 2023-06-24 12:30 | PC.NURSE ---
Midline placed to left basilic vein. Referred to vascular access nurse for midline placement due to multiple failed IV attempts as well as failed US guided attempts. Risks and benefits discussed and informed consent obtained from patient. Right arm assessed with no viable veins noted. Left arm assessed with left basilic vein measuring 4 mm, straight, and apparent best choice for placement. Using sterile technique and MST, left basilic vein accessed x 1 stick. Mid-arm circumference measured 10 cm from left AC 29 cm. Trimmed cath 9 cm with 0 cm external length noted. Good blood return and flushes without difficulty. Line secured with stat-lock. Insertion site covered with Biopatch and TSM. IV to left AC noted to be infiltrated. Line removed. Fluids running to midline without difficulty. Report given to bedside nurseJorge.
[2023-06-24 15:33] LABS: Alanine Aminotransferase 29 U/L (0-33); Albumin Level 2.7 g/dL (3.5-5.2); Alkaline Phosphatase 86 U/L (35-105); Anion Gap 19.5 (5-19); Aspartate Amino Transferase 58 U/L (0-32); Blood Urea Nitrogen 9 mg/dL (8-23); Calcium 7.8 mg/dL (8.5-10.5); Carbon Dioxide 18 mmol/L (22-29); Chloride 109 mmol/L (98-107); Creatinine Clr Calc Pharmacy 63.6965; Globulin 2.6 g/dL (1.3-4.6); Glomerular Filtration Rate 71.5 mL/min (90-130); Glucose 68 mg/dL (65-115); Osmolality Calculated 293 mOsm/kg (285-295); Potassium 3.5 mmol/L (3.5-5.1); Sodium 143 mmol/L (136-145); Total Bilirubin 0.9 mg/dL (0.15-1.2); Total Protein 5.3 g/dL (6.6-8.7)
[2023-06-24] MEDS: pantoprazole 40 mg SDV IVP (20:58)
--- NOTE | 2023-06-24 22:21 | P.PN_ITS ---
Subjective 2 Subjective: She has been overall weak, difficulties with ambulation. Would like to work with physical therapy and go to senior care facility which she states has discussed with her primary provider previously. Has been having nausea, vomiting today. Vitals/I&O/Wt Last Vital Signs Temp 97.7 F 06/24/23 20:00 Pulse 97 06/24/23 20:00 Resp 19 H 06/24/23 20:00 BP 90/60 06/24/23 20:00 Pulse Ox 98 06/24/23 20:00 O2 Del Method Nasal Cannula 06/24/23 20:00 O2 Flow Rate 2 06/24/23 20:00 06/24/23 06/24/23 06/24/23 06:59 14:59 22:59 Intake Total 2201.667 / 2201.667 208.333 / 237.882 0570 / 1448.333 Output Total 500 / 500 700 / 700 Balance 1701.667 / 1701.667 208.333 / 208.333 540 / 748.333 Weight last 48 hrs Weight 65.771 kg Weight 65.317 kg Weight 65.317 kg Physical Exam 2 Const: COMMON NORMALS: patient oriented x3 and alert GENERAL APPEARANCE: c ooperative ORIENTATION/CONSCIOUSNESS: Yes awake HENMT: COMMON NORMALS: oropharynx normal Neck/C-Spine: COMMON NORMALS: no JVD Resp: COMMON NORMALS: normal respiratory effort and clear to auscultation bilaterally AUSCULTATION: clear to auscultation bilaterally Cardio: COMMON NORMALS: no JVD, regular rhythm, S1 normal heart sound present, S2 normal heart sound present and No murmurs present (Cardio) RHYTHM: regular rhythm HEART SOUNDS: S1 normal heart sound present and S2 normal heart sound present GI: COMMON NORMALS: Normal to inspection, nondistended, normoactive bowel sounds present, Soft to palpation and non-tender PALPATION: Yes Soft to palpation Extremity: COMMON NORMALS: no joint enlargement and no pedal edema Neuro: COMMON NORMALS: patient oriented x3 and moves all extremities S ENSORIUM/ORIENTATION: Yes alert Skin: COMMON NORMALS: no rashes or lesions noted GENERAL SKIN EXAM: no rashes or lesions noted OTHER: Scattered bruising Urinary Catheter Management: Hooper: Cath Placed During This Visit: yes Reason for Continuing Indwelling Catheter: Other Urinary Catheter Date of Insertion: 06/24/23 Urinary Catheter Time of Insertion: 01:26 Data 06/24/23 02:48 06/24/23 15:08 A&P Assessment and plan (1) Recurrent UTI: (2) Impaired mobility and ADLs: (3) Weakness: (4) Hypokalemia: (5) Lactic acidosis: Plan 67-year-old lady with recent discharge from the hospital after presenting here for generalized weakness. Discharged on 06/14 after diagnosis of UTI, and COVID-19 infection. Returned home, however has continued to have multiple episodes of nausea and vomiting. Patient estimates the symptoms have been ongoing for about a month now. Her diarrhea appears to have resolved as of yesterday. CT of the abdomen and pelvis performed recently on 06/12/2024 was significant for cholelithiasis without signs of cholecystitis. Nausea and vomiting with multiple electrolyte abnormalities including hypokalemia, hypomagnesemia on presentation, noted also severe hypophosphatemia, vitamin B12, folic acid reviewed, noted normal. Blood pressure is WNL during the day, although soft and evening 90/60. Serum cortisol reviewed, not suggestive of adrenal insufficiency. Continues on fludrocortisone as previously. She has history of Sebastian-en-Y gastric bypass, noted some extensive bruising, with suspected nutritional deficiencies including vitamin K deficiency, will assess zinc, copper, vitamin D, noted previously deficient. Noted hypocalcemia. Hypoalbuminemia. Will give albumin. Add protein shakes Ensure high-protein. Oral intake is tolerating. Add multivitamins, calcium, vitamin D supplements, zinc, will not have copper supplement. B12 and folate reviewed, noted normal. Dietitian consultation for nutritional needs with Sebastian-en-Y. Continue symptomatic treatment, Zofran as needed, although has not helped as well. She states in the past Reglan used to help her better after her Sebastian-en-Y surgery. Continue Reglan. I suspect her symptoms may be due to nutritional deficiencies. Patient does not have any abdominal tenderness today, negative Martin sign. LFTs are unchanged over recent admission. Denies any abdominal pain though has persisting nausea. Stool studies on previous admission negative for shigella/salmonella/campy. Pending C diff Reviewed rapid COVID-19 antigen, noted negative. Symptomatic treatment with as needed Zofran and Reglan alternating. Possible UTI: C/o urinary hesitancy and burning, possibly has recurrent UTI, will add treatment based on previous cx with Levaquin and Ceftriaxone. Equivocal UA, reviewed, noted pending urine cx Continue home dose of Eliquis, midodrine and Fludrocortisone Recent h/o COVID 19 on 06/13 , Ag negative today, CXR without any abnormalities, no directed treatment indicated for now PT/OT assessment for appropriate disposition planning She has been deconditioned, would like to try to make arrangements to go to senior care facility for rehabilitation. Case management not available today due to holiday. Will request consultation for tomorrow. PT. DNR/DNI Attestations 2 Medical Necessity Statement*: Continue admission for assessment management of recurrent nausea and vomiting, multiple electrolyte and nutritional deficiencies, in a lady with recent COVID- 19, multiple recent hospitalizations, possible UTI, post discharge planning and arrangements. Diagnoses Recurrent UTI N39.0 Impaired mobility and ADLs Z74.09; Z78.9 Weakness R53.1 Hypokalemia E87.6 Lactic acidosis E87.20
[2023-06-24] MEDS: albumin 25 G/100 ML BAG 60 G IV (23:19)
[2023-06-25] VITALS (10 sets, daily range): BP systolic 96–122; BP diastolic 60–82; PULSE 53–99; RESP 14–22; TEMP 36.4–37; O2SAT 96–100; BMI 25.5
[2023-06-25 00:26] LABS: 25 Hydroxy Vitamin D 11 ng/mL (30-100)
[2023-06-25] MEDS: cefTRIAXone 1,000 MG in sodium chloride 0.9% (plus) 50 ML 100 MG IV (05:20)
[2023-06-25] MEDS: levothyroxine 125 mcg Tablet PO (06:19)
[2023-06-25] MEDS: clopidogrel 75 mg Tablet PO (06:19)
[2023-06-25 06:27] LABS: Eosinophils % 0.3 %; Hematocrit 28.6 % (36-47); Lymphocytes # 2.1 10^3/uL (0.8-4.8); Lymphocytes % 21.7 %; Mean Corpuscular HGB Conc 33.2 g/dL (30-55); Mean Corpuscular Hemoglobin 34.3 pg (27-33); Mean Corpuscular Volume 103.2 fl (85-98); Mean Platelet Volume 12.3 fL (7.4-10.4); Monocytes # 0.5 10^3/uL (0.2-0.9); Monocytes % 5.4 %; Neutrophils # 6.88 10^3/uL (1.8-7.7); Nucleated Red Blood Cells % 0.3 %; Platelet Count 140 10^3/cmm (157-399); Red Blood Count 2.77 10^6/uL (3.85-5.65); Red Cell Distribution Width 19.3 % (12.1-15.1); White Blood Count 9.56 10^3/uL (3.29-11.43)
[2023-06-25 06:40] LABS: Alanine Aminotransferase 30 U/L (0-33); Albumin Level 3.2 g/dL (3.5-5.2); Alkaline Phosphatase 80 U/L (35-105); Aspartate Amino Transferase 46 U/L (0-32); Blood Urea Nitrogen 7 mg/dL (8-23); Calcium 7.5 mg/dL (8.5-10.5); Carbon Dioxide 21 mmol/L (22-29); Chloride 108 mmol/L (98-107); Globulin 2.3 g/dL (1.3-4.6); Glomerular Filtration Rate 62.5 mL/min (90-130); Glucose 89 mg/dL (65-115); Osmolality Calculated 291 mOsm/kg (285-295); Sodium 142 mmol/L (136-145); Total Bilirubin 0.8 mg/dL (0.15-1.2); Total Protein 5.5 g/dL (6.6-8.7)
[2023-06-25 06:42] LABS: Magnesium 1.7 mg/dL (1.7-2.3); Phosphorus 2.1 mg/dL (2.5-4.5)
[2023-06-25] MEDS: apixaban 5 mg Tablet 2.5 MG PO ×2 (10:09→20:39)
[2023-06-25] MEDS: zinc gluconate 50 mg Tablet 25 MG PO (10:09)
[2023-06-25] MEDS: midodrine 5 mg TABLET 10 MG PO ×3 (10:10→20:39)
[2023-06-25] MEDS: cholecalciferol (vitamin D3) 1,000 unit Tablet 6000 UNIT PO (10:10)
[2023-06-25] MEDS: gabapentin 300 mg Capsule PO ×2 (10:10→17:59)
[2023-06-25] MEDS: atorvastatin 40 mg Tablet PO (10:10)
[2023-06-25] MEDS: phosphorus 250 mg Tablet PO ×2 (10:10→17:55)
[2023-06-25] MEDS: fludrocortisone 0.1 mg Tablet PO (10:11)
[2023-06-25] MEDS: folic acid 1 mg Tablet PO (10:11)
[2023-06-25] MEDS: multivitamin therapeutic Tablet 2 TAB PO (10:11)
[2023-06-25] MEDS: calcium acetate 667 mg Capsule 1334 MG PO ×3 (10:11→17:59)
[2023-06-25] MEDS: magnesium sulfate premix 2 GM/50 ML PIGGYBACK IV (10:38)
[2023-06-25] MEDS: ondansetron 2 mg/ML SDV 2 mL 4 MG IVP (10:45)
[2023-06-25] MEDS: levofloxacin-dextrose 5 % 500 MG/100 ML PREMIX 100 MG IV (12:09)
[2023-06-25] MEDS: lidocaine 1% 5 ML in potassium chloride premix 100 ML 26.25 ML IV (13:34)
--- NOTE | 2023-06-25 18:48 | PM.PN ---
Subjective Subjective: She is doing slightly better today. Still dry heaving earlier, but overall states nausea and vomiting have subsided somewhat. Vitals/I&O/Wt Last Vital Signs Temp 97.8 F 06/25/23 16:00 Pulse 99 06/25/23 16:00 Resp 16 06/25/23 16:00 BP 101/69 06/25/23 16:00 Pulse Ox 99 06/25/23 16:00 O2 Del Method Nasal Cannula 06/25/23 16:00 O2 Flow Rate 2 06/25/23 04:00 06/25/23 06/25/23 06/25/23 06:59 14:59 22:59 Intake Total 390 / 1838.333 150 / 150 105 / 255 Output Total 1175 / 1875 Balance -785 / -36.667 150 / 150 105 / 255 Weight last 48 hrs Weight 67.54 kg Weight 65.771 kg Weight 65.317 kg Physical Exam Narrative: Appears less miserable today. Const: COMMON NORMALS: patient oriented x3 and alert GENERAL APPEARANCE: cooperative ORIENTATION/CONSCIOUSNESS: Yes awake HENMT: COMMON NORMALS: oropharynx normal Neck/C-Spine: COMMON NORMALS: no JVD Resp: COMMON NORMALS: normal respiratory effort and clear to auscultation bilaterally AUSCULTATION: clear to auscultation bilaterally Cardio: COMMON NORMALS: no JVD, regular rhythm, S1 normal heart sound present, S2 normal heart sound present and No murmurs present (Cardio) RHYTHM: regular rhythm HEART SOUNDS: S1 normal heart sound present and S2 normal heart sound present GI: COMMON NORMALS: Normal to inspection, nondistended, normoactive bowel sounds present, Soft to palpation and non-tender PALPATION: Yes Soft to palpation Extremity: COMMON NORMALS: no joint enlargement and no pedal edema Neuro: COMMON NORMALS: patient oriented x3 and moves all extremities SENSORIUM/ORIENTATION: Yes alert Skin: OTHER: Scattered bruising Urinary Catheter Management: Hooper: Cath Placed During This Visit: yes Reason for Continuing Indwelling Catheter: Other Urinary Catheter Date of Insertion: 06/24/23 Urinary Catheter Time of Insertion: 01:26 Data 06/25/23 06:18 06/25/23 06:18 Micro: Microbiology 06/24/23 07:02 Urine Culture - Preliminary Urine Catheterized A&P Assessment and plan (1) Recurrent UTI: (2) Impaired mobility and ADLs: (3) Weakness: (4) Hypokalemia: (5) Lactic acidosis: Plan 67-year-old lady with recent discharge from the hospital after presenting here for generalized weakness. Discharged on 06/14 after diagnosis of UTI, and COVID-19 infection. Returned home, however has continued to have multiple episodes of nausea and vomiting. Patient estimates the symptoms have been ongoing for about a month now. Her diarrhea appears to have resolved as of yesterday. CT of the abdomen and pelvis performed recently on 06/12/2024 was significant for cholelithiasis without signs of cholecystitis. Nausea and vomiting: Recurrent nausea and vomiting, today slightly better. Continue Zofran, Reglan as needed. Replace multiple electrolyte and nutrient deficiencies. Appreciate RD consultation, note reviewed. Boost breeze is added. Discussed with case management manager. Reviewed vitals, CBC, reviewed sodium, potassium, anion gap, calcium, phosphorus, magnesium, albumin, vitamin D. Noted deficiencies. Replace potassium, give additional magnesium, supplement phosphorus. Give albumin. Give vitamin D supplementation. Reviewed also vitamin K, copper and zinc these are still pending. Continue multivitamin, zinc supplementation. No copper supplements available in the hospital. Previously reviewed B12 and folic acid are normal. Possible gastroenteritis with fluid in small bowel.At risk of severe electrolyte and nutritional deficiencies given Sebastian-en-Y. Continue symptomatic treatment, Zofran as needed, although has not helped as well. She states in the past Reglan used to help her better after her Sebastian-en-Y surgery. Continue Reglan, monitor symptoms with risk of extrapyramidal abnormalities. Stool studies on previous admission negative for shigella/salmonella/campy. Pending C diff Reviewed rapid COVID-19 antigen, noted negative. Recent UTI:Reviewed urine culture, no growth after 1 day. Recent UTI 06/12. C/o urinary hesitancy and burning, possibly has recurrent UTI, cont treatment based on previous cx with Levaquin and Ceftriaxone. Equivocal UA, reviewed, noted pending urine cx Continue home dose of Eliquis, midodrine and Fludrocortisone Recent h/o COVID 19 on 06/13 , Ag negative today, CXR without any abnormalities, no directed treatment indicated for now Incidentally noted collection in posterior aspect of inferior left rectus muscle. Findings suggest a resolving hematoma. PT/OT assessment for appropriate disposition planning Discussed with case management manager. Arrangements for SNF. She has been deconditioned, would like to try to make arrangements to go to [facility] facility for rehabilitation. Case management not available today due to holiday. DNR/DNI Attestations Medical Necessity Statement*: Continue admission for assessment of management of nausea and vomiting, multiple nutritional and electrolyte deficiencies in a lady with history of Sebastian-en-Y, recent UTI. Post discharge planning and arrangements. Diagnoses Recurrent UTI N39.0 Impaired mobility and ADLs Z74.09; Z78.9 Weakness R53.1 Hypokalemia E87.6 Lactic acidosis E87.20
[2023-06-25] MEDS: pantoprazole 40 mg SDV IVP (20:43)
[2023-06-26] VITALS (25 sets, daily range): BP systolic 80–121; BP diastolic 51–70; PULSE 71–92; RESP 0–108; TEMP 36.4–37; O2SAT 92–100
--- NOTE | 2023-06-26 04:10 | PC.NURSE ---
Assumed care of pt from BANG Stone
[2023-06-26] MEDS: cefTRIAXone 1,000 MG in sodium chloride 0.9% (plus) 50 ML 100 MG IV (05:27)
[2023-06-26] MEDS: levothyroxine 125 mcg Tablet PO (05:27)
[2023-06-26] MEDS: clopidogrel 75 mg Tablet PO (05:27)
[2023-06-26 06:15] LABS: Basophils % 0.1 %; Eosinophils # 0.2 10^3/uL (0.0-0.8); Eosinophils % 2.6 %; Lymphocytes # 2.9 10^3/uL (0.8-4.8); Lymphocytes % 37.1 %; Mean Corpuscular HGB Conc 32.5 g/dL (30-55); Mean Corpuscular Hemoglobin 33.5 pg (27-33); Mean Corpuscular Volume 102.9 fl (85-98); Mean Platelet Volume 12.1 fL (7.4-10.4); Monocytes # 0.6 10^3/uL (0.2-0.9); Monocytes % 7.3 %; Neutrophils # 4.16 10^3/uL (1.8-7.7); Neutrophils % 52.5 %; Nucleated Red Blood Cells # 0.1 /100WBC; Nucleated Red Blood Cells % 0.6 %; Platelet Count 130 10^3/cmm (157-399); Red Blood Count 2.72 10^6/uL (3.85-5.65); Red Cell Distribution Width 19.1 % (12.1-15.1); White Blood Count 7.93 10^3/uL (3.29-11.43)
[2023-06-26 06:39] LABS: Phosphorus 2.3 mg/dL (2.5-4.5)
[2023-06-26 06:40] LABS: Alanine Aminotransferase 22 U/L (0-33); Albumin Level 2.8 g/dL (3.5-5.2); Alkaline Phosphatase 75 U/L (35-105); Anion Gap 13.5 (5-19); Aspartate Amino Transferase 38 U/L (0-32); Blood Urea Nitrogen 7 mg/dL (8-23); Calcium 8.5 mg/dL (8.5-10.5); Carbon Dioxide 25 mmol/L (22-29); Chloride 105 mmol/L (98-107); Globulin 2.2 g/dL (1.3-4.6); Glomerular Filtration Rate 71.5 mL/min (90-130); Glucose 74 mg/dL (65-115); Osmolality Calculated 287 mOsm/kg (285-295); Potassium 3.5 mmol/L (3.5-5.1); Sodium 140 mmol/L (136-145); Total Bilirubin 0.8 mg/dL (0.15-1.2)
[2023-06-26] MEDS: midodrine 5 mg TABLET 10 MG PO ×3 (08:35→19:50)
[2023-06-26] MEDS: calcium acetate 667 mg Capsule 1334 MG PO ×3 (08:35→17:14)
[2023-06-26] MEDS: multivitamin therapeutic Tablet 2 TAB PO (08:35)
[2023-06-26] MEDS: zinc gluconate 50 mg Tablet 25 MG PO (08:35)
[2023-06-26] MEDS: folic acid 1 mg Tablet PO (08:36)
[2023-06-26] MEDS: cholecalciferol (vitamin D3) 1,000 unit Tablet 6000 UNIT PO (08:36)
[2023-06-26] MEDS: atorvastatin 40 mg Tablet PO (08:36)
[2023-06-26] MEDS: phosphorus 250 mg Tablet PO (08:36)
[2023-06-26] MEDS: fludrocortisone 0.1 mg Tablet PO (08:36)
[2023-06-26] MEDS: gabapentin 300 mg Capsule PO ×2 (08:36→17:14)
[2023-06-26] MEDS: apixaban 5 mg Tablet 2.5 MG PO ×2 (08:36→19:50)
--- NOTE | 2023-06-26 12:18 | PC.SOCIAL ---
IMM Update pg 2 of IMM updated and reviewed w/ patient. Copy provided and copy dated, initialed and placed in chart.
[2023-06-26] MEDS: levofloxacin-dextrose 5 % 500 MG/100 ML PREMIX 100 MG IV (12:26)
[2023-06-26] MEDS: TRAMadol 50 mg Tablet PO (12:31)
--- NOTE | 2023-06-26 18:05 | PM.PN ---
Subjective Subjective: She is improving symptomatically. For the first time was able to keep down breakfast today. No abdominal pain. Weak/deconditioned. Vitals/I&O/Wt Last Vital Signs Temp 98.0 F 06/26/23 16:00 Pulse 87 06/26/23 16:00 Resp 17 06/26/23 16:00 BP 95/61 06/26/23 16:00 Pulse Ox 99 06/26/23 16:00 O2 Del Method Nasal Cannula 06/26/23 16:00 O2 Flow Rate 2 06/26/23 16:00 06/26/23 06/26/23 06/26/23 06:59 14:59 22:59 Intake Total 50 / 305 340 / 340 Output Total 350 / 1700 Balance -300 / -1395 340 / 340 Weight last 48 hrs Weight 66.814 kg Weight 67.54 kg Physical Exam Narrative: Appears less miserable today. Const: COMMON NORMALS: patient oriented x3 and alert GENERAL APPEARANCE: cooperative ORIENTATION/CONSCIOUSNESS: Yes awake HENMT: COMMON NORMALS: oropharynx normal Neck/C-Spine: COMMON NORMALS: no JVD Resp: COMMON NORMALS: normal respiratory effort and clear to auscultation bilaterally AUSCULTATION: clear to auscultation bilaterally Cardio: COMMON NORMALS: no JVD, regular rhythm, S1 normal heart sound present, S2 normal heart sound present and No murmurs present (Cardio) RHYTHM: regular rhythm HEART SOUNDS: S1 normal heart sound present and S2 normal heart sound present GI: COMMON NORMALS: Normal to inspection, nondistended, normoactive bowel sounds present, Soft to palpation and non-tender PALPATION: Yes Soft to palpation Extremity: COMMON NORMALS: no joint enlargement and no pedal edema Neuro: COMMON NORMALS: patient oriented x3 and moves all extremities SENSORIUM/ORIENTATION: Yes alert Skin: COMMON NORMALS: no rashes or lesions noted GENERAL SKIN EXAM: no rashes or lesions noted OTHER: Scattered bruising Urinary Catheter Management: Hooper: Cath Placed During This Visit: yes Reason for Continuing Indwelling Catheter: Other Urinary Catheter Date of Insertion: 06/24/23 Urinary Catheter Time of Insertion: 01:26 Data 06/26/23 05:53 06/26/23 05:53 Micro: Microbiology 06/24/23 07:02 Urine Culture - Final Urine Catheterized A&P Assessment and plan (1) Recurrent UTI: (2) Impaired mobility and ADLs: (3) Weakness: (4) Hypokalemia: (5) Lactic acidosis: Plan 67-year-old lady with recent discharge from the hospital after presenting here for generalized weakness. Discharged on 06/14 after diagnosis of UTI, and COVID-19 infection. Returned home, however has continued to have multiple episodes of nausea and vomiting. Patient estimates the symptoms have been ongoing for about a month now. Her diarrhea appears to have resolved as of yesterday. CT of the abdomen and pelvis performed recently on 06/12/2024 was significant for cholelithiasis without signs of cholecystitis. Nausea and vomiting: Resolving. For the first time she was able to tolerate a small meal for breakfast. Continue antiemetics. PPI. Nutritional supplementation due to Sebastian-en-Y. Stop phosphorus. Stop scopolamine patch. Continue Zofran, Reglan as needed. Replace multiple electrolyte and nutrient deficiencies. Appreciate RD consultation, note reviewed. Boost breeze is added. Physical deconditioning. Would benefit from SNF rehabilitation. Discussed with medical case manager. Possible gastroenteritis with fluid in small bowel.At risk of severe electrolyte and nutritional deficiencies given Sebastian-en-Y. Stool studies on previous admission negative for shigella/salmonella/campy. Pending C diff, Reviewed, noted received, pending. Rapid COVID-19 antigen, noted negative. Recent UTI:Reviewed urine culture, no growth on final culture. Recent UTI 06/12. C/o urinary hesitancy and burning, possibly has recurrent UTI, cont treatment based on previous cx with Levaquin and Ceftriaxone. Equivocal UA, reviewed, noted pending urine cx Continue home dose of Eliquis, midodrine and Fludrocortisone Recent h/o COVID 19 on 06/13 , Ag negative today, CXR without any abnormalities, no directed treatment indicated for now Incidentally noted collection in posterior aspect of inferior left rectus muscle. Findings suggest a resolving hematoma. Will need follow-up for resolution. PT/OT assessment for appropriate disposition planning Discussed with medical case manager. Arrangements for SNF. Should be able to discharge in the morning. Attestations Medical Necessity Statement*: Continue hospitalization for management of persistent nausea and vomiting, multiple nutritional deficiencies, enteritis, assessment for C. difficile, discharge planning and arrangements due to deconditioning. and High MDM includes amount and/or complexity of data reviewed/ordered [ resulted lab(s)/test(s) and other healthcare professional discussion] as documented Diagnoses Recurrent UTI N39.0 Impaired mobility and ADLs Z74.09; Z78.9 Weakness R53.1 Hypokalemia E87.6 Lactic acidosis E87.20
[2023-06-26] MEDS: pantoprazole 40 mg SDV IVP (19:50)
[2023-06-26 21:39] LABS: Zinc Level, Serum or Plasma 33 mcg/dL (60-130)
[2023-06-27] VITALS (78 sets, daily range): BP systolic 50–127; BP diastolic 0–85; PULSE 73–118; RESP 0–25; TEMP 36.6; O2SAT 92–98
[2023-06-27] MEDS: sodium chloride 0.9% 250 ML 999 ML IV (03:42)
--- NOTE | 2023-06-27 04:12 | PC.NURSE ---
called dr banks to report pt blood pressure 62/48 with a map of 52, asymptomatic. doctor gave telephone order to bolus 250ml NS and continue to monitor.
--- NOTE | 2023-06-27 05:16 | PC.NURSE ---
sent message updating dr banks of blood pressure being 72/48 with map of 56. while waiting for response recheck of blood pressure before calling the dr was 50 systolic with no diastolic heard. asked charge nurse to verify and listen. bp of 50 systolic with no diastolic heard by myself or the charge nurse. patient asymptomatic, alert and orientated, placed trendelenberg. when reaching the nurse station to call the dr the dr was calling the to speak with sheet writer, having read the messages. dr was updated as to the new blood pressure. received orderer for 1 L bolus with close monitoring and to update after with possible tx to ICU if patient does not respond to the bolus.
[2023-06-27] MEDS: sodium chloride 0.9% 1,000 ML 999 ML IV (05:35)
[2023-06-27] MEDS: cefTRIAXone 1,000 MG in sodium chloride 0.9% (plus) 50 ML 100 MG IV (05:49)
[2023-06-27] MEDS: levothyroxine 125 mcg Tablet PO (05:50)
[2023-06-27] MEDS: clopidogrel 75 mg Tablet PO (05:50)
[2023-06-27 06:24] LABS: Basophils % 0.3 %; Eosinophils # 0.2 10^3/uL (0.0-0.8); Eosinophils % 3.2 %; Hematocrit 27.4 % (36-47); Lymphocytes # 2.9 10^3/uL (0.8-4.8); Lymphocytes % 42.5 %; Mean Corpuscular HGB Conc 32.1 g/dL (30-55); Mean Corpuscular Hemoglobin 33.7 pg (27-33); Mean Platelet Volume 12.5 fL (7.4-10.4); Monocytes # 0.5 10^3/uL (0.2-0.9); Monocytes % 6.9 %; Neutrophils % 46.4 %; Nucleated Red Blood Cells % 0.6 %; Platelet Count 116 10^3/cmm (157-399); Red Blood Count 2.61 10^6/uL (3.85-5.65); Red Cell Distribution Width 19.3 % (12.1-15.1); White Blood Count 6.91 10^3/uL (3.29-11.43)
--- NOTE | 2023-06-27 06:39 | PC.NURSE ---
updated dr banks after 1 liter bolus of map of 49. order to transfer patient to ICU given and patient taken by bed.
[2023-06-27 06:43] LABS: Alanine Aminotransferase 18 U/L (0-33); Albumin Level 2.5 g/dL (3.5-5.2); Alkaline Phosphatase 69 U/L (35-105); Anion Gap 11.8 (5-19); Aspartate Amino Transferase 28 U/L (0-32); Blood Urea Nitrogen 9 mg/dL (8-23); Calcium 7.9 mg/dL (8.5-10.5); Carbon Dioxide 24 mmol/L (22-29); Chloride 106 mmol/L (98-107); Globulin 1.8 g/dL (1.3-4.6); Glomerular Filtration Rate 55.3 mL/min (90-130); Glucose 66 mg/dL (65-115); Osmolality Calculated 285 mOsm/kg (285-295); Sodium 139 mmol/L (136-145); Total Bilirubin 0.5 mg/dL (0.15-1.2); Total Protein 4.3 g/dL (6.6-8.7)
[2023-06-27] MEDS: norepinephrine 4 MG/250 ML BAG 7.5 MG IV (07:04)
[2023-06-27 07:05] LABS: Potassium 2.8 mmol/L (3.5-5.1)
--- NOTE | 2023-06-27 07:33 | PC.NURSE ---
called Evelia, patient's daughter to update on patient status change and transfer to ICU AT 0734.
--- NOTE | 2023-06-27 09:05 | ECG_ITS ---
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 Measurements Intervals [place] Rate: 90 P: 155 NE: 128 QRS: 221 QRSD: 126 T: 207 QT: 356 QTc: 437 Interpretive Statements ECTOPIC ATRIAL RHYTHM POSSIBLE LEFT ATRIAL ENLARGEMENT [-0.1mV P WAVE IN V1/V2] POSSIBLE RIGHT VENTRICULAR HYPERTROPHY [SOME/ALL OF: PROMINENT R IN V1, LATE TRANSITION, RAD, BENNIE, SSS] INFERIOR MYOCARDIAL INFARCTION [40+ ms Q WAVE AND/OR ST/T ABNORMALITY IN II/aVF], OF INDETERMINATE AGE MODERATE T-WAVE ABNORMALITY, CONSIDER LATERAL ISCHEMIA [-0.1+ mV T WAVE IN I/aVL/V5/V6] Compared to ECG 06/24/2023 00:33:37 Ectopic atrial rhythm now present T-wave abnormality now present Possible ischemia now present Sinus rhythm no longer present Sinus arrhythmia no longer present Myocardial infarct finding still present Electronically Signed On 06-27-2023 13:02:30 TECHNICAL SUPPORT 1 SOFTWARE ENGINEER by Gaston Yuan M.D. [id number]
[2023-06-27] MEDS: lidocaine 1% 5 ML in potassium chloride premix 100 ML 26.25 ML IV (09:21)
[2023-06-27] MEDS: midodrine 5 mg TABLET 10 MG PO ×3 (09:23→21:37)
[2023-06-27] MEDS: zinc gluconate 50 mg Tablet 25 MG PO (09:23)
[2023-06-27] MEDS: multivitamin therapeutic Tablet 2 TAB PO (09:24)
[2023-06-27] MEDS: fludrocortisone 0.1 mg Tablet PO (09:24)
[2023-06-27] MEDS: atorvastatin 40 mg Tablet PO (09:24)
[2023-06-27] MEDS: folic acid 1 mg Tablet PO (09:24)
[2023-06-27] MEDS: gabapentin 300 mg Capsule PO ×2 (09:24→16:54)
[2023-06-27] MEDS: cholecalciferol (vitamin D3) 1,000 unit Tablet 6000 UNIT PO (09:24)
[2023-06-27] MEDS: apixaban 5 mg Tablet 2.5 MG PO ×2 (09:35→21:37)
[2023-06-27] MEDS: calcium acetate 667 mg Capsule 1334 MG PO ×3 (09:35→16:54)
[2023-06-27] MEDS: cholecalciferol (vitamin D3) 5,000 unit Tablet 5000 UNIT PO (09:58)
[2023-06-27 10:03] LABS: Troponin(5th) Baseline 70 ng/L (0-10)
[2023-06-27] MEDS: levofloxacin-dextrose 5 % 500 MG/100 ML PREMIX 100 MG IV (10:58)
--- NOTE | 2023-06-27 11:05 | ECG_ITS ---
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 Measurements Intervals [place] Rate: 97 P: 22 SD: 127 QRS: -37 QRSD: 109 T: 162 QT: 369 QTc: 470 Interpretive Statements SINUS RHYTHM WITH FREQUENT SUPRAVENTRICULAR PREMATURE COMPLEXES IN A BIGEMINAL PATTERN PROBABLE ANTERIOR MYOCARDIAL INFARCTION [35 ms Q WAVE IN V3/V4], OF INDETERMINATE AGE INFERIOR MYOCARDIAL INFARCTION [40+ ms Q WAVE AND/OR ST/T ABNORMALITY IN II/aVF], PROBABLY OLD MODERATE T-WAVE ABNORMALITY, CONSIDER LATERAL ISCHEMIA [-0.1+ mV T WAVE IN I/aVL/V5/V6] Compared to ECG 06/27/2023 09:31:45 Ectopic atrial rhythm no longer present Myocardial infarct finding still present T-wave abnormality still present Possible ischemia still present Electronically Signed On 06-27-2023 13:04:11 DETACKER by Gaston Yuan M.D. [id number]
--- NOTE | 2023-06-27 11:14 | USCV_ITS ---
Peri Cid Age: 67 Gender: F : 1955 Exam Date: 06/27/2023 12:31 Ordering Phys: Max Thomas MD Technologist: Itz Slater Exam Location: [facility] [place] Indication: chf BP: 109 / 69 HR: 116 Rhythm: Sinus Technical Quality: Adequate MEASUREMENTS (Male / Female) Normal Values 2D ECHO LV Diastolic Diameter PLAX 3.8 cm 4.2 - 5.9 / 3.9 - 5.3 cm LV Systolic Diameter PLAX 2.5 cm IVS Diastolic Thickness 1.1 cm 0.6 - 1.0 / 0.6 - 0.9 cm IVS Systolic Thickness 1.6 cm LVPW Diastolic Thickness 1.3 cm 0.6 - 1.0 / 0.6 - 0.9 cm LVPW Systolic Thickness 1.5 cm LVOT Diameter 2.1 cm LV Ejection Fraction 2D Teich 65.6 % LV Ejection Fraction MOD 2C 60.0 % LV Ejection Fraction 2C AL 59.3 % LA Diameter 3.5 cm M-MODE Aortic Annulus Diameter 3.0 cm LA Ao Ratio MM 1.2 MV E Point Septal Separation 1.4 cm DOPPLER AV Peak Velocity 136.0 cm/s LVOT Peak Velocity 92.0 cm/s AV Area Cont Eq vti 3.1 cm squared AV Area Cont Eq pk 2.3 cm squared MV Area PHT 3.5 cm squared Mitral E to A Ratio 0.5 MV E' Velocity 33.5 cm/s Mitral E to MV E' Ratio 7.1 Mitral E to LV E' Lateral Ratio 5.7 Mitral E to LV E' Septal Ratio 9.2 TR Peak Velocity 147.7 cm/s TR Peak Gradient 8.7 mmHg FINDINGS Left Ventricle Normal left ventricular size and systolic function, EF 59 %. Mild left ventricular hypertrophy. No regional wall motion abnormalities. Grade I/IV diastolic dysfunction (abnormal relaxation filling pattern), normal to mildly elevated filling pressures. Right Ventricle The right ventricle is normal in size and function. Right Atrium The right atrium is normal in size. Left Atrium Mildly increased left atrial size. Mitral Valve Thickened mitral valve. Moderate mitral annular calcification. Mild mitral valve regurgitation. Aortic Valve No gross abnormalities noted Tricuspid Valve Trace tricuspid valve regurgitation. Pulmonic Valve Structurally normal pulmonic valve without significant stenosis. There is no pulmonic regurgitation. Pericardium Normal pericardium without effusion. Aorta Normal ascending aorta dimension. IVC Inferior vena cava not visualized. CONCLUSIONS Normal left ventricular size and systolic function, EF 59 %. Mild left ventricular hypertrophy. No regional wall motion abnormalities. Grade I/IV diastolic dysfunction (abnormal relaxation filling pattern), normal to mildly elevated filling pressures. Thickened mitral valve. Moderate mitral annular calcification. Trace tricuspid valve regurgitation. Mild mitral valve regurgitation. Estimated pulmonary artery peak systolic pressure, within normal limits There is no pericardial effusion. There are no intracardiac masses. Compared to the previous study from 01/29/2023, there may not be a significant change Dr Taylor Grande MD [facility] (Electronically Signed) Final Date: 27 June 2023 14:59 S
--- NOTE | 2023-06-27 11:43 | XR_ITS ---
WS: [id number] Portable AP upright chest, 06/27/2023 Clinical Data: Post PICC insertion Comparison: None. Findings: The left PICC line ends in the superior vena cava. No pneumothorax is seen. Impression: Satisfactory insertion of left PICC line.
[2023-06-27 11:52] LABS: Lipase 19 U/L (13-60); Troponin 5 2HR 53.04 ng/L (0-10)
[2023-06-27 11:58] LABS: Troponin 5 2HR Delta -16.96 ABS# (0-10)
--- NOTE | 2023-06-27 12:00 | PC.NURSE ---
Over the wire exchange of midline for triple lumen PICC performed to left basilic vein. Referred to vascular access nurse due to change in patient status and need for multiple IV meds, including vasopressors and antibiotics. Discussed risks and benefits of exchange with Dr. Thomas and patient with decision made to proceed with exchange. Using sterile technique, midline trimmed at hub with guide wire inserted without difficulty. Midline cath removed and 5 Spanish Bard triple lumen cath inserted. Trimmed length 42 cm with 1 cm external length noted. CXR shows tip in SVC, in good position for use per radiologist. Line secured with stat lock. Insertion site covered with Biopatch and TSM. Report given to bedside nurse, CELIA.
--- NOTE | 2023-06-27 12:51 | PC.NURSE ---
unable to obtain iv sites to start iv medication ,, midline infusing levophed not compatible with other ... lab work question result and repeated dending ... Picc nurse called to replace midline with triple lumen picc'
[2023-06-27] MEDS: albumin 25 G/100 ML BAG 60 G IV (13:15)
[2023-06-27 13:36] LABS: Anion Gap 11.8 (5-19); Blood Urea Nitrogen 11 mg/dL (8-23); Calcium 7.9 mg/dL (8.5-10.5); Carbon Dioxide 22 mmol/L (22-29); Chloride 106 mmol/L (98-107); Glomerular Filtration Rate 71.5 mL/min (90-130); Glucose 112 mg/dL (65-115); Magnesium 1.6 mg/dL (1.7-2.3); Osmolality Calculated 282 mOsm/kg (285-295); Potassium 3.8 mmol/L (3.5-5.1); Sodium 136 mmol/L (136-145)
[2023-06-27] MEDS: amiodarone 150 MG/100 ML PREMIX 400 MG IV (13:37)
[2023-06-27 13:45] LABS: Cortisol Random 9.68 ug/dL (2.47-19.5)
[2023-06-27] MEDS: phosphorus 250 mg Tablet PO ×2 (13:49→16:55)
[2023-06-27] MEDS: magnesium sulfate premix 4 GM/100 ML PREMIX IV (14:18)
[2023-06-27] MEDS: potassium chloride oral liq 20 mEq/15 mL UDC PO (14:19)
[2023-06-27] MEDS: piperacillin-tazobactam 3.375 GM in sodium chloride 0.9% (plus) 50 ML IV ×2 (14:20→21:38)
--- NOTE | 2023-06-27 14:41 | P.PN_ITS ---
Subjective 2 Subjective: She is feeling slightly better this morning but feeling very tired. She had a bit of a rough night, states was not feeling well earlier overnight. Blood pressure was low. No further vomiting. No diarrhea. Some bandlike abdominal discomfort around the lower abdomen. No chest pain or pressure at least at current time, she is not sure if had any earlier. Vitals/I&O/Wt Last Vital Signs Temp 97.8 F 06/27/23 08:15 Pulse 98 06/27/23 12:45 Resp 23 H 06/27/23 12:45 BP 109/69 06/27/23 12:45 Pulse Ox 93 06/27/23 12:45 O2 Del Method Room Air 06/27/23 08:00 O2 Flow Rate 2 06/26/23 22:00 06/26/23 06/27/23 06/27/23 22:59 06:59 14:59 Intake Total 240 / 580 1300 / 1880 354.875 / 354.875 Output Total 300 / 300 Balance 240 / 580 1000 / 1580 354.875 / 354.875 Weight last 48 hrs Weight 71.384 kg Weight 66.814 kg Physical Exam 2 Const: COMMON NORMALS: patient oriented x3 and alert GENERAL APPEARANCE: c ooperative ORIENTATION/CONSCIOUSNESS: Yes awake HENMT: COMMON NORMALS: oropharynx normal Neck/C-Spine: COMMON NORMALS: no JVD Resp: COMMON NORMALS: normal respiratory effort and clear to auscultation bilaterally AUSCULTATION: clear to auscultation bilaterally Cardio: COMMON NORMALS: no JVD, regular rhythm, S1 normal heart sound present, S2 normal heart sound present and No murmurs present (Cardio) RHYTHM: regular rhythm HEART SOUNDS: S1 normal heart sound present and S2 normal heart sound present GI: COMMON NORMALS: Normal to inspection, nondistended, normoactive bowel sounds present, Soft to palpation and non-tender PALPATION: Yes Soft to palpation Extremity: COMMON NORMALS: no joint enlargement and no pedal edema Neuro: COMMON NORMALS: patient oriented x3 and moves all extremities S ENSORIUM/ORIENTATION: Yes alert Skin: COMMON NORMALS: no rashes or lesions noted GENERAL SKIN EXAM: no rashes or lesions noted OTHER: Scattered bruising Urinary Catheter Management: Hooper: Cath Placed During This Visit: yes Reason for Continuing Indwelling Catheter: Assist Healing of Perineal & Sacral Wounds- Incontinent Patients Urinary Catheter Date of Insertion: 06/24/23 Urinary Catheter Time of Insertion: 01:26 Data 06/27/23 05:55 06/27/23 12:48 Micro: Microbiology 06/24/23 07:02 Urine Culture - Final Urine Catheterized A&P Assessment and plan (1) Recurrent UTI: (2) Impaired mobility and ADLs: (3) Weakness: (4) Hypokalemia: (5) Lactic acidosis: Plan 67-year-old lady with recent discharge from the hospital after presenting here for generalized weakness. Discharged on 06/14 after diagnosis of UTI, and COVID-19 infection. Returned home, however has continued to have multiple episodes of nausea and vomiting. Patient estimates the symptoms have been ongoing for about a month now. Her diarrhea appears to have resolved as of yesterday. CT of the abdomen and pelvis performed recently on 06/12/2024 was significant for cholelithiasis without signs of cholecystitis. Shock: Concern for cardiogenic shock with persistent hypotension, had received fluid resuscitation, reports feeling tired, weak pulse. Given cardiac history, hypotension, discussed with her additional assessment, requested EKG and troponin series, stat echo. Possible obstructive shock, discussed with her additional imaging. CT angiogram PE protocol as well as contrast CT abdomen pelvis. Discussed with respiratory care technician, requested CT of abdomen pelvis contra study to further assess for PE, any obvious thoracic dissection, assess for any retroperitoneal or other hematoma, follow-up on rectus sheath hematoma. Continue pressor support. Wean down as tolerating. Reviewed albumin, noted load again. Additional albumin requested. Discussed with her daughter. Additionally repeated cortisol level, noted only 9.7, given her condition not appropriate response, possible adrenal crisis. Continue fludrocortisone, requested hydrocortisone 100 mg every 6 hours. Less likely septic shock, afebrile, without leukocytosis. Already on antibiotic coverage, but broadening somewhat with continued Levaquin and switching from ceftriaxone to Zosyn. SVT: Developed self-limited run of SVT. Frequent PVCs, bigeminy. Started amiodarone drip. This morning hypokalemia, replaced potassium. Recheck chemistry, potassium 3.8, magnesium 1.6, given additional replacement. Nausea and vomiting: Resolving. For the first time she was able to tolerate a small meal for breakfast. Continue antiemetics. PPI. Nutritional supplementation due to Sebastian-en-Y. Stop scopolamine patch. Continue Zofran, Reglan as needed. Replace multiple electrolyte and nutrient deficiencies. Appreciate RD consultation, note reviewed. Boost breeze is added. Physical deconditioning. Would benefit from SNF rehabilitation. Discussed with shelter case manager. Possible gastroenteritis with fluid in small bowel.At risk of severe electrolyte and nutritional deficiencies given Sebastian-en-Y. Stool studies on previous admission negative for shigella/salmonella/campy. Pending C diff, Reviewed, noted received, pending. Rapid COVID-19 antigen, noted negative. Recent UTI:Reviewed urine culture, no growth on final culture. Recent UTI 06/12. C/o urinary hesitancy and burning, possibly has recurrent UTI, cont treatment based on previous cx with Levaquin and Ceftriaxone. Equivocal UA, reviewed, noted pending urine cx Continue home dose of Eliquis, midodrine and Fludrocortisone Recent h/o COVID 19 on 06/13 , Ag negative today, CXR without any abnormalities, no directed treatment indicated for now Incidentally noted collection in posterior aspect of inferior left rectus muscle. Findings suggest a resolving hematoma. Will need follow-up for resolution. PT/OT assessment for appropriate disposition planning Discussed with shelter case manager. Arrangements for SNF. Should be able to discharge in the morning. Attestations 2 Medical Necessity Statement*: Continue admission for assessment management of shock, suspected adrenal crisis. Coding Level of Care Code Critical Care >/= 30 minutes Critical care time (in minutes): 45 The high probability of a clinically significant, sudden or life threatening deterioration, as referenced in this documentation, required my full and direct attention, intervention and personal management. The critical care time shown is in addition to time spent performing any reported separately billable procedures and includes the following: [x] Data and vital sign review and interpretation [x ] Patient assessment, examination and intervention [x] Medication orders and management [x] Patient/Family updates as able [x] Care Coordination and Documentation. Diagnoses Recurrent UTI N39.0 Impaired mobility and ADLs Z74.09; Z78.9 Weakness R53.1 Hypokalemia E87.6 Lactic acidosis E87.20
--- NOTE | 2023-06-27 14:56 | CTR_ITS ---
PROCEDURE INFORMATION: Exam: CTA Chest With Contrast Exam date and time: 06/27/2023 3:12 PM Age: 67 years old Clinical indication: Abdominal pain; Chest pressure; Additional info: Assess for dissection, large pe, any active bleed, , reassess rectus sheath hematoma TECHNIQUE: Imaging protocol: Computed tomographic angiography of the chest with contrast. Exam focused on the arteries. 3D rendering (Not supervised by radiologist): MIP and/or 3D reconstructed images were created by the technologist. Contrast material: OMNI 350; Contrast volume: 125 ml; Contrast route: INTRAVENOUS (IV); COMPARISON: CR (CHEST, ) 06/23/2023 6:09 PM RADIATION DOSE METRICS: Total DLP (mGy-cm): 1002 FINDINGS: Pulmonary arteries: Normal. No pulmonary emboli. Aorta: No aortic aneurysm. No aortic dissection. Lungs: No consolidation. No masses. Pleural spaces: No pneumothorax. No pleural effusion. Heart: No cardiomegaly. No pericardial effusion. Lymph nodes: Multiple prominent mediastinal lymph nodes, most likely reactive. Bones/joints: No acute fracture. Soft tissues: Unremarkable. PROCEDURE INFORMATION: Exam: CT Abdomen And Pelvis With Contrast Exam date and time: 06/27/2023 3:12 PM Age: 67 years old Clinical indication: Abdominal pain; Chest pressure; Additional info: Assess for dissection, large pe, any active bleed, , reassess rectus sheath hematoma TECHNIQUE: Imaging protocol: Computed tomography of the abdomen and pelvis with contrast. Contrast material: OMNI 350; Contrast volume: 125 ml; Contrast route: INTRAVENOUS (IV); COMPARISON: CT abdomen pelvis w con* [id number] 06/24/2023 4:43 PM RADIATION DOSE METRICS: Total DLP (mGy-cm): 1002 FINDINGS: Liver: Trace perihepatic free fluid noted. No mass. Gallbladder and bile ducts: Large gallstone noted within the gallbladder measuring 5.6 cm in length. No ductal dilation. Pancreas: Normal. No ductal dilation. Spleen: Trace perisplenic free fluid noted. No splenomegaly. Adrenal glands: Normal. No mass. Kidneys and ureters: Linear 4 mm nonobstructing stone noted in the left kidney. No hydronephrosis. Stomach and bowel: Sequela of Sebastian-en-Y gastric bypass. No obstruction. No mucosal thickening. Colonic diverticulosis noted. Appendix: No evidence of appendicitis. Intraperitoneal space: Trace pelvic free fluid. No free air. No significant fluid collection. 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 No abdominal aortic aneurysm. Lymph nodes: Unremarkable. No enlarged lymph nodes. Urinary bladder: Hooper catheter noted within a decompressed bladder. Reproductive: Unremarkable as visualized. Bones/joints: No acute fracture. Soft tissues: No significant interval change to the rectus sheath hematoma. CT/CT angio chest w abd pel w con IMPRESSION: 1. No acute findings. Negative for pulmonary embolism or aortic dissection. 2. Multiple prominent mediastinal lymph nodes, most likely reactive. IMPRESSION: 1. Nonspecific trace perihepatic, perisplenic, and pelvic free fluid. 2. No significant interval change to the rectus sheath hematoma. 3. Cholelithiasis. 4. 4 mm nonobstructing stone in the left kidney.
--- NOTE | 2023-06-27 15:05 | ECG_ITS ---
[facility] Test Date: 2023-06-27 Pat Name: Peri Cid Department: Room: [facility] Gender: Female Slot Floorman: : 1955 Requested By: Max Thomas Order Number: [id number] Reading MD: Gaston Yuan M.D. Measurements Intervals [place] Rate: 105 P: -7 NM: 154 QRS: -38 QRSD: 107 T: 170 QT: 332 QTc: 439 Interpretive Statements SINUS TACHYCARDIA PATTERN CONSISTENT WITH PULMONARY DISEASE INFERIOR MYOCARDIAL INFARCTION [40+ ms Q WAVE AND/OR ST/T ABNORMALITY IN II/aVF], PROBABLY OLD Compared to ECG 06/27/2023 10:43:40 Sinus rhythm no longer present T-wave abnormality no longer present Possible ischemia no longer present Myocardial infarct finding still present Electronically Signed On 06-27-2023 18:34:48 GASOLINE DRAGLINE OPERATOR by Gaston Yuan M.D. [id number]
[2023-06-27 15:20] LABS: Clostridium Difficile PCR NOT DETECTED (NOT DETECTED)
[2023-06-27] MEDS: iohexol 350 mg/mL 500 mL Btl (per mL) IV (15:28)
[2023-06-27 16:40] LABS: Troponin 5 6HR 62.17 ng/L (0-10)
[2023-06-27] MEDS: hydrocortisone 100 mg/2 mL SDV IVP ×2 (16:53→21:50)
[2023-06-27 17:38] LABS: Basophils % 0.2 %; Eosinophils # 0.4 10^3/uL (0.0-0.8); Eosinophils % 3.1 %; Hematocrit 25.6 % (36-47); Lymphocytes # 3.8 10^3/uL (0.8-4.8); Lymphocytes % 31.8 %; Mean Corpuscular HGB Conc 32.8 g/dL (30-55); Mean Corpuscular Volume 103.6 fl (85-98); Mean Platelet Volume 12.6 fL (7.4-10.4); Monocytes # 0.8 10^3/uL (0.2-0.9); Neutrophils # 6.87 10^3/uL (1.8-7.7); Neutrophils % 57.2 %; Nucleated Red Blood Cells # 0.1 /100WBC; Nucleated Red Blood Cells % 0.5 %; Platelet Count 158 10^3/cmm (157-399); Red Blood Count 2.47 10^6/uL (3.85-5.65); Red Cell Distribution Width 19.3 % (12.1-15.1); White Blood Count 12.01 10^3/uL (3.29-11.43)
[2023-06-27] MEDS: norepinephrine 4 MG/250 ML BAG 15 MG IV (19:36)
[2023-06-27] MEDS: pantoprazole 40 mg SDV IVP (21:37)
[2023-06-27 22:14] LABS: Copper Level 63 mcg/dL (70-175)
[2023-06-28] VITALS (40 sets, daily range): BP systolic 86–136; BP diastolic 43–93; PULSE 71–94; RESP 13–34; TEMP 35.6–36.8; O2SAT 89–99; BMI 27.0
[2023-06-28 04:49] LABS: Basophils % 0.2 %; Hematocrit 28.9 % (36-47); Lymphocytes # 1.3 10^3/uL (0.8-4.8); Lymphocytes % 11.5 %; Mean Corpuscular HGB Conc 32.5 g/dL (30-55); Mean Corpuscular Hemoglobin 33.1 pg (27-33); Mean Corpuscular Volume 101.8 fl (85-98); Mean Platelet Volume 12.6 fL (7.4-10.4); Monocytes # 0.1 10^3/uL (0.2-0.9); Monocytes % 1.1 %; Neutrophils # 9.78 10^3/uL (1.8-7.7); Neutrophils % 86.2 %; Nucleated Red Blood Cells # 0.1 /100WBC; Nucleated Red Blood Cells % 0.7 %; Platelet Count 183 10^3/cmm (157-399); Red Blood Count 2.84 10^6/uL (3.85-5.65); Red Cell Distribution Width 18.9 % (12.1-15.1); White Blood Count 11.35 10^3/uL (3.29-11.43)
[2023-06-28] MEDS: piperacillin-tazobactam 3.375 GM in sodium chloride 0.9% (plus) 50 ML IV ×3 (05:09→22:03)
[2023-06-28] MEDS: hydrocortisone 100 mg/2 mL SDV IVP ×4 (05:10→22:03)
[2023-06-28] MEDS: clopidogrel 75 mg Tablet PO (05:10)
[2023-06-28] MEDS: levothyroxine 125 mcg Tablet PO (05:10)
[2023-06-28 05:15] LABS: Alanine Aminotransferase 23 U/L (0-33); Albumin Level 3.1 g/dL (3.5-5.2); Alkaline Phosphatase 82 U/L (35-105); Aspartate Amino Transferase 40 U/L (0-32); Blood Urea Nitrogen 10 mg/dL (8-23); Calcium 8.3 mg/dL (8.5-10.5); Carbon Dioxide 22 mmol/L (22-29); Chloride 103 mmol/L (98-107); Globulin 2.3 g/dL (1.3-4.6); Glomerular Filtration Rate 71.5 mL/min (90-130); Glucose 167 mg/dL (65-115); Osmolality Calculated 285 mOsm/kg (285-295); Sodium 136 mmol/L (136-145); Total Bilirubin 0.5 mg/dL (0.15-1.2); Total Protein 5.4 g/dL (6.6-8.7)
[2023-06-28 05:16] LABS: Magnesium 2.3 mg/dL (1.7-2.3); Phosphorus 2.4 mg/dL (2.5-4.5)
[2023-06-28] MEDS: norepinephrine 4 MG/250 ML BAG 15 MG IV (06:49)
[2023-06-28] MEDS: folic acid 1 mg Tablet PO (10:24)
[2023-06-28] MEDS: cholecalciferol (vitamin D3) 5,000 unit Tablet 5000 UNIT PO (10:25)
[2023-06-28] MEDS: fludrocortisone 0.1 mg Tablet PO (10:25)
[2023-06-28] MEDS: cholecalciferol (vitamin D3) 1,000 unit Tablet 1000 UNIT PO (10:25)
[2023-06-28] MEDS: atorvastatin 40 mg Tablet PO (10:25)
[2023-06-28] MEDS: zinc gluconate 50 mg Tablet 25 MG PO (10:25)
[2023-06-28] MEDS: gabapentin 300 mg Capsule PO ×2 (10:26→19:46)
[2023-06-28] MEDS: apixaban 5 mg Tablet 2.5 MG PO ×2 (10:26→20:16)
[2023-06-28] MEDS: multivitamin therapeutic Tablet 2 TAB PO (10:26)
[2023-06-28] MEDS: midodrine 5 mg TABLET 10 MG PO ×3 (10:26→20:16)
[2023-06-28] MEDS: calcium acetate 667 mg Capsule 1334 MG PO ×2 (10:26→19:45)
[2023-06-28] MEDS: phosphorus 250 mg Tablet PO ×2 (10:27→19:46)
[2023-06-28] MEDS: levofloxacin-dextrose 5 % 500 MG/100 ML PREMIX 100 MG IV (10:51)
--- NOTE | 2023-06-28 12:00 | PC.NURSE ---
Left AC and Right FA IV's discontinued. Catheters intact. Asymptomatic.
[2023-06-28 16:44] LABS: Vitamin K 127 pg/mL (130-1500)
--- NOTE | 2023-06-28 19:40 | P.PN_ITS ---
Subjective 2 Subjective: No additional changes today, her blood pressure has been getting low, still requiring pressor. Vitals/I&O/Wt Last Vital Signs Temp 98.3 F 06/28/23 16:46 Pulse 76 06/28/23 16:00 Resp 23 H 06/28/23 16:00 BP 99/56 06/28/23 16:00 Pulse Ox 95 06/28/23 16:00 O2 Del Method Room Air 06/28/23 08:40 O2 Flow Rate 2 06/26/23 22:00 06/28/23 06/28/23 06/28/23 06:59 14:59 22:59 Intake Total 404.398 / 2087.504 128.687 / 128.687 400 / 528.687 Output Total 450 / 1000 750 / 750 Balance -45.602 / 1087.504 128.687 / 128.687 -350 / -221.313 Weight last 48 hrs Weight 71.384 kg Weight 71.384 kg Physical Exam 2 Const: COMMON NORMALS: patient oriented x3 and alert GENERAL APPEARANCE: c ooperative ORIENTATION/CONSCIOUSNESS: Yes awake HENMT: COMMON NORMALS: oropharynx normal Neck/C-Spine: COMMON NORMALS: no JVD Resp: COMMON NORMALS: normal respiratory effort and clear to auscultation bilaterally AUSCULTATION: clear to auscultation bilaterally Cardio: COMMON NORMALS: no JVD, regular rhythm, S1 normal heart sound present, S2 normal heart sound present and No murmurs present (Cardio) RHYTHM: regular rhythm HEART SOUNDS: S1 normal heart sound present and S2 normal heart sound present GI: COMMON NORMALS: Normal to inspection, nondistended, normoactive bowel sounds present, Soft to palpation and non-tender PALPATION: Yes Soft to palpation Extremity: COMMON NORMALS: no joint enlargement and no pedal edema Neuro: COMMON NORMALS: patient oriented x3 and moves all extremities S ENSORIUM/ORIENTATION: Yes alert Skin: COMMON NORMALS: no rashes or lesions noted GENERAL SKIN EXAM: no rashes or lesions noted OTHER: Scattered bruising Urinary Catheter Management: Hooper: Cath Placed During This Visit: yes Reason for Continuing Indwelling Catheter: Accurate Measurement of Urinary Output in Critically Ill Patients Urinary Catheter Date of Insertion: 06/24/23 Urinary Catheter Time of Insertion: 01:26 Data 06/28/23 04:15 06/28/23 04:15 A&P Assessment and plan (1) Recurrent UTI: (2) Impaired mobility and ADLs: (3) Weakness: (4) Hypokalemia: (5) Lactic acidosis: Plan 67-year-old lady with recent discharge from the hospital after presenting here for generalized weakness. Discharged on 06/14 after diagnosis of UTI, and COVID-19 infection. Returned home, however has continued to have multiple episodes of nausea and vomiting. Patient estimates the symptoms have been ongoing for about a month now. Her diarrhea appears to have resolved as of yesterday. CT of the abdomen and pelvis performed recently on 06/12/2024 was significant for cholelithiasis without signs of cholecystitis. Shock: Continues to require pressors. Reviewed with her cardiac studies, reviewed with her echocardiogram, reviewed CT chest abdomen pelvis with CT angiogram PE protocol, no PE noted. Echocardiogram with normal ejection fraction, does have grade 1 diastolic dysfunction. Trace TVR. Mild MVR. Reviewed and discussed with her serum cortisol, noted inappropriately normal at 9.68 given her condition, discussed with her high suspicion for adrenal crisis. Started on hydrocortisone 100 mg every 6 hours yesterday. Continue. Continue fludrocortisone. Wean off pressors as tolerating. For now continue with broadened antibiotic coverage. Leukocytosis noted yesterday 12, today resolved down to 11.35. Reviewed urine culture, no growth after 1 day. Discussed with case sealer. SVT: Developed self-limited run of SVT. Frequent PVCs, bigeminy. Started amiodarone drip. This morning hypokalemia, replaced potassium. Recheck chemistry, potassium 3.8, magnesium 1.6, given additional replacement. Nausea and vomiting: Resolving. For the first time she was able to tolerate a small meal for breakfast. Continue antiemetics. PPI. Nutritional supplementation due to Sebastian-en-Y. Stop scopolamine patch. Continue Zofran, Reglan as needed. Replace multiple electrolyte and nutrient deficiencies. Appreciate RD consultation, note reviewed. Boost breeze is added. Physical deconditioning. Would benefit from SNF rehabilitation. Discussed with case sealer. Possible gastroenteritis with fluid in small bowel.At risk of severe electrolyte and nutritional deficiencies given Seabstian-en-Y. Stool studies on previous admission negative for shigella/salmonella/campy. Pending C diff, Reviewed, noted received, pending. Rapid COVID-19 antigen, noted negative. Recent UTI:Reviewed urine culture, no growth on final culture. Recent UTI 06/12. C/o urinary hesitancy and burning, possibly has recurrent UTI, cont treatment based on previous cx with Levaquin and Ceftriaxone. Equivocal UA, reviewed, noted pending urine cx Continue home dose of Eliquis, midodrine and Fludrocortisone Recent h/o COVID 19 on 06/13 , Ag negative today, CXR without any abnormalities, no directed treatment indicated for now Incidentally noted collection in posterior aspect of inferior left rectus muscle. Findings suggest a resolving hematoma. Will need follow-up for resolution. Attestations 2 Medical Necessity Statement*: Continue assessment management of shock, suspected due to adrenal crisis in a lady with underlying coronary disease, additional comorbidities. Coding Level of Care Code Critical Care >/= 30 minutes Critical care time (in minutes): 35 The high probability of a clinically significant, sudden or life threatening deterioration, as referenced in this documentation, required my full and direct attention, intervention and personal management. The critical care time shown is in addition to time spent performing any reported separately billable procedures and includes the following: [x] Data and vital sign review and interpretation [x ] Patient assessment, examination and intervention [x] Medication orders and management [x] Patient/Family updates as able [x] Care Coordination and Documentation. Diagnoses Recurrent UTI N39.0 Impaired mobility and ADLs Z74.09; Z78.9 Weakness R53.1 Hypokalemia E87.6 Lactic acidosis E87.20
[2023-06-28] MEDS: TRAMadol 50 mg Tablet PO (19:54)
[2023-06-28] MEDS: pantoprazole 40 mg SDV IVP (22:03)
--- NOTE | 2023-06-28 22:18 | PC.NURSE ---
Pt desating into high 80's when asleep, pt states she is on 2.5L NC @ HS. 2LNC applied, sating 96%. Rt notified.
[2023-06-29] VITALS (26 sets, daily range): BP systolic 100–134; BP diastolic 61–84; PULSE 77–114; RESP 10–43; TEMP 36.3–36.9; O2SAT 94–100
[2023-06-29 03:59] LABS: Basophils % 0.1 %; Eosinophils % 0.1 %; Hematocrit 25.1 % (36-47); Lymphocytes # 1.7 10^3/uL (0.8-4.8); Lymphocytes % 10.7 %; Mean Corpuscular HGB Conc 33.9 g/dL (30-55); Mean Corpuscular Hemoglobin 33.3 pg (27-33); Mean Corpuscular Volume 98.4 fl (85-98); Mean Platelet Volume 12.3 fL (7.4-10.4); Monocytes # 0.5 10^3/uL (0.2-0.9); Monocytes % 2.9 %; Neutrophils # 13.31 10^3/uL (1.8-7.7); Neutrophils % 85.4 %; Nucleated Red Blood Cells % 0.2 %; Platelet Count 168 10^3/cmm (157-399); Red Blood Count 2.55 10^6/uL (3.85-5.65); White Blood Count 15.58 10^3/uL (3.29-11.43)
[2023-06-29 04:38] LABS: Alanine Aminotransferase 36 U/L (0-33); Albumin Level 3.2 g/dL (3.5-5.2); Alkaline Phosphatase 107 U/L (35-105); Anion Gap 17.9 (5-19); Aspartate Amino Transferase 57 U/L (0-32); Blood Urea Nitrogen 12 mg/dL (8-23); Calcium 8.3 mg/dL (8.5-10.5); Carbon Dioxide 22 mmol/L (22-29); Chloride 101 mmol/L (98-107); Globulin 2.4 g/dL (1.3-4.6); Glomerular Filtration Rate 62.5 mL/min (90-130); Glucose 138 mg/dL (65-115); Osmolality Calculated 288 mOsm/kg (285-295); Sodium 138 mmol/L (136-145); Total Bilirubin 0.6 mg/dL (0.15-1.2); Total Protein 5.6 g/dL (6.6-8.7)
[2023-06-29 04:45] LABS: Potassium 2.9 mmol/L (3.5-5.1)
[2023-06-29] MEDS: piperacillin-tazobactam 3.375 GM in sodium chloride 0.9% (plus) 50 ML IV ×3 (04:57→20:43)
[2023-06-29] MEDS: hydrocortisone 100 mg/2 mL SDV IVP ×3 (04:57→17:45)
[2023-06-29] MEDS: levothyroxine 125 mcg Tablet PO (06:06)
[2023-06-29] MEDS: clopidogrel 75 mg Tablet PO (06:06)
[2023-06-29] MEDS: gabapentin 300 mg Capsule PO ×2 (08:36→17:45)
[2023-06-29] MEDS: apixaban 5 mg Tablet 2.5 MG PO ×2 (08:36→20:44)
[2023-06-29] MEDS: midodrine 5 mg TABLET 10 MG PO ×3 (08:36→20:43)
[2023-06-29] MEDS: zinc gluconate 50 mg Tablet 25 MG PO (08:37)
[2023-06-29] MEDS: calcium acetate 667 mg Capsule 1334 MG PO ×3 (08:37→17:45)
[2023-06-29] MEDS: fludrocortisone 0.1 mg Tablet PO (08:38)
[2023-06-29] MEDS: phosphorus 250 mg Tablet PO ×2 (08:38→17:45)
[2023-06-29] MEDS: folic acid 1 mg Tablet PO (08:38)
[2023-06-29] MEDS: atorvastatin 40 mg Tablet PO (08:38)
[2023-06-29] MEDS: cholecalciferol (vitamin D3) 1,000 unit Tablet 1000 UNIT PO (08:38)
[2023-06-29] MEDS: multivitamin therapeutic Tablet 2 TAB PO (08:39)
[2023-06-29] MEDS: cholecalciferol (vitamin D3) 5,000 unit Tablet 5000 UNIT PO (08:41)
--- NOTE | 2023-06-29 09:00 | PC.NURSE ---
This nurse commented on pt's breakfast tray and lack of eating food. 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
[2023-06-29] MEDS: levofloxacin-dextrose 5 % 500 MG/100 ML PREMIX 100 MG IV (11:38)
[2023-06-29] MEDS: potassium chloride oral liq 20 mEq/15 mL UDC 40 MEQ PO (11:53)
[2023-06-29] MEDS: TRAMadol 50 mg Tablet PO (19:02)
--- NOTE | 2023-06-29 20:00 | PC.NURSE ---
Shift summary: Pt has rested in the bed for most of the shift except for trips to use the BSC. She requires 2 assist as her legs are weak and buckle at times. Her mentation has varied today, started the shift off confused. She was oriented around lunch, then confused again ( which was shortly after IVP steroid that was ordered) . that period of confusio was brief then she was laughing and making jokes with her daughters this afternoon. Sinus rhythm noted on monitor all shift. Her urge to Bm comes on fairly quick. Liquid BM and flatus, large to copious, noted each BSC trip. 350ml of urine noted this shift in drake cath.
[2023-06-29] MEDS: pantoprazole 40 mg SDV IVP (20:43)
[2023-06-29] MEDS: lidocaine 5% Patch 1 PATCH TOPICAL (20:45)
--- NOTE | 2023-06-29 21:23 | P.PN_ITS ---
Subjective 2 Subjective: She is feeling somewhat better today. Blood pressure with improvement, has weaned off pressor. Appetite is not good, but she has been drinking protein shakes. Vitals/I&O/Wt Last Vital Signs Temp 98.1 F 06/29/23 20:00 Pulse 91 06/29/23 20:00 Resp 14 06/29/23 20:00 BP 133/83 06/29/23 20:00 Pulse Ox 99 06/29/23 20:00 O2 Del Method Nasal Cannula 06/29/23 20:00 O2 Flow Rate 2.5 06/29/23 20:00 06/29/23 06/29/23 06/29/23 06:59 14:59 22:59 Intake Total 50 / 558.687 800 / 800 50 / 850 Output Total 350 / 1100 600 / 600 350 / 950 Balance -300 / -541.313 200 / 200 -300 / -100 Weight last 48 hrs Weight 68.402 kg Weight 71.384 kg Physical Exam 2 Narrative: Appears less miserable today. Const: COMMON NORMALS: patient oriented x3 and alert GENERAL APPEARANCE: c ooperative ORIENTATION/CONSCIOUSNESS: Yes awake HENMT: COMMON NORMALS: oropharynx normal Neck/C-Spine: COMMON NORMALS: no JVD Resp: COMMON NORMALS: normal respiratory effort and clear to auscultation bilaterally AUSCULTATION: clear to auscultation bilaterally Cardio: COMMON NORMALS: no JVD, regular rhythm, S1 normal heart sound present, S2 normal heart sound present and No murmurs present (Cardio) RHYTHM: regular rhythm HEART SOUNDS: S1 normal heart sound present and S2 normal heart sound present GI: COMMON NORMALS: Normal to inspection, nondistended, normoactive bowel sounds present, Soft to palpation and non-tender PALPATION: Yes Soft to palpation Extremity: COMMON NORMALS: no joint enlargement and no pedal edema Neuro: COMMON NORMALS: patient oriented x3 and moves all extremities S ENSORIUM/ORIENTATION: Yes alert Skin: COMMON NORMALS: no rashes or lesions noted GENERAL SKIN EXAM: no rashes or lesions noted OTHER: Scattered bruising Urinary Catheter Management: Hooper: Cath Placed During This Visit: yes Reason for Continuing Indwelling Catheter: Accurate Measurement of Urinary Output in Critically Ill Patients Urinary Catheter Date of Insertion: 06/24/23 Urinary Catheter Time of Insertion: 01:26 Data 06/29/23 03:09 06/29/23 03:09 A&P Assessment and plan (1) Recurrent UTI: (2) Impaired mobility and ADLs: (3) Weakness: (4) Hypokalemia: (5) Lactic acidosis: Plan 67-year-old lady with recent discharge from the hospital after presenting here for generalized weakness. Discharged on 06/14 after diagnosis of UTI, and COVID-19 infection. Returned home, however has continued to have multiple episodes of nausea and vomiting. Patient estimates the symptoms have been ongoing for about a month now. Her diarrhea appears to have resolved as of yesterday. CT of the abdomen and pelvis performed recently on 06/12/2024 was significant for cholelithiasis without signs of cholecystitis. Shock: So far has resolved. Weaned off pressor. CBC, WBC noted elevated, hemoglobin reviewed, 8.5, with some fluctuation recently. Recheck. Platelets WNL. Reviewed chemistry, replace hypokalemia. Follow-up CBC, CMP. Continue hydrocortisone for treatment of adrenal crisis. Will decrease hydrocortisone dose to 50 mg. Monitor blood pressures. No PE on CTA. Echocardiogram with normal ejection fraction, does have grade 1 diastolic dysfunction. Trace TVR. Mild MVR. Reviewed and discussed with her serum cortisol, noted inappropriately normal at 9.68 given her condition, discussed with her high suspicion for adrenal crisis. Started on hydrocortisone 100 mg every 6 hours yesterday. Continue. Continue fludrocortisone. Wean off pressors as tolerating. For now continue with broadened antibiotic coverage. Leukocytosis noted yesterday 12, today resolved down to 11.35. Reviewed urine culture, no growth after 1 day. Discussed with caser shoe parts. SVT: Switch to oral amiodarone. No additional SVT so far. Developed self-limited run of SVT. Frequent PVCs, bigeminy. Started amiodarone drip. This morning hypokalemia, replaced potassium. Recheck chemistry, potassium 3.8, magnesium 1.6, given additional replacement. Nausea and vomiting: Resolving. For the first time she was able to tolerate a small meal for breakfast. Continue antiemetics. PPI. Nutritional supplementation due to Sebastian-en-Y. Stop scopolamine patch. Continue Zofran, Reglan as needed. Replace multiple electrolyte and nutrient deficiencies. Appreciate RD consultation, note reviewed. Boost breeze is added. Physical deconditioning. Would benefit from SNF rehabilitation. Discussed with caser shoe parts. Possible gastroenteritis with fluid in small bowel.At risk of severe electrolyte and nutritional deficiencies given Sebastian-en-Y. Stool studies on previous admission negative for shigella/salmonella/campy. Pending C diff, Reviewed, noted received, pending. Rapid COVID-19 antigen, noted negative. Recent UTI:Reviewed urine culture, no growth on final culture. Recent UTI 06/12. C/o urinary hesitancy and burning, possibly has recurrent UTI, cont treatment based on previous cx with Levaquin and Ceftriaxone. Equivocal UA, reviewed, noted pending urine cx Continue home dose of Eliquis, midodrine and Fludrocortisone Recent h/o COVID 19 on 06/13 , Ag negative today, CXR without any abnormalities, no directed treatment indicated for now Incidentally noted collection in posterior aspect of inferior left rectus muscle. Findings suggest a resolving hematoma. Will need follow-up for resolution. Attestations 2 Medical Necessity Statement*: Continue admission for assessment management of adrenal crisis, SVT, nutritional deficiencies, postdischarge planning and arrangements. and High MDM includes number and complexity of problems actively addressed during encounter as documented Diagnoses Recurrent UTI N39.0 Impaired mobility and ADLs Z74.09; Z78.9 Weakness R53.1 Hypokalemia E87.6 Lactic acidosis E87.20
--- NOTE | 2023-06-29 21:48 | PC.NURSE ---
Report given to BANG Walton, transferred to room 255-2 via wheelchair.
[2023-06-29] MEDS: hydrocortisone 100 mg/2 mL SDV 50 MG IVP (22:04)
[2023-06-29] MEDS: amiodarone 200 mg Tablet 400 MG PO (22:04)
[2023-06-30] VITALS (10 sets, daily range): BP systolic 114–133; BP diastolic 73–81; PULSE 88–110; RESP 16–19; TEMP 36.3–36.8; O2SAT 91–98; BMI 26.9
[2023-06-30 05:05] LABS: Basophils % 0.1 %; Hematocrit 23.9 % (36-47); Lymphocytes # 1.2 10^3/uL (0.8-4.8); Lymphocytes % 9.1 %; Mean Corpuscular HGB Conc 33.1 g/dL (30-55); Mean Corpuscular Hemoglobin 34.3 pg (27-33); Mean Corpuscular Volume 103.9 fl (85-98); Mean Platelet Volume 12.5 fL (7.4-10.4); Monocytes # 0.7 10^3/uL (0.2-0.9); Monocytes % 5.2 %; Neutrophils # 11.51 10^3/uL (1.8-7.7); Nucleated Red Blood Cells % 0.1 %; Platelet Count 160 10^3/cmm (157-399); Red Cell Distribution Width 19.8 % (12.1-15.1)
[2023-06-30 05:33] LABS: Alanine Aminotransferase 34 U/L (0-33); Alkaline Phosphatase 88 U/L (35-105); Anion Gap 16.7 (5-19); Aspartate Amino Transferase 47 U/L (0-32); Blood Urea Nitrogen 12 mg/dL (8-23); Calcium 8.3 mg/dL (8.5-10.5); Carbon Dioxide 21 mmol/L (22-29); Chloride 103 mmol/L (98-107); Globulin 2.1 g/dL (1.3-4.6); Glomerular Filtration Rate 55.3 mL/min (90-130); Glucose 137 mg/dL (65-115); Osmolality Calculated 288 mOsm/kg (285-295); Sodium 138 mmol/L (136-145); Total Bilirubin 0.4 mg/dL (0.15-1.2); Total Protein 5.1 g/dL (6.6-8.7)
[2023-06-30 05:37] LABS: Potassium 2.7 mmol/L (3.5-5.1)
[2023-06-30] MEDS: piperacillin-tazobactam 3.375 GM in sodium chloride 0.9% (plus) 50 ML IV ×3 (06:16→20:47)
[2023-06-30] MEDS: levothyroxine 125 mcg Tablet PO (06:16)
[2023-06-30] MEDS: clopidogrel 75 mg Tablet PO (06:16)
[2023-06-30] MEDS: hydrocortisone 100 mg/2 mL SDV 50 MG IVP ×4 (06:17→22:26)
[2023-06-30] MEDS: potassium chloride ER 20 mEq Tablet 40 MEQ PO (06:32)
[2023-06-30] MEDS: cholecalciferol (vitamin D3) 1,000 unit Tablet 1000 UNIT PO (08:55)
[2023-06-30] MEDS: amiodarone 200 mg Tablet 400 MG PO ×2 (08:56→18:05)
[2023-06-30] MEDS: fludrocortisone 0.1 mg Tablet PO (08:56)
[2023-06-30] MEDS: folic acid 1 mg Tablet PO (08:56)
[2023-06-30] MEDS: gabapentin 300 mg Capsule PO ×2 (08:56→18:05)
[2023-06-30] MEDS: phosphorus 250 mg Tablet PO ×2 (08:56→18:05)
[2023-06-30] MEDS: midodrine 5 mg TABLET 10 MG PO ×3 (08:56→20:47)
[2023-06-30] MEDS: calcium acetate 667 mg Capsule 1334 MG PO ×3 (08:56→18:05)
[2023-06-30] MEDS: multivitamin therapeutic Tablet 2 TAB PO (08:56)
[2023-06-30] MEDS: zinc gluconate 50 mg Tablet 25 MG PO (08:56)
[2023-06-30] MEDS: apixaban 5 mg Tablet 2.5 MG PO ×2 (08:57→20:47)
[2023-06-30] MEDS: cholecalciferol (vitamin D3) 5,000 unit Tablet 5000 UNIT PO (08:57)
[2023-06-30] MEDS: atorvastatin 40 mg Tablet PO (08:57)
[2023-06-30] MEDS: lidocaine 5% Patch 1 PATCH TOPICAL ×2 (09:01→23:52)
--- NOTE | 2023-06-30 10:31 | XRR_ITS ---
PROCEDURE INFORMATION: Exam: XR Chest Exam date and time: 06/30/2023 12:40 PM Age: 67 years old Clinical indication: Dyspnea TECHNIQUE: Imaging protocol: Radiologic exam of the chest. Views: 1 view. COMPARISON: CT angio chest w abd pel w con 06/27/2023 3:12 PM. Chest x-ray June 27, 2023. FINDINGS: Tubes, catheters and devices: Unchanged left arm PICC terminating in the low SVC. Lungs: New mild, diffuse bilateral pulmonary edema and/or pneumonitis. If pneumonitis, this may be atypical pneumonia. Pleural spaces: Unremarkable. No pleural effusion. No pneumothorax. Heart/Mediastinum: Unremarkable. No cardiomegaly. Bones/joints: Unchanged mild scoliosis and multilevel spondylosis. XR/XR chest 1V portable [id number] IMPRESSION: New diffuse bilateral pulmonary edema and/or pneumonitis.
[2023-06-30] MEDS: levofloxacin-dextrose 5 % 500 MG/100 ML PREMIX 100 MG IV (12:04)
[2023-06-30 13:33] LABS: Magnesium 1.9 mg/dL (1.7-2.3)
[2023-06-30] MEDS: pantoprazole 40 mg SDV IVP (22:26)
--- NOTE | 2023-06-30 23:49 | P.PN_ITS ---
Subjective 2 Subjective: Today she is feeling better. She had a good night. Vitals/I&O/Wt Last Vital Signs Temp 98.2 F 06/30/23 19:43 Pulse 106 H 06/30/23 20:00 Resp 16 06/30/23 20:00 BP 123/81 06/30/23 19:43 Pulse Ox 98 06/30/23 20:00 O2 Del Method Room Air 06/30/23 20:00 O2 Flow Rate 1.5 06/30/23 20:00 06/30/23 06/30/23 07/01/23 14:59 22:59 06:59 Intake Total 1210 / 1210 530 / 1740 Balance 1210 / 1210 530 / 1740 Weight last 48 hrs Weight 71.123 kg Weight 68.402 kg Physical Exam 2 Const: COMMON NORMALS: patient oriented x3 and alert GENERAL APPEARANCE: c ooperative ORIENTATION/CONSCIOUSNESS: Yes awake HENMT: COMMON NORMALS: oropharynx normal Neck/C-Spine: COMMON NORMALS: no JVD Resp: COMMON NORMALS: normal respiratory effort and clear to auscultation bilaterally AUSCULTATION: clear to auscultation bilaterally Cardio: COMMON NORMALS: no JVD, regular rhythm, S1 normal heart sound present, S2 normal heart sound present and No murmurs present (Cardio) RHYTHM: regular rhythm HEART SOUNDS: S1 normal heart sound present and S2 normal heart sound present GI: COMMON NORMALS: Normal to inspection, nondistended, normoactive bowel sounds present, Soft to palpation and non-tender PALPATION: Yes Soft to palpation Extremity: COMMON NORMALS: no joint enlargement and no pedal edema Neuro: COMMON NORMALS: patient oriented x3 and moves all extremities S ENSORIUM/ORIENTATION: Yes alert Skin: COMMON NORMALS: no rashes or lesions noted GENERAL SKIN EXAM: no rashes or lesions noted OTHER: Scattered bruising Urinary Catheter Management: Hooper: Cath Placed During This Visit: yes Reason for Continuing Indwelling Catheter: Accurate Measurement of Urinary Output in Critically Ill Patients Urinary Catheter Date of Insertion: 06/24/23 Urinary Catheter Time of Insertion: 01:26 Data 06/30/23 04:46 06/30/23 13:00 A&P Assessment and plan (1) Recurrent UTI: (2) Impaired mobility and ADLs: (3) Weakness: (4) Hypokalemia: (5) Lactic acidosis: Plan 67-year-old lady with recent discharge from the hospital after presenting here for generalized weakness. Discharged on 06/14 after diagnosis of UTI, and COVID-19 infection. Returned home, however has continued to have multiple episodes of nausea and vomiting. Patient estimates the symptoms have been ongoing for about a month now. Her diarrhea appears to have resolved as of yesterday. CT of the abdomen and pelvis performed recently on 06/12/2024 was significant for cholelithiasis without signs of cholecystitis. Shock: Improved. So far doing better. Will cut down hydrocortisone dose to 25 mg every 6 hours. Reviewed vitals, CBC, CMP. Continue hydrocortisone for treatment of adrenal crisis. Monitor blood pressures. No PE on CTA. Echocardiogram with normal ejection fraction, does have grade 1 diastolic dysfunction. Trace TVR. Mild MVR. Reviewed and discussed with her serum cortisol, noted inappropriately normal at 9.68 given her condition, discussed with her high suspicion for adrenal crisis. Started on hydrocortisone 100 mg every 6 hours yesterday. Continue. Continue fludrocortisone. For now continue with broadened antibiotic coverage. Reviewed urine culture, no growth - final. SVT: oral amiodarone. No additional SVT so far. Given additional potassium for hypokalemia. Recheck chemistry. Developed self-limited run of SVT. Frequent PVCs, bigeminy. Nausea and vomiting: Resolving. For the first time she was able to tolerate a small meal for breakfast. Continue antiemetics. PPI. Nutritional supplementation due to Sebastian-en-Y. Stop scopolamine patch. Continue Zofran, Reglan as needed. Replace multiple electrolyte and nutrient deficiencies. Appreciate RD consultation, note reviewed. Boost breeze is added. Physical deconditioning. Would benefit from SNF rehabilitation. Discussed with upper caser. Possible gastroenteritis with fluid in small bowel.At risk of severe electrolyte and nutritional deficiencies given Sebastian-en-Y. Stool studies on previous admission negative for shigella/salmonella/campy. Pending C diff, Reviewed, noted received, pending. Rapid COVID-19 antigen, noted negative. Recent UTI:Reviewed urine culture, no growth on final culture. Recent UTI 06/12. C/o urinary hesitancy and burning, possibly has recurrent UTI, cont treatment based on previous cx with Levaquin and Ceftriaxone. Equivocal UA, reviewed, noted pending urine cx Continue home dose of Eliquis, midodrine and Fludrocortisone Recent h/o COVID 19 on 06/13 , Ag negative today, CXR without any abnormalities, no directed treatment indicated for now Incidentally noted collection in posterior aspect of inferior left rectus muscle. Findings suggest a resolving hematoma. Will need follow-up for resolution. Attestations 2 Medical Necessity Statement*: Continue admission for assessment management of adrenal crisis, SVT, nutritional deficiencies, postdischarge planning and arrangements. Diagnoses Recurrent UTI N39.0 Impaired mobility and ADLs Z74.09; Z78.9 Weakness R53.1 Hypokalemia E87.6 Lactic acidosis E87.20
[2023-07-01] VITALS (9 sets, daily range): BP systolic 111–138; BP diastolic 75–85; PULSE 85–108; RESP 16–20; TEMP 36.2–36.7; O2SAT 90–96; BMI 27.0
[2023-07-01] MEDS: phytonadione (ADULT) 10 mg/mL Ampule 1 mL 2.5 MG PO (00:47)
[2023-07-01] MEDS: hydrocortisone 100 mg/2 mL SDV 25 MG IVP ×3 (04:48→15:37)
[2023-07-01] MEDS: piperacillin-tazobactam 3.375 GM in sodium chloride 0.9% (plus) 50 ML IV ×3 (05:19→20:32)
[2023-07-01] MEDS: levothyroxine 125 mcg Tablet PO (05:20)
[2023-07-01] MEDS: clopidogrel 75 mg Tablet PO (05:20)
[2023-07-01 05:52] LABS: Basophils % 0.2 %; Hematocrit 25.3 % (36-47); Lymphocytes # 1.8 10^3/uL (0.8-4.8); Lymphocytes % 13.8 %; Mean Corpuscular HGB Conc 32.4 g/dL (30-55); Mean Corpuscular Hemoglobin 33.5 pg (27-33); Mean Corpuscular Volume 103.3 fl (85-98); Mean Platelet Volume 12.1 fL (7.4-10.4); Monocytes # 0.8 10^3/uL (0.2-0.9); Monocytes % 6.1 %; Neutrophils # 10.34 10^3/uL (1.8-7.7); Neutrophils % 77.9 %; Nucleated Red Blood Cells % 0.2 %; Platelet Count 164 10^3/cmm (157-399); Red Blood Count 2.45 10^6/uL (3.85-5.65); Red Cell Distribution Width 19.8 % (12.1-15.1); White Blood Count 13.28 10^3/uL (3.29-11.43)
[2023-07-01 06:04] LABS: INR 1.31 (0.8-1.2)
[2023-07-01 06:19] LABS: Alanine Aminotransferase 42 U/L (0-33); Alkaline Phosphatase 81 U/L (35-105); Anion Gap 14.8 (5-19); Aspartate Amino Transferase 61 U/L (0-32); Blood Urea Nitrogen 13 mg/dL (8-23); Calcium 8.4 mg/dL (8.5-10.5); Carbon Dioxide 23 mmol/L (22-29); Chloride 106 mmol/L (98-107); Creatinine Clr Calc Pharmacy 52.8804; Globulin 2.1 g/dL (1.3-4.6); Glomerular Filtration Rate 55.3 mL/min (90-130); Glucose 103 mg/dL (65-115); Osmolality Calculated 292 mOsm/kg (285-295); Sodium 141 mmol/L (136-145); Total Bilirubin 0.5 mg/dL (0.15-1.2); Total Protein 5.1 g/dL (6.6-8.7)
[2023-07-01 06:20] LABS: Potassium 2.8 mmol/L (3.5-5.1)
[2023-07-01] MEDS: lidocaine 1% 5 ML in potassium chloride premix 100 ML 26.25 ML IV (08:56)
[2023-07-01] MEDS: apixaban 5 mg Tablet 2.5 MG PO ×2 (08:57→20:25)
[2023-07-01] MEDS: cholecalciferol (vitamin D3) 5,000 unit Tablet 5000 UNIT PO (08:58)
[2023-07-01] MEDS: multivitamin therapeutic Tablet 2 TAB PO (08:58)
[2023-07-01] MEDS: folic acid 1 mg Tablet PO (08:58)
[2023-07-01] MEDS: midodrine 5 mg TABLET 10 MG PO ×3 (08:58→20:26)
[2023-07-01] MEDS: zinc gluconate 50 mg Tablet 25 MG PO (08:58)
[2023-07-01] MEDS: calcium acetate 667 mg Capsule 1334 MG PO ×3 (08:58→15:36)
[2023-07-01] MEDS: fludrocortisone 0.1 mg Tablet PO (08:59)
[2023-07-01] MEDS: phosphorus 250 mg Tablet PO ×2 (08:59→15:36)
[2023-07-01] MEDS: cholecalciferol (vitamin D3) 1,000 unit Tablet 1000 UNIT PO (08:59)
[2023-07-01] MEDS: amiodarone 200 mg Tablet 400 MG PO ×2 (08:59→15:36)
[2023-07-01] MEDS: gabapentin 300 mg Capsule PO ×2 (08:59→15:36)
[2023-07-01] MEDS: atorvastatin 40 mg Tablet PO (08:59)
[2023-07-01] MEDS: lidocaine 5% Patch 1 PATCH TOPICAL (09:05)
[2023-07-01] MEDS: potassium chloride ER 20 mEq Tablet 80 MEQ PO (10:04)
[2023-07-01] MEDS: metoprolol tartrate 25 mg Tablet 12.5 MG PO ×2 (11:07→20:25)
--- NOTE | 2023-07-01 11:09 | PC.SOCIAL ---
IMM Updated Updated pt on IMM. No questions voiced. Provided her a copy. Initialed, dated, & timed copy in chart.
--- NOTE | 2023-07-01 12:25 | ECG_ITS ---
[facility] Test Date: 2023-07-01 Pat Name: Peri Cid Department: Room: 255 Gender: Female Wax Pumper: : 1955 Requested By: Roney Flores Order Number: [id number] Arturo MD: Gaston Yuan M.D. Measurements Intervals [place] Rate: 87 P: 26 AL: 135 QRS: -15 QRSD: 106 T: 36 QT: 350 QTc: 422 Interpretive Statements SINUS RHYTHM POSSIBLE LATERAL MYOCARDIAL INFARCTION , PROBABLY OLD [30 ms Q WAVE IN I/aVL/V5/V6] INFERIOR MYOCARDIAL INFARCTION , PROBABLY OLD [40+ ms Q WAVE AND/OR ST/T ABNORMALITY IN II/aVF] Compared to ECG 06/27/2023 14:38:10 Sinus tachycardia no longer present Myocardial infarct finding still present Electronically Signed On 07-01-2023 15:28:16 NATIONAL [employer]ION RE[employer] by Gaston Yuan M.D. [id number]
--- NOTE | 2023-07-01 12:45 | PC.NURSE ---
Telemetry shows that pt HR is tachy at 200; however, on assessment this nurse obtains an apical pulse of 90. EKG completed for confirmation and pt is NSR with a HR of 87.
--- NOTE | 2023-07-01 14:50 | P.PN_ITS ---
Subjective 2 Subjective: Hospital course, labs appreciated. On examination patient laying comfortably in bed on phone. Denies any nausea vomiting, headache. Is awake and alert. On 2 L of oxygen supplementation saturating more than 95%. Vitals/I&O/Wt Last Vital Signs Temp 97.5 F L 07/01/23 11:13 Pulse 97 07/01/23 11:13 Resp 20 H 07/01/23 11:13 BP 138/79 07/01/23 11:13 Pulse Ox 96 07/01/23 11:13 O2 Del Method Nasal Cannula 07/01/23 11:13 O2 Flow Rate 1.5 07/01/23 00:00 06/30/23 07/01/23 07/01/23 22:59 06:59 14:59 Intake Total 530 / 1740 50 / 1790 635 / 635 Output Total 250 / 250 Balance 530 / 1740 -200 / 1540 635 / 635 Weight last 48 hrs Weight 71.35 kg Weight 71.123 kg Physical Exam 2 Const: COMMON NORMALS: patient oriented x3 and alert GENERAL APPEARANCE: c ooperative ORIENTATION/CONSCIOUSNESS: Yes awake HENMT: COMMON NORMALS: oropharynx normal Neck/C-Spine: COMMON NORMALS: no JVD Resp: COMMON NORMALS: normal respiratory effort and clear to auscultation bilaterally AUSCULTATION: clear to auscultation bilaterally Cardio: COMMON NORMALS: no JVD, regular rhythm, S1 normal heart sound present, S2 normal heart sound present and No murmurs present (Cardio) RHYTHM: regular rhythm HEART SOUNDS: S1 normal heart sound present and S2 normal heart sound present GI: COMMON NORMALS: Normal to inspection, nondistended, normoactive bowel sounds present, Soft to palpation and non-tender PALPATION: Yes Soft to palpation Extremity: COMMON NORMALS: no joint enlargement and no pedal edema Neuro: COMMON NORMALS: patient oriented x3 and moves all extremities S ENSORIUM/ORIENTATION: Yes alert Skin: COMMON NORMALS: no rashes or lesions noted GENERAL SKIN EXAM: no rashes or lesions noted OTHER: Scattered bruising Urinary Catheter Management: Hooper: Cath Placed During This Visit: yes Reason for Continuing Indwelling Catheter: Acute Urinary Retention or Obstruction Urinary Catheter Date of Insertion: 06/24/23 Urinary Catheter Time of Insertion: 01:26 Data 07/01/23 05:18 07/01/23 05:18 A&P Assessment and plan (1) Adrenal insufficiency: (2) Recurrent UTI: (3) Impaired mobility and ADLs: (4) Weakness: (5) Hypokalemia: (6) Lactic acidosis: (7) Type 2 diabetes mellitus with diabetic nephropathy: Qualifiers: Diabetes mellitus senior living insulin use: unspecified tank terminal gauger insulin use status Qualified Code(s): E11.21 - Type 2 diabetes mellitus with diabetic nephropathy (8) Acquired hypothyroidism: (9) Severe protein-calorie malnutrition: (10) Nonsustained ventricular tachycardia: Plan 67-year-old lady with recent discharge from the hospital after presenting here for generalized weakness. Discharged on 06/14 after diagnosis of UTI, and COVID-19 infection. Returned home, however has continued to have multiple episodes of nausea and vomiting. Patient estimates the symptoms have been ongoing for about a month now. Her diarrhea appears to have resolved as of yesterday. CT of the abdomen and pelvis performed recently on 06/12/2024 was significant for cholelithiasis without signs of cholecystitis. Shock: Seems to be improving. No blood cultures taken during that time. Urine culture so far negative.?E. coli and Pseudomonas. Discontinue Levaquin As Patient Has Been on Levaquin since Admission. Continue Zosyn to Finish a 5-Day Course. Given History of Adrenal Crisis Continue with Hydrocortisone. Will Wean down to 25 Mg Every 8 Hourly. Continue with Oral Fludrocortisone. Continue with Midodrine Home Dose 10 Mg 3 Times Daily. Goal Mean Artery Pressure over 65 Less Than 140/90 mmHg. Will Titrate Medications Accordingly. SVT: Most Likely in Setting of Levophed While in the ICU. Monitor Electrolytes. Replete Potassium. Keep around 4. Check Magnesium Level. Replete 120 Mg of Oral Potassium. Continue with Oral Amiodarone 400 Mg Twice Daily. Will Plan for Taper As per Protocol. Nausea and vomiting: Resolving. Continue antiemetics. PPI. Nutritional supplementation due to Sebastian-en-Y. Stop scopolamine patch. Continue Zofran, Reglan as needed. Replace multiple electrolyte and nutrient deficiencies. Appreciate RD consultation, note reviewed. Boost breeze is added. Physical deconditioning. Would benefit from SNF rehabilitation. Discussed with lead case manager. Severe physical deconditioning At risk of multiple electrolyte abnormalities Incidentally noted collection in posterior aspect of inferior left rectus muscle. Findings suggest a resolving hematoma. Will need follow-up for resolution with a CT scan in 6 months. Full code Cardiac diet Protonix for PUD prophylaxis Lore wests DVT prophylaxis. Discharge plan: Plan to discharge to SNF. Patient has been accepted. Prior authorization awaited. Will discharge once prior authorization obtained. Attestations 2 Medical Necessity Statement*: Requires further hospitalization for management of adrenal crisis leading to shock in a patient with recurrent UTIs, severe physical deconditioning while safe discharge planning is sought Diagnoses Adrenal insufficiency E27.40 Recurrent UTI N39.0 Impaired mobility and ADLs Z74.09; Z78.9 Weakness R53.1 Hypokalemia E87.6 Lactic acidosis E87.20 Type 2 diabetes mellitus with diabetic nephropathy, unspecified whether senior living insulin use E11.21 Diabetes mellitus senior living insulin use: unspecified tank terminal gauger insulin use status Acquired hypothyroidism E03.9 Severe protein-calorie malnutrition E43 Nonsustained ventricular tachycardia I47.29
[2023-07-01] MEDS: TRAMadol 50 mg Tablet PO (15:35)
--- NOTE | 2023-07-01 18:35 | PC.NURSE ---
Pt outside parameter of the voiding trial of 6h. Bladder scan shows a maximum amount of 76ml in bladder. Notifies Dr. Flores. No new orders, he encourages fluids on pt and monitoring for further retention.
[2023-07-01] MEDS: acetaminophen 325 mg Tablet 650 MG PO (20:29)
[2023-07-01] MEDS: pantoprazole 40 mg SDV IVP (21:16)
[2023-07-02] VITALS (9 sets, daily range): BP systolic 106–125; BP diastolic 72–84; PULSE 73–97; RESP 16–18; TEMP 36.3–36.8; O2SAT 90–98
[2023-07-02] MEDS: TRAMadol 50 mg Tablet PO (00:36)
[2023-07-02] MEDS: hydrocortisone 100 mg/2 mL SDV 25 MG IVP ×3 (00:42→21:31)
[2023-07-02 05:29] LABS: Basophils % 0.1 %; Hematocrit 25.9 % (36-47); Lymphocytes # 2.3 10^3/uL (0.8-4.8); Lymphocytes % 17.2 %; Mean Corpuscular Hemoglobin 33.7 pg (27-33); Mean Corpuscular Volume 105.3 fl (85-98); Mean Platelet Volume 12.4 fL (7.4-10.4); Monocytes # 0.9 10^3/uL (0.2-0.9); Monocytes % 6.7 %; Neutrophils # 9.72 10^3/uL (1.8-7.7); Neutrophils % 74.2 %; Nucleated Red Blood Cells % 0.3 %; Platelet Count 180 10^3/cmm (157-399); Red Blood Count 2.46 10^6/uL (3.85-5.65); Red Cell Distribution Width 20.1 % (12.1-15.1); White Blood Count 13.09 10^3/uL (3.29-11.43)
[2023-07-02] MEDS: levothyroxine 125 mcg Tablet PO (05:42)
[2023-07-02] MEDS: piperacillin-tazobactam 3.375 GM in sodium chloride 0.9% (plus) 50 ML IV (05:42)
[2023-07-02] MEDS: clopidogrel 75 mg Tablet PO (05:42)
[2023-07-02 05:49] LABS: Alanine Aminotransferase 45 U/L (0-33); Albumin Level 3.2 g/dL (3.5-5.2); Alkaline Phosphatase 73 U/L (35-105); Anion Gap 13.5 (5-19); Aspartate Amino Transferase 68 U/L (0-32); Blood Urea Nitrogen 22 mg/dL (8-23); Carbon Dioxide 24 mmol/L (22-29); Chloride 106 mmol/L (98-107); Globulin 2.1 g/dL (1.3-4.6); Glomerular Filtration Rate 55.3 mL/min (90-130); Glucose 112 mg/dL (65-115); Osmolality Calculated 292 mOsm/kg (285-295); Potassium 4.5 mmol/L (3.5-5.1); Sodium 139 mmol/L (136-145); Total Bilirubin 0.5 mg/dL (0.15-1.2); Total Protein 5.3 g/dL (6.6-8.7)
[2023-07-02] MEDS: calcium acetate 667 mg Capsule 1334 MG PO ×3 (09:49→18:04)
[2023-07-02] MEDS: cholecalciferol (vitamin D3) 1,000 unit Tablet 1000 UNIT PO (09:50)
[2023-07-02] MEDS: atorvastatin 40 mg Tablet PO (09:50)
[2023-07-02] MEDS: zinc gluconate 50 mg Tablet 25 MG PO (09:50)
[2023-07-02] MEDS: phosphorus 250 mg Tablet PO ×2 (09:50→18:04)
[2023-07-02] MEDS: multivitamin therapeutic Tablet 2 TAB PO (09:50)
[2023-07-02] MEDS: amiodarone 200 mg Tablet 400 MG PO ×2 (09:50→18:04)
[2023-07-02] MEDS: cholecalciferol (vitamin D3) 5,000 unit Tablet 5000 UNIT PO (09:50)
[2023-07-02] MEDS: apixaban 5 mg Tablet 2.5 MG PO ×2 (09:50→21:31)
[2023-07-02] MEDS: folic acid 1 mg Tablet PO (09:51)
[2023-07-02] MEDS: midodrine 5 mg TABLET 10 MG PO ×3 (09:51→21:32)
[2023-07-02] MEDS: fludrocortisone 0.1 mg Tablet PO (09:51)
[2023-07-02] MEDS: metoprolol tartrate 25 mg Tablet 12.5 MG PO ×2 (09:51→21:31)
[2023-07-02] MEDS: gabapentin 300 mg Capsule PO ×2 (09:52→18:04)
[2023-07-02] MEDS: lidocaine 5% Patch 1 PATCH TOPICAL (09:53)
--- NOTE | 2023-07-02 13:05 | P.PN_ITS ---
Subjective 2 Subjective: No acute events overnight. Patient sitting up in chair today. Awake and alert. Denies any nausea, vomiting, headache. Has remained hemodynamically stable and afebrile. Asking when can she be discharged to SNF. Vitals/I&O/Wt Last Vital Signs Temp 97.6 F 07/02/23 11:11 Pulse 82 07/02/23 11:11 Resp 17 07/02/23 11:11 BP 118/82 07/02/23 11:11 Pulse Ox 90 07/02/23 11:11 O2 Del Method Room Air 07/02/23 11:11 O2 Flow Rate 1.5 07/01/23 00:00 07/01/23 07/02/23 07/02/23 22:59 06:59 14:59 Intake Total 290 / 1165 50 / 1215 530 / 530 Balance 290 / 1165 50 / 1215 530 / 530 Weight last 48 hrs Weight 73.981 kg Weight 71.35 kg Physical Exam 2 Const: COMMON NORMALS: patient oriented x3 and alert GENERAL APPEARANCE: c ooperative ORIENTATION/CONSCIOUSNESS: Yes awake HENMT: COMMON NORMALS: oropharynx normal Neck/C-Spine: COMMON NORMALS: no JVD Resp: COMMON NORMALS: normal respiratory effort and clear to auscultation bilaterally AUSCULTATION: clear to auscultation bilaterally Cardio: COMMON NORMALS: no JVD, regular rhythm, S1 normal heart sound present, S2 normal heart sound present and No murmurs present (Cardio) RHYTHM: regular rhythm HEART SOUNDS: S1 normal heart sound present and S2 normal heart sound present GI: COMMON NORMALS: Normal to inspection, nondistended, normoactive bowel sounds present, Soft to palpation and non-tender PALPATION: Yes Soft to palpation Extremity: COMMON NORMALS: no joint enlargement and no pedal edema Neuro: COMMON NORMALS: patient oriented x3 and moves all extremities S ENSORIUM/ORIENTATION: Yes alert Skin: COMMON NORMALS: no rashes or lesions noted GENERAL SKIN EXAM: no rashes or lesions noted OTHER: Scattered bruising Urinary Catheter Management: Hooper: Cath Placed During This Visit: yes Reason for Continuing Indwelling Catheter: Acute Urinary Retention or Obstruction Urinary Catheter Date of Insertion: 06/24/23 Urinary Catheter Time of Insertion: 01:26 Data 07/02/23 05:18 07/02/23 05:18 A&P Assessment and plan (1) Adrenal insufficiency: (2) Recurrent UTI: (3) Impaired mobility and ADLs: (4) Weakness: (5) Hypokalemia: (6) Lactic acidosis: (7) Type 2 diabetes mellitus with diabetic nephropathy: Qualifiers: Diabetes mellitus termite treater helper insulin use: unspecified correction insulin use status Qualified Code(s): E11.21 - Type 2 diabetes mellitus with diabetic nephropathy (8) Acquired hypothyroidism: (9) Severe protein-calorie malnutrition: (10) Nonsustained ventricular tachycardia: Plan 67-year-old lady with recent discharge from the hospital after presenting here for generalized weakness. Discharged on 06/14 after diagnosis of UTI, and COVID-19 infection. Returned home, however has continued to have multiple episodes of nausea and vomiting. Patient estimates the symptoms have been ongoing for about a month now. Her diarrhea appears to have resolved as of yesterday. CT of the abdomen and pelvis performed recently on 06/12/2024 was significant for cholelithiasis without signs of cholecystitis. Shock: Seems to be improving. No blood cultures taken during that time. Urine culture so far negative.?E. coli and Pseudomonas. Discontinue Levaquin As Patient Has Been on Levaquin since Admission. Continue Zosyn to Finish a 5-Day Course. Given History of Adrenal Crisis Continue with Hydrocortisone. Will Wean down to 25 Mg Every 8 Hourly. Continue with Oral Fludrocortisone. Continue with Midodrine Home Dose 10 Mg 3 Times Daily. Goal Mean Artery Pressure over 65 Less Than 140/90 mmHg. Will Titrate Medications Accordingly. SVT: Most Likely in Setting of Levophed While in the ICU. Monitor Electrolytes. Replete Potassium. Keep around 4. Check Magnesium Level. Replete 120 Mg of Oral Potassium. Continue with Oral Amiodarone 400 Mg Twice Daily. Will Plan for Taper As per Protocol. Nausea and vomiting: Resolving. Continue antiemetics. PPI. Nutritional supplementation due to Sebastian-en-Y. Stop scopolamine patch. Continue Zofran, Reglan as needed. Replace multiple electrolyte and nutrient deficiencies. Appreciate RD consultation, note reviewed. Boost jerson is added. Physical deconditioning. Would benefit from SNF rehabilitation. Discussed with manager case. Severe physical deconditioning At risk of multiple electrolyte abnormalities Incidentally noted collection in posterior aspect of inferior left rectus muscle. Findings suggest a resolving hematoma. Will need follow-up for resolution with a CT scan in 6 months. Full code Cardiac diet Protonix for PUD prophylaxis Lore wests DVT prophylaxis. Discharge plan: Plan to discharge to SNF. Patient has been accepted. Prior authorization awaited. Will discharge once prior authorization obtained. Plan for the day: Monitor blood cultures. Continue Zosyn for last day of IV antibiotics today. Continue with oral fludrocortisone and midodrine. Wean down hydrocortisone further to 25 mg every 12 hourly today. Keep mean artery pressure 65. Continue with oral amiodarone 400 mg twice daily. Plan to taper down to 200 mg twice daily after she is finished 1 week course. Electrolytes stable. Potassium improved to 4.5. Kidney function stable. Monitor daily for now. Hemoglobin stable at 8.3. Awaiting prior authorization for discharge to SNF. Attestations 2 Medical Necessity Statement*: Requires further hospitalization for management of shock in setting of adrenal crisis from UTI in a patient with severe physical deconditioning, adult failure to thrive by safe discharge planning to SNF is sought Diagnoses Adrenal insufficiency E27.40 Recurrent UTI N39.0 Impaired mobility and ADLs Z74.09; Z78.9 Weakness R53.1 Hypokalemia E87.6 Lactic acidosis E87.20 Type 2 diabetes mellitus with diabetic nephropathy, unspecified whether termite treater helper insulin use E11.21 Diabetes mellitus termite treater helper insulin use: unspecified termite treater helper insulin use status Acquired hypothyroidism E03.9 Severe protein-calorie malnutrition E43 Nonsustained ventricular tachycardia I47.29
[2023-07-02] MEDS: pantoprazole 40 mg SDV IVP (21:31)
[2023-07-03] VITALS (11 sets, daily range): BP systolic 112–125; BP diastolic 67–83; PULSE 78–89; RESP 16–20; TEMP 36.3–36.9; O2SAT 94–98
[2023-07-03 04:18] LABS: Basophils % 0.1 %; Eosinophils % 0.1 %; Hematocrit 26.8 % (36-47); Lymphocytes # 2.2 10^3/uL (0.8-4.8); Lymphocytes % 18.5 %; Mean Corpuscular HGB Conc 31.3 g/dL (30-55); Mean Corpuscular Hemoglobin 33.9 pg (27-33); Mean Corpuscular Volume 108.1 fl (85-98); Mean Platelet Volume 12.6 fL (7.4-10.4); Monocytes # 0.6 10^3/uL (0.2-0.9); Monocytes % 5.4 %; Neutrophils # 8.83 10^3/uL (1.8-7.7); Neutrophils % 74.2 %; Nucleated Red Blood Cells # 0.1 /100WBC; Nucleated Red Blood Cells % 0.5 %; Platelet Count 192 10^3/cmm (157-399); Red Blood Count 2.48 10^6/uL (3.85-5.65); Red Cell Distribution Width 20.4 % (12.1-15.1); White Blood Count 11.89 10^3/uL (3.29-11.43)
[2023-07-03 04:43] LABS: Alanine Aminotransferase 39 U/L (0-33); Albumin Level 3.1 g/dL (3.5-5.2); Alkaline Phosphatase 70 U/L (35-105); Anion Gap 13.4 (5-19); Aspartate Amino Transferase 52 U/L (0-32); Blood Urea Nitrogen 20 mg/dL (8-23); Calcium 9.1 mg/dL (8.5-10.5); Carbon Dioxide 25 mmol/L (22-29); Chloride 104 mmol/L (98-107); Glomerular Filtration Rate 49.5 mL/min (90-130); Glucose 93 mg/dL (65-115); Osmolality Calculated 288 mOsm/kg (285-295); Potassium 4.4 mmol/L (3.5-5.1); Sodium 138 mmol/L (136-145); Total Bilirubin 0.5 mg/dL (0.15-1.2); Total Protein 5.1 g/dL (6.6-8.7)
[2023-07-03] MEDS: clopidogrel 75 mg Tablet PO (05:21)
[2023-07-03] MEDS: levothyroxine 125 mcg Tablet PO (05:21)
[2023-07-03] MEDS: atorvastatin 40 mg Tablet PO (08:24)
[2023-07-03] MEDS: midodrine 5 mg TABLET 10 MG PO ×3 (08:24→20:36)
[2023-07-03] MEDS: folic acid 1 mg Tablet PO (08:24)
[2023-07-03] MEDS: cholecalciferol (vitamin D3) 1,000 unit Tablet 1000 UNIT PO (08:24)
[2023-07-03] MEDS: phosphorus 250 mg Tablet PO ×2 (08:24→17:05)
[2023-07-03] MEDS: zinc gluconate 50 mg Tablet 25 MG PO (08:24)
[2023-07-03] MEDS: metoprolol tartrate 25 mg Tablet 12.5 MG PO ×2 (08:25→20:36)
[2023-07-03] MEDS: gabapentin 300 mg Capsule PO ×2 (08:25→17:05)
[2023-07-03] MEDS: lidocaine 5% Patch 1 PATCH TOPICAL (08:25)
[2023-07-03] MEDS: calcium acetate 667 mg Capsule 1334 MG PO ×3 (08:25→17:05)
[2023-07-03] MEDS: apixaban 5 mg Tablet 2.5 MG PO ×2 (08:25→20:36)
[2023-07-03] MEDS: amiodarone 200 mg Tablet 400 MG PO ×2 (08:25→17:05)
[2023-07-03] MEDS: fludrocortisone 0.1 mg Tablet PO (08:25)
[2023-07-03] MEDS: multivitamin therapeutic Tablet 2 TAB PO (08:25)
[2023-07-03] MEDS: cholecalciferol (vitamin D3) 5,000 unit Tablet 5000 UNIT PO (08:25)
[2023-07-03] MEDS: hydrocortisone 100 mg/2 mL SDV 25 MG IVP (10:20)
--- NOTE | 2023-07-03 12:05 | PC.SOCIAL ---
IMM Updated updated pt on IMM. No questions voiced. Provided pt a copy. Initialed, dated, & timed copy in chart.
--- NOTE | 2023-07-03 13:06 | P.PN_ITS ---
Subjective 2 Subjective: No acute vents overnight. Patient denies any nausea, vomiting, headache. Feeling little tired today as did not have a restful night. Working with physical therapy. Has remained hemodynamically stable and afebrile. Vitals/I&O/Wt Last Vital Signs Temp 98.4 F 07/03/23 12:00 Pulse 82 07/03/23 12:00 Resp 16 07/03/23 12:00 BP 119/75 07/03/23 12:00 Pulse Ox 94 07/03/23 12:00 O2 Del Method Nasal Cannula 07/03/23 08:20 O2 Flow Rate 1 07/03/23 08:20 07/02/23 07/03/23 07/03/23 22:59 06:59 14:59 Intake Total 240 / 770 480 / 480 Balance 240 / 770 480 / 480 Weight last 48 hrs Weight 71.849 kg Weight 73.981 kg Physical Exam 2 Const: COMMON NORMALS: patient oriented x3 and alert GENERAL APPEARANCE: c ooperative ORIENTATION/CONSCIOUSNESS: Yes awake HENMT: COMMON NORMALS: oropharynx normal Neck/C-Spine: COMMON NORMALS: no JVD Resp: COMMON NORMALS: normal respiratory effort and clear to auscultation bilaterally AUSCULTATION: clear to auscultation bilaterally Cardio: COMMON NORMALS: no JVD, regular rhythm, S1 normal heart sound present, S2 normal heart sound present and No murmurs present (Cardio) RHYTHM: regular rhythm HEART SOUNDS: S1 normal heart sound present and S2 normal heart sound present GI: COMMON NORMALS: Normal to inspection, nondistended, normoactive bowel sounds present, Soft to palpation and non-tender PALPATION: Yes Soft to palpation Extremity: COMMON NORMALS: no joint enlargement and no pedal edema Neuro: COMMON NORMALS: patient oriented x3 and moves all extremities S ENSORIUM/ORIENTATION: Yes alert Skin: COMMON NORMALS: no rashes or lesions noted GENERAL SKIN EXAM: no rashes or lesions noted OTHER: Scattered bruising Urinary Catheter Management: Hooper: Cath Placed During This Visit: yes Reason for Continuing Indwelling Catheter: Acute Urinary Retention or Obstruction Urinary Catheter Date of Insertion: 06/24/23 Urinary Catheter Time of Insertion: 01:26 Data 07/03/23 03:46 07/03/23 03:46 A&P Assessment and plan (1) Adrenal insufficiency: (2) Recurrent UTI: (3) Impaired mobility and ADLs: (4) Weakness: (5) Hypokalemia: (6) Lactic acidosis: (7) Type 2 diabetes mellitus with diabetic nephropathy: Qualifiers: Diabetes mellitus intermediate card tender insulin use: unspecified intermediate card tender insulin use status Qualified Code(s): E11.21 - Type 2 diabetes mellitus with diabetic nephropathy (8) Acquired hypothyroidism: (9) Severe protein-calorie malnutrition: (10) Nonsustained ventricular tachycardia: Plan 67-year-old lady with recent discharge from the hospital after presenting here for generalized weakness. Discharged on 06/14 after diagnosis of UTI, and COVID-19 infection. Returned home, however has continued to have multiple episodes of nausea and vomiting. Patient estimates the symptoms have been ongoing for about a month now. Her diarrhea appears to have resolved as of yesterday. CT of the abdomen and pelvis performed recently on 06/12/2024 was significant for cholelithiasis without signs of cholecystitis. Shock: Seems to be improving. No blood cultures taken during that time. Urine culture so far negative. Discontinue Levaquin As Patient Has Been on Levaquin since Admission. Continue Zosyn to Finish a 5-Day Course. Given History of Adrenal Crisis Continue with Hydrocortisone. Will Wean down to 25 Mg Every 8 Hourly. Continue with Oral Fludrocortisone. Continue with Midodrine Home Dose 10 Mg 3 Times Daily. Goal Mean Artery Pressure over 65 Less Than 140/90 mmHg. Will Titrate Medications Accordingly. SVT: Most Likely in Setting of Levophed While in the ICU. Monitor Electrolytes. Replete Potassium. Keep around 4. Check Magnesium Level. Replete 120 Mg of Oral Potassium. Continue with Oral Amiodarone 400 Mg Twice Daily. Will Plan for Taper As per Protocol. Nausea and vomiting: Resolving. Continue antiemetics. PPI. Nutritional supplementation due to Sebastian-en-Y. Stop scopolamine patch. Continue Zofran, Reglan as needed. Replace multiple electrolyte and nutrient deficiencies. Appreciate RD consultation, note reviewed. Camryn arthur is added. Physical deconditioning. Would benefit from SNF rehabilitation. Discussed with embedded case manager. Severe physical deconditioning At risk of multiple electrolyte abnormalities Incidentally noted collection in posterior aspect of inferior left rectus muscle. Findings suggest a resolving hematoma. Will need follow-up for resolution with a CT scan in 6 months. Full code Cardiac diet Protonix for PUD prophylaxis Eliqujhon jennas DVT prophylaxis. Discharge plan: Plan to discharge to SNF. Patient has been accepted. Prior authorization awaited. Will discharge once prior authorization obtained. Plan for the day: Blood cultures so far negative. Finished IV antibiotic course on 07/02. Hemodynamically has remained stable. Wean down hydrocortisone to prednisone 20 mg oral daily. Continue with fludrocortisone and midodrine at home dose. Continue amiodarone 400 mg twice daily tell 07/06 after that 200 mg twice daily for 7 days and then 200 mg daily. Monitor renal functions daily. Prior authorization declined and requesting peer to peer conversation. peer 2peer Conversation also declined. Plan to discharge home tomorrow with caregiver and home health. Attestations 2 Medical Necessity Statement*: Requires further hospitalization for management of adrenal insufficiency leading to shock in a patient admitted for severe physical deconditioning while safe discharge planning is sought. Diagnoses Adrenal insufficiency E27.40 Recurrent UTI N39.0 Impaired mobility and ADLs Z74.09; Z78.9 Weakness R53.1 Hypokalemia E87.6 Lactic acidosis E87.20 Type 2 diabetes mellitus with diabetic nephropathy, unspecified whether intermediate card tender insulin use E11.21 Diabetes mellitus custodial insulin use: unspecified intermediate card tender insulin use status Acquired hypothyroidism E03.9 Severe protein-calorie malnutrition E43 Nonsustained ventricular tachycardia I47.29
[2023-07-03] MEDS: pantoprazole 40 mg SDV IVP (20:36)
[2023-07-04 04:00] VITALS: BP 119/75; PULSE 78; RESP 20; TEMP 36.4; O2SAT 97
[2023-07-04] MEDS: clopidogrel 75 mg Tablet PO (05:22)
[2023-07-04] MEDS: levothyroxine 125 mcg Tablet PO (05:22)
[2023-07-04 06:00] VITALS: PULSE 83
[2023-07-04 06:29] LABS: Basophils % 0.1 %; Eosinophils # 0.1 10^3/uL (0.0-0.8); Hematocrit 26.3 % (36-47); Lymphocytes # 3.3 10^3/uL (0.8-4.8); Lymphocytes % 31.5 %; Mean Corpuscular HGB Conc 31.6 g/dL (30-55); Mean Corpuscular Hemoglobin 34.3 pg (27-33); Mean Corpuscular Volume 108.7 fl (85-98); Mean Platelet Volume 11.9 fL (7.4-10.4); Monocytes # 0.8 10^3/uL (0.2-0.9); Monocytes % 7.1 %; Neutrophils # 6.31 10^3/uL (1.8-7.7); Neutrophils % 59.4 %; Nucleated Red Blood Cells % 0 %; Platelet Count 189 10^3/cmm (157-399); Red Blood Count 2.42 10^6/uL (3.85-5.65); Red Cell Distribution Width 21.2 % (12.1-15.1); White Blood Count 10.62 10^3/uL (3.29-11.43)
[2023-07-04 06:47] LABS: Alanine Aminotransferase 32 U/L (0-33); Albumin Level 2.9 g/dL (3.5-5.2); Alkaline Phosphatase 72 U/L (35-105); Anion Gap 10.6 (5-19); Aspartate Amino Transferase 42 U/L (0-32); Blood Urea Nitrogen 21 mg/dL (8-23); Calcium 8.3 mg/dL (8.5-10.5); Carbon Dioxide 28 mmol/L (22-29); Chloride 107 mmol/L (98-107); Glomerular Filtration Rate 62.5 mL/min (90-130); Glucose 76 mg/dL (65-115); Osmolality Calculated 296 mOsm/kg (285-295); Potassium 3.6 mmol/L (3.5-5.1); Sodium 142 mmol/L (136-145); Total Bilirubin 0.4 mg/dL (0.15-1.2); Total Protein 4.9 g/dL (6.6-8.7)
[2023-07-04 08:00] VITALS: BP 128/69; PULSE 85; RESP 18; TEMP 36.6; O2SAT 97
[2023-07-04 09:17] VITALS: PULSE 86; RESP 16; O2SAT 99
[2023-07-04] MEDS: multivitamin therapeutic Tablet 2 TAB PO (09:46)
[2023-07-04] MEDS: apixaban 5 mg Tablet 2.5 MG PO (09:46)
[2023-07-04] MEDS: midodrine 5 mg TABLET 10 MG PO (09:46)
[2023-07-04] MEDS: calcium acetate 667 mg Capsule 1334 MG PO ×2 (09:46→12:58)
[2023-07-04] MEDS: amiodarone 200 mg Tablet 400 MG PO (09:46)
[2023-07-04] MEDS: phosphorus 250 mg Tablet PO (09:46)
[2023-07-04] MEDS: metoprolol tartrate 25 mg Tablet 12.5 MG PO (09:47)
[2023-07-04] MEDS: gabapentin 300 mg Capsule PO (09:47)
[2023-07-04] MEDS: predniSONE 20 mg Tablet PO (09:47)
[2023-07-04] MEDS: cholecalciferol (vitamin D3) 1,000 unit Tablet 1000 UNIT PO (09:47)
[2023-07-04] MEDS: atorvastatin 40 mg Tablet PO (09:47)
[2023-07-04] MEDS: zinc gluconate 50 mg Tablet 25 MG PO (09:47)
[2023-07-04] MEDS: cholecalciferol (vitamin D3) 5,000 unit Tablet 5000 UNIT PO (09:47)
[2023-07-04] MEDS: fludrocortisone 0.1 mg Tablet PO (09:47)
[2023-07-04] MEDS: folic acid 1 mg Tablet PO (09:47)
[2023-07-04] MEDS: lidocaine 5% Patch 1 PATCH TOPICAL (09:48)
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
[2023-07-04 12:00] VITALS: BP 136/73; PULSE 75; RESP 18; TEMP 36.5; O2SAT 93
[2023-07-04] MEDS: TRAMadol 50 mg Tablet PO (13:00)
[2023-07-04 14:13] VITALS: BP 136/73; PULSE 75; RESP 18; TEMP 36.5; O2SAT 93
== END 2023-07-04 14:14 | disposition home or self-care (01) | DRG 643 ==
LOC: ER 19:31 → MEDSURG 20:08 → ICU 06-27 06:57 → MEDSURG 06-29 21:33
PROVIDERS: Family Medicine; Internal Medicine; Student in an Organized Health Care Education/Training Program; Admitting Provider Student in an Organized Health Care Education/Training Program; Emergency Provider Emergency Medicine; PCP Family Medicine; Visit Provider Student in an Organized Health Care Education/Training Program
DX: E27.2 Addisonian crisis (principal); E43 Unspecified severe protein-calorie malnutrition; R57.8 Other shock; N39.0 Urinary tract infection, site not specified; E87.20 Acidosis, unspecified; I47.10 Supraventricular tachycardia, unspecified; I13.0 Hypertensive heart and chronic kidney disease with heart failure and stage 1 through stage 4 chronic kidney disease, or unspecified chronic kidney disease; E27.40 Unspecified adrenocortical insufficiency; I48.91 Unspecified atrial fibrillation; Z79.01 Long term (current) use of anticoagulants; E83.39 Other disorders of phosphorus metabolism; Z86.16 Personal history of COVID-19; E83.42 Hypomagnesemia; E87.6 Hypokalemia; E86.0 Dehydration; R62.7 Adult failure to thrive; Z68.27 Body mass index [BMI] 27.0-27.9, adult; E03.9 Hypothyroidism, unspecified; I49.3 Ventricular premature depolarization; Z66 Do not resuscitate; F17.210 Nicotine dependence, cigarettes, uncomplicated; K21.9 Gastro-esophageal reflux disease without esophagitis; Z89.421 Acquired absence of other right toe(s); I25.2 Old myocardial infarction; Z98.84 Bariatric surgery status; J44.9 Chronic obstructive pulmonary disease, unspecified; G47.33 Obstructive sleep apnea (adult) (pediatric); E78.5 Hyperlipidemia, unspecified; I25.10 Atherosclerotic heart disease of native coronary artery without angina pectoris; Z95.5 Presence of coronary angioplasty implant and graft; E11.42 Type 2 diabetes mellitus with diabetic polyneuropathy; E11.22 Type 2 diabetes mellitus with diabetic chronic kidney disease; N18.9 Chronic kidney disease, unspecified; I50.9 Heart failure, unspecified
CPT/HCPCS: 36415; 36573; 36592; 51702; 71045; 71275; 74177; 80048; 80053; 80061; 81001; 82306; 82525; 82533; 82550; 82746; 83036; 83540; 83550; 83605; 83690; 83735; 84100; 84132; 84145; 84439; 84443; 84481; 84484; 84597; 84630; 85025; 85610; 87086; 87426; 87493; 93005; 93306; 94664; 96365; 96367; 96375; 96376; 97110; 97161; 97530; 99285; A4222; C1751; C9113; J0283; J0696; J1720; J1956; J2270; J2405; J2543; J3430; J3475; J3480; J7030; J7050; J7512; P9046; Q3014; Q9967

== ENCOUNTER → 2023-07-09 09:23 | Outpatient (BNVA) | payer MEDICARE, MEDICAID, SELFPAY | PROVIDERS: PCP Family Medicine; Visit Provider Podiatrist Foot & Ankle Surgery | DX: E11.21 Type 2 diabetes mellitus with diabetic nephropathy; L97.511 Non-pressure chronic ulcer of other part of right foot limited to breakdown of skin; E11.621 Type 2 diabetes mellitus with foot ulcer; Z89.421 Acquired absence of other right toe(s) | CPT/HCPCS: 99213 ==

== ENCOUNTER → 2023-08-07 15:55 | Outpatient (BNVA) | payer MEDICARE, MEDICAID, SELFPAY | PROVIDERS: PCP Family Medicine; Visit Provider Podiatrist Foot & Ankle Surgery | DX: E11.21 Type 2 diabetes mellitus with diabetic nephropathy; Z89.421 Acquired absence of other right toe(s) | CPT/HCPCS: 99213 ==

== ENCOUNTER 2023-08-25 16:39 | Inpatient (IN) | payer MEDICARE, MEDICAID, SELFPAY ==
[2023-08-25] VITALS (23 sets, daily range): BP systolic 81–116; BP diastolic 55–76; PULSE 72–108; RESP 6–23; TEMP 36.4–36.6; O2SAT 90–100; BMI 25.7
--- NOTE | 2023-08-25 16:50 | XRR_ITS ---
PROCEDURE INFORMATION: Exam: XR Chest Exam date and time: 08/25/2023 6:35 PM Age: 67 years old Clinical indication: Other: Weak; Additional info: Weakness TECHNIQUE: Imaging protocol: Radiologic exam of the chest. Views: 1 view. COMPARISON: CR XR chest 1V portable [id number] 06/30/2023 12:40 PM FINDINGS: Lungs: Unremarkable. No consolidation. Pleural spaces: Unremarkable. No pleural effusion. No pneumothorax. Heart/Mediastinum: Mitral annular calcifications. Heart size normal. Bones/joints: No acute findings. XR/XR chest 1V portable [id number] IMPRESSION: No acute findings.
--- NOTE | 2023-08-25 16:50 | ECG_ITS ---
[facility] Test Date: 2023-08-25 Pat Name: Peri Cid Department: Room: Gender: Female [employer]: : 1955 Requested By: Ellen Fong Order Number: [id number] Arturo MD: Gaston Yuan M.D. Measurements Intervals [place] Rate: 78 P: 71 MD: 159 QRS: -54 QRSD: 102 T: 0 QT: 206 QTc: 235 Interpretive Statements SINUS RHYTHM LOW QRS VOLTAGE IN EXTREMITY LEADS [QRS DEFLECTION < 0.5 mV IN LIMB LEADS] LEFT ANTERIOR FASCICULAR BLOCK [QRS AXIS <= -45, QR IN I, RS IN II] INFERIOR MYOCARDIAL INFARCTION , PROBABLY OLD [40+ ms Q WAVE AND/OR ST/T ABNORMALITY IN II/aVF] ANTEROLATERAL MYOCARDIAL INFARCTION , PROBABLY OLD [40+ ms Q WAVE IN I/aVL/V3-V6] Compared to ECG 07/01/2023 12:25:20 Low QRS voltage now present Left anterior fascicular block now present Myocardial infarct finding still present Electronically Signed On 08-26-2023 8:47:46 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 [email or web address]
--- NOTE | 2023-08-25 16:54 | CTR_ITS ---
PROCEDURE INFORMATION: Exam: CT Abdomen And Pelvis With Contrast Exam date and time: 08/25/2023 6:29 PM Age: 67 years old Clinical indication: Vomiting TECHNIQUE: Imaging protocol: Computed tomography of the abdomen and pelvis with contrast. Radiation optimization: All CT scans at this facility use at least one of these dose optimization techniques: automated exposure control; mA and/or kV adjustment per patient size (includes targeted exams where dose is matched to clinical indication); or iterative reconstruction. Contrast material: OMNI 350; Contrast volume: 100 ml; Contrast route: INTRAVENOUS (IV); COMPARISON: CT angio chest w abd pel w con 06/27/2023 3:12 PM RADIATION DOSE METRICS: Total DLP (mGy-cm): 595.37 FINDINGS: Heart: Mitral annular calcifications. Coronary arteries: Coronary calcifications are noted. Liver: Diffuse hepatic steatosis. Gallbladder and bile ducts: Unchanged 5.5 cm gallstone in gallbladder. No evident wall thickening. Pancreas: Normal. No ductal dilation. Spleen: Normal. No splenomegaly. Adrenal glands: Normal. No mass. Kidneys and ureters: Left renal calculus unchanged. Stomach and bowel: Low-density wall thickening through much of the colon and low-density wall thickening also suggested in ileum. Gastric bypass surgical changes are noted. Colonic diverticula noted. Appendix: No evidence of appendicitis. Intraperitoneal space: Mild increase in ascites which remains small. Vasculature: Atheromatous changes are noted and there is mild dilation of distal aorta to 2.1 cm. Lymph nodes: Unremarkable. No enlarged lymph nodes. Urinary bladder: Unremarkable as visualized. Reproductive: Unremarkable as visualized. Bones/joints: No acute fracture. Soft tissues: Focal thickening seen along the inner margin of lower left rectus sheath has decreased in size and is suggestive of resolving hematoma. CT/CT abdomen pelvis w con* [id number] IMPRESSION: New low-density wall thickening seen through much of the colon as well as portions of small bowel raising consideration of enterocolopathy of portal hypertension, enterocolitis (either infectious/inflammatory or ischemic) , or angioedema. Mild increase in ascites which remains small. Large gallstone again noted within gallbladder. Fatty liver.
--- NOTE | 2023-08-25 16:54 | W.ED.NAVMDI ---
HPI - Nausea/Vomiting/Diarrhea General: Chief complaint: Nausea/Vomiting/Diarrhea Stated complaint: weak Time Seen by Provider: 08/25/23 16:51 Source: patient Mode of arrival: ambulatory Limitations: no limitations History of Present Illness: 67-year-old female has multiple medical issues she states she is not felt well over the last 7 days states been having nausea vomiting has not been able to keep anything down and states she been feeling very weak and dizzy from feeling like she is dehydrated she denies any fevers denies any pain anywhere. PFSH ED PFSH: Medical History Neck injury Head injury due to trauma Fall with injury Hypotension Secondary hyperparathyroidism of renal origin Nonscarring hair loss Pain associated with defecation Family history of colon cancer requiring screening colonoscopy Diabetic neuropathy GERD (gastroesophageal reflux disease) Chronic rhinosinusitis Insomnia Diabetic peripheral neuropathy associated with type 2 diabetes mellitus Chronic kidney disease Cystitis cystica Coronary artery disease S/P extracorporeal shock wave therapy Renal calculus, left treated with ESWL with resolution Urolithiasis Recurrent UTI Tobacco abuse CHF (congestive heart failure) ASHD (arteriosclerotic heart disease) Diabetes 1.5, managed as type 2 CKD (chronic kidney disease) Hyperlipidemia EDNA (obstructive sleep apnea) HTN (hypertension) Obesity COPD (chronic obstructive pulmonary disease) Myocardial infarction Surgical History H/O bariatric surgery S/P angioplasty with stent Family History Mother , at age 86 CAD (coronary artery disease) Diabetes Myocardial infarction Hypertension Father , AGE 72 Diabetes CAD (coronary artery disease) Cancer LUNG Brother Diabetes CAD (coronary artery disease) Hypertension Sister Diabetes Social History Smoking and tobacco/nicotine status: current every day tobacco/nicotine user cigarettes Alcohol intake: never Adopted: No Caregiver/support person: No Marital status: Legally Current occupational status: retired and disabled Current gender identity: Female Female Reproductive History: Spontaneous abortions: No Physical Exam Const: COMMON NORMALS: patient oriented x3 GENERAL APPEARANCE: ill appearing HENMT: COMMON NORMALS: normocephalic and atraumatic HEAD & SCALP: normocephalic and atraumatic Eye: COMMON NORMALS: Equal, round and reactive pupils present and EOMs intact bilaterally PUPIL: Yes Equal, round and reactive pupils present Neck/C-Spine: COMMON NORMALS: full ROM and supple Chest: COMMONS NORMALS: normal inspection of the chest and normal palpation of entire chest wall Resp: COMMON NORMALS: normal respiratory effort, No retractions, No use of accessory muscles and clear to auscultation bilaterally AUSCULTATION: clear to auscultation bilaterally Cardio: COMMON NORMALS: regular rate, regular rhythm and No murmurs present (Cardio) RATE: regular rate RHYTHM: regular rhythm GI: COMMON NORMALS: Normal to inspection, nondistended, normoactive bowel sounds present, Soft to palpation, non-tender and no masses PALPATION: Yes Soft to palpation Extremity: COMMON NORMALS: normal to inspection and full ROM Neuro: COMMON NORMALS: patient oriented x3, moves all extremities and no focal motor deficits Psych: COMMON NORMALS: mental status grossly normal, Normal thought process present and cooperative THOUGHT PROCESS: Normal thought process present Skin: COMMON NORMALS: no rashes or lesions noted and no wounds GENERAL SKIN EXAM: no rashes or lesions noted Course Vital Signs: Vital signs: Vital Signs Temperature 97.5 F L 08/25/23 16:43 Pulse Rate 86 08/25/23 19:30 Respiratory Rate 18 08/25/23 19:30 Blood Pressure 95/68 08/25/23 19:25 Pulse Oximetry 90 08/25/23 19:30 Oxygen Delivery Me thod Room Air 08/25/23 17:54 Oxygen Flow Rate 2 08/25/23 17:54 MDM - Nausea/Vomiting/Diarrhea Medical Decision Making Patient presents here with vomiting she feels much improved after fluids and Zofran her blood pressure is improved as well mildly elevated lactate CT shows a colitis will start Cipro Flagyl she got 2 L bolus here did not give her more fluids because she has CHF and her BNP was elevated did not want to put her into CHF exacerbation will admit to the hospitalist Medical Records I reviewed the patient's medical records. Lab Data I reviewed the patient's lab results. 08/25/23 17:15 08/25/23 17:15 Radiology Impressions Chest X-Ray 08/25/23 16:50 IMPRESSION: No acute findings. Abdomen/Pelvis CT 08/25/23 16:54 IMPRESSION: New low-density wall thickening seen through much of the colon as well as portions of small bowel raising consideration of enterocolopathy of portal hypertension, enterocolitis (either infectious/inflammatory or ischemic) , or angioedema. Mild increase in ascites which remains small. Large gallstone again noted within gallbladder. Fatty liver. Laboratory Results WBC 12.99 10^3/uL (3.29-11.43) H 08/25/23 17:15 RBC 4.36 10^6/uL (3.85-5.65) 08/25/23 17:15 Hgb 13.90 g/dL (11.27-16.99) 08/25/23 17:15 Hct 43.5 % (36-47) 08/25/23 17:15 MCV 99.8 fl (85-98) H 08/25/23 17:15 MCH 31.9 pg (27-33) 08/25/23 17:15 MCHC 32.0 g/dL (30-55) 08/25/23 17:15 RDW 16.1 % (12.1-15.1) H 08/25/23 17:15 Plt Count 249 10^3/cmm (157-399) 08/25/23 17:15 MPV 12.6 fL (7.4-10.4) H 08/25/23 17:15 Neut % (Auto) 60.1 % 08/25/23 17:15 Lymph % (Auto) 32.3 % 08/25/23 17:15 [place] % (Auto) 6.6 % 08/25/23 17:15 Eos % (Auto) 0.2 % 08/25/23 17:15 Baso % (Auto) 0.4 % 08/25/23 17:15 Neut # (Auto) 7.81 10^3/uL (1.8-7.7) H 08/25/23 17:15 Lymph # (Auto) 4.2 10^3/uL (0.8-4.8) 08/25/23 17:15 [place] # (Auto) 0.9 10^3/uL (0.2-0.9) 08/25/23 17:15 Eos # (Auto) 0.0 10^3/uL (0.0-0.8) 08/25/23 17:15 Baso # (Auto) 0.1 10^3/uL (0.0-0.1) 08/25/23 17:15 Nucleated RBC % (auto) 0 % 08/25/23 17:15 Nucleated RBCs # 0.0 /100WBC 08/25/23 17:15 PT 16.10 SECONDS (12.1-14.9) H 08/25/23 17:15 INR 1.24 (0.8-1.2) H 08/25/23 17:15 Sodium 132 mmol/L (136-145) L 08/25/23 17:15 Potassium 3.3 mmol/L (3.5-5.1) L 08/25/23 17:15 Chloride 99 mmol/L (98-107) 08/25/23 17:15 Carbon Dioxide 21 mmol/L (22-29) L 08/25/23 17:15 Anion Gap 15.3 (5-19) 08/25/23 17:15 BUN 9 mg/dL (8-23) 08/25/23 17:15 Creatinine 1.1 mg/dL (0.5-0.9) H 08/25/23 17:15 GFR Calculation 49.5 mL/min (90-130) L 08/25/23 17:15 Glucose 101 mg/dL (65-115) 08/25/23 17:15 Calculated Osmolality 273 mOsm/kg (285-295) L 08/25/23 17:15 Lactic Acid 2.5 mmol/L (0.5-2.2) H 08/25/23 17:15 Calcium 7.6 mg/dL (8.5-10.5) L 08/25/23 17:15 Magnesium 1.5 mg/dL (1.7-2.3) L 08/25/23 17:15 Total Bilirubin 1.4 mg/dL (0.15-1.2) H 08/25/23 17:15 AST 34 U/L (0-32) H 08/25/23 17:15 ALT 30 U/L (0-33) 08/25/23 17:15 Alkaline Phosphatase 154 U/L (35-105) H 08/25/23 17:15 NT-Pro-B Natriuret Pep 6609 pg/mL (0-125) H 08/25/23 17:15 Total Protein 5.4 g/dL (6.6-8.7) L 08/25/23 17:15 Albumin 2.5 g/dL (3.5-5.2) L 08/25/23 17:15 Globulin 2.9 g/dL (1.3-4.6) 08/25/23 17:15 Lipase 4 U/L (13-60) L 08/25/23 17:15 TSH 15.91 uIU/mL (0.27-4.20) H 08/25/23 17:15 Urine Color Dark yellow (Yellow) 08/25/23 17:40 Urine Appearance Clear (CLEAR) 08/25/23 17:40 Urine pH 5 (5-7) 08/25/23 17:40 Ur Specific [place] 1.020 (1.005-1.030) 08/25/23 17:40 Urine Protein Trace (Negative) 08/25/23 17:40 Urine Glucose (UA) Norm (Normal) 08/25/23 17:40 Urine Ketones 1+ (Negative) H 08/25/23 17:40 Urine Blood Neg (Negative) 08/25/23 17:40 Urine Nitrate Negative (Negative) 08/25/23 17:40 Urine Bilirubin 2+ (Negative) H 08/25/23 17:40 Urine Urobilinogen 4+ mg/dL (Negative) H 08/25/23 17:40 Ur Leukocyte Esterase Negative (Negative) 08/25/23 17:40 Urine RBC None /hpf (0-2) 08/25/23 17:40 Urine WBC 0-4 /hpf (0-5) H 08/25/23 17:40 Ur Squamous Epith Cells None /hpf (0-5) 08/25/23 17:40 Amorphous Sediment Not Reportable 08/25/23 17:40 Urine Bacteria Trace /hpf (NONE) 08/25/23 17:40 All radiology interpretation(s) finalized by discharge EKG Data EKG 1: I personally reviewed and interpreted this EKG as follows: EKG interpretation date: 08/25/23 EKG interpretation time: 17:27 Interpretation: nsr hr [address] elevation qrs 102 qtc 240 Discharge Plan Discharge Patient Disposition: Admitted As Inpatient Admit Provider: Max Thomas Clinical Impression: Hypotension, Hypomagnesemia, Colitis Condition: Stable Coding Level of Care Code ED 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
[2023-08-25] MEDS: sodium chloride 0.9% 1,000 ML 999 ML IV ×2 (17:13→18:01)
[2023-08-25] MEDS: ondansetron 2 mg/ML SDV 2 mL 4 MG IVP (17:14)
[2023-08-25 17:37] LABS: Basophils # 0.1 10^3/uL (0.0-0.1); Basophils % 0.4 %; Eosinophils % 0.2 %; Hematocrit 43.5 % (36-47); Lymphocytes # 4.2 10^3/uL (0.8-4.8); Lymphocytes % 32.3 %; Mean Corpuscular Hemoglobin 31.9 pg (27-33); Mean Corpuscular Volume 99.8 fl (85-98); Mean Platelet Volume 12.6 fL (7.4-10.4); Monocytes # 0.9 10^3/uL (0.2-0.9); Monocytes % 6.6 %; Neutrophils # 7.81 10^3/uL (1.8-7.7); Neutrophils % 60.1 %; Nucleated Red Blood Cells % 0 %; Platelet Count 249 10^3/cmm (157-399); Red Blood Count 4.36 10^6/uL (3.85-5.65); Red Cell Distribution Width 16.1 % (12.1-15.1); White Blood Count 12.99 10^3/uL (3.29-11.43)
[2023-08-25 17:50] LABS: INR 1.24 (0.8-1.2)
[2023-08-25 17:55] LABS: Lactic Sepsis W/Reflex 2.5 mmol/L (0.5-2.2)
[2023-08-25 18:07] LABS: Alanine Aminotransferase 30 U/L (0-33); Albumin Level 2.5 g/dL (3.5-5.2); Alkaline Phosphatase 154 U/L (35-105); Anion Gap 15.3 (5-19); Aspartate Amino Transferase 34 U/L (0-32); Blood Urea Nitrogen 9 mg/dL (8-23); Calcium 7.6 mg/dL (8.5-10.5); Carbon Dioxide 21 mmol/L (22-29); Chloride 99 mmol/L (98-107); Globulin 2.9 g/dL (1.3-4.6); Glomerular Filtration Rate 49.5 mL/min (90-130); Glucose 101 mg/dL (65-115); Lipase 4 U/L (13-60); Magnesium 1.5 mg/dL (1.7-2.3); NT Pro B Type Natriuretic Pept 6609 pg/mL (0-125); Osmolality Calculated 273 mOsm/kg (285-295); Potassium 3.3 mmol/L (3.5-5.1); Sodium 132 mmol/L (136-145); Thyroid Stimulating Hormone 15.91 uIU/mL (0.27-4.20); Total Bilirubin 1.4 mg/dL (0.15-1.2); Total Protein 5.4 g/dL (6.6-8.7)
[2023-08-25 18:09] LABS: Creatinine Clr Calc Pharmacy 47.0355
[2023-08-25 18:17] LABS: Add Urine Microscopic? YES; Bilirubin Urine 2+ (Negative); Blood Urine Neg (Negative); Glucose Urine UA Norm (Normal); Ketones Urine 1+ (Negative); Leukocyte Esterase Urine Negative (Negative); Nitrate Urine Negative (Negative); Protein Urine Trace (Negative); Urine Appearance Clear (CLEAR); Urine Color Dark Yellow (Yellow); Urobilinogen Urine 4+ mg/dL (Negative); pH Urine 5 (5-7)
[2023-08-25 18:18] LABS: Bacteria Urine TRACE /hpf; WBC Urine 0-4 /hpf (0-5)
[2023-08-25 18:19] LABS: Add Urine Culture? No
[2023-08-25] MEDS: iohexol 350 mg/mL 500 mL Btl (per mL) IV (18:33)
[2023-08-25] MEDS: magnesium sulfate premix 1 GM/100 ML PIGGYBACK IV (19:18)
[2023-08-25 19:22] LABS: Reflex Lactate Order REFLEX LACTIC ORDERD
[2023-08-25 20:07] LABS: Lactic Acid level (Lactate) 1.7 mmol/L (0.5-2.2)
--- NOTE | 2023-08-25 20:21 | P.HP_ITS ---
Providers/Chief Complaint 2 Admitting Physician: Max Thomas Primary Care Provider: Doug Allen DO Chief Complaint: weak History of Present Illness Pleasant 67-year-old lady came into ER for evaluation due to having profuse diarrhea for close about a week with intermittent vomiting, now only vomiting, has not been able to tolerate food and drink or medications by mouth. Has had no appetite. Feeling weak. In ER blood pressure soft as low as 83/54. Afebrile. WBC 12.99. Sodium 132, potassium 3.3, magnesium 1.5. Creatinine 1.1. T. bili 1.4, AST 34, alk phos 154. NT-proBNP 6609. Lipase 4. TSH 15.91. CT abdomen pelvis with low-density new wall thickening seen throughout much of the colon, portions of contrast and raising concern of encephalopathy, portal hypertension, and colitis (infectious/inflammatory or ischemic) or angioedema. Review of Systems 2 Const: Denies: fever(s), chills, body aches or malaise ENMT: Denies: throat pain Card: Denies: chest pain, edema, pre-syncope or dyspnea on exertion Resp: Denies: dyspnea, productive cough, change in phlegm color or hemoptysis GI: Denies: abdominal pain, nausea, vomiting, diarrhea, constipation, hematochezia or melena : Denies: flank pain, urinary frequency or hematuria Musc: Denies: back pain, joint swelling or joint redness Skin/Breast: Reports: other (Decubital ulcers); Denies: rash or new lesions Neuro: Denies: headache(s) or dizziness Medications/Allergies Home Medications Medication Instructions Recorded Confirmed Last Taken Type albuterol sulfate 90 mcg/actuation 2 puff inhalation Q6H PRN 11/29/20 08/07/23 Unknown History aerosol inhaler Shortness Of Breath calcitriol 0.25 mcg capsule 0.25 mcg PO .ON MON,WED,Sat10/15/22 08/07/23 06/10/23 History lidocaine-prilocaine 2.5 %-2.5 % See Rx Instructions .Route .COMPLEX 01/26/23 08/07/23 05/30/23 History topical cream nitroglycerin 0.4 mg sublingual 0.4 mg sublingual Q5M PRN Chest 01/26/23 08/07/23 Unknown History tablet (Nitrostat) Pain omega-3 acid ethyl esters 1 gram 3 cap PO DAILY 01/26/23 08/07/23 06/10/23 History capsule ascorbic acid (vitamin C) 500 mg 500 mg PO QAM #90 tabs 03/26/23 08/07/23 06/10/23 Rx tablet (Vitamin C) methenamine hippurate 1 gram tablet 1 g PO QAM #90 tabs 03/26/23 08/07/23 06/10/23 Rx fluticasone propionate 50 2 spray intranasal DAILY PRN 04/25/23 08/07/23 05/30/23 History mcg/actuation nasal Allergy Symptoms spray,suspension midodrine 10 mg tablet 10 mg PO TID 05/30/23 08/07/23 06/10/23 History lansoprazole 30 mg capsule,delayed 30 mg PO DAILY 06/11/23 08/07/23 06/10/23 History release apixaban 5 mg tablet (Eliquis) 2.5 mg (1/2 x 5 mg) PO 06/14/23 08/07/23 Unknown Rx BID@0900,2100 #30 tabs folic acid 1 mg tablet 1 mg PO DAILY #30 tabs 06/14/23 08/07/23 Unknown Rx gabapentin 300 mg capsule 300 mg PO BID #60 caps 06/14/23 08/07/23 Unknown Rx levothyroxine 125 mcg tablet 125 mcg PO QAM #30 tabs 06/14/23 08/07/23 Unknown Rx fludrocortisone 0.1 mg tablet 0.1 mg PO DAILY #30 tabs 06/19/23 08/07/23 Unknown Rx rosuvastatin 10 mg tablet 10 mg PO BEDTIME 06/24/23 08/07/23 Unknown History tizanidine 4 mg tablet 4 mg PO Q6H PRN Muscle Spasm 06/24/23 08/07/23 Unknown History amiodarone 200 mg tablet 200 mg PO DAILY #60 tabs 07/04/23 08/07/23 Unknown Rx calcium acetate 667 mg tablet 1,334 mg (2 x 667 mg) PO TIDWM 07/04/23 08/07/23 Unknown Rx (Calphron) #180 tabs prednisone 20 mg tablet See Taper PO DAILY #30 tabs 07/04/23 08/07/23 Unknown Rx sodium di- and 1 tab PO BID #60 tabs 07/04/23 08/07/23 Unknown Rx monophosphate-potassium phos monobasic 250 mg tablet (Phospha Neutral) zinc gluconate 50 mg tablet 25 mg (1/2 x 50 mg) PO DAILY #30 07/04/23 08/07/23 Unknown Rx tabs tramadol 50 mg tablet 50 mg PO BID PRN Pain #60 tabs 07/09/23 08/07/23 Unknown Rx clopidogrel 75 mg tablet See Rx Instructions .Route 07/18/23 08/07/23 Unknown Rx .COMPLEX #90 tabs Allergies Allergy/AdvReac Type Severity Reaction Status Date / Time hepatitis B immune globulin Allergy Unknown Unknown Verified 08/25/23 16:43 PFSH Acute 2 PFSH: Medical History Neck injury Head injury due to trauma Fall with injury Hypotension Secondary hyperparathyroidism of renal origin Nonscarring hair loss Pain associated with defecation Family history of colon cancer requiring screening colonoscopy Diabetic neuropathy GERD (gastroesophageal reflux disease) Chronic rhinosinusitis Insomnia Diabetic peripheral neuropathy associated with type 2 diabetes mellitus Chronic kidney disease Cystitis cystica Coronary artery disease S/P extracorporeal shock wave therapy Renal calculus, left treated with ESWL with resolution Urolithiasis Recurrent UTI Tobacco abuse CHF (congestive heart failure) ASHD (arteriosclerotic heart disease) Diabetes 1.5, managed as type 2 CKD (chronic kidney disease) Hyperlipidemia EDNA (obstructive sleep apnea) HTN (hypertension) Obesity COPD (chronic obstructive pulmonary disease) Myocardial infarction Surgical History H/O bariatric surgery S/P angioplasty with stent Family History Mother , at age 86 CAD (coronary artery disease) Diabetes Myocardial infarction Hypertension Father , AGE 72 Diabetes CAD (coronary artery disease) Cancer LUNG Brother Diabetes CAD (coronary artery disease) Hypertension Sister Diabetes Social History Smoking and tobacco/nicotine status: current every day tobacco/nicotine user cigarettes Alcohol intake: never Adopted: No Caregiver/support person: No Marital status: Legally Current occupational status: retired and disabled Current gender identity: Female Female Reproductive History: Spontaneous abortions: No Vitals/I&O/Wt Last Vital Signs Temp 97.5 F L 08/25/23 16:43 Pulse 84 08/25/23 20:00 Resp 6 L 08/25/23 20:00 BP 86/57 08/25/23 20:00 Pulse Ox 97 08/25/23 20:00 O2 Del Method Room Air 08/25/23 17:54 O2 Flow Rate 2 08/25/23 17:54 08/25/23 08/25/23 08/25/23 06:59 14:59 22:59 Intake Total 782.55 / 782.55 Balance 782.55 / 782.55 Weight last 48 hrs Weight 68.039 kg Physical Exam 2 Narrative: Accompanied by her daughter. Const: COMMON NORMALS: patient oriented x3 and alert GENERAL APPEARANCE: c ooperative ORIENTATION/CONSCIOUSNESS: Yes awake OTHER: Mildly hard of hearing as pointed out by her daughter. HENMT: COMMON NORMALS: oropharynx normal Neck/C-Spine: COMMON NORMALS: no JVD Resp: COMMON NORMALS: normal respiratory effort and clear to auscultation bilaterally AUSCULTATION: clear to auscultation bilaterally Cardio: COMMON NORMALS: no JVD, regular rhythm, S1 normal heart sound present, S2 normal heart sound present and No murmurs present (Cardio) RHYTHM: regular rhythm HEART SOUNDS: S1 normal heart sound present and S2 normal heart sound present GI: COMMON NORMALS: Normal to inspection, nondistended, normoactive bowel sounds present PALPATION: Yes Soft to palpation OTHER: Min diffuse tenderness. Soft. Extremity: COMMON NORMALS: no joint enlargement and no pedal edema Neuro: COMMON NORMALS: patient oriented x3 and moves all extremities S ENSORIUM/ORIENTATION: Yes alert Skin: OTHER: No obvious rashes on LE. Pressure ulcers not visualized. Data 08/25/23 17:15 08/25/23 17:15 Micro: Microbiology 08/25/23 18:50 Blood Culture - Preliminary Blood SPECIMEN COLLECTED 08/25/23 17:33 Blood Culture - Preliminary Blood SPECIMEN COLLECTED A&P Assessment and plan (1) Hypotension: Multifactorial hypotension, mean arterial pressure as low as 64 currently 67 despite 1 L fluid resuscitation. Hypovolemic shock and adrenal crisis. Reviewed vitals, CBC, INR, CMP, lactic acid, magnesium, NT-proBNP, lipase, TSH, UA, EKG, chest x-ray, CT abdomen pelvis, ER note, discussed with ER provider. Hypotension in the setting of encephalopathy possible enterocolitis, has had profuse nonbloody diarrhea, vomiting, currently only vomiting. Additionally with history of adrenal insufficiency with adrenal crisis. Has not been able to take her medications either. Continue IV rehydration, boluses as needed to maintain mean arterial pressure above 65 mmHg. Will give stress dose steroids, hydrocortisone 100 mg every 6 hours. With steroids monitor for risk of hyperglycemia specially diabetes, other complication including gastritis. PPI prophylaxis. Additionally noted elevated TSH, will switch levothyroxine for now to IV 65 mcg. Additionally with history of diabetes, noted 1+ ketones in urine. Although anion gap is not impressive 0.3. Bicarb is 21. Check serum ketones, VBG. With history of CAD, CHF, will assess TTE. Monitor on telemetry with history of arrhythmia. She was previously also on midodrine, although currently has not been able to tolerate oral medications. Qualifiers: Hypotension type: unspecified hypotension type Qualified Code(s): I95.9 - Hypotension, unspecified (2) Enterocolitis: With thickening of colonic wall as well as parts of small at this time. Had profuse diarrhea, nausea and vomiting, currently only nausea, vomiting, not tolerating oral intake. Bowel rest, clear liquid diet only as tolerating, consistent carbohydrate, IV hydration. Check stool studies including C. difficile, Salmonella, Shigella, Campylobacter panel, lactoferrin, Hemoccult. Ova and parasites have been ordered as well. Check respiratory viral panel. Mild diffuse abdominal pain. Received Cipro Flagyl, continue PPI for now, de- escalate depending on condition, findings. (3) Hypokalemia: Replace hypokalemia. Has received some magnesium. Recheck magnesium level. (4) Hypomagnesemia: Received supplementation. Recheck level. (5) Adrenal insufficiency: [employer], hydrocortisone as above. (6) Acquired hypothyroidism: TSH 15.91. Has not been able to take her medications. Receiving stress dose steroids as above. Will give levothyroxine by IV for now. Plan CAD: Plavix if able to tolerate, will give [place] aspirin for now. CHF: Currently not in exacerbation A-fib: Normally on Eliquis but has been unable to tolerate oral medications. For now Lovenox 70 mg every 24 hours. CKD: Creatinine 1.1 appears close to baseline. At risk of acute kidney injury with hyperkalemia, low oral intake. Hypotension. Reassess renal function. Electrolytes. Acid-base. GERD: PPI by IV at the moment. COPD: Not in exacerbation. Breathing treatments scheduled and as needed. History of HTN: This appears to be remote history, she is for the most part been having low blood pressures. Currently hypotensive. Smoking addiction: Encourage cessation. Nicotine replacement as needed. DM2: Accu-Cheks every 6 hours, insulin sliding scale. Guesses carb diet. Diabetic neuropathy: Hold off gabapentin for now due to hypotension. HLD: Hold off statin for now Attestations 2 Medical Necessity Statement*: Admission of over 2 midnights anticipated for assessment of management of hypovolemic shock, adrenal crisis, enterocolitis, electrolyte abnormalities in a lady with underlying adrenal insufficiency, hypothyroidism, coronary disease, CHF, COPD and other comorbidities. Coding Level of Care Code Critical Care >/= 30 minutes Critical care time (in minutes): 35 The high probability of a clinically significant, sudden or life threatening deterioration, as referenced in this documentation, required my full and direct attention, intervention and personal management. The critical care time shown is in addition to time spent performing any reported separately billable procedures and includes the following: [x] Data and vital sign review and interpretation [x ] Patient assessment, examination and intervention [x] Medication orders and management [x] Patient/Family updates as able [x] Care Coordination and Documentation. Diagnoses Hypotension, unspecified hypotension type I95.9 Hypotension type: unspecified hypotension type Enterocolitis K52.9 Hypokalemia E87.6 Hypomagnesemia E83.42 Adrenal insufficiency E27.40 Acquired hypothyroidism E03.9
--- NOTE | 2023-08-25 21:25 | PC.NURSE ---
this production underwriter gave report to Rafaela CUENCA in ICU @ 1915. This production underwriter was about to transport pt when she reported that she had some urine incontinence. Pt's clothes removed, gown placed. Skin cleansed with dried then a brief put on. Pt reported that she has multiple episodes of incontinence at night and she wasn't wearing a brief d/t well my daughter was hurrying so much that they just didn't bother putting one on me before we left . Juan placed under pt to stay dry for transfer to ICU.
[2023-08-25 21:37] LABS: Base Excess VBG -2.4 mmol/L (-3.0-3.0); Blood Gas Operator Identificat JB; Blood Gas Sample Site Not specified; Blood Gas Sample Type Venous; HCO3 VBG 23.2 mmol/L (24-28); PCO2 VBG 42.1 mmHg (41-51); PO2 VBG 28.9 mmHg (25-40); Venous Blood Gas Hematocrit 39.4 % (37-47); pH VBG 7.35 (7.32-7.42)
[2023-08-25 21:38] LABS: Glucose Point of Care 85 mg/dL (70-110)
[2023-08-25] MEDS: hydrocortisone 100 mg/2 mL SDV IVP (21:42)
[2023-08-25] MEDS: lactated ringers 1,000 ML 100 ML IV (21:42)
[2023-08-25] MEDS: pantoprazole 40 mg SDV IVP (21:43)
[2023-08-25] MEDS: levothyroxine 100 mcg SDV 65 MCG IVP (21:43)
[2023-08-25] MEDS: enoxaparin 100 mg/mL Syringe 70 MG SUBCUT (21:44)
[2023-08-25] MEDS: aspirin 300 mg Supp 150 MG PR (21:51)
[2023-08-25] MEDS: lidocaine 1% 5 ML in potassium chloride premix 100 ML 52.5 ML IV (21:54)
[2023-08-25 21:57] LABS: Ketone (Acetest) Serum Negative (Negative)
[2023-08-25] MEDS: ciprofloxacin 400 MG/200 ML PREMIX 200 MG IV (22:26)
[2023-08-25] MEDS: metroNIDAZOLE IV 500 MG/100 ML PREMIX 100 MG IV (22:26)
[2023-08-26] VITALS (27 sets, daily range): BP systolic 90–126; BP diastolic 54–83; PULSE 62–88; RESP 8–18; TEMP 36.6–36.8; O2SAT 93–100
[2023-08-26] MEDS: hydrocortisone 100 mg/2 mL SDV IVP ×3 (02:59→20:55)
[2023-08-26] MEDS: morphine 4 mg/mL SDV 1 mL 2 MG IVP ×3 (03:22→21:04)
[2023-08-26] MEDS: ondansetron 2 mg/ML SDV 2 mL 4 MG IVP ×2 (03:22→15:36)
[2023-08-26] MEDS: ipratropium-albuterol 3 mL Neb INHALATION ×4 (03:42→22:11)
[2023-08-26 04:39] LABS: Basophils % 0.1 %; Eosinophils % 0.1 %; Hematocrit 39.9 % (36-47); Lymphocytes # 1.9 10^3/uL (0.8-4.8); Lymphocytes % 17.8 %; Mean Corpuscular HGB Conc 30.1 g/dL (30-55); Mean Corpuscular Hemoglobin 31.9 pg (27-33); Mean Corpuscular Volume 106.1 fl (85-98); Mean Platelet Volume 12.1 fL (7.4-10.4); Monocytes # 0.2 10^3/uL (0.2-0.9); Monocytes % 1.8 %; Neutrophils # 8.31 10^3/uL (1.8-7.7); Neutrophils % 79.8 %; Nucleated Red Blood Cells % 0 %; Platelet Count 163 10^3/cmm (157-399); Red Blood Count 3.76 10^6/uL (3.85-5.65); Red Cell Distribution Width 16.6 % (12.1-15.1); White Blood Count 10.41 10^3/uL (3.29-11.43)
--- NOTE | 2023-08-26 07:35 | XR_ITS ---
WS: [id number] PORTABLE CHEST HISTORY: Post PICC insertion COMPARISON: 01/25/2024 Left-sided PICC line has been placed with tip at the caval atrial junction. No complications. Lung volumes are decreased due to positioning and poor inspiration. No pleural effusion or pneumothor ax. Cardiac size: Normal. Mediastinum/Aorta: Mild widening of the mediastinum. No osseous abnormality seen. IMPRESSION: Satisfactory placement of LEFT PICC line with no complication.
[2023-08-26 07:46] LABS: Alanine Aminotransferase 27 U/L (0-33); Alkaline Phosphatase 129 U/L (35-105); Anion Gap 15.1 (5-19); Aspartate Amino Transferase 30 U/L (0-32); Blood Urea Nitrogen 7 mg/dL (8-23); Calcium 7.1 mg/dL (8.5-10.5); Carbon Dioxide 22 mmol/L (22-29); Chloride 102 mmol/L (98-107); Globulin 2.8 g/dL (1.3-4.6); Glomerular Filtration Rate 55.3 mL/min (90-130); Glucose 97 mg/dL (65-115); Magnesium 1.7 mg/dL (1.7-2.3); Osmolality Calculated 278 mOsm/kg (285-295); Phosphorus 3.2 mg/dL (2.5-4.5); Potassium 4.1 mmol/L (3.5-5.1); Sodium 135 mmol/L (136-145); Total Bilirubin 0.8 mg/dL (0.15-1.2); Total Protein 4.8 g/dL (6.6-8.7)
--- NOTE | 2023-08-26 08:20 | PC.NURSE ---
Triple lumen PICC placed to left basilic vein. Referred to vascular access nurse due to poor access. Risks and benefits discussed with patient and patient daughter. Informed consent obtained from patient. Left arm assessed with left basilic vein measuring 4 mm, straight, and apparent best choice for placement. Using sterile technique and MST, left basilic vein accessed x 1 stick. Trimmed cath 39 cm with external length 0 cm. Mid-arm circumference measured 10 cm from left AC 28 cm. CXR shows tip in distal SVC, cavoatrial junction, good to use per radiologist. Line secured with stat-lock. Insertion site covered with Biopatch and TSM. Report given to bedside nurseFrederick.
[2023-08-26 08:27] LABS: Troponin(5th) Baseline 47 ng/L (0-10)
[2023-08-26 08:35] LABS: Free T4 Free Thyroxine 1.46 ng/dL (0.82-1.77); Procalcitonin 0.36 ng/mL (0-0.5); T3 Free 0.7 PG/ML (2.0-4.4)
[2023-08-26 08:46] LABS: C Reactive Protein 18.3 mg/L (0.0-4.9)
[2023-08-26] MEDS: lactated ringers 1,000 ML 100 ML IV ×2 (09:01→18:07)
[2023-08-26] MEDS: ciprofloxacin 400 MG/200 ML PREMIX 200 MG IV ×2 (09:02→20:56)
--- NOTE | 2023-08-26 09:09 | PC.PHAR ---
Addendum entered by Lizeth Pathak 08/26/23 11:03: PTS DAUGHTER STATES THE PT HAS BEEN OUT OF VIT C FOR 2 WEEKS-PTS DAUGHTER STATES THE PT IS STILL TAKING CALCITRIOL 0.25MCG ON Sat AND SAT EXT MED HISTORY SHOWS LAST FILLED 03/26/23 90D/S-PTS DAUGHTER STATES THE PT IS STILL TAKING ELIQUIS 2.5MG BID EXT SHOWS LAST FILLED 06/14/23 30D/S-STATES THE PT IS TAKING FOLIC ACID 1MG DAILY EXT SHOWS LAST FILLED 06/14/23 30D/S-GABAPENTIN 300MG TAKE 900MG QAM AND 600MG QPM EXT SHOWS LAST FILLED 06/25/23/30D/S-LEVOTHYROXINE 125MCG DAILY EXT SHOWS LAST FILLED 06/14/23 30D/S-METHENAMMINE 1G QAM EXT SHOWS LAST FILLED 05/06/23 30D/S-MIDODRINE 10MG TID EXT SHOWS LAST FILLED 07/07/23 30D/S-PTS DAUGHTER STATES THE PT NEVER GOT THE PHOSPHA 250MGBID STATES THE COPAY WAS CLOSE TO 400 DOLLARS-PTS DAUGHTER ALSO STATES THE PT DIDNT GET THE RX WRITTEN FOR CALPHRON 667MG TAKE 2 TABS TID OR ZINC 25MG DAILY WRITTEN ON 07/04/23 FROM Original Note: pts daughter kyle verified pts medications -notes are made in the pharmacy comments
[2023-08-26] MEDS: clopidogrel 75 mg Tablet PO (09:16)
[2023-08-26] MEDS: fludrocortisone 0.1 mg Tablet 0.100000000000000006 MG PO (09:16)
[2023-08-26 09:31] LABS: Lactic Sepsis W/Reflex 0.8 mmol/L (0.5-2.2)
[2023-08-26 09:34] LABS: Erythrocyte Sedimentation Rate < 1 mm/hr (0-15)
[2023-08-26 09:34] LABS: Troponin 5 2HR 48.85 ng/L (0-10); Troponin 5 2HR Delta 1.85 ABS# (0-10)
--- NOTE | 2023-08-26 10:01 | ECG_ITS ---
[facility] Test Date: 2023-08-26 Pat Name: Peri Cid Department: Room: ICU01 Gender: Female Manager Media: : 1955 Requested By: Danielito Reece Order Number: [id number] Arturo MD: Gaston Yuan M.D. Measurements Intervals [place] Rate: 82 P: 59 DC: 153 QRS: -54 QRSD: 118 T: 36 QT: 381 QTc: 448 Interpretive Statements SINUS RHYTHM INFERIOR MYOCARDIAL INFARCTION , PROBABLY OLD [40+ ms Q WAVE AND/OR ST/T ABNORMALITY IN II/aVF] ANTEROLATERAL MYOCARDIAL INFARCTION , OF INDETERMINATE AGE [40+ ms Q WAVE IN I/aVL/V3-V6] Compared to ECG 08/25/2023 17:27:08 Left anterior fascicular block no longer present Myocardial infarct finding still present Electronically Signed On 08-26-2023 11:03:14 INCOME TAX ADJUSTER by Gaston Yuan M.D. [email or web address].[employer]/store/[id number]
[2023-08-26 10:30] LABS: Glucose Point of Care 176 mg/dL (70-110)
--- NOTE | 2023-08-26 10:48 | P.PN_ITS ---
Subjective 2 Subjective: Patient was seen this morning, her daughters at bedside, she is having a PICC line placed, due to difficulty with IV access, she is off all pressors, she tells me that her appetite is improving she would like to try some clear liquids, no diarrhea, no lightheadedness, no dizziness, no fevers, no chills, Vitals/I&O/Wt Last Vital Signs Temp 98.2 F 08/26/23 02:00 Pulse 84 08/26/23 09:35 Resp 16 08/26/23 09:35 BP 119/75 08/26/23 09:00 Pulse Ox 94 08/26/23 09:35 O2 Del Method Nasal Cannula 08/26/23 09:35 O2 Flow Rate 2 08/26/23 09:35 08/25/23 08/26/23 08/26/23 22:59 06:59 14:59 Intake Total 1882.55 / 1882.55 405 / 2287.55 1000 / 1000 Output Total 250 / 250 Balance 1882.55 / 1882.55 155 / 2037.55 1000 / 1000 Weight last 48 hrs Weight 70.76 kg Weight 68.946 kg Weight 68.039 kg Physical Exam 2 Const: COMMON NORMALS: no acute distress and patient oriented x3 Resp: COMMON NORMALS: normal respiratory effort, No retractions, No use of accessory muscles and clear to auscultation bilaterally AUSCULTATION: clear to auscultation bilaterally Cardio: COMMON NORMALS: regular rate, regular rhythm, S1 normal heart sound present and S2 normal heart sound present RATE: regular rate RHYTHM: r egular rhythm HEART SOUNDS: S1 normal heart sound present and S2 normal heart sound present GI: COMMON NORMALS: Normal to inspection, nondistended, normoactive bowel sounds present and non-tender Extremity: COMMON NORMALS: no pedal edema Neuro: COMMON NORMALS: patient oriented x3 Psych: COMMON NORMALS: mental status grossly normal Urinary Catheter Management: Hooper: Cath Placed During This Visit: yes Reason for Continuing Indwelling Catheter: Accurate Measurement of Urinary Output in Critically Ill Patients Urinary Catheter Date of Insertion: 08/25/23 Urinary Catheter Time of Insertion: 22:59 Data 08/26/23 03:30 08/26/23 07:00 Micro: Microbiology 08/25/23 18:50 Blood Culture - Preliminary Blood SPECIMEN COLLECTED 08/25/23 17:33 Blood Culture - Preliminary Blood SPECIMEN COLLECTED A&P Assessment and plan (1) Hypotension: -Likely multifactorial -From dehydration, hypovolemia -Component associated with adrenal insufficiency -midodrine 10mg 3 times daily ? Continue IV fluids, continue ?continue hydrocortisone IV push, add on fludrocortisone Qualifiers: Hypotension type: unspecified hypotension type Qualified Code(s): I95.9 - Hypotension, unspecified (2) Enterocolitis: CT/CT abdomen pelvis w con* [id number] IMPRESSION: New low-density wall thickening seen through much of the colon as well as portions of small bowel raising consideration of enterocolopathy of portal hypertension, enterocolitis (either infectious/inflammatory or ischemic) , or angioedema. Mild increase in ascites which remains small. Large gallstone again noted within gallbladder. Fatty liver. PLAN: -ruq us -follow LFT, lipase, ggt -Continue ciprofloxacin, Flagyl ? Stool studies (3) Hypokalemia: Replace hypokalemia. Has received some magnesium. Recheck magnesium level. (4) Hypomagnesemia: Received supplementation. Recheck level. (5) Adrenal insufficiency: as above. (6) Acquired hypothyroidism: TSH 15.91. Has not been able to take her medications. Receiving stress dose steroids as above. Plan CAD: Plavix if able to tolerate, asa CHF: Currently not in exacerbation A-fib: Normally on Eliquis CKD: Creatinine 1.1 appears close to baseline. At risk of acute kidney injury with hyperkalemia, low oral intake. Hypotension. Reassess renal function. Electrolytes. Acid-base. GERD: PPI by IV at the moment. COPD: Not in exacerbation. Breathing treatments scheduled and as needed. History of HTN: This appears to be remote history, she is for the most part been having low blood pressures. Currently hypotensive. Smoking addiction: Encourage cessation. Nicotine replacement as needed. DM2: Accu-Cheks every 6 hours, insulin sliding scale. Guesses carb diet. Diabetic neuropathy: Hold off gabapentin for now due to hypotension. HLD: Hold off statin for now Attestations 2 Medical Necessity Statement*: Patient requires hospitalization for hypotension, dehydration, enterocolitis, concerns for adrenal insufficiency, hypokalemia, hypomagnesemia Coding Level of Care Code Acute Code for Chg Fwd Diagnoses Hypotension, unspecified hypotension type I95.9 Hypotension type: unspecified hypotension type Enterocolitis K52.9 Hypokalemia E87.6 Hypomagnesemia E83.42 Adrenal insufficiency E27.40 Acquired hypothyroidism E03.9
[2023-08-26] MEDS: midodrine 5 mg TABLET 10 MG PO ×2 (11:41→18:06)
[2023-08-26] MEDS: gabapentin 300 mg Capsule 900 MG PO (11:42)
[2023-08-26] MEDS: calcitriol 0.25 mcg Capsule PO (12:14)
[2023-08-26 12:20] LABS: Vitamin B12 530 pg/mL (232-1245)
[2023-08-26 12:41] LABS: Folate Level 17.2 ng/mL (4.8-37.3)
--- NOTE | 2023-08-26 14:01 | ECG_ITS ---
[facility] Test Date: 2023-08-26 Pat Name: Peri Cid Department: Room: ICU01 Gender: Female Business Enterprise Officer: : 1955 Requested By: Danielito Reece Order Number: [id number] Arturo MD: Gaston Yuan M.D. Measurements Intervals [place] Rate: 76 P: 80 WA: 154 QRS: -54 QRSD: 97 T: 60 QT: 389 QTc: 439 Interpretive Statements SINUS RHYTHM LOW QRS VOLTAGE IN EXTREMITY LEADS [QRS DEFLECTION < 0.5 mV IN LIMB LEADS] LEFT ANTERIOR FASCICULAR BLOCK [QRS AXIS <= -45, QR IN I, RS IN II] INFERIOR MYOCARDIAL INFARCTION , PROBABLY OLD [40+ ms Q WAVE AND/OR ST/T ABNORMALITY IN II/aVF] ANTEROLATERAL MYOCARDIAL INFARCTION , OF INDETERMINATE AGE [40+ ms Q WAVE IN I/aVL/V3-V6] Compared to ECG 08/26/2023 09:47:48 Low QRS voltage now present Left anterior fascicular block now present Myocardial infarct finding still present Electronically Signed On 08-26-2023 16:16:41 CODING COORDINATOR by Gaston Yuan M.D. [id number]
[2023-08-26 14:03] LABS: Troponin 5 6HR 44.28 ng/L (0-10)
[2023-08-26 14:06] LABS: Troponin 5 6HR Delta -2.72 ng/L (0-12)
[2023-08-26 15:15] LABS: Glucose Point of Care 145 mg/dL (70-110)
[2023-08-26] MEDS: insulin lispro 100 unit/1 mL SUBCUT ×2 (15:28→21:23)
[2023-08-26] MEDS: metroNIDAZOLE IV 500 MG/100 ML PREMIX 100 MG IV ×2 (15:32→23:46)
--- NOTE | 2023-08-26 15:32 | PC.NURSE ---
hand-off report provided to Med surg nurse Jose Armando Pt has been informed that she is going to m/s room 277-2, she informed her family about the transfer.
--- NOTE | 2023-08-26 16:00 | PC.NURSE ---
Ushered pt via bed with all her belongings sent w/her-clothes,cellphone,stud setter.
[2023-08-26 16:47] LABS: Glucose Point of Care 156 mg/dL (70-110)
[2023-08-26 17:28] LABS: Adenovirus Not Detected (NOT DETECT); Chlamydia Pneumoniae Not Detected (NOT DETECT); Coronavirus 229E,HKU1,NL63,OC4 Not Detected (NOT DETECT); Human Metapneumovirus Not Detected (NOT DETECT); Human Rhinovirus/Enterovirus Not Detected (NOT DETECT); Influenza A Not Detected (NOT DETECT); Influenza A H1 Not Detected (NOT DETECT); Influenza A H1-2009 Not Detected (NOT DETECT); Influenza A H3 Not Detected (NOT DETECT); Influenza B Not Detected (NOT DETECT); Mycoplasma Pneumoniae Not Detected (NOT DETECT); Parainfluenza Virus Type 1 Not Detected (NOT DETECT); Parainfluenza Virus Type 2 Not Detected (NOT DETECT); Parainfluenza Virus Type 3 Not Detected (NOT DETECT); Parainfluenza Virus Type 4 Not Detected (NOT DETECT); Respiratory Syncytial Virus A Not Detected (NOT DETECT); Respiratory Syncytial Virus B Not Detected (NOT DETECT); SARS-COV-2 Not Detected (NOT DETECT)
[2023-08-26] MEDS: gabapentin 300 mg Capsule 600 MG PO (18:07)
--- NOTE | 2023-08-26 20:28 | USCV_ITS ---
Peri Cid Age: 67 Gender: F : 1955 Exam Date: 08/26/2023 13:01 Ordering Phys: Max Thomas MD Technologist: Exam Location: [facility] [place] Indication: chf BP: 115 / 64 HR: 0 Rhythm: Sinus Technical Quality: Adequate MEASUREMENTS (Male / Female) Normal Values 2D ECHO LV Diastolic Diameter PLAX 4.1 cm 4.2 - 5.9 / 3.9 - 5.3 cm IVS Diastolic Thickness 1.1 cm 0.6 - 1.0 / 0.6 - 0.9 cm IVS Systolic Thickness 1.7 cm LVPW Diastolic Thickness 1.2 cm 0.6 - 1.0 / 0.6 - 0.9 cm LVPW Systolic Thickness 1.5 cm LVOT Diameter 2.0 cm LV Ejection Fraction 2D Teich 52.6 % LV Ejection Fraction MOD 2C 72.1 % LV Ejection Fraction 2C AL 0.0 % LA Diameter 3.5 cm M-MODE LA Ao Ratio MM 1.1 AV Cusp Separation MM 1.7 cm FINDINGS Left Ventricle Mild left ventricular hypertrophy. Slightly dyskinetic basal inferobasal segment. Dyskinetic basal inferior segment. Normal LV size with a slightly diminished ejection fraction of 50% (visual) Right Ventricle The right ventricle is normal in size and function. Right Atrium The right atrium is normal in size. Left Atrium The left atrium is normal in size. Mitral Valve Moderate mitral annular calcification. Aortic Valve No gross abnormalities noted Tricuspid Valve No gross abnormalities no Pulmonic Valve No gross abnormalities noted Pericardium Normal pericardium without effusion. Aorta Normal ascending aorta dimension. IVC The inferior vena cava appears normal. CONCLUSIONS Normal LV size with a slightly diminished ejection fraction of 50% (visual). Mild left-ventricular hypertrophy. Wall motion abnormalities as mentioned above Moderate mitral annular calcification. Normal RV size and ejection fraction There is no pericardial effusion. There are no intracardiac masses. Compared to the study from 06/27/2023, the wall motion abnormalities appear to be new Dr Taylor Grande MD FAC (Electronically Signed) Final Date: 26 August 2023 20:07 S
--- NOTE | 2023-08-26 20:28 | US_ITS ---
WS: [id number] RIGHT UPPER QUADRANT ULTRASOUND HISTORY: hyperbilirubinemia, dehydration vs obstruction COMPARISON: 06/11/2023 Liver: 15.0 cm in length. Dense echogenic liver. Nodular surface suggesting cirrhosis. Marked attenua tion and fatty infiltration. There is a small amount of perihepatic fluid. Normal portal vein. Portal Vein: Normal hepatopetal flow with monophasic waveform. Gallbladder: Normally distended with cholelithiasis. Several large stones are noted within the gallbl adder. No pericholecystic fluid. CBD: 0.4 cm Pancreas: Completely obscured. Right kidney: 9.0 cm in length. Limited but no obstruction. Aorta and IVC: Not visualized. Small amount of ascites. IMPRESSION: 1. Extremely difficult evaluation of the RIGHT upper quadrant due to body habitus. 2. Cholelithiasis without acute cholecystitis. No bile duct dilatation. 3. Cirrhotic liver with hepatic steatosis.
[2023-08-26] MEDS: atorvastatin 40 mg Tablet 20 MG PO (20:55)
[2023-08-26] MEDS: pantoprazole 40 mg SDV IVP (20:55)
[2023-08-26] MEDS: mirtazapine 30 mg Tablet PO (20:56)
[2023-08-26] MEDS: apixaban 5 mg Tablet 2.5 MG PO (20:56)
[2023-08-26 20:59] LABS: Glucose Point of Care 146 mg/dL (70-110)
[2023-08-27] VITALS (34 sets, daily range): BP systolic 93–119; BP diastolic 54–73; PULSE 57–104; RESP 2–28; TEMP 36.4–36.7; O2SAT 91–96
[2023-08-27 02:00] LABS: Glucose Point of Care 112 mg/dL (70-110)
[2023-08-27] MEDS: ipratropium-albuterol 3 mL Neb INHALATION ×3 (03:07→20:12)
[2023-08-27] MEDS: lactated ringers 1,000 ML 100 ML IV ×2 (04:02→14:56)
[2023-08-27] MEDS: midodrine 5 mg TABLET 10 MG PO ×3 (04:02→18:05)
[2023-08-27 05:18] LABS: Basophils % 0.1 %; Hematocrit 31.1 % (36-47); Lymphocytes # 1.7 10^3/uL (0.8-4.8); Lymphocytes % 20.4 %; Mean Corpuscular HGB Conc 31.8 g/dL (30-55); Mean Corpuscular Hemoglobin 31.7 pg (27-33); Mean Corpuscular Volume 99.7 fl (85-98); Mean Platelet Volume 12.4 fL (7.4-10.4); Monocytes # 0.3 10^3/uL (0.2-0.9); Monocytes % 3.6 %; Neutrophils # 6.09 10^3/uL (1.8-7.7); Nucleated Red Blood Cells % 0 %; Platelet Count 180 10^3/cmm (157-399); Red Blood Count 3.12 10^6/uL (3.85-5.65); Red Cell Distribution Width 16.4 % (12.1-15.1); White Blood Count 8.12 10^3/uL (3.29-11.43)
[2023-08-27 05:43] LABS: Alanine Aminotransferase 27 U/L (0-33); Albumin Level 1.9 g/dL (3.5-5.2); Alkaline Phosphatase 109 U/L (35-105); Anion Gap 13.8 (5-19); Aspartate Amino Transferase 33 U/L (0-32); Blood Urea Nitrogen 6 mg/dL (8-23); Calcium 6.9 mg/dL (8.5-10.5); Carbon Dioxide 22 mmol/L (22-29); Chloride 105 mmol/L (98-107); Globulin 2.4 g/dL (1.3-4.6); Glomerular Filtration Rate 62.5 mL/min (90-130); Glucose 119 mg/dL (65-115); Magnesium 1.6 mg/dL (1.7-2.3); Osmolality Calculated 283 mOsm/kg (285-295); Potassium 3.8 mmol/L (3.5-5.1); Sodium 137 mmol/L (136-145); Total Bilirubin 0.5 mg/dL (0.15-1.2); Total Protein 4.3 g/dL (6.6-8.7)
[2023-08-27 05:44] LABS: Lactate (Lactic Acid level) 1.1 mmol/L (0.5-2.2)
[2023-08-27] MEDS: levothyroxine 125 mcg Tablet PO (05:54)
[2023-08-27] MEDS: metroNIDAZOLE IV 500 MG/100 ML PREMIX 100 MG IV ×3 (05:54→22:46)
[2023-08-27] MEDS: folic acid 1 mg Tablet PO (05:54)
[2023-08-27 05:56] LABS: Phosphorus 2.6 mg/dL (2.5-4.5)
--- NOTE | 2023-08-27 08:09 | ECG_ITS ---
[facility] Test Date: 2023-08-27 Pat Name: Peri Cid Department: Room: 277 Gender: Female Senior Salesforce Developer: : 1955 Requested By: Danielito Reece Order Number: [id number] Arturo MD: Taylor Grande M.D. Measurements Intervals [place] Rate: 79 P: 54 SC: 142 QRS: -38 QRSD: 104 T: 155 QT: 399 QTc: 459 Interpretive Statements SINUS RHYTHM INFERIOR MYOCARDIAL INFARCTION , PROBABLY OLD [40+ ms Q WAVE AND/OR ST/T ABNORMALITY IN II/aVF] ANTEROLATERAL MYOCARDIAL INFARCTION , OF INDETERMINATE AGE [40+ ms Q WAVE IN I/aVL/V3-V6] Compared to ECG 08/26/2023 14:07:25 Left anterior fascicular block no longer present Myocardial infarct finding still present Electronically Signed On 08-27-2023 18:23:44 BARREL COATER by Taylor Grande M.D. [id number]
[2023-08-27] MEDS: morphine 4 mg/mL SDV 1 mL 2 MG IVP ×3 (08:21→20:14)
[2023-08-27] MEDS: hydrocortisone 100 mg/2 mL SDV IVP (08:22)
[2023-08-27] MEDS: gabapentin 300 mg Capsule 900 MG PO (08:22)
[2023-08-27] MEDS: magnesium sulfate premix 2 GM/50 ML PIGGYBACK IV (08:22)
[2023-08-27] MEDS: clopidogrel 75 mg Tablet PO (08:22)
[2023-08-27] MEDS: ciprofloxacin 400 MG/200 ML PREMIX 200 MG IV ×2 (08:23→21:13)
[2023-08-27] MEDS: aspirin 81 mg EC Tablet PO (08:23)
[2023-08-27] MEDS: apixaban 5 mg Tablet 2.5 MG PO ×2 (08:23→21:09)
[2023-08-27] MEDS: amiodarone 200 mg Tablet PO (08:23)
[2023-08-27 08:46] LABS: Glucose Point of Care 145 mg/dL (70-110)
[2023-08-27] MEDS: potassium phosphate (mMol PO4) 15 MMOL in sodium chloride 0.9% (100 ml) 100 ML 42 MMOL IV (09:46)
[2023-08-27 09:49] LABS: Troponin(5th) Baseline 30 ng/L (0-10)
--- NOTE | 2023-08-27 10:00 | ECG_ITS ---
[facility] Test Date: 2023-08-27 Pat Name: Peri Cid Department: Room: 277 Gender: Female Disability Liaison Officer: : 1955 Requested By: Danielito Reece Order Number: [id number] Arturo MD: Taylor Grande M.D. Measurements Intervals [place] Rate: 91 P: 46 OR: 162 QRS: -37 QRSD: 111 T: 151 QT: 300 QTc: 370 Interpretive Statements SINUS RHYTHM INFERIOR MYOCARDIAL INFARCTION , PROBABLY OLD [40+ ms Q WAVE AND/OR ST/T ABNORMALITY IN II/aVF] ANTEROLATERAL MYOCARDIAL INFARCTION , OF INDETERMINATE AGE [40+ ms Q WAVE IN I/aVL/V3-V6] Compared to ECG 08/27/2023 08:09:29 No significant changes Electronically Signed On 08-27-2023 18:33:49 PRESS SET UP PERSON by Taylor Grande M.D. [id number]
[2023-08-27 11:35] LABS: Cytomegalovirus Antibody (IGG) >10.00 U/mL; Cytomegalovirus Antibody (IGM) <30.00 AU/mL
[2023-08-27 12:02] LABS: Troponin 5 2HR 38.12 ng/L (0-10); Troponin 5 2HR Delta 8.12 ABS# (0-10)
[2023-08-27 12:18] LABS: Glucose Point of Care 185 mg/dL (70-110)
[2023-08-27 13:00] LABS: CENTROMERE B ANTIBODY <1.0 NEG AI (<1.0 NEG); JO-1 ANTIBODY <1.0 NEG AI (<1.0 NEG); RNP ANTIBODY <1.0 NEG AI (<1.0 NEG); SCL-70 ANTIBODY <1.0 NEG AI (<1.0 NEG); SJOGREN'S ANTIBODY (SS-A) <1.0 NEG AI (<1.0 NEG); SM ANTIBODY <1.0 NEG AI (<1.0 NEG); SS-B <1.0 NEG AI (<1.0 NEG)
[2023-08-27 13:10] LABS: COMPLEMENT COMPONENT C3C 62 mg/dL (83-193); COMPLEMENT COMPONENT C4C 41 mg/dL (15-57)
[2023-08-27 14:51] LABS: Glucose Point of Care 231 mg/dL (70-110)
[2023-08-27] MEDS: insulin lispro 100 unit/1 mL SUBCUT (14:59)
--- NOTE | 2023-08-27 15:14 | P.PN_ITS ---
Subjective 2 Subjective: Patient was seen this morning, she denies any chest pain, no palpitations, discussed her echocardiogram findings with wall motion abnormalities, she is already on aspirin, Plavix, Eliquis at home, does not have any chest pain, but does have intractable nausea vomiting recurrent hospitalizations, her last stent was in the right coronary artery, she tells me she wants to eat something more substantial, no nausea, no vomiting no diarrhea Vitals/I&O/Wt Last Vital Signs Temp 97.7 F 08/27/23 11:33 Pulse 83 08/27/23 14:52 Resp 16 08/27/23 15:05 BP 107/73 08/27/23 11:33 Pulse Ox 94 08/27/23 14:52 O2 Del Method Nasal Cannula 08/27/23 14:52 O2 Flow Rate 2 08/27/23 14:52 08/27/23 08/27/23 08/27/23 06:59 14:59 22:59 Intake Total 1631.667 / 4921.667 1835 / 1835 Output Total 700 / 700 Balance 931.667 / 4221.667 1835 / 1835 Weight last 48 hrs Weight 78.018 kg Weight 78.018 kg Weight 70.76 kg Weight 68.946 kg Weight 68.039 kg Physical Exam 2 Const: COMMON NORMALS: no acute distress and patient oriented x3 Resp: COMMON NORMALS: normal respiratory effort, No retractions, No use of accessory muscles and clear to auscultation bilaterally AUSCULTATION: clear to auscultation bilaterally Cardio: COMMON NORMALS: regular rate, regular rhythm, S1 normal heart sound present and S2 normal heart sound present RATE: regular rate RHYTHM: r egular rhythm HEART SOUNDS: S1 normal heart sound present and S2 normal heart sound present GI: COMMON NORMALS: Normal to inspection, nondistended, normoactive bowel sounds present and non-tender Extremity: COMMON NORMALS: no pedal edema Neuro: COMMON NORMALS: patient oriented x3 Psych: COMMON NORMALS: mental status grossly normal Urinary Catheter Management: Hooper: Cath Placed During This Visit: yes Reason for Continuing Indwelling Catheter: Accurate Measurement of Urinary Output in Critically Ill Patients Urinary Catheter Date of Insertion: 08/25/23 Urinary Catheter Time of Insertion: 22:59 Data 08/27/23 04:58 08/27/23 04:58 Micro: Microbiology 08/25/23 18:50 Blood Culture - Preliminary Blood NEGATIVE TO DATE 08/25/23 17:33 Blood Culture - Preliminary Blood NEGATIVE TO DATE A&P Assessment and plan (1) Hypotension: -Likely multifactorial -From dehydration, hypovolemia -Component associated with adrenal insufficiency -midodrine 10mg 3 times daily ? Will wean down fluids ? Wean hydrocortisone, add on fludrocortisone Qualifiers: Hypotension type: unspecified hypotension type Qualified Code(s): I95.9 - Hypotension, unspecified (2) Enterocolitis: CT/CT abdomen pelvis w con* [id number] IMPRESSION: New low-density wall thickening seen through much of the colon as well as portions of small bowel raising consideration of enterocolopathy of portal hypertension, enterocolitis (either infectious/inflammatory or ischemic) , or angioedema. Mild increase in ascites which remains small. Large gallstone again noted within gallbladder. Fatty liver. -Gallbladder ultrasound IMPRESSION: 1. Extremely difficult evaluation of the RIGHT upper quadrant due to body habitus. 2. Cholelithiasis without acute cholecystitis. No bile duct dilatation. 3. Cirrhotic liver with hepatic steatosis. PLAN: -ruq us -follow LFT, lipase, ggt -Continue ciprofloxacin, Flagyl ? Stool studies (3) Hypokalemia: Replace hypokalemia. Has received some magnesium. Recheck magnesium level. (4) Hypomagnesemia: Received supplementation. Recheck level. (5) Adrenal insufficiency: as above. (6) Acquired hypothyroidism: TSH 15.91. Has not been able to take her medications. Receiving stress dose steroids as above. (7) Wall motion abnormality of inferior wall of left ventricle: - History of severe coronary artery disease one-vessel disease, distal RCA treated with balloon and drug-eluting stent, back in 2019 Echocardiogram - Normal LV size with a slightly diminished ejection fraction of 50% (visual). Mild left-ventricular hypertrophy. Wall motion abnormalities as mentioned above Moderate mitral annular calcification. Normal RV size and ejection fraction There is no pericardial effusion. There are no intracardiac masses. Compared to the study from 06/27/2023, the wall motion abnormalities appear to be new Plan ? Serial EKGs, serial troponins, telemetry monitoring ? Continue aspirin, Plavix, statin -Given wall motion abnormalities, consulted cardiology Plan CAD: Plavix if able to tolerate, asa CHF: Currently not in exacerbation A-fib: Normally on Eliquis CKD: Creatinine 1.1 appears close to baseline. At risk of acute kidney injury with hyperkalemia, low oral intake. Hypotension. Reassess renal function. Electrolytes. Acid-base. GERD: PPI by IV at the moment. COPD: Not in exacerbation. Breathing treatments scheduled and as needed. History of HTN: This appears to be remote history, she is for the most part been having low blood pressures. Currently hypotensive. Smoking addiction: Encourage cessation. Nicotine replacement as needed. DM2: Accu-Cheks every 6 hours, insulin sliding scale. Guesses carb diet. Diabetic neuropathy: Hold off gabapentin for now due to hypotension. HLD: statin for now Attestations 2 Medical Necessity Statement*: Patient requires hospitalization for hypotension, colitis, requiring IV antibiotics, fluid midodrine adrenal insufficiency weaning off stress dose steroids, wall motion abnormalities on echocardiogram consulting cardiology, spoke to cardiology spoke to patient, spoke to nursing staff Diagnoses Hypotension, unspecified hypotension type I95.9 Hypotension type: unspecified hypotension type Enterocolitis K52.9 Hypokalemia E87.6 Hypomagnesemia E83.42 Adrenal insufficiency E27.40 Acquired hypothyroidism E03.9 Wall motion abnormality of inferior wall of left ventricle R94.30
--- NOTE | 2023-08-27 15:56 | PM.CONSULT ---
Providers/Reason For Consult Consulting Physician/Specialty*: Cardiovascular medicine Reason for Consult*: Change in the reading of the echocardiogram Requesting Physician: Shanell Attending Physician: Danielito Reece MD Primary Care Provider: Doug Allen DO History of Present Illness History of Present Illness Peri Cid is a 67 year old female who has a very long list of chronic and serious medical problems. She is in and out of the hospital frequently with multiple issues. Recently it has been bowel issues with chronic nausea, vomiting and diarrhea resulting in multiple electrolyte abnormalities and acid-base imbalance. She was admitted in June with similar problems and was admitted again 2 days ago with diarrhea, nausea, vomiting and weakness. She has had hypomagnesemia, hyponatremia among others. She has had abdominal and pelvic CT scans which shows the suggestion of enterocolitis and there is ascites. When she was here in June she had an echocardiogram which was read as normal left ventricular function and wall motion with an ejection fraction of 59%. She had another echocardiogram this time and that the echo was read as dyskinesis of the inferior base with an ejection fraction of 50%. It is for this reason I was asked to see her. She has had no fewer than 6 electrocardiograms showing an old inferior wall myocardial infarction and poor R wave progression. She has had 2 sets of troponins the first 47, 48 and 44 and the second 30, 38 and the third 1 is pending. She is mildly anemic with a hemoglobin of 9.9. Her magnesium is 1.6. Her electrolytes were normal though she has chronic kidney disease with a glomerular filtration rate of 62. Her cardiac history includes a stent placed to the right coronary artery for chronic total occlusion in 2019. At that time her circumflex, left main and LAD were described as normal. She had a sestamibi examination in 2021 which showed a fixed defect with mild adela-infarct ischemia in the distribution of the right coronary artery. She has a long list of medical problems including super morbid obesity. She has had bariatric surgery. She has chronic headaches and chronic neck pain. She has secondary hyperparathyroidism, chronic kidney disease with a glomerular filtration rate of 62, diabetes with neuropathy, GERD, nephrolithiasis, chronic tobacco abuse, dyslipidemia, COPD, hypertension, pulmonary hypertension, history of diastolic heart failure, sleep apnea, chronic insomnia, questionable adrenal insufficiency and a right toe amputation. As I interview her today she feels like she is better. She is regaining her strength. She denies ever having any chest pain in the last several weeks. She is not short of breath. Review of Systems Narrative: Her review of systems is diffusely positive in nearly every distribution. Medications/Allergies Home Medications Medication Instructions Recorded Confirmed Last Taken Type albuterol sulfate 90 mcg/actuation 2 puff inhalation Q6H PRN 11/29/20 08/26/23 Unknown History aerosol inhaler Shortness Of Breath calcitriol 0.25 mcg capsule 0.25 mcg PO .ON MON,WED,Sat10/15/22 08/26/23 06/10/23 History lidocaine-prilocaine 2.5 %-2.5 % See Rx Instructions .Route .COMPLEX 01/26/23 08/26/23 05/30/23 History topical cream nitroglycerin 0.4 mg sublingual 0.4 mg sublingual Q5M PRN Chest 01/26/23 08/26/23 Unknown History tablet (Nitrostat) Pain omega-3 acid ethyl esters 1 gram 3 cap PO DAILY 01/26/23 08/26/23 06/10/23 History capsule ascorbic acid (vitamin C) 500 mg 500 mg PO QAM #90 tabs 03/26/23 08/26/23 2 Weeks Ago Rx tablet (Vitamin C) ~08/12/23 methenamine hippurate 1 gram tablet 1 g PO QAM #90 tabs 03/26/23 08/26/23 06/10/23 Rx fluticasone propionate 50 2 spray intranasal DAILY PRN 04/25/23 08/26/23 05/30/23 History mcg/actuation nasal Allergy Symptoms spray,suspension midodrine 10 mg tablet 10 mg PO TID 05/30/23 08/26/23 06/10/23 History lansoprazole 30 mg capsule,delayed 30 mg PO DAILY 06/11/23 08/26/23 06/10/23 History release apixaban 5 mg tablet (Eliquis) 2.5 mg (1/2 x 5 mg) PO 06/14/23 08/26/23 Unknown Rx BID@0900,2100 #30 tabs levothyroxine 125 mcg tablet 125 mcg PO QAM #30 tabs 06/14/23 08/26/23 Unknown Rx rosuvastatin 10 mg tablet 10 mg PO BEDTIME 06/24/23 08/26/23 Unknown History tizanidine 4 mg tablet 4 mg PO Q6H PRN Muscle Spasm 06/24/23 08/26/23 Unknown History tramadol 50 mg tablet 50 mg PO BID PRN Pain #60 tabs 07/09/23 08/26/23 Unknown Rx amiodarone 200 mg tablet 200 mg PO QAM 08/26/23 08/26/23 Unknown History aspirin 81 mg tablet,delayed 81 mg PO DAILY 08/26/23 08/26/23 Unknown History release clopidogrel 75 mg tablet 75 mg PO QAM 08/26/23 08/26/23 Unknown History fludrocortisone 0.1 mg tablet 0.1 mg PO QA 08/26/23 08/26/23 Unknown History folic acid 1 mg tablet 1 mg PO QA 08/26/23 08/26/23 Unknown History gabapentin 300 mg capsule See Rx Instructions .Route .COMPLEX 08/26/23 08/26/23 Unknown History metoprolol tartrate 25 mg tablet 12.5 mg PO BID 08/26/23 08/26/23 Unknown History mirtazapine 30 mg tablet 30 mg PO BEDTIME 08/26/23 08/26/23 Unknown History Allergies Allergy/AdvReac Type Severity Reaction Status Date / Time hepatitis B immune globulin Allergy Unknown Unknown Verified 08/25/23 16:43 Current Medications Generic Name Dose Route Start Last Admin Trade Name Freq PRN Reason Stop Dose Admin Albuterol/Ipratropium 3 ml 08/26/23 02:00 08/27/23 14:54 Ipratropium-Albuterol 3 Ml Neb INHALATION Not Given Q6H.RESP CICI Amiodarone HCl 200 mg 08/27/23 09:00 08/27/23 08:23 Amiodarone 200 Mg Tablet PO 200 mg DAILY CICI Administration Apixaban 2.5 mg 08/26/23 21:00 08/27/23 08:23 Apixaban 5 Mg Tablet PO 2.5 mg BID@0900,2100 CICI Administration Aspirin 81 mg 08/27/23 09:00 08/27/23 08:23 Aspirin 81 Mg Ec Tablet PO 81 mg DAILY CICI Administration Atorvastatin Calcium 20 mg 08/26/23 21:00 08/26/23 20:55 Atorvastatin 40 Mg Tablet PO 20 mg BEDTIME CICI Administration Calcitriol 0.25 mcg 08/26/23 11:00 08/26/23 12:14 Calcitriol 0.25 Mcg Capsule PO 0.25 mcg MoWeFr CICI Administration Clopidogrel Bisulfate 75 mg 08/26/23 09:00 08/27/23 08:22 Clopidogrel 75 Mg Tablet PO 75 mg DAILY CICI Administration Folic Acid 1 mg 08/27/23 06:00 08/27/23 05:54 Folic Acid 1 Mg Tablet PO 1 mg QAM CICI Administration Gabapentin 900 mg 08/26/23 11:00 08/27/23 08:22 Gabapentin 300 Mg Capsule PO 900 mg DAILY CICI Administration Gabapentin 600 mg 08/26/23 18:00 08/26/23 18:07 Gabapentin 300 Mg Capsule PO 600 mg QPM CICI Administration Lactated Ringer's 1,000 mls @ 100 mls/hr 08/25/23 20:30 08/27/23 14:56 Lactated Ringers IV 100 mls/hr .Q10H CICI Administration Metronidazole 500 mg in 100 mls @ 100 mls/hr 08/26/23 15:00 08/27/23 14:58 Flagyl Iv IV 100 mls/hr Q8H CICI Administration Protocol Ciprofloxacin/Dextrose 400 mg in 200 mls @ 200 mls/hr 08/26/23 07:00 08/27/23 09:33 Cipro IV Infused Q12H CICI Infusion Protocol Insulin Human Lispro 0 unit 08/25/23 21:00 08/27/23 14:59 Insulin Lispro 100 Unit/1 Ml SUBCUT 6 unit Q6H CICI Administration Protocol Levothyroxine Sodium 125 mcg 08/27/23 06:00 08/27/23 05:54 Levothyroxine 125 Mcg Tablet PO 125 mcg QAM CICI Administration Midodrine 10 mg 08/26/23 11:00 08/27/23 12:41 Midodrine 5 Mg Tablet PO 10 mg Q8H CICI Administration Mirtazapine 30 mg 08/26/23 21:00 08/26/23 20:56 Mirtazapine 30 Mg Tablet PO 30 mg BEDTIME CICI Administration Morphine Sulfate 2 mg 08/25/23 22:51 08/27/23 15:05 Morphine 4 Mg/Ml Sdv 1 Ml IVP 2 mg Q4H PRN Administration SEVERE PAIN Ondansetron HCl 4 mg 08/25/23 20:21 08/26/23 15:36 Ondansetron 2 Mg/Ml Sdv 2 Ml IVP 4 mg Q8H PRN Administration vomiting, or N/V if npo Pantoprazole Sodium 40 mg 08/25/23 20:30 08/26/23 20:55 Pantoprazole 40 Mg Sdv IVP 40 mg Q24H CICI Administration PFSH Acute PFSH: Medical History Neck injury Head injury due to trauma Fall with injury Hypotension Secondary hyperparathyroidism of renal origin Nonscarring hair loss Pain associated with defecation Family history of colon cancer requiring screening colonoscopy Diabetic neuropathy GERD (gastroesophageal reflux disease) Chronic rhinosinusitis Insomnia Diabetic peripheral neuropathy associated with type 2 diabetes mellitus Chronic kidney disease Cystitis cystica Coronary artery disease S/P extracorporeal shock wave therapy Renal calculus, left treated with ESWL with resolution Urolithiasis Recurrent UTI Tobacco abuse CHF (congestive heart failure) ASHD (arteriosclerotic heart disease) Diabetes 1.5, managed as type 2 CKD (chronic kidney disease) Hyperlipidemia EDNA (obstructive sleep apnea) HTN (hypertension) Obesity COPD (chronic obstructive pulmonary disease) Myocardial infarction Surgical History H/O bariatric surgery S/P angioplasty with stent Family History Mother , at age 86 CAD (coronary artery disease) Diabetes Myocardial infarction Hypertension Father , AGE 72 Diabetes CAD (coronary artery disease) Cancer LUNG Brother Diabetes CAD (coronary artery disease) Hypertension Sister Diabetes Social History Smoking and tobacco/nicotine status: current every day tobacco/nicotine user cigarettes Alcohol intake: never Adopted: No Caregiver/support person: No Marital status: Legally Current occupational status: retired and disabled Current gender identity: Female Female Reproductive History: Spontaneous abortions: No Vitals/I&O/Wt Last Vital Signs Temp 97.7 F 08/27/23 11:33 Pulse 83 08/27/23 14:52 Resp 16 08/27/23 15:05 BP 107/73 08/27/23 11:33 Pulse Ox 94 08/27/23 14:52 O2 Del Method Nasal Cannula 08/27/23 14:52 O2 Flow Rate 2 08/27/23 14:52 08/27/23 08/27/23 08/27/23 06:59 14:59 22:59 Intake Total 1631.667 / 4921.667 1835 / 1835 Output Total 700 / 700 Balance 931.667 / 4221.667 1835 / 1835 Weight last 48 hrs Weight 172 lb Weight 172 lb Weight 156 lb Weight 152 lb Weight 150 lb Physical Exam Narrative: GENERAL: In general she looks comfortable and is communicative, oriented x 3 HEENT: Exam within normal limits. NECK: Supple without jugular vein distention. The carotid upstroke is normal without bruits. BACK: Exam normal. LUNGS: Clear. HEART: Regular rate and rhythm. ABDOMEN: Benign without organomegaly or tenderness. EXTREMITIES: No edema. NEUROLOGIC: Exam normal. SKIN: Unremarkable. Multiple bruising and excoriations about the arms. Urinary Catheter Management: Hooper: Cath Placed During This Visit: yes Reason for Continuing Indwelling Catheter: Accurate Measurement of Urinary Output in Critically Ill Patients Urinary Catheter Date of Insertion: 08/25/23 Urinary Catheter Time of Insertion: 22:59 Data 08/27/23 04:58 08/27/23 04:58 Micro: Microbiology 08/25/23 18:50 Blood Culture - Preliminary Blood NEGATIVE TO DATE 08/25/23 17:33 Blood Culture - Preliminary Blood NEGATIVE TO DATE A&P Assessment and plan (1) Myocardial infarction: (2) HTN (hypertension): Qualifiers: Hypertension type: primary hypertension Qualified Code(s): I10 - Essential (primary) hypertension (3) S/P angioplasty with stent: (4) Hyperlipidemia: Qualifiers: Hyperlipidemia type: unspecified Qualified Code(s): E78.5 - Hyperlipidemia, unspecified (5) ASHD (arteriosclerotic heart disease): (6) CHF (congestive heart failure): Qualifiers: Heart failure type: unspecified Heart failure chronicity: chronic Qualified Code(s): I50.9 - Heart failure, unspecified (7) Coronary artery disease: (8) Nicotine dependence, cigarettes, with other nicotine-induced disorders: (9) Pulmonary hypertension: (10) Diabetes 1.5, 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: Qualifiers: Diabetes mellitus custodial insulin use: unspecified delivery representative insulin use status Qualified Code(s): E11.21 - Type 2 diabetes mellitus with diabetic nephropathy (12) Obesity: Qualifiers: Obesity type: due to excess calories Obesity classification: adult class 2 (BMI 35 - 39.9) Body mass index: BMI 37.0-37.9 (13) Enterocolitis: (14) CKD (chronic kidney disease): Qualifiers: Chronic kidney disease stage: stage 3 (moderate) Chronic kidney disease stage 3 subtype: stage 3a (GFR 45-59) Qualified Code(s): N18.31 - Chronic kidney disease, stage 3a (15) Hypomagnesemia: (16) Hypokalemia: (17) COPD (chronic obstructive pulmonary disease): (18) Chronic respiratory failure with hypoxia: (19) EDNA (obstructive sleep apnea): Plan The echoes are 2 months apart. The same individual read the echoes. I looked at both of them and cannot appreciate any significant difference between the 2. It would not be unusual for this patient to have a wall motion disturbance in the distribution of the inferior wall since that is supplied by the right coronary artery. She previously has had a chronic total occlusion there so 1 would expect a wall motion disturbance in this distribution chronically. Her EKG has not changed. She is not having any chest pain. Her troponins are relatively low and flat and certainly could be explained by a multitude of her underlying medical problems. Therefore, I do not see the need to further test her. My concern is that if we start testing her we will find that the stress test is abnormal as it was before and then will be compelled to move further performing coronary angiography. She is not a good candidate for an angiogram, has renal insufficiency and there really is no specific indication for the angiogram in the absence of chest pain, new EKG changes and troponin changes. Therefore, I would recommend we continue to treat her medically. Consult Attestations Medical Necessity Statement: Hospitalization for multiple bowel and electrolyte issues unrelated to cardiac disease and Moderate Time for a total of 40 minutes, includes reviewing past or interval history, examining/interviewing patient, counseling patient/family/other support, updating patient/family/other support, communicating with other healthcare providers and documenting encounter Diagnoses Myocardial infarction I21.9 Primary hypertension I10 Hypertension type: primary hypertension S/P angioplasty with stent Z95.820 Hyperlipidemia, unspecified hyperlipidemia type E78.5 Hyperlipidemia type: unspecified ASHD (arteriosclerotic heart disease) I25.10 Acute on chronic congestive heart failure, unspecified heart failure type I50.9 Heart failure type: unspecified Heart failure chronicity: chronic Coronary artery disease I25.10 Nicotine dependence, cigarettes, with other nicotine-induced disorders F17.218 Pulmonary hypertension I27.20 Diabetes 1.5, managed as type 2 E13.9 Type 2 diabetes mellitus with diabetic nephropathy, unspecified whether delivery representative insulin use E11.21 Diabetes mellitus custodial insulin use: unspecified delivery representative insulin use status Obesity E66.9 Obesity type: due to excess calories Obesity classification: adult class 2 (BMI 35 - 39.9) Body mass index: BMI 37.0-37.9 Enterocolitis K52.9 Stage 3a chronic kidney disease N18.31 Chronic kidney disease stage: stage 3 (moderate) Chronic kidney disease stage 3 subtype: stage 3a (GFR 45-59) Hypomagnesemia E83.42 Hypokalemia E87.6 Chronic obstructive pulmonary disease with acute exacerbation J44.9 Chronic respiratory failure with hypoxia J96.11 EDNA (obstructive sleep apnea) G47.33
[2023-08-27 16:02] LABS: Troponin 5 6HR 33.09 ng/L (0-10); Troponin 5 6HR Delta 3.09 ng/L (0-12)
[2023-08-27 16:53] LABS: Glucose Point of Care 136 mg/dL (70-110)
[2023-08-27] MEDS: gabapentin 300 mg Capsule 600 MG PO (18:05)
[2023-08-27] MEDS: pantoprazole 40 mg SDV IVP (20:14)
[2023-08-27] MEDS: atorvastatin 40 mg Tablet 20 MG PO (21:08)
[2023-08-27] MEDS: mirtazapine 30 mg Tablet PO (21:11)
[2023-08-27 21:12] LABS: Glucose Point of Care 132 mg/dL (70-110)
[2023-08-28] VITALS (51 sets, daily range): BP systolic 74–123; BP diastolic 47–78; PULSE 63–165; RESP 7–30; TEMP 36.3–36.7; O2SAT 83–98
[2023-08-28] MEDS: ipratropium-albuterol 3 mL Neb INHALATION ×4 (02:55→19:59)
[2023-08-28 03:21] LABS: Glucose Point of Care 127 mg/dL (70-110)
[2023-08-28] MEDS: midodrine 5 mg TABLET 10 MG PO ×3 (03:22→19:54)
[2023-08-28] MEDS: morphine 4 mg/mL SDV 1 mL 2 MG IVP ×3 (03:44→23:48)
[2023-08-28 05:53] LABS: Basophils % 0.1 %; Eosinophils % 0.1 %; Hematocrit 34.8 % (36-47); Lymphocytes # 1.7 10^3/uL (0.8-4.8); Lymphocytes % 9.8 %; Mean Corpuscular HGB Conc 31.9 g/dL (30-55); Mean Corpuscular Hemoglobin 32.2 pg (27-33); Mean Corpuscular Volume 100.9 fl (85-98); Mean Platelet Volume 12.3 fL (7.4-10.4); Monocytes % 5.9 %; Neutrophils # 14.28 10^3/uL (1.8-7.7); Neutrophils % 83.2 %; Nucleated Red Blood Cells % 0 %; Platelet Count 177 10^3/cmm (157-399); Red Blood Count 3.45 10^6/uL (3.85-5.65); Red Cell Distribution Width 16.9 % (12.1-15.1); White Blood Count 17.16 10^3/uL (3.29-11.43)
[2023-08-28] MEDS: folic acid 1 mg Tablet PO (06:03)
[2023-08-28] MEDS: levothyroxine 125 mcg Tablet PO (06:03)
[2023-08-28] MEDS: hydrocortisone 10 mg Tablet PO (06:03)
[2023-08-28] MEDS: metroNIDAZOLE IV 500 MG/100 ML PREMIX 100 MG IV ×3 (06:14→23:47)
[2023-08-28 06:23] LABS: Alanine Aminotransferase 33 U/L (0-33); Albumin Level 2.1 g/dL (3.5-5.2); Alkaline Phosphatase 124 U/L (35-105); Blood Urea Nitrogen 6 mg/dL (8-23); Calcium 7.3 mg/dL (8.5-10.5); Carbon Dioxide 20 mmol/L (22-29); Chloride 107 mmol/L (98-107); Creatinine Clr Calc Pharmacy 62.9712; Globulin 2.7 g/dL (1.3-4.6); Glomerular Filtration Rate 62.5 mL/min (90-130); Glucose 101 mg/dL (65-115); Magnesium 1.8 mg/dL (1.7-2.3); Osmolality Calculated 282 mOsm/kg (285-295); Sodium 137 mmol/L (136-145); Total Bilirubin 0.5 mg/dL (0.15-1.2); Total Protein 4.8 g/dL (6.6-8.7)
[2023-08-28 06:26] LABS: Phosphorus 2.6 mg/dL (2.5-4.5)
[2023-08-28 06:33] LABS: Anion Gap 14.6 (5-19); Aspartate Amino Transferase 39 U/L (0-32); Potassium 4.6 mmol/L (3.5-5.1)
[2023-08-28 07:59] LABS: THYROID PEROXIDASE ANTIBODIES <1 IU/mL (<9)
[2023-08-28 08:46] LABS: Glucose Point of Care 175 mg/dL (70-110)
[2023-08-28 08:49] LABS: ANA PATTERN Nuclear, Speckled; ANA SCREEN, IFA POSITIVE (NEGATIVE); ANA TITER 1:40 titer
[2023-08-28] MEDS: gabapentin 300 mg Capsule 900 MG PO (09:22)
[2023-08-28] MEDS: clopidogrel 75 mg Tablet PO (09:23)
[2023-08-28] MEDS: aspirin 81 mg EC Tablet PO (09:23)
[2023-08-28] MEDS: apixaban 5 mg Tablet 2.5 MG PO ×2 (09:23→20:52)
[2023-08-28] MEDS: amiodarone 200 mg Tablet PO (09:23)
[2023-08-28] MEDS: ciprofloxacin 400 MG/200 ML PREMIX 200 MG IV ×2 (09:49→19:55)
--- NOTE | 2023-08-28 09:53 | PC.SOCIAL ---
IMM Update pg 2 of IMM updated and reviewed w/ patient. Copy provided and copy dated, initialed and placed in chart.
[2023-08-28] MEDS: insulin lispro 100 unit/1 mL SUBCUT ×2 (11:24→21:41)
[2023-08-28] MEDS: FUROsemide 10 mg/mL SDV 2mL 20 MG IVP (11:27)
[2023-08-28] MEDS: magnesium lactate 84 mg Tablet PO ×2 (11:27→23:47)
[2023-08-28] MEDS: hydrocortisone 10 mg Tablet 5 MG PO (11:28)
[2023-08-28] MEDS: polyethylene glycol 3350 Pkt 17 gm PO (11:28)
[2023-08-28] MEDS: calcium carbonate 500 mg Chew Tablet 1000 MG PO (11:28)
[2023-08-28 11:42] LABS: NT Pro B Type Natriuretic Pept 17477 pg/mL (0-125)
--- NOTE | 2023-08-28 12:15 | XRR_ITS ---
PROCEDURE INFORMATION: Exam: XR Chest Exam date and time: 08/28/2023 12:48 PM Age: 67 years old Clinical indication: Shortness of breath; Additional info: SOB. No history of recent trauma or surgery is provided. TECHNIQUE: Imaging protocol: Radiologic exam of the chest. 1image(s) are provided. Views: 1 view. COMPARISON: 1. CR XR chest 1V portable [id number] 06/30/2023 12:40 PM 2. CR XR chest 1V portable [id number] 08/26/2023 8:23 AM 3. CR (CHEST, ) 08/25/2023 6:35 PM FINDINGS: Tubes, catheters and devices: The left PICC line remains. Lungs: No lobar consolidation is appreciated. There is however some interstitial and septal thickening suggestive of some interstitial edema. Some superimposed peribronchial, interstitial inflammation could also present in this fashion. The lung volumes are slightly lower overall in the interval with some dependent subsegmental atelectasis. Pleural spaces: There is minimal costophrenic angle blunting. No pneumothorax is appreciated. Heart/Mediastinum: The cardiomediastinal silhouette is upper normal in size.This can be seen with central averaging as well as alireza enlargement.No cardiac decompensation is appreciated. There appear to be some coronary arterial as well as mitral apparatus type calcifications. Diaphragm: There is slight asymmetric right hemidiaphragm elevation. Bones/joints: Osseous alignment is maintained. No interval displaced fracture or dislocation is appreciated.There is slightly decreased bone mineralization overall. Soft tissues: No radiopaque foreign body or subcutaneous emphysema is appreciated. Other findings: No other significant interval changes are appreciated. XR/XR chest 1V portable [id number] IMPRESSION: Early interstitial edema is demonstrated. Consider echocardiography.
[2023-08-28 12:30] LABS: ABG PCO2 29.5 mmHg (35-45); Base Excess ABG -5.3 mmol/L (-2.0-2.0); Blood Gas Allen Test Pos; Blood Gas Operator Identificat GD; Blood Gas Sample Site Radial, left; Blood Gas Sample Type Arterial; Carboxyhemoglobin 1.1 %THgb (0.4-20.1); HCO3 ABG 18.3 mmol/L (22-26); HGB O2 Sat 85.6 % (95-100); Ionized Calcium Level - ABG 1.1 mmol/L (1.1-1.4); Methemoglobin 0.6 % (0.4-1.5); Oxygen Device NC; PO2 FiO2 Ratio Arterial Blood 0; Total Hemoglobin 12.7 g/dL (12-16)
[2023-08-28 12:59] LABS: C Reactive Protein 8.3 mg/L (0.0-4.9)
[2023-08-28 13:03] LABS: Procalcitonin 0.33 ng/mL (0-0.5)
[2023-08-28] MEDS: albumin 25 G/100 ML BAG 60 G IV ×3 (13:19→20:52)
[2023-08-28] MEDS: calcitriol 0.25 mcg Capsule PO (13:19)
[2023-08-28] MEDS: FUROsemide 10 mg/mL SDV 4mL 40 MG IVP (13:33)
[2023-08-28] MEDS: potassium chloride ER 20 mEq Tablet 40 MEQ PO (13:34)
--- NOTE | 2023-08-28 13:35 | P.PN_ITS ---
Subjective 2 Subjective: Patient was seen early this morning, she is sitting up in the chair, she looks short of breath, tachypnea, tachycardia, nasal flaring, intercostal retractions she tells me that she feels short of breath she is alert oriented x 3, following all commands does report lower extreme edema no chest pain, palpitations, no cough we discussed diuresing her due to concerns for fluid overload, no fevers reported, no significant lightheaded or dizziness, she is also complaining of muscle spasms, ? Patient's blood pressures are soft sitting up in chair, 70s over 40s, with evidence of respiratory failure ? Advised nursing staff to move her to bed, was given 20 mg IV push Lasix, with albumin ? She continues to have evidence of respiratory failure nasal, oxygen requirements have increased to 8 L, placed on BiPAP ABG shows acute hypoxic respiratory failure ?patient was moved to ICU for acute hypoxic respiratory failure secondary to fluid overload, acute flash pulm edema, elevated BNP of 14,000 chest x-ray showing acute fluid overload, -Patient was moved to ICU seen in the in tensive care unit, she is alert to person, to place, she follows commands sounds on the BiPAP she looks more comfortable does have tachypnea, is on 50% FiO2, on BiPAP, blood pressures are normotensive ? Plan on diuresis as inpatient, ICU monitoring due to hypotension concerns for hypotension with diuresis given her history of adrenal insufficiency, edition respiratory failure requiring BiPAP acute flash pulm edema Vitals/I&O/Wt Last Vital Signs Temp 97.6 F 08/28/23 04:00 Pulse 104 H 08/28/23 12:29 Resp 18 08/28/23 11:33 BP 74/58 08/28/23 11:33 Pulse Ox 91 08/28/23 12:29 O2 Del Method Nasal Cannula 08/28/23 11:33 O2 Flow Rate 3 08/28/23 08:00 FiO2 50 08/28/23 12:29 08/27/23 08/28/23 08/28/23 22:59 06:59 14:59 Intake Total 540 / 2375 500 / 2875 1140 / 1140 Output Total 850 / 850 250 / 1100 Balance -310 / 1525 250 / 1775 1140 / 1140 Weight last 48 hrs Weight 82.355 kg Weight 78.018 kg Weight 78.018 kg Physical Exam 2 Const: COMMON NORMALS: no acute distress and patient oriented x3 Resp: COMMON NORMALS: normal respiratory effort, No retractions and No use of accessory muscles AUSCULTATION: crackles and wheezes Cardio: COMMON NORMALS: regular rhythm, S1 normal heart sound present and S2 normal heart sound present RATE: tachycardic RHYTHM: regular rhythm H EART SOUNDS: S1 normal heart sound present and S2 normal heart sound present GI: COMMON NORMALS: Normal to inspection, nondistended, normoactive bowel sounds present and non-tender Extremity: NARRATIVE EXTREMITY EXAM: 1+ edema Neuro: COMMON NORMALS: patient oriented x3 Psych: COMMON NORMALS: mental status grossly normal Urinary Catheter Management: Hooper: Cath Placed During This Visit: yes Reason for Continuing Indwelling Catheter: Acute Urinary Retention or Obstruction Urinary Catheter Date of Insertion: 08/25/23 Urinary Catheter Time of Insertion: 22:59 Data 08/28/23 05:41 08/28/23 05:41 A&P Assessment and plan (1) Hypotension: -Likely multifactorial - adrenal insufficiency -midodrine 10mg 3 times daily ? Will wean down fluids ? Wean hydrocortisone, hold fludrocortisone Qualifiers: Hypotension type: unspecified hypotension type Qualified Code(s): I95.9 - Hypotension, unspecified (2) Enterocolitis: CT/CT abdomen pelvis w con* [id number] IMPRESSION: New low-density wall thickening seen through much of the colon as well as portions of small bowel raising consideration of enterocolopathy of portal hypertension, enterocolitis (either infectious/inflammatory or ischemic) , or angioedema. Mild increase in ascites which remains small. Large gallstone again noted within gallbladder. Fatty liver. -Gallbladder ultrasound IMPRESSION: 1. Extremely difficult evaluation of the RIGHT upper quadrant due to body habitus. 2. Cholelithiasis without acute cholecystitis. No bile duct dilatation. 3. Cirrhotic liver with hepatic steatosis. PLAN: -ruq us -follow LFT, lipase, ggt -Continue ciprofloxacin, Flagyl ? Stool studies (3) Hypokalemia: Replace hypokalemia. Has received some magnesium. Recheck magnesium level. (4) Hypomagnesemia: Received supplementation. Recheck level. (5) Adrenal insufficiency: as above. (6) Acquired hypothyroidism: TSH 15.91. Has not been able to take her medications. Receiving stress dose steroids as above. (7) Wall motion abnormality of inferior wall of left ventricle: - History of severe coronary artery disease one-vessel disease, distal RCA treated with balloon and drug-eluting stent, back in 2019 Echocardiogram - Normal LV size with a slightly diminished ejection fraction of 50% (visual). Mild left-ventricular hypertrophy. Wall motion abnormalities as mentioned above Moderate mitral annular calcification. Normal RV size and ejection fraction There is no pericardial effusion. There are no intracardiac masses. Compared to the study from 06/27/2023, the wall motion abnormalities appear to be new Plan ? Serial EKGs, serial troponins, telemetry monitoring ? Continue aspirin, Plavix, statin -Given wall motion abnormalities, consulted cardiology (8) Acute hypoxic respiratory failure: -Acute hypoxic respiratory failure -Secondary to fluid overload, pulmonary edema, systolic CHF -BNP over 14,000, chest x-ray showing pulm vascular congestion ? Plan ? Continue BiPAP ? Fluid restrictions at 1000 cc, ? Continue albumin ? Lasix 40 mg IV twice daily ?monitor fluid status, monitor creatinine, ? Hold fludrocortisone, patient might require pressors to maintain blood pressures with diuresis -Will monitor clinical status closely in the ICU (9) Pulmonary edema: (10) Fluid overload: (11) CHF (congestive heart failure): Qualifiers: Heart failure type: unspecified Heart failure chronicity: chronic Qualified Code(s): I50.9 - Heart failure, unspecified Plan CAD: Plavix if able to tolerate, asa CHF: Currently not in exacerbation A-fib: Normally on Eliquis CKD: Creatinine 1.1 appears close to baseline. At risk of acute kidney injury with hyperkalemia, low oral intake. Hypotension. Reassess renal function. Electrolytes. Acid-base. GERD: PPI by IV at the moment. COPD: Not in exacerbation. Breathing treatments scheduled and as needed. History of HTN: This appears to be remote history, she is for the most part been having low blood pressures. Currently hypotensive. Smoking addiction: Encourage cessation. Nicotine replacement as needed. DM2: Accu-Cheks every 6 hours, insulin sliding scale. Guesses carb diet. Diabetic neuropathy: Hold off gabapentin for now due to hypotension. HLD: statin for now Attestations 2 Medical Necessity Statement*: Patient requires hospitalization for acute hypoxic respiratory failure requiring movement down to the ICU starting on BiPAP IV diuresis likely sec to acute flash pulmonary edema, fluid overload, with hypotension requiring pressors in the ICU, midodrine, ICU level monitoring Coding Level of Care Code Critical Care >/= 30 minutes Critical care time (in minutes): 45 The high probability of a clinically significant, sudden or life threatening deterioration, as referenced in this documentation, required my full and direct attention, intervention and personal management. The critical care time shown is in addition to time spent performing any reported separately billable procedures and includes the following: [x] Data and vital sign review and interpretation [x ] Patient assessment, examination and intervention [x] Medication orders and management [x] Patient/Family updates as able [x] Care Coordination and Documentation. Diagnoses Hypotension, unspecified hypotension type I95.9 Hypotension type: unspecified hypotension type Enterocolitis K52.9 Hypokalemia E87.6 Hypomagnesemia E83.42 Adrenal insufficiency E27.40 Acquired hypothyroidism E03.9 Wall motion abnormality of inferior wall of left ventricle R94.30 Acute hypoxic respiratory failure J96.01 Pulmonary edema J81.1 Fluid overload E87.70 Acute on chronic congestive heart failure, unspecified heart failure type I50.9 Heart failure type: unspecified Heart failure chronicity: chronic
--- NOTE | 2023-08-28 13:52 | PC.OT ---
OT TREATMENT HELD THIS DATE DUE TO TRANSFER TO ICU.
[2023-08-28 14:19] LABS: COMPLEMENT, TOTAL (CH50) 27 U/mL (31-60)
[2023-08-28 15:56] LABS: Glucose Point of Care 130 mg/dL (70-110)
[2023-08-28] MEDS: gabapentin 300 mg Capsule 600 MG PO (17:21)
[2023-08-28] MEDS: pantoprazole 40 mg SDV IVP (19:55)
--- NOTE | 2023-08-28 19:56 | PC.NURSE ---
Received patient from [facility] surge staff at 1311. Patient is alert and oriented to erpson, place, time, and situation. On bipap. HR: 100, BP: 116/77, SPO2: 97%, Temp:97.4. 725mL or urine emptied from drake bag upon arrival. Patient had a bowelmovement during transport to icu and patient was cleaned up with a linen change performed.
--- NOTE | 2023-08-28 19:57 | PC.NURSE ---
SHift summary: Uneventful shift. SInce arrival in ICU, blood pressures have been within normal limits. No levophed needed. 725ml of urine emptied upon arrival and another 1100 emptied after lasix given. Patient quickly desaturates to the low 80's when taken off of bipap for meds, but recovers quickly.
[2023-08-28] MEDS: norepinephrine 4 MG/250 ML BAG 30 MG IV (20:35)
[2023-08-28] MEDS: mirtazapine 30 mg Tablet PO (20:52)
[2023-08-28] MEDS: atorvastatin 40 mg Tablet 20 MG PO (20:52)
[2023-08-28 21:35] LABS: Glucose Point of Care 175 mg/dL (70-110)
[2023-08-29] VITALS (54 sets, daily range): BP systolic 88–125; BP diastolic 43–86; PULSE 84–116; RESP 15–40; TEMP 36.1–36.7; O2SAT 85–99
[2023-08-29] MEDS: ipratropium-albuterol 3 mL Neb INHALATION ×4 (00:59→19:54)
[2023-08-29 03:07] LABS: Glucose Point of Care 140 mg/dL (70-110)
[2023-08-29] MEDS: midodrine 5 mg TABLET 10 MG PO ×3 (03:07→19:25)
[2023-08-29 05:14] LABS: ABG PCO2 38.7 mmHg (35-45); ABG PH Result 7.45 (7.35-7.45); Arterial Blood Gas Hematocrit 29.9 % (37-47); Base Excess ABG 2.5 mmol/L (-2.0-2.0); Blood Gas Allen Test Pos; Blood Gas Operator Identificat JB; Blood Gas Sample Site Radial, right; Blood Gas Sample Type Arterial; HCO3 ABG 26.7 mmol/L (22-26); Oxygen Device BIPAP; PO2 ABG 50.8 mmHg (80.0-100.0); PO2 FiO2 Ratio Arterial Blood 0
[2023-08-29] MEDS: albumin 25 G/100 ML BAG 60 G IV ×3 (05:19→19:28)
[2023-08-29 05:21] LABS: Basophils % 0.1 %; Hematocrit 29.7 % (36-47); Lymphocytes % 11.9 %; Mean Corpuscular Hemoglobin 32.1 pg (27-33); Mean Corpuscular Volume 100.3 fl (85-98); Mean Platelet Volume 13.4 fL (7.4-10.4); Monocytes # 0.8 10^3/uL (0.2-0.9); Neutrophils # 13.83 10^3/uL (1.8-7.7); Neutrophils % 82.2 %; Nucleated Red Blood Cells % 0 %; Platelet Count 139 10^3/cmm (157-399); Red Blood Count 2.96 10^6/uL (3.85-5.65); Red Cell Distribution Width 16.9 % (12.1-15.1); White Blood Count 16.84 10^3/uL (3.29-11.43)
[2023-08-29 05:36] LABS: Lactate (Lactic Acid level) 2.1 mmol/L (0.5-2.2)
[2023-08-29 06:03] LABS: NT Pro B Type Natriuretic Pept 32423 pg/mL (0-125); Procalcitonin 0.86 ng/mL (0-0.5)
[2023-08-29 06:08] LABS: Alanine Aminotransferase 23 U/L (0-33); Alkaline Phosphatase 99 U/L (35-105); Aspartate Amino Transferase 34 U/L (0-32); Blood Urea Nitrogen 6 mg/dL (8-23); C Reactive Protein 52.9 mg/L (0.0-4.9); Calcium 7.1 mg/dL (8.5-10.5); Carbon Dioxide 22 mmol/L (22-29); Chloride 98 mmol/L (98-107); Creatinine Clr Calc Pharmacy 62.9712; Glomerular Filtration Rate 62.5 mL/min (90-130); Glucose 329 mg/dL (65-115); Magnesium 1.7 mg/dL (1.7-2.3); Osmolality Calculated 290 mOsm/kg (285-295); Phosphorus 2.3 mg/dL (2.5-4.5); Sodium 135 mmol/L (136-145); Total Bilirubin 0.8 mg/dL (0.15-1.2)
[2023-08-29 06:11] LABS: Anion Gap 18.4 (5-19); Potassium 3.4 mmol/L (3.5-5.1)
[2023-08-29] MEDS: folic acid 1 mg Tablet PO (06:30)
[2023-08-29] MEDS: hydrocortisone 10 mg Tablet PO (06:30)
[2023-08-29] MEDS: levothyroxine 125 mcg Tablet PO (06:30)
--- NOTE | 2023-08-29 07:00 | XR_ITS ---
WS: [id number] Portable AP upright chest, 08/29/2023 Clinical Data: sob Comparison: Portable chest, 08/28/2023 Findings: Diffuse bilateral patchy opacities have developed in both lungs. There is a right pleural e ffusion. The heart remains slightly enlarged. No pneumothorax is present. There are no nodules or mas ses. The left PICC line remains in the same position. There are monitor leads over the chest wall. Impression: 1. Development of diffuse bilateral patchy opacities which may represent pulmonary edema. 2. Small right pleural effusion. 3. Cardiomegaly.
[2023-08-29] MEDS: lidocaine 1% 5 ML in potassium chloride premix 100 ML 52.5 ML IV (08:52)
[2023-08-29] MEDS: FUROsemide 10 mg/mL SDV 4mL 40 MG IVP ×3 (08:52→23:46)
[2023-08-29] MEDS: meropenem 1,000 MG in sodium chloride 0.9% (plus) 50 ML 100 MG IV ×3 (08:52→23:46)
[2023-08-29 09:00] LABS: Glucose Point of Care 156 mg/dL (70-110)
[2023-08-29] MEDS: clopidogrel 75 mg Tablet PO (09:04)
[2023-08-29] MEDS: aspirin 81 mg EC Tablet PO (09:04)
[2023-08-29] MEDS: fludrocortisone 0.1 mg Tablet 0.100000000000000006 MG PO (09:04)
[2023-08-29] MEDS: gabapentin 300 mg Capsule 900 MG PO (09:04)
[2023-08-29] MEDS: apixaban 5 mg Tablet 2.5 MG PO ×2 (09:04→21:08)
[2023-08-29] MEDS: amiodarone 200 mg Tablet PO (09:04)
[2023-08-29] MEDS: calcium carbonate 500 mg Chew Tablet 1000 MG PO (09:04)
[2023-08-29] MEDS: metOLazone 5 MG Tablet PO (09:04)
[2023-08-29] MEDS: insulin lispro 100 unit/1 mL SUBCUT ×2 (09:10→15:13)
--- NOTE | 2023-08-29 10:24 | PC.PHAR ---
Tl Initial Dosing Patient Information Sex F M/F Last Name Cid AGE 67 years First Name Peri Molina 64 inches : 1955 ABW 81.374 kg Location: ICU-4 IBW 54.7 kg If loading dose given: DW 65.3696 kg Loading DOSE: 1500 mg SCr 0.9 mg/dl This Dose = 22.9 mg/kg CrCl 52.4 ml/min 1st dose Cmax: 29.9 mcg/ml Vd 49.0272 liters Time elapsed: 24.0 hrs Ke 0.048 hrs-1 Serum Conc. = 9.5 mcg/ml t1/2 14 hrs Hrs until 20 mcg/ml 9.4 hrs Hrs until 15 mcg/ml 15.4 hours Hrs until 10 mcg/ml 23.9 hours Dose Tau (Freq) Levels expected Standard 1500 24 Cmax 42.7 Targets 22.95 21.7 Cpeak 40.7 25 to 40 mg/kg hours Cmin 14.9 10 to 20
[2023-08-29] MEDS: magnesium lactate 84 mg Tablet PO ×2 (10:57→22:08)
[2023-08-29] MEDS: vancomycin 1,500 MG/300 ML PIGGYBACK 200 MG IV (10:57)
[2023-08-29] MEDS: hydrocortisone 10 mg Tablet 5 MG PO (12:36)
[2023-08-29] MEDS: norepinephrine 4 MG/250 ML BAG 30 MG IV (12:37)
--- NOTE | 2023-08-29 14:26 | P.PN_ITS ---
Subjective 2 Subjective: - Yesterday afternoon patient developed acute flash pulm edema acute respiratory failure requiring ICU admission, was placed on diuresis -This morning she was seen, she is curre ntly on Levophed at 8 she is diuresed roughly 6 L, remains afebrile, normotensive, on BiPAP at 85% -She is alert to person, to place, not t o time we discussed her severe acute respiratory failure my concerns for her developing acute respiratory distress syndrome my plan would be to continue diuresis with this morning broaden her antibiotic coverage and monitor her -I discussed with her my concern for acu te respiratory distress syndrome given her dramatically increased oxygen requirements if indeed it is acute respiratory distress syndrome she has a high risk of morbidity and mortality, if with further diuresis and possible antibiotics her respiratory ox requirements decrease this would be a positive sign however if she continues to have worsening respiratory failure increased oxygen requirement she would require intubation mechanical ventilation ? If her oxygen requirements remain elevated, my concern then would be for her developing pulmonary fibrosis with acute respiratory distress syndrome which would result in increased morbidity mortality ? Patient was agreeable to continuing all interventions continuing diuresis, I would broaden her antibody coverage as her inflammatory markers are elevated her white blood cell count is elevated, chest x-ray shows multiple infiltrates could be pulm edema versus infection ? Patient voiced understanding, all questions answered ? Spoke to patient's daughter, discussed respiratory failure fluid overload atypical pneumonia requiring IV antibiotics, concerns for acute respiratory distress syndrome, morbidity mortality associated, ICU level monitoring, she voiced understanding, all consents are Vitals/I&O/Wt Last Vital Signs Temp 97.4 F L 08/28/23 22:00 Pulse 102 H 08/29/23 13:49 Resp 22 H 08/29/23 13:40 BP 107/71 08/29/23 12:30 Pulse Ox 99 08/29/23 13:48 O2 Del Method BiPAP 08/29/23 13:40 O2 Flow Rate 3 08/28/23 08:00 FiO2 85 08/29/23 13:48 08/28/23 08/29/23 08/29/23 22:59 06:59 14:59 Intake Total 600 / 1740 350 / 2090 60 / 60 Output Total 2700 / 3425 1350 / 4775 2100 / 2100 Balance -2100 / -1685 -1000 / -2684 -2039 / -2039 Weight last 48 hrs Weight 81.374 kg Weight 82.355 kg Physical Exam 2 Const: COMMON NORMALS: no acute distress ORIENTATION/CONSCIOUSNESS: Yes awake, Yes oriented to person and Yes oriented to place; not oriented to time and not confused Resp: COMMON NORMALS: normal respiratory effort, No retractions and No use of accessory muscles OTHER: Crackles in all lung bae Cardio: COMMON NORMALS: regular rate, regular rhythm, S1 normal heart sound present and S2 normal heart sound present RATE: regular rate RHYTHM: r egular rhythm HEART SOUNDS: S1 normal heart sound present and S2 normal heart sound present GI: COMMON NORMALS: Normal to inspection, nondistended, normoactive bowel sounds present and non-tender Extremity: NARRATIVE EXTREMITY EXAM: 1+ pitting edema Neuro: SENSORIUM/ORIENTATION: Yes oriented to person, Yes oriented to place and No oriented to time Psych: COMMON NORMALS: mental status grossly normal Urinary Catheter Management: Hooper: Cath Placed During This Visit: yes Reason for Continuing Indwelling Catheter: Accurate Measurement of Urinary Output in Critically Ill Patients Urinary Catheter Date of Insertion: 08/25/23 Urinary Catheter Time of Insertion: 22:59 Sepsis: Is patient septic: Yes Focused sepsis exam performed: Yes F ocused sepsis exam: DP PT pulses diminished, mild mottling bilateral extremity, cap refill been 3 seconds, Date exam was performed: 08/29/23 Time exam was performed: 09:00 Data 08/29/23 04:11 08/29/23 04:11 A&P Assessment and plan (1) Hypotension: -Likely multifactorial - adrenal insufficiency, sepsis, acute respiratory failure -midodrine 10mg 3 times daily neck ?continue Levophed ? Wean hydrocortisone, fludrocortisone Qualifiers: Hypotension type: unspecified hypotension type Qualified Code(s): I95.9 - Hypotension, unspecified (2) Enterocolitis: CT/CT abdomen pelvis w con* [id number] IMPRESSION: New low-density wall thickening seen through much of the colon as well as portions of small bowel raising consideration of enterocolopathy of portal hypertension, enterocolitis (either infectious/inflammatory or ischemic) , or angioedema. Mild increase in ascites which remains small. Large gallstone again noted within gallbladder. Fatty liver. -Gallbladder ultrasound IMPRESSION: 1. Extremely difficult evaluation of the RIGHT upper quadrant due to body habitus. 2. Cholelithiasis without acute cholecystitis. No bile duct dilatation. 3. Cirrhotic liver with hepatic steatosis. PLAN: -ruq us -follow LFT, lipase, ggt -Currently on meropenem l ? Stool studies (3) Hypokalemia: Replace hypokalemia. Has received some magnesium. Recheck magnesium level. (4) Hypomagnesemia: Received supplementation. Recheck level. (5) Adrenal insufficiency: as above. (6) Acquired hypothyroidism: TSH 15.91. Has not been able to take her medications. Receiving stress dose steroids as above. (7) Wall motion abnormality of inferior wall of left ventricle: - History of severe coronary artery disease one-vessel disease, distal RCA treated with balloon and drug-eluting stent, back in 2019 Echocardiogram - Normal LV size with a slightly diminished ejection fraction of 50% (visual). Mild left-ventricular hypertrophy. Wall motion abnormalities as mentioned above Moderate mitral annular calcification. Normal RV size and ejection fraction There is no pericardial effusion. There are no intracardiac masses. Compared to the study from 06/27/2023, the wall motion abnormalities appear to be new Plan ? Serial EKGs, serial troponins, telemetry monitoring ? Continue aspirin, Plavix, statin -Given wall motion abnormalities, consulted cardiology (8) Acute hypoxic respiratory failure: -Acute hypoxic respiratory failure ? With development of acute respiratory distress syndrome -Secondary to fluid overload, pulmonary edema, systolic CHF neck -BNP over 34,000, chest x-ray showing pulm vascular congestion - pneumonia, given leukocytosis elevated Pro-Reilly, CRP ? Plan ? Continue BiPAP, currently on 85% FiO2 ? Fluid restrictions at 1000 cc, ? Continue albumin ? Lasix 40 mg IV 3 times daily ?monitor fluid status, monitor creatinine, -Continue fludrocortisone, ? Continue Levophed to maintain MAP greater than 65 (9) Pulmonary edema: (10) Fluid overload: (11) CHF (congestive heart failure): Qualifiers: Heart failure type: unspecified Heart failure chronicity: chronic Qualified Code(s): I50.9 - Heart failure, unspecified (12) Acute respiratory distress syndrome: (13) Sepsis: (14) Shock: - Possibly septic shock, given pneumonia could ? Component of cardiogenic shock, given wall motion abnormalities on echocardiogram Plan CAD: Plavix if able to tolerate, asa CHF: Currently not in exacerbation A-fib: Normally on Eliquis CKD: Creatinine 1.1 appears close to baseline. At risk of acute kidney injury with hyperkalemia, low oral intake. Hypotension. Reassess renal function. Electrolytes. Acid-base. GERD: PPI by IV at the moment. COPD: Not in exacerbation. Breathing treatments scheduled and as needed. History of HTN: This appears to be remote history, she is for the most part been having low blood pressures. Currently hypotensive. Smoking addiction: Encourage cessation. Nicotine replacement as needed. DM2: Accu-Cheks every 6 hours, insulin sliding scale. Guesses carb diet. Diabetic neuropathy: Hold off gabapentin for now due to hypotension. HLD: statin for now Plan for today, spoke to patient spoke to daughter, currently in acute respiratory failure with acute respiratory distress syndrome broaden antibiotic coverage to vancomycin, meropenem, increase Lasix to 40 mg IV every 8 hours, monitor urine output monitor creatinine, currently at Levophed at 8, from sepsis, from shock, spoke to nursing staff, spoke to patient's daughter spoke to patient Attestations 2 Medical Necessity Statement*: Patient requires hospitalization, for acute respiratory distress syndrome, acute hypoxic respiratory failure pneumonia, systolic CHF exacerbation, shock, Levophed Coding Level of Care Code Critical Care >/= 30 minutes Critical care time (in minutes): 45 The high probability of a clinically significant, sudden or life threatening deterioration, as referenced in this documentation, required my full and direct attention, intervention and personal management. The critical care time shown is in addition to time spent performing any reported separately billable procedures and includes the following: [x] Data and vital sign review and interpretation [x ] Patient assessment, examination and intervention [x] Medication orders and management [x] Patient/Family updates as able [x] Care Coordination and Documentation. Diagnoses Hypotension, unspecified hypotension type I95.9 Hypotension type: unspecified hypotension type Enterocolitis K52.9 Hypokalemia E87.6 Hypomagnesemia E83.42 Adrenal insufficiency E27.40 Acquired hypothyroidism E03.9 Wall motion abnormality of inferior wall of left ventricle R94.30 Acute hypoxic respiratory failure J96.01 Pulmonary edema J81.1 Fluid overload E87.70 Acute on chronic congestive heart failure, unspecified heart failure type I50.9 Heart failure type: unspecified Heart failure chronicity: chronic Acute respiratory distress syndrome J80 Sepsis A41.9 Shock R57.9
--- NOTE | 2023-08-29 14:45 | PC.OT ---
OT TREATMENT ATTEMPTED. PATIENT ON BIPAP AND SLEEPING. OTR CHECK TO BE ATTEMPTED TOMORROW.
[2023-08-29 15:12] LABS: Glucose Point of Care 163 mg/dL (70-110)
[2023-08-29] MEDS: potassium chloride ER 20 mEq Tablet 40 MEQ PO (17:07)
[2023-08-29] MEDS: gabapentin 300 mg Capsule 600 MG PO (17:08)
[2023-08-29 17:54] LABS: Immunoglobulin A 629 mg/dL (70-320)
[2023-08-29] MEDS: pantoprazole 40 mg SDV IVP (19:31)
[2023-08-29] MEDS: morphine 4 mg/mL SDV 1 mL 2 MG IVP (19:34)
[2023-08-29 20:49] LABS: Glucose Point of Care 139 mg/dL (70-110)
[2023-08-29] MEDS: atorvastatin 40 mg Tablet 20 MG PO (21:09)
[2023-08-29] MEDS: mirtazapine 30 mg Tablet PO (21:09)
[2023-08-29] MEDS: norepinephrine 4 MG/250 ML BAG 18.75 MG IV (22:05)
[2023-08-30] VITALS (80 sets, daily range): BP systolic 63–123; BP diastolic 35–82; PULSE 70–148; RESP 13–41; TEMP 36–36.9; O2SAT 85–100
[2023-08-30 01:38] LABS: CMV DNA By PCR NOT DETECTED; CMV DNA, QN PCR NOT DETECTED Log IU/mL; SOURCE blood
[2023-08-30 02:05] LABS: Glucose Point of Care 134 mg/dL (70-110)
[2023-08-30] MEDS: acetaminophen 325 mg Tablet 650 MG PO ×3 (02:08→22:46)
[2023-08-30] MEDS: cyclobenzaprine 10 mg Tablet 5 MG PO ×2 (02:08→22:46)
[2023-08-30] MEDS: midodrine 5 mg TABLET 10 MG PO ×3 (02:08→18:49)
[2023-08-30 02:24] LABS: Gliadin Ab.IgA 2.3 U/mL; Gliadin Ab.IgG 1.8 U/mL; Tissue Transglutaminase IgA Ab <1.0 U/mL; Tissue transglutaminase Ab.IgG <1.0 U/mL
[2023-08-30] MEDS: ipratropium-albuterol 3 mL Neb INHALATION ×3 (03:04→20:13)
--- NOTE | 2023-08-30 03:06 | PC.NURSE ---
Arterial Line B/P: 0115 -- 114/61 (77) 0130 -- 114/58 (74) 0145 -- 95/40 (55) Right wrist IV pulled out, new IV started to right hand and Dobutamine restarted. 0200 -- 96/44 (61) 0215 -- 97/46 (61) 0230 -- 108/48 (66) 0245 -- 119/53 (72) 0300 -- 117/50 (70)
[2023-08-30 04:22] LABS: ABG PCO2 38.5 mmHg (35-45); Arterial Blood Gas Hematocrit 30.3 % (37-47); Blood Gas Allen Test Pos; Blood Gas Operator Identificat JB; Blood Gas Sample Site Radial, right; Blood Gas Sample Type Arterial; HCO3 ABG 35.9 mmol/L (22-26); Oxygen Device BIPAP; PO2 ABG 86.7 mmHg (80.0-100.0); PO2 FiO2 Ratio Arterial Blood 0
[2023-08-30 04:32] LABS: ABG PH Result 7.58 (7.35-7.45)
[2023-08-30 04:45] LABS: Basophils % 0.1 %; Eosinophils % 0.1 %; Hematocrit 29.8 % (36-47); Lymphocytes # 2.8 10^3/uL (0.8-4.8); Lymphocytes % 17.6 %; Mean Corpuscular HGB Conc 32.6 g/dL (30-55); Mean Corpuscular Hemoglobin 32.1 pg (27-33); Mean Corpuscular Volume 98.7 fl (85-98); Mean Platelet Volume 12.6 fL (7.4-10.4); Monocytes # 0.6 10^3/uL (0.2-0.9); Monocytes % 3.8 %; Neutrophils # 12.39 10^3/uL (1.8-7.7); Neutrophils % 77.5 %; Nucleated Red Blood Cells % 0 %; Platelet Count 113 10^3/cmm (157-399); Red Blood Count 3.02 10^6/uL (3.85-5.65); Red Cell Distribution Width 16.9 % (12.1-15.1)
[2023-08-30 05:06] LABS: Alanine Aminotransferase 22 U/L (0-33); Albumin Level 3.9 g/dL (3.5-5.2); Alkaline Phosphatase 100 U/L (35-105); Aspartate Amino Transferase 48 U/L (0-32); Blood Urea Nitrogen 7 mg/dL (8-23); C Reactive Protein 137.7 mg/L (0.0-4.9); Calcium 8.3 mg/dL (8.5-10.5); Carbon Dioxide 33 mmol/L (22-29); Chloride 95 mmol/L (98-107); Creatinine Clr Calc Pharmacy 52.8804; Globulin 1.9 g/dL (1.3-4.6); Glomerular Filtration Rate 55.3 mL/min (90-130); Glucose 125 mg/dL (65-115); Osmolality Calculated 293 mOsm/kg (285-295); Phosphorus 2.2 mg/dL (2.5-4.5); Sodium 142 mmol/L (136-145); Total Protein 5.8 g/dL (6.6-8.7)
[2023-08-30 05:07] LABS: Lactate (Lactic Acid level) 2.2 mmol/L (0.5-2.2)
[2023-08-30 05:17] LABS: Procalcitonin 0.87 ng/mL (0-0.5)
[2023-08-30 05:40] LABS: NT Pro B Type Natriuretic Pept > 70000 pg/mL (0-125)
[2023-08-30] MEDS: hydrocortisone 10 mg Tablet PO (05:49)
[2023-08-30] MEDS: levothyroxine 125 mcg Tablet PO (05:49)
[2023-08-30] MEDS: folic acid 1 mg Tablet PO (05:49)
--- NOTE | 2023-08-30 07:00 | XR_ITS ---
WS: [id number] Portable AP supine chest, 08/30/2023 Clinical Data: sob Comparison: Portable chest, 08/29/2023 Findings: The diffuse patchy opacities have diminished slightly compared to yesterday. No nodules, ma sses or effusions are seen. The heart is slightly enlarged. The pulmonary vascularity is not increase d. No pneumothorax is seen. The left PICC line remains in the same position. There are monitor leads on the chest wall. Impression: 1. Slight decrease in bilateral patchy opacities. 2. No change in cardiomegaly.
[2023-08-30] MEDS: amiodarone 150 MG/100 ML PREMIX 400 MG IV (07:53)
[2023-08-30] MEDS: lidocaine 1% 5 ML in potassium chloride premix 100 ML 52.5 ML IV ×3 (07:58→18:48)
[2023-08-30] MEDS: FUROsemide 10 mg/mL SDV 4mL 40 MG IVP ×3 (08:06→23:37)
[2023-08-30] MEDS: albumin 25 G/100 ML BAG 60 G IV ×2 (08:07→19:37)
[2023-08-30] MEDS: potassium phosphate (mMol PO4) 15 MMOL in sodium chloride 0.9% (100 ml) 100 ML 42 MMOL IV (10:35)
[2023-08-30] MEDS: meropenem 1,000 MG in sodium chloride 0.9% (plus) 50 ML 100 MG IV ×3 (10:38→23:37)
[2023-08-30] MEDS: magnesium lactate 84 mg Tablet PO ×2 (10:39→22:24)
[2023-08-30] MEDS: gabapentin 300 mg Capsule 900 MG PO (10:39)
[2023-08-30] MEDS: fludrocortisone 0.1 mg Tablet 0.100000000000000006 MG PO (10:39)
[2023-08-30] MEDS: calcium carbonate 500 mg Chew Tablet 1000 MG PO (10:40)
[2023-08-30] MEDS: aspirin 81 mg EC Tablet PO (10:40)
[2023-08-30] MEDS: polyethylene glycol 3350 Pkt 17 gm PO (10:40)
[2023-08-30] MEDS: clopidogrel 75 mg Tablet PO (10:40)
[2023-08-30] MEDS: apixaban 5 mg Tablet 2.5 MG PO ×2 (10:58→20:58)
[2023-08-30] MEDS: calcitriol 0.25 mcg Capsule PO (10:58)
[2023-08-30] MEDS: vancomycin 1,500 MG/300 ML PIGGYBACK 200 MG IV (11:04)
[2023-08-30] MEDS: digoxin 250 mcg/ml INJ 2 mL IVP (11:07)
[2023-08-30] MEDS: norepinephrine 4 MG/250 ML BAG 18.75 MG IV (11:43)
[2023-08-30 11:55] LABS: Glucose Point of Care 208 mg/dL (70-110)
--- NOTE | 2023-08-30 11:56 | P.PN_ITS ---
Subjective 2 Subjective: - Patient was seen this morning, she dev eloped A-fib with RVR, heart rates in the 140s, tachypnea, tachycardia, with development of hypotension ? She was started on Levophed, given an amiodarone bolus, started on amiodarone drip, she was later examined, heart rate still in the 120s, her tachypnea has improved, blood pressures have improved with Levophed ? Patient's daughter was at bedside I did detailed discussion with patient and daughter about her acute respiratory failure likely secondary to fluid overload, I have diuresed her about 9 L yesterday, she continues to have infiltrates in her lungs I have put her on antibiotic therapy pretty broad-spectrum, will continue to diurese her as she remains fluid overloaded ? Had a honest discussion with patient and her daughter about her acute respiratory failure her O2 requirements are about 55%, and her developing A-fib with RVR there is a concern for developing further fluid overload will have to watch her urine output monitor creatinine, continue to diurese her ? My concern is for acute respiratory distress syndrome, if indeed she does have acute respiratory distress syndrome, she will have increased oxygen requirements, she is a high risk of morbidity and mortality high risk of intubation, high risk of prolonged mechanical ventilation and the need for trach need for placement to long-term care facility next ?however we will continue to monitor her as her ox requirements have decreased to 55% -Discussed risk and benefits, they voice d understanding, all questions answered, agreed to proceed ? She was reexamined heart rates remain in the 120s A-fib, MAP is greater than 65 on Levophed ox requirements are 55%, will give her 250 mcg of digoxin Vitals/I&O/Wt Last Vital Signs Temp 98.4 F 08/30/23 07:15 Pulse 92 08/30/23 11:40 Resp 41 H 08/30/23 08:15 BP 80/59 08/30/23 08:15 Pulse Ox 100 08/30/23 11:40 O2 Del Method BiPAP 08/30/23 08:15 O2 Flow Rate 3 08/28/23 08:00 FiO2 60 08/30/23 11:40 08/29/23 08/30/23 08/30/23 22:59 06:59 14:59 Intake Total 500.00 / 1010.00 150 / 1160.00 339.111 / 339.111 Output Total 3900 / 6000 3525 / 9568 Balance -3400.00 / -4990.00 -3375 / -8365.00 339.111 / 339.111 Weight last 48 hrs Weight 71.35 kg Weight 81.374 kg Physical Exam 2 Const: COMMON NORMALS: no acute distress and patient oriented x3 Resp: COMMON NORMALS: normal respiratory effort, No retractions and No use of accessory muscles AUSCULTATION: crackles and wheezes Cardio: COMMON NORMALS: S1 normal heart sound present and S2 normal heart sound present RATE: tachycardic RHYTHM: abnormal rhythm irregularly irregular HEART SOUNDS: S1 normal heart sound present and S2 normal heart sound present GI: COMMON NORMALS: Normal to inspection, nondistended, normoactive bowel sounds present and non-tender Extremity: COMMON NORMALS: no pedal edema Neuro: COMMON NORMALS: patient oriented x3 Psych: COMMON NORMALS: mental status grossly normal Urinary Catheter Management: Hooper: Cath Placed During This Visit: yes Reason for Continuing Indwelling Catheter: Accurate Measurement of Urinary Output in Critically Ill Patients Urinary Catheter Date of Insertion: 08/25/23 Urinary Catheter Time of Insertion: 22:59 Sepsis: Is patient septic: Yes Focused sepsis exam performed: Yes F ocused sepsis exam: DP PT pulses diminished, cap refill greater than 3 seconds, mild mottling bilateral extremities Date exam was performed: 08/30/23 Time exam was performed: 09:00 Data 08/30/23 04:29 08/30/23 04:29 A&P Assessment and plan (1) Hypotension: -Likely multifactorial - adrenal insufficiency, sepsis, acute respiratory failure -midodrine 10mg 3 times daily neck ?continue Levophed ? Wean hydrocortisone, fludrocortisone Qualifiers: Hypotension type: unspecified hypotension type Qualified Code(s): I95.9 - Hypotension, unspecified (2) Enterocolitis: CT/CT abdomen pelvis w con* [id number] IMPRESSION: New low-density wall thickening seen through much of the colon as well as portions of small bowel raising consideration of enterocolopathy of portal hypertension, enterocolitis (either infectious/inflammatory or ischemic) , or angioedema. Mild increase in ascites which remains small. Large gallstone again noted within gallbladder. Fatty liver. -Gallbladder ultrasound IMPRESSION: 1. Extremely difficult evaluation of the RIGHT upper quadrant due to body habitus. 2. Cholelithiasis without acute cholecystitis. No bile duct dilatation. 3. Cirrhotic liver with hepatic steatosis. PLAN: -ruq us -follow LFT, lipase, ggt -Currently on meropenem l ? Stool studies (3) Hypokalemia: Replace hypokalemia. Has received some magnesium. Recheck magnesium level. (4) Hypomagnesemia: Received supplementation. Recheck level. (5) Adrenal insufficiency: as above. (6) Acquired hypothyroidism: TSH 15.91. Has not been able to take her medications. Receiving stress dose steroids as above. (7) Wall motion abnormality of inferior wall of left ventricle: - History of severe coronary artery disease one-vessel disease, distal RCA treated with balloon and drug-eluting stent, back in 2019 Echocardiogram - Normal LV size with a slightly diminished ejection fraction of 50% (visual). Mild left-ventricular hypertrophy. Wall motion abnormalities as mentioned above Moderate mitral annular calcification. Normal RV size and ejection fraction There is no pericardial effusion. There are no intracardiac masses. Compared to the study from 06/27/2023, the wall motion abnormalities appear to be new Plan ? Serial EKGs, serial troponins, telemetry monitoring ? Continue aspirin, Plavix, statin -Given wall motion abnormalities, consulted cardiology (8) Acute hypoxic respiratory failure: -Acute hypoxic respiratory failure ? With development of acute respiratory distress syndrome -Secondary to fluid overload, pulmonary edema, systolic CHF neck -BNP over 70,000, chest x-ray showing pulm vascular congestion - pneumonia, given leukocytosis elevated Pro-Reilly, CRP -Now with A-fib with RVR ? Plan ? Continue BiPAP, currently on 55% FiO2 ? Fluid restrictions at 1000 cc, ? Continue albumin ? Lasix 40 mg IV 3 times daily -Diuresed over 9 L yesterday monitor creatinine monitor urine output monitor potassium ?monitor fluid status, monitor creatinine, -Continue fludrocortisone, ? Continue Levophed to maintain MAP greater than 65 -Continue meropenem, continue vancomycin -Follow-up blood cultures -A-fib with RVR, currently on amiodarone drip, status post amiodarone bolus, status post digoxin push 250 mcg -Continue to monitor respiratory status closely (9) Pulmonary edema: (10) Fluid overload: (11) CHF (congestive heart failure): Qualifiers: Heart failure type: unspecified Heart failure chronicity: chronic Qualified Code(s): I50.9 - Heart failure, unspecified (12) Acute respiratory distress syndrome: (13) Sepsis: (14) Shock: - Possibly septic shock, given pneumonia ? Component of cardiogenic shock, given wall motion abnormalities on echocardiogram -component of adrenal insufficiency (15) Atrial fibrillation with RVR: Plan CAD: Plavix if able to tolerate, asa CHF: Currently not in exacerbation A-fib: Normally on Eliquis CKD: Creatinine 1.1 appears close to baseline. At risk of acute kidney injury with hyperkalemia, low oral intake. Hypotension. Reassess renal function. Electrolytes. Acid-base. GERD: PPI by IV at the moment. COPD: Not in exacerbation. Breathing treatments scheduled and as needed. History of HTN: This appears to be remote history, she is for the most part been having low blood pressures. Currently hypotensive. Smoking addiction: Encourage cessation. Nicotine replacement as needed. DM2: Accu-Cheks every 6 hours, insulin sliding scale. Guesses carb diet. Diabetic neuropathy: Hold off gabapentin for now due to hypotension. HLD: statin for now - Patient was seen this morning, she developed A-fib with RVR, heart rates in the 140s, tachypnea, tachycardia, with development of hypotension ? She was started on Levophed, given an amiodarone bolus, started on amiodarone drip, she was later examined, heart rate still in the 120s, her tachypnea has improved, blood pressures have improved with Levophed ? Patient's daughter was at bedside I did detailed discussion with patient and daughter about her acute respiratory failure likely secondary to fluid overload, I have diuresed her about 9 L yesterday, she continues to have infiltrates in her lungs I have put her on antibiotic therapy pretty broad-spectrum, will continue to diurese her as she remains fluid overloaded ? Had a honest discussion with patient and her daughter about her acute respiratory failure her O2 requirements are about 55%, and her developing A-fib with RVR there is a concern for developing further fluid overload will have to watch her urine output monitor creatinine, continue to diurese her ? My concern is for acute respiratory distress syndrome, if indeed she does have acute respiratory distress syndrome, she will have increased oxygen requirements, she is a high risk of morbidity and mortality high risk of intubation, high risk of prolonged mechanical ventilation and the need for trach need for placement to long-term care facility next ?however we will continue to monitor her as her ox requirements have decreased to 55% -Discussed risk and benefits, they voiced understanding, all questions answered, agreed to proceed ? She was reexamined heart rates remain in the 120s A-fib, MAP is greater than 65 on Levophed ox requirements are 55%, will give her 250 mcg of digoxin Attestations 2 Medical Necessity Statement*: Patient requires hospitalization for acute hypoxic respiratory failure acute respiratory distress syndrome, fluid overload pulm edema CHF exacerbation pneumonia, acute respiratory distress syndrome, hypotension, shock, sepsis, pneumonia Coding Level of Care Code Critical Care >/= 30 minutes Critical care time (in minutes): 45 The high probability of a clinically significant, sudden or life threatening deterioration, as referenced in this documentation, required my full and direct attention, intervention and personal management. The critical care time shown is in addition to time spent performing any reported separately billable procedures and includes the following: [x] Data and vital sign review and interpretation [x ] Patient assessment, examination and intervention [x] Medication orders and management [x] Patient/Family updates as able [x] Care Coordination and Documentation. Diagnoses Hypotension, unspecified hypotension type I95.9 Hypotension type: unspecified hypotension type Enterocolitis K52.9 Hypokalemia E87.6 Hypomagnesemia E83.42 Adrenal insufficiency E27.40 Acquired hypothyroidism E03.9 Wall motion abnormality of inferior wall of left ventricle R94.30 Acute hypoxic respiratory failure J96.01 Pulmonary edema J81.1 Fluid overload E87.70 Acute on chronic congestive heart failure, unspecified heart failure type I50.9 Heart failure type: unspecified Heart failure chronicity: chronic Acute respiratory distress syndrome J80 Sepsis A41.9 Shock R57.9 Atrial fibrillation with RVR I48.91
--- NOTE | 2023-08-30 13:17 | PC.OT ---
Attempted OT treatment and goal check with pt sleeping soundly on BIPAP; will attempt again at later time.
[2023-08-30 17:15] LABS: Blood Urea Nitrogen 7 mg/dL (8-23); Calcium 8.6 mg/dL (8.5-10.5); Carbon Dioxide 30 mmol/L (22-29); Chloride 91 mmol/L (98-107); Glomerular Filtration Rate 55.3 mL/min (90-130); Glucose 274 mg/dL (65-115); Osmolality Calculated 298 mOsm/kg (285-295); Sodium 140 mmol/L (136-145)
[2023-08-30 17:16] LABS: Anion Gap 22.2 (5-19); Creatinine Clr Calc Pharmacy 52.8804; Potassium 3.2 mmol/L (3.5-5.1)
[2023-08-30] MEDS: potassium chloride ER 20 mEq Tablet 40 MEQ PO (18:48)
[2023-08-30] MEDS: amiodarone 200 mg Tablet 400 MG PO (18:49)
[2023-08-30] MEDS: gabapentin 300 mg Capsule 600 MG PO (18:49)
[2023-08-30 18:53] LABS: Glucose Point of Care 127 mg/dL (70-110)
--- NOTE | 2023-08-30 19:20 | PC.NURSE ---
Shift summary: Pt remained on bedrest throughout shift. She would open her eyes when spoken too . She started the morning off in afib with her rate greater than 140. Amio bolus then gtt started. Potassium replacment per IV started. She remains on Levophed gtt., the rate has been as low as 0 to 9mcg/min this shift. She has had 2 20 mEq KCL and 1 potassium phosphate replacements this shift. She has diuressed so well that her potassium has stayed on the low side. She had 3550 ml of urine output. She has incontinent of BM twice. She still has the two tiny pressure areas on her bottom, no change in the size. She has multiple skin tears and bruises on her arms. The right weeping, dressing changes done. She has drank 1.5 of her clear juice-like supplement drinks and a few bites of yogurt today. Very poor appetite.
[2023-08-30] MEDS: pantoprazole 40 mg SDV IVP (19:37)
[2023-08-30] MEDS: norepinephrine 4 MG/250 ML BAG 26.25 MG IV (19:41)
[2023-08-30] MEDS: atorvastatin 40 mg Tablet 20 MG PO (20:59)
[2023-08-30] MEDS: mirtazapine 30 mg Tablet PO (20:59)
[2023-08-30 23:37] LABS: Glucose Point of Care 154 mg/dL (70-110)
[2023-08-30] MEDS: insulin lispro 100 unit/1 mL SUBCUT (23:37)
[2023-08-31] VITALS (81 sets, daily range): BP systolic 71–133; BP diastolic 48–84; PULSE 86–146; RESP 14–33; TEMP 36.2–36.6; O2SAT 87–100
[2023-08-31] MEDS: ipratropium-albuterol 3 mL Neb INHALATION ×4 (02:30→19:59)
[2023-08-31] MEDS: norepinephrine 4 MG/250 ML BAG 45 MG IV (02:39)
[2023-08-31] MEDS: midodrine 5 mg TABLET 10 MG PO ×3 (02:43→19:50)
[2023-08-31 04:31] LABS: Basophils % 0.1 %; Eosinophils # 0.1 10^3/uL (0.0-0.8); Eosinophils % 0.4 %; Hematocrit 30.1 % (36-47); Lymphocytes # 2.8 10^3/uL (0.8-4.8); Lymphocytes % 20.1 %; Mean Corpuscular HGB Conc 32.9 g/dL (30-55); Mean Corpuscular Hemoglobin 31.6 pg (27-33); Mean Corpuscular Volume 96.2 fl (85-98); Mean Platelet Volume 13.9 fL (7.4-10.4); Monocytes # 0.4 10^3/uL (0.2-0.9); Monocytes % 3.1 %; Neutrophils # 10.55 10^3/uL (1.8-7.7); Neutrophils % 75.2 %; Nucleated Red Blood Cells % 0 %; Platelet Count 96 10^3/cmm (157-399); Red Blood Count 3.13 10^6/uL (3.85-5.65); Red Cell Distribution Width 16.9 % (12.1-15.1)
[2023-08-31 04:46] LABS: Lactate (Lactic Acid level) 2.4 mmol/L (0.5-2.2)
[2023-08-31 04:47] LABS: Alanine Aminotransferase 22 U/L (0-33); Alkaline Phosphatase 108 U/L (35-105); Anion Gap 16.1 (5-19); Aspartate Amino Transferase 51 U/L (0-32); Blood Urea Nitrogen 8 mg/dL (8-23); C Reactive Protein 128.5 mg/L (0.0-4.9); Calcium 8.5 mg/dL (8.5-10.5); Carbon Dioxide 37 mmol/L (22-29); Chloride 91 mmol/L (98-107); Creatinine Clr Calc Pharmacy 66.1005; Globulin 1.4 g/dL (1.3-4.6); Glomerular Filtration Rate 71.5 mL/min (90-130); Glucose 102 mg/dL (65-115); Magnesium 1.7 mg/dL (1.7-2.3); Osmolality Calculated 291 mOsm/kg (285-295); Phosphorus 2.1 mg/dL (2.5-4.5); Potassium 3.1 mmol/L (3.5-5.1); Sodium 141 mmol/L (136-145); Total Bilirubin 2.2 mg/dL (0.15-1.2); Total Protein 5.4 g/dL (6.6-8.7)
[2023-08-31] MEDS: lanolin oint 7 gm 1 APPLIC TOPICAL (05:01)
[2023-08-31] MEDS: levothyroxine 125 mcg Tablet PO (05:02)
[2023-08-31] MEDS: hydrocortisone 10 mg Tablet PO (05:02)
[2023-08-31] MEDS: folic acid 1 mg Tablet PO (05:02)
[2023-08-31 05:03] LABS: Procalcitonin 1.46 ng/mL (0-0.5)
[2023-08-31 05:16] LABS: NT Pro B Type Natriuretic Pept > 70000 pg/mL (0-125)
--- NOTE | 2023-08-31 05:47 | PC.NURSE ---
Addendum entered by Luda Lyons RN 08/31/23 05:49: Notified that blood pressure has now dropped to 71/56 requiring an increase in Levophed. Original Note: Patient converted back to A-fib with rate 130-150's. Notified Dr. Garcia of patients cardiac rhythm, current blood pressure, and K+ level of 3.1. 40meq K+ ordered, awaiting further orders.
[2023-08-31] MEDS: lidocaine 1% 5 ML in potassium chloride premix 100 ML 26.25 ML IV (05:53)
--- NOTE | 2023-08-31 06:04 | PC.NURSE ---
Dr. Garcia to bedside, patients chart reviewed and updated on current vital signs. New orders noted.
[2023-08-31 06:06] LABS: Glucose Point of Care 132 mg/dL (70-110)
[2023-08-31] MEDS: digoxin 250 mcg/ml INJ 2 mL 500 MCG IVP (06:09)
[2023-08-31] MEDS: norepinephrine 4 MG/250 ML BAG 52.5 MG IV (07:47)
[2023-08-31] MEDS: meropenem 1,000 MG in sodium chloride 0.9% (plus) 50 ML 100 MG IV ×2 (07:48→16:22)
[2023-08-31] MEDS: FUROsemide 10 mg/mL SDV 4mL 40 MG IVP ×2 (07:50→16:22)
[2023-08-31] MEDS: albumin 25 G/100 ML BAG 60 G IV ×2 (07:52→19:51)
[2023-08-31 08:39] LABS: ABG PCO2 40.6 mmHg (35-45); Arterial Blood Gas Hematocrit 33.9 % (37-47); Blood Gas Allen Test Pos; Blood Gas Operator Identificat CAK; Blood Gas Sample Site Radial, left; Blood Gas Sample Type Arterial; HCO3 ABG 40.1 mmol/L (22-26); Oxygen Device BIPAP; PO2 ABG 65.6 mmHg (80.0-100.0); PO2 FiO2 Ratio Arterial Blood 0
[2023-08-31] MEDS: gabapentin 300 mg Capsule 900 MG PO (09:01)
[2023-08-31] MEDS: apixaban 5 mg Tablet 2.5 MG PO (09:01)
[2023-08-31] MEDS: aspirin 81 mg EC Tablet PO (09:01)
[2023-08-31] MEDS: fludrocortisone 0.1 mg Tablet 0.100000000000000006 MG PO (09:01)
[2023-08-31] MEDS: calcium carbonate 500 mg Chew Tablet 1000 MG PO (09:01)
[2023-08-31] MEDS: clopidogrel 75 mg Tablet PO (09:02)
[2023-08-31] MEDS: amiodarone 150 MG/100 ML PREMIX 400 MG IV (09:31)
[2023-08-31] MEDS: magnesium sulfate premix 1 GM/100 ML PIGGYBACK IV (10:13)
[2023-08-31] MEDS: potassium phosphate (mEq K) 40 MEQ in sodium chloride 0.9% (100 ml) 100 ML 27.2699999999999996 MEQ IV (10:13)
[2023-08-31 11:15] LABS: Glucose Point of Care 322 mg/dL (70-110)
[2023-08-31] MEDS: insulin lispro 100 unit/1 mL SUBCUT (11:44)
[2023-08-31] MEDS: vancomycin 1,500 MG/300 ML PIGGYBACK 200 MG IV (11:44)
[2023-08-31] MEDS: cyclobenzaprine 10 mg Tablet 5 MG PO (11:45)
[2023-08-31] MEDS: magnesium lactate 84 mg Tablet PO (11:45)
[2023-08-31] MEDS: acetaminophen 325 mg Tablet 650 MG PO (11:45)
--- NOTE | 2023-08-31 12:01 | P.PN_ITS ---
Subjective 2 Subjective: Patient was seen this morning, she is currently on 60% FiO2 alert to person, to place, not to time, yesterday afternoon she converted to normal sinus rhythm after receiving 250 mcg of digoxin, but overnight she went back into A-fib with RVR heart rates in the 150s, received 500 mcg of digoxin, she seen this morning, heart rates in the 120s A-fib with RVR, hypotensive remains on 8 of Levophed, I started her back on amiodarone drip with an amiodarone bolus, she does report shortness of breath, we discussed continue diuresis and IV antibiotics, concerns for persistent hypoxia with concerns for acute respiratory distress syndrome, Vitals/I&O/Wt Last Vital Signs Temp 97.8 F 08/31/23 04:00 Pulse 112 H 08/31/23 10:59 Resp 26 H 08/31/23 07:45 BP 89/57 08/31/23 04:15 Pulse Ox 91 08/31/23 10:59 O2 Del Method BiPAP 08/31/23 07:45 O2 Flow Rate 3 08/28/23 08:00 FiO2 50 08/31/23 10:59 08/30/23 08/31/23 08/31/23 22:59 06:59 14:59 Intake Total 514.284 / 2221.834 466.500 / 2688.334 514.188 / 514.188 Output Total 1800 / 3550 2075 / 5625 Balance -1285.716 / -1328.166 -1608.500 / -2936.666 514.188 / 514.188 Weight last 48 hrs Weight 68.356 kg Weight 71.35 kg Physical Exam 2 Const: COMMON NORMALS: no acute distress ORIENTATION/CONSCIOUSNESS: Yes awake, Yes oriented to person and Yes oriented to place; not oriented to time Eye: COMMON NORMALS: Equal, round and reactive pupils present PUPIL: Yes Equal, round and reactive pupils present Resp: COMMON NORMALS: normal respiratory effort, No retractions and No use of accessory muscles OTHER: Crackles and wheezing in all lung bae Cardio: COMMON NORMALS: S1 normal heart sound present and S2 normal heart sound present RATE: tachycardic RHYTHM: abnormal rhythm irregularly irregular HEART SOUNDS: S1 normal heart sound present and S2 normal heart sound present GI: COMMON NORMALS: Normal to inspection, nondistended, normoactive bowel sounds present and non-tender Extremity: NARRATIVE EXTREMITY EXAM: 1+ pitting edema Neuro: SENSORIUM/ORIENTATION: Yes oriented to person, Yes oriented to place and No oriented to time Psych: COMMON NORMALS: mental status grossly normal Urinary Catheter Management: Hooper: Cath Placed During This Visit: yes Reason for Continuing Indwelling Catheter: Accurate Measurement of Urinary Output in Critically Ill Patients Urinary Catheter Date of Insertion: 08/25/23 Urinary Catheter Time of Insertion: 22:59 Data 08/31/23 04:10 08/31/23 04:10 Micro: Microbiology 08/25/23 18:50 Blood Culture - Final Blood NO GROWTH AFTER 5 DAYS 08/25/23 17:33 Blood Culture - Final Blood NO GROWTH AFTER 5 DAYS A&P Assessment and plan (1) Hypotension: -Likely multifactorial - adrenal insufficiency, sepsis, acute respiratory failure -midodrine 10mg 3 times daily neck ?continue Levophed ? Wean hydrocortisone, fludrocortisone Qualifiers: Hypotension type: unspecified hypotension type Qualified Code(s): I95.9 - Hypotension, unspecified (2) Enterocolitis: CT/CT abdomen pelvis w con* [id number] IMPRESSION: New low-density wall thickening seen through much of the colon as well as portions of small bowel raising consideration of enterocolopathy of portal hypertension, enterocolitis (either infectious/inflammatory or ischemic) , or angioedema. Mild increase in ascites which remains small. Large gallstone again noted within gallbladder. Fatty liver. -Gallbladder ultrasound IMPRESSION: 1. Extremely difficult evaluation of the RIGHT upper quadrant due to body habitus. 2. Cholelithiasis without acute cholecystitis. No bile duct dilatation. 3. Cirrhotic liver with hepatic steatosis. PLAN: -ruq us -follow LFT, lipase, ggt -Currently on meropenem l ? Stool studies (3) Hypokalemia: Replace hypokalemia. Has received some magnesium. Recheck magnesium level. (4) Hypomagnesemia: Received supplementation. Recheck level. (5) Adrenal insufficiency: as above. (6) Acquired hypothyroidism: TSH 15.91. Has not been able to take her medications. Receiving stress dose steroids as above. (7) Wall motion abnormality of inferior wall of left ventricle: - History of severe coronary artery disease one-vessel disease, distal RCA treated with balloon and drug-eluting stent, back in 2019 Echocardiogram - Normal LV size with a slightly diminished ejection fraction of 50% (visual). Mild left-ventricular hypertrophy. Wall motion abnormalities as mentioned above Moderate mitral annular calcification. Normal RV size and ejection fraction There is no pericardial effusion. There are no intracardiac masses. Compared to the study from 06/27/2023, the wall motion abnormalities appear to be new Plan ? Serial EKGs, serial troponins, telemetry monitoring ? Continue aspirin, Plavix, statin -Given wall motion abnormalities, consulted cardiology (8) Acute hypoxic respiratory failure: -Acute hypoxic respiratory failure ? With development of acute respiratory distress syndrome -Secondary to fluid overload, pulmonary edema, systolic CHF neck -BNP over 70,000, chest x-ray showing pulm vascular congestion - pneumonia, given leukocytosis elevated Pro-Reilly, CRP -Now with A-fib with RVR ? Plan -Currently on Levophed at 8 ? Continue BiPAP, currently on 60% FiO2 ? Fluid restrictions at 1000 cc, has diuresed over 21 L ? Continue albumin ? Lasix 40 mg IV 3 times daily -monitor creatinine monitor urine output monitor potassium ?monitor fluid status, monitor creatinine, -Continue fludrocortisone, ? Continue Levophed to maintain MAP greater than 65 -Continue meropenem, continue vancomycin -Follow-up blood cultures -A-fib with RVR, currently on amiodarone drip, status post amiodarone bolus, status post digoxin push 500mcg -Continue to monitor respiratory status closely (9) Pulmonary edema: (10) Fluid overload: (11) CHF (congestive heart failure): Qualifiers: Heart failure type: unspecified Heart failure chronicity: chronic Qualified Code(s): I50.9 - Heart failure, unspecified (12) Acute respiratory distress syndrome: (13) Sepsis: (14) Shock: - Possibly septic shock, given pneumonia ? Component of cardiogenic shock, given wall motion abnormalities on echocardiogram -component of adrenal insufficiency (15) Atrial fibrillation with RVR: Plan CAD: Plavix if able to tolerate, asa CHF: Currently not in exacerbation A-fib: Normally on Eliquis CKD: Creatinine 1.1 appears close to baseline. At risk of acute kidney injury with hyperkalemia, low oral intake. Hypotension. Reassess renal function. Electrolytes. Acid-base. GERD: PPI by IV at the moment. COPD: Not in exacerbation. Breathing treatments scheduled and as needed. History of HTN: This appears to be remote history, she is for the most part been having low blood pressures. Currently hypotensive. Smoking addiction: Encourage cessation. Nicotine replacement as needed. DM2: Accu-Cheks every 6 hours, insulin sliding scale. Guesses carb diet. Diabetic neuropathy: Hold off gabapentin for now due to hypotension. HLD: statin for now - Patient was seen this morning, she developed A-fib with RVR, heart rates in the 140s, tachypnea, tachycardia, with development of hypotension ? She was started on Levophed, given an amiodarone bolus, started on amiodarone drip, she was later examined, heart rate still in the 120s, her tachypnea has improved, blood pressures have improved with Levophed ? Patient's daughter was at bedside I did detailed discussion with patient and daughter about her acute respiratory failure likely secondary to fluid overload, I have diuresed her about 9 L yesterday, she continues to have infiltrates in her lungs I have put her on antibiotic therapy pretty broad-spectrum, will continue to diurese her as she remains fluid overloaded ? Had a honest discussion with patient and her daughter about her acute respiratory failure her O2 requirements are about 55%, and her developing A-fib with RVR there is a concern for developing further fluid overload will have to watch her urine output monitor creatinine, continue to diurese her ? My concern is for acute respiratory distress syndrome, if indeed she does have acute respiratory distress syndrome, she will have increased oxygen requirements, she is a high risk of morbidity and mortality high risk of intubation, high risk of prolonged mechanical ventilation and the need for trach need for placement to long-term care facility next ?however we will continue to monitor her as her ox requirements have decreased to 55% -Discussed risk and benefits, they voiced understanding, all questions answered, agreed to proceed ? She was reexamined heart rates remain in the 120s A-fib, MAP is greater than 65 on Levophed ox requirements are 55%, will give her 250 mcg of digoxin Attestations 2 Medical Necessity Statement*: Patient requires hospitalization, for A-fib with RVR, acute hypoxic respiratory failure acute respiratory distress syndrome BiPAP dependence shock on Levophed, 60% FiO2, systolic CHF exacerbation, concerns for pneumonia Coding Level of Care Code Critical Care >/= 30 minutes Critical care time (in minutes): 45 The high probability of a clinically significant, sudden or life threatening deterioration, as referenced in this documentation, required my full and direct attention, intervention and personal management. The critical care time shown is in addition to time spent performing any reported separately billable procedures and includes the following: [x] Data and vital sign review and interpretation [x ] Patient assessment, examination and intervention [x] Medication orders and management [x] Patient/Family updates as able [x] Care Coordination and Documentation. Diagnoses Hypotension, unspecified hypotension type I95.9 Hypotension type: unspecified hypotension type Enterocolitis K52.9 Hypokalemia E87.6 Hypomagnesemia E83.42 Adrenal insufficiency E27.40 Acquired hypothyroidism E03.9 Wall motion abnormality of inferior wall of left ventricle R94.30 Acute hypoxic respiratory failure J96.01 Pulmonary edema J81.1 Fluid overload E87.70 Acute on chronic congestive heart failure, unspecified heart failure type I50.9 Heart failure type: unspecified Heart failure chronicity: chronic Acute respiratory distress syndrome J80 Sepsis A41.9 Shock R57.9 Atrial fibrillation with RVR I48.91
[2023-08-31] MEDS: norepinephrine 4 MG/250 ML BAG 60 MG IV ×3 (12:29→20:18)
[2023-08-31 12:59] LABS: DNA AB (DS) CRITHIDIA,IFA NEGATIVE (NEGATIVE)
[2023-08-31 13:34] LABS: Anion Gap 20.7 (5-19); Blood Urea Nitrogen 8 mg/dL (8-23); Calcium 8.5 mg/dL (8.5-10.5); Carbon Dioxide 33 mmol/L (22-29); Chloride 86 mmol/L (98-107); Creatinine Clr Calc Pharmacy 57.6092; Glomerular Filtration Rate 62.5 mL/min (90-130); Glucose 339 mg/dL (65-115); Osmolality Calculated 294 mOsm/kg (285-295); Potassium 3.7 mmol/L (3.5-5.1); Sodium 136 mmol/L (136-145)
[2023-08-31 13:38] LABS: Digoxin 3.5 ng/mL (0.6-1.2)
[2023-08-31 16:35] LABS: Blood Urea Nitrogen 8 mg/dL (8-23); Calcium 8.1 mg/dL (8.5-10.5); Carbon Dioxide 32 mmol/L (22-29); Chloride 81 mmol/L (98-107); Creatinine Clr Calc Pharmacy 64.8104; Glomerular Filtration Rate 71.5 mL/min (90-130); Osmolality Calculated 286 mOsm/kg (285-295); Sodium 127 mmol/L (136-145)
[2023-08-31 17:06] LABS: Glucose 530 mg/dL (65-115)
--- NOTE | 2023-08-31 18:01 | PC.NURSE ---
Called Dr. Reece about patient's blood glucose. Critical called from lab on glucose of 530. Finger stick glucose checked and was 92, rechecked on other hand and was 98. Blood was drawn from PICC line and it resulted HI. Dr. Reece ordered stat BMP to be drawn by lab and not through PICC line. Q2H accuchecks now ordered.
[2023-08-31 18:02] LABS: Glucose Point of Care > 600 mg/dL (70-110)
[2023-08-31 18:02] LABS: Glucose Point of Care 92 mg/dL (70-110)
[2023-08-31 18:02] LABS: Glucose Point of Care 98 mg/dL (70-110)
--- NOTE | 2023-08-31 19:20 | PC.NURSE ---
Lab contacted to draw stat BMP ordered at [id number].
[2023-08-31] MEDS: pantoprazole 40 mg SDV IVP (19:51)
[2023-08-31 20:16] LABS: Glucose Point of Care 122 mg/dL (70-110)
[2023-08-31 20:38] LABS: Blood Urea Nitrogen 9 mg/dL (8-23); Carbon Dioxide 38 mmol/L (22-29); Chloride 87 mmol/L (98-107); Creatinine Clr Calc Pharmacy 57.6092; Glomerular Filtration Rate 62.5 mL/min (90-130); Glucose 118 mg/dL (65-115); Osmolality Calculated 284 mOsm/kg (285-295); Sodium 137 mmol/L (136-145)
[2023-08-31 20:39] LABS: Anion Gap 16.1 (5-19); Potassium 4.1 mmol/L (3.5-5.1)
[2023-08-31 22:22] LABS: Glucose Point of Care 149 mg/dL (70-110)
[2023-09-01] VITALS (82 sets, daily range): BP systolic 70–141; BP diastolic 51–117; PULSE 81–133; RESP 16–39; TEMP 36.6–37.1; O2SAT 80–99; BMI 25.2
[2023-09-01] MEDS: norepinephrine 4 MG/250 ML BAG 60 MG IV ×3 (00:19→09:57)
[2023-09-01 00:20] LABS: Glucose Point of Care 144 mg/dL (70-110)
[2023-09-01] MEDS: FUROsemide 10 mg/mL SDV 4mL 40 MG IVP ×2 (01:32→09:40)
[2023-09-01] MEDS: meropenem 1,000 MG in sodium chloride 0.9% (plus) 50 ML 100 MG IV ×4 (01:32→23:46)
[2023-09-01 01:44] LABS: Anion Gap 18.3 (5-19); Blood Urea Nitrogen 11 mg/dL (8-23); Carbon Dioxide 37 mmol/L (22-29); Chloride 88 mmol/L (98-107); Creatinine Clr Calc Pharmacy 57.6092; Glomerular Filtration Rate 62.5 mL/min (90-130); Glucose 106 mg/dL (65-115); Osmolality Calculated 290 mOsm/kg (285-295); Potassium 3.3 mmol/L (3.5-5.1); Sodium 140 mmol/L (136-145)
[2023-09-01] MEDS: cyclobenzaprine 10 mg Tablet 5 MG PO ×2 (03:20→21:31)
[2023-09-01] MEDS: ipratropium-albuterol 3 mL Neb INHALATION ×4 (03:27→20:30)
[2023-09-01 04:53] LABS: ABG PCO2 43.4 mmHg (35-45); Arterial Blood Gas Hematocrit 32.5 % (37-47); Base Excess ABG 17.9 mmol/L (-2.0-2.0); Blood Gas Allen Test Pos; Blood Gas Sample Site Radial, left; Blood Gas Sample Type Arterial; HCO3 ABG 41.5 mmol/L (22-26); Oxygen Device BIPAP; PO2 ABG 54.3 mmHg (80.0-100.0); PO2 FiO2 Ratio Arterial Blood 0
[2023-09-01 05:04] LABS: Glucose Point of Care 132 mg/dL (70-110)
[2023-09-01 05:21] LABS: Basophils % 0.1 %; Eosinophils # 0.1 10^3/uL (0.0-0.8); Eosinophils % 0.5 %; Hematocrit 31.1 % (36-47); Lymphocytes % 25.2 %; Mean Corpuscular HGB Conc 32.8 g/dL (30-55); Mean Corpuscular Hemoglobin 31.6 pg (27-33); Mean Corpuscular Volume 96.3 fl (85-98); Monocytes # 0.4 10^3/uL (0.2-0.9); Neutrophils # 8.32 10^3/uL (1.8-7.7); Neutrophils % 70.4 %; Nucleated Red Blood Cells % 0 %; Platelet Count 73 10^3/cmm (157-399); Red Blood Count 3.23 10^6/uL (3.85-5.65); Red Cell Distribution Width 17.1 % (12.1-15.1); White Blood Count 11.81 10^3/uL (3.29-11.43)
[2023-09-01 05:27] LABS: INR 2.77 (0.8-1.2)
[2023-09-01 05:29] LABS: Lactate (Lactic Acid level) 2.4 mmol/L (0.5-2.2)
[2023-09-01 05:42] LABS: Digoxin 1.6 ng/mL (0.6-1.2)
[2023-09-01 05:49] LABS: Alanine Aminotransferase 19 U/L (0-33); Albumin Level 4.3 g/dL (3.5-5.2); Alkaline Phosphatase 121 U/L (35-105); Aspartate Amino Transferase 57 U/L (0-32); Blood Urea Nitrogen 11 mg/dL (8-23); Carbon Dioxide 37 mmol/L (22-29); Chloride 88 mmol/L (98-107); Creatinine Clr Calc Pharmacy 57.6092; Globulin 1.6 g/dL (1.3-4.6); Glomerular Filtration Rate 62.5 mL/min (90-130); Glucose 118 mg/dL (65-115); Osmolality Calculated 296 mOsm/kg (285-295); Phosphorus 3.2 mg/dL (2.5-4.5); Sodium 143 mmol/L (136-145); Total Bilirubin 2.8 mg/dL (0.15-1.2); Total Protein 5.9 g/dL (6.6-8.7)
[2023-09-01 05:53] LABS: Anion Gap 21.2 (5-19); Potassium 3.2 mmol/L (3.5-5.1)
[2023-09-01 06:01] LABS: Procalcitonin 1.47 ng/mL (0-0.5)
[2023-09-01 06:13] LABS: Creatine Phosphokinase 19 U/L (26-192)
[2023-09-01 06:26] LABS: NT Pro B Type Natriuretic Pept > 70000 pg/mL (0-125)
--- NOTE | 2023-09-01 07:01 | PC.NURSE ---
Patient had 2 episodes of choking after takig a po med with water. Patient has been refusing to take pills with the exception of verapamil. She does not tolerate being off bipap for more than 1-2 minutes and her oxygen levels quickly.
[2023-09-01] MEDS: albumin 25 G/100 ML BAG 60 G IV ×2 (08:05→20:00)
--- NOTE | 2023-09-01 08:26 | P.PN_ITS ---
Subjective 2 Subjective: Patient has become critically ill since I saw her the other day. The day after I saw her she had increased respiratory distress and was thought to be in congestive heart failure with evidence of pulmonary vascular redistribution by chest x-ray and elevated BNP. She became hypotensive and was transferred to the intensive care unit. There is a concern for chronic adrenal insufficiency. Her potassium continues to be low. Today it is 3.2. She developed respiratory insufficiency and has been placed on a BiPAP mask. 2 days ago she developed atrial fibrilla tion with a rapid ventricular response. She was also hypotensive and started on norepinephrine. The hospitalist started her on amiodarone and gave her some digoxin. She has been off and on the amiodarone but it has been discontinued now. Yesterday I spoke to the hospitalist over the phone regarding the difficulty in controlling the atrial fibrillation. I expressed my concern about digoxin toxicity with amiodarone on board. A digoxin level yesterday was 3.5. This morning it is down to 1.6. Both the digoxin and the amiodarone have been discontinued. I suggested some verapamil low-dose short acting which has been instituted 40 mg p.o. every 6 hours. The nurse tells me that she had been in and out of atrial fibrillation overnight. As I see her this morning she is in sinus rhythm with a rate of 90. She is complaining of severe leg pain. She is also still short of breath and requiring BiPAP mask. Her norepinephrine dose is now 16 mcg/min. The nurses state that it is difficult to give her her medication because she is having hard time swallowing them. Otherwise, she remains critically ill. Her BNP is above 70,000. She is chronically in a metabolic alkalosis with serum bicarbonate about 37 and a pH on arterial blood gas of 7.59. Her potassium is 3.2. Her creatinine is remains stable. Chest x-ray from the seventh showed mild congestive heart failure. Chest x-ray from the eighth showed slight improvement in the pulmonary vascular redistribution. There has been a significant diuresis over the last 2 or 3 days. This is the source of the metabolic alkalosis. Surprisingly, her creatinine has remained stable. She is still struggling to breathe however. Vitals/I&O/Wt Last Vital Signs Temp 97.2 F L 08/31/23 22:00 Pulse 97 03/10/24 06:00 Resp 28 H 09/01/23 04:15 BP 98/59 09/01/23 04:15 Pulse Ox 93 09/01/23 04:15 O2 Del Method BiPAP 09/01/23 03:28 O2 Flow Rate 3 08/28/23 08:00 FiO2 50 09/01/23 04:00 08/31/23 09/01/23 09/01/23 21:59 06:59 14:59 Intake Total Output Total Balance Weight last 48 hrs Weight 150 lb 11.2 oz Physical Exam 2 Narrative: GENERAL: In general she is struggling to breathe on BiPAP HEENT: Exam within normal limits. NECK: Supple without jugular vein distention. The carotid upstroke is normal without bruits. BACK: Exam normal. LUNGS: Clear. HEART: Regular rate and rhythm. ABDOMEN: Benign without organomegaly or tenderness. EXTREMITIES: No edema. NEUROLOGIC: Exam normal. SKIN: Multiple bruises and excoriations about the skin of the upper extremities Urinary Catheter Management: Hooper: Cath Placed During This Visit: yes Reason for Continuing Indwelling Catheter: Accurate Measurement of Urinary Output in Critically Ill Patients Urinary Catheter Date of Insertion: 08/25/23 Urinary Catheter Time of Insertion: 22:59 Data 09/01/23 05:00 09/01/23 05:00 A&P Assessment and plan (1) Myocardial infarction: (2) HTN (hypertension): Qualifiers: Hypertension type: primary hypertension Qualified Code(s): I10 - Essential (primary) hypertension (3) S/P angioplasty with stent: (4) Hyperlipidemia: Qualifiers: Hyperlipidemia type: unspecified Qualified Code(s): E78.5 - Hyperlipidemia, unspecified (5) ASHD (arteriosclerotic heart disease): (6) CHF (congestive heart failure): Qualifiers: Heart failure type: unspecified Heart failure chronicity: chronic Qualified Code(s): I50.9 - Heart failure, unspecified (7) Coronary artery disease: (8) Nicotine dependence, cigarettes, with other nicotine-induced disorders: (9) Shock: (10) Atrial fibrillation with RVR: (11) Pulmonary hypertension: (12) Diabetes 1.5, managed as type 2: (13) Adrenal insufficiency: (14) Obesity: Qualifiers: Obesity type: due to excess calories Obesity classification: adult class 2 (BMI 35 - 39.9) Body mass index: BMI 37.0-37.9 (15) CKD (chronic kidney disease): Qualifiers: Chronic kidney disease stage: stage 3 (moderate) Chronic kidney disease stage 3 subtype: stage 3a (GFR 45-59) Qualified Code(s): N18.31 - Chronic kidney disease, stage 3a (16) Hypokalemia: (17) COPD (chronic obstructive pulmonary disease): (18) Chronic respiratory failure with hypoxia: (19) Acute respiratory distress syndrome: (20) Pulmonary edema: (21) Acute hypoxic respiratory failure: (22) EDNA (obstructive sleep apnea): (23) Metabolic alkalosis: Plan I do not think the amiodarone is going to be beneficial. I would not add back any more digoxin for obvious reasons. The verapamil at least is holding things for the most part. I would continue that. Otherwise, she remains critically ill with multiple issues. Attestations 2 Medical Necessity Statement*: ICU care for multiple critical care issues and High Time for a total of 50 minutes, includes reviewing past or interval history, examining/interviewing patient, counseling patient/family/other support, updating patient/family/other support, discussing plan of care with staff, communicating with other healthcare providers and documenting encounter Diagnoses Myocardial infarction I21.9 Primary hypertension I10 Hypertension type: primary hypertension S/P angioplasty with stent Z95.820 Hyperlipidemia, unspecified hyperlipidemia type E78.5 Hyperlipidemia type: unspecified ASHD (arteriosclerotic heart disease) I25.10 Acute on chronic congestive heart failure, unspecified heart failure type I50.9 Heart failure type: unspecified Heart failure chronicity: chronic Coronary artery disease I25.10 Nicotine dependence, cigarettes, with other nicotine-induced disorders F17.218 Shock R57.9 Atrial fibrillation with RVR I48.91 Pulmonary hypertension I27.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 Obesity E66.9 Obesity type: due to excess calories Obesity classification: adult class 2 (BMI 35 - 39.9) Body mass index: BMI 37.0-37.9 Stage 3a chronic kidney disease N18.31 Chronic kidney disease stage: stage 3 (moderate) Chronic kidney disease stage 3 subtype: stage 3a (GFR 45-59) Hypokalemia E87.6 Chronic obstructive pulmonary disease with acute exacerbation J44.9 Chronic respiratory failure with hypoxia J96.11 Acute respiratory distress syndrome J80 Pulmonary edema J81.1 Acute hypoxic respiratory failure J96.01 EDNA (obstructive sleep apnea) G47.33 Metabolic alkalosis E87.3
--- NOTE | 2023-09-01 08:31 | XRR_ITS ---
PROCEDURE INFORMATION: Exam: XR Chest Exam date and time: 09/01/2023 9:20 AM Age: 67 years old Clinical indication: Dyspnea and shortness of breath; Additional info: SOB TECHNIQUE: Imaging protocol: Radiologic exam of the chest. Views: 1 view. COMPARISON: CR XR chest 1V portable [id number] 08/30/2023 7:18 AM FINDINGS: Tubes, catheters and devices: Left upper extremity PICC is in stable position. Lungs: Decrease in the diffuse pulmonary patchy opacities. Pleural spaces: Unremarkable. No pleural effusion. No pneumothorax. Heart/Mediastinum: Unremarkable. No cardiomegaly. Bones/joints: Moderate degenerative disease of the left acromioclavicular joint and bilateral glenohumeral joints. XR/XR chest 1V portable [id number] IMPRESSION: Decrease in the diffuse patchy pulmonary opacities.
[2023-09-01 08:52] LABS: Glucose Point of Care 152 mg/dL (70-110)
[2023-09-01] MEDS: calcium carbonate 500 mg Chew Tablet 1000 MG PO (09:36)
[2023-09-01] MEDS: aspirin 81 mg EC Tablet PO (09:36)
[2023-09-01] MEDS: clopidogrel 75 mg Tablet PO (09:36)
[2023-09-01] MEDS: apixaban 5 mg Tablet 2.5 MG PO ×2 (09:37→21:31)
[2023-09-01] MEDS: fludrocortisone 0.1 mg Tablet 0.100000000000000006 MG PO (09:37)
[2023-09-01] MEDS: polyethylene glycol 3350 Pkt 17 gm PO (09:37)
[2023-09-01] MEDS: gabapentin 300 mg Capsule 900 MG PO (09:37)
[2023-09-01] MEDS: ondansetron 2 mg/ML SDV 2 mL 4 MG IVP (09:57)
[2023-09-01 10:20] LABS: Vancomycin Trough 29.9 ug/mL (10-15)
[2023-09-01 10:23] LABS: Cortisol Random 41.77 ug/dL (2.47-19.5)
[2023-09-01 11:03] LABS: Glucose Point of Care 152 mg/dL (70-110)
[2023-09-01] MEDS: magnesium lactate 84 mg Tablet PO (11:03)
[2023-09-01] MEDS: midodrine 5 mg TABLET 10 MG PO ×2 (11:03→19:01)
[2023-09-01] MEDS: insulin lispro 100 unit/1 mL SUBCUT ×2 (11:51→17:27)
[2023-09-01] MEDS: hydrocortisone 10 mg Tablet 5 MG PO (11:51)
[2023-09-01] MEDS: metoclopramide 5 mg/mL SDV 2 mL IVP ×2 (12:13→17:39)
--- NOTE | 2023-09-01 12:37 | P.PN_ITS ---
Subjective 2 Subjective: Patient was seen this morning, she is alert to person, to place, not to time she reports complaining of shortness of breath, she tells me that her mouth is dry, she wants to try to eat something, she has generalized weakness on examination, is on 16 of Levophed, heart rates are A-fib but heart rates are controlled in the 90s to 100, afebrile overnight, maps around 65, had a detailed discussion about her respiratory failure, concerns for developing acute respiratory distress syndrome, as shock likely distributive shock and a combination of her adrenal insufficiency Vitals/I&O/Wt Last Vital Signs Temp 97.8 F 09/01/23 08:30 Pulse 102 H 09/01/23 12:15 Resp 23 H 09/01/23 12:15 BP 83/55 09/01/23 12:15 Pulse Ox 89 L 09/01/23 12:15 O2 Del Method Heated High Flow 09/01/23 12:15 O2 Flow Rate 50 09/01/23 11:10 FiO2 60 09/01/23 11:10 08/31/23 09/01/23 09/01/23 21:59 06:59 14:59 Intake Total 419 / 419 Output Total 100 / 100 Balance 319 / 319 Weight last 48 hrs Weight 66.791 kg Weight 68.356 kg Physical Exam 2 Const: COMMON NORMALS: no acute distress ORIENTATION/CONSCIOUSNESS: Yes awake, Yes oriented to person and Yes oriented to place; not oriented to time Resp: COMMON NORMALS: normal respiratory effort, No retractions and No use of accessory muscles AUSCULTATION: crackles and wheezes Cardio: COMMON NORMALS: regular rate, S1 normal heart sound present and S2 normal heart sound present RATE: regular rate RHYTHM: abnormal rhythm H EART SOUNDS: S1 normal heart sound present and S2 normal heart sound present GI: COMMON NORMALS: Normal to inspection, nondistended, normoactive bowel sounds present and non-tender Extremity: COMMON NORMALS: no pedal edema Neuro: SENSORIUM/ORIENTATION: Yes oriented to person, Yes oriented to place and No oriented to time Psych: COMMON NORMALS: mental status grossly normal Urinary Catheter Management: Hooper: Cath Placed During This Visit: yes Reason for Continuing Indwelling Catheter: Accurate Measurement of Urinary Output in Critically Ill Patients Urinary Catheter Date of Insertion: 08/25/23 Urinary Catheter Time of Insertion: 22:59 Data 09/01/23 05:00 09/01/23 05:00 A&P Assessment and plan (1) Hypotension: -Likely multifactorial - adrenal insufficiency, sepsis, acute respiratory failure -midodrine 10mg 3 times daily neck ?continue Levophed ? Wean hydrocortisone, fludrocortisone Qualifiers: Hypotension type: unspecified hypotension type Qualified Code(s): I95.9 - Hypotension, unspecified (2) Enterocolitis: CT/CT abdomen pelvis w con* [id number] IMPRESSION: New low-density wall thickening seen through much of the colon as well as portions of small bowel raising consideration of enterocolopathy of portal hypertension, enterocolitis (either infectious/inflammatory or ischemic) , or angioedema. Mild increase in ascites which remains small. Large gallstone again noted within gallbladder. Fatty liver. -Gallbladder ultrasound IMPRESSION: 1. Extremely difficult evaluation of the RIGHT upper quadrant due to body habitus. 2. Cholelithiasis without acute cholecystitis. No bile duct dilatation. 3. Cirrhotic liver with hepatic steatosis. PLAN: -ruq us -follow LFT, lipase, ggt -Currently on meropenem ? Stool studies (3) Hypokalemia: Replace hypokalemia. Has received some magnesium. Recheck magnesium level. (4) Hypomagnesemia: Received supplementation. Recheck level. (5) Adrenal insufficiency: as above. (6) Acquired hypothyroidism: TSH 15.91. Has not been able to take her medications. Receiving stress dose steroids as above. (7) Wall motion abnormality of inferior wall of left ventricle: - History of severe coronary artery disease one-vessel disease, distal RCA treated with balloon and drug-eluting stent, back in 2019 Echocardiogram - Normal LV size with a slightly diminished ejection fraction of 50% (visual). Mild left-ventricular hypertrophy. Wall motion abnormalities as mentioned above Moderate mitral annular calcification. Normal RV size and ejection fraction There is no pericardial effusion. There are no intracardiac masses. Compared to the study from 06/27/2023, the wall motion abnormalities appear to be new Plan ? Serial EKGs, serial troponins, telemetry monitoring ? Continue aspirin, Plavix, statin -Given wall motion abnormalities, consulted cardiology (8) Acute hypoxic respiratory failure: -Acute hypoxic respiratory failure ? With development of acute respiratory distress syndrome -Secondary to fluid overload, pulmonary edema, systolic CHF neck -BNP over 70,000, chest x-ray showing pulm vascular congestion - pneumonia, given leukocytosis elevated Pro-Reilly, CRP -Now with A-fib with RVR ? Chest x-ray shows improving pulmonary vascular congestion ? Plan -Currently on Levophed at 16 ? Continue BiPAP, currently on 60% FiO2 ? Fluid restrictions at 1000 cc, has diuresed over 8 L negative ? Continue albumin ?Today will daily dose, 1 dose IV Lasix today, will consider another dose in the evening based on clinical progress -monitor creatinine monitor urine output monitor potassium ?monitor fluid status, monitor creatinine, -Continue fludrocortisone, ? Continue Levophed to maintain MAP greater than 65 -Continue meropenem, continue vancomycin -Follow-up blood cultures -Continue verapamil -Continue to monitor respiratory status closely -Full code -Eliquis for DVT prophylaxis -Status is critical, prognosis is guarded (9) Pulmonary edema: (10) Fluid overload: (11) CHF (congestive heart failure): Qualifiers: Heart failure type: unspecified Heart failure chronicity: chronic Qualified Code(s): I50.9 - Heart failure, unspecified (12) Acute respiratory distress syndrome: (13) Sepsis: (14) Shock: - Possibly septic shock, given pneumonia ? Component of cardiogenic shock, given wall motion abnormalities on echocardiogram -component of adrenal insufficiency (15) Atrial fibrillation with RVR: (16) Digoxin toxicity: Digoxin levels over 3, digoxin was stopped amiodarone was stopped continue to monitor monitor potassium Plan CAD: Plavix if able to tolerate, asa CHF: Currently not in exacerbation A-fib: Normally on Eliquis CKD: Creatinine 1.1 appears close to baseline. At risk of acute kidney injury with hyperkalemia, low oral intake. Hypotension. Reassess renal function. Electrolytes. Acid-base. GERD: PPI by IV at the moment. COPD: Not in exacerbation. Breathing treatments scheduled and as needed. History of HTN: This appears to be remote history, she is for the most part been having low blood pressures. Currently hypotensive. Smoking addiction: Encourage cessation. Nicotine replacement as needed. DM2: Accu-Cheks every 6 hours, insulin sliding scale. Guesses carb diet. Diabetic neuropathy: Hold off gabapentin for now due to hypotension. HLD: statin for now -Plan for today transition off BiPAP to heated high flow, continue verapamil, continue IV antibiotics, will continue to diurese, continue to monitor clinically, prognosis is guarded, status is critical he is on 16 of Levophed we will attempt to wean down Attestations 2 Medical Necessity Statement*: Patient requires hospitalization for acute respiratory failure, shock requiring Levophed requiring BiPAP, A-fib Coding Level of Care Code Critical Care >/= 30 minutes Critical care time (in minutes): 45 The high probability of a clinically significant, sudden or life threatening deterioration, as referenced in this documentation, required my full and direct attention, intervention and personal management. The critical care time shown is in addition to time spent performing any reported separately billable procedures and includes the following: [x] Data and vital sign review and interpretation [x ] Patient assessment, examination and intervention [x] Medication orders and management [x] Patient/Family updates as able [x] Care Coordination and Documentation. Diagnoses Hypotension, unspecified hypotension type I95.9 Hypotension type: unspecified hypotension type Enterocolitis K52.9 Hypokalemia E87.6 Hypomagnesemia E83.42 Adrenal insufficiency E27.40 Acquired hypothyroidism E03.9 Wall motion abnormality of inferior wall of left ventricle R94.30 Acute hypoxic respiratory failure J96.01 Pulmonary edema J81.1 Fluid overload E87.70 Acute on chronic congestive heart failure, unspecified heart failure type I50.9 Heart failure type: unspecified Heart failure chronicity: chronic Acute respiratory distress syndrome J80 Sepsis A41.9 Shock R57.9 Atrial fibrillation with RVR I48.91 Digoxin toxicity T46.0X1A
[2023-09-01] MEDS: norepinephrine 4 MG/250 ML BAG 67.5 MG IV (13:51)
[2023-09-01 14:22] LABS: Glucose Point of Care 149 mg/dL (70-110)
[2023-09-01 15:05] LABS: ABG PCO2 42.3 mmHg (35-45); Alveolar-Arterial Oxygen Gradi 42.3 mmHg (5-10); Arterial Blood Gas Hematocrit 30.5 % (37-47); Base Excess ABG 17.7 mmol/L (-2.0-2.0); Blood Gas Allen Test Pos; Blood Gas Operator Identificat CAK; Blood Gas Sample Site Radial, left; Blood Gas Sample Type Arterial; Carboxyhemoglobin 1.1 %THgb (0.4-20.1); HCO3 ABG 41.1 mmol/L (22-26); HGB O2 Sat 87.8 % (95-100); Ionized Calcium Level - ABG 1.1 mmol/L (1.1-1.4); Methemoglobin 0.5 % (0.4-1.5); Oxygen Device HAG; Oxygen Saturation ABG 89.2; PO2 ABG 53.1 mmHg (80.0-100.0); PO2 FiO2 Ratio Arterial Blood 0; Potassium Level - ABG 2.7 mmol/L (3.5-5.0)
[2023-09-01 17:24] LABS: Glucose Point of Care 179 mg/dL (70-110)
--- NOTE | 2023-09-01 17:46 | PC.NURSE ---
Patient off Bipap to HHF today, See charted vitals for oxygen saturation,lab for ABG, HR into 130's a-fib on monitor. Nausea with PO intake, vomited once in AM, Patient frequently moaning and calling out in room, when assessed for pain patient would report back pain 12 out of 10 , refused medications for pain management, frequent turning and positioning to relieve pain. Thick sputum when encouraged to cough. Optifoam applied to stage two pressure injury on buttock. No bowel movements this shift thus far. Patients daughter, Evelia, at bedside states that patient had been choking when eating and taking PO meds at home, and sometimes with fluids as well.
[2023-09-01] MEDS: norepinephrine 8 MG in dextrose 5 % 500 ML 60.9600000000000009 MG IV (18:05)
[2023-09-01] MEDS: pantoprazole 40 mg SDV IVP (20:00)
[2023-09-01 20:05] LABS: Glucose Point of Care 154 mg/dL (70-110)
[2023-09-01] MEDS: mirtazapine 30 mg Tablet PO (21:25)
[2023-09-01] MEDS: acetaminophen 325 mg Tablet 650 MG PO (21:32)
[2023-09-01 23:53] LABS: Glucose Point of Care 138 mg/dL (70-110)
[2023-09-02] VITALS (98 sets, daily range): BP systolic 82–121; BP diastolic 51–81; PULSE 66–114; RESP 11–42; TEMP 36.4; O2SAT 68–100
--- NOTE | 2023-09-02 01:11 | PC.NURSE ---
Patient's O2 sat dropped to 60%. Patient placed back on bipap. [employer] notified.
[2023-09-02] MEDS: ipratropium-albuterol 3 mL Neb INHALATION ×4 (01:21→19:52)
[2023-09-02] MEDS: morphine 4 mg/mL SDV 1 mL 1 MG IVP ×2 (01:29→20:40)
[2023-09-02] MEDS: norepinephrine 8 MG in dextrose 5 % 500 ML 60.9600000000000009 MG IV (02:02)
[2023-09-02] MEDS: midodrine 5 mg TABLET 10 MG PO ×3 (03:54→20:38)
[2023-09-02 03:58] LABS: Basophils % 0.1 %; Eosinophils % 0.2 %; Hematocrit 25.7 % (36-47); Lymphocytes # 3.4 10^3/uL (0.8-4.8); Lymphocytes % 35.3 %; Mean Corpuscular HGB Conc 32.7 g/dL (30-55); Mean Corpuscular Hemoglobin 31.8 pg (27-33); Mean Corpuscular Volume 97.3 fl (85-98); Monocytes # 0.4 10^3/uL (0.2-0.9); Monocytes % 4.5 %; Neutrophils # 5.62 10^3/uL (1.8-7.7); Neutrophils % 59.4 %; Nucleated Red Blood Cells % 0 %; Platelet Count 55 10^3/cmm (157-399); Red Blood Count 2.64 10^6/uL (3.85-5.65); Red Cell Distribution Width 16.6 % (12.1-15.1); White Blood Count 9.48 10^3/uL (3.29-11.43)
[2023-09-02 04:12] LABS: INR 2.25 (0.8-1.2)
[2023-09-02 04:17] LABS: Lactate (Lactic Acid level) 2.6 mmol/L (0.5-2.2)
[2023-09-02 04:20] LABS: Digoxin 1.3 ng/mL (0.6-1.2)
[2023-09-02 04:26] LABS: Alanine Aminotransferase 16 U/L (0-33); Albumin Level 4.5 g/dL (3.5-5.2); Alkaline Phosphatase 102 U/L (35-105); Aspartate Amino Transferase 54 U/L (0-32); Blood Urea Nitrogen 15 mg/dL (8-23); C Reactive Protein 76.2 mg/L (0.0-4.9); Calcium 9.3 mg/dL (8.5-10.5); Carbon Dioxide 39 mmol/L (22-29); Chloride 84 mmol/L (98-107); Creatinine Clr Calc Pharmacy 57.0098; Globulin 1.5 g/dL (1.3-4.6); Glomerular Filtration Rate 62.5 mL/min (90-130); Glucose 110 mg/dL (65-115); Osmolality Calculated 283 mOsm/kg (285-295); Phosphorus 2.9 mg/dL (2.5-4.5); Sodium 136 mmol/L (136-145); Total Bilirubin 3.6 mg/dL (0.15-1.2)
[2023-09-02 04:33] LABS: Anion Gap 15.8 (5-19)
[2023-09-02 04:34] LABS: Potassium 2.8 mmol/L (3.5-5.1)
[2023-09-02 04:50] LABS: ABG PCO2 52.5 mmHg (35-45); ABG PH Result 7.51 (7.35-7.45); Arterial Blood Gas Hematocrit 30.1 % (37-47); Base Excess ABG 16.8 mmol/L (-2.0-2.0); Blood Gas Sample Type Arterial; HCO3 ABG 41.8 mmol/L (22-26); PO2 ABG 56.1 mmHg (80.0-100.0)
[2023-09-02 04:58] LABS: Blood Gas Sample Site Brachial, right; Oxygen Device BIPAP; PO2 FiO2 Ratio Arterial Blood 0
[2023-09-02 05:14] LABS: NT Pro B Type Natriuretic Pept > 70000 pg/mL (0-125)
[2023-09-02 05:30] LABS: Creatine Phosphokinase 38 U/L (26-192)
[2023-09-02 05:36] LABS: Procalcitonin 1.02 ng/mL (0-0.5)
[2023-09-02] MEDS: levothyroxine 125 mcg Tablet PO (06:33)
[2023-09-02] MEDS: hydrocortisone 10 mg Tablet PO (06:33)
[2023-09-02] MEDS: folic acid 1 mg Tablet PO (06:33)
[2023-09-02 06:40] LABS: Glucose Point of Care 125 mg/dL (70-110)
--- NOTE | 2023-09-02 08:47 | US_ITS ---
WS: [id number] ULTRASOUND ABDOMEN LIMITED CLINICAL INFORMATION: liver COMPARISON: 08/26/2023 FINDINGS: Technically difficult study due to bowel gas. Liver Size: Normal. Craniocaudal length: 13.7 cm. Echogenicity: Coarse Surface nodularity: None. Mass (size and location): None. Bile ducts Intrahepatic ducts: Normal. Common bile duct diameter: 0.3 cm. Gallbladder Large dense shadowing laminated gallbladder calculus Gallstones: Present Gallbladder sludge: None. Gallbladder wall thickening: None. Pericholecystic fluid: None. Sonographic Martin sign: Absent. Pancreas Not well visualized Right kidney: Normal. Hydronephrosis: None. Size: 9.9 cm x 4.7 cm x 5.1 cm. Abdominal aorta and IVC Visualized portions are normal. Ascites: None. IMPRESSION: 1. Diffuse fatty infiltration of the liver. 2. Large shadowing gallbladder calculus. No gallbladder wall thickening or pericholecystic fluid. 3. Normal common bile duct. 4. No hydronephrosis in the RIGHT kidney.
--- NOTE | 2023-09-02 08:47 | XRR_ITS ---
PROCEDURE INFORMATION: Exam: XR Chest Exam date and time: 09/02/2023 8:55 AM Age: 67 years old Clinical indication: Shortness of breath; Additional info: Resp failure TECHNIQUE: Imaging protocol: Radiologic exam of the chest. Views: 1 view. COMPARISON: CR (CHEST, ) 09/01/2023 9:20 AM FINDINGS: Tubes, catheters and devices: Unchanged left arm PICC terminating in the SVC. Lungs: Unchanged subtle, diffuse bilateral pulmonary abnormalities. Otherwise, unremarkable. Pleural spaces: Unremarkable. No pleural effusion. No pneumothorax. Heart/Mediastinum: Unremarkable. No cardiomegaly. Diaphragm: Unchanged mild elevation of the right hemidiaphragm. Bones/joints: Unchanged mild scoliosis with mild multilevel spondylosis. XR/XR chest 1V portable [id number] IMPRESSION: 1. Unchanged subtle, diffuse bilateral pulmonary abnormalities. 2. Additional details as above. Unchanged.
--- NOTE | 2023-09-02 09:09 | P.PN_ITS ---
Subjective 2 Subjective: Peri is feeling a little better today. She is less short of breath. She was on a nasal cannula when I went in the room. She is awake and alert and able to have a conversation. She still has bilateral leg pain that she describes as muscle spasms. She does not have an appetite. She remains relatively hypoxic. On 50% FiO2 delivered by BiPAP mask her arterial blood gas reveals a pO2 of 56, pCO2 of 52 and a pH of 7.5. She is still requiring 16 mcg/min of norepinephrine. She has been diuresed only over 20 L over the last several days. She therefore developed a metabolic alkalosis. Her potassium is low 2.8 and her serum bicarbonate is 39. Her chest x-ray however shows decrease in the bilateral pulmonary infiltrates. Her creatinine is 0.9 but her glomerular filtration rate is 62. Despite all this her BNP is still greater than 70,000. Her digoxin level has come down to 1.3. Her hemoglobin is down to 8.4 and her platelet count is down to 55,000. She remains on low-dose aspirin, Eliquis 2.5 mg twice a day and Plavix. Fortunately, her heart rate has been below 100 and her rhythm has been sinus. She is still on short acting verapamil 40 mg every 6 hours. Vitals/I&O/Wt Last Vital Signs Temp 97.6 F 09/02/23 00:00 Pulse 78 09/02/23 05:12 Resp 23 H 09/02/23 04:00 BP 107/70 09/02/23 04:00 Pulse Ox 93 09/02/23 05:12 O2 Del Method BiPAP 09/02/23 01:21 O2 Flow Rate 50 09/01/23 21:00 FiO2 50 09/02/23 05:12 09/01/23 09/02/23 09/02/23 22:59 06:59 14:59 Intake Total 310 / 1164.125 604.632 / 1768.757 Output Total 1200 / 1300 600 / 1900 Balance -890 / -135.875 4.632 / -131.243 Weight last 48 hrs Weight 147 lb 4 oz Physical Exam 2 Narrative: GENERAL: In general she looks improved today and feels a little better HEENT: Exam within normal limits. NECK: Supple without jugular vein distention. The carotid upstroke is normal without bruits. BACK: Exam normal. LUNGS: Clear. HEART: Regular rate and rhythm. ABDOMEN: Benign without organomegaly or tenderness. EXTREMITIES: No edema. NEUROLOGIC: Exam normal. SKIN: Unremarkable. Urinary Catheter Management: Hooper: Cath Placed During This Visit: yes Reason for Continuing Indwelling Catheter: Accurate Measurement of Urinary Output in Critically Ill Patients Urinary Catheter Date of Insertion: 08/25/23 Urinary Catheter Time of Insertion: 22:59 Data 09/02/23 03:20 09/02/23 03:20 A&P Assessment and plan (1) Thrombocytopenia: (2) Myocardial infarction: (3) HTN (hypertension): Qualifiers: Hypertension type: primary hypertension Qualified Code(s): I10 - Essential (primary) hypertension (4) S/P angioplasty with stent: (5) Hyperlipidemia: Qualifiers: Hyperlipidemia type: unspecified Qualified Code(s): E78.5 - Hyperlipidemia, unspecified (6) ASHD (arteriosclerotic heart disease): (7) CHF (congestive heart failure): Qualifiers: Heart failure type: unspecified Heart failure chronicity: chronic Qualified Code(s): I50.9 - Heart failure, unspecified (8) Nicotine dependence, cigarettes, with other nicotine-induced disorders: (9) Hypotension: Qualifiers: Hypotension type: unspecified hypotension type Qualified Code(s): I95.9 - Hypotension, unspecified (10) Atrial fibrillation with RVR: (11) Shock: (12) Pulmonary hypertension: (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 I will continue the verapamil as currently prescribed. The digoxin level has come down to close to normal range. Hopefully we can wean the norepinephrine today. Attestations 2 Medical Necessity Statement*: Continued hospitalization for management of multiple serious medical problems Coding Level of Care Code Acute Code for [facility] Diagnoses Thrombocytopenia D69.6 Myocardial infarction I21.9 Primary hypertension I10 Hypertension type: primary hypertension S/P angioplasty with stent Z95.820 Hyperlipidemia, unspecified hyperlipidemia type E78.5 Hyperlipidemia type: unspecified ASHD (arteriosclerotic heart disease) I25.10 Acute on chronic congestive heart failure, unspecified heart failure type I50.9 Heart failure type: unspecified Heart failure chronicity: chronic Nicotine dependence, cigarettes, with other nicotine-induced disorders F17.218 Hypotension, unspecified hypotension type I95.9 Hypotension type: unspecified hypotension type Atrial fibrillation with RVR I48.91 Shock R57.9 Pulmonary hypertension I27.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
[2023-09-02] MEDS: albumin 25 G/100 ML BAG 60 G IV ×2 (09:47→20:42)
[2023-09-02] MEDS: meropenem 1,000 MG in sodium chloride 0.9% (plus) 50 ML 100 MG IV ×2 (09:50→17:41)
[2023-09-02] MEDS: lidocaine 1% 5 ML in potassium chloride premix 100 ML 26.25 ML IV ×2 (09:51→13:49)
[2023-09-02] MEDS: linezolid premix 600 MG/300 ML PREMIX 300 MG IV ×2 (09:55→20:43)
[2023-09-02] MEDS: clopidogrel 75 mg Tablet PO (10:01)
[2023-09-02] MEDS: aspirin 81 mg EC Tablet PO (10:01)
[2023-09-02] MEDS: gabapentin 300 mg Capsule 900 MG PO (10:01)
[2023-09-02] MEDS: apixaban 5 mg Tablet 2.5 MG PO ×2 (10:02→20:40)
[2023-09-02] MEDS: fludrocortisone 0.1 mg Tablet 0.100000000000000006 MG PO (10:02)
[2023-09-02 10:39] LABS: Gamma Glutamyl Transferase 76 U/L (5-36); Lipase 5 U/L (13-60)
[2023-09-02] MEDS: norepinephrine 8 MG in dextrose 5 % 500 ML 45.7199999999999989 MG IV (10:40)
[2023-09-02 10:41] LABS: Total Bilirubin 3.6 mg/dL (0.15-1.2)
--- NOTE | 2023-09-02 11:46 | PC.OT ---
ATTEMPTED IN AM; HOLD PER NURSING REQUEST DUE TO RESPIRATORY STATUS
[2023-09-02 12:21] LABS: Hepatitis A Antibody IgM Non-Reactive (Nonreactive); Hepatitis B Core IgM Non-Reactive (Nonreactive); Hepatitis B Surface Antigen Non-Reactive (Nonreactive); Hepatitis C Virus Antibody Non-Reactive (Nonreactive)
--- NOTE | 2023-09-02 12:35 | PM.PN ---
Subjective Subjective: Patient was seen this morning, her family members at bedside currently she is on heated high flow, I did detailed discussion about her hospitalization, for high oxygen requirements likely acute respiratory distress syndrome, I diuresed her over 7 L negative, concern for persistent high oxygen requirements, which will possibly require placement to long-term care facility such as [facility] in [place], however patient wants to see how she does, potentially considering correction placement if her ox requirement improved, she does report generalized weakness, fatigue but she feels better this morning she is alert to person, to place, to time she follows all commands, family members at bedside, discussed morbidity and mortality associate with acute respiratory distress syndrome, fluid overload, she understands that she wants to continue all medical interventions, will plan on today having PT OT evaluate her, speech therapy eval, Vitals/I&O/Wt Last Vital Signs Temp 97.6 F 09/02/23 00:00 Pulse 84 09/02/23 11:36 Resp 25 H 09/02/23 09:22 BP 107/70 09/02/23 04:00 Pulse Ox 92 09/02/23 11:36 O2 Del Method Heated High Flow 09/02/23 09:09 O2 Flow Rate 60 09/02/23 09:22 FiO2 50 09/02/23 11:36 09/01/23 09/02/23 09/02/23 22:59 06:59 14:59 Intake Total 410 / 1264.125 654.632 / 1918.757 622.135 / 622.135 Output Total 1200 / 1300 600 / 1900 Balance -790 / -35.875 54.632 / 18.757 622.135 / 622.135 Weight last 48 hrs Weight 66.791 kg Physical Exam Const: COMMON NORMALS: no acute distress and patient oriented x3 Resp: COMMON NORMALS: normal respiratory effort, No retractions and No use of accessory muscles AUSCULTATION: wheezes Cardio: COMMON NORMALS: regular rate, regular rhythm, S1 normal heart sound present and S2 normal heart sound present RATE: regular rate RHYTHM: regular rhythm HEART SOUNDS: S1 normal heart sound present and S2 normal heart sound present GI: COMMON NORMALS: Normal to inspection, nondistended, normoactive bowel sounds present and non-tender Extremity: COMMON NORMALS: no pedal edema Neuro: COMMON NORMALS: patient oriented x3 Psych: COMMON NORMALS: mental status grossly normal Urinary Catheter Management: Hooper: Cath Placed During This Visit: yes Reason for Continuing Indwelling Catheter: Accurate Measurement of Urinary Output in Critically Ill Patients Urinary Catheter Date of Insertion: 08/25/23 Urinary Catheter Time of Insertion: 22:59 Data 09/02/23 03:20 09/02/23 03:20 A&P Assessment and plan (1) Hypotension: -Likely multifactorial - adrenal insufficiency, sepsis, acute respiratory failure -midodrine 10mg 3 times daily neck ?continue Levophed ? Wean hydrocortisone, fludrocortisone Qualifiers: Hypotension type: unspecified hypotension type Qualified Code(s): I95.9 - Hypotension, unspecified (2) Enterocolitis: CT/CT abdomen pelvis w con* [id number] IMPRESSION: New low-density wall thickening seen through much of the colon as well as portions of small bowel raising consideration of enterocolopathy of portal hypertension, enterocolitis (either infectious/inflammatory or ischemic) , or angioedema. Mild increase in ascites which remains small. Large gallstone again noted within gallbladder. Fatty liver. -Gallbladder ultrasound IMPRESSION: 1. Extremely difficult evaluation of the RIGHT upper quadrant due to body habitus. 2. Cholelithiasis without acute cholecystitis. No bile duct dilatation. 3. Cirrhotic liver with hepatic steatosis. PLAN: -ruq us -follow LFT, lipase, ggt -Currently on meropenem ? Stool studies within normal limits (3) Hypokalemia: Replace hypokalemia. Has received some magnesium. Recheck magnesium level. (4) Hypomagnesemia: Received supplementation. Recheck level. (5) Adrenal insufficiency: as above. (6) Acquired hypothyroidism: TSH 15.91. Has not been able to take her medications. Receiving stress dose steroids as above. (7) Wall motion abnormality of inferior wall of left ventricle: - History of severe coronary artery disease one-vessel disease, distal RCA treated with balloon and drug-eluting stent, back in 2019 Echocardiogram - Normal LV size with a slightly diminished ejection fraction of 50% (visual). Mild left-ventricular hypertrophy. Wall motion abnormalities as mentioned above Moderate mitral annular calcification. Normal RV size and ejection fraction There is no pericardial effusion. There are no intracardiac masses. Compared to the study from 06/27/2023, the wall motion abnormalities appear to be new Plan ? Serial EKGs, serial troponins, telemetry monitoring ? Aspirin, Plavix on hold -Given wall motion abnormalities, consulted cardiology (8) Acute hypoxic respiratory failure: -Acute hypoxic respiratory failure ? With development of acute respiratory distress syndrome -Secondary to fluid overload, pulmonary edema, systolic CHF neck -BNP over 70,000, chest x-ray showing pulm vascular congestion - pneumonia, given leukocytosis elevated Pro-Reilly, CRP -Now with A-fib with RVR ? Chest x-ray shows improving pulmonary vascular congestion ? Plan -Currently on Levophed at 16 ? Continue BiPAP, currently on 60% FiO2 ? Fluid restrictions at 1000 cc, has diuresed over 8 L negative ? Continue albumin ?Today will daily dose, 1 dose IV Lasix in the evening, -monitor creatinine monitor urine output monitor potassium ?monitor fluid status, monitor creatinine, -Continue fludrocortisone, ? Continue Levophed to maintain MAP greater than 65 -Continue meropenem, continue vancomycin -Follow-up blood cultures -Continue verapamil -Continue to monitor respiratory status closely -Full code -Eliquis for DVT prophylaxis -Status is critical, prognosis is guarded (9) Pulmonary edema: (10) Fluid overload: (11) CHF (congestive heart failure): Qualifiers: Heart failure type: unspecified Heart failure chronicity: chronic Qualified Code(s): I50.9 - Heart failure, unspecified (12) Acute respiratory distress syndrome: (13) Sepsis: (14) Shock: - Possibly septic shock, given pneumonia ? Component of cardiogenic shock, given wall motion abnormalities on echocardiogram -component of adrenal insufficiency (15) Atrial fibrillation with RVR: (16) Digoxin toxicity: Digoxin levels over 3, digoxin was stopped amiodarone was stopped continue to monitor monitor potassium Plan CAD: Plavix if able to tolerate, asa CHF: Currently not in exacerbation A-fib: Normally on Eliquis CKD: Creatinine 1.1 appears close to baseline. At risk of acute kidney injury with hyperkalemia, low oral intake. Hypotension. Reassess renal function. Electrolytes. Acid-base. GERD: PPI by IV at the moment. COPD: Not in exacerbation. Breathing treatments scheduled and as needed. History of HTN: This appears to be remote history, she is for the most part been having low blood pressures. Currently hypotensive. Smoking addiction: Encourage cessation. Nicotine replacement as needed. DM2: Accu-Cheks every 6 hours, insulin sliding scale. Guesses carb diet. Diabetic neuropathy: Hold off gabapentin for now due to hypotension. HLD: statin for now -Patient requires hospitalization currently on heated high flow for acute respiratory distress syndrome, fluid overload, pneumonia, receiving IV antibiotics, vancomycin was stopped due to vancomycin induced toxicity, antibiotics, continue meropenem, will replace potassium is 2.9, will diurese in the evening time with Lasix, continue verapamil, continue Levophed at 16 will wean as tolerated Attestations Medical Necessity Statement*: Patient requires hospitalization for acute respiratory failure, shock, atrial fibrillation, fluid overload, spoke to patient, currently on heated high flow, currently on vasopressors and 16 of Levophed spoke to nursing staff, spoke to patient's family, status is stable, prognosis guarded Coding Level of Care Code Critical Care >/= 30 minutes Critical care time (in minutes): 45 The high probability of a clinically significant, sudden or life threatening deterioration, as referenced in this documentation, required my full and direct attention, intervention and personal management. The critical care time shown is in addition to time spent performing any reported separately billable procedures and includes the following: [x] Data and vital sign review and interpretation [x] Patient assessment, examination and intervention [x] Medication orders and management [x] Patient/Family updates as able [x] Care Coordination and Documentation. Diagnoses Hypotension, unspecified hypotension type I95.9 Hypotension type: unspecified hypotension type Enterocolitis K52.9 Hypokalemia E87.6 Hypomagnesemia E83.42 Adrenal insufficiency E27.40 Acquired hypothyroidism E03.9 Wall motion abnormality of inferior wall of left ventricle R94.30 Acute hypoxic respiratory failure J96.01 Pulmonary edema J81.1 Fluid overload E87.70 Acute on chronic congestive heart failure, unspecified heart failure type I50.9 Heart failure type: unspecified Heart failure chronicity: chronic Acute respiratory distress syndrome J80 Sepsis A41.9 Shock R57.9 Atrial fibrillation with RVR I48.91 Digoxin toxicity T46.0X1A
--- NOTE | 2023-09-02 13:11 | PC.SOCIAL ---
IMM Update pg 2 of IMM updated and reviewed w/ patients son who is @ bedside. Copy provided and copy dated, initialed and placed in chart.
[2023-09-02 13:33] LABS: Glucose Point of Care 119 mg/dL (70-110)
[2023-09-02] MEDS: calcitriol 0.25 mcg Capsule PO (13:47)
[2023-09-02] MEDS: magnesium lactate 84 mg Tablet PO (13:47)
[2023-09-02] MEDS: hydrocortisone 10 mg Tablet 5 MG PO (13:49)
--- NOTE | 2023-09-02 16:24 | PC.NURSE ---
Pt refusing to take po medications at this time stating that she can't breathe and wants to continue to wear the bipap mask. Will try again later with next round of po medications.
[2023-09-02] MEDS: FUROsemide 10 mg/mL SDV 4mL 40 MG IVP (17:42)
[2023-09-02 17:54] LABS: Glucose Point of Care 161 mg/dL (70-110)
[2023-09-02] MEDS: potassium chloride ER 20 mEq Tablet PO (19:25)
--- NOTE | 2023-09-02 19:31 | PC.NURSE ---
At time of shift change, levophed drip noted to be at 15 mL/hr. this was documented in MAR to reflect this at time of shift change.
[2023-09-02] MEDS: pantoprazole 40 mg SDV IVP (20:33)
[2023-09-02] MEDS: atorvastatin 40 mg Tablet 20 MG PO (20:38)
[2023-09-02] MEDS: cyclobenzaprine 10 mg Tablet 5 MG PO (20:39)
[2023-09-02] MEDS: mirtazapine 30 mg Tablet PO (20:39)
[2023-09-02 21:44] LABS: Glucose Point of Care 188 mg/dL (70-110)
[2023-09-02 23:16] LABS: Glucose Point of Care 109 mg/dL (70-110)
[2023-09-03] VITALS (92 sets, daily range): BP systolic 75–118; BP diastolic 51–76; PULSE 70–93; RESP 8–41; TEMP 35.9; O2SAT 64–100; BMI 25.3
[2023-09-03] MEDS: meropenem 1,000 MG in sodium chloride 0.9% (plus) 50 ML 100 MG IV ×3 (00:14→17:30)
[2023-09-03 00:18] LABS: Glucose Point of Care 96 mg/dL (70-110)
[2023-09-03] MEDS: magnesium lactate 84 mg Tablet PO ×2 (01:23→14:11)
--- NOTE | 2023-09-03 01:33 | PC.NURSE ---
RN into room at 0115. pt requesting to be taken off bipap and put back on hi flow. pt placed on hi flow.
[2023-09-03] MEDS: ipratropium-albuterol 3 mL Neb INHALATION ×4 (02:50→20:02)
[2023-09-03 02:58] LABS: Glucose Point of Care 88 mg/dL (70-110)
--- NOTE | 2023-09-03 03:44 | PC.NURSE ---
pt given bed bath, linen change. upon bathing it is noted that there are 2 skin tears in RAC, nonbleeding. optifoam applied to this region. 2 skin flaps noted.
[2023-09-03] MEDS: midodrine 5 mg TABLET 10 MG PO ×3 (03:50→17:38)
[2023-09-03] MEDS: morphine 4 mg/mL SDV 1 mL 1 MG IVP ×2 (03:52→09:30)
[2023-09-03 04:13] LABS: Glucose Point of Care 95 mg/dL (70-110)
[2023-09-03 04:53] LABS: Basophils % 0.1 %; Eosinophils % 0.1 %; Hematocrit 24.4 % (36-47); Lymphocytes % 29.7 %; Mean Corpuscular HGB Conc 31.6 g/dL (30-55); Mean Corpuscular Hemoglobin 31.2 pg (27-33); Mean Corpuscular Volume 98.8 fl (85-98); Monocytes # 0.4 10^3/uL (0.2-0.9); Monocytes % 5.8 %; Neutrophils # 4.31 10^3/uL (1.8-7.7); Neutrophils % 63.7 %; Nucleated Red Blood Cells % 0 %; Platelet Count 43 10^3/cmm (157-399); Red Blood Count 2.47 10^6/uL (3.85-5.65); Red Cell Distribution Width 15.7 % (12.1-15.1); White Blood Count 6.77 10^3/uL (3.29-11.43)
[2023-09-03 05:05] LABS: INR 2.71 (0.8-1.2)
--- NOTE | 2023-09-03 05:05 | PC.NURSE ---
PICC Line dressing changed, dated. caps changed and new orange caps applied.
[2023-09-03 05:12] LABS: Lactate (Lactic Acid level) 1.5 mmol/L (0.5-2.2)
[2023-09-03 05:16] LABS: Alanine Aminotransferase 14 U/L (0-33); Albumin Level 4.5 g/dL (3.5-5.2); Alkaline Phosphatase 89 U/L (35-105); Anion Gap 12.3 (5-19); Aspartate Amino Transferase 43 U/L (0-32); Blood Urea Nitrogen 20 mg/dL (8-23); C Reactive Protein 38.8 mg/L (0.0-4.9); Calcium 9.2 mg/dL (8.5-10.5); Carbon Dioxide 40 mmol/L (22-29); Chloride 88 mmol/L (98-107); Globulin 1.3 g/dL (1.3-4.6); Glomerular Filtration Rate 83.5 mL/min (90-130); Glucose 89 mg/dL (65-115); Magnesium 2.1 mg/dL (1.7-2.3); Osmolality Calculated 286 mOsm/kg (285-295); Phosphorus 1.9 mg/dL (2.5-4.5); Potassium 3.3 mmol/L (3.5-5.1); Sodium 137 mmol/L (136-145); Total Bilirubin 3.9 mg/dL (0.15-1.2); Total Protein 5.8 g/dL (6.6-8.7)
[2023-09-03 05:19] LABS: Digoxin 1.1 ng/mL (0.6-1.2)
[2023-09-03 05:28] LABS: Procalcitonin 0.73 ng/mL (0-0.5)
[2023-09-03 05:41] LABS: Creatine Phosphokinase 25 U/L (26-192)
[2023-09-03] MEDS: folic acid 1 mg Tablet PO (05:47)
[2023-09-03] MEDS: levothyroxine 125 mcg Tablet PO (05:47)
[2023-09-03] MEDS: hydrocortisone 10 mg Tablet PO (05:48)
[2023-09-03 05:49] LABS: Glucose Point of Care 86 mg/dL (70-110)
[2023-09-03 05:50] LABS: NT Pro B Type Natriuretic Pept > 70000 pg/mL (0-125)
--- NOTE | 2023-09-03 08:03 | P.PN_ITS ---
Subjective 2 Subjective: Kiel is about the same this morning. She was fast asleep when I walked in the room and I did not awaken her. She was lying flat on nasal CPAP. Her heart rates have been below 100 and her rhythm still in sinus. She remains on the short acting verapamil 40 mg every 6 hours. The norepinephrine has been weaned down to 1 mcg/min. Midodrine has been added. Her platelet count is down to 43,000. Her potassium is up to 3.3. Her glomerular filtration rate is up to 83. Her CO2 has climbed slightly to 40 but her creatinine remains 0.7. Her BNP remains above 70,000. Vitals/I&O/Wt Last Vital Signs Temp 96.7 F L 09/03/23 03:40 Pulse 74 09/03/23 06:41 Resp 18 09/03/23 03:55 BP 106/65 09/03/23 03:55 Pulse Ox 92 09/03/23 03:55 O2 Del Method Heated High Flow 09/03/23 03:55 O2 Flow Rate 50 09/03/23 02:51 FiO2 75 09/03/23 02:51 09/02/23 09/03/23 09/03/23 22:59 06:59 14:59 Intake Total 1020.505 / 1986.765 456.924 / 2443.689 Output Total 1950 / 4220 200 / 4420 Balance -929.495 / -2233.235 256.924 / -1976.311 Weight last 48 hrs Weight 147 lb 11.355 oz Weight 147 lb 4 oz Physical Exam 2 Narrative: GENERAL: General she appears comfortable lying flat asleep HEENT: Exam within normal limits. NECK: Supple without jugular vein distention. The carotid upstroke is normal without bruits. BACK: Exam normal. LUNGS: Clear. HEART: Regular rate and rhythm. ABDOMEN: Benign without organomegaly or tenderness. EXTREMITIES: No edema. NEUROLOGIC: Exam normal. SKIN: Unremarkable. Urinary Catheter Management: Hooper: Cath Placed During This Visit: yes Reason for Continuing Indwelling Catheter: Accurate Measurement of Urinary Output in Critically Ill Patients Urinary Catheter Date of Insertion: 08/25/23 Urinary Catheter Time of Insertion: 22:59 Data 09/03/23 04:40 09/03/23 04:40 A&P Assessment and plan (1) Myocardial infarction: (2) HTN (hypertension): Qualifiers: Hypertension type: primary hypertension Qualified Code(s): I10 - Essential (primary) hypertension (3) S/P angioplasty with stent: (4) Hyperlipidemia: Qualifiers: Hyperlipidemia type: unspecified Qualified Code(s): E78.5 - Hyperlipidemia, unspecified (5) ASHD (arteriosclerotic heart disease): (6) CHF (congestive heart failure): Qualifiers: Heart failure type: unspecified Heart failure chronicity: chronic Qualified Code(s): I50.9 - Heart failure, unspecified (7) Nicotine dependence, cigarettes, with other nicotine-induced disorders: (8) Hypotension: Qualifiers: Hypotension type: unspecified hypotension type Qualified Code(s): I95.9 - Hypotension, unspecified (9) Shock: (10) Atrial fibrillation with RVR: (11) Thrombocytopenia: (12) Pulmonary hypertension: (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, managed as type 2: (14) Adrenal insufficiency: (15) Obesity: Qualifiers: Obesity type: due to excess calories Obesity classification: adult class 2 (BMI 35 - 39.9) Body mass index: BMI 37.0-37.9 (16) Severe protein-calorie malnutrition: (17) Enterocolitis: (18) CKD (chronic kidney disease): Qualifiers: Chronic kidney disease stage: stage 3 (moderate) Chronic kidney disease stage 3 subtype: stage 3a (GFR 45-59) Qualified Code(s): N18.31 - Chronic kidney disease, stage 3a (19) Hypokalemia: (20) Hypomagnesemia: (21) Blood loss anemia: (22) Diabetic neuropathy: Qualifiers: Diabetes mellitus type: type 2 Diabetes mellitus complication detail: d iabetic polyneuropathy Qualified Code(s): E11.42 - Type 2 diabetes mellitus with diabetic polyneuropathy (23) COPD (chronic obstructive pulmonary disease): (24) Chronic respiratory failure with hypoxia: (25) EDNA (obstructive sleep apnea): Plan I put the aspirin and Plavix on hold yesterday due to the thrombocytopenia. I would suggest taking all of the heparin out of anything she receives. She is still critically ill but stable. She is warm, mentating and making good urine. I made no changes today. Attestations 2 Medical Necessity Statement*: Continued hospitalization for management of multiple serious medical problems and Moderate Time for a total of 40 minutes, includes reviewing past or interval history, examining/interviewing patient, counseling patient/family/other support, updating patient/family/other support, discussing plan of care with staff, communicating with other healthcare providers and documenting encounter Diagnoses Myocardial infarction I21.9 Primary hypertension I10 Hypertension type: primary hypertension S/P angioplasty with stent Z95.820 Hyperlipidemia, unspecified hyperlipidemia type E78.5 Hyperlipidemia type: unspecified ASHD (arteriosclerotic heart disease) I25.10 Acute on chronic congestive heart failure, unspecified heart failure type I50.9 Heart failure type: unspecified Heart failure chronicity: chronic Nicotine dependence, cigarettes, with other nicotine-induced disorders F17.218 Hypotension, unspecified hypotension type I95.9 Hypotension type: unspecified hypotension type Shock R57.9 Atrial fibrillation with RVR I48.91 Thrombocytopenia D69.6 Pulmonary hypertension I27.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 Obesity E66.9 Obesity type: due to excess calories Obesity classification: adult class 2 (BMI 35 - 39.9) Body mass index: BMI 37.0-37.9 Severe protein-calorie malnutrition E43 Enterocolitis K52.9 Stage 3a chronic kidney disease N18.31 Chronic kidney disease stage: stage 3 (moderate) Chronic kidney disease stage 3 subtype: stage 3a (GFR 45-59) Hypokalemia E87.6 Hypomagnesemia E83.42 Blood loss anemia D50.0 Diabetic polyneuropathy associated with type 2 diabetes mellitus E11.42 Diabetes mellitus type: type 2 Diabetes mellitus complication detail: diabetic polyneuropathy Chronic obstructive pulmonary disease with acute exacerbation J44.9 Chronic respiratory failure with hypoxia J96.11 EDNA (obstructive sleep apnea) G47.33
[2023-09-03] MEDS: gabapentin 300 mg Capsule 900 MG PO (09:31)
[2023-09-03] MEDS: fludrocortisone 0.1 mg Tablet 0.100000000000000006 MG PO (09:32)
[2023-09-03] MEDS: apixaban 5 mg Tablet 2.5 MG PO (09:32)
[2023-09-03] MEDS: linezolid premix 600 MG/300 ML PREMIX 300 MG IV ×2 (09:33→19:38)
[2023-09-03] MEDS: potassium phosphate (mEq K) 40 MEQ in sodium chloride 0.9% (100 ml) 100 ML 27.2699999999999996 MEQ IV (09:49)
[2023-09-03 13:20] LABS: Glucose Point of Care 107 mg/dL (70-110)
[2023-09-03] MEDS: HYDROcodone-acetaminophen 5-325 mg Tablet 1 TAB PO (14:09)
[2023-09-03] MEDS: cyclobenzaprine 10 mg Tablet 5 MG PO (14:11)
[2023-09-03] MEDS: hydrocortisone 10 mg Tablet 5 MG PO (14:11)
--- NOTE | 2023-09-03 14:25 | P.PN_ITS ---
Subjective 2 Subjective: Patient was seen this morning, currently on 40% FiO2 on heated high flow, she is also on 1 of Levophed, she tells me that her appetite is improving but she feels tired, no fevers overnight, no cough we discussed her medical interventions she wants to continue all medical interventions for now we discussed potentially moving her to [place] depending on her oxygen requirements, she tells me that she really wants to try to go to a assisted Vitals/I&O/Wt Last Vital Signs Temp 96.7 F L 09/03/23 03:40 Pulse 78 09/03/23 13:20 Resp 17 09/03/23 13:20 BP 85/53 09/03/23 12:00 Pulse Ox 96 09/03/23 13:20 O2 Del Method Heated High Flow 09/03/23 13:15 O2 Flow Rate 50 09/03/23 13:20 FiO2 65 09/03/23 13:20 09/02/23 09/03/23 09/03/23 22:59 06:59 14:59 Intake Total 1020.505 / 1986.765 456.924 / 2443.339 845.8093 / 578.5106 Output Total 1950 / 4220 200 / 4420 Balance -929.495 / -2233.235 256.924 / -1976.157 297.6881 / 578.5106 Weight last 48 hrs Weight 67 kg Physical Exam 2 Const: COMMON NORMALS: no acute distress and patient oriented x3 Resp: COMMON NORMALS: normal respiratory effort, No retractions and No use of accessory muscles AUSCULTATION: wheezes Cardio: COMMON NORMALS: regular rate, regular rhythm, S1 normal heart sound present and S2 normal heart sound present RATE: regular rate RHYTHM: r egular rhythm HEART SOUNDS: S1 normal heart sound present and S2 normal heart sound present GI: COMMON NORMALS: Normal to inspection, nondistended, normoactive bowel sounds present and non-tender Extremity: COMMON NORMALS: no pedal edema Neuro: COMMON NORMALS: patient oriented x3 Psych: COMMON NORMALS: mental status grossly normal Urinary Catheter Management: Hooper: Cath Placed During This Visit: yes Reason for Continuing Indwelling Catheter: Accurate Measurement of Urinary Output in Critically Ill Patients Urinary Catheter Date of Insertion: 08/25/23 Urinary Catheter Time of Insertion: 22:59 Data 09/03/23 04:40 09/03/23 04:40 A&P Assessment and plan (1) Hypotension: -Likely multifactorial - adrenal insufficiency, sepsis, acute respiratory failure -midodrine 10mg 3 times daily neck ? Wean Levophed ? Wean hydrocortisone, fludrocortisone Qualifiers: Hypotension type: unspecified hypotension type Qualified Code(s): I95.9 - Hypotension, unspecified (2) Enterocolitis: CT/CT abdomen pelvis w con* [id number] IMPRESSION: New low-density wall thickening seen through much of the colon as well as portions of small bowel raising consideration of enterocolopathy of portal hypertension, enterocolitis (either infectious/inflammatory or ischemic) , or angioedema. Mild increase in ascites which remains small. Large gallstone again noted within gallbladder. Fatty liver. -Gallbladder ultrasound IMPRESSION: 1. Extremely difficult evaluation of the RIGHT upper quadrant due to body habitus. 2. Cholelithiasis without acute cholecystitis. No bile duct dilatation. 3. Cirrhotic liver with hepatic steatosis. PLAN: -ruq us -follow LFT, lipase, ggt (3) Hypokalemia: Replace hypokalemia. Has received some magnesium. Recheck magnesium level. (4) Hypomagnesemia: Received supplementation. Recheck level. (5) Adrenal insufficiency: as above. (6) Acquired hypothyroidism: TSH 15.91. Has not been able to take her medications. Receiving stress dose steroids as above. (7) Wall motion abnormality of inferior wall of left ventricle: - History of severe coronary artery disease one-vessel disease, distal RCA treated with balloon and drug-eluting stent, back in 2019 Echocardiogram - Normal LV size with a slightly diminished ejection fraction of 50% (visual). Mild left-ventricular hypertrophy. Wall motion abnormalities as mentioned above Moderate mitral annular calcification. Normal RV size and ejection fraction There is no pericardial effusion. There are no intracardiac masses. Compared to the study from 06/27/2023, the wall motion abnormalities appear to be new Plan ? Serial EKGs, serial troponins, telemetry monitoring ? Aspirin, Plavix on hold -Given wall motion abnormalities, consulted cardiology (8) Acute hypoxic respiratory failure: -Acute hypoxic respiratory failure ? With development of acute respiratory distress syndrome -Secondary to fluid overload, pulmonary edema, systolic CHF neck -BNP over 70,000, chest x-ray showing pulm vascular congestion - pneumonia, given leukocytosis elevated Pro-Reilly, CRP -Now with A-fib with RVR ? Chest x-ray shows improving pulmonary vascular congestion ? Plan -Currently on Levophed at 1 ? Continue BiPAP, currently on 60% FiO2 ? Fluid restrictions at 1000 cc, has diuresed over 9 L negative ? Continue albumin ?Today will daily dose, 1 dose IV Lasix in the afternoon -monitor creatinine monitor urine output monitor potassium ?monitor fluid status, monitor creatinine, -Continue fludrocortisone, ? Continue Levophed to maintain MAP greater than 65 -Continue meropenem, continue vancomycin -Follow-up blood cultures -Continue verapamil -Continue to monitor respiratory status closely -Full code -Eliquis for DVT prophylaxis -Status is critical, prognosis is guarded (9) Pulmonary edema: (10) Fluid overload: (11) CHF (congestive heart failure): Qualifiers: Heart failure type: unspecified Heart failure chronicity: chronic Qualified Code(s): I50.9 - Heart failure, unspecified (12) Acute respiratory distress syndrome: (13) Sepsis: (14) Shock: - Possibly septic shock, given pneumonia ? Component of cardiogenic shock, given wall motion abnormalities on echocardiogram -component of adrenal insufficiency (15) Atrial fibrillation with RVR: (16) Digoxin toxicity: Digoxin levels over 3, digoxin was stopped amiodarone was stopped continue to monitor monitor potassium (17) Acute anemia: (18) Thrombocytopenia: - Patient has anemia, thrombocytopenia -Hold aspirin, Plavix, Eliquis ? Hemolytic labs, ? Repeat CBC this evening (19) Hyperbilirubinemia: Liver ultrasound no acute findings, next ?we will monitor Plan CAD: Plavix if able to tolerate, asa CHF: Currently not in exacerbation A-fib: Normally on Eliquis CKD: Creatinine 1.1 appears close to baseline. At risk of acute kidney injury with hyperkalemia, low oral intake. Hypotension. Reassess renal function. Electrolytes. Acid-base. GERD: PPI by IV at the moment. COPD: Not in exacerbation. Breathing treatments scheduled and as needed. History of HTN: This appears to be remote history, she is for the most part been having low blood pressures. Currently hypotensive. Smoking addiction: Encourage cessation. Nicotine replacement as needed. DM2: Accu-Cheks every 6 hours, insulin sliding scale. Guesses carb diet. Diabetic neuropathy: Hold off gabapentin for now due to hypotension. HLD: statin for now -Will monitor hemoglobin monitor platelet count, repeat CBC in the evening time, 1 dose of Lasix monitor respiratory status closely continue IV antibiotics, Attestations 2 Medical Necessity Statement*: Patient requires hospitalization for acute respiratory failure secondary to fluid overload now at developing anemia, thrombocytopenia, acute respiratory distress syndrome, pneumonia Levophed Diagnoses Hypotension, unspecified hypotension type I95.9 Hypotension type: unspecified hypotension type Enterocolitis K52.9 Hypokalemia E87.6 Hypomagnesemia E83.42 Adrenal insufficiency E27.40 Acquired hypothyroidism E03.9 Wall motion abnormality of inferior wall of left ventricle R94.30 Acute hypoxic respiratory failure J96.01 Pulmonary edema J81.1 Fluid overload E87.70 Acute on chronic congestive heart failure, unspecified heart failure type I50.9 Heart failure type: unspecified Heart failure chronicity: chronic Acute respiratory distress syndrome J80 Sepsis A41.9 Shock R57.9 Atrial fibrillation with RVR I48.91 Digoxin toxicity T46.0X1A Acute anemia D64.9 Thrombocytopenia D69.6 Hyperbilirubinemia E80.6
[2023-09-03 15:20] LABS: Reflex FDPQ test REFLEX FDP QUEST TES
[2023-09-03 15:24] LABS: Basophils % 0.3 %; Eosinophils % 0.1 %; Hematocrit 26.3 % (36-47); Lymphocytes # 1.6 10^3/uL (0.8-4.8); Lymphocytes % 20.1 %; Mean Corpuscular HGB Conc 31.9 g/dL (30-55); Mean Corpuscular Hemoglobin 31.7 pg (27-33); Mean Corpuscular Volume 99.2 fl (85-98); Monocytes # 0.5 10^3/uL (0.2-0.9); Monocytes % 6.2 %; Neutrophils # 5.59 10^3/uL (1.8-7.7); Neutrophils % 72.4 %; Nucleated Red Blood Cells % 0 %; Platelet Count 46 10^3/cmm (157-399); Red Blood Count 2.65 10^6/uL (3.85-5.65); Red Cell Distribution Width 15.8 % (12.1-15.1); White Blood Count 7.72 10^3/uL (3.29-11.43)
[2023-09-03 15:34] LABS: INR 2.54 (0.8-1.2)
[2023-09-03 15:35] LABS: Partial Thromboplastin Time 36.7 SECONDS (23.9-36.7)
[2023-09-03 15:36] LABS: Fibrinogen 163 mg/dL (174-498)
[2023-09-03 15:38] LABS: D Dimer 3.51 ug/mLFEU (0-0.59)
[2023-09-03 15:45] LABS: Slide Review Slide Review Perform
[2023-09-03 16:10] LABS: LAB Peripheral Smear Sent for Review
[2023-09-03 16:30] LABS: Ferritin 560 ng/mL (15-150); Iron 63 ug/dL (37-145)
[2023-09-03 16:55] LABS: Lactate Dehydrogenase 447 U/L (135-214)
[2023-09-03] MEDS: lidocaine 1% 5 ML in potassium chloride premix 100 ML 52.5 ML IV (17:29)
[2023-09-03] MEDS: FUROsemide 10 mg/mL SDV 4mL 40 MG IVP (17:29)
[2023-09-03] MEDS: gabapentin 300 mg Capsule 600 MG PO (17:30)
[2023-09-03 17:38] LABS: Glucose Point of Care 132 mg/dL (70-110)
[2023-09-03] MEDS: pantoprazole 40 mg SDV IVP (19:39)
[2023-09-03 19:55] LABS: Glucose Point of Care 172 mg/dL (70-110)
[2023-09-03] MEDS: atorvastatin 40 mg Tablet 20 MG PO (20:02)
[2023-09-03] MEDS: mirtazapine 30 mg Tablet PO (20:03)
--- NOTE | 2023-09-03 21:36 | PC.NURSE ---
Levophed Drip: At the beginning of this nurse's shift, Levophed drip was running at 3 mcg/min. MAR was updated to reflect this.
[2023-09-03 22:00] LABS: Glucose Point of Care 156 mg/dL (70-110)
[2023-09-04] VITALS (55 sets, daily range): BP systolic 78–124; BP diastolic 50–74; PULSE 67–79; RESP 12–28; TEMP 35.6–36.4; O2SAT 84–100; BMI 25.3
[2023-09-04] MEDS: meropenem 1,000 MG in sodium chloride 0.9% (plus) 50 ML 100 MG IV ×4 (00:01→23:31)
[2023-09-04 00:03] LABS: Glucose Point of Care 122 mg/dL (70-110)
[2023-09-04 02:10] LABS: Glucose Point of Care 92 mg/dL (70-110)
[2023-09-04] MEDS: magnesium lactate 84 mg Tablet PO ×2 (02:16→14:30)
[2023-09-04] MEDS: midodrine 5 mg TABLET 10 MG PO ×3 (02:16→18:46)
[2023-09-04] MEDS: ipratropium-albuterol 3 mL Neb INHALATION ×4 (02:21→19:42)
[2023-09-04 04:26] LABS: Glucose Point of Care 107 mg/dL (70-110)
[2023-09-04] MEDS: HYDROcodone-acetaminophen 5-325 mg Tablet 1 TAB PO ×3 (04:53→20:25)
[2023-09-04 04:55] LABS: Basophils % 0.1 %; Eosinophils % 0.3 %; Lymphocytes # 1.9 10^3/uL (0.8-4.8); Lymphocytes % 25.4 %; Mean Corpuscular HGB Conc 31.9 g/dL (30-55); Mean Corpuscular Hemoglobin 31.6 pg (27-33); Mean Corpuscular Volume 98.9 fl (85-98); Monocytes # 0.6 10^3/uL (0.2-0.9); Monocytes % 7.6 %; Neutrophils # 5.05 10^3/uL (1.8-7.7); Neutrophils % 65.9 %; Nucleated Red Blood Cells % 0 %; Platelet Count 55 10^3/cmm (157-399); Red Blood Count 2.63 10^6/uL (3.85-5.65); Red Cell Distribution Width 15.9 % (12.1-15.1); White Blood Count 7.65 10^3/uL (3.29-11.43)
[2023-09-04] MEDS: folic acid 1 mg Tablet PO (05:03)
[2023-09-04] MEDS: hydrocortisone 10 mg Tablet PO (05:03)
[2023-09-04] MEDS: levothyroxine 125 mcg Tablet PO (05:03)
[2023-09-04 05:05] LABS: Glucose Point of Care 107 mg/dL (70-110)
[2023-09-04 05:06] LABS: INR 2.09 (0.8-1.2)
[2023-09-04 05:12] LABS: Lactate (Lactic Acid level) 1.9 mmol/L (0.5-2.2)
[2023-09-04 05:18] LABS: Slide Review Slide Review Perform
[2023-09-04 05:27] LABS: Alanine Aminotransferase 14 U/L (0-33); Albumin Level 4.1 g/dL (3.5-5.2); Alkaline Phosphatase 97 U/L (35-105); Anion Gap 12.6 (5-19); Aspartate Amino Transferase 41 U/L (0-32); Blood Urea Nitrogen 24 mg/dL (8-23); C Reactive Protein 21.7 mg/L (0.0-4.9); Calcium 8.8 mg/dL (8.5-10.5); Carbon Dioxide 40 mmol/L (22-29); Chloride 87 mmol/L (98-107); Creatinine Clr Calc Pharmacy 64.2261; Globulin 1.7 g/dL (1.3-4.6); Glomerular Filtration Rate 83.5 mL/min (90-130); Glucose 88 mg/dL (65-115); Magnesium 2.4 mg/dL (1.7-2.3); Osmolality Calculated 285 mOsm/kg (285-295); Phosphorus 3.5 mg/dL (2.5-4.5); Potassium 3.6 mmol/L (3.5-5.1); Sodium 136 mmol/L (136-145); Total Bilirubin 2.4 mg/dL (0.15-1.2); Total Protein 5.8 g/dL (6.6-8.7)
[2023-09-04 05:28] LABS: Procalcitonin 0.59 ng/mL (0-0.5)
[2023-09-04] MEDS: norepinephrine 4 MG/250 ML BAG 7.5 MG IV (05:47)
[2023-09-04 05:54] LABS: NT Pro B Type Natriuretic Pept 61980 pg/mL (0-125)
--- NOTE | 2023-09-04 07:00 | XRR_ITS ---
PROCEDURE INFORMATION: Exam: XR Chest Exam date and time: 09/04/2023 7:24 AM Age: 67 years old Clinical indication: Shortness of breath; Additional info: SOB TECHNIQUE: Imaging protocol: Radiologic exam of the chest. Views: 1 view. COMPARISON: CR XR chest 1V portable [id number] 09/02/2023 8:55 AM FINDINGS: The thorax is partially obscured by overlying EKG leads. Tubes, catheters and devices: Left PICC line again demonstrated. Lungs: Hypoinflation with asymmetric elevation of the right hemidiaphragm and mild interstitial prominence. Pleural spaces: Questionable small right pleural effusion. Heart/Mediastinum: No cardiomegaly, allowing for portable positioning and hypoinflation. Bones/joints: Osteopenia, degenerative change, and mild scoliosis. XR/XR chest 1V portable [id number] IMPRESSION: 1. Hypoinflation with asymmetric elevation of the right hemidiaphragm and mild interstitial prominence. 2. Questionable small right pleural effusion.
--- NOTE | 2023-09-04 07:27 | P.PN_ITS ---
Subjective 2 Subjective: Peri is about the same this morning. She is comfortable lying flat. She was asleep again when I walked in the room. Since yesterday, her norepinephrine has been increased to 2 mcg/min. Blood pressures are still somewhat soft. Her creatinine remained stable. Her BNP is down to 62,000. Potassium is normal 3.6. Bicarbonate remains at 40. Platelet count is 55,000 today and her hemoglobin is about the same. Rhythm is sinus with a heart rate in the 70s. Aspirin and Plavix are still on hold. The Eliquis is being held as well. The verapamil has been discontinued. Vitals/I&O/Wt Last Vital Signs Temp 96.5 F L 09/04/23 05:30 Pulse 72 09/04/23 05:43 Resp 23 H 09/04/23 05:30 BP 99/54 09/04/23 05:30 Pulse Ox 100 09/04/23 05:30 O2 Del Method Heated High Flow 09/04/23 05:30 O2 Flow Rate 50 09/03/23 20:04 FiO2 53 09/04/23 04:00 09/03/23 09/04/23 09/04/23 22:59 06:59 14:59 Intake Total 254.772 / 833.2826 341.664 / 1174.9466 Output Total 500 / 500 500 / 1000 Balance -245.228 / 333.2826 -158.336 / 174.9466 Weight last 48 hrs Weight 147 lb 11 oz Weight 147 lb 11.355 oz Physical Exam 2 Narrative: GENERAL: Lying flat on the her back in the ICU breathing without difficulty HEENT: Exam within normal limits. NECK: Supple without jugular vein distention. The carotid upstroke is normal without bruits. BACK: Exam normal. LUNGS: Clear. HEART: Regular rate and rhythm. ABDOMEN: Benign without organomegaly or tenderness. EXTREMITIES: No edema. NEUROLOGIC: Exam normal. SKIN: Unremarkable. Urinary Catheter Management: Hooper: Cath Placed During This Visit: yes Reason for Continuing Indwelling Catheter: Accurate Measurement of Urinary Output in Critically Ill Patients Urinary Catheter Date of Insertion: 08/25/23 Urinary Catheter Time of Insertion: 22:59 Data 09/04/23 04:45 09/04/23 04:45 A&P Assessment and plan (1) HTN (hypertension): Qualifiers: Hypertension type: primary hypertension Qualified Code(s): I10 - Essential (primary) hypertension (2) S/P angioplasty with stent: (3) Hyperlipidemia: Qualifiers: Hyperlipidemia type: unspecified Qualified Code(s): E78.5 - Hyperlipidemia, unspecified (4) ASHD (arteriosclerotic heart disease): (5) CHF (congestive heart failure): Qualifiers: Heart failure type: unspecified Heart failure chronicity: chronic Qualified Code(s): I50.9 - Heart failure, unspecified (6) NSTEMI (non-ST elevated myocardial infarction): (7) Coronary artery disease: (8) Nicotine dependence, cigarettes, with other nicotine-induced disorders: (9) Hypotension: Qualifiers: Hypotension type: unspecified hypotension type Qualified Code(s): I95.9 - Hypotension, unspecified (10) Shock: (11) Atrial fibrillation with RVR: (12) Thrombocytopenia: (13) Pulmonary hypertension: (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 Remains critically ill but is stable for now. Attestations 2 Medical Necessity Statement*: Hospitalization for management of multiple serious medical problems and Moderate Time for a total of 35 minutes, includes reviewing past or interval history, examining/interviewing patient, counseling patient/family/other support, updating patient/family/other support and documenting encounter Diagnoses Primary hypertension I10 Hypertension type: primary hypertension S/P angioplasty with stent Z95.820 Hyperlipidemia, unspecified hyperlipidemia type E78.5 Hyperlipidemia type: unspecified ASHD (arteriosclerotic heart disease) I25.10 Acute on chronic congestive heart failure, unspecified heart failure type I50.9 Heart failure type: unspecified Heart failure chronicity: chronic NSTEMI (non-ST elevated myocardial infarction) I21.4 Coronary artery disease I25.10 Nicotine dependence, cigarettes, with other nicotine-induced disorders F17.218 Hypotension, unspecified hypotension type I95.9 Hypotension type: unspecified hypotension type Shock R57.9 Atrial fibrillation with RVR I48.91 Thrombocytopenia D69.6 Pulmonary hypertension I27.20 Diabetes 1.5, managed as type 2 E13.9 Hyperbilirubinemia E80.6 Stage 3a chronic kidney disease N18.31 Chronic kidney disease stage: stage 3 (moderate) Chronic kidney disease stage 3 subtype: stage 3a (GFR 45-59)
[2023-09-04] MEDS: calcium carbonate 500 mg Chew Tablet 1000 MG PO (08:14)
[2023-09-04] MEDS: fludrocortisone 0.1 mg Tablet 0.100000000000000006 MG PO (08:14)
[2023-09-04] MEDS: gabapentin 300 mg Capsule 900 MG PO (08:15)
[2023-09-04] MEDS: FUROsemide 10 mg/mL SDV 4mL 40 MG IVP (08:15)
[2023-09-04] MEDS: lidocaine 1% 5 ML in potassium chloride premix 100 ML 52.5 ML IV (08:15)
[2023-09-04] MEDS: polyethylene glycol 3350 Pkt 17 gm PO (08:38)
[2023-09-04] MEDS: linezolid premix 600 MG/300 ML PREMIX 300 MG IV ×2 (08:38→20:26)
--- NOTE | 2023-09-04 09:42 | PC.SOCIAL ---
IMM Updated pg 2 of IMM updated and reviewed w/ patient. Copy provided and copy dated, initialed and placed in chart.
[2023-09-04 11:21] LABS: Glucose Point of Care 114 mg/dL (70-110)
[2023-09-04] MEDS: hydrocortisone 10 mg Tablet 5 MG PO (11:28)
[2023-09-04] MEDS: calcitriol 0.25 mcg Capsule PO (11:28)
--- NOTE | 2023-09-04 11:56 | P.PN_ITS ---
Vitals/I&O/Wt Last Vital Signs Temp 96.5 F L 09/04/23 05:30 Pulse 75 09/04/23 11:29 Resp 16 09/04/23 11:29 BP 107/63 09/04/23 09:00 Pulse Ox 93 09/04/23 11:29 O2 Del Method Heated High Flow 09/04/23 07:50 O2 Flow Rate 45 09/04/23 11:29 FiO2 55 09/04/23 11:29 09/03/23 09/04/23 09/04/23 22:59 06:59 14:59 Intake Total 554.772 / 1133.2826 391.664 / 1524.9466 Output Total 500 / 500 500 / 1000 Balance 54.772 / 633.2826 -108.336 / 524.9466 Weight last 48 hrs Weight 66.99 kg Weight 67 kg Physical Exam 2 Const: COMMON NORMALS: no acute distress and patient oriented x3 Resp: COMMON NORMALS: normal respiratory effort, No retractions and No use of accessory muscles AUSCULTATION: crackles Cardio: COMMON NORMALS: regular rate, regular rhythm, S1 normal heart sound present and S2 normal heart sound present RATE: regular rate RHYTHM: r egular rhythm HEART SOUNDS: S1 normal heart sound present and S2 normal heart sound present GI: COMMON NORMALS: Normal to inspection, nondistended, normoactive bowel sounds present and non-tender Extremity: COMMON NORMALS: no pedal edema Neuro: COMMON NORMALS: patient oriented x3 Psych: COMMON NORMALS: mental status grossly normal Urinary Catheter Management: Hooper: Cath Placed During This Visit: yes Reason for Continuing Indwelling Catheter: Accurate Measurement of Urinary Output in Critically Ill Patients Urinary Catheter Date of Insertion: 08/25/23 Urinary Catheter Time of Insertion: 22:59 Data 09/04/23 04:45 09/04/23 04:45 A&P Assessment and plan (1) Hypotension: -Likely multifactorial - adrenal insufficiency, sepsis, acute respiratory failure -midodrine 10mg 3 times daily neck ? Wean Levophed ? Wean hydrocortisone, fludrocortisone Qualifiers: Hypotension type: unspecified hypotension type Qualified Code(s): I95.9 - Hypotension, unspecified (2) Enterocolitis: CT/CT abdomen pelvis w con* [id number] IMPRESSION: New low-density wall thickening seen through much of the colon as well as portions of small bowel raising consideration of enterocolopathy of portal hypertension, enterocolitis (either infectious/inflammatory or ischemic) , or angioedema. Mild increase in ascites which remains small. Large gallstone again noted within gallbladder. Fatty liver. -Gallbladder ultrasound IMPRESSION: 1. Extremely difficult evaluation of the RIGHT upper quadrant due to body habitus. 2. Cholelithiasis without acute cholecystitis. No bile duct dilatation. 3. Cirrhotic liver with hepatic steatosis. PLAN: -ruq us -follow LFT, lipase, ggt (3) Hypokalemia: Replace hypokalemia. Has received some magnesium. Recheck magnesium level. (4) Hypomagnesemia: Received supplementation. Recheck level. (5) Adrenal insufficiency: as above. (6) Acquired hypothyroidism: TSH 15.91. Has not been able to take her medications. Receiving stress dose steroids as above. (7) Wall motion abnormality of inferior wall of left ventricle: - History of severe coronary artery disease one-vessel disease, distal RCA treated with balloon and drug-eluting stent, back in 2019 Echocardiogram - Normal LV size with a slightly diminished ejection fraction of 50% (visual). Mild left-ventricular hypertrophy. Wall motion abnormalities as mentioned above Moderate mitral annular calcification. Normal RV size and ejection fraction There is no pericardial effusion. There are no intracardiac masses. Compared to the study from 06/27/2023, the wall motion abnormalities appear to be new Plan ? Serial EKGs, serial troponins, telemetry monitoring ? Aspirin, Plavix on hold -Given wall motion abnormalities, consulted cardiology (8) Acute hypoxic respiratory failure: -Acute hypoxic respiratory failure ? With development of acute respiratory distress syndrome -Secondary to fluid overload, pulmonary edema, systolic CHF [place] [id number], chest x-ray showing pulm vascular congestion - pneumonia, given leukocytosis elevated Pro-Reilly, CRP -Now with A-fib with RVR ? Chest x-ray shows improving pulmonary vascular congestion ? Plan -Currently on Levophed at 2 ? Continue BiPAP, currently on 40% FiO2 ? Fluid restrictions at 1000 cc, has diuresed over 9 L negative ? Continue albumin ?Today will daily dose, 1 dose IV Lasix -monitor creatinine monitor urine output monitor potassium ?monitor fluid status, monitor creatinine, -Continue fludrocortisone, ? Continue Levophed to maintain MAP greater than 65 -Continue meropenem, continue vancomycin -Follow-up blood cultures - verapamil on hold -Continue to monitor respiratory status closely -Full code -Eliquis for DVT prophylaxis -Status is critical, prognosis is guarded (9) Pulmonary edema: (10) Fluid overload: (11) CHF (congestive heart failure): Qualifiers: Heart failure type: unspecified Heart failure chronicity: chronic Qualified Code(s): I50.9 - Heart failure, unspecified (12) Acute respiratory distress syndrome: (13) Sepsis: (14) Shock: - Possibly septic shock, given pneumonia ? Component of cardiogenic shock, given wall motion abnormalities on echocardiogram -component of adrenal insufficiency (15) Atrial fibrillation with RVR: (16) Digoxin toxicity: resolved, Digoxin levels over 3, digoxin was stopped amiodarone was stopped continue to monitor monitor potassium (17) Acute anemia: (18) Thrombocytopenia: - Patient has anemia, thrombocytopenia -Hold aspirin, Plavix, Eliquis ? Hemolytic labs, ? Repeat CBC this evening (19) Hyperbilirubinemia: Liver ultrasound no acute findings, next ?we will monitor Plan CAD: Plavix if able to tolerate, asa CHF: Currently not in exacerbation A-fib: Normally on Eliquis CKD: Creatinine 1.1 appears close to baseline. At risk of acute kidney injury with hyperkalemia, low oral intake. Hypotension. Reassess renal function. Electrolytes. Acid-base. GERD: PPI by IV at the moment. COPD: Not in exacerbation. Breathing treatments scheduled and as needed. History of HTN: This appears to be remote history, she is for the most part been having low blood pressures. Currently hypotensive. Smoking addiction: Encourage cessation. Nicotine replacement as needed. DM2: Accu-Cheks every 6 hours, insulin sliding scale. Guesses carb diet. Diabetic neuropathy: Hold off gabapentin for now due to hypotension. HLD: statin for now -Will monitor hemoglobin monitor platelet count, rep 1 dose of Lasix monitor respiratory status closely continue IV antibiotics, up out of bed Attestations 2 Medical Necessity Statement*: Patient requires hospitalization for fluid overload chronic requiring IV diuresis, currently Levophed going at 1, plan for today up out of bed, PT OT, IV diuresis, monitoring respiratory status continue to hold aspirin, Plavix, Eliquis, holding verapamil Diagnoses Hypotension, unspecified hypotension type I95.9 Hypotension type: unspecified hypotension type Enterocolitis K52.9 Hypokalemia E87.6 Hypomagnesemia E83.42 Adrenal insufficiency E27.40 Acquired hypothyroidism E03.9 Wall motion abnormality of inferior wall of left ventricle R94.30 Acute hypoxic respiratory failure J96.01 Pulmonary edema J81.1 Fluid overload E87.70 Acute on chronic congestive heart failure, unspecified heart failure type I50.9 Heart failure type: unspecified Heart failure chronicity: chronic Acute respiratory distress syndrome J80 Sepsis A41.9 Shock R57.9 Atrial fibrillation with RVR I48.91 Digoxin toxicity T46.0X1A Acute anemia D64.9 Thrombocytopenia D69.6 Hyperbilirubinemia E80.6
[2023-09-04 14:26] LABS: Glucose Point of Care 158 mg/dL (70-110)
--- NOTE | 2023-09-04 16:22 | PC.SLP ---
FILTER SCREEN CLEANER attempted to follow-up with the pt, however, the pt was not able to maitain alertness to participate. The pt's nurse was informed of the pt's status.
[2023-09-04 16:29] LABS: Glucose Point of Care 149 mg/dL (70-110)
[2023-09-04 16:29] LABS: Glucose Point of Care 134 mg/dL (70-110)
[2023-09-04] MEDS: insulin lispro 100 unit/1 mL SUBCUT (17:13)
[2023-09-04] MEDS: gabapentin 300 mg Capsule 600 MG PO (17:14)
[2023-09-04 17:25] LABS: Glucose Point of Care 158 mg/dL (70-110)
[2023-09-04 20:22] LABS: Glucose Point of Care 185 mg/dL (70-110)
[2023-09-04] MEDS: mirtazapine 30 mg Tablet PO (20:25)
[2023-09-04] MEDS: atorvastatin 40 mg Tablet 20 MG PO (20:25)
[2023-09-04] MEDS: pantoprazole 40 mg SDV IVP (20:26)
[2023-09-04 21:54] LABS: Glucose Point of Care 208 mg/dL (70-110)
[2023-09-04] MEDS: cyclobenzaprine 10 mg Tablet 5 MG PO (23:40)
[2023-09-04 23:41] LABS: Glucose Point of Care 120 mg/dL (70-110)
[2023-09-05] VITALS (51 sets, daily range): BP systolic 76–126; BP diastolic 48–93; PULSE 70–93; RESP 8–22; TEMP 36.1–37.3; O2SAT 88–100; BMI 25.6
[2023-09-05] MEDS: magnesium lactate 84 mg Tablet PO ×2 (02:25→14:51)
[2023-09-05] MEDS: midodrine 5 mg TABLET 10 MG PO ×3 (02:25→19:20)
[2023-09-05 02:46] LABS: Glucose Point of Care 109 mg/dL (70-110)
[2023-09-05] MEDS: ipratropium-albuterol 3 mL Neb INHALATION ×4 (02:58→19:41)
[2023-09-05 04:02] LABS: Basophils % 0.1 %; Eosinophils % 0.1 %; Hematocrit 27.6 % (36-47); Lymphocytes # 2.9 10^3/uL (0.8-4.8); Lymphocytes % 25.8 %; Mean Corpuscular HGB Conc 31.9 g/dL (30-55); Mean Corpuscular Hemoglobin 31.5 pg (27-33); Mean Corpuscular Volume 98.9 fl (85-98); Monocytes # 0.9 10^3/uL (0.2-0.9); Monocytes % 7.7 %; Neutrophils % 65.4 %; Nucleated Red Blood Cells % 0 %; Platelet Count 83 10^3/cmm (157-399); Red Blood Count 2.79 10^6/uL (3.85-5.65); Red Cell Distribution Width 15.6 % (12.1-15.1); White Blood Count 11.16 10^3/uL (3.29-11.43)
[2023-09-05 04:25] LABS: Lactate (Lactic Acid level) 2.4 mmol/L (0.5-2.2)
[2023-09-05 04:29] LABS: INR 1.53 (0.8-1.2)
[2023-09-05 04:33] LABS: Alanine Aminotransferase 21 U/L (0-33); Albumin Level 4.1 g/dL (3.5-5.2); Alkaline Phosphatase 125 U/L (35-105); Anion Gap 14.7 (5-19); Aspartate Amino Transferase 71 U/L (0-32); Blood Urea Nitrogen 24 mg/dL (8-23); C Reactive Protein 14.6 mg/L (0.0-4.9); Calcium 8.7 mg/dL (8.5-10.5); Carbon Dioxide 38 mmol/L (22-29); Chloride 87 mmol/L (98-107); Creatinine Clr Calc Pharmacy 64.2218; Globulin 1.9 g/dL (1.3-4.6); Glomerular Filtration Rate 83.5 mL/min (90-130); Glucose 133 mg/dL (65-115); Magnesium 2.5 mg/dL (1.7-2.3); Osmolality Calculated 288 mOsm/kg (285-295); Phosphorus 2.4 mg/dL (2.5-4.5); Potassium 3.7 mmol/L (3.5-5.1); Sodium 136 mmol/L (136-145); Total Bilirubin 1.8 mg/dL (0.15-1.2)
[2023-09-05 04:36] LABS: Procalcitonin 0.53 ng/mL (0-0.5)
[2023-09-05 04:57] LABS: Glucose Point of Care 106 mg/dL (70-110)
[2023-09-05 04:58] LABS: NT Pro B Type Natriuretic Pept 38486 pg/mL (0-125)
[2023-09-05 05:57] LABS: Glucose Point of Care 93 mg/dL (70-110)
[2023-09-05] MEDS: folic acid 1 mg Tablet PO (05:58)
[2023-09-05] MEDS: hydrocortisone 10 mg Tablet PO (05:58)
[2023-09-05] MEDS: levothyroxine 125 mcg Tablet PO (05:58)
--- NOTE | 2023-09-05 06:15 | XRR_ITS ---
PROCEDURE INFORMATION: Exam: XR Chest Exam date and time: 09/05/2023 5:57 AM Age: 67 years old Clinical indication: Other: Unresponsive; Additional info: Patient went unresponsive and had apneic episode. TECHNIQUE: Imaging protocol: Radiologic exam of the chest. Views: 1 view. COMPARISON: CR XR chest 1V portable [id number] 09/04/2023 7:24 AM FINDINGS: Tubes, catheters and devices: PICC line terminates at the cavoatrial junction stable from comparison. Lungs: Coarse reticular changes of the interstitium stable from prior. The lung volumes persist. Negative for consolidation. Pleural spaces: Unremarkable. No pleural effusion. No pneumothorax. Heart/Mediastinum: Unremarkable. No cardiomegaly. Bones/joints: Unremarkable. XR/XR chest 1V portable [id number] IMPRESSION: 1. No focal acute pulmonary disease. 2. No change from comparison.
--- NOTE | 2023-09-05 06:17 | PC.NURSE ---
When this nurse was in the room giving the patient their morning medications, the patient went unresponsive and had apneic episode. Patient was put on Bipap and sternal rubbed and they became responsive again. Dr. Waite was contacted and he ordered an ABG blood gas to be drawn and for a chest ray to be done.
[2023-09-05 06:26] LABS: ABG PCO2 50.4 mmHg (35-45); ABG PH Result 7.53 (7.35-7.45); Arterial Blood Gas Hematocrit 27.7 % (37-47); Base Excess ABG 17.3 mmol/L (-2.0-2.0); Blood Gas Allen Test Pos; Blood Gas Operator Identificat JB; Blood Gas Sample Site Radial, right; Blood Gas Sample Type Arterial; Oxygen Device BIPAP; PO2 ABG 53.9 mmHg (80.0-100.0); PO2 FiO2 Ratio Arterial Blood 0
--- NOTE | 2023-09-05 08:03 | P.PN_ITS ---
Subjective 2 Subjective: Peri is about the same. She is extremely weak. She remains on 2 mcg/min of norepinephrine. The pain in her legs has subsided somewhat. She does not have much of an appetite. She is arousable and recognize me this morning. Her hemoglobin and hematocrit are about the same. Platelet count is coming up and is now 83,000. Her BNP has decreased to 38,000. Her creatinine is still normal. The glomerular filtration rate is 83. Other electrolytes are stable. Carbon dioxide is down to 38. Her blood pressures are running in the 80s. Her heart rate is below 100 and in sinus rhythm. Vitals/I&O/Wt Last Vital Signs Temp 99.1 F 09/05/23 04:00 Pulse 79 09/05/23 07:58 Resp 22 H 09/05/23 07:54 BP 99/59 09/05/23 04:00 Pulse Ox 100 09/05/23 07:54 O2 Del Method Oxymask 09/05/23 07:54 O2 Flow Rate 10 09/05/23 07:54 FiO2 50 09/05/23 02:59 09/04/23 09/05/23 09/05/23 22:59 06:59 14:59 Intake Total 469.25 / 934.25 361 / 1295.25 Output Total 420 / 1020 350 / 1370 Balance 49.25 / -85.75 11 / -74.75 Weight last 48 hrs Weight 149 lb 7 oz Weight 147 lb 11 oz Physical Exam 2 Narrative: GENERAL: In general she is comfortable in bed but very weak. HEENT: Exam within normal limits. NECK: Supple without jugular vein distention. The carotid upstroke is normal without bruits. BACK: Exam normal. LUNGS: Clear. HEART: Regular rate and rhythm. ABDOMEN: Benign without organomegaly or tenderness. EXTREMITIES: No edema. NEUROLOGIC: Exam normal. SKIN: Unremarkable. Urinary Catheter Management: Hooper: Cath Placed During This Visit: yes Reason for Continuing Indwelling Catheter: Accurate Measurement of Urinary Output in Critically Ill Patients Urinary Catheter Date of Insertion: 08/25/23 Urinary Catheter Time of Insertion: 22:59 Data 09/05/23 03:30 09/05/23 03:30 A&P Assessment and plan (1) HTN (hypertension): Qualifiers: Hypertension type: primary hypertension Qualified Code(s): I10 - Essential (primary) hypertension (2) S/P angioplasty with stent: (3) Hyperlipidemia: Qualifiers: Hyperlipidemia type: unspecified Qualified Code(s): E78.5 - Hyperlipidemia, unspecified (4) ASHD (arteriosclerotic heart disease): (5) CHF (congestive heart failure): Qualifiers: Heart failure type: unspecified Heart failure chronicity: chronic Qualified Code(s): I50.9 - Heart failure, unspecified (6) Coronary artery disease: (7) Nicotine dependence, cigarettes, with other nicotine-induced disorders: (8) Shock: (9) Atrial fibrillation with RVR: (10) Thrombocytopenia: (11) Pulmonary hypertension: (12) Diabetes 1.5, managed as type 2: (13) Enterocolitis: (14) CKD (chronic kidney disease): Qualifiers: Chronic kidney disease stage: stage 3 (moderate) Chronic kidney disease stage 3 subtype: stage 3a (GFR 45-59) Qualified Code(s): N18.31 - Chronic kidney disease, stage 3a (15) Acute anemia: (16) Sepsis: (17) COPD (chronic obstructive pulmonary disease): (18) EDNA (obstructive sleep apnea): Plan No changes today. Anticoagulants and antiplatelet agents are on hold. Verapamil has been stopped. He remains critically ill but somewhat stable. Attestations 2 Medical Necessity Statement*: Continued hospitalization for management of multiple serious medical problems and Moderate Time for a total of 35 minutes, includes reviewing past or interval history, examining/interviewing patient, placing orders, counseling patient/family/other support, updating patient/family/other support, discussing plan of care with staff, communicating with other healthcare providers and documenting encounter Diagnoses Primary hypertension I10 Hypertension type: primary hypertension S/P angioplasty with stent Z95.820 Hyperlipidemia, unspecified hyperlipidemia type E78.5 Hyperlipidemia type: unspecified ASHD (arteriosclerotic heart disease) I25.10 Acute on chronic congestive heart failure, unspecified heart failure type I50.9 Heart failure type: unspecified Heart failure chronicity: chronic Coronary artery disease I25.10 Nicotine dependence, cigarettes, with other nicotine-induced disorders F17.218 Shock R57.9 Atrial fibrillation with RVR I48.91 Thrombocytopenia D69.6 Pulmonary hypertension I27.20 Diabetes 1.5, managed as type 2 E13.9 Enterocolitis K52.9 Stage 3a chronic kidney disease N18.31 Chronic kidney disease stage: stage 3 (moderate) Chronic kidney disease stage 3 subtype: stage 3a (GFR 45-59) Acute anemia D64.9 Sepsis A41.9 Chronic obstructive pulmonary disease with acute exacerbation J44.9 EDNA (obstructive sleep apnea) G47.33
[2023-09-05] MEDS: potassium phosphate (mEq K) 40 MEQ in sodium chloride 0.9% (100 ml) 100 ML 27.2699999999999996 MEQ IV (09:00)
[2023-09-05] MEDS: meropenem 1,000 MG in sodium chloride 0.9% (plus) 50 ML 100 MG IV (09:00)
[2023-09-05] MEDS: linezolid premix 600 MG/300 ML PREMIX 300 MG IV (09:01)
[2023-09-05] MEDS: FUROsemide 10 mg/mL SDV 4mL 40 MG IVP (09:01)
[2023-09-05] MEDS: polyethylene glycol 3350 Pkt 17 gm PO (09:10)
[2023-09-05] MEDS: gabapentin 300 mg Capsule 900 MG PO (09:10)
[2023-09-05] MEDS: fludrocortisone 0.1 mg Tablet 0.100000000000000006 MG PO (09:10)
[2023-09-05] MEDS: amoxicillin-clav 875-125 mg Tablet 1 TAB PO ×2 (09:33→17:10)
[2023-09-05] MEDS: sennosides-docusate Tablet 2 TAB PO (09:33)
[2023-09-05] MEDS: HYDROcodone-acetaminophen 5-325 mg Tablet 1 TAB PO (09:33)
[2023-09-05] MEDS: hydrocortisone 10 mg Tablet 5 MG PO (11:30)
[2023-09-05 11:33] LABS: Glucose Point of Care 113 mg/dL (70-110)
[2023-09-05] MEDS: norepinephrine 4 MG/250 ML BAG 7.5 MG IV (11:35)
--- NOTE | 2023-09-05 16:14 | P.PN_ITS ---
Subjective 2 Subjective: Patient was seen this morning, she is alert to person, to place, not to time she can follow commands she reports a poor appetite, no fevers, no chills, no cough Vitals/I&O/Wt Last Vital Signs Temp 96.9 F L 09/05/23 09:00 Pulse 76 09/05/23 13:27 Resp 19 H 09/05/23 13:27 BP 94/58 09/05/23 09:00 Pulse Ox 94 09/05/23 13:27 O2 Del Method High Flow Nasal Cannula 09/05/23 13:27 O2 Flow Rate 8 09/05/23 13:27 FiO2 50 09/05/23 02:59 09/05/23 09/05/23 09/05/23 06:59 14:59 22:59 Intake Total 361 / 1295.25 818.2606 / 818.2606 Output Total 350 / 1370 Balance 11 / -74.75 818.2606 / 818.2606 Weight last 48 hrs Weight 67.784 kg Weight 66.99 kg Physical Exam 2 Const: COMMON NORMALS: no acute distress and patient oriented x3 Resp: COMMON NORMALS: normal respiratory effort, No retractions, No use of accessory muscles and clear to auscultation bilaterally AUSCULTATION: clear to auscultation bilaterally Cardio: COMMON NORMALS: regular rate, regular rhythm, S1 normal heart sound present and S2 normal heart sound present RATE: regular rate RHYTHM: r egular rhythm HEART SOUNDS: S1 normal heart sound present and S2 normal heart sound present GI: COMMON NORMALS: Normal to inspection, nondistended, normoactive bowel sounds present and non-tender Extremity: COMMON NORMALS: no pedal edema Neuro: COMMON NORMALS: patient oriented x3 Psych: COMMON NORMALS: mental status grossly normal Urinary Catheter Management: Hooper: Cath Placed During This Visit: yes Reason for Continuing Indwelling Catheter: Accurate Measurement of Urinary Output in Critically Ill Patients Urinary Catheter Date of Insertion: 08/25/23 Urinary Catheter Time of Insertion: 22:59 Data 09/05/23 03:30 09/05/23 03:30 A&P Assessment and plan (1) Hypotension: -Likely multifactorial - adrenal insufficiency, sepsis, acute respiratory failure -midodrine 10mg 3 times daily neck ? Wean Levophed ? Wean hydrocortisone, fludrocortisone Qualifiers: Hypotension type: unspecified hypotension type Qualified Code(s): I95.9 - Hypotension, unspecified (2) Enterocolitis: CT/CT abdomen pelvis w con* [id number] IMPRESSION: New low-density wall thickening seen through much of the colon as well as portions of small bowel raising consideration of enterocolopathy of portal hypertension, enterocolitis (either infectious/inflammatory or ischemic) , or angioedema. Mild increase in ascites which remains small. Large gallstone again noted within gallbladder. Fatty liver. -Gallbladder ultrasound IMPRESSION: 1. Extremely difficult evaluation of the RIGHT upper quadrant due to body habitus. 2. Cholelithiasis without acute cholecystitis. No bile duct dilatation. 3. Cirrhotic liver with hepatic steatosis. PLAN: -ruq us -follow LFT, lipase, ggt (3) Hypokalemia: Replace hypokalemia. Has received some magnesium. Recheck magnesium level. (4) Hypomagnesemia: Received supplementation. Recheck level. (5) Adrenal insufficiency: as above. (6) Acquired hypothyroidism: TSH 15.91. Has not been able to take her medications. Receiving stress dose steroids as above. (7) Wall motion abnormality of inferior wall of left ventricle: - History of severe coronary artery disease one-vessel disease, distal RCA treated with balloon and drug-eluting stent, back in 2019 Echocardiogram - Normal LV size with a slightly diminished ejection fraction of 50% (visual). Mild left-ventricular hypertrophy. Wall motion abnormalities as mentioned above Moderate mitral annular calcification. Normal RV size and ejection fraction There is no pericardial effusion. There are no intracardiac masses. Compared to the study from 06/27/2023, the wall motion abnormalities appear to be new Plan ? Serial EKGs, serial troponins, telemetry monitoring ? Aspirin, Plavix on hold -Given wall motion abnormalities, consulted cardiology (8) Acute hypoxic respiratory failure: -Acute hypoxic respiratory failure ? With development of acute respiratory distress syndrome -Secondary to fluid overload, pulmonary edema, systolic CHF [place] [address], chest x-ray showing pulm vascular congestion - pneumonia, given leukocytosis elevated Pro-Reilly, CRP -Now with A-fib with RVR ? Chest x-ray shows improving pulmonary vascular congestion ? Plan -Currently on Levophed at 2 ? Continue BiPAP, currently on 40% FiO2 ? Fluid restrictions at 1000 cc, has diuresed over 9 L negative ? Continue albumin ?Today will daily dose, 1 dose IV Lasix -monitor creatinine monitor urine output monitor potassium ?monitor fluid status, monitor creatinine, -Continue fludrocortisone, ? Continue Levophed to maintain MAP greater than 65 -Continue meropenem, continue vancomycin -Follow-up blood cultures - verapamil on hold -Continue to monitor respiratory status closely -Full code -Eliquis for DVT prophylaxis -Status is critical, prognosis is guarded (9) Pulmonary edema: (10) Fluid overload: (11) CHF (congestive heart failure): Qualifiers: Heart failure type: unspecified Heart failure chronicity: chronic Qualified Code(s): I50.9 - Heart failure, unspecified (12) Acute respiratory distress syndrome: (13) Sepsis: (14) Shock: - Possibly septic shock, given pneumonia ? Component of cardiogenic shock, given wall motion abnormalities on echocardiogram -component of adrenal insufficiency (15) Atrial fibrillation with RVR: (16) Digoxin toxicity: resolved, Digoxin levels over 3, digoxin was stopped amiodarone was stopped continue to monitor monitor potassium (17) Acute anemia: (18) Thrombocytopenia: - Patient has anemia, thrombocytopenia -Hold aspirin, Plavix, Eliquis ? Hemolytic labs, ? Repeat CBC this evening (19) Hyperbilirubinemia: Liver ultrasound no acute findings, next ?we will monitor Plan CAD: Plavix if able to tolerate, asa CHF: Currently not in exacerbation A-fib: Normally on Eliquis CKD: Creatinine 1.1 appears close to baseline. At risk of acute kidney injury with hyperkalemia, low oral intake. Hypotension. Reassess renal function. Electrolytes. Acid-base. GERD: PPI by IV at the moment. COPD: Not in exacerbation. Breathing treatments scheduled and as needed. History of HTN: This appears to be remote history, she is for the most part been having low blood pressures. Currently hypotensive. Smoking addiction: Encourage cessation. Nicotine replacement as needed. DM2: Accu-Cheks every 6 hours, insulin sliding scale. Guesses carb diet. Diabetic neuropathy: Hold off gabapentin for now due to hypotension. HLD: statin for now -1 dose of Lasix today, up out of bed, PT OT, stop IV antibiotics, wean off Levophed Attestations 2 Medical Necessity Statement*: Patient requires hospitalization for respiratory failure, CHF, remains on 2 mics of Levophed, will wean off, BNP improving to 30,000, deconditioning, protein, nutrition, consult dietary Diagnoses Hypotension, unspecified hypotension type I95.9 Hypotension type: unspecified hypotension type Enterocolitis K52.9 Hypokalemia E87.6 Hypomagnesemia E83.42 Adrenal insufficiency E27.40 Acquired hypothyroidism E03.9 Wall motion abnormality of inferior wall of left ventricle R94.30 Acute hypoxic respiratory failure J96.01 Pulmonary edema J81.1 Fluid overload E87.70 Acute on chronic congestive heart failure, unspecified heart failure type I50.9 Heart failure type: unspecified Heart failure chronicity: chronic Acute respiratory distress syndrome J80 Sepsis A41.9 Shock R57.9 Atrial fibrillation with RVR I48.91 Digoxin toxicity T46.0X1A Acute anemia D64.9 Thrombocytopenia D69.6 Hyperbilirubinemia E80.6
[2023-09-05] MEDS: gabapentin 300 mg Capsule 600 MG PO (17:11)
[2023-09-05 17:22] LABS: Glucose Point of Care 115 mg/dL (70-110)
[2023-09-05] MEDS: mirtazapine 30 mg Tablet PO (21:08)
[2023-09-05] MEDS: atorvastatin 40 mg Tablet 20 MG PO (21:08)
[2023-09-05] MEDS: pantoprazole 40 mg SDV IVP (21:08)
[2023-09-05 21:19] LABS: Glucose Point of Care 108 mg/dL (70-110)
[2023-09-05] MEDS: apixaban 5 mg Tablet 2.5 MG PO (21:32)
[2023-09-06] VITALS (227 sets, daily range): BP systolic 73–124; BP diastolic 48–91; PULSE 67–85; RESP 7–30; TEMP 35.9–36.4; O2SAT 57–100
[2023-09-06] MEDS: HYDROcodone-acetaminophen 5-325 mg Tablet 1 TAB PO ×3 (00:43→18:25)
[2023-09-06] MEDS: magnesium lactate 84 mg Tablet PO ×2 (00:51→13:55)
[2023-09-06 01:08] LABS: Glucose Point of Care 101 mg/dL (70-110)
[2023-09-06] MEDS: ipratropium-albuterol 3 mL Neb INHALATION ×4 (02:24→20:15)
[2023-09-06] MEDS: midodrine 5 mg TABLET 10 MG PO ×3 (02:33→18:25)
[2023-09-06] MEDS: folic acid 1 mg Tablet PO (05:02)
[2023-09-06] MEDS: hydrocortisone 10 mg Tablet PO (05:02)
[2023-09-06] MEDS: levothyroxine 125 mcg Tablet PO (05:02)
[2023-09-06 05:04] LABS: Basophils % 0.1 %; Eosinophils # 0.1 10^3/uL (0.0-0.8); Eosinophils % 1.1 %; Hematocrit 27.4 % (36-47); Lymphocytes # 2.8 10^3/uL (0.8-4.8); Lymphocytes % 25.7 %; Mean Corpuscular Hemoglobin 31.1 pg (27-33); Mean Corpuscular Volume 100.4 fl (85-98); Mean Platelet Volume 14.2 fL (7.4-10.4); Monocytes # 0.6 10^3/uL (0.2-0.9); Monocytes % 5.2 %; Neutrophils % 67.3 %; Nucleated Red Blood Cells % 0 %; Platelet Count 89 10^3/cmm (157-399); Red Blood Count 2.73 10^6/uL (3.85-5.65); Red Cell Distribution Width 15.6 % (12.1-15.1); White Blood Count 10.83 10^3/uL (3.29-11.43)
[2023-09-06 05:11] LABS: INR 1.54 (0.8-1.2)
[2023-09-06 05:16] LABS: Lactate (Lactic Acid level) 1.6 mmol/L (0.5-2.2)
[2023-09-06 05:26] LABS: NT Pro B Type Natriuretic Pept 24935 pg/mL (0-125); Procalcitonin 0.44 ng/mL (0-0.5)
[2023-09-06 05:28] LABS: Glucose Point of Care 90 mg/dL (70-110)
[2023-09-06 05:31] LABS: Alanine Aminotransferase 19 U/L (0-33); Albumin Level 3.8 g/dL (3.5-5.2); Alkaline Phosphatase 123 U/L (35-105); Anion Gap 12.1 (5-19); Aspartate Amino Transferase 65 U/L (0-32); Blood Urea Nitrogen 23 mg/dL (8-23); C Reactive Protein 10.1 mg/L (0.0-4.9); Calcium 8.4 mg/dL (8.5-10.5); Carbon Dioxide 39 mmol/L (22-29); Chloride 91 mmol/L (98-107); Creatinine Clr Calc Pharmacy 64.5639; Globulin 1.9 g/dL (1.3-4.6); Glomerular Filtration Rate 99.7 mL/min (90-130); Glucose 74 mg/dL (65-115); Magnesium 2.4 mg/dL (1.7-2.3); Osmolality Calculated 290 mOsm/kg (285-295); Phosphorus 3.1 mg/dL (2.5-4.5); Potassium 3.1 mmol/L (3.5-5.1); Sodium 139 mmol/L (136-145); Total Bilirubin 1.4 mg/dL (0.15-1.2); Total Protein 5.7 g/dL (6.6-8.7)
[2023-09-06 06:24] LABS: Glucose Point of Care 106 mg/dL (70-110)
[2023-09-06] MEDS: lidocaine 1% 5 ML in potassium chloride premix 100 ML 25 ML IV (06:37)
--- NOTE | 2023-09-06 07:22 | P.PN_ITS ---
Subjective 2 Subjective: Peri is essentially unchanged this morning. She is still extremely weak. Norepinephrine still at 2 mcg/min. Hemoglobin is stable. Platelet count slightly higher 89,000. INR is 1.54. Serum bicarbonate essentially unchanged 39. Creatinine is stable. Potassium has gone down slightly. It is 3.1. BNP continues to trend downward. Today it is 25,000. She remains arousable but extremely weak. She has had some fairly significant watery stools overnight. Blood pressures remain soft in the 90 mmHg systolic range. Rhythm remains sinus rhythm. No further atrial fibrillation. Vitals/I&O/Wt Last Vital Signs Temp 96.7 F L 09/06/23 01:10 Pulse 74 09/06/23 06:00 Resp 10 L 09/06/23 05:25 BP 89/59 09/06/23 05:25 Pulse Ox 90 09/06/23 05:25 O2 Del Method Nasal Cannula 09/06/23 05:25 O2 Flow Rate 7 09/06/23 02:24 FiO2 50 09/06/23 00:00 09/05/23 09/06/23 09/06/23 22:59 06:59 14:59 Intake Total 300 / 1118.2606 Output Total 1475 / 1475 150 / 1625 Balance -1175 / -356.7394 -150 / -506.7394 Weight last 48 hrs Weight 149 lb Weight 149 lb 7 oz Physical Exam 2 Narrative: GENERAL: In general she is weak but arousable and upon arousing awake and alert HEENT: Exam within normal limits. NECK: Supple without jugular vein distention. The carotid upstroke is normal without bruits. BACK: Exam normal. LUNGS: Clear. HEART: Regular rate and rhythm. ABDOMEN: Benign without organomegaly or tenderness. EXTREMITIES: No edema. NEUROLOGIC: Exam normal. SKIN: Unremarkable. Multiple excoriations and bruises. Urinary Catheter Management: Hooper: Cath Placed During This Visit: yes Reason for Continuing Indwelling Catheter: Accurate Measurement of Urinary Output in Critically Ill Patients Urinary Catheter Date of Insertion: 08/25/23 Urinary Catheter Time of Insertion: 22:59 Data 09/06/23 04:43 09/06/23 04:43 A&P Assessment and plan (1) HTN (hypertension): Qualifiers: Hypertension type: primary hypertension Qualified Code(s): I10 - Essential (primary) hypertension (2) S/P angioplasty with stent: (3) Hyperlipidemia: Qualifiers: Hyperlipidemia type: unspecified Qualified Code(s): E78.5 - Hyperlipidemia, unspecified (4) ASHD (arteriosclerotic heart disease): (5) CHF (congestive heart failure): Qualifiers: Heart failure type: unspecified Heart failure chronicity: chronic Qualified Code(s): I50.9 - Heart failure, unspecified (6) Coronary artery disease: (7) Chest pain: Qualifiers: Chest pain type: precordial pain Qualified Code(s): R07.2 - Precordial pain (8) Nicotine dependence, cigarettes, with other nicotine-induced disorders: (9) Hypotension: Qualifiers: Hypotension type: unspecified hypotension type Qualified Code(s): I95.9 - Hypotension, unspecified (10) Shock: (11) Atrial fibrillation with RVR: (12) Thrombocytopenia: (13) Pulmonary hypertension: (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 She will clearly need to go to a rehab facility if she makes it out of the hospital. Attestations 2 Medical Necessity Statement*: Hospitalization for management of multiple serious medical problems and Moderate Time for a total of 30 minutes, includes reviewing past or interval history, examining/interviewing patient, placing orders, counseling patient/family/other support, updating patient/family/other support, discussing plan of care with staff, communicating with other healthcare providers and documenting encounter Diagnoses Primary hypertension I10 Hypertension type: primary hypertension S/P angioplasty with stent Z95.820 Hyperlipidemia, unspecified hyperlipidemia type E78.5 Hyperlipidemia type: unspecified ASHD (arteriosclerotic heart disease) I25.10 Acute on chronic congestive heart failure, unspecified heart failure type I50.9 Heart failure type: unspecified Heart failure chronicity: chronic Coronary artery disease I25.10 Precordial pain R07.2 Chest pain type: precordial pain Nicotine dependence, cigarettes, with other nicotine-induced disorders F17.218 Hypotension, unspecified hypotension type I95.9 Hypotension type: unspecified hypotension type Shock R57.9 Atrial fibrillation with RVR I48.91 Thrombocytopenia D69.6 Pulmonary hypertension I27.20 Diabetes 1.5, managed as type 2 E13.9 Obesity E66.9 Obesity type: due to excess calories Obesity classification: adult class 2 (BMI 35 - 39.9) Body mass index: BMI 37.0-37.9 Stage 3a chronic kidney disease N18.31 Chronic kidney disease stage: stage 3 (moderate) Chronic kidney disease stage 3 subtype: stage 3a (GFR 45-59) Chronic obstructive pulmonary disease with acute exacerbation J44.9 Chronic respiratory failure with hypoxia J96.11 EDNA (obstructive sleep apnea) G47.33
[2023-09-06] MEDS: fludrocortisone 0.1 mg Tablet 0.100000000000000006 MG PO (09:59)
[2023-09-06] MEDS: sennosides-docusate Tablet 2 TAB PO (09:59)
[2023-09-06] MEDS: amoxicillin-clav 875-125 mg Tablet 1 TAB PO ×2 (09:59→17:37)
[2023-09-06] MEDS: calcium carbonate 500 mg Chew Tablet 1000 MG PO (09:59)
[2023-09-06] MEDS: gabapentin 300 mg Capsule 900 MG PO (10:00)
--- NOTE | 2023-09-06 10:00 | PC.SOCIAL ---
IMM Update pg 2 of IMM updated and reviewed w/ patient and her daughter. Copy dated, initialed and placed in chart.
[2023-09-06] MEDS: apixaban 5 mg Tablet 2.5 MG PO ×2 (10:01→21:34)
[2023-09-06] MEDS: calcitriol 0.25 mcg Capsule PO (10:03)
[2023-09-06] MEDS: AA-Dex 4.25%-5% w/Lytes 1,000 ML with multivitamin inj 5 ML 23 ML IV (11:18)
[2023-09-06 12:30] LABS: Glucose Point of Care 141 mg/dL (70-110)
--- NOTE | 2023-09-06 13:42 | P.PN_ITS ---
Subjective 2 Subjective: Patient was seen this morning, she is alert to person, to place, not to time, she reports poor appetite, shortness of breath currently 5 L, no evidence of respiratory distress, she follows commands, but is quite drowsy this morning Vitals/I&O/Wt Last Vital Signs Temp 96.7 F L 09/06/23 08:05 Pulse 74 09/06/23 11:42 Resp 15 09/06/23 10:15 BP 116/69 09/06/23 10:15 Pulse Ox 94 09/06/23 11:42 O2 Del Method Nasal Cannula 09/06/23 08:05 O2 Flow Rate 5 09/06/23 08:05 FiO2 60 09/06/23 11:42 09/05/23 09/06/23 09/06/23 22:59 06:59 14:59 Intake Total 300 / 1118.2606 92.917 / 92.917 Output Total 1475 / 1475 150 / 1625 Balance -1175 / -356.7394 -150 / -506.7394 92.917 / 92.917 Weight last 48 hrs Weight 67.585 kg Weight 67.784 kg Physical Exam 2 Const: COMMON NORMALS: no acute distress ORIENTATION/CONSCIOUSNESS: Yes awake, Yes oriented to person and Yes oriented to place; not oriented to time Resp: COMMON NORMALS: normal respiratory effort, No retractions, No use of accessory muscles and clear to auscultation bilaterally AUSCULTATION: clear to auscultation bilaterally Cardio: COMMON NORMALS: regular rate, regular rhythm, S1 normal heart sound present and S2 normal heart sound present RATE: regular rate RHYTHM: r egular rhythm HEART SOUNDS: S1 normal heart sound present and S2 normal heart sound present GI: COMMON NORMALS: Normal to inspection, nondistended, normoactive bowel sounds present and non-tender Extremity: COMMON NORMALS: no pedal edema Neuro: SENSORIUM/ORIENTATION: Yes oriented to person, Yes oriented to place and No oriented to time Urinary Catheter Management: Hooper: Cath Placed During This Visit: yes Reason for Continuing Indwelling Catheter: Accurate Measurement of Urinary Output in Critically Ill Patients Urinary Catheter Date of Insertion: 08/25/23 Urinary Catheter Time of Insertion: 22:59 Data 09/06/23 04:43 09/06/23 04:43 A&P Assessment and plan (1) Hypotension: -Likely multifactorial - adrenal insufficiency, sepsis, acute respiratory failure -midodrine 10mg 3 times daily neck ? Wean Levophed ? Wean hydrocortisone, fludrocortisone Qualifiers: Hypotension type: unspecified hypotension type Qualified Code(s): I95.9 - Hypotension, unspecified (2) Enterocolitis: CT/CT abdomen pelvis w con* [id number] IMPRESSION: New low-density wall thickening seen through much of the colon as well as portions of small bowel raising consideration of enterocolopathy of portal hypertension, enterocolitis (either infectious/inflammatory or ischemic) , or angioedema. Mild increase in ascites which remains small. Large gallstone again noted within gallbladder. Fatty liver. -Gallbladder ultrasound IMPRESSION: 1. Extremely difficult evaluation of the RIGHT upper quadrant due to body habitus. 2. Cholelithiasis without acute cholecystitis. No bile duct dilatation. 3. Cirrhotic liver with hepatic steatosis. PLAN: -ruq us -follow LFT, lipase, ggt (3) Hypokalemia: Replace hypokalemia. Has received some magnesium. Recheck magnesium level. (4) Hypomagnesemia: Received supplementation. Recheck level. (5) Adrenal insufficiency: as above. (6) Acquired hypothyroidism: TSH 15.91. Has not been able to take her medications. Receiving stress dose steroids as above. (7) Wall motion abnormality of inferior wall of left ventricle: - History of severe coronary artery disease one-vessel disease, distal RCA treated with balloon and drug-eluting stent, back in 2019 Echocardiogram - Normal LV size with a slightly diminished ejection fraction of 50% (visual). Mild left-ventricular hypertrophy. Wall motion abnormalities as mentioned above Moderate mitral annular calcification. Normal RV size and ejection fraction There is no pericardial effusion. There are no intracardiac masses. Compared to the study from 06/27/2023, the wall motion abnormalities appear to be new Plan ? Serial EKGs, serial troponins, telemetry monitoring ? Aspirin, Plavix on hold -Given wall motion abnormalities, consulted cardiology (8) Acute hypoxic respiratory failure: -Acute hypoxic respiratory failure ? With development of acute respiratory distress syndrome -Secondary to fluid overload, pulmonary edema, systolic [place] [address], chest x-ray showing pulm vascular congestion - pneumonia, given leukocytosis elevated Pro-Reilly, CRP -Now with A-fib with RVR ? Chest x-ray shows improving pulmonary vascular congestion ? Plan -Currently on Levophed at 2 ? Currently on 5 L, BiPAP as needed ? Fluid restrictions at 1000 cc, has diuresed over 9 L negative ? Continue albumin ?Today will daily dose, 1 dose IV Lasix -monitor creatinine monitor urine output monitor potassium ?monitor fluid status, monitor creatinine, -Continue fludrocortisone, ? Continue Levophed to maintain MAP greater than 65 -Continue meropenem, continue vancomycin -Follow-up blood cultures - verapamil on hold -Continue to monitor respiratory status closely -Full code -Eliquis for DVT prophylaxis -Status is critical, prognosis is guarded (9) Pulmonary edema: (10) Fluid overload: (11) CHF (congestive heart failure): Qualifiers: Heart failure type: unspecified Heart failure chronicity: chronic Qualified Code(s): I50.9 - Heart failure, unspecified (12) Acute respiratory distress syndrome: (13) Sepsis: (14) Shock: - Possibly septic shock, given pneumonia ? Component of cardiogenic shock, given wall motion abnormalities on echocardiogram -component of adrenal insufficiency (15) Atrial fibrillation with RVR: (16) Digoxin toxicity: resolved, Digoxin levels over 3, digoxin was stopped amiodarone was stopped continue to monitor monitor potassium (17) Acute anemia: (18) Thrombocytopenia: - Patient has anemia, thrombocytopenia -Hold aspirin, Plavix, Eliquis ? Hemolytic labs, ? Repeat CBC this evening (19) Hyperbilirubinemia: Liver ultrasound no acute findings, next ?we will monitor Plan CAD: Plavix if able to tolerate, asa CHF: Currently not in exacerbation A-fib: Normally on Eliquis CKD: Creatinine 1.1 appears close to baseline. At risk of acute kidney injury with hyperkalemia, low oral intake. Hypotension. Reassess renal function. Electrolytes. Acid-base. GERD: PPI by IV at the moment. COPD: Not in exacerbation. Breathing treatments scheduled and as needed. History of HTN: This appears to be remote history, she is for the most part been having low blood pressures. Currently hypotensive. Smoking addiction: Encourage cessation. Nicotine replacement as needed. DM2: Accu-Cheks every 6 hours, insulin sliding scale. Guesses carb diet. Diabetic neuropathy: Hold off gabapentin for now due to hypotension. HLD: statin for now - plan for today, optimize nutrition, start peripheral nutrition, will wean off Levophed hold off on Lasix for today Attestations 2 Medical Necessity Statement*: Patient requires hospitalization for acute respiratory failure Diagnoses Hypotension, unspecified hypotension type I95.9 Hypotension type: unspecified hypotension type Enterocolitis K52.9 Hypokalemia E87.6 Hypomagnesemia E83.42 Adrenal insufficiency E27.40 Acquired hypothyroidism E03.9 Wall motion abnormality of inferior wall of left ventricle R94.30 Acute hypoxic respiratory failure J96.01 Pulmonary edema J81.1 Fluid overload E87.70 Acute on chronic congestive heart failure, unspecified heart failure type I50.9 Heart failure type: unspecified Heart failure chronicity: chronic Acute respiratory distress syndrome J80 Sepsis A41.9 Shock R57.9 Atrial fibrillation with RVR I48.91 Digoxin toxicity T46.0X1A Acute anemia D64.9 Thrombocytopenia D69.6 Hyperbilirubinemia E80.6
[2023-09-06] MEDS: insulin lispro 100 unit/1 mL SUBCUT (13:55)
[2023-09-06] MEDS: hydrocortisone 10 mg Tablet 5 MG PO (13:55)
--- NOTE | 2023-09-06 14:10 | XRR_ITS ---
PROCEDURE INFORMATION: Exam: XR Chest Exam date and time: 09/06/2023 1:55 PM Age: 67 years old Clinical indication: Shortness of breath; Additional info: SOB TECHNIQUE: Imaging protocol: Radiologic exam of the chest. Views: 1 view. COMPARISON: CR XR chest 1V portable [id number] 09/05/2023 5:57 AM FINDINGS: Tubes, catheters and devices: PICC from the left arm with the tip in the distal SVC in satisfactory position. Lungs: Both lungs demonstrate chronic interstitial coarsening. No lung mass or infiltrate. Pleural spaces: Unremarkable. No pleural effusion. No pneumothorax. Heart/Mediastinum: Unremarkable. No cardiomegaly. Bones/joints: Unremarkable. XR/XR chest 1V portable [id number] IMPRESSION: 1. No acute findings. 2. Chronic lung changes noted
--- NOTE | 2023-09-06 14:12 | USCV_ITS ---
Peri Cid Age: 67 Gender: F : 1955 Exam Date: 09/06/2023 16:55 Ordering Phys: Danielito Reece MD Technologist: Raul Singh Exam Location: [facility] [place] Indication: flash pulmonary edema BP: 118 / 91 HR: 78 Rhythm: Sinus Technical Quality: Adequate MEASUREMENTS (Male / Female) Normal Values 2D ECHO LVOT Diameter 2.0 cm LV Ejection Fraction MOD 2C 55.9 % LV Ejection Fraction 2C AL 53.8 % LA Diameter 3.1 cm RA Systolic Volume 4C AL 34.5 ml RA Systolic Volume 4C MOD 34.3 ml Aorta at Sinotubular Diameter 2.6 cm M-MODE LA Ao Ratio MM 1.2 AV Cusp Separation MM 1.4 cm FINDINGS Left Ventricle Normal LV size with a diminished ejection fraction of around 45 to 50%. Mild hypokinesia of the basal posterior segment. Moderate diffuse hypokinesia of the inferior wall segments Right Ventricle The right ventricle is normal in size and function. Right Atrium The right atrium is normal in size. Left Atrium The left atrium is normal in size. Mitral Valve Moderate mitral annular calcification. Aortic Valve No gross abnormalities noted. Tricuspid Valve No gross abnormalities noted Pulmonic Valve Pulmonic valve not well visualized. Pericardium Normal pericardium without effusion. Aorta Normal ascending aorta dimension. IVC Inferior vena cava not visualized. CONCLUSIONS Normal LV size with a diminished ejection fraction of around 45 to 50%. Multiple wall motion abnormalities as mentioned above Moderate mitral annular calcification. There is no pericardial effusion. There are no intracardiac masses. Compared to the study from 08/26/2023, there may not be a significant change Dr Taylor Grande MD FACC (Electronically Signed) Final Date: 06 September 2023 18:48 S
[2023-09-06 15:03] LABS: ABG PCO2 55.4 mmHg (35-45); Arterial Blood Gas Hematocrit 27.2 % (37-47); Base Excess ABG 18.3 mmol/L (-2.0-2.0); Blood Gas Allen Test Pos; Blood Gas Operator Identificat glc; Blood Gas Sample Site Radial, right; Blood Gas Sample Type Arterial; HCO3 ABG 43.5 mmol/L (22-26); Oxygen Device BIPAP; PO2 ABG 70.5 mmHg (80.0-100.0); PO2 FiO2 Ratio Arterial Blood 0
[2023-09-06] MEDS: albumin 25 G/100 ML BAG 60 G IV ×2 (15:19→21:34)
[2023-09-06] MEDS: FUROsemide 10 mg/mL SDV 4mL 40 MG IVP (15:19)
[2023-09-06 15:20] LABS: Blood Urea Nitrogen 23 mg/dL (8-23); Calcium 9.2 mg/dL (8.5-10.5); Carbon Dioxide 38 mmol/L (22-29); Chloride 92 mmol/L (98-107); Creatinine Clr Calc Pharmacy 64.4781; Glomerular Filtration Rate 99.7 mL/min (90-130); Glucose 99 mg/dL (65-115); Osmolality Calculated 294 mOsm/kg (285-295); Sodium 140 mmol/L (136-145)
[2023-09-06 17:37] LABS: Glucose Point of Care 66 mg/dL (70-110)
[2023-09-06] MEDS: gabapentin 300 mg Capsule 600 MG PO (17:37)
[2023-09-06 17:44] LABS: C.Diff PCR (Lab) NEGATIVE (Negative)
[2023-09-06] MEDS: norepinephrine 4 MG/250 ML BAG 22.5 MG IV (19:12)
[2023-09-06] MEDS: pantoprazole 40 mg SDV IVP (21:32)
[2023-09-06] MEDS: atorvastatin 40 mg Tablet 20 MG PO (21:32)
[2023-09-06] MEDS: mirtazapine 30 mg Tablet PO (21:33)
[2023-09-07] VITALS (86 sets, daily range): BP systolic 74–120; BP diastolic 44–71; PULSE 72–97; RESP 6–26; TEMP 35.5–36.6; O2SAT 73–100
[2023-09-07 00:16] LABS: Glucose Point of Care 127 mg/dL (70-110)
[2023-09-07] MEDS: cyclobenzaprine 10 mg Tablet 5 MG PO (00:47)
[2023-09-07] MEDS: HYDROcodone-acetaminophen 5-325 mg Tablet 1 TAB PO ×3 (00:47→09:28)
[2023-09-07] MEDS: magnesium lactate 84 mg Tablet PO ×2 (00:47→11:44)
[2023-09-07] MEDS: ipratropium-albuterol 3 mL Neb INHALATION ×4 (02:28→19:52)
[2023-09-07] MEDS: midodrine 5 mg TABLET 10 MG PO ×3 (02:52→18:25)
[2023-09-07 04:40] LABS: ABG PCO2 54.6 mmHg (35-45); Arterial Blood Gas Hematocrit 23.5 % (37-47); Base Excess ABG 16.9 mmol/L (-2.0-2.0); Blood Gas Allen Test Pos; Blood Gas Operator Identificat JB; Blood Gas Sample Site Radial, right; Blood Gas Sample Type Arterial; Oxygen Device OXY MASK; PO2 ABG 55.4 mmHg (80.0-100.0)
[2023-09-07] MEDS: hydrocortisone 10 mg Tablet PO (05:42)
[2023-09-07] MEDS: folic acid 1 mg Tablet PO (05:43)
[2023-09-07] MEDS: levothyroxine 125 mcg Tablet PO (05:43)
[2023-09-07 05:45] LABS: Basophils % 0.1 %; Eosinophils # 0.1 10^3/uL (0.0-0.8); Eosinophils % 1.1 %; Hematocrit 22.7 % (36-47); Lymphocytes # 1.9 10^3/uL (0.8-4.8); Lymphocytes % 23.1 %; Mean Corpuscular Hemoglobin 31.3 pg (27-33); Mean Corpuscular Volume 104.6 fl (85-98); Mean Platelet Volume 13.9 fL (7.4-10.4); Monocytes # 0.3 10^3/uL (0.2-0.9); Monocytes % 3.6 %; Neutrophils # 5.81 10^3/uL (1.8-7.7); Neutrophils % 71.7 %; Nucleated Red Blood Cells % 0 %; Platelet Count 72 10^3/cmm (157-399); Red Blood Count 2.17 10^6/uL (3.85-5.65); Red Cell Distribution Width 15.3 % (12.1-15.1)
[2023-09-07] MEDS: albumin 25 G/100 ML BAG 60 G IV ×3 (05:47→23:16)
[2023-09-07 06:11] LABS: Alanine Aminotransferase 12 U/L (0-33); Albumin Level 4.2 g/dL (3.5-5.2); Alkaline Phosphatase 90 U/L (35-105); Aspartate Amino Transferase 35 U/L (0-32); Blood Urea Nitrogen 22 mg/dL (8-23); Calcium 8.8 mg/dL (8.5-10.5); Carbon Dioxide 37 mmol/L (22-29); Chloride 89 mmol/L (98-107); Creatinine Clr Calc Pharmacy 64.2261; Globulin 1.3 g/dL (1.3-4.6); Glomerular Filtration Rate 99.7 mL/min (90-130); Glucose 345 mg/dL (65-115); Magnesium 2.4 mg/dL (1.7-2.3); Osmolality Calculated 299 mOsm/kg (285-295); Phosphorus 4.4 mg/dL (2.5-4.5); Sodium 136 mmol/L (136-145); Total Bilirubin 0.9 mg/dL (0.15-1.2); Total Protein 5.5 g/dL (6.6-8.7)
[2023-09-07 06:16] LABS: Glucose Point of Care 103 mg/dL (70-110)
[2023-09-07 06:20] LABS: NT Pro B Type Natriuretic Pept 24283 pg/mL (0-125)
--- NOTE | 2023-09-07 07:00 | XRR_ITS ---
PROCEDURE INFORMATION: Exam: XR Chest Exam date and time: 09/07/2023 2:55 PM Age: 67 years old Clinical indication: Shortness of breath; Additional info: SOB TECHNIQUE: Imaging protocol: Radiologic exam of the chest. Views: 1 view. COMPARISON: CR XR chest 1V portable [id number] 09/06/2023 1:55 PM FINDINGS: Tubes, catheters and devices: Unchanged left arm PICC terminating in the SVC. Lungs: Increased bilateral pulmonary edema and/or pneumonitis probably superimposed upon pulmonary fibrosis. Pleural spaces: Unremarkable. No pleural effusion. No pneumothorax. Heart/Mediastinum: Unremarkable. No cardiomegaly. Diaphragm: Unchanged mild elevation of the right hemidiaphragm. Bones/joints: Unchanged mild scoliosis with mild and moderate multilevel spondylosis. XR/XR chest 1V portable [id number] IMPRESSION: Increased bilateral pulmonary edema and/or pneumonitis probably superimposed upon fibrosis.
--- NOTE | 2023-09-07 09:07 | PM.PN ---
Subjective Subjective: Cardiology coverage Patient with multiple medical problems. Intermittent atrial fibrillation with rapid ventricular rate, elevated systolic dysfunction, decompensated heart failure, status post hypoxic respiratory failure, anemia/thrombocytopenia, hypotension requiring vasopressors, multiple electrolyte abnormalities, hypoadrenalism, history of hypothyroidism, etc. She was on amiodarone for the atrial fibrillation but because of the elevated liver enzymes, this had to be discontinued. Because of the hypotension, the verapamil had to be discontinued. There was significant drop in the hemoglobin this morning. For this reason, the Eliquis was discontinued. Aspirin and Plavix are on hold because of the thrombocytopenia and extensive ecchymosis Patient denies any chest pain. She apparently was more short of breath last night requiring 15 L of oxygen by nasal cannula. The oxygen is slowly being weaned down. No fever or chills. No cough. Medications: Medication Review Details: Current Medications Acetaminophen (Acetaminophen 325 Mg Tablet) 650 mg PO Q6H PRN PRN Reason: Mild/Mod Pain Or Temp >/= 101 Last Admin: 09/01/23 21:32 Dose: 650 mg Hydrocodone Bitart/Acetaminophen (Hydrocodone-Acetaminophen 5-325 Mg Tablet) 1 tab PO Q4H PRN PRN Reason: MODERATE PAIN Last Admin: 09/07/23 05:42 Dose: 1 tab Albuterol/Ipratropium (Ipratropium-Albuterol 3 Ml Neb) 3 ml INHALATION Q6H PRN PRN Reason: SHORTNESS OF BREATH Albuterol/Ipratropium (Ipratropium-Albuterol 3 Ml Neb) 3 ml INHALATION Q6H.RESP [facility] Last Admin: 09/07/23 08:36 Dose: 3 ml Amoxicillin/Clavulanate Potassium (Amoxicillin-Clav 875-125 Mg Tablet) 1 tab PO BID [facility]; Protocol Last Admin: 09/06/23 17:37 Dose: 1 tab Aspirin (Aspirin 81 Mg Ec Tablet) 81 mg PO DAILY [facility] Last Admin: 09/02/23 10:01 Dose: 81 mg Atorvastatin Calcium (Atorvastatin 40 Mg Tablet) 20 mg PO BEDTIME [facility] Last Admin: 09/06/23 21:32 Dose: 20 mg Calcitriol (Calcitriol 0.25 Mcg Capsule) 0.25 mcg PO MoWeFr [facility] Last Admin: 09/06/23 10:03 Dose: 0.25 mcg Calcium Carbonate (Calcium Carbonate 500 Mg Chew Tablet) 1,000 mg PO DAILY [facility] Last Admin: 09/06/23 09:59 Dose: 1,000 mg Clopidogrel Bisulfate (Clopidogrel 75 Mg Tablet) 75 mg PO DAILY [facility] Last Admin: 09/02/23 10:01 Dose: 75 mg Cyclobenzaprine HCl (Cyclobenzaprine 10 Mg Tablet) 5 mg PO TID PRN PRN Reason: MUSCLE SPASMS Last Admin: 09/07/23 00:47 Dose: 5 mg Fludrocortisone Acetate (Fludrocortisone 0.1 Mg Tablet) 0.1 mg PO DAILY [facility] Last Admin: 09/06/23 09:59 Dose: 0.1 mg Folic Acid (Folic Acid 1 Mg Tablet) 1 mg PO QAM [facility] Last Admin: 09/07/23 05:43 Dose: 1 mg Furosemide (Furosemide 10 Mg/Ml Sdv 4ml) 40 mg IVP ONCE ONE Stop: 09/07/23 08:48 Gabapentin (Gabapentin 300 Mg Capsule) 900 mg PO DAILY [facility] Last Admin: 09/06/23 10:00 Dose: 900 mg Gabapentin (Gabapentin 300 Mg Capsule) 600 mg PO QPM [facility] Last Admin: 09/06/23 17:37 Dose: 600 mg Hydrocortisone (Hydrocortisone 10 Mg Tablet) 10 mg PO QAM [facility] Last Admin: 09/07/23 05:42 Dose: 10 mg Dextrose (D5w) 500 mls @ 0 mls/hr IV ONCE PRN; Protocol PRN Reason: Adult Acute Hypoglycemia Prot Dextrose (D10w) 125 mls @ 750 mls/hr IV PRN PRN; Protocol PRN Reason: Adult Acute Hypoglycemia Nursing Protocol Dextrose (D10w) 250 mls @ 1,000 mls/hr IV PRN PRN; Protocol PRN Reason: Adult Acute Hypoglycemia Nursing Protocol norepinephrine (Levophed) 4 mg in 250 mls @ 0 mls/hr IV .Q0M [facility]; Protocol Last Titration: 09/07/23 06:08 Dose: 4 mcg/min, 15 mls/hr Multivitamins 5 ml/ AA-Dex 4. (25%-5% w/Lytes) 1,005 mls @ 83 mls/hr IV .Q12H7M [facility]; Protocol Last Infusion: 09/07/23 04:31 Dose: 63 mls/hr fat emulsions 20% (Intralipid 20%) 100 mls @ 8.333 mls/hr IV Q24H [facility] Last Infusion: 09/06/23 23:21 Dose: Infused Dextrose (D5w) 500 mls @ 0 mls/hr IV ONCE PRN; Protocol PRN Reason: Adult Acute Hypoglycemia Prot Dextrose (D10w) 125 mls @ 750 mls/hr IV PRN PRN; Protocol PRN Reason: Adult Acute Hypoglycemia Nursing Protocol Dextrose (D10w) 250 mls @ 1,000 mls/hr IV PRN PRN; Protocol PRN Reason: Adult Acute Hypoglycemia Nursing Protocol Insulin Human Lispro (Insulin Lispro 100 Unit/1 Ml) 0 unit SUBCUT Q6H [facility]; Protocol Last Admin: 09/07/23 06:14 Dose: Not Given Lanolin (Lanolin Oint 7 Gm) 1 applic TOPICAL PRN PRN PRN Reason: DRYNESS Last Admin: 08/31/23 05:01 Dose: 1 applic Levothyroxine Sodium (Levothyroxine 125 Mcg Tablet) 125 mcg PO QAM [facility] Last Admin: 09/07/23 05:43 Dose: 125 mcg Magnesium Lactate (Magnesium Lactate 84 Mg Tablet) 84 mg PO Q12H [facility] Last Admin: 09/07/23 00:47 Dose: 84 mg Metoclopramide HCl (Metoclopramide 5 Mg/Ml Sdv 2 Ml) 5 mg IVP Q6H PRN PRN Reason: NAUSEA AND VOMITING Last Admin: 09/01/23 17:39 Dose: 5 mg Midodrine (Midodrine 5 Mg Tablet) 10 mg PO Q8H [facility] Last Admin: 09/07/23 02:52 Dose: 10 mg Mirtazapine (Mirtazapine 30 Mg Tablet) 30 mg PO BEDTIME [facility] Last Admin: 09/06/23 21:33 Dose: 30 mg Nicotine (Nicotine 21 Mg Patch) 1 patch TRANSDERMA DAILY PRN PRN Reason: WITHDRAWAL Nicotine Polacrilex (Nicotine 4 Mg Lozenge) 4 mg MUCOUS MEM Q4H PRN PRN Reason: NICOTINE CRAVINGS Ondansetron HCl (Ondansetron 2 Mg/Ml Sdv 2 Ml) 4 mg IVP Q8H PRN PRN Reason: vomiting, or N/V if npo Last Admin: 09/01/23 09:57 Dose: 4 mg Pantoprazole Sodium (Pantoprazole 40 Mg Sdv) 40 mg IVP Q24H [facility] Last Admin: 09/06/23 21:32 Dose: 40 mg Polyethylene Glycol (Polyethylene Glycol 3350 Pkt 17 Gm) 17 gm PO DAILY [facility] Last Admin: 09/06/23 09:46 Dose: Not Given Senna/Docusate Sodium (Sennosides-Docusate Tablet) 2 tab PO DAILY [facility] Last Admin: 09/06/23 09:59 Dose: 2 tab Sodium Chloride (Sodium Chloride 0.9% 100 Ml Bag) 50 ml IV PRN PRN PRN Reason: Blood transfusion prime and flush Stop: 09/08/23 08:45 Vitals/I&O/Wt Last Vital Signs Temp 97.7 F 09/07/23 03:30 Pulse 97 09/07/23 09:00 Resp 11 L 09/07/23 09:00 BP 119/64 09/07/23 09:00 Pulse Ox 82 L 09/07/23 09:00 O2 Del Method Oxymask 09/07/23 08:36 O2 Flow Rate 12 09/07/23 08:36 FiO2 50 09/06/23 16:10 09/06/23 09/07/23 09/07/23 22:59 06:59 14:59 Intake Total 916.358 / 1009.275 651.875 / 1661.150 100 / 100 Output Total 800 / 800 200 / 1000 Balance 116.358 / 209.275 451.875 / 661.150 100 / 100 Weight last 48 hrs Weight 147 lb 11.355 oz Weight 149 lb Physical Exam Narrative: GENERAL: The patient is alert and oriented to place and person. Not in any acute distress. Chronically ill looking. HEENT: Moderate pallor, no icterus or lymphadenopathy.Oral cavity: There are no mucous membrane lesions. NECK: Trachea appears to be central. No masses noted. No JVD or thyromegaly appreciated. RESPIRATORY: Chest is symmetrical. No intercostals muscle retraction or any accessory muscle activation. There is no chest wall tenderness. Breath sounds are heard bilaterally. The breath sounds are diminished in the bases. Occasional coarse crackles BREASTS: Deferred. HEART: The heart sounds are normal. No S3 or S4. Short systolic murmur in the lower sternal border. No diastolic murmurs. No pericardial rub ABDOMEN: No vessel pulsations or distention. No tenderness. No organomegaly appreciated. Bowel sounds are normally heard. : Deferred. RECTAL: Deferred. LYMPHATIC: No lymphadenopathy noted in the neck. EXTREMITIES: No edema or cyanosis. No clubbing. MUSCULOSKELETAL: No acute joint deformities or swelling SKIN: Extensive superficial ecchymosis bilaterally in the extremities NEUROPSYCHIATRIC: The patient is alert and oriented x2. No focal motor deficits. Urinary Catheter Management: Hooper: Cath Placed During This Visit: yes Reason for Continuing Indwelling Catheter: Accurate Measurement of Urinary Output in Critically Ill Patients Urinary Catheter Date of Insertion: 08/25/23 Urinary Catheter Time of Insertion: 22:59 Data 09/07/23 04:50 09/07/23 04:50 Other Labs: Laboratory Last Values WBC 8.10 10^3/uL (3.29-11.43) 09/07/23 04:50 RBC 2.17 10^6/uL (3.85-5.65) L 09/07/23 04:50 Hgb 6.80 g/dL (11.27-16.99) L 09/07/23 04:50 Hct 22.7 % (36-47) L 09/07/23 04:50 MCV 104.6 fl (85-98) H 09/07/23 04:50 MCH 31.3 pg (27-33) 09/07/23 04:50 MCHC 30.0 g/dL (30-55) 09/07/23 04:50 RDW 15.3 % (12.1-15.1) H 09/07/23 04:50 Plt Count 72 10^3/cmm (157-399) L 09/07/23 04:50 MPV 13.9 fL (7.4-10.4) H 09/07/23 04:50 Neut % (Auto) 71.7 % 09/07/23 04:50 Lymph % (Auto) 23.1 % 09/07/23 04:50 [place] % (Auto) 3.6 % 09/07/23 04:50 Eos % (Auto) 1.1 % 09/07/23 04:50 Baso % (Auto) 0.1 % 09/07/23 04:50 Neut # (Auto) 5.81 10^3/uL (1.8-7.7) 09/07/23 04:50 Lymph # (Auto) 1.9 10^3/uL (0.8-4.8) 09/07/23 04:50 [place] # (Auto) 0.3 10^3/uL (0.2-0.9) 09/07/23 04:50 Eos # (Auto) 0.1 10^3/uL (0.0-0.8) 09/07/23 04:50 Baso # (Auto) 0.0 10^3/uL (0.0-0.1) 09/07/23 04:50 Nucleated RBC % (auto) 0 % 09/07/23 04:50 Nucleated RBCs # 0.0 /100WBC 09/07/23 04:50 Peripher Smr Path Cons Sent for review 09/03/23 15:14 ESR < 1 mm/hr (0-15) 08/26/23 03:30 Haptoglobin 76.0 mg/L (30-200) 09/03/23 04:40 PT 19.00 SECONDS (12.1-14.9) H 09/06/23 04:43 INR 1.54 (0.8-1.2) H 09/06/23 04:43 APTT 36.7 SECONDS (23.9-36.7) 09/03/23 15:14 Fibrinogen 163 mg/dL (174-498) L 09/03/23 15:14 D-Dimer 3.51 ug/mLFEU (0-0.59) H 09/03/23 15:14 Specimen Type Arterial 09/07/23 04:26 Sample Site Radial, right 09/07/23 04:26 ABG pH 7.50 (7.35-7.45) H 09/07/23 04:26 ABG pCO2 54.6 mmHg (35-45) H 09/07/23 04:26 ABG pO2 55.4 mmHg (80.0-100.0) L 09/07/23 04:26 ABG PO2/FiO2 Ratio 0 09/06/23 14:52 ABG HCO3 42.0 mmol/L (22-26) H 09/07/23 04:26 ABG O2 Saturation 89.2 09/01/23 14:53 ABG Base Excess 16.9 mmol/L (-2.0-2.0) H 09/07/23 04:26 Higinio Test Pos 09/07/23 04:26 VBG pH 7.35 (7.32-7.42) 08/25/23 21:27 VBG pCO2 42.1 mmHg (41-51) 08/25/23 21: VBG pO2 28.9 mmHg (25-40) 08/25/23 21: VBG HCO3 23.2 mmol/L (24-28) L 08/25/23 21: VBG Base Excess -2.4 mmol/L (-3.0-3.0) 08/25/23 21: VBG Hematocrit 39.4 % (37-47) 08/25/23 21: A-a O2 Gradient 42.3 mmHg (5-10) H 09/01/23 14:53 Hematocrit 23.5 % (37-47) L 09/07/23 04:26 Hgb O2 Saturation 87.8 % (95-100) L 09/01/23 14:53 Carboxyhemoglobin 1.1 %THgb (0.4-20.1) 09/01/23 14:53 Methemoglobin 0.5 % (0.4-1.5) 09/01/23 14:53 Total Hemoglobin 10.0 g/dL (12-16) L 09/01/23 14:53 Sodium 137.0 mmol/L (131-143) 09/01/23 14:53 Potassium 2.7 mmol/L (3.5-5.0) L 09/01/23 14:53 Glucose 138.0 mg/dL (70-115) H 09/01/23 14:53 Ionized Calcium 1.1 mmol/L (1.1-1.4) 09/01/23 14:53 O2 Delivery Device Oxy mask 09/07/23 04:26 O2 Liters/Min 12.0 % 09/07/23 04:26 FiO2 50.0 % 09/06/23 14:52 Team Member ID [email or web address] 09/07/23 04:26 Sodium 136 mmol/L (136-145) 09/07/23 04:50 Potassium 4.0 mmol/L (3.5-5.1) 09/07/23 04:50 Chloride 89 mmol/L (98-107) L 09/07/23 04:50 Carbon Dioxide 37 mmol/L (22-29) H 09/07/23 04:50 Anion Gap 14.0 (5-19) 09/07/23 04:50 BUN 22 mg/dL (8-23) 09/07/23 04:50 Creatinine 0.6 mg/dL (0.5-0.9) 09/07/23 04:50 GFR Calculation 99.7 mL/min (90-130) 09/07/23 04:50 Glucose 345 mg/dL (65-115) H 09/07/23 04:50 POC Glucose 103 mg/dL (70-110) 09/07/23 06:13 Calculated Osmolality 299 mOsm/kg (285-295) H 09/07/23 04:50 Lactic Acid 0.8 mmol/L (0.5-2.2) 08/26/23 08:58 Lactic Acid (Sepsis) 1.7 mmol/L (0.5-2.2) 08/25/23 19:43 Lactate 1.6 mmol/L (0.5-2.2) 09/06/23 04:43 Calcium 8.8 mg/dL (8.5-10.5) 09/07/23 04:50 Phosphorus 4.4 mg/dL (2.5-4.5) 09/07/23 04:50 Magnesium 2.4 mg/dL (1.7-2.3) H 09/07/23 04:50 Iron 63 ug/dL (37-145) 09/03/23 04:40 Ferritin 560 ng/mL (15-150) H 09/03/23 04:40 Total Bilirubin 0.9 mg/dL (0.15-1.2) 09/07/23 04:50 Direct Bilirubin 1.00 mg/dL (0.00-0.30) H 09/02/23 03:20 Indirect Bilirubin 2.60 09/02/23 03:20 GGT 76 U/L (5-36) H 09/02/23 03:20 AST 35 U/L (0-32) H 09/07/23 04:50 ALT 12 U/L (0-33) 09/07/23 04:50 Alkaline Phosphatase 90 U/L (35-105) 09/07/23 04:50 Lactate Dehydrogenase 447 U/L (135-214) H 09/03/23 04:40 Creatine Kinase 25 U/L (26-192) L 09/03/23 04:40 Troponin T Baseline 30 ng/L (0-10) H 08/27/23 09:22 Troponin T 120 Minute 38.12 ng/L (0-10) H 08/27/23 11:33 Delta Troponin T 8.12 ABS# (0-10) 08/27/23 11:33 Troponin T Hi Sens 6Hr 33.09 ng/L (0-10) H 08/27/23 15:22 Troponin T Hi Sens 6Hr Delta 3.09 ng/L (0-12) 08/27/23 15:22 C-Reactive Protein 10.1 mg/L (0.0-4.9) H 09/06/23 04:43 NT-Pro-B Natriuret Pep 42104 pg/mL (0-125) H 09/07/23 04:50 Total Protein 5.5 g/dL (6.6-8.7) L 09/07/23 04:50 Albumin 4.2 g/dL (3.5-5.2) 09/07/23 04:50 Globulin 1.3 g/dL (1.3-4.6) 09/07/23 04:50 Lipase 5 U/L (13-60) L 09/02/23 03:20 Vitamin B12 530 pg/mL (232-1245) 08/26/23 07:00 Folate 17.2 ng/mL (4.8-37.3) 08/25/23 21:27 Procalcitonin 0.44 ng/mL (0-0.5) 09/06/23 04:43 TSH 15.91 uIU/mL (0.27-4.20) H 08/25/23 17:15 Free T4 1.46 ng/dL (0.82-1.77) 08/26/23 07:00 Free T3 0.7 PG/ML (2.0-4.4) L 08/26/23 07:00 Random Cortisol 41.77 ug/dL (2.47-19.5) H 09/01/23 09:27 Urine Color Dark yellow (Yellow) 08/25/23 17:40 Urine Appearance Clear (CLEAR) 08/25/23 17:40 Urine pH 5 (5-7) 08/25/23 17:40 Ur Specific [place] 1.020 (1.005-1.030) 08/25/23 17:40 Urine Protein Trace (Negative) 08/25/23 17:40 Urine Glucose (UA) Norm (Normal) 08/25/23 17:40 Urine Ketones 1+ (Negative) H 08/25/23 17:40 Urine Blood Neg (Negative) 08/25/23 17:40 Urine Nitrate Negative (Negative) 08/25/23 17:40 Urine Bilirubin 2+ (Negative) H 08/25/23 17:40 Urine Urobilinogen 4+ mg/dL (Negative) H 08/25/23 17:40 Ur Leukocyte Esterase Negative (Negative) 08/25/23 17:40 Urine RBC None /hpf (0-2) 08/25/23 17:40 Urine WBC 0-4 /hpf (0-5) H 08/25/23 17:40 Ur Squamous Epith Cells None /hpf (0-5) 08/25/23 17:40 Amorphous Sediment Not Reportable 08/25/23 17:40 Urine Bacteria Trace /hpf (NONE) 08/25/23 17:40 Vancomycin Trough 29.9 ug/mL (10-15) H* 09/01/23 09:27 Digoxin 1.1 ng/mL (0.6-1.2) 09/03/23 04:40 Serum Ketones Negative (Negative) 08/25/23 21:27 IgA 629 mg/dL (70-320) H 08/25/23 21:27 BRENT Nuclear Membr Pat Nuclear, speckled A 08/26/23 08:58 BRENT IFA Animal Tis Ttr 1:40 titer H 08/26/23 08:58 BRENT IFA Animal Tis Res Positive (NEGATIVE) A 08/26/23 08:58 MINA-1 Antibody <1.0 neg AI (<1.0 NEG) 08/26/23 08:58 SS-A Antibody <1.0 neg AI (<1.0 NEG) 08/26/23 08:58 SS-B Antibody <1.0 neg AI (<1.0 NEG) 08/26/23 08:58 Sm (Arias) Antibody <1.0 neg AI (<1.0 NEG) 08/26/23 08:58 TOBACCO CHECKOUT CLERK Antibody <1.0 neg AI (<1.0 NEG) 08/26/23 08:58 Scl-70 Antibody <1.0 neg AI (<1.0 NEG) 08/26/23 08:58 Anti-ds DNA IgG (Crith) Negative (NEGATIVE) 08/26/23 08:58 Centromere B Antibody <1.0 neg AI (<1.0 NEG) 08/26/23 08:58 Tiss Transglutamin IgG <1.0 U/mL 08/25/23 21:27 Tiss Transglutamin IgA <1.0 U/mL 08/25/23 21:27 Thyroid Peroxidase Ab <1 IU/mL (<9) 08/26/23 08:58 Anti-Gliadin IgG JENNA Res 1.8 U/mL 08/25/23 21:27 Anti-Gliad IgA JENNA Res 2.3 U/mL 08/25/23 21:27 Complement C3c 62 mg/dL (83-193) L 08/26/23 08:58 Complement C4c 41 mg/dL (15-57) 08/26/23 08:58 CH50 Classical Pathway 27 U/mL (31-60) L 08/26/23 08:58 Adenovirus (PCR) Not detected (NOT DETECT) 08/26/23 15:00 C. pneumoniae DNA (PCR) Not detected (NOT DETECT) 08/26/23 15:00 C. difficile (PCR) Negative (Negative) 09/06/23 16:30 Coronavirus 229E (PCR) Not detected (NOT DETECT) 08/26/23 15:00 CMV Culture Source blood 08/26/23 08:58 CMV IgG Ab >10.00 U/mL H 08/25/23 21:27 CMV IgM Ab <30.00 AU/mL 08/25/23 21:27 CMV DNA Quant PCR Not detected IU/mL 08/26/23 08:58 CMV Qnt PCR Interp Not detected Log IU/mL 08/26/23 08:58 Hepatitis A IgM Ab Non-reactive (Nonreactive) 08/31/23 04:10 Hep Bs Antigen Non-reactive (Nonreactive) 08/31/23 04:10 Hep B Core IgM Ab Non-reactive (Nonreactive) 08/31/23 04:10 Hepatitis C Antibody Non-reactive (Nonreactive) 08/31/23 04:10 Human Metapneumovir PCR Not detected (NOT DETECT) 08/26/23 15:00 Influenza A (H1) PCR Not detected (NOT DETECT) 08/26/23 15:00 Influ A (H1/09) PCR Not detected (NOT DETECT) 08/26/23 15:00 Influenza A (H3) PCR Not detected (NOT DETECT) 08/26/23 15:00 Influenza Type A (PCR) Not detected (NOT DETECT) 08/26/23 15:00 Influenza Type B (PCR) Not detected (NOT DETECT) 08/26/23 15:00 M. pneumoniae (PCR) Not detected (NOT DETECT) 08/26/23 15:00 Parainfluenza 1 (PCR) Not detected (NOT DETECT) 08/26/23 15:00 Parainfluenza 2 (PCR) Not detected (NOT DETECT) 08/26/23 15:00 Parainfluenza 3 (PCR) Not detected (NOT DETECT) 08/26/23 15:00 Parainfluenza 4 (PCR) Not detected (NOT DETECT) 08/26/23 15:00 RSV Type A (PCR) Not detected (NOT DETECT) 08/26/23 15:00 RSV Type B (PCR) Not detected (NOT DETECT) 08/26/23 15:00 Entero/Rhino (PCR) Not detected (NOT DETECT) 08/26/23 15:00 SARS-CoV-2 (PCR) Not detected (NOT DETECT) 08/26/23 15:00 Micro: Microbiology 09/06/23 16:30 Stool Lactoferrin - Final Stool Occult Blood (FIT) - Final Other data: Echocardiogram on 09/06/2023 Normal LV size with a diminished ejection fraction of around 45 to 50%. Multiple wall motion abnormalities as mentioned above Moderate mitral annular calcification. There is no pericardial effusion. There are no intracardiac masses. Compared to the study from 08/26/2023, there may not be a significant change A&P Assessment and plan (1) Atrial fibrillation with RVR: Currently the patient is in sinus rhythm. Because of the hypotension, recent dig toxicity, we may continue to hold off on any medications at this point. Continue close monitoring. (2) Hypotension: Patient is Levophed 4 mics per KG per minute. The dose may be titrated to maintain the mean pressure around 70 mmHg. Qualifiers: Hypotension type: unspecified hypotension type Qualified Code(s): I95.9 - Hypotension, unspecified (3) CHF (congestive heart failure): May be treated with as needed Lasix. Qualifiers: Heart failure type: unspecified Heart failure chronicity: chronic Qualified Code(s): I50.9 - Heart failure, unspecified (4) ASHD (arteriosclerotic heart disease): Patient currently has no chest pain. We may consider doing some form of noninvasive cardiac workup, when she is little more stable. May continue on the current measures. (5) Thrombocytopenia: Etiology is not clear. The platelet count is slowly improving. (6) Wall motion abnormality of inferior wall of left ventricle: May suggest underlying coronary disease. Patient is currently asymptomatic. Consider doing a Myocardial perfusion imaging, once her clinical status is more stable. Plan Possible blood transfusion today to maintain hemoglobin around 9. Continue close monitoring. Based on the clinical progress, further recommendations will be made Attestations Medical Necessity Statement*: Patient requires continued hospital stay for close monitoring and further management Coding Level of Care Code 36127 Diagnoses Atrial fibrillation with RVR I48.91 Hypotension, unspecified hypotension type I95.9 Hypotension type: unspecified hypotension type Acute on chronic congestive heart failure, unspecified heart failure type I50.9 Heart failure type: unspecified Heart failure chronicity: chronic ASHD (arteriosclerotic heart disease) I25.10 Thrombocytopenia D69.6 Wall motion abnormality of inferior wall of left ventricle R94.30 Time Spent (min) 40
[2023-09-07] MEDS: FUROsemide 10 mg/mL SDV 4mL 40 MG IVP ×2 (09:27→17:22)
[2023-09-07] MEDS: fludrocortisone 0.1 mg Tablet 0.100000000000000006 MG PO (09:28)
[2023-09-07] MEDS: amoxicillin-clav 875-125 mg Tablet 1 TAB PO ×2 (09:28→17:23)
[2023-09-07] MEDS: gabapentin 300 mg Capsule 900 MG PO (09:28)
[2023-09-07] MEDS: calcium carbonate 500 mg Chew Tablet 1000 MG PO (09:28)
[2023-09-07 10:14] LABS: Cortisol Random 21.76 ug/dL (2.47-19.5); Free T4 Free Thyroxine 1.72 ng/dL (0.82-1.77); T3 Free 1.1 PG/ML (2.0-4.4); Thyroid Stimulating Hormone 5.33 uIU/mL (0.27-4.20)
[2023-09-07 10:51] LABS: Glucose Point of Care 232 mg/dL (70-110)
[2023-09-07] MEDS: AA-Dex 4.25%-5% w/Lytes 1,000 ML with multivitamin inj 5 ML 63 ML IV (11:44)
[2023-09-07] MEDS: insulin lispro 100 unit/1 mL SUBCUT (11:45)
[2023-09-07] MEDS: norepinephrine 4 MG/250 ML BAG 15 MG IV (12:43)
--- NOTE | 2023-09-07 13:51 | PC.NURSE ---
attempting to wean levophed , transfused one unit prbc this am .. pt alert and aware cooperative encoraged to turn and reposition off bottom as has red area bottom taking only small amts of food
--- NOTE | 2023-09-07 15:27 | P.PN_ITS ---
Subjective 2 Subjective: Patient was seen this morning, she remains on 2 of Levophed, she is actually sitting up in bed, playing on her phone, she is alert oriented x 3, she tells me she feels significantly better, she is on 12 L heated high flow, she does not remember the events of the last few days, she tells me her appetite is improving, currently she is on peripheral nutrition, which is her anemia giving her a unit of blood continued IV diuresis, having PT OT evaluate her she is still on Levophed we will have to wean her off of it slowly, she is agreeable Vitals/I&O/Wt Last Vital Signs Temp 97.7 F 09/07/23 12:00 Pulse 81 09/07/23 14:00 Resp 19 H 09/07/23 13:40 BP 97/54 09/07/23 12:00 Pulse Ox 94 09/07/23 13:40 O2 Del Method High Flow Nasal Cannula 09/07/23 13:40 O2 Flow Rate 9 09/07/23 13:40 FiO2 50 09/06/23 16:10 09/07/23 09/07/23 09/07/23 06:59 14:59 22:59 Intake Total 651.875 / 1708.592 3699.767 / 1216.767 Output Total 200 / 1000 Balance 451.875 / 736.052 0330.767 / 1216.767 Weight last 48 hrs Weight 67 kg Weight 67.585 kg Physical Exam 2 Const: COMMON NORMALS: no acute distress and patient oriented x3 Resp: COMMON NORMALS: normal respiratory effort, No retractions, No use of accessory muscles and clear to auscultation bilaterally AUSCULTATION: clear to auscultation bilaterally Cardio: COMMON NORMALS: regular rate, regular rhythm, S1 normal heart sound present and S2 normal heart sound present RATE: regular rate RHYTHM: r egular rhythm HEART SOUNDS: S1 normal heart sound present and S2 normal heart sound present GI: COMMON NORMALS: Normal to inspection, nondistended, normoactive bowel sounds present, Soft to palpation and non-tender PALPATION: Yes Soft to palpation Extremity: COMMON NORMALS: no pedal edema Neuro: COMMON NORMALS: patient oriented x3 Psych: COMMON NORMALS: mental status grossly normal Urinary Catheter Management: Hooper: Cath Placed During This Visit: yes Reason for Continuing Indwelling Catheter: Accurate Measurement of Urinary Output in Critically Ill Patients Urinary Catheter Date of Insertion: 08/25/23 Urinary Catheter Time of Insertion: 22:59 Data 09/07/23 04:50 09/07/23 04:50 Micro: Microbiology 09/06/23 16:30 Stool Lactoferrin - Final Stool Occult Blood (FIT) - Final A&P Assessment and plan (1) Hypotension: -Likely multifactorial - adrenal insufficiency,diureses -midodrine 10mg 3 times daily neck ? Wean Levophed ? Wean hydrocortisone, fludrocortisone Qualifiers: Hypotension type: unspecified hypotension type Qualified Code(s): I95.9 - Hypotension, unspecified (2) Enterocolitis: CT/CT abdomen pelvis w con* [id number] IMPRESSION: New low-density wall thickening seen through much of the colon as well as portions of small bowel raising consideration of enterocolopathy of portal hypertension, enterocolitis (either infectious/inflammatory or ischemic) , or angioedema. Mild increase in ascites which remains small. Large gallstone again noted within gallbladder. Fatty liver. -Gallbladder ultrasound IMPRESSION: 1. Extremely difficult evaluation of the RIGHT upper quadrant due to body habitus. 2. Cholelithiasis without acute cholecystitis. No bile duct dilatation. 3. Cirrhotic liver with hepatic steatosis. PLAN: -ruq us -follow LFT, lipase, ggt (3) Hypokalemia: Replace hypokalemia. Has received some magnesium. Recheck magnesium level. (4) Hypomagnesemia: Received supplementation. Recheck level. (5) Adrenal insufficiency: as above. (6) Acquired hypothyroidism: TSH 15.91. Has not been able to take her medications. Receiving stress dose steroids as above. (7) Wall motion abnormality of inferior wall of left ventricle: - History of severe coronary artery disease one-vessel disease, distal RCA treated with balloon and drug-eluting stent, back in 2019 Echocardiogram - Normal LV size with a slightly diminished ejection fraction of 50% (visual). Mild left-ventricular hypertrophy. Wall motion abnormalities as mentioned above Moderate mitral annular calcification. Normal RV size and ejection fraction There is no pericardial effusion. There are no intracardiac masses. Compared to the study from 06/27/2023, the wall motion abnormalities appear to be new Plan ? Serial EKGs, serial troponins, telemetry monitoring ? Aspirin, Plavix on hold -Given wall motion abnormalities, consulted cardiology (8) Acute hypoxic respiratory failure: -Acute hypoxic respiratory failure ? With development of acute respiratory distress syndrome -Secondary to fluid overload, pulmonary edema, systolic [place] [address], chest x-ray showing pulm vascular congestion - pneumonia, given leukocytosis elevated Pro-Reilly, CRP -Now with A-fib with RVR ? Chest x-ray shows improving pulmonary vascular congestion ? Plan -Currently on Levophed at 2 ? Currently on 5 L, BiPAP as needed ? Fluid restrictions at 1000 cc, has diuresed over 9 L negative ? Continue albumin ?Today will daily dose, 1 dose IV Lasix -monitor creatinine monitor urine output monitor potassium ?monitor fluid status, monitor creatinine, -Continue fludrocortisone, ? Continue Levophed to maintain MAP greater than 65 -Continue meropenem, continue vancomycin -Follow-up blood cultures - verapamil on hold -Continue to monitor respiratory status closely -Full code -Eliquis for DVT prophylaxis on hold -Status is stable, prognosis is guarded (9) Pulmonary edema: (10) Fluid overload: (11) CHF (congestive heart failure): Qualifiers: Heart failure type: unspecified Heart failure chronicity: chronic Qualified Code(s): I50.9 - Heart failure, unspecified (12) Acute respiratory distress syndrome: (13) Sepsis: (14) Shock: - Possibly septic shock, given pneumonia ? Component of cardiogenic shock, given wall motion abnormalities on echocardiogram -component of adrenal insufficiency (15) Atrial fibrillation with RVR: (16) Digoxin toxicity: resolved, Digoxin levels over 3, digoxin was stopped amiodarone was stopped continue to monitor monitor potassium (17) Acute anemia: (18) Thrombocytopenia: - Patient has anemia, thrombocytopenia -Hold aspirin, Plavix, Eliquis ? Hemolytic labs, ? Repeat CBC this evening (19) Hyperbilirubinemia: Liver ultrasound no acute findings, next ?we will monitor Plan CAD: Plavix if able to tolerate, asa CHF: Currently not in exacerbation A-fib: Normally on Eliquis CKD: Creatinine 1.1 appears close to baseline. At risk of acute kidney injury with hyperkalemia, low oral intake. Hypotension. Reassess renal function. Electrolytes. Acid-base. GERD: PPI by IV at the moment. COPD: Not in exacerbation. Breathing treatments scheduled and as needed. History of HTN: This appears to be remote history, she is for the most part been having low blood pressures. Currently hypotensive. Smoking addiction: Encourage cessation. Nicotine replacement as needed. DM2: Accu-Cheks every 6 hours, insulin sliding scale. Guesses carb diet. Diabetic neuropathy: Hold off gabapentin for now due to hypotension. HLD: statin for now - plan for today transfuse 1 units, prbc, continue to fuentes cifuentes ppn Attestations 2 Medical Necessity Statement*: Patient requires hospitalization for fluid overload, acute anemia, deconditioning, protein calorie malnutrition, respiratory failure, currently on high flow nasal cannula at 12 L Diagnoses Hypotension, unspecified hypotension type I95.9 Hypotension type: unspecified hypotension type Enterocolitis K52.9 Hypokalemia E87.6 Hypomagnesemia E83.42 Adrenal insufficiency E27.40 Acquired hypothyroidism E03.9 Wall motion abnormality of inferior wall of left ventricle R94.30 Acute hypoxic respiratory failure J96.01 Pulmonary edema J81.1 Fluid overload E87.70 Acute on chronic congestive heart failure, unspecified heart failure type I50.9 Heart failure type: unspecified Heart failure chronicity: chronic Acute respiratory distress syndrome J80 Sepsis A41.9 Shock R57.9 Atrial fibrillation with RVR I48.91 Digoxin toxicity T46.0X1A Acute anemia D64.9 Thrombocytopenia D69.6 Hyperbilirubinemia E80.6
[2023-09-07 17:07] LABS: Glucose Point of Care 95 mg/dL (70-110)
[2023-09-07] MEDS: gabapentin 300 mg Capsule 600 MG PO (17:23)
[2023-09-07] MEDS: atorvastatin 40 mg Tablet 20 MG PO (20:38)
[2023-09-07] MEDS: pantoprazole 40 mg SDV IVP (20:38)
[2023-09-07] MEDS: mirtazapine 30 mg Tablet PO (20:38)
[2023-09-07 21:17] LABS: Hematocrit 27.9 % (36-47); Mean Corpuscular HGB Conc 33.3 g/dL (30-55); Mean Corpuscular Hemoglobin 32.1 pg (27-33); Mean Corpuscular Volume 96.2 fl (85-98); Platelet Count 72 10^3/cmm (157-399); Red Cell Distribution Width 16.4 % (12.1-15.1); White Blood Count 9.22 10^3/uL (3.29-11.43)
[2023-09-07 21:46] LABS: Glucose Point of Care 99 mg/dL (70-110)
[2023-09-07 21:46] LABS: Absolute Eosinophils 0.1 10^3/cmm (0.0-0.7); Absolute Neutrophil 6.8 10^3/cmm (1.4-6.5); Absolute Segmented Neutrophil 6.6 10/cmm (1.6-7.1); Band Neutrophils Absolute 0.2 10^3/cmm (0.0-1.2); Basophils Absolute 0.1 10^3/cmm (0.0-0.2); Eosinophils 1 %; Lymphocytes 21 %; Lymphocytes Absolute 1.9 10^3/cmm (1.2-3.4); Monocytes Absolute 0.3 10^3/cmm (0.1-0.6); Platelet Estimate Decreased (Normal); Segmented Neutrophils 72 %; Total Cells Counted 100 (0-100)
[2023-09-08] VITALS (56 sets, daily range): BP systolic 74–129; BP diastolic 47–77; PULSE 78–95; RESP 7–30; TEMP 36.1–36.7; O2SAT 81–100
[2023-09-08 00:34] LABS: Glucose Point of Care 99 mg/dL (70-110)
[2023-09-08] MEDS: ipratropium-albuterol 3 mL Neb INHALATION ×4 (01:11→19:35)
[2023-09-08] MEDS: AA-Dex 4.25%-5% w/Lytes 1,000 ML with multivitamin inj 5 ML 83 ML IV ×3 (01:18→23:18)
[2023-09-08] MEDS: magnesium lactate 84 mg Tablet PO ×2 (02:38→13:26)
[2023-09-08] MEDS: midodrine 5 mg TABLET 10 MG PO ×2 (02:38→11:14)
[2023-09-08 03:43] LABS: Basophils % 0.2 %; Eosinophils # 0.1 10^3/uL (0.0-0.8); Eosinophils % 1.5 %; Hematocrit 26.7 % (36-47); Lymphocytes # 1.9 10^3/uL (0.8-4.8); Mean Corpuscular HGB Conc 31.5 g/dL (30-55); Mean Corpuscular Hemoglobin 31.2 pg (27-33); Mean Corpuscular Volume 99.3 fl (85-98); Mean Platelet Volume 14.1 fL (7.4-10.4); Monocytes # 0.5 10^3/uL (0.2-0.9); Monocytes % 5.5 %; Neutrophils # 6.14 10^3/uL (1.8-7.7); Neutrophils % 70.2 %; Nucleated Red Blood Cells % 0.2 %; Platelet Count 67 10^3/cmm (157-399); Red Blood Count 2.69 10^6/uL (3.85-5.65); Red Cell Distribution Width 16.5 % (12.1-15.1); White Blood Count 8.74 10^3/uL (3.29-11.43)
[2023-09-08 03:59] LABS: Alanine Aminotransferase 9 U/L (0-33); Albumin Level 4.8 g/dL (3.5-5.2); Alkaline Phosphatase 81 U/L (35-105); Anion Gap 15.2 (5-19); Aspartate Amino Transferase 31 U/L (0-32); Blood Urea Nitrogen 28 mg/dL (8-23); Calcium 9.5 mg/dL (8.5-10.5); Carbon Dioxide 36 mmol/L (22-29); Chloride 84 mmol/L (98-107); Creatinine Clr Calc Pharmacy 64.2261; Glomerular Filtration Rate 123.1 mL/min (90-130); Glucose 305 mg/dL (65-115); Magnesium 2.4 mg/dL (1.7-2.3); Osmolality Calculated 289 mOsm/kg (285-295); Phosphorus 5.2 mg/dL (2.5-4.5); Potassium 4.2 mmol/L (3.5-5.1); Sodium 131 mmol/L (136-145); Total Bilirubin 1.3 mg/dL (0.15-1.2); Total Protein 5.8 g/dL (6.6-8.7)
[2023-09-08 04:13] LABS: Cortisol Random 8.44 ug/dL (2.47-19.5)
[2023-09-08 04:29] LABS: NT Pro B Type Natriuretic Pept > 35000 pg/mL (0-125)
[2023-09-08 04:32] LABS: ABG PCO2 46.5 mmHg (35-45); ABG PH Result 7.56 (7.35-7.45); Arterial Blood Gas Hematocrit 27.9 % (37-47); Base Excess ABG 17.7 mmol/L (-2.0-2.0); Blood Gas Allen Test Pos; Blood Gas Operator Identificat JB; Blood Gas Sample Site Radial, right; Blood Gas Sample Type Arterial; HCO3 ABG 41.7 mmol/L (22-26); Oxygen Device BIPAP; PO2 ABG 63.9 mmHg (80.0-100.0); PO2 FiO2 Ratio Arterial Blood 0
[2023-09-08] MEDS: levothyroxine 125 mcg Tablet PO (05:17)
[2023-09-08] MEDS: hydrocortisone 10 mg Tablet PO (05:17)
[2023-09-08] MEDS: folic acid 1 mg Tablet PO (05:17)
[2023-09-08 06:18] LABS: Glucose Point of Care 121 mg/dL (70-110)
[2023-09-08] MEDS: albumin 25 G/100 ML BAG 60 G IV ×3 (06:45→22:57)
--- NOTE | 2023-09-08 08:43 | PC.NURSE ---
had large thick mucus noted with pill fragments noted sats decreased down to 70s increased o2 to 15l mask noted decrease in blood pressure and increased levophed gtt respond to questions appropriate
[2023-09-08] MEDS: amoxicillin-clav 875-125 mg Tablet 1 TAB PO ×2 (09:21→17:31)
[2023-09-08] MEDS: fludrocortisone 0.1 mg Tablet 0.100000000000000006 MG PO (09:22)
[2023-09-08] MEDS: calcium carbonate 500 mg Chew Tablet 1000 MG PO (09:22)
[2023-09-08] MEDS: gabapentin 300 mg Capsule 900 MG PO (09:22)
[2023-09-08] MEDS: HYDROcodone-acetaminophen 5-325 mg Tablet 1 TAB PO ×2 (09:24→22:56)
--- NOTE | 2023-09-08 09:48 | PM.PN ---
Subjective Subjective: Patient is off the dopamine. The systolic blood pressures in the 80s. Patient seems to be comfortable. Received 1 unit of blood transfusion yesterday. Hemoglobin stays around 8.4. No chest pain. No new symptoms. Medications: Medication Review Details: Current Medications Acetaminophen (Acetaminophen 325 Mg Tablet) 650 mg PO Q6H PRN PRN Reason: Mild/Mod Pain Or Temp >/= 101 Last Admin: 09/01/23 21:32 Dose: 650 mg Hydrocodone Bitart/Acetaminophen (Hydrocodone-Acetaminophen 5-325 Mg Tablet) 1 tab PO Q4H PRN PRN Reason: MODERATE PAIN Last Admin: 09/08/23 09:24 Dose: 1 tab Albuterol/Ipratropium (Ipratropium-Albuterol 3 Ml Neb) 3 ml INHALATION Q6H PRN PRN Reason: SHORTNESS OF BREATH Albuterol/Ipratropium (Ipratropium-Albuterol 3 Ml Neb) 3 ml INHALATION Q6H.RESP [facility] Last Admin: 09/08/23 07:39 Dose: 3 ml Amoxicillin/Clavulanate Potassium (Amoxicillin-Clav 875-125 Mg Tablet) 1 tab PO BID [facility]; Protocol Last Admin: 09/08/23 09:21 Dose: 1 tab Aspirin (Aspirin 81 Mg Ec Tablet) 81 mg PO DAILY [facility] Last Admin: 09/02/23 10:01 Dose: 81 mg Atorvastatin Calcium (Atorvastatin 40 Mg Tablet) 20 mg PO BEDTIME [facility] Last Admin: 09/07/23 20:38 Dose: 20 mg Calcitriol (Calcitriol 0.25 Mcg Capsule) 0.25 mcg PO MoWeFr [facility] Last Admin: 09/06/23 10:03 Dose: 0.25 mcg Calcium Carbonate (Calcium Carbonate 500 Mg Chew Tablet) 1,000 mg PO DAILY [facility] Last Admin: 09/08/23 09:22 Dose: 1,000 mg Clopidogrel Bisulfate (Clopidogrel 75 Mg Tablet) 75 mg PO DAILY [facility] Last Admin: 09/02/23 10:01 Dose: 75 mg Cyclobenzaprine HCl (Cyclobenzaprine 10 Mg Tablet) 5 mg PO TID PRN PRN Reason: MUSCLE SPASMS Last Admin: 09/07/23 00:47 Dose: 5 mg Fludrocortisone Acetate (Fludrocortisone 0.1 Mg Tablet) 0.1 mg PO DAILY [facility] Last Admin: 03/17/24 09:22 Dose: 0.1 mg Folic Acid (Folic Acid 1 Mg Tablet) 1 mg PO QAM [facility] Last Admin: 09/08/23 05:17 Dose: 1 mg Gabapentin (Gabapentin 300 Mg Capsule) 900 mg PO DAILY [facility] Last Admin: 09/08/23 09:22 Dose: 900 mg Gabapentin (Gabapentin 300 Mg Capsule) 600 mg PO QPM [facility] Last Admin: 09/07/23 17:23 Dose: 600 mg Hydrocortisone (Hydrocortisone 10 Mg Tablet) 10 mg PO QAM [facility] Last Admin: 09/08/23 05:17 Dose: 10 mg Dextrose (D5w) 500 mls @ 0 mls/hr IV ONCE PRN; Protocol PRN Reason: Adult Acute Hypoglycemia Prot Dextrose (D10w) 125 mls @ 750 mls/hr IV PRN PRN; Protocol PRN Reason: Adult Acute Hypoglycemia Nursing Protocol Dextrose (D10w) 250 mls @ 1,000 mls/hr IV PRN PRN; Protocol PRN Reason: Adult Acute Hypoglycemia Nursing Protocol norepinephrine (Levophed) 4 mg in 250 mls @ 0 mls/hr IV .Q0M [facility]; Protocol Last Titration: 09/08/23 09:00 Dose: 0 mcg/min, 0 mls/hr Multivitamins 5 ml/ AA-Dex 4. (25%-5% w/Lytes) 1,005 mls @ 83 mls/hr IV .Q12H7M [facility]; Protocol Last Admin: 09/08/23 01:18 Dose: 83 mls/hr fat emulsions 20% (Intralipid 20%) 100 mls @ 8.333 mls/hr IV Q24H [facility] Last Infusion: 09/08/23 00:16 Dose: Infused Dextrose (D5w) 500 mls @ 0 mls/hr IV ONCE PRN; Protocol PRN Reason: Adult Acute Hypoglycemia Prot Dextrose (D10w) 125 mls @ 750 mls/hr IV PRN PRN; Protocol PRN Reason: Adult Acute Hypoglycemia Nursing Protocol Dextrose (D10w) 250 mls @ 1,000 mls/hr IV PRN PRN; Protocol PRN Reason: Adult Acute Hypoglycemia Nursing Protocol Albumin Human (Albumin) 25 g in 100 mls @ 60 mls/hr IV Q8H [facility] Last Titration: 09/08/23 08:50 Dose: 0 mls/hr Insulin Human Lispro (Insulin Lispro 100 Unit/1 Ml) 0 unit SUBCUT Q6H [facility]; Protocol Last Admin: 09/08/23 06:14 Dose: Not Given Lanolin (Lanolin Oint 7 Gm) 1 applic TOPICAL PRN PRN PRN Reason: DRYNESS Last Admin: 08/31/23 05:01 Dose: 1 applic Levothyroxine Sodium (Levothyroxine 125 Mcg Tablet) 125 mcg PO QAM [facility] Last Admin: 09/08/23 05:17 Dose: 125 mcg Magnesium Lactate (Magnesium Lactate 84 Mg Tablet) 84 mg PO Q12H [facility] Last Admin: 09/08/23 02:38 Dose: 84 mg Metoclopramide HCl (Metoclopramide 5 Mg/Ml Sdv 2 Ml) 5 mg IVP Q6H PRN PRN Reason: NAUSEA AND VOMITING Last Admin: 09/01/23 17:39 Dose: 5 mg Midodrine (Midodrine 5 Mg Tablet) 10 mg PO Q8H [facility] Last Admin: 09/08/23 02:38 Dose: 10 mg Mirtazapine (Mirtazapine 30 Mg Tablet) 30 mg PO BEDTIME [facility] Last Admin: 09/07/23 20:38 Dose: 30 mg Nicotine (Nicotine 21 Mg Patch) 1 patch TRANSDERMA DAILY PRN PRN Reason: WITHDRAWAL Nicotine Polacrilex (Nicotine 4 Mg Lozenge) 4 mg MUCOUS MEM Q4H PRN PRN Reason: NICOTINE CRAVINGS Ondansetron HCl (Ondansetron 2 Mg/Ml Sdv 2 Ml) 4 mg IVP Q8H PRN PRN Reason: vomiting, or N/V if npo Last Admin: 09/01/23 09:57 Dose: 4 mg Pantoprazole Sodium (Pantoprazole 40 Mg Sdv) 40 mg IVP Q24H [facility] Last Admin: 09/07/23 20:38 Dose: 40 mg Polyethylene Glycol (Polyethylene Glycol 3350 Pkt 17 Gm) 17 gm PO DAILY [facility] Last Admin: 09/08/23 09:04 Dose: Not Given Senna/Docusate Sodium (Sennosides-Docusate Tablet) 2 tab PO DAILY [facility] Last Admin: 09/08/23 09:04 Dose: Not Given Vitals/I&O/Wt Last Vital Signs Temp 97.9 F 09/08/23 07:30 Pulse 90 09/08/23 08:30 Resp 11 L 09/08/23 08:30 BP 103/57 09/08/23 08:30 Pulse Ox 89 L 09/08/23 08:30 O2 Del Method High Flow Nasal Cannula 09/08/23 07:30 O2 Flow Rate 9 09/08/23 07:30 FiO2 50 09/08/23 04:23 09/07/23 09/08/23 09/08/23 22:59 06:59 14:59 Intake Total 418.75 / 6394.477 4340.617 / 2774.259 373.25 / 373.25 Output Total 1999 100 / 2100 1320 / 1320 Balance -1581.25 / -842.562 5271.617 / 674.259 -946.75 / -946.75 Weight last 48 hrs Weight 145 lb 4.554 oz Weight 147 lb 11.355 oz Physical Exam Narrative: GENERAL: The patient is alert and oriented to place and person. Not in any acute distress. Chronically ill looking. HEENT: Moderate pallor, no icterus or lymphadenopathy.Oral cavity: There are no mucous membrane lesions. NECK: Trachea appears to be central. No masses noted. No JVD or thyromegaly appreciated. RESPIRATORY: Chest is symmetrical. No intercostals muscle retraction or any accessory muscle activation. There is no chest wall tenderness. Breath sounds are heard bilaterally. The breath sounds are diminished in the bases. Occasional coarse crackles BREASTS: Deferred. HEART: The heart sounds are normal. No S3 or S4. Short systolic murmur in the lower sternal border. No diastolic murmurs. No pericardial rub ABDOMEN: No vessel pulsations or distention. No tenderness. No organomegaly appreciated. Bowel sounds are normally heard. : Deferred. RECTAL: Deferred. LYMPHATIC: No lymphadenopathy noted in the neck. EXTREMITIES: No edema or cyanosis. No clubbing. MUSCULOSKELETAL: No acute joint deformities or swelling SKIN: Extensive superficial ecchymosis bilaterally in the extremities NEUROPSYCHIATRIC: The patient is alert and oriented x2. No focal motor deficits. Urinary Catheter Management: Hooper: Cath Placed During This Visit: yes Reason for Continuing Indwelling Catheter: Accurate Measurement of Urinary Output in Critically Ill Patients Urinary Catheter Date of Insertion: 08/25/23 Urinary Catheter Time of Insertion: 22:59 Data 09/08/23 02:58 09/08/23 02:58 Other Labs: Laboratory Last Values WBC 8.74 10^3/uL (3.29-11.43) 09/08/23 02:58 RBC 2.69 10^6/uL (3.85-5.65) L 09/08/23 02:58 Hgb 8.40 g/dL (11.27-16.99) L 09/08/23 02:58 Hct 26.7 % (36-47) L 09/08/23 02:58 MCV 99.3 fl (85-98) H 09/08/23 02:58 MCH 31.2 pg (27-33) 09/08/23 02:58 MCHC 31.5 g/dL (30-55) D 09/08/23 02:58 RDW 16.5 % (12.1-15.1) H 09/08/23 02:58 Plt Count 67 10^3/cmm (157-399) L 09/08/23 02:58 MPV 14.1 fL (7.4-10.4) H 09/08/23 02:58 Neut % (Auto) 70.2 % 09/08/23 02:58 Lymph % (Auto) 22.0 % 09/08/23 02:58 Barber % (Auto) 5.5 % 09/08/23 02:58 Eos % (Auto) 1.5 % 09/08/23 02:58 Baso % (Auto) 0.2 % 09/08/23 02:58 Neut # (Auto) 6.14 10^3/uL (1.8-7.7) 09/08/23 02:58 Lymph # (Auto) 1.9 10^3/uL (0.8-4.8) 09/08/23 02:58 Barber # (Auto) 0.5 10^3/uL (0.2-0.9) 09/08/23 02:58 Eos # (Auto) 0.1 10^3/uL (0.0-0.8) 09/08/23 02:58 Baso # (Auto) 0.0 10^3/uL (0.0-0.1) 09/08/23 02:58 Nucleated RBC % (auto) 0.2 % 09/08/23 02:58 Total Counted 100 (0-100) 09/07/23 21:05 Atypical Lymphs % 0.0 % (0-5) 09/07/23 21:05 Absolute Neutrophils 6.8 10^3/cmm (1.4-6.5) H 09/07/23 21:05 Segmented Neutrophils 72 % 09/07/23 21:05 Abs Segm Neuts (Man) 6.6 10/cmm (1.6-7.1) 09/07/23 21:05 Band Neutrophils 2.0 % 09/07/23 21:05 Abs Band Neuts (Man) 0.2 10^3/cmm (0.0-1.2) 09/07/23 21:05 Absolute Lymphocytes 1.9 10^3/cmm (1.2-3.4) 09/07/23 21:05 Lymphocytes (Manual) 21 % 09/07/23 21:05 Monocytes (Manual) 3.0 % 09/07/23 21:05 Absolute Monocytes 0.3 10^3/cmm (0.1-0.6) 09/07/23 21:05 Eosinophils (Manual) 1 % 09/07/23 21:05 Absolute Eosinophils 0.1 10^3/cmm (0.0-0.7) 09/07/23 21:05 Basophils (Manual) 1.0 % 09/07/23 21:05 Absolute Basophils 0.1 10^3/cmm (0.0-0.2) 09/07/23 21:05 Nucleated RBCs # 0.0 /100WBC 09/08/23 02:58 Platelet Estimate Decreased (Normal) L 09/07/23 21:05 Peripher Smr Path Cons Sent for review 09/03/23 15:14 ESR < 1 mm/hr (0-15) 08/26/23 03:30 Haptoglobin 76.0 mg/L (30-200) 09/03/23 04:40 PT 19.00 SECONDS (12.1-14.9) H 09/06/23 04:43 INR 1.54 (0.8-1.2) H 09/06/23 04:43 APTT 36.7 SECONDS (23.9-36.7) 09/03/23 15:14 Fibrinogen 163 mg/dL (174-498) L 09/03/23 15:14 D-Dimer 3.51 ug/mLFEU (0-0.59) H 09/03/23 15:14 Specimen Type Arterial 09/08/23 04:15 Sample Site Radial, right 09/08/23 04:15 ABG pH 7.56 (7.35-7.45) H 09/08/23 04:15 ABG pCO2 46.5 mmHg (35-45) H 09/08/23 04:15 ABG pO2 63.9 mmHg (80.0-100.0) L 09/08/23 04:15 ABG PO2/FiO2 Ratio 0 09/08/23 04:15 ABG HCO3 41.7 mmol/L (22-26) H 09/08/23 04:15 ABG O2 Saturation 89.2 09/01/23 14:53 ABG Base Excess 17.7 mmol/L (-2.0-2.0) H 09/08/23 04:15 Higinio Test Pos 09/08/23 04:15 VBG pH 7.35 (7.32-7.42) 08/25/23 21:27 VBG pCO2 42.1 mmHg (41-51) 08/25/23 21:27 VBG pO2 28.9 mmHg (25-40) 08/25/23 21:27 VBG HCO3 23.2 mmol/L (24-28) L 08/25/23 21:27 VBG Base Excess -2.4 mmol/L (-3.0-3.0) 08/25/23 21:27 VBG Hematocrit 39.4 % (37-47) 08/25/23 21:27 A-a O2 Gradient 42.3 mmHg (5-10) H 09/01/23 14:53 Hematocrit 27.9 % (37-47) L 09/08/23 04:15 Hgb O2 Saturation 87.8 % (95-100) L 09/01/23 14:53 Carboxyhemoglobin 1.1 %THgb (0.4-20.1) 09/01/23 14:53 Methemoglobin 0.5 % (0.4-1.5) 09/01/23 14:53 Total Hemoglobin 10.0 g/dL (12-16) L 09/01/23 14:53 Sodium 137.0 mmol/L (131-143) 09/01/23 14:53 Potassium 2.7 mmol/L (3.5-5.0) L 09/01/23 14:53 Glucose 138.0 mg/dL (70-115) H 09/01/23 14:53 Ionized Calcium 1.1 mmol/L (1.1-1.4) 09/01/23 14:53 O2 Delivery Device Bipap 09/08/23 04:15 O2 Liters/Min 12.0 % 09/07/23 04:26 FiO2 50.0 % 09/08/23 04:15 Director Graphics ID [email or web address] 09/08/23 04:15 Sodium 131 mmol/L (136-145) L 09/08/23 02:58 Potassium 4.2 mmol/L (3.5-5.1) 09/08/23 02:58 Chloride 84 mmol/L (98-107) L 09/08/23 02:58 Carbon Dioxide 36 mmol/L (22-29) H 09/08/23 02:58 Anion Gap 15.2 (5-19) 09/08/23 02:58 BUN 28 mg/dL (8-23) H 09/08/23 02:58 Creatinine 0.5 mg/dL (0.5-0.9) 09/08/23 02:58 GFR Calculation 123.1 mL/min (90-130) 09/08/23 02:58 Glucose 305 mg/dL (65-115) H 09/08/23 02:58 POC Glucose 121 mg/dL (70-110) H 09/08/23 06:12 Calculated Osmolality 289 mOsm/kg (285-295) 09/08/23 02:58 Lactic Acid 0.8 mmol/L (0.5-2.2) 08/26/23 08:58 Lactic Acid (Sepsis) 1.7 mmol/L (0.5-2.2) 08/25/23 19:43 Lactate 1.6 mmol/L (0.5-2.2) 09/06/23 04:43 Calcium 9.5 mg/dL (8.5-10.5) 09/08/23 02:58 Phosphorus 5.2 mg/dL (2.5-4.5) H 09/08/23 02:58 Magnesium 2.4 mg/dL (1.7-2.3) H 09/08/23 02:58 Iron 63 ug/dL (37-145) 09/03/23 04:40 Ferritin 560 ng/mL (15-150) H 09/03/23 04:40 Total Bilirubin 1.3 mg/dL (0.15-1.2) H 09/08/23 02:58 Direct Bilirubin 1.00 mg/dL (0.00-0.30) H 09/02/23 03:20 Indirect Bilirubin 2.60 09/02/23 03:20 GGT 76 U/L (5-36) H 09/02/23 03:20 AST 31 U/L (0-32) 09/08/23 02:58 ALT 9 U/L (0-33) 09/08/23 02:58 Alkaline Phosphatase 81 U/L (35-105) 09/08/23 02:58 Lactate Dehydrogenase 447 U/L (135-214) H 09/03/23 04:40 Creatine Kinase 25 U/L (26-192) L 09/03/23 04:40 Troponin T Baseline 30 ng/L (0-10) H 08/27/23 09:22 Troponin T 120 Minute 38.12 ng/L (0-10) H 08/27/23 11:33 Delta Troponin T 8.12 ABS# (0-10) 08/27/23 11:33 Troponin T Hi Sens 6Hr 33.09 ng/L (0-10) H 08/27/23 15:22 Troponin T Hi Sens 6Hr Delta 3.09 ng/L (0-12) 08/27/23 15:22 C-Reactive Protein 10.1 mg/L (0.0-4.9) H 09/06/23 04:43 NT-Pro-B Natriuret Pep > 39128 pg/mL (0-125) H 09/08/23 02:58 Total Protein 5.8 g/dL (6.6-8.7) L 09/08/23 02:58 Albumin 4.8 g/dL (3.5-5.2) 09/08/23 02:58 Globulin 1.0 g/dL (1.3-4.6) L 09/08/23 02:58 Lipase 5 U/L (13-60) L 09/02/23 03:20 Vitamin B12 530 pg/mL (232-1245) 08/26/23 07:00 Folate 17.2 ng/mL (4.8-37.3) 08/25/23 21:27 Procalcitonin 0.44 ng/mL (0-0.5) 09/06/23 04:43 TSH 5.33 uIU/mL (0.27-4.20) H 09/07/23 09:21 Free T4 1.72 ng/dL (0.82-1.77) 09/07/23 09:21 Free T3 1.1 PG/ML (2.0-4.4) L 09/07/23 09:21 Random Cortisol 8.44 ug/dL (2.47-19.5) 09/08/23 02:58 Urine Color Dark yellow (Yellow) 08/25/23 17:40 Urine Appearance Clear (CLEAR) 08/25/23 17:40 Urine pH 5 (5-7) 08/25/23 17:40 Ur Specific [place] 1.020 (1.005-1.030) 08/25/23 17:40 Urine Protein Trace (Negative) 08/25/23 17:40 Urine Glucose (UA) Norm (Normal) 08/25/23 17:40 Urine Ketones 1+ (Negative) H 08/25/23 17:40 Urine Blood Neg (Negative) 08/25/23 17:40 Urine Nitrate Negative (Negative) 08/25/23 17:40 Urine Bilirubin 2+ (Negative) H 08/25/23 17:40 Urine Urobilinogen 4+ mg/dL (Negative) H 08/25/23 17:40 Ur Leukocyte Esterase Negative (Negative) 08/25/23 17:40 Urine RBC None /hpf (0-2) 08/25/23 17:40 Urine WBC 0-4 /hpf (0-5) H 08/25/23 17:40 Ur Squamous Epith Cells None /hpf (0-5) 08/25/23 17:40 Amorphous Sediment Not Reportable 08/25/23 17:40 Urine Bacteria Trace /hpf (NONE) 08/25/23 17:40 Vancomycin Trough 29.9 ug/mL (10-15) H* 09/01/23 09:27 Digoxin 1.1 ng/mL (0.6-1.2) 09/03/23 04:40 Serum Ketones Negative (Negative) 08/25/23 21:27 IgA 629 mg/dL (70-320) H 08/25/23 21:27 BRENT Nuclear Membr Pat Nuclear, speckled A 08/26/23 08:58 BRENT IFA Animal Tis Ttr 1:40 titer H 08/26/23 08:58 BRENT IFA Animal Tis Res Positive (NEGATIVE) A 08/26/23 08:58 MINA-1 Antibody <1.0 neg AI (<1.0 NEG) 08/26/23 08:58 SS-A Antibody <1.0 neg AI (<1.0 NEG) 08/26/23 08:58 SS-B Antibody <1.0 neg AI (<1.0 NEG) 08/26/23 08:58 Sm (Arias) Antibody <1.0 neg AI (<1.0 NEG) 08/26/23 08:58 DOOR PERSON Antibody <1.0 neg AI (<1.0 NEG) 08/26/23 08:58 Scl-70 Antibody <1.0 neg AI (<1.0 NEG) 08/26/23 08:58 Anti-ds DNA IgG (Crith) Negative (NEGATIVE) 08/26/23 08:58 Centromere B Antibody <1.0 neg AI (<1.0 NEG) 08/26/23 08:58 Tiss Transglutamin IgG <1.0 U/mL 08/25/23 21:27 Tiss Transglutamin IgA <1.0 U/mL 08/25/23 21:27 Thyroid Peroxidase Ab <1 IU/mL (<9) 08/26/23 08:58 Anti-Gliadin IgG JENNA Res 1.8 U/mL 08/25/23 21:27 Anti-Gliad IgA JENNA Res 2.3 U/mL 08/25/23 21:27 Complement C3c 62 mg/dL (83-193) L 08/26/23 08:58 Complement C4c 41 mg/dL (15-57) 08/26/23 08:58 CH50 Classical Pathway 27 U/mL (31-60) L 08/26/23 08:58 Adenovirus (PCR) Not detected (NOT DETECT) 08/26/23 15:00 C. pneumoniae DNA (PCR) Not detected (NOT DETECT) 08/26/23 15:00 C. difficile (PCR) Negative (Negative) 09/06/23 16:30 Coronavirus 229E (PCR) Not detected (NOT DETECT) 08/26/23 15:00 CMV Culture Source blood 08/26/23 08:58 CMV IgG Ab >10.00 U/mL H 08/25/23 21:27 CMV IgM Ab <30.00 AU/mL 08/25/23 21:27 CMV DNA Quant PCR Not detected IU/mL 08/26/23 08:58 CMV Qnt PCR Interp Not detected Log IU/mL 08/26/23 08:58 Hepatitis A IgM Ab Non-reactive (Nonreactive) 08/31/23 04:10 Hep Bs Antigen Non-reactive (Nonreactive) 08/31/23 04:10 Hep B Core IgM Ab Non-reactive (Nonreactive) 08/31/23 04:10 Hepatitis C Antibody Non-reactive (Nonreactive) 08/31/23 04:10 Human Metapneumovir PCR Not detected (NOT DETECT) 08/26/23 15:00 Influenza A (H1) PCR Not detected (NOT DETECT) 08/26/23 15:00 Influ A (H1/09) PCR Not detected (NOT DETECT) 08/26/23 15:00 Influenza A (H3) PCR Not detected (NOT DETECT) 08/26/23 15:00 Influenza Type A (PCR) Not detected (NOT DETECT) 08/26/23 15:00 Influenza Type B (PCR) Not detected (NOT DETECT) 08/26/23 15:00 M. pneumoniae (PCR) Not detected (NOT DETECT) 08/26/23 15:00 Parainfluenza 1 (PCR) Not detected (NOT DETECT) 08/26/23 15:00 Parainfluenza 2 (PCR) Not detected (NOT DETECT) 08/26/23 15:00 Parainfluenza 3 (PCR) Not detected (NOT DETECT) 08/26/23 15:00 Parainfluenza 4 (PCR) Not detected (NOT DETECT) 08/26/23 15:00 RSV Type A (PCR) Not detected (NOT DETECT) 08/26/23 15:00 RSV Type B (PCR) Not detected (NOT DETECT) 08/26/23 15:00 Entero/Rhino (PCR) Not detected (NOT DETECT) 08/26/23 15:00 SARS-CoV-2 (PCR) Not detected (NOT DETECT) 08/26/23 15:00 Blood Type B Positive 09/07/23 09:21 Rho(D) Type Rh positive 09/07/23 09:21 Antibody Screen Negative 09/07/23 09:21 Crossmatch See Detail 09/07/23 09:21 A&P Assessment and plan (1) Atrial fibrillation with RVR: Currently the patient is in sinus rhythm. Because of the hypotension, recent dig toxicity, we may continue to hold off on any medications at this point. Continue close monitoring. (2) Hypotension: Patient is off the dopamine. Systolic blood pressures in the 80s. Patient seems to be comfortable. The urine output seems to be satisfactory Qualifiers: Hypotension type: unspecified hypotension type Qualified Code(s): I95.9 - Hypotension, unspecified (3) CHF (congestive heart failure): May be treated with as needed Lasix. Patient still requiring high flow oxygen by nasal cannula. Qualifiers: Heart failure chronicity: chronic Heart failure type: unspecified Qualified Code(s): I50.9 - Heart failure, unspecified (4) ASHD (arteriosclerotic heart disease): Patient currently has no chest pain. We may consider doing some form of noninvasive cardiac workup, when she is little more stable. May continue on the current measures. (5) Thrombocytopenia: Remaining low in the 60s (6) Wall motion abnormality of inferior wall of left ventricle: May suggest underlying coronary disease. Patient is currently asymptomatic. Consider doing a Myocardial perfusion imaging, once her clinical status is more stable. Plan May continue on the other current management. Attestations Medical Necessity Statement*: Disposition as per the primary Coding Level of Care Code 32261 Diagnoses Atrial fibrillation with RVR I48.91 Hypotension, unspecified hypotension type I95.9 Hypotension type: unspecified hypotension type Acute on chronic congestive heart failure, unspecified heart failure type I50.9 Heart failure chronicity: chronic Heart failure type: unspecified ASHD (arteriosclerotic heart disease) I25.10 Thrombocytopenia D69.6 Wall motion abnormality of inferior wall of left ventricle R94.30
--- NOTE | 2023-09-08 10:24 | PC.NURSE ---
weaned off levophed for now Dr Grande in to see pt after he exam pt requested to him to be transfered to [facility] ... primary doctor notified of pt request
--- NOTE | 2023-09-08 10:27 | PC.SLP ---
Spoke with nursing. Nursing reported mucus with pill pieces in it. Not safe at this time to trial liquids/solids, per nurse. Recommend MBS if not transferred. Nursing reported pt wishes to be transferred.
[2023-09-08 11:55] LABS: Glucose Point of Care 131 mg/dL (70-110)
--- NOTE | 2023-09-08 14:08 | P.PN_ITS ---
Subjective 2 Subjective: Overnight patient had episodes of worsening hypoxia, with increased oxygen requirements, nursing staff tell me that she had a significant episode of coughing which she coughed up pieces of pills, they think, currently she is alert to person, to place, not to time, she can follow commands she tells me she feels significantly better, discussed my concerns for possible aspiration pneumonitis as a cause of her worsening respiratory status she is currently down to 9 L, still on Levophed will attempt to wean off Levophed she was off Levophed for a significant period of the time yesterday, but overnight she was put back on it due to concerns for hypotension, Vitals/I&O/Wt Last Vital Signs Temp 97.9 F 09/08/23 07:30 Pulse 90 09/08/23 14:01 Resp 16 09/08/23 13:47 BP 86/50 09/08/23 12:00 Pulse Ox 92 09/08/23 14:01 O2 Del Method High Flow Nasal Cannula 09/08/23 13:47 O2 Flow Rate 9 09/08/23 13:47 FiO2 50 09/08/23 14:01 09/07/23 09/08/23 09/08/23 22:59 06:59 14:59 Intake Total 418.75 / 9023.068 6597.617 / 2774.259 1262.933 / 1262.933 Output Total 1999 / 1999 100 / 2100 1320 / 1320 Balance -1581.25 / -560.552 7257.617 / 674.259 -57.067 / -57.067 Weight last 48 hrs Weight 65.9 kg Weight 67 kg Physical Exam 2 Const: COMMON NORMALS: no acute distress and patient oriented x3 Resp: COMMON NORMALS: normal respiratory effort, No retractions, No use of accessory muscles and clear to auscultation bilaterally AUSCULTATION: clear to auscultation bilaterally Cardio: COMMON NORMALS: regular rate, regular rhythm, S1 normal heart sound present and S2 normal heart sound present RATE: regular rate RHYTHM: r egular rhythm HEART SOUNDS: S1 normal heart sound present and S2 normal heart sound present GI: COMMON NORMALS: Normal to inspection, nondistended, normoactive bowel sounds present and non-tender Extremity: COMMON NORMALS: no pedal edema Neuro: COMMON NORMALS: patient oriented x3 Psych: COMMON NORMALS: mental status grossly normal Urinary Catheter Management: Hooper: Cath Placed During This Visit: yes Reason for Continuing Indwelling Catheter: Accurate Measurement of Urinary Output in Critically Ill Patients Urinary Catheter Date of Insertion: 08/25/23 Urinary Catheter Time of Insertion: 22:59 Data 09/08/23 02:58 09/08/23 02:58 A&P Assessment and plan (1) Hypotension: -Likely multifactorial - adrenal insufficiency,diureses -midodrine 10mg 3 times daily neck ? Wean Levophed ? hydrocortisone, fludrocortisone Qualifiers: Hypotension type: unspecified hypotension type Qualified Code(s): I95.9 - Hypotension, unspecified (2) Enterocolitis: Resolved CT/CT abdomen pelvis w con* [id number] IMPRESSION: New low-density wall thickening seen through much of the colon as well as portions of small bowel raising consideration of enterocolopathy of portal hypertension, enterocolitis (either infectious/inflammatory or ischemic) , or angioedema. Mild increase in ascites which remains small. Large gallstone again noted within gallbladder. Fatty liver. -Gallbladder ultrasound IMPRESSION: 1. Extremely difficult evaluation of the RIGHT upper quadrant due to body habitus. 2. Cholelithiasis without acute cholecystitis. No bile duct dilatation. 3. Cirrhotic liver with hepatic steatosis. (3) Hypokalemia: Replace hypokalemia. Has received some magnesium. Recheck magnesium level. (4) Hypomagnesemia: Received supplementation. Recheck level. (5) Adrenal insufficiency: as above. (6) Acquired hypothyroidism: TSH 5.33 (7) Wall motion abnormality of inferior wall of left ventricle: - History of severe coronary artery disease one-vessel disease, distal RCA treated with balloon and drug-eluting stent, back in 2019 Echocardiogram - Normal LV size with a slightly diminished ejection fraction of 50% (visual). Mild left-ventricular hypertrophy. Wall motion abnormalities as mentioned above Moderate mitral annular calcification. Normal RV size and ejection fraction There is no pericardial effusion. There are no intracardiac masses. Compared to the study from 06/27/2023, the wall motion abnormalities appear to be new Plan ? Serial EKGs, serial troponins, telemetry monitoring ? Aspirin, Plavix on hold -Given wall motion abnormalities, consulted cardiology (8) Acute hypoxic respiratory failure: -Acute hypoxic respiratory failure ? With development of acute respiratory distress syndrome -Secondary to fluid overload, pulmonary edema, systolic CHF neck -BNP over 30,000, chest x-ray showing pulm vascular congestion, resolving - pneumonia, given leukocytosis elevated Pro-Reilly, CRP, resolved -Now with A-fib with RVR, back into normal sinus rhythm ? Chest x-ray shows improving pulmonary vascular congestion ? Plan -Currently on Levophed at 2 ? Currently on 9 L, BiPAP as needed ? Fluid restrictions at 1000 cc, has diuresed over 9 L negative ? Continue albumin ?Hold Lasix for today -monitor creatinine monitor urine output monitor potassium ?monitor fluid status, monitor creatinine, -Continue fludrocortisone, ? Continue Levophed to maintain MAP greater than 65 -De-escalated to Augmentin -Follow-up blood cultures - verapamil on hold -Continue to monitor respiratory status closely -Full code -Eliquis for DVT prophylaxis on hold -Status is stable, prognosis is guarded (9) Pulmonary edema: (10) Fluid overload: (11) CHF (congestive heart failure): Qualifiers: Heart failure type: unspecified Heart failure chronicity: chronic Qualified Code(s): I50.9 - Heart failure, unspecified (12) Acute respiratory distress syndrome: (13) Sepsis: (14) Shock: - Possibly septic shock, given pneumonia ? Component of cardiogenic shock, given wall motion abnormalities on echocardiogram -component of adrenal insufficiency (15) Atrial fibrillation with RVR: (16) Digoxin toxicity: resolved, Digoxin levels over 3, digoxin was stopped amiodarone was stopped continue to monitor monitor potassium (17) Acute anemia: Status post 1 unit PRBC (18) Thrombocytopenia: - Patient has anemia, thrombocytopenia -Hold aspirin, Plavix, Eliquis ? Hemolytic labs, ? Repeat CBC this evening (19) Hyperbilirubinemia: Liver ultrasound no acute findings, next ?we will monitor Plan CAD: Plavix if able to tolerate, asa CHF: Currently not in exacerbation A-fib: Normally on Eliquis CKD: Creatinine 1.1 appears close to baseline. At risk of acute kidney injury with hyperkalemia, low oral intake. Hypotension. Reassess renal function. Electrolytes. Acid-base. GERD: PPI by IV at the moment. COPD: Not in exacerbation. Breathing treatments scheduled and as needed. History of HTN: This appears to be remote history, she is for the most part been having low blood pressures. Currently hypotensive. Smoking addiction: Encourage cessation. Nicotine replacement as needed. DM2: Accu-Cheks every 6 hours, insulin sliding scale. Guesses carb diet. Diabetic neuropathy: Hold off gabapentin for now due to hypotension. HLD: statin for now - plan for today transfuse 1 units, prbc, continue to dileslee, sonnyue ppn Attestations 2 Medical Necessity Statement*: Patient requires hospitalization for acute respiratory failure, fluid overload, multifactorial shock, currently on PPN Diagnoses Hypotension, unspecified hypotension type I95.9 Hypotension type: unspecified hypotension type Enterocolitis K52.9 Hypokalemia E87.6 Hypomagnesemia E83.42 Adrenal insufficiency E27.40 Acquired hypothyroidism E03.9 Wall motion abnormality of inferior wall of left ventricle R94.30 Acute hypoxic respiratory failure J96.01 Pulmonary edema J81.1 Fluid overload E87.70 Acute on chronic congestive heart failure, unspecified heart failure type I50.9 Heart failure type: unspecified Heart failure chronicity: chronic Acute respiratory distress syndrome J80 Sepsis A41.9 Shock R57.9 Atrial fibrillation with RVR I48.91 Digoxin toxicity T46.0X1A Acute anemia D64.9 Thrombocytopenia D69.6 Hyperbilirubinemia E80.6
[2023-09-08] MEDS: FUROsemide 10 mg/mL SDV 4mL 40 MG IVP (15:41)
[2023-09-08 17:09] LABS: Glucose Point of Care 106 mg/dL (70-110)
[2023-09-08] MEDS: gabapentin 300 mg Capsule 600 MG PO (17:32)
[2023-09-08] MEDS: pantoprazole 40 mg SDV IVP (20:02)
[2023-09-08] MEDS: atorvastatin 40 mg Tablet 20 MG PO (20:03)
[2023-09-08] MEDS: mirtazapine 30 mg Tablet PO (20:03)
[2023-09-08] MEDS: norepinephrine 4 MG/250 ML BAG 30 MG IV (21:12)
[2023-09-09] VITALS (65 sets, daily range): BP systolic 82–114; BP diastolic 51–72; PULSE 82–109; RESP 11–26; TEMP 36.3–37.1; O2SAT 76–100
[2023-09-09] MEDS: insulin lispro 100 unit/1 mL SUBCUT (00:13)
[2023-09-09 00:14] LABS: Glucose Point of Care 183 mg/dL (70-110)
[2023-09-09] MEDS: cyclobenzaprine 10 mg Tablet 5 MG PO ×2 (00:17→20:07)
[2023-09-09] MEDS: ipratropium-albuterol 3 mL Neb INHALATION ×4 (02:23→19:25)
[2023-09-09] MEDS: magnesium lactate 84 mg Tablet PO ×2 (03:13→13:51)
[2023-09-09] MEDS: midodrine 5 mg TABLET 10 MG PO ×3 (03:13→20:08)
[2023-09-09 04:56] LABS: Basophils % 0.3 %; Eosinophils # 0.1 10^3/uL (0.0-0.8); Eosinophils % 1.4 %; Hematocrit 24.5 % (36-47); Lymphocytes # 2.1 10^3/uL (0.8-4.8); Lymphocytes % 24.2 %; Mean Corpuscular HGB Conc 31.4 g/dL (30-55); Mean Corpuscular Hemoglobin 30.8 pg (27-33); Mean Platelet Volume 13.7 fL (7.4-10.4); Monocytes # 0.7 10^3/uL (0.2-0.9); Neutrophils # 5.72 10^3/uL (1.8-7.7); Neutrophils % 65.3 %; Nucleated Red Blood Cells % 0.3 %; Platelet Count 62 10^3/cmm (157-399); Red Cell Distribution Width 15.5 % (12.1-15.1); White Blood Count 8.76 10^3/uL (3.29-11.43)
[2023-09-09 05:05] LABS: C Reactive Protein 22.2 mg/L (0.0-4.9)
[2023-09-09 05:06] LABS: Alanine Aminotransferase 14 U/L (0-33); Alkaline Phosphatase 78 U/L (35-105); Anion Gap 12.4 (5-19); Aspartate Amino Transferase 42 U/L (0-32); Blood Urea Nitrogen 41 mg/dL (8-23); Calcium 9.9 mg/dL (8.5-10.5); Carbon Dioxide 38 mmol/L (22-29); Chloride 86 mmol/L (98-107); Creatinine Clr Calc Pharmacy 63.7521; Globulin 1.4 g/dL (1.3-4.6); Glomerular Filtration Rate 123.1 mL/min (90-130); Glucose 76 mg/dL (65-115); Magnesium 2.4 mg/dL (1.7-2.3); Osmolality Calculated 287 mOsm/kg (285-295); Phosphorus 2.8 mg/dL (2.5-4.5); Sodium 134 mmol/L (136-145); Total Bilirubin 1.2 mg/dL (0.15-1.2); Total Protein 6.4 g/dL (6.6-8.7)
[2023-09-09] MEDS: hydrocortisone 10 mg Tablet PO (05:11)
[2023-09-09] MEDS: levothyroxine 125 mcg Tablet PO (05:11)
[2023-09-09] MEDS: folic acid 1 mg Tablet PO (05:11)
[2023-09-09 05:12] LABS: Potassium 2.4 mmol/L (3.5-5.1)
[2023-09-09 05:20] LABS: Glucose Point of Care 120 mg/dL (70-110)
[2023-09-09 05:43] LABS: Procalcitonin 0.41 ng/mL (0-0.5)
[2023-09-09 05:52] LABS: NT Pro B Type Natriuretic Pept > 35000 pg/mL (0-125)
[2023-09-09] MEDS: potassium chloride premix 100 ML 25 MEQ IV (06:04)
--- NOTE | 2023-09-09 07:00 | XR_ITS ---
WS: [id number] PORTABLE CHEST HISTORY: sob COMPARISON: 09/07/2023 LEFT PICC line in good position with tip near the caval atrial junction. Lung volumes are decreased. Coarse interstitial thickening throughout both lungs without improvement. These findings have progres sed over the most recent examinations suggesting superimposed acute pulmonary edema on mild pulmonary fibrosis. No pleural effusion or pneumothorax. Cardiac size: Normal. Mediastinum/Aorta: Mild atherosclerosis aorta. No osseous abnormality seen. IMPRESSION: 1. Interval development of pulmonary edema superimposed on mild pulmonary fibrosis. 2. No pneumonia.
[2023-09-09] MEDS: albumin 25 G/100 ML BAG 60 G IV ×3 (07:30→22:52)
--- NOTE | 2023-09-09 08:29 | CT_ITS ---
WS: [id number] CTA OF THE CHEST WITH PULMONARY EMBOLISM PROTOCOL TECHNIQUE: High-resolution contrast enhanced CTA of the chest with coronal and sagittal reformatted i tyrees with pulmonary embolism protocol. MIP images are also reviewed. CLINICAL INFORMATION: resp failure COMPARISON: None. DLP: 308.[address] scans at [facility] use at least one of these dose optimization techniques: automated e xposure control; mA and/or kV adjustment per patient size (includes targeted exams where dose is matc hed to clinical indication); or iterative reconstruction. FINDINGS: Cardiomegaly. Proximal main pulmonary arteries are patent. Normal segmental and subsegmental pulmonar y arteries. No evidence of pulmonary embolus. Aortic calcification. Coronary calcification. Enlarged mediastinal lymph nodes likely reactive. Partially visualized cholelithiasis. Postoperative changes at the GE junction. Small esophageal hiata l hernia. Moderate chronic emphysematous changes. Patchy airspace infiltrates in both lower lobes bright gula and LEFT upper lobe laterally. Recommend correlation for pneumonia. Interstitial thickening in b oth lungs likely due to edema. Moderate thoracic kyphosis. IMPRESSION: 1. No evidence of pulmonary embolus. 2. Patchy bilateral lower lobe airspace infiltrates extending into the LEFT upper lobe and lingula. Recommend correlation for pneumonia. 3. Interstitial edema in both lungs. 4. Cardiomegaly. 5. Enlarged anterior mediastinal peribronchiolar and hilar lymph nodes likely reactive.
[2023-09-09] MEDS: fludrocortisone 0.1 mg Tablet 0.100000000000000006 MG PO (08:50)
[2023-09-09] MEDS: gabapentin 300 mg Capsule 900 MG PO (08:50)
[2023-09-09] MEDS: calcium carbonate 500 mg Chew Tablet 1000 MG PO (08:51)
[2023-09-09] MEDS: amoxicillin-clav 875-125 mg Tablet 1 TAB PO (08:51)
[2023-09-09] MEDS: HYDROcodone-acetaminophen 5-325 mg Tablet 1 TAB PO (08:56)
[2023-09-09] MEDS: potassium phosphate (mEq K) 40 MEQ in sodium chloride 0.9% (100 ml) 100 ML 27.2699999999999996 MEQ IV (09:07)
[2023-09-09] MEDS: FUROsemide 10 mg/mL SDV 4mL 40 MG IVP ×2 (10:15→17:13)
[2023-09-09] MEDS: AA-Dex 4.25%-5% w/Lytes 1,000 ML with multivitamin inj 5 ML 83 ML IV ×2 (11:13→23:58)
[2023-09-09] MEDS: iohexol 350 mg/mL 500 mL Btl (per mL) IV (11:52)
--- NOTE | 2023-09-09 11:57 | PC.SLP ---
Unable to assess the pt at this time. Pt coming back from rest/procedure.
--- NOTE | 2023-09-09 12:11 | PC.NURSE ---
After administration of PRN hydrocodone, patient has become very lethargic, difficulty staying awake. Vitals are within normal limits and no concerns for respiratory status. Nurse alerted Dr stephens. recieveid orders to reduce the dose of the prn hydrocodone and conitnue to monitor. Patient has 3 PO medications due right now. Nurse is unsure of patient can safely swallow at this time due to mental status, patient also states that she doesn''t think she can safely swallow. NUrse will administer medications when mental status improves, and alerted Dr stephens to delay in receiving midodrine, oral potassium, and calcitrol.
[2023-09-09 12:12] LABS: Glucose Point of Care 123 mg/dL (70-110)
--- NOTE | 2023-09-09 12:53 | PM.PN ---
Subjective Subjective: Patient was seen this morning, currently on high flow, she is alert to person, to place, to time she follows all commands ? I had a detailed discussion with her about her respiratory failure we discussed that she continues to have increased functional requirements, likely multifactorial from fluid overload which is improving but she requires further diuresis, my concerns for possible aspiration pneumonia given her episodes of aspiration or worsening respiratory failure over the weekend, and with concerns for acute respiratory distress ? I did had a discussion with her about her overall goals of care, we discussed continuing medical interventions, continue diuresis antibiotics continue TPN, continue medical interventions, versus easing her pain easing her suffering allowing her to pass away on comfort care ? I had a detailed discussion with her about all the options her wishes to go home ? I advised her that in her current state if she were to go home she would likely pass away from acute respiratory failure as she has high oxygen requirements however she wanted to go home on hospice that certainly would be a reasonable option, if that is her wish ? We discussed the other option of continuing medical intervention and optimizing her placement at a long-term care facility such as [facility] as her oxygen requirements are high, and she needs BiPAP intermittently for shortness of breath and at times throughout the day, and scheduled during the night -After discussing with her the risk and benefits of all options, she voiced understanding, all questions answered, she wants to go to [facility] in [place], she wants to continue medical interventions, wants to remain a full code -She remains on 2 of Levophed, will wean off ? Ordered CT angiogram of the chest, ? Will have speech therapy evaluate her as she has a high risk of aspiration will order modified barium swallow -Discussed severe hypokalemia, will replace IV -Will order CT angiogram of the chest ? Keep n.p.o. until speech therapy eval Vitals/I&O/Wt Last Vital Signs Temp 98.0 F 09/09/23 12:00 Pulse 89 09/09/23 12:00 Resp 19 H 09/09/23 12:00 BP 94/57 09/09/23 12:00 Pulse Ox 94 09/09/23 12:00 O2 Del Method BiPAP 09/09/23 12:00 O2 Flow Rate 10 09/09/23 07:45 FiO2 50 09/09/23 12:00 09/08/23 09/09/2324 22:59 06:59 14:59 Intake Total 456.625 / 5784.329 0359.225 / 3253.783 1022.208 / 1022.208 Output Total 1000 / 2320 1000 / 3320 900 / 900 Balance -543.375 / -600.442 534.225 / -66.217 122.208 / 122.208 Weight last 48 hrs Weight 65.431 kg Weight 65.9 kg Physical Exam Const: COMMON NORMALS: no acute distress and patient oriented x3 Resp: COMMON NORMALS: normal respiratory effort, No retractions and No use of accessory muscles AUSCULTATION: crackles and wheezes Cardio: COMMON NORMALS: regular rate, regular rhythm, S1 normal heart sound present and S2 normal heart sound present RATE: regular rate RHYTHM: regular rhythm HEART SOUNDS: S1 normal heart sound present and S2 normal heart sound present GI: COMMON NORMALS: Normal to inspection, nondistended, normoactive bowel sounds present and non-tender Extremity: COMMON NORMALS: no pedal edema Neuro: COMMON NORMALS: patient oriented x3 Psych: COMMON NORMALS: mental status grossly normal Urinary Catheter Management: Hooper: Cath Placed During This Visit: yes Reason for Continuing Indwelling Catheter: Accurate Measurement of Urinary Output in Critically Ill Patients Urinary Catheter Date of Insertion: 08/25/23 Urinary Catheter Time of Insertion: 22:59 Data 09/09/23 03:53 09/09/23 03:53 A&P Assessment and plan (1) Hypotension: -Likely multifactorial - adrenal insufficiency,diureses -midodrine 10mg 3 times daily neck ? Wean Levophed ? hydrocortisone, fludrocortisone Qualifiers: Hypotension type: unspecified hypotension type Qualified Code(s): I95.9 - Hypotension, unspecified (2) Enterocolitis: Resolved CT/CT abdomen pelvis w con* [id number] IMPRESSION: New low-density wall thickening seen through much of the colon as well as portions of small bowel raising consideration of enterocolopathy of portal hypertension, enterocolitis (either infectious/inflammatory or ischemic) , or angioedema. Mild increase in ascites which remains small. Large gallstone again noted within gallbladder. Fatty liver. -Gallbladder ultrasound IMPRESSION: 1. Extremely difficult evaluation of the RIGHT upper quadrant due to body habitus. 2. Cholelithiasis without acute cholecystitis. No bile duct dilatation. 3. Cirrhotic liver with hepatic steatosis. (3) Hypokalemia: Replace hypokalemia. Has received some magnesium. Recheck magnesium level. (4) Hypomagnesemia: Received supplementation. Recheck level. (5) Adrenal insufficiency: as above. (6) Acquired hypothyroidism: TSH 5.33 (7) Wall motion abnormality of inferior wall of left ventricle: - History of severe coronary artery disease one-vessel disease, distal RCA treated with balloon and drug-eluting stent, back in 2019 Echocardiogram - Normal LV size with a slightly diminished ejection fraction of 50% (visual). Mild left-ventricular hypertrophy. Wall motion abnormalities as mentioned above Moderate mitral annular calcification. Normal RV size and ejection fraction There is no pericardial effusion. There are no intracardiac masses. Compared to the study from 06/27/2023, the wall motion abnormalities appear to be new Plan ? Serial EKGs, serial troponins, telemetry monitoring ? Aspirin, Plavix on hold -Given wall motion abnormalities, consulted cardiology -For now medical management (8) Acute hypoxic respiratory failure: -Acute hypoxic respiratory failure ? With development of acute respiratory distress syndrome -Secondary to fluid overload, pulmonary edema, systolic CHF -Now with concerns of aspiration pneumonia -BNP over 30,000, chest x-ray showing pulm vascular congestion, resolving - pneumonia, given leukocytosis elevated Pro-Reilly, CRP, resolved -Now with A-fib with RVR, back into normal sinus rhythm ? Chest x-ray shows improving pulmonary vascular congestion ? Plan -Currently on Levophed at 2, will wean off ? Currently on 10 L, BiPAP as needed, scheduled during the night ? Fluid restrictions at 1000 cc, has diuresed over net 9 L negative ? Continue albumin ? Will receive Lasix today, replace potassium, recheck potassium in the afternoon, will decide to diurese again in the afternoon -monitor creatinine monitor urine output monitor potassium ?monitor fluid status, monitor creatinine, -Continue fludrocortisone, ?Start Zosyn for aspiration pneumonia -Follow-up blood cultures - verapamil on hold -Continue to monitor respiratory status closely -Full code -Eliquis for DVT prophylaxis on hold, SCDs for DVT prophylaxis -Status is stable, prognosis is guarded (9) Pulmonary edema: (10) Fluid overload: (11) CHF (congestive heart failure): Qualifiers: Heart failure type: unspecified Heart failure chronicity: chronic Qualified Code(s): I50.9 - Heart failure, unspecified (12) Acute respiratory distress syndrome: (13) Sepsis: (14) Shock: - Possibly septic shock, given pneumonia, multifactorial given adrenal insufficiency, diuresis ? Component of cardiogenic shock, given wall motion abnormalities on echocardiogram -component of adrenal insufficiency (15) Atrial fibrillation with RVR: (16) Digoxin toxicity: resolved, Digoxin levels over 3, digoxin was stopped amiodarone was stopped continue to monitor monitor potassium (17) Acute anemia: Status post 1 unit PRBC (18) Thrombocytopenia: - Patient has anemia, thrombocytopenia -Hold aspirin, Plavix, Eliquis ? Hemolytic labs, ? Repeat CBC this evening (19) Hyperbilirubinemia: Liver ultrasound no acute findings, next ?we will monitor (20) Aspiration pneumonia: (21) Protein calorie malnutrition: (22) Physical deconditioning: - PT OT -Currently on peripheral nutrition, Plan CAD: Plavix if able to tolerate, asa CHF: as above A-fib: Normally on Eliquis , no hold CKD: GERD: PPI by IV at the moment. COPD: Not in exacerbation. Breathing treatments scheduled and as needed. History of HTN: This appears to be remote history, she is for the most part been having low blood pressures. Currently hypotensive. Smoking addiction: Encourage cessation. Nicotine replacement as needed. DM2: Accu-Cheks every 6 hours, insulin sliding scale. Guesses carb diet. Diabetic neuropathy: Hold off gabapentin for now due to hypotension. HLD: statin for now Patient was seen this morning, currently on high flow, she is alert to person, to place, to time she follows all commands ? I had a detailed discussion with her about her respiratory failure we discussed that she continues to have increased functional requirements, likely multifactorial from fluid overload which is improving but she requires further diuresis, my concerns for possible aspiration pneumonia given her episodes of aspiration or worsening respiratory failure over the weekend, and with concerns for acute respiratory distress ? I did had a discussion with her about her overall goals of care, we discussed continuing medical interventions, continue diuresis antibiotics continue TPN, continue medical interventions, versus easing her pain easing her suffering allowing her to pass away on comfort care ? I had a detailed discussion with her about all the options her wishes to go home ? I advised her that in her current state if she were to go home she would likely pass away from acute respiratory failure as she has high oxygen requirements however she wanted to go home on hospice that certainly would be a reasonable option, if that is her wish ? We discussed the other option of continuing medical intervention and optimizing her placement at a long-term care facility such as [facility] as her oxygen requirements are high, and she needs BiPAP intermittently for shortness of breath and at times throughout the day, and scheduled during the night -After discussing with her the risk and benefits of all options, she voiced understanding, all questions answered, she wants to go to [facility] in [place], she wants to continue medical interventions, wants to remain a full code -She remains on 2 of Levophed, will wean off ? Ordered CT angiogram of the chest, ? Will have speech therapy evaluate her as she has a high risk of aspiration will order modified barium swallow -Discussed severe hypokalemia, will replace IV -Will order CT angiogram of the chest ? Keep n.p.o. until speech therapy eval Attestations Medical Necessity Statement*: Patient requires hospitalization for acute respiratory failure secondary to fluid overload, aspiration pneumonia, Diagnoses Hypotension, unspecified hypotension type I95.9 Hypotension type: unspecified hypotension type Enterocolitis K52.9 Hypokalemia E87.6 Hypomagnesemia E83.42 Adrenal insufficiency E27.40 Acquired hypothyroidism E03.9 Wall motion abnormality of inferior wall of left ventricle R94.30 Acute hypoxic respiratory failure J96.01 Pulmonary edema J81.1 Fluid overload E87.70 Acute on chronic congestive heart failure, unspecified heart failure type I50.9 Heart failure type: unspecified Heart failure chronicity: chronic Acute respiratory distress syndrome J80 Sepsis A41.9 Shock R57.9 Atrial fibrillation with RVR I48.91 Digoxin toxicity T46.0X1A Acute anemia D64.9 Thrombocytopenia D69.6 Hyperbilirubinemia E80.6 Aspiration pneumonia J69.0 Protein calorie malnutrition E46 Physical deconditioning R53.81
[2023-09-09] MEDS: piperacillin-tazobactam 3.375 GM in sodium chloride 0.9% (plus) 50 ML IV ×2 (13:43→20:22)
[2023-09-09] MEDS: potassium chloride oral liq 20 mEq/15 mL UDC 40 MEQ PO (13:51)
[2023-09-09] MEDS: calcitriol 0.25 mcg Capsule PO (13:51)
--- NOTE | 2023-09-09 15:14 | PC.OT ---
OT TREATMENT ATTEMPTED; HOLD OT TODAY PATIENT IS ON BIPAP AND UNABLE TO PARTICIPATE AT THIS TIME.
[2023-09-09 16:00] LABS: Anion Gap 13.8 (5-19); Blood Urea Nitrogen 38 mg/dL (8-23); Calcium 10.1 mg/dL (8.5-10.5); Carbon Dioxide 38 mmol/L (22-29); Chloride 88 mmol/L (98-107); Glomerular Filtration Rate 123.1 mL/min (90-130); Glucose 85 mg/dL (65-115); Osmolality Calculated 288 mOsm/kg (285-295); Potassium 4.8 mmol/L (3.5-5.1); Sodium 135 mmol/L (136-145)
[2023-09-09 17:00] LABS: Glucose Point of Care 110 mg/dL (70-110)
[2023-09-09] MEDS: lidocaine 1% 5 ML in potassium chloride premix 100 ML 52.5 ML IV (17:13)
--- NOTE | 2023-09-09 17:47 | PC.SLP ---
UNable to assess. Pt unable to maintain alertness.
--- NOTE | 2023-09-09 18:26 | PM.PN ---
Subjective Subjective: Patient seems to getting more short of breath. She is requiring BiPAP to maintain the oxygenation. No chest pain. No fever or chills. Patient had a CT of the chest revealing bilateral airspace densities Medications: Medication Review Details: Current Medications Acetaminophen (Acetaminophen 325 Mg Tablet) 650 mg PO Q6H PRN PRN Reason: Mild/Mod Pain Or Temp >/= 101 Last Admin: 09/01/23 21:32 Dose: 650 mg Hydrocodone Bitart/Acetaminophen (Hydrocodone-Acetaminophen 5-325 Mg Tablet) 0.5 tab PO Q4H PRN PRN Reason: MODERATE PAIN Albuterol/Ipratropium (Ipratropium-Albuterol 3 Ml Neb) 3 ml INHALATION Q6H PRN PRN Reason: SHORTNESS OF BREATH Albuterol/Ipratropium (Ipratropium-Albuterol 3 Ml Neb) 3 ml INHALATION Q6H.RESP [facility] Last Admin: 09/09/23 13:00 Dose: 3 ml Aspirin (Aspirin 81 Mg Ec Tablet) 81 mg PO DAILY [facility] Last Admin: 09/02/23 10:01 Dose: 81 mg Atorvastatin Calcium (Atorvastatin 40 Mg Tablet) 20 mg PO BEDTIME [facility] Last Admin: 09/08/23 20:03 Dose: 20 mg Calcitriol (Calcitriol 0.25 Mcg Capsule) 0.25 mcg PO MoWeFr [facility] Last Admin: 09/09/23 13:51 Dose: 0.25 mcg Calcium Carbonate (Calcium Carbonate 500 Mg Chew Tablet) 1,000 mg PO DAILY [facility] Last Admin: 09/09/23 08:51 Dose: 1,000 mg Clopidogrel Bisulfate (Clopidogrel 75 Mg Tablet) 75 mg PO DAILY [facility] Last Admin: 09/02/23 10:01 Dose: 75 mg Cyclobenzaprine HCl (Cyclobenzaprine 10 Mg Tablet) 5 mg PO TID PRN PRN Reason: MUSCLE SPASMS Last Admin: 09/09/23 00:17 Dose: 5 mg Fludrocortisone Acetate (Fludrocortisone 0.1 Mg Tablet) 0.1 mg PO DAILY [facility] Last Admin: 09/09/23 08:50 Dose: 0.1 mg Folic Acid (Folic Acid 1 Mg Tablet) 1 mg PO QAM [facility] Last Admin: 09/09/23 05:11 Dose: 1 mg Gabapentin (Gabapentin 300 Mg Capsule) 900 mg PO DAILY [facility] Last Admin: 09/09/23 08:50 Dose: 900 mg Gabapentin (Gabapentin 300 Mg Capsule) 600 mg PO QPM [facility] Last Admin: 09/09/23 17:42 Dose: Not Given Hydrocortisone (Hydrocortisone 10 Mg Tablet) 10 mg PO QAM [facility] Last Admin: 09/09/23 05:11 Dose: 10 mg norepinephrine (Levophed) 4 mg in 250 mls @ 0 mls/hr IV .Q0M [facility]; Protocol Last Titration: 09/09/23 10:41 Dose: 0 mcg/min, 0 mls/hr Multivitamins 5 ml/ AA-Dex 4. (25%-5% w/Lytes) 1,005 mls @ 83 mls/hr IV .Q12H7M [facility]; Protocol Last Admin: 09/09/23 11:13 Dose: 83 mls/hr fat emulsions 20% (Intralipid 20%) 100 mls @ 8.333 mls/hr IV Q24H [facility] Last Admin: 09/09/23 11:14 Dose: 8.2 mls/hr Dextrose (D5w) 500 mls @ 0 mls/hr IV ONCE PRN; Protocol PRN Reason: Adult Acute Hypoglycemia Prot Dextrose (D10w) 125 mls @ 750 mls/hr IV PRN PRN; Protocol PRN Reason: Adult Acute Hypoglycemia Nursing Protocol Dextrose (D10w) 250 mls @ 1,000 mls/hr IV PRN PRN; Protocol PRN Reason: Adult Acute Hypoglycemia Nursing Protocol Albumin Human (Albumin) 25 g in 100 mls @ 60 mls/hr IV Q8H [facility] Last Admin: 09/09/23 17:13 Dose: 60 mls/hr Piperacillin Sod/Tazobactam (Sod 3.375 gm/ Sodium Chloride) 50 mls @ 12.5 mls/hr IV Q8H [facility] Last Admin: 09/09/23 13:43 Dose: 12.5 mls/hr Lidocaine HCl 5 ml/ Potassium (Chloride) 105 mls @ 52.5 mls/hr IV ONCE ONE Stop: 09/09/23 19:59 Last Admin: 09/09/23 17:13 Dose: 52.5 mls/hr Insulin Human Lispro (Insulin Lispro 100 Unit/1 Ml) 0 unit SUBCUT Q6H [facility]; Protocol Last Admin: 09/09/23 17:16 Dose: Not Given Lanolin (Lanolin Oint 7 Gm) 1 applic TOPICAL PRN PRN PRN Reason: DRYNESS Last Admin: 08/31/23 05:01 Dose: 1 applic Levothyroxine Sodium (Levothyroxine 125 Mcg Tablet) 125 mcg PO QAM [facility] Last Admin: 09/09/23 05:11 Dose: 125 mcg Magnesium Lactate (Magnesium Lactate 84 Mg Tablet) 84 mg PO Q12H [facility] Last Admin: 09/09/23 13:51 Dose: 84 mg Metoclopramide HCl (Metoclopramide 5 Mg/Ml Sdv 2 Ml) 5 mg IVP Q6H PRN PRN Reason: NAUSEA AND VOMITING Last Admin: 09/01/23 17:39 Dose: 5 mg Midodrine (Midodrine 5 Mg Tablet) 10 mg PO Q8H [facility] Last Admin: 09/09/23 13:51 Dose: 10 mg Mirtazapine (Mirtazapine 30 Mg Tablet) 30 mg PO BEDTIME [facility] Last Admin: 09/08/23 20:03 Dose: 30 mg Nicotine (Nicotine 21 Mg Patch) 1 patch TRANSDERMA DAILY PRN PRN Reason: WITHDRAWAL Nicotine Polacrilex (Nicotine 4 Mg Lozenge) 4 mg MUCOUS MEM Q4H PRN PRN Reason: NICOTINE CRAVINGS Ondansetron HCl (Ondansetron 2 Mg/Ml Sdv 2 Ml) 4 mg IVP Q8H PRN PRN Reason: vomiting, or N/V if npo Last Admin: 09/01/23 09:57 Dose: 4 mg Pantoprazole Sodium (Pantoprazole 40 Mg Sdv) 40 mg IVP Q24H [facility] Last Admin: 09/08/23 20:02 Dose: 40 mg Polyethylene Glycol (Polyethylene Glycol 3350 Pkt 17 Gm) 17 gm PO DAILY [facility] Last Admin: 09/09/23 10:17 Dose: Not Given Senna/Docusate Sodium (Sennosides-Docusate Tablet) 2 tab PO DAILY [facility] Last Admin: 09/09/23 10:17 Dose: Not Given Vitals/I&O/Wt Last Vital Signs Temp 98.8 F 09/09/23 17:30 Pulse 86 09/09/23 18:00 Resp 19 H 09/09/23 18:00 BP 105/64 09/09/23 18:00 Pulse Ox 93 09/09/23 18:00 O2 Del Method BiPAP 09/09/23 17:30 O2 Flow Rate 10 09/09/23 07:45 FiO2 50 09/09/23 17:30 09/09/23 09/09/23 09/09/23 06:59 14:59 22:59 Intake Total 1534.225 / 3253.783 1122.208 / 1122.208 Output Total 1000 / 3320 900 / 900 175 / 1075 Balance 534.225 / -66.217 222.208 / 222.208 -175 / 47.208 Weight last 48 hrs Weight 144 lb 4 oz Weight 145 lb 4.554 oz Physical Exam Narrative: GENERAL: The patient is alert and oriented to place and person. Not in any acute distress. Chronically ill looking. HEENT: Moderate pallor, no icterus or lymphadenopathy.Oral cavity: There are no mucous membrane lesions. NECK: Trachea appears to be central. No masses noted. No JVD or thyromegaly appreciated. RESPIRATORY: Chest is symmetrical. No intercostals muscle retraction or any accessory muscle activation. There is no chest wall tenderness. Breath sounds are heard bilaterally. The breath sounds are diminished in the bases. Scattered coarse crackles. BREASTS: Deferred. HEART: The heart sounds are normal. No S3 or S4. Short systolic murmur in the lower sternal border. No diastolic murmurs. No pericardial rub ABDOMEN: No vessel pulsations or distention. No tenderness. No organomegaly appreciated. Bowel sounds are normally heard. : Deferred. RECTAL: Deferred. LYMPHATIC: No lymphadenopathy noted in the neck. EXTREMITIES: No edema or cyanosis. No clubbing. MUSCULOSKELETAL: No acute joint deformities or swelling SKIN: Extensive superficial ecchymosis bilaterally in the extremities NEUROPSYCHIATRIC: The patient is alert and oriented x2. No focal motor deficits. Urinary Catheter Management: Hooper: Cath Placed During This Visit: yes Reason for Continuing Indwelling Catheter: Accurate Measurement of Urinary Output in Critically Ill Patients Urinary Catheter Date of Insertion: 08/25/23 Urinary Catheter Time of Insertion: 22:59 Data 09/09/23 03:53 09/09/23 15:12 Micro: Microbiology 09/06/23 16:30 E. coli Shiga-like Toxin (PCR) - Final Stool Campylobacter (PCR) - Final A&P Assessment and plan (1) Atrial fibrillation with RVR: Currently the patient is in sinus rhythm. Because of the hypotension, recent dig toxicity, we may continue to hold off on any medications at this point. Continue close monitoring. (2) CHF (congestive heart failure): Patient was given an extra dose of Lasix 40 mg this morning. Qualifiers: Heart failure type: unspecified Heart failure chronicity: chronic Qualified Code(s): I50.9 - Heart failure, unspecified (3) Hypotension: The blood pressure seems to be staying in the 80s. Still staying off the dopamine. Qualifiers: Hypotension type: unspecified hypotension type Qualified Code(s): I95.9 - Hypotension, unspecified (4) ASHD (arteriosclerotic heart disease): Patient currently has no chest pain. We may consider doing some form of noninvasive cardiac workup, when she is little more stable. May continue on the current measures. (5) Thrombocytopenia: Remaining low in the 60s (6) Wall motion abnormality of inferior wall of left ventricle: May suggest underlying coronary disease. Patient is currently asymptomatic. Consider doing a Myocardial perfusion imaging, once her clinical status is more stable. (7) Bilateral pneumonia: Antibiotic treatment as per the primary. Qualifiers: Pneumonia type: due to unspecified organism Lung location: lower lobe of lung Qualified Code(s): J18.9 - Pneumonia, unspecified organism Plan May continue on the other current management. Attestations Medical Necessity Statement*: Disposition as per the primary Coding Level of Care Code 07818 Diagnoses Atrial fibrillation with RVR I48.91 Acute on chronic congestive heart failure, unspecified heart failure type I50.9 Heart failure type: unspecified Heart failure chronicity: chronic Hypotension, unspecified hypotension type I95.9 Hypotension type: unspecified hypotension type ASHD (arteriosclerotic heart disease) I25.10 Thrombocytopenia D69.6 Wall motion abnormality of inferior wall of left ventricle R94.30 Pneumonia of both lower lobes due to infectious organism J18.9 Pneumonia type: due to unspecified organism Lung location: lower lobe of lung
--- NOTE | 2023-09-09 18:27 | PC.NURSE ---
Addendum entered by Jarocho Huff RN 09/09/23 19:04: Shift SUmmary: Went to CT (result in reports). Mental status has been variable, after PO pain medications she became lethargic for many hours and the became more alert. Later in shift became very lethargic again through no pain medications were given. SPeech therapy attempted to do swallowing assessment, but due to poor mental status they were unable to safely proceed. Some PO meds were late or held due to altered mental status. SPent most of the day on Bipap. New drake catheter placed. Total urine output has been 1400mL. Original Note: Shift SUmmary: Went to CT (result in reports). Mental status has been variable, after PO pain medications she became lethargic for many hours and the became more alert. Later in shift became very lethargic again through no pain medications were given. SPeech therapy attempted to do swallowing assessment, but due to poor mental status they were unable to safely proceed. Some PO meds were late or held due to altered mental status. SPent most of the day on Bipap. Total urine output has been 1075.
[2023-09-09] MEDS: acetaminophen 325 mg Tablet 650 MG PO (20:07)
[2023-09-09] MEDS: atorvastatin 40 mg Tablet 20 MG PO (20:07)
[2023-09-09] MEDS: mirtazapine 30 mg Tablet PO (20:07)
[2023-09-09] MEDS: pantoprazole 40 mg SDV IVP (20:17)
--- NOTE | 2023-09-09 20:55 | PC.NURSE ---
Aspiration Precautions: Pt is refusing HOB 30 degrees, states she can not rest like that. Importance explained to pt and she continues to refuse.
[2023-09-10] VITALS (57 sets, daily range): BP systolic 81–113; BP diastolic 48–84; PULSE 86–99; RESP 12–29; TEMP 36.5–36.7; O2SAT 84–99
[2023-09-10] MEDS: ipratropium-albuterol 3 mL Neb INHALATION ×4 (02:35→19:51)
[2023-09-10] MEDS: midodrine 5 mg TABLET 10 MG PO ×3 (03:24→17:44)
[2023-09-10] MEDS: acetaminophen 325 mg Tablet 650 MG PO ×2 (03:25→20:43)
[2023-09-10] MEDS: piperacillin-tazobactam 3.375 GM in sodium chloride 0.9% (plus) 50 ML IV ×3 (05:12→20:35)
[2023-09-10] MEDS: folic acid 1 mg Tablet PO (05:17)
[2023-09-10] MEDS: cyclobenzaprine 10 mg Tablet 5 MG PO ×2 (05:17→20:42)
[2023-09-10] MEDS: levothyroxine 125 mcg Tablet PO (05:17)
[2023-09-10] MEDS: hydrocortisone 10 mg Tablet PO (05:17)
[2023-09-10 05:24] LABS: Glucose Point of Care 119 mg/dL (70-110)
[2023-09-10 05:47] LABS: Basophils # 0.1 10^3/uL (0.0-0.1); Basophils % 0.6 %; Eosinophils # 0.2 10^3/uL (0.0-0.8); Eosinophils % 1.5 %; Hematocrit 23.6 % (36-47); Lymphocytes # 1.8 10^3/uL (0.8-4.8); Lymphocytes % 16.8 %; Mean Corpuscular HGB Conc 32.2 g/dL (30-55); Mean Corpuscular Hemoglobin 31.9 pg (27-33); Mean Corpuscular Volume 99.2 fl (85-98); Mean Platelet Volume 13.6 fL (7.4-10.4); Monocytes # 1.1 10^3/uL (0.2-0.9); Neutrophils # 7.43 10^3/uL (1.8-7.7); Nucleated Red Blood Cells % 0.3 %; Platelet Count 67 10^3/cmm (157-399); Red Blood Count 2.38 10^6/uL (3.85-5.65); Red Cell Distribution Width 14.9 % (12.1-15.1); White Blood Count 10.61 10^3/uL (3.29-11.43)
[2023-09-10 06:24] LABS: Alanine Aminotransferase 17 U/L (0-33); Albumin Level 5.2 g/dL (3.5-5.2); Alkaline Phosphatase 68 U/L (35-105); Anion Gap 15.7 (5-19); Aspartate Amino Transferase 44 U/L (0-32); Blood Urea Nitrogen 42 mg/dL (8-23); Calcium 10.1 mg/dL (8.5-10.5); Carbon Dioxide 34 mmol/L (22-29); Chloride 95 mmol/L (98-107); Creatinine Clr Calc Pharmacy 61.1554; Globulin 1.5 g/dL (1.3-4.6); Glomerular Filtration Rate 123.1 mL/min (90-130); Glucose 88 mg/dL (65-115); Magnesium 2.5 mg/dL (1.7-2.3); Osmolality Calculated 302 mOsm/kg (285-295); Phosphorus 3.1 mg/dL (2.5-4.5); Potassium 3.7 mmol/L (3.5-5.1); Sodium 141 mmol/L (136-145); Total Bilirubin 1.1 mg/dL (0.15-1.2); Total Protein 6.7 g/dL (6.6-8.7)
[2023-09-10 06:26] LABS: C Reactive Protein 26.9 mg/L (0.0-4.9)
[2023-09-10 06:27] LABS: NT Pro B Type Natriuretic Pept 28822 pg/mL (0-125)
[2023-09-10 06:28] LABS: Procalcitonin 0.34 ng/mL (0-0.5)
--- NOTE | 2023-09-10 07:00 | XRR_ITS ---
PROCEDURE INFORMATION: Exam: XR Chest Exam date and time: 09/10/2023 5:56 AM Age: 67 years old Clinical indication: Shortness of breath; Additional info: SOB TECHNIQUE: Imaging protocol: Radiologic exam of the chest. Views: 1 view. Total images: 1 COMPARISON: CT angio chest PE protcl [id number] 09/09/2023 11:44 AM FINDINGS: Tubes, catheters and devices: Left PICC line present with tip in the lower SVC. Lungs: Bilateral pulmonary opacities are again noted and appear unchanged. Pleural spaces: Unremarkable. No pleural effusion. No pneumothorax. Heart/Mediastinum: Heart is enlarged but stable when compared to the prior exam. Bones/joints: Osseous structures are unchanged from the prior exam. Intraperitoneal space: Postsurgical changes noted in the left upper abdomen. XR/XR chest 1V portable [id number] IMPRESSION: 1. Heart is enlarged but stable when compared to the prior exam. 2. Bilateral pulmonary opacities are again noted and appear unchanged.
[2023-09-10 08:11] LABS: Glucose Point of Care 102 mg/dL (70-110)
--- NOTE | 2023-09-10 08:23 | PM.PN ---
Subjective Subjective: Patient continues remain in sinus rhythm. She is still requiring high flow oxygen. No chest pain. Remains afebrile. Being treated for bilateral pneumonia. Medications: Medication Review Details: Current Medications Acetaminophen (Acetaminophen 325 Mg Tablet) 650 mg PO Q6H PRN PRN Reason: Mild/Mod Pain Or Temp >/= 101 Last Admin: 09/10/23 03:25 Dose: 650 mg Hydrocodone Bitart/Acetaminophen (Hydrocodone-Acetaminophen 5-325 Mg Tablet) 0.5 tab PO Q4H PRN PRN Reason: MODERATE PAIN Albuterol/Ipratropium (Ipratropium-Albuterol 3 Ml Neb) 3 ml INHALATION Q6H PRN PRN Reason: SHORTNESS OF BREATH Albuterol/Ipratropium (Ipratropium-Albuterol 3 Ml Neb) 3 ml INHALATION Q6H.RESP [facility] Last Admin: 09/10/23 07:29 Dose: 3 ml Aspirin (Aspirin 81 Mg Ec Tablet) 81 mg PO DAILY [facility] Last Admin: 09/02/23 10:01 Dose: 81 mg Atorvastatin Calcium (Atorvastatin 40 Mg Tablet) 20 mg PO BEDTIME [facility] Last Admin: 09/09/23 20:07 Dose: 20 mg Calcitriol (Calcitriol 0.25 Mcg Capsule) 0.25 mcg PO MoWeFr [facility] Last Admin: 09/09/23 13:51 Dose: 0.25 mcg Calcium Carbonate (Calcium Carbonate 500 Mg Chew Tablet) 1,000 mg PO DAILY [facility] Last Admin: 09/09/23 08:51 Dose: 1,000 mg Clopidogrel Bisulfate (Clopidogrel 75 Mg Tablet) 75 mg PO DAILY [facility] Last Admin: 09/02/23 10:01 Dose: 75 mg Cyclobenzaprine HCl (Cyclobenzaprine 10 Mg Tablet) 5 mg PO TID PRN PRN Reason: MUSCLE SPASMS Last Admin: 09/10/23 05:17 Dose: 5 mg Fludrocortisone Acetate (Fludrocortisone 0.1 Mg Tablet) 0.1 mg PO DAILY [facility] Last Admin: 09/09/23 08:50 Dose: 0.1 mg Folic Acid (Folic Acid 1 Mg Tablet) 1 mg PO QAM [facility] Last Admin: 09/10/23 05:17 Dose: 1 mg Furosemide (Furosemide 10 Mg/Ml Sdv 4ml) 40 mg IVP Q12H [facility] Gabapentin (Gabapentin 300 Mg Capsule) 900 mg PO DAILY [facility] Last Admin: 09/09/23 08:50 Dose: 900 mg Gabapentin (Gabapentin 300 Mg Capsule) 600 mg PO QPM [facility] Last Admin: 09/09/23 17:42 Dose: Not Given Hydrocortisone (Hydrocortisone 10 Mg Tablet) 10 mg PO QAM [facility] Last Admin: 09/10/23 05:17 Dose: 10 mg norepinephrine (Levophed) 4 mg in 250 mls @ 0 mls/hr IV .Q0M [facility]; Protocol Last Titration: 09/09/23 19:00 Dose: 0 mcg/min, 0 mls/hr Multivitamins 5 ml/ AA-Dex 4. (25%-5% w/Lytes) 1,005 mls @ 83 mls/hr IV .Q12H7M [facility]; Protocol Last Infusion: 09/10/23 06:16 Dose: Infused fat emulsions 20% (Intralipid 20%) 100 mls @ 8.333 mls/hr IV Q24H [facility] Last Infusion: 09/09/23 23:54 Dose: Infused Dextrose (D5w) 500 mls @ 0 mls/hr IV ONCE PRN; Protocol PRN Reason: Adult Acute Hypoglycemia Prot Dextrose (D10w) 125 mls @ 750 mls/hr IV PRN PRN; Protocol PRN Reason: Adult Acute Hypoglycemia Nursing Protocol Dextrose (D10w) 250 mls @ 1,000 mls/hr IV PRN PRN; Protocol PRN Reason: Adult Acute Hypoglycemia Nursing Protocol Albumin Human (Albumin) 25 g in 100 mls @ 60 mls/hr IV Q8H [facility] Last Infusion: 09/10/23 00:35 Dose: Infused Piperacillin Sod/Tazobactam (Sod 3.375 gm/ Sodium Chloride) 50 mls @ 12.5 mls/hr IV Q8H [facility] Last Admin: 09/10/23 05:12 Dose: 12.5 mls/hr Lidocaine HCl 5 ml/ Potassium (Chloride) 105 mls @ 26.25 mls/hr IV ONCE ONE Stop: 09/10/23 12:20 Insulin Human Lispro (Insulin Lispro 100 Unit/1 Ml) 0 unit SUBCUT Q6H [facility]; Protocol Last Admin: 09/10/23 05:26 Dose: Not Given Lanolin (Lanolin Oint 7 Gm) 1 applic TOPICAL PRN PRN PRN Reason: DRYNESS Last Admin: 08/31/23 05:01 Dose: 1 applic Levothyroxine Sodium (Levothyroxine 125 Mcg Tablet) 125 mcg PO QAM [facility] Last Admin: 09/10/23 05:17 Dose: 125 mcg Magnesium Lactate (Magnesium Lactate 84 Mg Tablet) 84 mg PO Q12H [facility] Last Admin: 09/10/23 03:20 Dose: Not Given Metoclopramide HCl (Metoclopramide 5 Mg/Ml Sdv 2 Ml) 5 mg IVP Q6H PRN PRN Reason: NAUSEA AND VOMITING Last Admin: 09/01/23 17:39 Dose: 5 mg Metolazone (Metolazone 5 Mg Tablet) 5 mg PO ONCE ONE Stop: 09/10/23 08:22 Midodrine (Midodrine 5 Mg Tablet) 10 mg PO Q8H [facility] Last Admin: 09/10/23 03:24 Dose: 10 mg Mirtazapine (Mirtazapine 30 Mg Tablet) 30 mg PO BEDTIME [facility] Last Admin: 09/09/23 20:07 Dose: 30 mg Nicotine (Nicotine 21 Mg Patch) 1 patch TRANSDERMA DAILY PRN PRN Reason: WITHDRAWAL Nicotine Polacrilex (Nicotine 4 Mg Lozenge) 4 mg MUCOUS MEM Q4H PRN PRN Reason: NICOTINE CRAVINGS Ondansetron HCl (Ondansetron 2 Mg/Ml Sdv 2 Ml) 4 mg IVP Q8H PRN PRN Reason: vomiting, or N/V if npo Last Admin: 09/01/23 09:57 Dose: 4 mg Pantoprazole Sodium (Pantoprazole 40 Mg Sdv) 40 mg IVP Q24H [facility] Last Admin: 09/09/23 20:17 Dose: 40 mg Polyethylene Glycol (Polyethylene Glycol 3350 Pkt 17 Gm) 17 gm PO DAILY [facility] Last Admin: 09/09/23 10:17 Dose: Not Given Senna/Docusate Sodium (Sennosides-Docusate Tablet) 2 tab PO DAILY [facility] Last Admin: 09/09/23 10:17 Dose: Not Given Vitals/I&O/Wt Last Vital Signs Temp 97.7 F 09/10/23 04:00 Pulse 91 09/10/23 07:32 Resp 18 09/10/23 07:32 BP 93/63 09/10/23 06:00 Pulse Ox 88 L 03/19/24 07:32 O2 Del Method BiPAP 09/10/23 07:32 O2 Flow Rate 10 09/10/23 06:00 FiO2 50 09/10/23 07:32 09/09/23 09/10/23 09/10/23 22:59 06:59 14:59 Intake Total 1192.5276 / 2314.7356 1048.883 / 3363.6186 Output Total 500 / 1400 600 / 2000 Balance 692.5276 / 914.7356 448.883 / 1363.6186 Weight last 48 hrs Weight 132 lb Weight 144 lb 4 oz Physical Exam Narrative: GENERAL: The patient is alert and oriented to place and person. Not in any acute distress. Chronically ill looking. HEENT: Moderate pallor, no icterus or lymphadenopathy.Oral cavity: There are no mucous membrane lesions. NECK: Trachea appears to be central. No masses noted. No JVD or thyromegaly appreciated. RESPIRATORY: Chest is symmetrical. No intercostals muscle retraction or any accessory muscle activation. There is no chest wall tenderness. Breath sounds are heard bilaterally. The breath sounds are diminished in the bases. Scattered coarse crackles. BREASTS: Deferred. HEART: The heart sounds are normal. No S3 or S4. Short systolic murmur in the lower sternal border. No diastolic murmurs. No pericardial rub ABDOMEN: No vessel pulsations or distention. No tenderness. No organomegaly appreciated. Bowel sounds are normally heard. : Deferred. RECTAL: Deferred. LYMPHATIC: No lymphadenopathy noted in the neck. EXTREMITIES: No edema or cyanosis. No clubbing. MUSCULOSKELETAL: No acute joint deformities or swelling SKIN: Extensive superficial ecchymosis bilaterally in the extremities NEUROPSYCHIATRIC: The patient is alert and oriented x2. No focal motor deficits. Urinary Catheter Management: Hooper: Cath Placed During This Visit: yes, but has since been removed by the nurse Reason for Continuing Indwelling Catheter: Accurate Measurement of Urinary Output in Critically Ill Patients Urinary Catheter Date of Insertion: 09/09/23 Urinary Catheter Time of Insertion: 19:03 Date Urinary Catheter Removed: 09/09/23 Time Urinary Catheter Discontinued: 19:02 Data 09/10/23 04:53 09/10/23 13:52 Other Labs: Laboratory Last Values WBC 10.61 10^3/uL (3.29-11.43) 09/10/23 04:53 RBC 2.38 10^6/uL (3.85-5.65) L 09/10/23 04:53 Hgb 7.60 g/dL (11.27-16.99) L 09/10/23 04:53 Hct 23.6 % (36-47) L 09/10/23 04:53 MCV 99.2 fl (85-98) H 09/10/23 04:53 MCH 31.9 pg (27-33) 09/10/23 04:53 MCHC 32.2 g/dL (30-55) 09/10/23 04:53 RDW 14.9 % (12.1-15.1) 09/10/23 04:53 Plt Count 67 10^3/cmm (157-399) L 09/10/23 04:53 MPV 13.6 fL (7.4-10.4) H 09/10/23 04:53 Neut % (Auto) 70.0 % 09/10/23 04:53 Lymph % (Auto) 16.8 % 09/10/23 04:53 F[place]on % (Auto) 10.0 % 09/10/23 04:53 Eos % (Auto) 1.5 % 09/10/23 04:53 Baso % (Auto) 0.6 % 09/10/23 04:53 Neut # (Auto) 7.43 10^3/uL (1.8-7.7) 09/10/23 04:53 Lymph # (Auto) 1.8 10^3/uL (0.8-4.8) 09/10/23 04:53 Fulton # (Auto) 1.1 10^3/uL (0.2-0.9) H 09/10/23 04:53 Eos # (Auto) 0.2 10^3/uL (0.0-0.8) 09/10/23 04:53 Baso # (Auto) 0.1 10^3/uL (0.0-0.1) 09/10/23 04:53 Nucleated RBC % (auto) 0.3 % 09/10/23 04:53 Total Counted 100 (0-100) 09/07/23 21:05 Atypical Lymphs % 0.0 % (0-5) 09/07/23 21:05 Absolute Neutrophils 6.8 10^3/cmm (1.4-6.5) H 09/07/23 21:05 Segmented Neutrophils 72 % 09/07/23 21:05 Abs Segm Neuts (Man) 6.6 10/cmm (1.6-7.1) 09/07/23 21:05 Band Neutrophils 2.0 % 09/07/23 21:05 Abs Band Neuts (Man) 0.2 10^3/cmm (0.0-1.2) 09/07/23 21:05 Absolute Lymphocytes 1.9 10^3/cmm (1.2-3.4) 09/07/23 21:05 Lymphocytes (Manual) 21 % 09/07/23 21:05 Monocytes (Manual) 3.0 % 09/07/23 21:05 Absolute Monocytes 0.3 10^3/cmm (0.1-0.6) 09/07/23 21:05 Eosinophils (Manual) 1 % 09/07/23 21:05 Absolute Eosinophils 0.1 10^3/cmm (0.0-0.7) 09/07/23 21:05 Basophils (Manual) 1.0 % 09/07/23 21:05 Absolute Basophils 0.1 10^3/cmm (0.0-0.2) 09/07/23 21:05 Nucleated RBCs # 0.0 /100WBC 09/10/23 04:53 Platelet Estimate Decreased (Normal) L 09/07/23 21:05 Peripher Smr Path Cons Sent for review 09/03/23 15:14 ESR < 1 mm/hr (0-15) 08/26/23 03:30 Haptoglobin 76.0 mg/L (30-200) 09/03/23 04:40 PT 19.00 SECONDS (12.1-14.9) H 09/06/23 04:43 INR 1.54 (0.8-1.2) H 09/06/23 04:43 APTT 36.7 SECONDS (23.9-36.7) 09/03/23 15:14 Fibrinogen 163 mg/dL (174-498) L 09/03/23 15:14 D-Dimer 3.51 ug/mLFEU (0-0.59) H 09/03/23 15:14 Specimen Type Arterial 09/08/23 04:15 Sample Site Radial, right 09/08/23 04:15 ABG pH 7.56 (7.35-7.45) H 09/08/23 04:15 ABG pCO2 46.5 mmHg (35-45) H 09/08/23 04:15 ABG pO2 63.9 mmHg (80.0-100.0) L 09/08/23 04:15 ABG PO2/FiO2 Ratio 0 09/08/23 04:15 ABG HCO3 41.7 mmol/L (22-26) H 09/08/23 04:15 ABG O2 Saturation 89.2 09/01/23 14:53 ABG Base Excess 17.7 mmol/L (-2.0-2.0) H 09/08/23 04:15 Higinio Test Pos 09/08/23 04:15 VBG pH 7.35 (7.32-7.42) 08/25/23 21:27 VBG pCO2 42.1 mmHg (41-51) 08/25/23 21:27 VBG pO2 28.9 mmHg (25-40) 08/25/23 21:27 VBG HCO3 23.2 mmol/L (24-28) L 08/25/23 21:27 VBG Base Excess -2.4 mmol/L (-3.0-3.0) 08/25/23 21:27 VBG Hematocrit 39.4 % (37-47) 08/25/23 21:27 A-a O2 Gradient 42.3 mmHg (5-10) H 09/01/23 14:53 Hematocrit 27.9 % (37-47) L 09/08/23 04:15 Hgb O2 Saturation 87.8 % (95-100) L 09/01/23 14:53 Carboxyhemoglobin 1.1 %THgb (0.4-20.1) 09/01/23 14:53 Methemoglobin 0.5 % (0.4-1.5) 09/01/23 14:53 Total Hemoglobin 10.0 g/dL (12-16) L 09/01/23 14:53 Sodium 137.0 mmol/L (131-143) 09/01/23 14:53 Potassium 2.7 mmol/L (3.5-5.0) L 09/01/23 14:53 Glucose 138.0 mg/dL (70-115) H 09/01/23 14:53 Ionized Calcium 1.1 mmol/L (1.1-1.4) 09/01/23 14:53 O2 Delivery Device Bipap 09/08/23 04:15 O2 Liters/Min 12.0 % 09/07/23 04:26 FiO2 50.0 % 09/08/23 04:15 Paste Maker ID [email or web address] 09/08/23 04:15 Sodium 140 mmol/L (136-145) 09/10/23 13:52 Potassium 4.7 mmol/L (3.5-5.1) 09/10/23 13:52 Chloride 95 mmol/L (98-107) L 09/10/23 13:52 Carbon Dioxide 33 mmol/L (22-29) H 09/10/23 13:52 Anion Gap 16.7 (5-19) 09/10/23 13:52 BUN 44 mg/dL (8-23) H 09/10/23 13:52 Creatinine 0.6 mg/dL (0.5-0.9) 09/10/23 13:52 GFR Calculation 99.7 mL/min (90-130) 09/10/23 13:52 Glucose 107 mg/dL (65-115) 09/10/23 13:52 POC Glucose 119 mg/dL (70-110) H 09/10/23 16:51 Calculated Osmolality 302 mOsm/kg (285-295) H 09/10/23 13:52 Lactic Acid 0.8 mmol/L (0.5-2.2) 08/26/23 08:58 Lactic Acid (Sepsis) 1.7 mmol/L (0.5-2.2) 08/25/23 19:43 Lactate 1.6 mmol/L (0.5-2.2) 09/06/23 04:43 Calcium 10.5 mg/dL (8.5-10.5) 09/10/23 13:52 Phosphorus 3.1 mg/dL (2.5-4.5) 09/10/23 04:53 Magnesium 2.5 mg/dL (1.7-2.3) H 09/10/23 04:53 Iron 63 ug/dL (37-145) 09/03/23 04:40 Ferritin 560 ng/mL (15-150) H 09/03/23 04:40 Total Bilirubin 1.1 mg/dL (0.15-1.2) 09/10/23 04:53 Direct Bilirubin 1.00 mg/dL (0.00-0.30) H 09/02/23 03:20 Indirect Bilirubin 2.60 09/02/23 03:20 GGT 76 U/L (5-36) H 09/02/23 03:20 AST 44 U/L (0-32) H 09/10/23 04:53 ALT 17 U/L (0-33) 09/10/23 04:53 Alkaline Phosphatase 68 U/L (35-105) 09/10/23 04:53 Lactate Dehydrogenase 447 U/L (135-214) H 09/03/23 04:40 Creatine Kinase 25 U/L (26-192) L 09/03/23 04:40 Troponin T Baseline 30 ng/L (0-10) H 08/27/23 09:22 Troponin T 120 Minute 38.12 ng/L (0-10) H 08/27/23 11:33 Delta Troponin T 8.12 ABS# (0-10) 08/27/23 11:33 Troponin T Hi Sens 6Hr 33.09 ng/L (0-10) H 08/27/23 15:22 Troponin T Hi Sens 6Hr Delta 3.09 ng/L (0-12) 08/27/23 15:22 C-Reactive Protein 26.9 mg/L (0.0-4.9) H 09/10/23 04:53 NT-Pro-B Natriuret Pep 71381 pg/mL (0-125) H 09/10/23 04:53 Total Protein 6.7 g/dL (6.6-8.7) 09/10/23 04:53 Albumin 5.2 g/dL (3.5-5.2) 09/10/23 04:53 Globulin 1.5 g/dL (1.3-4.6) 09/10/23 04:53 Lipase 5 U/L (13-60) L 09/02/23 03:20 Vitamin B12 530 pg/mL (232-1245) 08/26/23 07:00 Folate 17.2 ng/mL (4.8-37.3) 08/25/23 21:27 Procalcitonin 0.34 ng/mL (0-0.5) 09/10/23 04:53 TSH 5.33 uIU/mL (0.27-4.20) H 09/07/23 09:21 Free T4 1.72 ng/dL (0.82-1.77) 09/07/23 09:21 Free T3 1.1 PG/ML (2.0-4.4) L 09/07/23 09:21 Random Cortisol 8.44 ug/dL (2.47-19.5) 09/08/23 02:58 Urine Color Dark yellow (Yellow) 08/25/23 17:40 Urine Appearance Clear (CLEAR) 08/25/23 17:40 Urine pH 5 (5-7) 08/25/23 17:40 Ur Specific Eugene 1.020 (1.005-1.030) 08/25/23 17:40 Urine Protein Trace (Negative) 08/25/23 17:40 Urine Glucose (UA) Norm (Normal) 08/25/23 17:40 Urine Ketones 1+ (Negative) H 08/25/23 17:40 Urine Blood Neg (Negative) 08/25/23 17:40 Urine Nitrate Negative (Negative) 08/25/23 17:40 Urine Bilirubin 2+ (Negative) H 08/25/23 17:40 Urine Urobilinogen 4+ mg/dL (Negative) H 08/25/23 17:40 Ur Leukocyte Esterase Negative (Negative) 08/25/23 17:40 Urine RBC None /hpf (0-2) 08/25/23 17:40 Urine WBC 0-4 /hpf (0-5) H 08/25/23 17:40 Ur Squamous Epith Cells None /hpf (0-5) 08/25/23 17:40 Amorphous Sediment Not Reportable 08/25/23 17:40 Urine Bacteria Trace /hpf (NONE) 08/25/23 17:40 Vancomycin Trough 29.9 ug/mL (10-15) H* 09/01/23 09:27 Digoxin 1.1 ng/mL (0.6-1.2) 09/03/23 04:40 Serum Ketones Negative (Negative) 08/25/23 21:27 IgA 629 mg/dL (70-320) H 08/25/23 21:27 BRENT Nuclear Membr Pat Nuclear, speckled A 08/26/23 08:58 BRENT IFA Animal Tis Ttr 1:40 titer H 08/26/23 08:58 BRENT IFA Animal Tis Res Positive (NEGATIVE) A 08/26/23 08:58 MINA-1 Antibody <1.0 neg AI (<1.0 NEG) 08/26/23 08:58 SS-A Antibody <1.0 neg AI (<1.0 NEG) 08/26/23 08:58 SS-B Antibody <1.0 neg AI (<1.0 NEG) 08/26/23 08:58 Sm (Arias) Antibody <1.0 neg AI (<1.0 NEG) 08/26/23 08:58 FILM SPLICER Antibody <1.0 neg AI (<1.0 NEG) 08/26/23 08:58 Scl-70 Antibody <1.0 neg AI (<1.0 NEG) 08/26/23 08:58 Anti-ds DNA IgG (Crith) Negative (NEGATIVE) 08/26/23 08:58 Centromere B Antibody <1.0 neg AI (<1.0 NEG) 08/26/23 08:58 Tiss Transglutamin IgG <1.0 U/mL 08/25/23 21:27 Tiss Transglutamin IgA <1.0 U/mL 08/25/23 21:27 Thyroid Peroxidase Ab <1 IU/mL (<9) 08/26/23 08:58 Anti-Gliadin IgG JENNA Res 1.8 U/mL 08/25/23 21:27 Anti-Gliad IgA JENNA Res 2.3 U/mL 08/25/23 21:27 Complement C3c 62 mg/dL (83-193) L 08/26/23 08:58 Complement C4c 41 mg/dL (15-57) 08/26/23 08:58 CH50 Classical Pathway 27 U/mL (31-60) L 08/26/23 08:58 Adenovirus (PCR) Not detected (NOT DETECT) 08/26/23 15:00 C. pneumoniae DNA (PCR) Not detected (NOT DETECT) 08/26/23 15:00 C. difficile (PCR) Negative (Negative) 09/06/23 16:30 Coronavirus 229E (PCR) Not detected (NOT DETECT) 08/26/23 15:00 CMV Culture Source blood 08/26/23 08:58 CMV IgG Ab >10.00 U/mL H 08/25/23 21:27 CMV IgM Ab <30.00 AU/mL 08/25/23 21:27 CMV DNA Quant PCR Not detected IU/mL 08/26/23 08:58 CMV Qnt PCR Interp Not detected Log IU/mL 08/26/23 08:58 Hepatitis A IgM Ab Non-reactive (Nonreactive) 08/31/23 04:10 Hep Bs Antigen Non-reactive (Nonreactive) 08/31/23 04:10 Hep B Core IgM Ab Non-reactive (Nonreactive) 08/31/23 04:10 Hepatitis C Antibody Non-reactive (Nonreactive) 08/31/23 04:10 Human Metapneumovir PCR Not detected (NOT DETECT) 08/26/23 15:00 Influenza A (H1) PCR Not detected (NOT DETECT) 08/26/23 15:00 Influ A (H1/09) PCR Not detected (NOT DETECT) 08/26/23 15:00 Influenza A (H3) PCR Not detected (NOT DETECT) 08/26/23 15:00 Influenza Type A (PCR) Not detected (NOT DETECT) 08/26/23 15:00 Influenza Type B (PCR) Not detected (NOT DETECT) 08/26/23 15:00 M. pneumoniae (PCR) Not detected (NOT DETECT) 08/26/23 15:00 Parainfluenza 1 (PCR) Not detected (NOT DETECT) 08/26/23 15:00 Parainfluenza 2 (PCR) Not detected (NOT DETECT) 08/26/23 15:00 Parainfluenza 3 (PCR) Not detected (NOT DETECT) 08/26/23 15:00 Parainfluenza 4 (PCR) Not detected (NOT DETECT) 08/26/23 15:00 RSV Type A (PCR) Not detected (NOT DETECT) 08/26/23 15:00 RSV Type B (PCR) Not detected (NOT DETECT) 08/26/23 15:00 Entero/Rhino (PCR) Not detected (NOT DETECT) 08/26/23 15:00 SARS-CoV-2 (PCR) Not detected (NOT DETECT) 08/26/23 15:00 Blood Type B Positive 09/07/23 09:21 Rho(D) Type Rh positive 09/07/23 09:21 Antibody Screen Negative 09/07/23 09:21 Crossmatch See Detail 09/07/23 09:21 Micro: Microbiology 09/06/23 16:30 E. coli Shiga-like Toxin (PCR) - Final Stool Campylobacter (PCR) - Final A&P Assessment and plan (1) Atrial fibrillation with RVR: Currently the patient is in sinus rhythm. May continue on the current management. (2) CHF (congestive heart failure): May continue on the as needed Lasix. Qualifiers: Heart failure chronicity: chronic Heart failure type: unspecified Qualified Code(s): I50.9 - Heart failure, unspecified (3) Hypotension: The blood pressure seems to be staying in the upper 80s and low 90s today. Still staying off the dopamine. Qualifiers: Hypotension type: unspecified hypotension type Qualified Code(s): I95.9 - Hypotension, unspecified (4) ASHD (arteriosclerotic heart disease): Since her cardiac status seems to be stable, may continue on the current management. (5) Thrombocytopenia: Remaining low in the 60s (6) Wall motion abnormality of inferior wall of left ventricle: May suggest underlying coronary disease. Patient is currently asymptomatic. Consider doing a Myocardial perfusion imaging, once her clinical status is more stable. (7) Bilateral pneumonia: Antibiotic treatment as per the primary. Qualifiers: Lung location: lower lobe of lung Pneumonia type: due to unspecified organism Qualified Code(s): J18.9 - Pneumonia, unspecified organism Plan May continue on the other current management. Attestations Medical Necessity Statement*: Disposition as per the primary Coding Level of Care Code Acute Code for [facility] Diagnoses Atrial fibrillation with RVR I48.91 Acute on chronic congestive heart failure, unspecified heart failure type I50.9 Heart failure chronicity: chronic Heart failure type: unspecified Hypotension, unspecified hypotension type I95.9 Hypotension type: unspecified hypotension type ASHD (arteriosclerotic heart disease) I25.10 Thrombocytopenia D69.6 Wall motion abnormality of inferior wall of left ventricle R94.30 Pneumonia of both lower lobes due to infectious organism J18.9 Lung location: lower lobe of lung Pneumonia type: due to unspecified organism
[2023-09-10] MEDS: metOLazone 5 MG Tablet PO (08:51)
[2023-09-10] MEDS: albumin 25 G/100 ML BAG 60 G IV ×3 (08:51→22:50)
[2023-09-10] MEDS: lidocaine 1% 5 ML in potassium chloride premix 100 ML 26.25 ML IV (08:51)
[2023-09-10] MEDS: FUROsemide 10 mg/mL SDV 4mL 40 MG IVP ×3 (08:52→23:53)
[2023-09-10] MEDS: polyethylene glycol 3350 Pkt 17 gm PO (08:52)
[2023-09-10] MEDS: fludrocortisone 0.1 mg Tablet 0.100000000000000006 MG PO (08:52)
[2023-09-10] MEDS: gabapentin 300 mg Capsule 900 MG PO (08:52)
[2023-09-10] MEDS: sennosides-docusate Tablet 2 TAB PO (08:52)
[2023-09-10] MEDS: calcium carbonate 500 mg Chew Tablet 1000 MG PO (08:52)
[2023-09-10 11:34] LABS: Glucose Point of Care 140 mg/dL (70-110)
[2023-09-10] MEDS: AA-Dex 4.25%-5% w/Lytes 1,000 ML with multivitamin inj 5 ML 83 ML IV (11:37)
[2023-09-10] MEDS: magnesium lactate 84 mg Tablet PO (13:15)
[2023-09-10 14:27] LABS: Anion Gap 16.7 (5-19); Blood Urea Nitrogen 44 mg/dL (8-23); Calcium 10.5 mg/dL (8.5-10.5); Carbon Dioxide 33 mmol/L (22-29); Chloride 95 mmol/L (98-107); Creatinine Clr Calc Pharmacy 61.1554; Glomerular Filtration Rate 99.7 mL/min (90-130); Glucose 107 mg/dL (65-115); Osmolality Calculated 302 mOsm/kg (285-295); Potassium 4.7 mmol/L (3.5-5.1); Sodium 140 mmol/L (136-145)
[2023-09-10] MEDS: citalopram 20 mg Tablet PO (14:56)
--- NOTE | 2023-09-10 15:18 | P.PN_ITS ---
Subjective 2 Subjective: - Patient was seen this morning, current ly off Levophed on 12 L, nasal cannula, she is alert to person, to place, not to time -This morning, patient is frustrated, ab out her lack of progress, she tells me she did not get any better she wants to go home, she wants to go home and and be with Norris, she is ready, she keeps repeating this -I had a detailed discussion with brian reynaldo that she is fluid overloaded, she has severe CHF exacerbation, acute respiratory distress, she is overall clinically improving she is off levothyroxine requirements are improved proving, she requires further diuresis, she likely will require placement at a long-term care facility like [facility], require extensive rehab close pulmonary monitoring as she needs BiPAP during the day but I feel that if we give her time which is about a weeks to months, she can eventually be discharged home -The other option I presented to her is to go home on hospice and allow her to be comfortable to ease her pain and ease her suffering allow her to pass with comfortably at home -She initially tells me yes she wants to go home and , but then tells me that she wants everything still to be done -I increased her Lasix to 40 mg IV every 8 hours given a dose of metolazone I decreased her dose of TPN to 40cc/hr -Had a family meeting with patient and h er daughter at bedside ? Initially patient tells her daughter that she is ready to go, she wants to go home, but at other times she tells me that she wants everything to be done she wants to be on a ventilator if she needs it As I had a detailed discussion with patient her respiratory failure is improving she is frustrated about her lack of improvement over the last few days I had a detailed discussion with her daughter, that on Saturday she was down to 5 L she was alert and awake she was playing on her phone I feel that she had a significant aspiration event as she had episodes of coughing up pills which had set her back and now she is developing further fluid overload requiring further diuresis however I feel that if we gave her time, further diuresis speech therapy eval continuing TPN, giving her time to potentially placing her does like she could eventually have a quality of life is and eventually go home the other option would be to go to long-term facility if she does clinically improved here that she does not need to go to [facility], but I see any way that she could go home currently [place] the [place], the only way that she could go home would be on hospice, for us to ease her pain and ease her suffering ? After extensive discussion initially patient tells me that she wants to go home she is ready to but then at other times she tells me she wants everything to be done, she wants even to be put on a ventilator, ? After extensive discussion, patient's daughter will have a family meeting, for now we will continue all interventions Vitals/I&O/Wt Last Vital Signs Temp 97.7 F 09/10/23 04:00 Pulse 88 09/10/23 14:00 Resp 20 H 09/10/23 14:00 BP 99/63 09/10/23 14:00 Pulse Ox 90 09/10/23 14:00 O2 Del Method High Flow Nasal Cannula 09/10/23 13:26 O2 Flow Rate 10 09/10/23 13:26 FiO2 50 09/10/23 07:32 09/10/23 09/10/23 09/10/23 06:59 14:59 22:59 Intake Total 1048.883 / 3363.6186 594.05 / 594.05 Output Total 600 / 2000 1000 / 1000 Balance 448.883 / 1363.6186 594.05 / 594.05 -1000 / -405.95 Weight last 48 hrs Weight 59.874 kg Weight 65.431 kg Physical Exam 2 Urinary Catheter Management: Hooper: Cath Placed During This Visit: yes, but has since been removed by the nurse Reason for Continuing Indwelling Catheter: Accurate Measurement of Urinary Output in Critically Ill Patients Urinary Catheter Date of Insertion: 09/09/23 Urinary Catheter Time of Insertion: 19:03 Date Urinary Catheter Removed: 09/09/23 Time Urinary Catheter Discontinued: 19:02 Data 09/10/23 04:53 09/10/23 13:52 Micro: Microbiology 09/06/23 16:30 E. coli Shiga-like Toxin (PCR) - Final Stool Campylobacter (PCR) - Final A&P Assessment and plan (1) Hypotension: -Likely multifactorial - adrenal insufficiency,diureses -midodrine 10mg 3 times daily neck ? Wean Levophed ? hydrocortisone, fludrocortisone Qualifiers: Hypotension type: unspecified hypotension type Qualified Code(s): I95.9 - Hypotension, unspecified (2) Enterocolitis: Resolved CT/CT abdomen pelvis w con* [id number] IMPRESSION: New low-density wall thickening seen through much of the colon as well as portions of small bowel raising consideration of enterocolopathy of portal hypertension, enterocolitis (either infectious/inflammatory or ischemic) , or angioedema. Mild increase in ascites which remains small. Large gallstone again noted within gallbladder. Fatty liver. -Gallbladder ultrasound IMPRESSION: 1. Extremely difficult evaluation of the RIGHT upper quadrant due to body habitus. 2. Cholelithiasis without acute cholecystitis. No bile duct dilatation. 3. Cirrhotic liver with hepatic steatosis. (3) Hypokalemia: Replace hypokalemia. Has received some magnesium. Recheck magnesium level. (4) Hypomagnesemia: Received supplementation. Recheck level. (5) Adrenal insufficiency: as above. (6) Acquired hypothyroidism: TSH 5.33 (7) Wall motion abnormality of inferior wall of left ventricle: - History of severe coronary artery disease one-vessel disease, distal RCA treated with balloon and drug-eluting stent, back in 2019 Echocardiogram - Normal LV size with a slightly diminished ejection fraction of 50% (visual). Mild left-ventricular hypertrophy. Wall motion abnormalities as mentioned above Moderate mitral annular calcification. Normal RV size and ejection fraction There is no pericardial effusion. There are no intracardiac masses. Compared to the study from 06/27/2023, the wall motion abnormalities appear to be new Plan ? Serial EKGs, serial troponins, telemetry monitoring ? Aspirin, Plavix on hold -Given wall motion abnormalities, consulted cardiology -For now medical management (8) Acute hypoxic respiratory failure: -Acute hypoxic respiratory failure ? With development of acute respiratory distress syndrome -Secondary to fluid overload, pulmonary edema, systolic CHF -Now with concerns of aspiration pneumonia -BNP over 30,000, chest x-ray showing pulm vascular congestion, resolving - pneumonia, given leukocytosis elevated Pro-Reilly, CRP, resolved -Now with A-fib with RVR, back into normal sinus rhythm ? Chest x-ray shows improving pulmonary vascular congestion ? Plan -Currently off Levophed at 2, ? Currently on 12 L, BiPAP as needed, scheduled during the night ? Fluid restrictions at 1000 cc, has diuresed over net 9 L negative ? Continue albumin ? lasix 40mg iv q8hrs scheduled -monitor creatinine monitor urine output monitor potassium ?monitor fluid status, monitor creatinine, -Continue fludrocortisone, ? Zosyn for aspiration pneumonia -Follow-up blood cultures - verapamil on hold -Continue to monitor respiratory status closely -Full code -Eliquis for DVT prophylaxis on hold, SCDs for DVT prophylaxis -Status is stable, prognosis is guarded (9) Pulmonary edema: (10) Fluid overload: (11) CHF (congestive heart failure): Qualifiers: Heart failure type: unspecified Heart failure chronicity: chronic Qualified Code(s): I50.9 - Heart failure, unspecified (12) Acute respiratory distress syndrome: (13) Sepsis: (14) Shock: - Possibly septic shock, given pneumonia, multifactorial given adrenal insufficiency, diuresis ? Component of cardiogenic shock, given wall motion abnormalities on echocardiogram -component of adrenal insufficiency (15) Atrial fibrillation with RVR: (16) Digoxin toxicity: resolved, Digoxin levels over 3, digoxin was stopped amiodarone was stopped continue to monitor monitor potassium (17) Acute anemia: Status post 1 unit PRBC (18) Thrombocytopenia: - Patient has anemia, thrombocytopenia -Hold aspirin, Plavix, Eliquis ? Hemolytic labs, ? Repeat CBC this evening (19) Hyperbilirubinemia: Liver ultrasound no acute findings, next ?we will monitor (20) Aspiration pneumonia: (21) Protein calorie malnutrition: (22) Physical deconditioning: - PT OT -Currently on peripheral nutrition, Plan CAD: Plavix if able to tolerate, asa CHF: as above A-fib: Normally on Eliquis , no hold CKD: GERD: PPI by IV at the moment. COPD: Not in exacerbation. Breathing treatments scheduled and as needed. History of HTN: This appears to be remote history, she is for the most part been having low blood pressures. Currently hypotensive. Smoking addiction: Encourage cessation. Nicotine replacement as needed. DM2: Accu-Cheks every 6 hours, insulin sliding scale. Guesses carb diet. Diabetic neuropathy: Hold off gabapentin for now due to hypotension. HLD: statin for now - Patient was seen this morning, currently off Levophed on 12 L, nasal cannula, she is alert to person, to place, not to time -This morning, patient is frustrated, about her lack of progress, she tells me she did not get any better she wants to go home, she wants to go home and and be with Norris, she is ready, she keeps repeating this -I had a detailed discussion with patient that she is fluid overloaded, she has severe CHF exacerbation, acute respiratory distress, she is overall clinically improving she is off levothyroxine requirements are improved proving, she requires further diuresis, she likely will require placement at a long-term care facility like [facility], require extensive rehab close pulmonary monitoring as she needs BiPAP during the day but I feel that if we give her time which is about a weeks to months, she can eventually be discharged home -The other option I presented to her is to go home on hospice and allow her to be comfortable to ease her pain and ease her suffering allow her to pass with comfortably at home -She initially tells me yes she wants to go home and , but then tells me that she wants everything still to be done -I increased her Lasix to 40 mg IV every 8 hours given a dose of metolazone I decreased her dose of TPN to 40cc/hr -Had a family meeting with patient and her daughter at bedside ? Initially patient tells her daughter that she is ready to go, she wants to go home, but at other times she tells me that she wants everything to be done she wants to be on a ventilator if she needs it As I had a detailed discussion with patient her respiratory failure is improving she is frustrated about her lack of improvement over the last few days I had a detailed discussion with her daughter, that on Saturday she was down to 5 L she was alert and awake she was playing on her phone I feel that she had a significant aspiration event as she had episodes of coughing up pills which had set her back and now she is developing further fluid overload requiring further diuresis however I feel that if we gave her time, further diuresis speech therapy eval continuing TPN, giving her time to potentially placing her does like she could eventually have a quality of life is and eventually go home the other option would be to go to long-term facility if she does clinically improved here that she does not need to go to [facility], but I see any way that she could go home currently in the state, the only way that she could go home would be on hospice, for us to ease her pain and ease her suffering ? After extensive discussion initially patient tells me that she wants to go home she is ready to but then at other times she tells me she wants everything to be done, she wants even to be put on a ventilator, ? After extensive discussion, patient's daughter will have a family meeting, for now we will continue all interventions Attestations 2 Medical Necessity Statement*: Patient requires hospitalization for acute hypoxic respiratory failure secondary to fluid overload requiring IV diuresis with IV Lasix 40 mg IV every 8 hours, aspiration pneumonia requiring IV Lasix, continuing TPN, continue monitoring respiratory status closely, for now continue all interventions as patient and family have not made up the decision about overall goals of care, spoke to patient, spoke to daughter, spoke to nursing staff, Diagnoses Hypotension, unspecified hypotension type I95.9 Hypotension type: unspecified hypotension type Enterocolitis K52.9 Hypokalemia E87.6 Hypomagnesemia E83.42 Adrenal insufficiency E27.40 Acquired hypothyroidism E03.9 Wall motion abnormality of inferior wall of left ventricle R94.30 Acute hypoxic respiratory failure J96.01 Pulmonary edema J81.1 Fluid overload E87.70 Acute on chronic congestive heart failure, unspecified heart failure type I50.9 Heart failure type: unspecified Heart failure chronicity: chronic Acute respiratory distress syndrome J80 Sepsis A41.9 Shock R57.9 Atrial fibrillation with RVR I48.91 Digoxin toxicity T46.0X1A Acute anemia D64.9 Thrombocytopenia D69.6 Hyperbilirubinemia E80.6 Aspiration pneumonia J69.0 Protein calorie malnutrition E46 Physical deconditioning R53.81
[2023-09-10 16:56] LABS: Glucose Point of Care 119 mg/dL (70-110)
[2023-09-10] MEDS: gabapentin 300 mg Capsule 600 MG PO (17:44)
[2023-09-10] MEDS: pantoprazole 40 mg SDV IVP (20:30)
[2023-09-10] MEDS: mirtazapine 30 mg Tablet PO (20:42)
[2023-09-10] MEDS: atorvastatin 40 mg Tablet 20 MG PO (20:43)
--- NOTE | 2023-09-10 20:48 | PC.NURSE ---
Swab cap in mouth: Removed BiPAP mask to assess orientation and give oral medications. Pt answered all orientation questions correctly. Pt appeared to be chewing. Opened pts mouth, orange swab cap on her tongue. Removed cap from mouth and thoroughly checked the rest of her mouth- nothing found. Provided education to pt to not place any small items in her mouth, as they are a choking hazard. Also discussed her NPO except medications status. Checked bedding for small items, none present at this time.
--- NOTE | 2023-09-10 22:52 | PC.NURSE ---
TPN 40ml/hr: Critical care message order in place to run TPN @40ml/hr. TPN running at 40ml/hr. TPN order edited to reflect this.
[2023-09-10 23:47] LABS: Glucose Point of Care 101 mg/dL (70-110)
[2023-09-11] VITALS (57 sets, daily range): BP systolic 82–123; BP diastolic 48–78; PULSE 78–95; RESP 10–27; TEMP 36.3–36.6; O2SAT 86–99; BMI 21.3
[2023-09-11] MEDS: ipratropium-albuterol 3 mL Neb INHALATION ×4 (01:30→20:02)
[2023-09-11] MEDS: midodrine 5 mg TABLET 10 MG PO ×3 (03:01→17:46)
[2023-09-11] MEDS: morphine 4 mg/mL SDV 1 mL 1 MG IVP ×2 (03:02→08:53)
[2023-09-11] MEDS: piperacillin-tazobactam 3.375 GM in sodium chloride 0.9% (plus) 50 ML IV ×3 (05:21→21:53)
[2023-09-11] MEDS: folic acid 1 mg Tablet PO (05:26)
[2023-09-11] MEDS: cyclobenzaprine 10 mg Tablet 5 MG PO (05:26)
[2023-09-11] MEDS: hydrocortisone 10 mg Tablet PO (05:26)
[2023-09-11] MEDS: levothyroxine 125 mcg Tablet PO (05:26)
[2023-09-11 05:34] LABS: Basophils # 0.1 10^3/uL (0.0-0.1); Basophils % 0.6 %; Eosinophils # 0.2 10^3/uL (0.0-0.8); Eosinophils % 1.2 %; Hematocrit 24.5 % (36-47); Lymphocytes # 3.6 10^3/uL (0.8-4.8); Lymphocytes % 22.5 %; Mean Corpuscular HGB Conc 32.2 g/dL (30-55); Mean Corpuscular Hemoglobin 32.1 pg (27-33); Mean Corpuscular Volume 99.6 fl (85-98); Monocytes # 1.6 10^3/uL (0.2-0.9); Monocytes % 10.2 %; Neutrophils % 61.6 %; Nucleated Red Blood Cells # 0.1 /100WBC; Nucleated Red Blood Cells % 0.3 %; Platelet Count 90 10^3/cmm (157-399); Red Blood Count 2.46 10^6/uL (3.85-5.65); Red Cell Distribution Width 14.6 % (12.1-15.1); White Blood Count 16.05 10^3/uL (3.29-11.43)
[2023-09-11 05:37] LABS: Glucose Point of Care 103 mg/dL (70-110)
[2023-09-11 05:59] LABS: Slide Review Slide Review Perform
[2023-09-11 06:00] LABS: Alanine Aminotransferase 31 U/L (0-33); Albumin Level 5.6 g/dL (3.5-5.2); Alkaline Phosphatase 75 U/L (35-105); Anion Gap 15.4 (5-19); Aspartate Amino Transferase 63 U/L (0-32); Blood Urea Nitrogen 49 mg/dL (8-23); Calcium 10.9 mg/dL (8.5-10.5); Carbon Dioxide 34 mmol/L (22-29); Chloride 94 mmol/L (98-107); Creatinine Clr Calc Pharmacy 59.6507; Globulin 2.1 g/dL (1.3-4.6); Glomerular Filtration Rate 71.5 mL/min (90-130); Glucose 77 mg/dL (65-115); Magnesium 2.5 mg/dL (1.7-2.3); Osmolality Calculated 302 mOsm/kg (285-295); Phosphorus 3.4 mg/dL (2.5-4.5); Potassium 3.4 mmol/L (3.5-5.1); Sodium 140 mmol/L (136-145); Total Bilirubin 1.2 mg/dL (0.15-1.2); Total Protein 7.7 g/dL (6.6-8.7)
[2023-09-11 06:06] LABS: Procalcitonin 0.39 ng/mL (0-0.5)
[2023-09-11 06:12] LABS: C Reactive Protein 35.3 mg/L (0.0-4.9)
[2023-09-11 06:30] LABS: NT Pro B Type Natriuretic Pept 31128 pg/mL (0-125)
[2023-09-11] MEDS: albumin 25 G/100 ML BAG 60 G IV ×2 (08:08→15:03)
[2023-09-11] MEDS: FUROsemide 10 mg/mL SDV 4mL 40 MG IVP ×2 (08:09→15:04)
[2023-09-11] MEDS: calcium carbonate 500 mg Chew Tablet 1000 MG PO (08:10)
[2023-09-11] MEDS: gabapentin 300 mg Capsule 900 MG PO (08:11)
[2023-09-11] MEDS: citalopram 20 mg Tablet PO (08:11)
[2023-09-11] MEDS: fludrocortisone 0.1 mg Tablet 0.100000000000000006 MG PO (08:11)
[2023-09-11] MEDS: sennosides-docusate Tablet 2 TAB PO (08:12)
[2023-09-11] MEDS: polyethylene glycol 3350 Pkt 17 gm PO (08:12)
[2023-09-11] MEDS: AA-Dex 4.25%-5% w/Lytes 1,000 ML with multivitamin inj 5 ML 40 ML IV (08:12)
[2023-09-11] MEDS: lidocaine 1% 5 ML in potassium chloride premix 100 ML 52.5 ML IV (08:58)
[2023-09-11] MEDS: potassium chloride ER 20 mEq Tablet 40 MEQ PO ×2 (08:59→21:52)
[2023-09-11] MEDS: metOLazone 5 MG Tablet PO (08:59)
[2023-09-11 11:13] LABS: Glucose Point of Care 122 mg/dL (70-110)
[2023-09-11] MEDS: calcitriol 0.25 mcg Capsule PO (11:31)
[2023-09-11] MEDS: magnesium lactate 84 mg Tablet PO (13:19)
[2023-09-11] MEDS: norepinephrine 4 MG/250 ML BAG 7.5 MG IV (13:29)
--- NOTE | 2023-09-11 14:32 | P.PN_ITS ---
Subjective 2 Subjective: patient was seen this morning she is alert and oriented X2, she follows commands, tells me she is breathing better today, she has taken a few bites of her breakfast, no fever, no cough Vitals/I&O/Wt Last Vital Signs Temp 97.8 F 09/11/23 00:10 Pulse 83 09/11/23 14:00 Resp 12 09/11/23 14:00 BP 101/63 09/11/23 14:00 Pulse Ox 93 09/11/23 14:00 O2 Del Method High Flow Nasal Cannula 09/11/23 13:20 O2 Flow Rate 10 09/11/23 13:20 FiO2 40 09/11/23 10:45 09/10/23 09/11/23 09/11/23 22:59 06:59 14:59 Intake Total 757.320 / 1351.370 619.831 / 1971.201 150.125 / 150.125 Output Total 1700 / 1700 1500 / 3200 Balance -942.680 / -348.630 -880.169 / -1228.799 150.125 / 150.125 Weight last 48 hrs Weight 56.382 kg Weight 59.874 kg Physical Exam 2 Const: COMMON NORMALS: no acute distress ORIENTATION/CONSCIOUSNESS: Yes awake, Yes oriented to person and Yes oriented to place Resp: COMMON NORMALS: normal respiratory effort, No retractions and No use of accessory muscles Cardio: COMMON NORMALS: regular rate, regular rhythm, S1 normal heart sound present and S2 normal heart sound present RATE: regular rate RHYTHM: r egular rhythm HEART SOUNDS: S1 normal heart sound present and S2 normal heart sound present GI: COMMON NORMALS: Normal to inspection, nondistended, normoactive bowel sounds present and non-tender Extremity: COMMON NORMALS: no pedal edema Neuro: SENSORIUM/ORIENTATION: Yes oriented to person and Yes oriented to place Psych: COMMON NORMALS: mental status grossly normal Urinary Catheter Management: Hooper: Cath Placed During This Visit: yes, but has since been removed by the nurse Reason for Continuing Indwelling Catheter: Accurate Measurement of Urinary Output in Critically Ill Patients Urinary Catheter Date of Insertion: 09/09/23 Urinary Catheter Time of Insertion: 19:03 Date Urinary Catheter Removed: 09/09/23 Time Urinary Catheter Discontinued: 19:02 Data 09/11/23 05:20 03/20/24 05:20 A&P Assessment and plan (1) Hypotension: -Likely multifactorial - adrenal insufficiency,diureses -midodrine 10mg 3 times daily ? off Levophed ? hydrocortisone, fludrocortisone Qualifiers: Hypotension type: unspecified hypotension type Qualified Code(s): I95.9 - Hypotension, unspecified (2) Enterocolitis: Resolved CT/CT abdomen pelvis w con* [id number] IMPRESSION: New low-density wall thickening seen through much of the colon as well as portions of small bowel raising consideration of enterocolopathy of portal hypertension, enterocolitis (either infectious/inflammatory or ischemic) , or angioedema. Mild increase in ascites which remains small. Large gallstone again noted within gallbladder. Fatty liver. -Gallbladder ultrasound IMPRESSION: 1. Extremely difficult evaluation of the RIGHT upper quadrant due to body habitus. 2. Cholelithiasis without acute cholecystitis. No bile duct dilatation. 3. Cirrhotic liver with hepatic steatosis. (3) Hypokalemia: Replace hypokalemia. Has received some magnesium. Recheck magnesium level. (4) Hypomagnesemia: Received supplementation. Recheck level. (5) Adrenal insufficiency: as above. (6) Acquired hypothyroidism: TSH 5.33 (7) Wall motion abnormality of inferior wall of left ventricle: - History of severe coronary artery disease one-vessel disease, distal RCA treated with balloon and drug-eluting stent, back in 2019 Echocardiogram - Normal LV size with a slightly diminished ejection fraction of 50% (visual). Mild left-ventricular hypertrophy. Wall motion abnormalities as mentioned above Moderate mitral annular calcification. Normal RV size and ejection fraction There is no pericardial effusion. There are no intracardiac masses. Compared to the study from 06/27/2023, the wall motion abnormalities appear to be new Plan ? Serial EKGs, serial troponins, telemetry monitoring ? Aspirin, Plavix on hold -Given wall motion abnormalities, consulted cardiology -For now medical management (8) Acute hypoxic respiratory failure: -Acute hypoxic respiratory failure ? With development of acute respiratory distress syndrome -Secondary to fluid overload, pulmonary edema, systolic CHF -Now with concerns of aspiration pneumonia -BNP over 30,000, chest x-ray showing pulm vascular congestion, resolving - pneumonia, given leukocytosis elevated Pro-Reilly, CRP, resolved -Now with A-fib with RVR, back into normal sinus rhythm ? Chest x-ray shows improving pulmonary vascular congestion ? Plan -Currently off Levophed ? Currently on 10 L, BiPAP as needed, scheduled during the night ? Fluid restrictions at 1000 cc, has diuresed over net 9 L negative ? Continue albumin ? lasix 40mg iv q8hrs scheduled -monitor creatinine monitor urine output monitor potassium ?monitor fluid status, monitor creatinine, -Continue fludrocortisone, ? Zosyn for aspiration pneumonia -Follow-up blood cultures - verapamil on hold -Continue to monitor respiratory status closely -Full code -Eliquis for DVT prophylaxis on hold, SCDs for DVT prophylaxis -Status is stable, prognosis is guarded (9) Pulmonary edema: (10) Fluid overload: (11) CHF (congestive heart failure): Qualifiers: Heart failure type: unspecified Heart failure chronicity: chronic Qualified Code(s): I50.9 - Heart failure, unspecified (12) Acute respiratory distress syndrome: (13) Sepsis: (14) Shock: - Possibly septic shock, given pneumonia, multifactorial given adrenal insufficiency, diuresis ? Component of cardiogenic shock, given wall motion abnormalities on echocardiogram -component of adrenal insufficiency (15) Atrial fibrillation with RVR: (16) Digoxin toxicity: resolved, Digoxin levels over 3, digoxin was stopped amiodarone was stopped continue to monitor monitor potassium (17) Acute anemia: Status post 1 unit PRBC (18) Thrombocytopenia: - Patient has anemia, thrombocytopenia -Hold aspirin, Plavix, Eliquis ? Hemolytic labs, ? Repeat CBC this evening (19) Hyperbilirubinemia: Liver ultrasound no acute findings, next ?we will monitor (20) Aspiration pneumonia: (21) Protein calorie malnutrition: (22) Physical deconditioning: - PT OT -Currently on peripheral nutrition, Plan CAD: Plavix if able to tolerate, asa CHF: as above A-fib: Normally on Eliquis , no hold CKD: GERD: PPI by IV at the moment. COPD: Not in exacerbation. Breathing treatments scheduled and as needed. History of HTN: This appears to be remote history, she is for the most part been having low blood pressures. Currently hypotensive. Smoking addiction: Encourage cessation. Nicotine replacement as needed. DM2: Accu-Cheks every 6 hours, insulin sliding scale. Guesses carb diet. Diabetic neuropathy: Hold off gabapentin for now due to hypotension. HLD: statin for now patient requires hospitalization for chf, fluid overload, Attestations 2 Medical Necessity Statement*: patient requires hospitalization for chf, fluid overload, Diagnoses Hypotension, unspecified hypotension type I95.9 Hypotension type: unspecified hypotension type Enterocolitis K52.9 Hypokalemia E87.6 Hypomagnesemia E83.42 Adrenal insufficiency E27.40 Acquired hypothyroidism E03.9 Wall motion abnormality of inferior wall of left ventricle R94.30 Acute hypoxic respiratory failure J96.01 Pulmonary edema J81.1 Fluid overload E87.70 Acute on chronic congestive heart failure, unspecified heart failure type I50.9 Heart failure type: unspecified Heart failure chronicity: chronic Acute respiratory distress syndrome J80 Sepsis A41.9 Shock R57.9 Atrial fibrillation with RVR I48.91 Digoxin toxicity T46.0X1A Acute anemia D64.9 Thrombocytopenia D69.6 Hyperbilirubinemia E80.6 Aspiration pneumonia J69.0 Protein calorie malnutrition E46 Physical deconditioning R53.81
--- NOTE | 2023-09-11 15:59 | PM.PN ---
Subjective Subjective: The patient's blood pressure is slowly improving. Still continues to have significant lethargy/weakness. She is currently on 10 L of oxygen by nasal cannula. Medications: Medication Review Details: Current Medications Acetaminophen (Acetaminophen 325 Mg Tablet) 650 mg PO Q6H PRN PRN Reason: Mild/Mod Pain Or Temp >/= 101 Last Admin: 09/10/23 20:43 Dose: 650 mg Albuterol/Ipratropium (Ipratropium-Albuterol 3 Ml Neb) 3 ml INHALATION Q6H PRN PRN Reason: SHORTNESS OF BREATH Albuterol/Ipratropium (Ipratropium-Albuterol 3 Ml Neb) 3 ml INHALATION Q6H.RESP [facility] Last Admin: 09/11/23 13:22 Dose: 3 ml Aspirin (Aspirin 81 Mg Ec Tablet) 81 mg PO DAILY [facility] Last Admin: 09/02/23 10:01 Dose: 81 mg Atorvastatin Calcium (Atorvastatin 40 Mg Tablet) 20 mg PO BEDTIME [facility] Last Admin: 09/10/23 20:43 Dose: 20 mg Calcitriol (Calcitriol 0.25 Mcg Capsule) 0.25 mcg PO MoWeFr [facility] Last Admin: 09/11/23 11:31 Dose: 0.25 mcg Calcium Carbonate (Calcium Carbonate 500 Mg Chew Tablet) 1,000 mg PO DAILY [facility] Last Admin: 09/11/23 08:10 Dose: 1,000 mg Citalopram Hydrobromide (Citalopram 20 Mg Tablet) 20 mg PO DAILY [facility] Last Admin: 09/11/23 08:11 Dose: 20 mg Clopidogrel Bisulfate (Clopidogrel 75 Mg Tablet) 75 mg PO DAILY [facility] Last Admin: 09/02/23 10:01 Dose: 75 mg Cyclobenzaprine HCl (Cyclobenzaprine 10 Mg Tablet) 5 mg PO TID PRN PRN Reason: MUSCLE SPASMS Last Admin: 09/11/23 05:26 Dose: 5 mg Fludrocortisone Acetate (Fludrocortisone 0.1 Mg Tablet) 0.1 mg PO DAILY [facility] Last Admin: 09/11/23 08:11 Dose: 0.1 mg Folic Acid (Folic Acid 1 Mg Tablet) 1 mg PO QAM [facility] Last Admin: 09/11/23 05:26 Dose: 1 mg Furosemide (Furosemide 10 Mg/Ml Sdv 4ml) 40 mg IVP Q8H [facility] Last Admin: 09/11/23 15:04 Dose: 40 mg Gabapentin (Gabapentin 300 Mg Capsule) 900 mg PO DAILY [facility] Last Admin: 09/11/23 08:11 Dose: 900 mg Gabapentin (Gabapentin 300 Mg Capsule) 600 mg PO QPM [facility] Last Admin: 09/10/23 17:44 Dose: 600 mg Hydrocortisone (Hydrocortisone 10 Mg Tablet) 10 mg PO QAM [facility] Last Admin: 09/11/23 05:26 Dose: 10 mg norepinephrine (Levophed) 4 mg in 250 mls @ 0 mls/hr IV .Q0M [facility]; Protocol Last Titration: 09/11/23 13:30 Dose: 0 mcg/min, 0 mls/hr fat emulsions 20% (Intralipid 20%) 100 mls @ 8.333 mls/hr IV Q24H [facility] Last Admin: 09/11/23 12:00 Dose: 8.33 mls/hr Dextrose (D5w) 500 mls @ 0 mls/hr IV ONCE PRN; Protocol PRN Reason: Adult Acute Hypoglycemia Prot Dextrose (D10w) 125 mls @ 750 mls/hr IV PRN PRN; Protocol PRN Reason: Adult Acute Hypoglycemia Nursing Protocol Dextrose (D10w) 250 mls @ 1,000 mls/hr IV PRN PRN; Protocol PRN Reason: Adult Acute Hypoglycemia Nursing Protocol Albumin Human (Albumin) 25 g in 100 mls @ 60 mls/hr IV Q8H [facility] Last Admin: 09/11/23 15:03 Dose: 60 mls/hr Piperacillin Sod/Tazobactam (Sod 3.375 gm/ Sodium Chloride) 50 mls @ 12.5 mls/hr IV Q8H [facility] Last Admin: 09/11/23 13:19 Dose: 12.5 mls/hr Multivitamins 10 ml/ AA-Dex 4. (25%-5% w/Lytes) 1,010 mls @ 40 mls/hr IV .Q24H [facility] Last Admin: 09/11/23 12:32 Dose: Not Given Insulin Human Lispro (Insulin Lispro 100 Unit/1 Ml) 0 unit SUBCUT Q6H [facility]; Protocol Last Admin: 09/11/23 11:20 Dose: Not Given Lanolin (Lanolin Oint 7 Gm) 1 applic TOPICAL PRN PRN PRN Reason: DRYNESS Last Admin: 03/09/24 05:01 Dose: 1 applic Levothyroxine Sodium (Levothyroxine 125 Mcg Tablet) 125 mcg PO QAM [facility] Last Admin: 09/11/23 05:26 Dose: 125 mcg Lorazepam (Lorazepam 2 Mg/Ml Inj 10 Ml Mdv) 0.5 mg IVP Q4H PRN PRN Reason: ANXIETY Magnesium Lactate (Magnesium Lactate 84 Mg Tablet) 84 mg PO Q12H [facility] Last Admin: 09/11/23 13:19 Dose: 84 mg Metoclopramide HCl (Metoclopramide 5 Mg/Ml Sdv 2 Ml) 5 mg IVP Q6H PRN PRN Reason: NAUSEA AND VOMITING Last Admin: 09/01/23 17:39 Dose: 5 mg Midodrine (Midodrine 5 Mg Tablet) 10 mg PO Q8H [facility] Last Admin: 09/11/23 11:31 Dose: 10 mg Mirtazapine (Mirtazapine 30 Mg Tablet) 30 mg PO BEDTIME [facility] Last Admin: 09/10/23 20:42 Dose: 30 mg Nicotine (Nicotine 21 Mg Patch) 1 patch TRANSDERMA DAILY PRN PRN Reason: WITHDRAWAL Nicotine Polacrilex (Nicotine 4 Mg Lozenge) 4 mg MUCOUS MEM Q4H PRN PRN Reason: NICOTINE CRAVINGS Ondansetron HCl (Ondansetron 2 Mg/Ml Sdv 2 Ml) 4 mg IVP Q8H PRN PRN Reason: vomiting, or N/V if npo Last Admin: 09/01/23 09:57 Dose: 4 mg Pantoprazole Sodium (Pantoprazole 40 Mg Sdv) 40 mg IVP Q24H [facility] Last Admin: 09/10/23 20:30 Dose: 40 mg Polyethylene Glycol (Polyethylene Glycol 3350 Pkt 17 Gm) 17 gm PO DAILY [facility] Last Admin: 09/11/23 08:12 Dose: 17 gm Potassium Chloride (Potassium Chloride Er 20 Meq Tablet) 40 meq PO Q12H [facility] Last Admin: 09/11/23 08:59 Dose: 40 meq Senna/Docusate Sodium (Sennosides-Docusate Tablet) 2 tab PO DAILY [facility] Last Admin: 09/11/23 08:12 Dose: 2 tab Vitals/I&O/Wt Last Vital Signs Temp 97.8 F 09/11/23 00:10 Pulse 83 09/11/23 14:00 Resp 12 09/11/23 14:00 BP 101/63 09/11/23 14:00 Pulse Ox 92 09/11/23 14:56 O2 Del Method High Flow Nasal Cannula 09/11/23 13:20 O2 Flow Rate 10 09/11/23 13:20 FiO2 50 09/11/23 14:56 09/11/23 09/11/23 09/11/23 06:59 14:59 22:59 Intake Total 619.831 / 1971.201 250.125 / 250.125 Output Total 1500 / 3200 Balance -880.169 / -1228.799 250.125 / 250.125 Weight last 48 hrs Weight 124 lb 4.8 oz Weight 132 lb Physical Exam Narrative: GENERAL: The patient is alert and oriented to place and person. Not in any acute distress. Chronically ill looking. HEENT: Moderate pallor, no icterus or lymphadenopathy.Oral cavity: There are no mucous membrane lesions. NECK: Trachea appears to be central. No masses noted. No JVD or thyromegaly appreciated. RESPIRATORY: Chest is symmetrical. No intercostals muscle retraction or any accessory muscle activation. There is no chest wall tenderness. Breath sounds are heard bilaterally. The breath sounds are diminished in the bases. Scattered coarse crackles. BREASTS: Deferred. HEART: The heart sounds are normal. No S3 or S4. Short systolic murmur in the lower sternal border. No diastolic murmurs. No pericardial rub ABDOMEN: No vessel pulsations or distention. No tenderness. No organomegaly appreciated. Bowel sounds are normally heard. : Deferred. RECTAL: Deferred. LYMPHATIC: No lymphadenopathy noted in the neck. EXTREMITIES: No edema or cyanosis. No clubbing. MUSCULOSKELETAL: No acute joint deformities or swelling SKIN: Extensive superficial ecchymosis bilaterally in the extremities NEUROPSYCHIATRIC: The patient is alert and oriented x2. No focal motor deficits. Urinary Catheter Management: Hooper: Cath Placed During This Visit: yes, but has since been removed by the nurse Reason for Continuing Indwelling Catheter: Accurate Measurement of Urinary Output in Critically Ill Patients Urinary Catheter Date of Insertion: 09/09/23 Urinary Catheter Time of Insertion: 19:03 Date Urinary Catheter Removed: 09/09/23 Time Urinary Catheter Discontinued: 19:02 Data 09/11/23 05:20 09/11/23 05:20 Other Labs: Laboratory Last Values WBC 16.05 10^3/uL (3.29-11.43) H 09/11/23 05:20 RBC 2.46 10^6/uL (3.85-5.65) L 09/11/23 05:20 Hgb 7.90 g/dL (11.27-16.99) L 09/11/23 05:20 Hct 24.5 % (36-47) L 09/11/23 05:20 MCV 99.6 fl (85-98) H 09/11/23 05:20 MCH 32.1 pg (27-33) 09/11/23 05:20 MCHC 32.2 g/dL (30-55) 09/11/23 05:20 RDW 14.6 % (12.1-15.1) 09/11/23 05:20 Plt Count 90 10^3/cmm (157-399) L D 09/11/23 05:20 MPV 13.0 fL (7.4-10.4) H 09/11/23 05:20 Neut % (Auto) 61.6 % 09/11/23 05:20 Lymph % (Auto) 22.5 % 09/11/23 05:20 [place] % (Auto) 10.2 % 09/11/23 05:20 Eos % (Auto) 1.2 % 09/11/23 05:20 Baso % (Auto) 0.6 % 09/11/23 05:20 Neut # (Auto) 9.90 10^3/uL (1.8-7.7) H 09/11/23 05:20 Lymph # (Auto) 3.6 10^3/uL (0.8-4.8) 09/11/23 05:20 [place] # (Auto) 1.6 10^3/uL (0.2-0.9) H 09/11/23 05:20 Eos # (Auto) 0.2 10^3/uL (0.0-0.8) 09/11/23 05:20 Baso # (Auto) 0.1 10^3/uL (0.0-0.1) 09/11/23 05:20 Nucleated RBC % (auto) 0.3 % 09/11/23 05:20 Total Counted 100 (0-100) 09/07/23 21:05 Atypical Lymphs % 0.0 % (0-5) 09/07/23 21:05 Absolute Neutrophils 6.8 10^3/cmm (1.4-6.5) H 09/07/23 21:05 Segmented Neutrophils 72 % 09/07/23 21:05 Abs Segm Neuts (Man) 6.6 10/cmm (1.6-7.1) 09/07/23 21:05 Band Neutrophils 2.0 % 09/07/23 21:05 Abs Band Neuts (Man) 0.2 10^3/cmm (0.0-1.2) 09/07/23 21:05 Absolute Lymphocytes 1.9 10^3/cmm (1.2-3.4) 09/07/23 21:05 Lymphocytes (Manual) 21 % 09/07/23 21:05 Monocytes (Manual) 3.0 % 09/07/23 21:05 Absolute Monocytes 0.3 10^3/cmm (0.1-0.6) 09/07/23 21:05 Eosinophils (Manual) 1 % 09/07/23 21:05 Absolute Eosinophils 0.1 10^3/cmm (0.0-0.7) 09/07/23 21:05 Basophils (Manual) 1.0 % 09/07/23 21:05 Absolute Basophils 0.1 10^3/cmm (0.0-0.2) 09/07/23 21:05 Nucleated RBCs # 0.1 /100WBC 09/11/23 05:20 Platelet Estimate Decreased (Normal) L 09/07/23 21:05 Peripher Smr Path Cons Sent for review 09/03/23 15:14 ESR < 1 mm/hr (0-15) 08/26/23 03:30 Haptoglobin 76.0 mg/L (30-200) 09/03/23 04:40 PT 19.00 SECONDS (12.1-14.9) H 09/06/23 04:43 INR 1.54 (0.8-1.2) H 09/06/23 04:43 APTT 36.7 SECONDS (23.9-36.7) 09/03/23 15:14 Fibrinogen 163 mg/dL (174-498) L 09/03/23 15:14 D-Dimer 3.51 ug/mLFEU (0-0.59) H 09/03/23 15:14 Specimen Type Arterial 09/08/23 04:15 Sample Site Radial, right 09/08/23 04:15 ABG pH 7.56 (7.35-7.45) H 09/08/23 04:15 ABG pCO2 46.5 mmHg (35-45) H 09/08/23 04:15 ABG pO2 63.9 mmHg (80.0-100.0) L 09/08/23 04:15 ABG PO2/FiO2 Ratio 0 09/08/23 04:15 ABG HCO3 41.7 mmol/L (22-26) H 09/08/23 04:15 ABG O2 Saturation 89.2 09/01/23 14:53 ABG Base Excess 17.7 mmol/L (-2.0-2.0) H 09/08/23 04:15 Higinio Test Pos 09/08/23 04:15 VBG pH 7.35 (7.32-7.42) 08/25/23 21:27 VBG pCO2 42.1 mmHg (41-51) 08/25/23 21:27 VBG pO2 28.9 mmHg (25-40) 08/25/23 21:27 VBG HCO3 23.2 mmol/L (24-28) L 08/25/23 21:27 VBG Base Excess -2.4 mmol/L (-3.0-3.0) 08/25/23 21:27 VBG Hematocrit 39.4 % (37-47) 08/25/23 21:27 A-a O2 Gradient 42.3 mmHg (5-10) H 09/01/23 14:53 Hematocrit 27.9 % (37-47) L 09/08/23 04:15 Hgb O2 Saturation 87.8 % (95-100) L 09/01/23 14:53 Carboxyhemoglobin 1.1 %THgb (0.4-20.1) 09/01/23 14:53 Methemoglobin 0.5 % (0.4-1.5) 09/01/23 14:53 Total Hemoglobin 10.0 g/dL (12-16) L 09/01/23 14:53 Sodium 137.0 mmol/L (131-143) 09/01/23 14:53 Potassium 2.7 mmol/L (3.5-5.0) L 09/01/23 14:53 Glucose 138.0 mg/dL (70-115) H 09/01/23 14:53 Ionized Calcium 1.1 mmol/L (1.1-1.4) 09/01/23 14:53 O2 Delivery Device Bipap 09/08/23 04:15 O2 Liters/Min 12.0 % 09/07/23 04:26 FiO2 50.0 % 09/08/23 04:15 Umbrella Tipper ID [email or web address] 09/08/23 04:15 Sodium 140 mmol/L (136-145) 09/11/23 05:20 Potassium 3.4 mmol/L (3.5-5.1) L 09/11/23 05:20 Chloride 94 mmol/L (98-107) L 09/11/23 05:20 Carbon Dioxide 34 mmol/L (22-29) H 09/11/23 05:20 Anion Gap 15.4 (5-19) 09/11/23 05:20 BUN 49 mg/dL (8-23) H 09/11/23 05:20 Creatinine 0.8 mg/dL (0.5-0.9) 09/11/23 05:20 GFR Calculation 71.5 mL/min (90-130) L 09/11/23 05:20 Glucose 77 mg/dL (65-115) 09/11/23 05:20 POC Glucose 122 mg/dL (70-110) H 09/11/23 11:08 Calculated Osmolality 302 mOsm/kg (285-295) H 09/11/23 05:20 Lactic Acid 0.8 mmol/L (0.5-2.2) 08/26/23 08:58 Lactic Acid (Sepsis) 1.7 mmol/L (0.5-2.2) 08/25/23 19:43 Lactate 1.6 mmol/L (0.5-2.2) 09/06/23 04:43 Calcium 10.9 mg/dL (8.5-10.5) H 09/11/23 05:20 Phosphorus 3.4 mg/dL (2.5-4.5) 09/11/23 05:20 Magnesium 2.5 mg/dL (1.7-2.3) H 09/11/23 05:20 Iron 63 ug/dL (37-145) 09/03/23 04:40 Ferritin 560 ng/mL (15-150) H 09/03/23 04:40 Total Bilirubin 1.2 mg/dL (0.15-1.2) 09/11/23 05:20 Direct Bilirubin 1.00 mg/dL (0.00-0.30) H 09/02/23 03:20 Indirect Bilirubin 2.60 09/02/23 03:20 GGT 76 U/L (5-36) H 09/02/23 03:20 AST 63 U/L (0-32) H 09/11/23 05:20 ALT 31 U/L (0-33) 09/11/23 05:20 Alkaline Phosphatase 75 U/L (35-105) 09/11/23 05:20 Lactate Dehydrogenase 447 U/L (135-214) H 09/03/23 04:40 Creatine Kinase 25 U/L (26-192) L 09/03/23 04:40 Troponin T Baseline 30 ng/L (0-10) H 08/27/23 09:22 Troponin T 120 Minute 38.12 ng/L (0-10) H 08/27/23 11:33 Delta Troponin T 8.12 ABS# (0-10) 08/27/23 11:33 Troponin T Hi Sens 6Hr 33.09 ng/L (0-10) H 08/27/23 15:22 Troponin T Hi Sens 6Hr Delta 3.09 ng/L (0-12) 08/27/23 15:22 C-Reactive Protein 35.3 mg/L (0.0-4.9) H 09/11/23 05:20 NT-Pro-B Natriuret Pep 82185 pg/mL (0-125) H 09/11/23 05:20 Total Protein 7.7 g/dL (6.6-8.7) 09/11/23 05:20 Albumin 5.6 g/dL (3.5-5.2) H 09/11/23 05:20 Globulin 2.1 g/dL (1.3-4.6) 09/11/23 05:20 Lipase 5 U/L (13-60) L 09/02/23 03:20 Vitamin B12 530 pg/mL (232-1245) 08/26/23 07:00 Folate 17.2 ng/mL (4.8-37.3) 08/25/23 21:27 Procalcitonin 0.39 ng/mL (0-0.5) 09/11/23 05:20 TSH 5.33 uIU/mL (0.27-4.20) H 09/07/23 09:21 Free T4 1.72 ng/dL (0.82-1.77) 09/07/23 09:21 Free T3 1.1 PG/ML (2.0-4.4) L 09/07/23 09:21 Random Cortisol 8.44 ug/dL (2.47-19.5) 09/08/23 02:58 Urine Color Dark yellow (Yellow) 08/25/23 17:40 Urine Appearance Clear (CLEAR) 08/25/23 17:40 Urine pH 5 (5-7) 08/25/23 17:40 Ur Specific [place] 1.020 (1.005-1.030) 08/25/23 17:40 Urine Protein Trace (Negative) 08/25/23 17:40 Urine Glucose (UA) Norm (Normal) 08/25/23 17:40 Urine Ketones 1+ (Negative) H 08/25/23 17:40 Urine Blood Neg (Negative) 08/25/23 17:40 Urine Nitrate Negative (Negative) 08/25/23 17:40 Urine Bilirubin 2+ (Negative) H 08/25/23 17:40 Urine Urobilinogen 4+ mg/dL (Negative) H 08/25/23 17:40 Ur Leukocyte Esterase Negative (Negative) 08/25/23 17:40 Urine RBC None /hpf (0-2) 08/25/23 17:40 Urine WBC 0-4 /hpf (0-5) H 08/25/23 17:40 Ur Squamous Epith Cells None /hpf (0-5) 08/25/23 17:40 Amorphous Sediment Not Reportable 08/25/23 17:40 Urine Bacteria Trace /hpf (NONE) 08/25/23 17:40 Vancomycin Trough 29.9 ug/mL (10-15) H* 09/01/23 09:27 Digoxin 1.1 ng/mL (0.6-1.2) 09/03/23 04:40 Serum Ketones Negative (Negative) 08/25/23 21:27 IgA 629 mg/dL (70-320) H 08/25/23 21:27 BRENT Nuclear Membr Pat Nuclear, speckled A 08/26/23 08:58 BRENT IFA Animal Tis Ttr 1:40 titer H 08/26/23 08:58 BRENT IFA Animal Tis Res Positive (NEGATIVE) A 08/26/23 08:58 MINA-1 Antibody <1.0 neg AI (<1.0 NEG) 08/26/23 08:58 SS-A Antibody <1.0 neg AI (<1.0 NEG) 08/26/23 08:58 SS-B Antibody <1.0 neg AI (<1.0 NEG) 08/26/23 08:58 Sm (Arias) Antibody <1.0 neg AI (<1.0 NEG) 08/26/23 08:58 MERINGUER Antibody <1.0 neg AI (<1.0 NEG) 08/26/23 08:58 Scl-70 Antibody <1.0 neg AI (<1.0 NEG) 08/26/23 08:58 Anti-ds DNA IgG (Crith) Negative (NEGATIVE) 08/26/23 08:58 Centromere B Antibody <1.0 neg AI (<1.0 NEG) 08/26/23 08:58 Tiss Transglutamin IgG <1.0 U/mL 08/25/23 21:27 Tiss Transglutamin IgA <1.0 U/mL 08/25/23 21:27 Thyroid Peroxidase Ab <1 IU/mL (<9) 08/26/23 08:58 Anti-Gliadin IgG JENNA Res 1.8 U/mL 08/25/23 21:27 Anti-Gliad IgA JENNA Res 2.3 U/mL 08/25/23 21:27 Complement C3c 62 mg/dL (83-193) L 08/26/23 08:58 Complement C4c 41 mg/dL (15-57) 08/26/23 08:58 CH50 Classical Pathway 27 U/mL (31-60) L 08/26/23 08:58 Adenovirus (PCR) Not detected (NOT DETECT) 08/26/23 15:00 C. pneumoniae DNA (PCR) Not detected (NOT DETECT) 08/26/23 15:00 C. difficile (PCR) Negative (Negative) 09/06/23 16:30 Coronavirus 229E (PCR) Not detected (NOT DETECT) 08/26/23 15:00 CMV Culture Source blood 08/26/23 08:58 CMV IgG Ab >10.00 U/mL H 08/25/23 21:27 CMV IgM Ab <30.00 AU/mL 08/25/23 21:27 CMV DNA Quant PCR Not detected IU/mL 08/26/23 08:58 CMV Qnt PCR Interp Not detected Log IU/mL 08/26/23 08:58 Hepatitis A IgM Ab Non-reactive (Nonreactive) 08/31/23 04:10 Hep Bs Antigen Non-reactive (Nonreactive) 08/31/23 04:10 Hep B Core IgM Ab Non-reactive (Nonreactive) 08/31/23 04:10 Hepatitis C Antibody Non-reactive (Nonreactive) 08/31/23 04:10 Human Metapneumovir PCR Not detected (NOT DETECT) 08/26/23 15:00 Influenza A (H1) PCR Not detected (NOT DETECT) 08/26/23 15:00 Influ A (H1/09) PCR Not detected (NOT DETECT) 08/26/23 15:00 Influenza A (H3) PCR Not detected (NOT DETECT) 08/26/23 15:00 Influenza Type A (PCR) Not detected (NOT DETECT) 08/26/23 15:00 Influenza Type B (PCR) Not detected (NOT DETECT) 08/26/23 15:00 M. pneumoniae (PCR) Not detected (NOT DETECT) 08/26/23 15:00 Parainfluenza 1 (PCR) Not detected (NOT DETECT) 08/26/23 15:00 Parainfluenza 2 (PCR) Not detected (NOT DETECT) 08/26/23 15:00 Parainfluenza 3 (PCR) Not detected (NOT DETECT) 08/26/23 15:00 Parainfluenza 4 (PCR) Not detected (NOT DETECT) 08/26/23 15:00 RSV Type A (PCR) Not detected (NOT DETECT) 08/26/23 15:00 RSV Type B (PCR) Not detected (NOT DETECT) 08/26/23 15:00 Entero/Rhino (PCR) Not detected (NOT DETECT) 08/26/23 15:00 SARS-CoV-2 (PCR) Not detected (NOT DETECT) 08/26/23 15:00 Blood Type B Positive 09/07/23 09:21 Rho(D) Type Rh positive 09/07/23 09:21 Antibody Screen Negative 09/07/23 09:21 Crossmatch See Detail 09/07/23 09:21 A&P Assessment and plan (1) Atrial fibrillation with RVR: Patient continues to be in sinus rhythm. Will continue on the current management. (2) CHF (congestive heart failure): May continue on the as needed Lasix. Qualifiers: Heart failure chronicity: chronic Heart failure type: unspecified Qualified Code(s): I50.9 - Heart failure, unspecified (3) Hypotension: The blood pressure seems to be staying in the upper 80s and low 90s today. Still staying off the dopamine. Qualifiers: Hypotension type: unspecified hypotension type Qualified Code(s): I95.9 - Hypotension, unspecified (4) ASHD (arteriosclerotic heart disease): Since her cardiac status seems to be stable, may continue on the current management. (5) Thrombocytopenia: Slowly seems to be improving. (6) Wall motion abnormality of inferior wall of left ventricle: May suggest underlying coronary disease. Patient is currently asymptomatic. Consider doing a Myocardial perfusion imaging, once her clinical status is more stable. (7) Bilateral pneumonia: Antibiotic treatment as per the primary. Clinically seems to be improving Qualifiers: Lung location: lower lobe of lung Pneumonia type: due to unspecified organism Qualified Code(s): J18.9 - Pneumonia, unspecified organism Plan In view of the patient's reported physical condition and hypoxia, it may be appropriate to hold off on any further cardiac intervention at this point Attestations Medical Necessity Statement*: Disposition as per the primary Coding Level of Care Code 54763 Diagnoses Atrial fibrillation with RVR I48.91 Acute on chronic congestive heart failure, unspecified heart failure type I50.9 Heart failure chronicity: chronic Heart failure type: unspecified Hypotension, unspecified hypotension type I95.9 Hypotension type: unspecified hypotension type ASHD (arteriosclerotic heart disease) I25.10 Thrombocytopenia D69.6 Wall motion abnormality of inferior wall of left ventricle R94.30 Pneumonia of both lower lobes due to infectious organism J18.9 Lung location: lower lobe of lung Pneumonia type: due to unspecified organism
--- NOTE | 2023-09-11 16:31 | PC.OT ---
OT treatment attempted with pt on hold due to being on BIPAP; will attempt at later time.
[2023-09-11 17:00] LABS: Glucose Point of Care 131 mg/dL (70-110)
[2023-09-11] MEDS: gabapentin 300 mg Capsule 600 MG PO (17:46)
--- NOTE | 2023-09-11 18:52 | PC.NURSE ---
Right groin sheath pulled approximately 1730. tolerated dialysis well. recovered from analytical laboratory technician well. uneventful shift
--- NOTE | 2023-09-11 18:55 | PC.NURSE ---
patient lethargic but becomes alert and answers questions with stimuli, tolerating bipap per RT due to O2 desatting on NC, uneventful shift
[2023-09-11 19:18] LABS: C.Diff PCR (Lab) NEGATIVE (Negative)
[2023-09-11 19:39] LABS: Anion Gap 18.6 (5-19); Blood Urea Nitrogen 57 mg/dL (8-23); Calcium 10.7 mg/dL (8.5-10.5); Carbon Dioxide 34 mmol/L (22-29); Chloride 94 mmol/L (98-107); Creatinine Clr Calc Pharmacy 53.0229; Glomerular Filtration Rate 62.5 mL/min (90-130); Glucose 126 mg/dL (65-115); Osmolality Calculated 313 mOsm/kg (285-295); Potassium 3.6 mmol/L (3.5-5.1); Sodium 143 mmol/L (136-145)
[2023-09-11] MEDS: mirtazapine 30 mg Tablet PO (21:52)
[2023-09-11] MEDS: pantoprazole 40 mg SDV IVP (21:52)
[2023-09-11] MEDS: atorvastatin 40 mg Tablet 20 MG PO (21:52)
--- NOTE | 2023-09-11 22:50 | PC.NURSE ---
Levophed drip: At the beginning of this nurse's shift the levophed drip was running at 1 mcg/min. MAR was updated to reflect this.
[2023-09-12] VITALS (92 sets, daily range): BP systolic 78–116; BP diastolic 50–74; PULSE 77–97; RESP 8–34; TEMP 36.3–37.2; O2SAT 87–100; BMI 23.0
[2023-09-12] MEDS: FUROsemide 10 mg/mL SDV 4mL 40 MG IVP ×3 (00:25→16:54)
[2023-09-12] MEDS: albumin 25 G/100 ML BAG 60 G IV ×4 (00:25→23:20)
[2023-09-12] MEDS: acetaminophen 325 mg Tablet 650 MG PO ×3 (00:39→20:39)
[2023-09-12 00:54] LABS: Glucose Point of Care 115 mg/dL (70-110)
[2023-09-12] MEDS: midodrine 5 mg TABLET 10 MG PO ×4 (02:31→20:26)
[2023-09-12] MEDS: magnesium lactate 84 mg Tablet PO ×2 (02:31→13:25)
[2023-09-12] MEDS: levothyroxine 125 mcg Tablet PO (05:34)
[2023-09-12] MEDS: folic acid 1 mg Tablet PO (05:34)
[2023-09-12] MEDS: piperacillin-tazobactam 3.375 GM in sodium chloride 0.9% (plus) 50 ML IV ×3 (05:34→20:26)
[2023-09-12] MEDS: hydrocortisone 10 mg Tablet PO (05:34)
[2023-09-12 05:50] LABS: Glucose Point of Care 110 mg/dL (70-110)
[2023-09-12 05:59] LABS: Basophils # 0.1 10^3/uL (0.0-0.1); Basophils % 0.8 %; Eosinophils # 0.3 10^3/uL (0.0-0.8); Eosinophils % 1.8 %; Hematocrit 24.7 % (36-47); Lymphocytes # 4.4 10^3/uL (0.8-4.8); Lymphocytes % 25.9 %; Mean Corpuscular HGB Conc 31.2 g/dL (30-55); Mean Corpuscular Hemoglobin 31.4 pg (27-33); Mean Corpuscular Volume 100.8 fl (85-98); Mean Platelet Volume 13.4 fL (7.4-10.4); Monocytes # 1.9 10^3/uL (0.2-0.9); Monocytes % 11.1 %; Neutrophils # 9.32 10^3/uL (1.8-7.7); Neutrophils % 55.6 %; Nucleated Red Blood Cells # 0.2 /100WBC; Nucleated Red Blood Cells % 1.1 %; Platelet Count 121 10^3/cmm (157-399); Red Blood Count 2.45 10^6/uL (3.85-5.65); Red Cell Distribution Width 14.6 % (12.1-15.1); White Blood Count 16.78 10^3/uL (3.29-11.43)
[2023-09-12 06:23] LABS: Alanine Aminotransferase 45 U/L (0-33); Alkaline Phosphatase 78 U/L (35-105); Aspartate Amino Transferase 91 U/L (0-32); Blood Urea Nitrogen 62 mg/dL (8-23); C Reactive Protein 21.6 mg/L (0.0-4.9); Calcium 11.1 mg/dL (8.5-10.5); Carbon Dioxide 31 mmol/L (22-29); Chloride 95 mmol/L (98-107); Creatinine Clr Calc Pharmacy 49.2763; Globulin 2.1 g/dL (1.3-4.6); Glomerular Filtration Rate 55.3 mL/min (90-130); Glucose 95 mg/dL (65-115); Magnesium 2.6 mg/dL (1.7-2.3); Osmolality Calculated 315 mOsm/kg (285-295); Sodium 144 mmol/L (136-145); Total Bilirubin 1.2 mg/dL (0.15-1.2); Total Protein 8.1 g/dL (6.6-8.7)
[2023-09-12 06:30] LABS: Slide Review Slide Review Perform
[2023-09-12 06:35] LABS: NT Pro B Type Natriuretic Pept 32380 pg/mL (0-125); Procalcitonin 0.45 ng/mL (0-0.5)
[2023-09-12] MEDS: ipratropium-albuterol 3 mL Neb INHALATION ×3 (07:43→20:49)
[2023-09-12] MEDS: AA-Dex 4.25%-5% w/Lytes 1,000 ML with multivitamin inj 10 ML 20 ML IV (09:17)
[2023-09-12] MEDS: fludrocortisone 0.1 mg Tablet 0.100000000000000006 MG PO (09:22)
[2023-09-12] MEDS: potassium chloride ER 20 mEq Tablet 40 MEQ PO ×2 (09:22→20:26)
[2023-09-12] MEDS: sennosides-docusate Tablet 2 TAB PO (09:23)
[2023-09-12] MEDS: gabapentin 300 mg Capsule 900 MG PO (09:23)
[2023-09-12] MEDS: citalopram 20 mg Tablet PO (09:23)
[2023-09-12] MEDS: calcium carbonate 500 mg Chew Tablet 1000 MG PO (09:24)
[2023-09-12] MEDS: metOLazone 5 MG Tablet PO (09:38)
[2023-09-12 12:16] LABS: Glucose Point of Care 110 mg/dL (70-110)
--- NOTE | 2023-09-12 14:10 | P.PN_ITS ---
Subjective 2 Subjective: Patient was seen this morning, currently on 1 of Levophed, she is alert oriented x 3, currently on 12 L, I had extensive discussion with her about her goals of care, included options of continuing medical interventions, pursuing placing her at a long-term care facility such as [facility] in [place] versus going home on hospice, this morning she tells me that her life is worth fighting for her, and she wants to continue fighting, she wants to go to long-term care facility she is in [place], she understands that we will be a prolonged process it could take weeks to months before she gets better to be discharged if she ever gets better from her acute respiratory distress syndrome, she understands that she might require BiPAP for extended periods of time, she understands she might require intubation, Vitals/I&O/Wt Last Vital Signs Temp 98.6 F 09/12/23 06:15 Pulse 94 09/12/23 13:56 Resp 28 H 09/12/23 13:45 BP 108/64 09/12/23 10:45 Pulse Ox 92 09/12/23 13:56 O2 Del Method BiPAP 09/12/23 13:45 O2 Flow Rate 10 09/12/23 02:38 FiO2 50 09/12/23 13:56 09/11/23 09/12/23 09/12/23 22:59 06:59 14:59 Intake Total 172.5 / 422.625 274.563 / 697.188 50 / 50 Output Total 1350 / 1350 650 / 2000 Balance -1177.5 / -927.375 -375.437 / -1302.812 50 / 50 Weight last 48 hrs Weight 60.895 kg Weight 56.382 kg Physical Exam 2 Const: COMMON NORMALS: no acute distress and patient oriented x3 GENERAL APPEARANCE: ill appearing and frail appearing Resp: COMMON NORMALS: normal respiratory effort, No retractions, No use of accessory muscles and clear to auscultation bilaterally AUSCULTATION: clear to auscultation bilaterally Cardio: COMMON NORMALS: regular rate, regular rhythm, S1 normal heart sound present and S2 normal heart sound present RATE: regular rate RHYTHM: r egular rhythm HEART SOUNDS: S1 normal heart sound present and S2 normal heart sound present GI: COMMON NORMALS: Normal to inspection, nondistended, normoactive bowel sounds present and non-tender Extremity: COMMON NORMALS: no pedal edema Neuro: COMMON NORMALS: patient oriented x3 Urinary Catheter Management: Hooper: Cath Placed During This Visit: yes, but has since been removed by the nurse Reason for Continuing Indwelling Catheter: Accurate Measurement of Urinary Output in Critically Ill Patients Urinary Catheter Date of Insertion: 09/09/23 Urinary Catheter Time of Insertion: 19:03 Date Urinary Catheter Removed: 09/09/23 Time Urinary Catheter Discontinued: 19:02 Data 09/12/23 05:25 09/12/23 05:25 A&P Assessment and plan (1) Hypotension: -Likely multifactorial - adrenal insufficiency,diureses -midodrine 10mg 3 times daily ? off Levophed ? hydrocortisone, fludrocortisone Qualifiers: Hypotension type: unspecified hypotension type Qualified Code(s): I95.9 - Hypotension, unspecified (2) Enterocolitis: Resolved CT/CT abdomen pelvis w con* [id number] IMPRESSION: New low-density wall thickening seen through much of the colon as well as portions of small bowel raising consideration of enterocolopathy of portal hypertension, enterocolitis (either infectious/inflammatory or ischemic) , or angioedema. Mild increase in ascites which remains small. Large gallstone again noted within gallbladder. Fatty liver. -Gallbladder ultrasound IMPRESSION: 1. Extremely difficult evaluation of the RIGHT upper quadrant due to body habitus. 2. Cholelithiasis without acute cholecystitis. No bile duct dilatation. 3. Cirrhotic liver with hepatic steatosis. (3) Hypokalemia: Replace hypokalemia. Has received some magnesium. Recheck magnesium level. (4) Hypomagnesemia: Received supplementation. Recheck level. (5) Adrenal insufficiency: as above. (6) Acquired hypothyroidism: TSH 5.33 (7) Wall motion abnormality of inferior wall of left ventricle: - History of severe coronary artery disease one-vessel disease, distal RCA treated with balloon and drug-eluting stent, back in 2019 Echocardiogram - Normal LV size with a slightly diminished ejection fraction of 50% (visual). Mild left-ventricular hypertrophy. Wall motion abnormalities as mentioned above Moderate mitral annular calcification. Normal RV size and ejection fraction There is no pericardial effusion. There are no intracardiac masses. Compared to the study from 06/27/2023, the wall motion abnormalities appear to be new Plan ? Serial EKGs, serial troponins, telemetry monitoring ? Aspirin, Plavix on hold -Given wall motion abnormalities, consulted cardiology -For now medical management (8) Acute hypoxic respiratory failure: -Acute hypoxic respiratory failure ? With development of acute respiratory distress syndrome -Secondary to fluid overload, pulmonary edema, systolic CHF -Now with concerns of aspiration pneumonia -BNP over 30,000, chest x-ray showing pulm vascular congestion, resolving - pneumonia, given leukocytosis elevated Pro-Reilly, CRP, resolved -Now with A-fib with RVR, back into normal sinus rhythm ? Chest x-ray shows improving pulmonary vascular congestion ? Plan -Currently on Levophed ? Currently on 12 L, BiPAP as needed, scheduled during the night ? Fluid restrictions at 1000 cc, has diuresed over net 10 L negative ? Continue albumin ? lasix 40mg iv q8hrs scheduled -monitor creatinine monitor urine output monitor potassium ?monitor fluid status, monitor creatinine, -Continue fludrocortisone, ? Zosyn for aspiration pneumonia -Follow-up blood cultures - verapamil on hold -Continue to monitor respiratory status closely -Full code -Eliquis for DVT prophylaxis on hold, SCDs for DVT prophylaxis -Status is stable, prognosis is guarded (9) Pulmonary edema: (10) Fluid overload: (11) CHF (congestive heart failure): Qualifiers: Heart failure type: unspecified Heart failure chronicity: chronic Qualified Code(s): I50.9 - Heart failure, unspecified (12) Acute respiratory distress syndrome: (13) Sepsis: (14) Shock: - Possibly septic shock, given pneumonia, multifactorial given adrenal insufficiency, diuresis ? Component of cardiogenic shock, given wall motion abnormalities on echocardiogram -component of adrenal insufficiency (15) Atrial fibrillation with RVR: (16) Digoxin toxicity: resolved, Digoxin levels over 3, digoxin was stopped amiodarone was stopped continue to monitor monitor potassium (17) Acute anemia: Status post 1 unit PRBC (18) Thrombocytopenia: - Patient has anemia, thrombocytopenia -Hold aspirin, Plavix, Eliquis ? Hemolytic labs, ? Repeat CBC this evening (19) Hyperbilirubinemia: Liver ultrasound no acute findings, next ?we will monitor (20) Aspiration pneumonia: (21) Protein calorie malnutrition: (22) Physical deconditioning: - PT OT -Currently on peripheral nutrition, Plan CAD: Plavix if able to tolerate, asa CHF: as above A-fib: Normally on Eliquis , no hold CKD: GERD: PPI by IV at the moment. COPD: Not in exacerbation. Breathing treatments scheduled and as needed. History of HTN: This appears to be remote history, she is for the most part been having low blood pressures. Currently hypotensive. Smoking addiction: Encourage cessation. Nicotine replacement as needed. DM2: Accu-Cheks every 6 hours, insulin sliding scale. Guesses carb diet. Diabetic neuropathy: Hold off gabapentin for now due to hypotension. HLD: statin for now patient requires hospitalization for chf, fluid overload, plan for today continue IV diuresis, will check BMP this afternoon, decide on further doses of Lasix Attestations 2 Medical Necessity Statement*: Patient requires hospitalization for fluid overload, acute on chronic hypoxic respiratory failure requiring IV diuresis, currently on high flow requiring intermittent diuresis and BiPAP during the day scheduled during the night Diagnoses Hypotension, unspecified hypotension type I95.9 Hypotension type: unspecified hypotension type Enterocolitis K52.9 Hypokalemia E87.6 Hypomagnesemia E83.42 Adrenal insufficiency E27.40 Acquired hypothyroidism E03.9 Wall motion abnormality of inferior wall of left ventricle R94.30 Acute hypoxic respiratory failure J96.01 Pulmonary edema J81.1 Fluid overload E87.70 Acute on chronic congestive heart failure, unspecified heart failure type I50.9 Heart failure type: unspecified Heart failure chronicity: chronic Acute respiratory distress syndrome J80 Sepsis A41.9 Shock R57.9 Atrial fibrillation with RVR I48.91 Digoxin toxicity T46.0X1A Acute anemia D64.9 Thrombocytopenia D69.6 Hyperbilirubinemia E80.6 Aspiration pneumonia J69.0 Protein calorie malnutrition E46 Physical deconditioning R53.81
[2023-09-12 14:59] LABS: Anion Gap 21.6 (5-19); Blood Urea Nitrogen 66 mg/dL (8-23); Calcium 10.7 mg/dL (8.5-10.5); Carbon Dioxide 30 mmol/L (22-29); Chloride 96 mmol/L (98-107); Creatinine Clr Calc Pharmacy 49.2763; Glomerular Filtration Rate 55.3 mL/min (90-130); Glucose 141 mg/dL (65-115); Osmolality Calculated 317 mOsm/kg (285-295); Potassium 4.6 mmol/L (3.5-5.1); Sodium 143 mmol/L (136-145)
[2023-09-12] MEDS: gabapentin 300 mg Capsule 600 MG PO (16:59)
--- NOTE | 2023-09-12 17:27 | PC.OT ---
OT tx attempted. Pt lying in bed with bipap in place. Pt has eyes closed, O2 sats 87% with no activity. OT tx withheld due to history of rapid desaturation with minimal activity. Will attempt again tomorrow pending pts status.
[2023-09-12 17:48] LABS: Glucose Point of Care 112 mg/dL (70-110)
--- NOTE | 2023-09-12 19:41 | P.PN_ITS ---
Subjective 2 Subjective: Patient still very lethargic and short of breath with minimal activities. Currently she is on oxygen 15 L by nasal cannula. No fever, chills or cough. Medications: Medication Review Details: Current Medications Acetaminophen (Acetaminophen 325 Mg Tablet) 650 mg PO Q6H PRN PRN Reason: Mild/Mod Pain Or Temp >/= 101 Last Admin: 09/12/23 09:52 Dose: 650 mg Albuterol/Ipratropium (Ipratropium-Albuterol 3 Ml Neb) 3 ml INHALATION Q6H PRN PRN Reason: SHORTNESS OF BREATH Albuterol/Ipratropium (Ipratropium-Albuterol 3 Ml Neb) 3 ml INHALATION Q6H.RESP [facility] Last Admin: 09/12/23 13:47 Dose: 3 ml Aspirin (Aspirin 81 Mg Ec Tablet) 81 mg PO DAILY [facility] Last Admin: 09/02/23 10:01 Dose: 81 mg Atorvastatin Calcium (Atorvastatin 40 Mg Tablet) 20 mg PO BEDTIME [facility] Last Admin: 09/11/23 21:52 Dose: 20 mg Calcitriol (Calcitriol 0.25 Mcg Capsule) 0.25 mcg PO MoWeFr [facility] Last Admin: 09/11/23 11:31 Dose: 0.25 mcg Calcium Carbonate (Calcium Carbonate 500 Mg Chew Tablet) 1,000 mg PO DAILY [facility] Last Admin: 09/12/23 09:24 Dose: 1,000 mg Citalopram Hydrobromide (Citalopram 20 Mg Tablet) 20 mg PO DAILY [facility] Last Admin: 09/12/23 09:23 Dose: 20 mg Clopidogrel Bisulfate (Clopidogrel 75 Mg Tablet) 75 mg PO DAILY [facility] Last Admin: 09/02/23 10:01 Dose: 75 mg Cyclobenzaprine HCl (Cyclobenzaprine 10 Mg Tablet) 5 mg PO TID PRN PRN Reason: MUSCLE SPASMS Last Admin: 09/11/23 05:26 Dose: 5 mg Fludrocortisone Acetate (Fludrocortisone 0.1 Mg Tablet) 0.1 mg PO DAILY [facility] Last Admin: 09/12/23 09:22 Dose: 0.1 mg Folic Acid (Folic Acid 1 Mg Tablet) 1 mg PO QAM [facility] Last Admin: 09/12/23 05:34 Dose: 1 mg Furosemide (Furosemide 10 Mg/Ml Sdv 4ml) 40 mg IVP Q8H [facility] Last Admin: 09/12/23 16:54 Dose: 40 mg Gabapentin (Gabapentin 300 Mg Capsule) 900 mg PO DAILY [facility] Last Admin: 09/12/23 09:23 Dose: 900 mg Gabapentin (Gabapentin 300 Mg Capsule) 600 mg PO QPM [facility] Last Admin: 09/12/23 16:59 Dose: 600 mg Hydrocortisone (Hydrocortisone 10 Mg Tablet) 10 mg PO QAM [facility] Last Admin: 09/12/23 05:34 Dose: 10 mg norepinephrine (Levophed) 4 mg in 250 mls @ 0 mls/hr IV .Q0M [facility]; Protocol Last Titration: 09/12/23 14:00 Dose: 0 mcg/min, 0 mls/hr fat emulsions 20% (Intralipid 20%) 100 mls @ 8.333 mls/hr IV Q24H [facility] Last Admin: 09/12/23 12:29 Dose: 8.33 mls/hr Dextrose (D5w) 500 mls @ 0 mls/hr IV ONCE PRN; Protocol PRN Reason: Adult Acute Hypoglycemia Prot Dextrose (D10w) 125 mls @ 750 mls/hr IV PRN PRN; Protocol PRN Reason: Adult Acute Hypoglycemia Nursing Protocol Dextrose (D10w) 250 mls @ 1,000 mls/hr IV PRN PRN; Protocol PRN Reason: Adult Acute Hypoglycemia Nursing Protocol Albumin Human (Albumin) 25 g in 100 mls @ 60 mls/hr IV Q8H [facility] Last Admin: 09/12/23 14:58 Dose: 60 mls/hr Piperacillin Sod/Tazobactam (Sod 3.375 gm/ Sodium Chloride) 50 mls @ 12.5 mls/hr IV Q8H [facility] Last Admin: 09/12/23 13:25 Dose: 12.5 mls/hr Multivitamins 10 ml/ AA-Dex 4. (25%-5% w/Lytes) 1,010 mls @ 20 mls/hr IV .Q24H [facility] Last Admin: 09/12/23 09:17 Dose: 20 mls/hr Insulin Human Lispro (Insulin Lispro 100 Unit/1 Ml) 0 unit SUBCUT Q6H [facility]; Protocol Last Admin: 09/12/23 16:59 Dose: Not Given Lanolin (Lanolin Oint 7 Gm) 1 applic TOPICAL PRN PRN PRN Reason: DRYNESS Last Admin: 08/31/23 05:01 Dose: 1 applic Levothyroxine Sodium (Levothyroxine 125 Mcg Tablet) 125 mcg PO QAM [facility] Last Admin: 09/12/23 05:34 Dose: 125 mcg Lorazepam (Lorazepam 2 Mg/Ml Inj 10 Ml Mdv) 0.5 mg IVP Q4H PRN PRN Reason: ANXIETY Magnesium Lactate (Magnesium Lactate 84 Mg Tablet) 84 mg PO Q12H [facility] Last Admin: 09/12/23 13:25 Dose: 84 mg Metoclopramide HCl (Metoclopramide 5 Mg/Ml Sdv 2 Ml) 5 mg IVP Q6H PRN PRN Reason: NAUSEA AND VOMITING Last Admin: 09/01/23 17:39 Dose: 5 mg Midodrine (Midodrine 5 Mg Tablet) 10 mg PO Q6H [facility] Last Admin: 09/12/23 14:58 Dose: 10 mg Mirtazapine (Mirtazapine 30 Mg Tablet) 30 mg PO BEDTIME [facility] Last Admin: 09/11/23 21:52 Dose: 30 mg Nicotine (Nicotine 21 Mg Patch) 1 patch TRANSDERMA DAILY PRN PRN Reason: WITHDRAWAL Nicotine Polacrilex (Nicotine 4 Mg Lozenge) 4 mg MUCOUS MEM Q4H PRN PRN Reason: NICOTINE CRAVINGS Ondansetron HCl (Ondansetron 2 Mg/Ml Sdv 2 Ml) 4 mg IVP Q8H PRN PRN Reason: vomiting, or N/V if npo Last Admin: 09/01/23 09:57 Dose: 4 mg Pantoprazole Sodium (Pantoprazole 40 Mg Sdv) 40 mg IVP Q24H [facility] Last Admin: 09/11/23 21:52 Dose: 40 mg Polyethylene Glycol (Polyethylene Glycol 3350 Pkt 17 Gm) 17 gm PO DAILY [facility] Last Admin: 09/12/23 09:23 Dose: Not Given Potassium Chloride (Potassium Chloride Er 20 Meq Tablet) 40 meq PO Q12H [facility] Last Admin: 09/12/23 09:22 Dose: 40 meq Senna/Docusate Sodium (Sennosides-Docusate Tablet) 2 tab PO DAILY [facility] Last Admin: 09/12/23 09:23 Dose: 2 tab Vitals/I&O/Wt Last Vital Signs Temp 98.9 F 09/12/23 15:45 Pulse 85 09/12/23 18:45 Resp 24 H 09/12/23 18:45 BP 110/72 09/12/23 18:45 Pulse Ox 95 09/12/23 18:45 O2 Del Method BiPAP 09/12/23 13:45 O2 Flow Rate 10 09/12/23 02:38 FiO2 50 09/12/23 17:17 09/12/23 09/12/23 09/12/23 06:59 14:59 22:59 Intake Total 274.563 / 697.188 243.375 / 243.375 120 / 363.375 Output Total 650 / 2000 700 / 700 Balance -375.437 / -1302.812 243.375 / 243.375 -580 / -336.625 Weight last 48 hrs Weight 134 lb 4 oz Weight 124 lb 4.8 oz Physical Exam 2 Narrative: GENERAL: The patient is alert and oriented times three. Not in any acute distress. HEENT: No significant pallor, icterus or lymphadenopathy.Oral cavity: There are no mucous membrane lesions. NECK: Trachea appears to be central. No masses noted. No JVD or thyromegaly appreciated. RESPIRATORY: Chest is symmetrical. No intercostals muscle retraction or any accessory muscle activation. There is no chest wall tenderness. Breath sounds are heard bilaterally. No rales or rhonchi heard. No evidence of any consolidation. BREASTS: Deferred. HEART: The heart sounds are normal. No S3 or S4. No significant murmurs. No pericardial rub ABDOMEN: No vessel pulsations or distention. No tenderness. No organomegaly appreciated. Bowel sounds are normally heard. : Deferred. RECTAL: Deferred. LYMPHATIC: No lymphadenopathy noted in the neck. EXTREMITIES: No edema or cyanosis. No clubbing. MUSCULOSKELETAL: No acute joint deformities or swelling SKIN: There are no significant rashes or ecchymosis NEUROPSYCHIATRIC: The patient is alert and oriented x3. Appears to be in a good mood. No tremors or rigidity noted. Urinary Catheter Management: Hooper: Cath Placed During This Visit: yes, but has since been removed by the nurse Reason for Continuing Indwelling Catheter: Accurate Measurement of Urinary Output in Critically Ill Patients Urinary Catheter Date of Insertion: 09/09/23 Urinary Catheter Time of Insertion: 19:03 Date Urinary Catheter Removed: 09/09/23 Time Urinary Catheter Discontinued: 19:02 Data 09/13/23 04:20 09/13/23 04:20 A&P Assessment and plan (1) Atrial fibrillation with RVR: Patient continues to be in sinus rhythm. Will continue on the current management. (2) CHF (congestive heart failure): May continue on the as needed Lasix. Qualifiers: Heart failure chronicity: chronic Heart failure type: unspecified Qualified Code(s): I50.9 - Heart failure, unspecified (3) Hypotension: The blood pressure seems to be staying in the upper 80s and low 90s today. Still staying off the dopamine. Qualifiers: Hypotension type: unspecified hypotension type Qualified Code(s): I95.9 - Hypotension, unspecified (4) ASHD (arteriosclerotic heart disease): Since her cardiac status seems to be stable, may continue on the current management. (5) Thrombocytopenia: Slowly seems to be improving. (6) Wall motion abnormality of inferior wall of left ventricle: May suggest underlying coronary disease. Patient is currently asymptomatic. Consider doing a Myocardial perfusion imaging, once her clinical status is more stable. (7) Bilateral pneumonia: Antibiotic treatment as per the primary. Clinically seems to be improving but still very hypoxic Qualifiers: Lung location: lower lobe of lung Pneumonia type: due to unspecified organism Qualified Code(s): J18.9 - Pneumonia, unspecified organism Plan In view of the patient's poor physical condition and hypoxia, it may be appropriate to hold off on any further cardiac intervention at this point Attestations 2 Medical Necessity Statement*: Deferred to the primary Coding Level of Care Code Acute Code for [facility] Diagnoses Atrial fibrillation with RVR I48.91 Acute on chronic congestive heart failure, unspecified heart failure type I50.9 Heart failure chronicity: chronic Heart failure type: unspecified Hypotension, unspecified hypotension type I95.9 Hypotension type: unspecified hypotension type ASHD (arteriosclerotic heart disease) I25.10 Thrombocytopenia D69.6 Wall motion abnormality of inferior wall of left ventricle R94.30 Pneumonia of both lower lobes due to infectious organism J18.9 Lung location: lower lobe of lung Pneumonia type: due to unspecified organism
[2023-09-12] MEDS: mirtazapine 30 mg Tablet PO (20:26)
[2023-09-12] MEDS: pantoprazole 40 mg SDV IVP (20:26)
[2023-09-12] MEDS: atorvastatin 40 mg Tablet 20 MG PO (20:26)
[2023-09-12 23:33] LABS: Glucose Point of Care 95 mg/dL (70-110)
[2023-09-13] VITALS (108 sets, daily range): BP systolic 76–144; BP diastolic 53–76; PULSE 77–99; RESP 9–41; TEMP 35.7–36.9; O2SAT 82–98; BMI 22.6
[2023-09-13] MEDS: magnesium lactate 84 mg Tablet PO ×2 (01:46→15:24)
[2023-09-13] MEDS: midodrine 5 mg TABLET 10 MG PO ×4 (01:46→21:00)
[2023-09-13] MEDS: ipratropium-albuterol 3 mL Neb INHALATION ×4 (02:57→19:59)
[2023-09-13 04:37] LABS: Basophils # 0.1 10^3/uL (0.0-0.1); Basophils % 0.7 %; Eosinophils # 0.3 10^3/uL (0.0-0.8); Hematocrit 22.8 % (36-47); Lymphocytes # 3.5 10^3/uL (0.8-4.8); Lymphocytes % 26.3 %; Mean Corpuscular HGB Conc 30.7 g/dL (30-55); Mean Corpuscular Hemoglobin 31.3 pg (27-33); Mean Corpuscular Volume 101.8 fl (85-98); Mean Platelet Volume 13.3 fL (7.4-10.4); Monocytes # 1.6 10^3/uL (0.2-0.9); Monocytes % 11.5 %; Neutrophils # 7.52 10^3/uL (1.8-7.7); Neutrophils % 55.8 %; Nucleated Red Blood Cells # 0.1 /100WBC; Nucleated Red Blood Cells % 0.4 %; Platelet Count 137 10^3/cmm (157-399); Red Blood Count 2.24 10^6/uL (3.85-5.65); Red Cell Distribution Width 14.7 % (12.1-15.1); White Blood Count 13.47 10^3/uL (3.29-11.43)
[2023-09-13 04:52] LABS: Alanine Aminotransferase 41 U/L (0-33); Alkaline Phosphatase 72 U/L (35-105); Anion Gap 23.1 (5-19); Aspartate Amino Transferase 67 U/L (0-32); Blood Urea Nitrogen 76 mg/dL (8-23); C Reactive Protein 13.8 mg/L (0.0-4.9); Calcium 10.9 mg/dL (8.5-10.5); Carbon Dioxide 30 mmol/L (22-29); Chloride 98 mmol/L (98-107); Creatinine Clr Calc Pharmacy 41.0636; Glomerular Filtration Rate 44.8 mL/min (90-130); Glucose 83 mg/dL (65-115); Magnesium 2.7 mg/dL (1.7-2.3); Osmolality Calculated 326 mOsm/kg (285-295); Phosphorus 5.6 mg/dL (2.5-4.5); Potassium 4.1 mmol/L (3.5-5.1); Sodium 147 mmol/L (136-145); Total Bilirubin 1.1 mg/dL (0.15-1.2); Total Protein 8.4 g/dL (6.6-8.7)
[2023-09-13] MEDS: piperacillin-tazobactam 3.375 GM in sodium chloride 0.9% (plus) 50 ML IV ×3 (04:53→20:54)
[2023-09-13] MEDS: FUROsemide 10 mg/mL SDV 4mL 40 MG IVP (04:53)
[2023-09-13 05:04] LABS: NT Pro B Type Natriuretic Pept 30248 pg/mL (0-125); Procalcitonin 0.49 ng/mL (0-0.5)
[2023-09-13 05:17] LABS: Albumin Level 7.7 g/dL (3.5-5.2); Globulin 0.7 g/dL (1.3-4.6)
[2023-09-13] MEDS: levothyroxine 125 mcg Tablet PO (05:22)
[2023-09-13] MEDS: folic acid 1 mg Tablet PO (05:22)
[2023-09-13] MEDS: acetaminophen 325 mg Tablet 650 MG PO (05:22)
[2023-09-13] MEDS: hydrocortisone 10 mg Tablet PO (05:22)
[2023-09-13 05:24] LABS: Glucose Point of Care 99 mg/dL (70-110)
[2023-09-13 06:45] LABS: Fibrinogen Degradation Product 5 mcg/mL (LESS THAN 5)
[2023-09-13] MEDS: sennosides-docusate Tablet 2 TAB PO (08:44)
[2023-09-13] MEDS: gabapentin 300 mg Capsule 900 MG PO (08:45)
[2023-09-13] MEDS: potassium chloride ER 20 mEq Tablet 40 MEQ PO ×2 (08:45→20:59)
[2023-09-13] MEDS: citalopram 20 mg Tablet PO (08:46)
[2023-09-13] MEDS: fludrocortisone 0.1 mg Tablet 0.100000000000000006 MG PO (08:46)
[2023-09-13] MEDS: calcium carbonate 500 mg Chew Tablet 1000 MG PO (08:46)
[2023-09-13] MEDS: albumin 25 G/100 ML BAG 60 G IV (08:46)
[2023-09-13] MEDS: calcitriol 0.25 mcg Capsule PO (10:19)
[2023-09-13] MEDS: dronabinol 2.5 mg Capsule PO ×2 (10:19→12:52)
--- NOTE | 2023-09-13 12:03 | PM.PN ---
Subjective Medications: Medication Review Details: Current Medications Acetaminophen (Acetaminophen 325 Mg Tablet) 650 mg PO Q6H PRN PRN Reason: Mild/Mod Pain Or Temp >/= 101 Last Admin: 09/13/23 05:22 Dose: 650 mg Albuterol/Ipratropium (Ipratropium-Albuterol 3 Ml Neb) 3 ml INHALATION Q6H PRN PRN Reason: SHORTNESS OF BREATH Albuterol/Ipratropium (Ipratropium-Albuterol 3 Ml Neb) 3 ml INHALATION Q6H.RESP [facility] Last Admin: 09/13/23 08:11 Dose: 3 ml Aspirin (Aspirin 81 Mg Ec Tablet) 81 mg PO DAILY [facility] Last Admin: 09/02/23 10:01 Dose: 81 mg Atorvastatin Calcium (Atorvastatin 40 Mg Tablet) 20 mg PO BEDTIME [facility] Last Admin: 09/12/23 20:26 Dose: 20 mg Calcitriol (Calcitriol 0.25 Mcg Capsule) 0.25 mcg PO MoWeFr [facility] Last Admin: 09/13/23 10:19 Dose: 0.25 mcg Calcium Carbonate (Calcium Carbonate 500 Mg Chew Tablet) 1,000 mg PO DAILY [facility] Last Admin: 09/13/23 08:46 Dose: 1,000 mg Citalopram Hydrobromide (Citalopram 20 Mg Tablet) 20 mg PO DAILY [facility] Last Admin: 09/13/23 08:46 Dose: 20 mg Clopidogrel Bisulfate (Clopidogrel 75 Mg Tablet) 75 mg PO DAILY [facility] Last Admin: 09/02/23 10:01 Dose: 75 mg Cyclobenzaprine HCl (Cyclobenzaprine 10 Mg Tablet) 5 mg PO TID PRN PRN Reason: MUSCLE SPASMS Last Admin: 09/11/23 05:26 Dose: 5 mg Fludrocortisone Acetate (Fludrocortisone 0.1 Mg Tablet) 0.1 mg PO DAILY [facility] Last Admin: 09/13/23 08:46 Dose: 0.1 mg Folic Acid (Folic Acid 1 Mg Tablet) 1 mg PO QAM [facility] Last Admin: 09/13/23 05:22 Dose: 1 mg Gabapentin (Gabapentin 300 Mg Capsule) 900 mg PO DAILY [facility] Last Admin: 09/13/23 08:45 Dose: 900 mg Gabapentin (Gabapentin 300 Mg Capsule) 600 mg PO QPM [facility] Last Admin: 09/12/23 16:59 Dose: 600 mg Hydrocortisone (Hydrocortisone 10 Mg Tablet) 10 mg PO QAM [facility] Last Admin: 09/13/23 05:22 Dose: 10 mg norepinephrine (Levophed) 4 mg in 250 mls @ 0 mls/hr IV .Q0M [facility]; Protocol Last Titration: 09/12/23 14:00 Dose: 0 mcg/min, 0 mls/hr fat emulsions 20% (Intralipid 20%) 100 mls @ 8.333 mls/hr IV Q24H [facility] Last Admin: 09/12/23 12:29 Dose: 8.33 mls/hr Dextrose (D5w) 500 mls @ 0 mls/hr IV ONCE PRN; Protocol PRN Reason: Adult Acute Hypoglycemia Prot Dextrose (D10w) 125 mls @ 750 mls/hr IV PRN PRN; Protocol PRN Reason: Adult Acute Hypoglycemia Nursing Protocol Dextrose (D10w) 250 mls @ 1,000 mls/hr IV PRN PRN; Protocol PRN Reason: Adult Acute Hypoglycemia Nursing Protocol Piperacillin Sod/Tazobactam (Sod 3.375 gm/ Sodium Chloride) 50 mls @ 12.5 mls/hr IV Q8H [facility] Last Infusion: 09/13/23 09:29 Dose: Infused Multivitamins 10 ml/ AA-Dex 4. (25%-5% w/Lytes) 1,010 mls @ 20 mls/hr IV .Q24H [facility] Last Admin: 09/12/23 09:17 Dose: 20 mls/hr Insulin Human Lispro (Insulin Lispro 100 Unit/1 Ml) 0 unit SUBCUT Q6H [facility]; Protocol Last Admin: 09/13/23 07:22 Dose: Not Given Lanolin (Lanolin Oint 7 Gm) 1 applic TOPICAL PRN PRN PRN Reason: DRYNESS Last Admin: 08/31/23 05:01 Dose: 1 applic Levothyroxine Sodium (Levothyroxine 125 Mcg Tablet) 125 mcg PO QAM [facility] Last Admin: 09/13/23 05:22 Dose: 125 mcg Lorazepam (Lorazepam 2 Mg/Ml Inj 10 Ml Mdv) 0.5 mg IVP Q4H PRN PRN Reason: ANXIETY Magnesium Lactate (Magnesium Lactate 84 Mg Tablet) 84 mg PO Q12H [facility] Last Admin: 09/13/23 01:46 Dose: 84 mg Metoclopramide HCl (Metoclopramide 5 Mg/Ml Sdv 2 Ml) 5 mg IVP Q6H PRN PRN Reason: NAUSEA AND VOMITING Last Admin: 09/01/23 17:39 Dose: 5 mg Midodrine (Midodrine 5 Mg Tablet) 10 mg PO Q6H [facility] Last Admin: 09/13/23 08:46 Dose: 10 mg Mirtazapine (Mirtazapine 30 Mg Tablet) 30 mg PO BEDTIME [facility] Last Admin: 09/12/23 20:26 Dose: 30 mg Nicotine (Nicotine 21 Mg Patch) 1 patch TRANSDERMA DAILY PRN PRN Reason: WITHDRAWAL Nicotine Polacrilex (Nicotine 4 Mg Lozenge) 4 mg MUCOUS MEM Q4H PRN PRN Reason: NICOTINE CRAVINGS Ondansetron HCl (Ondansetron 2 Mg/Ml Sdv 2 Ml) 4 mg IVP Q8H PRN PRN Reason: vomiting, or N/V if npo Last Admin: 09/01/23 09:57 Dose: 4 mg Pantoprazole Sodium (Pantoprazole 40 Mg Sdv) 40 mg IVP Q24H [facility] Last Admin: 09/12/23 20:26 Dose: 40 mg Polyethylene Glycol (Polyethylene Glycol 3350 Pkt 17 Gm) 17 gm PO DAILY [facility] Last Admin: 09/13/23 08:46 Dose: Not Given Potassium Chloride (Potassium Chloride Er 20 Meq Tablet) 40 meq PO Q12H [facility] Last Admin: 09/13/23 08:45 Dose: 40 meq Senna/Docusate Sodium (Sennosides-Docusate Tablet) 2 tab PO DAILY [facility] Last Admin: 09/13/23 08:44 Dose: 2 tab Vitals/I&O/Wt Last Vital Signs Temp 98.0 F 09/13/23 07:00 Pulse 91 09/13/23 11:15 Resp 18 09/13/23 11:15 BP 97/57 09/13/23 11:15 Pulse Ox 87 L 09/13/23 11:15 O2 Del Method High Flow Nasal Cannula 09/13/23 08:10 O2 Flow Rate 12 09/13/23 08:10 FiO2 55 09/13/23 06:00 09/12/23 09/13/23 09/13/23 22:59 06:59 14:59 Intake Total 270 / 513.375 150 / 663.375 578 / 578 Output Total 1150 / 1150 300 / 1450 Balance -880 / -636.625 -150 / -786.625 578 / 578 Weight last 48 hrs Weight 132 lb Weight 134 lb 4 oz Physical Exam Narrative: GENERAL: The patient is alert and oriented times three. Not in any acute distress. HEENT: No significant pallor, icterus or lymphadenopathy.Oral cavity: There are no mucous membrane lesions. NECK: Trachea appears to be central. No masses noted. No JVD or thyromegaly appreciated. RESPIRATORY: Chest is symmetrical. No intercostals muscle retraction or any accessory muscle activation. There is no chest wall tenderness. Breath sounds are heard bilaterally. No rales or rhonchi heard. No evidence of any consolidation. BREASTS: Deferred. HEART: The heart sounds are normal. No S3 or S4. No significant murmurs. No pericardial rub ABDOMEN: No vessel pulsations or distention. No tenderness. No organomegaly appreciated. Bowel sounds are normally heard. : Deferred. RECTAL: Deferred. LYMPHATIC: No lymphadenopathy noted in the neck. EXTREMITIES: No edema or cyanosis. No clubbing. MUSCULOSKELETAL: No acute joint deformities or swelling SKIN: There are no significant rashes or ecchymosis NEUROPSYCHIATRIC: The patient is alert and oriented x3. Appears to be in a good mood. No tremors or rigidity noted. Urinary Catheter Management: Hooper: Cath Placed During This Visit: yes, but has since been removed by the nurse Reason for Continuing Indwelling Catheter: Accurate Measurement of Urinary Output in Critically Ill Patients Urinary Catheter Date of Insertion: 09/09/23 Urinary Catheter Time of Insertion: 19:03 Date Urinary Catheter Removed: 09/09/23 Time Urinary Catheter Discontinued: 19:02 Data 09/13/23 04:20 09/13/23 04:20 Other Labs: Laboratory Last Values WBC 13.47 10^3/uL (3.29-11.43) H 09/13/23 04:20 RBC 2.24 10^6/uL (3.85-5.65) L 09/13/23 04:20 Hgb 7.00 g/dL (11.27-16.99) L 09/13/23 04:20 Hct 22.8 % (36-47) L 09/13/23 04:20 MCV 101.8 fl (85-98) H 09/13/23 04:20 MCH 31.3 pg (27-33) 09/13/23 04:20 MCHC 30.7 g/dL (30-55) 09/13/23 04:20 RDW 14.7 % (12.1-15.1) 09/13/23 04:20 Plt Count 137 10^3/cmm (157-399) L 09/13/23 04:20 MPV 13.3 fL (7.4-10.4) H 09/13/23 04:20 Neut % (Auto) 55.8 % 09/13/23 04:20 Lymph % (Auto) 26.3 % 09/13/23 04:20 Carver % (Auto) 11.5 % 09/13/23 04:20 Eos % (Auto) 2.0 % 09/13/23 04:20 Baso % (Auto) 0.7 % 09/13/23 04:20 Neut # (Auto) 7.52 10^3/uL (1.8-7.7) 09/13/23 04:20 Lymph # (Auto) 3.5 10^3/uL (0.8-4.8) 09/13/23 04:20 Carver # (Auto) 1.6 10^3/uL (0.2-0.9) H 09/13/23 04:20 Eos # (Auto) 0.3 10^3/uL (0.0-0.8) 09/13/23 04:20 Baso # (Auto) 0.1 10^3/uL (0.0-0.1) 09/13/23 04:20 Nucleated RBC % (auto) 0.4 % 09/13/23 04:20 Total Counted 100 (0-100) 09/07/23 21:05 Atypical Lymphs % 0.0 % (0-5) 09/07/23 21:05 Absolute Neutrophils 6.8 10^3/cmm (1.4-6.5) H 09/07/23 21:05 Segmented Neutrophils 72 % 09/07/23 21:05 Abs Segm Neuts (Man) 6.6 10/cmm (1.6-7.1) 09/07/23 21:05 Band Neutrophils 2.0 % 09/07/23 21:05 Abs Band Neuts (Man) 0.2 10^3/cmm (0.0-1.2) 09/07/23 21:05 Absolute Lymphocytes 1.9 10^3/cmm (1.2-3.4) 09/07/23 21:05 Lymphocytes (Manual) 21 % 09/07/23 21:05 Monocytes (Manual) 3.0 % 09/07/23 21:05 Absolute Monocytes 0.3 10^3/cmm (0.1-0.6) 09/07/23 21:05 Eosinophils (Manual) 1 % 09/07/23 21:05 Absolute Eosinophils 0.1 10^3/cmm (0.0-0.7) 09/07/23 21:05 Basophils (Manual) 1.0 % 09/07/23 21:05 Absolute Basophils 0.1 10^3/cmm (0.0-0.2) 09/07/23 21:05 Nucleated RBCs # 0.1 /100WBC 09/13/23 04:20 Platelet Estimate Decreased (Normal) L 09/07/23 21:05 Peripher Smr Path Cons Sent for review 09/03/23 15:14 ESR < 1 mm/hr (0-15) 08/26/23 03:30 Haptoglobin 76.0 mg/L (30-200) 09/03/23 04:40 PT 19.00 SECONDS (12.1-14.9) H 09/06/23 04:43 INR 1.54 (0.8-1.2) H 09/06/23 04:43 APTT 36.7 SECONDS (23.9-36.7) 09/03/23 15:14 Fibrinogen 163 mg/dL (174-498) L 09/03/23 15:14 Fibrin Degrad Products 5 mcg/mL (LESS THAN 5) H 09/03/23 15:20 D-Dimer 3.51 ug/mLFEU (0-0.59) H 09/03/23 15:14 Specimen Type Arterial 09/08/23 04:15 Sample Site Radial, right 09/08/23 04:15 ABG pH 7.56 (7.35-7.45) H 09/08/23 04:15 ABG pCO2 46.5 mmHg (35-45) H 09/08/23 04:15 ABG pO2 63.9 mmHg (80.0-100.0) L 09/08/23 04:15 ABG PO2/FiO2 Ratio 0 09/08/23 04:15 ABG HCO3 41.7 mmol/L (22-26) H 09/08/23 04:15 ABG O2 Saturation 89.2 09/01/23 14:53 ABG Base Excess 17.7 mmol/L (-2.0-2.0) H 09/08/23 04:15 Higinio Test Pos 09/08/23 04:15 VBG pH 7.35 (7.32-7.42) 08/25/23 21:27 VBG pCO2 42.1 mmHg (41-51) 08/25/23 21: VBG pO2 28.9 mmHg (25-40) 08/25/23 21: VBG HCO3 23.2 mmol/L (24-28) L 08/25/23 21: VBG Base Excess -2.4 mmol/L (-3.0-3.0) 08/25/23 21:27 VBG Hematocrit 39.4 % (37-47) 08/25/23 21:27 A-a O2 Gradient 42.3 mmHg (5-10) H 09/01/23 14:53 Hematocrit 27.9 % (37-47) L 09/08/23 04:15 Hgb O2 Saturation 87.8 % (95-100) L 09/01/23 14:53 Carboxyhemoglobin 1.1 %THgb (0.4-20.1) 09/01/23 14:53 Methemoglobin 0.5 % (0.4-1.5) 09/01/23 14:53 Total Hemoglobin 10.0 g/dL (12-16) L 09/01/23 14:53 Sodium 137.0 mmol/L (131-143) 09/01/23 14:53 Potassium 2.7 mmol/L (3.5-5.0) L 09/01/23 14:53 Glucose 138.0 mg/dL (70-115) H 09/01/23 14:53 Ionized Calcium 1.1 mmol/L (1.1-1.4) 09/01/23 14:53 O2 Delivery Device Bipap 09/08/23 04:15 O2 Liters/Min 12.0 % 09/07/23 04:26 FiO2 50.0 % 09/08/23 04:15 Housing Installer ID [email or web address] 09/08/23 04:15 Sodium 147 mmol/L (136-145) H 09/13/23 04:20 Potassium 4.1 mmol/L (3.5-5.1) 09/13/23 04:20 Chloride 98 mmol/L (98-107) 09/13/23 04:20 Carbon Dioxide 30 mmol/L (22-29) H 09/13/23 04:20 Anion Gap 23.1 (5-19) H 09/13/23 04:20 BUN 76 mg/dL (8-23) H 09/13/23 04:20 Creatinine 1.2 mg/dL (0.5-0.9) H 09/13/23 04:20 GFR Calculation 44.8 mL/min (90-130) L 09/13/23 04:20 Glucose 83 mg/dL (65-115) 09/13/23 04:20 POC Glucose 99 mg/dL (70-110) 09/13/23 05:15 Calculated Osmolality 326 mOsm/kg (285-295) H 09/13/23 04:20 Lactic Acid 0.8 mmol/L (0.5-2.2) 08/26/23 08:58 Lactic Acid (Sepsis) 1.7 mmol/L (0.5-2.2) 08/25/23 19:43 Lactate 1.6 mmol/L (0.5-2.2) 09/06/23 04:43 Calcium 10.9 mg/dL (8.5-10.5) H 09/13/23 04:20 Phosphorus 5.6 mg/dL (2.5-4.5) H 09/13/23 04:20 Magnesium 2.7 mg/dL (1.7-2.3) H 09/13/23 04:20 Iron 63 ug/dL (37-145) 09/03/23 04:40 Ferritin 560 ng/mL (15-150) H 09/03/23 04:40 Total Bilirubin 1.1 mg/dL (0.15-1.2) 09/13/23 04:20 Direct Bilirubin 1.00 mg/dL (0.00-0.30) H 09/02/23 03:20 Indirect Bilirubin 2.60 09/02/23 03:20 GGT 76 U/L (5-36) H 09/02/23 03:20 AST 67 U/L (0-32) H 09/13/23 04:20 ALT 41 U/L (0-33) H 09/13/23 04:20 Alkaline Phosphatase 72 U/L (35-105) 09/13/23 04:20 Lactate Dehydrogenase 447 U/L (135-214) H 09/03/23 04:40 Creatine Kinase 25 U/L (26-192) L 09/03/23 04:40 Troponin T Baseline 30 ng/L (0-10) H 08/27/23 09:22 Troponin T 120 Minute 38.12 ng/L (0-10) H 08/27/23 11:33 Delta Troponin T 8.12 ABS# (0-10) 08/27/23 11:33 Troponin T Hi Sens 6Hr 33.09 ng/L (0-10) H 08/27/23 15:22 Troponin T Hi Sens 6Hr Delta 3.09 ng/L (0-12) 08/27/23 15:22 C-Reactive Protein 13.8 mg/L (0.0-4.9) H 09/13/23 04:20 NT-Pro-B Natriuret Pep 85851 pg/mL (0-125) H 09/13/23 04:20 Total Protein 8.4 g/dL (6.6-8.7) 09/13/23 04:20 Albumin 7.7 g/dL (3.5-5.2) H 09/13/23 04:20 Globulin 0.7 g/dL (1.3-4.6) L 09/13/23 04:20 Lipase 5 U/L (13-60) L 09/02/23 03:20 Vitamin B12 530 pg/mL (232-1245) 08/26/23 07:00 Folate 17.2 ng/mL (4.8-37.3) 08/25/23 21:27 Procalcitonin 0.49 ng/mL (0-0.5) 09/13/23 04:20 TSH 5.33 uIU/mL (0.27-4.20) H 09/07/23 09:21 Free T4 1.72 ng/dL (0.82-1.77) 09/07/23 09:21 Free T3 1.1 PG/ML (2.0-4.4) L 09/07/23 09:21 Random Cortisol 8.44 ug/dL (2.47-19.5) 09/08/23 02:58 Urine Color Dark yellow (Yellow) 08/25/23 17:40 Urine Appearance Clear (CLEAR) 08/25/23 17:40 Urine pH 5 (5-7) 08/25/23 17:40 Ur Specific [place] 1.020 (1.005-1.030) 08/25/23 17:40 Urine Protein Trace (Negative) 08/25/23 17:40 Urine Glucose (UA) Norm (Normal) 08/25/23 17:40 Urine Ketones 1+ (Negative) H 08/25/23 17:40 Urine Blood Neg (Negative) 08/25/23 17:40 Urine Nitrate Negative (Negative) 08/25/23 17:40 Urine Bilirubin 2+ (Negative) H 08/25/23 17:40 Urine Urobilinogen 4+ mg/dL (Negative) H 08/25/23 17:40 Ur Leukocyte Esterase Negative (Negative) 08/25/23 17:40 Urine RBC None /hpf (0-2) 08/25/23 17:40 Urine WBC 0-4 /hpf (0-5) H 08/25/23 17:40 Ur Squamous Epith Cells None /hpf (0-5) 08/25/23 17:40 Amorphous Sediment Not Reportable 08/25/23 17:40 Urine Bacteria Trace /hpf (NONE) 08/25/23 17:40 Vancomycin Trough 29.9 ug/mL (10-15) H* 09/01/23 09:27 Digoxin 1.1 ng/mL (0.6-1.2) 09/03/23 04:40 Serum Ketones Negative (Negative) 08/25/23 21:27 IgA 629 mg/dL (70-320) H 08/25/23 21:27 BRENT Nuclear Membr Pat Nuclear, speckled A 08/26/23 08:58 BRENT IFA Animal Tis Ttr 1:40 titer H 08/26/23 08:58 BRENT IFA Animal Tis Res Positive (NEGATIVE) A 08/26/23 08: MINA-1 Antibody <1.0 neg AI (<1.0 NEG) 08/26/23 08:58 SS-A Antibody <1.0 neg AI (<1.0 NEG) 08/26/23 08:58 SS-B Antibody <1.0 neg AI (<1.0 NEG) 08/26/23 08:58 Sm (Arias) Antibody <1.0 neg AI (<1.0 NEG) 08/26/23 08:58 HAND PASTER Antibody <1.0 neg AI (<1.0 NEG) 08/26/23 08:58 Scl-70 Antibody <1.0 neg AI (<1.0 NEG) 08/26/23 08:58 Anti-ds DNA IgG (Crith) Negative (NEGATIVE) 08/26/23 08:58 Centromere B Antibody <1.0 neg AI (<1.0 NEG) 08/26/23 08:58 Tiss Transglutamin IgG <1.0 U/mL 08/25/23 21:27 Tiss Transglutamin IgA <1.0 U/mL 08/25/23 21:27 Thyroid Peroxidase Ab <1 IU/mL (<9) 08/26/23 08:58 Anti-Gliadin IgG JENNA Res 1.8 U/mL 08/25/23 21:27 Anti-Gliad IgA JENNA Res 2.3 U/mL 08/25/23 21:27 Complement C3c 62 mg/dL (83-193) L 08/26/23 08:58 Complement C4c 41 mg/dL (15-57) 08/26/23 08:58 CH50 Classical Pathway 27 U/mL (31-60) L 08/26/23 08:58 Adenovirus (PCR) Not detected (NOT DETECT) 08/26/23 15:00 C. pneumoniae DNA (PCR) Not detected (NOT DETECT) 08/26/23 15:00 C. difficile (PCR) Negative (Negative) 09/11/23 18:05 Coronavirus 229E (PCR) Not detected (NOT DETECT) 08/26/23 15:00 CMV Culture Source blood 08/26/23 08:58 CMV IgG Ab >10.00 U/mL H 08/25/23 21:27 CMV IgM Ab <30.00 AU/mL 08/25/23 21:27 CMV DNA Quant PCR Not detected IU/mL 08/26/23 08:58 CMV Qnt PCR Interp Not detected Log IU/mL 08/26/23 08:58 Hepatitis A IgM Ab Non-reactive (Nonreactive) 08/31/23 04:10 Hep Bs Antigen Non-reactive (Nonreactive) 08/31/23 04:10 Hep B Core IgM Ab Non-reactive (Nonreactive) 08/31/23 04:10 Hepatitis C Antibody Non-reactive (Nonreactive) 08/31/23 04:10 Human Metapneumovir PCR Not detected (NOT DETECT) 08/26/23 15:00 Influenza A (H1) PCR Not detected (NOT DETECT) 08/26/23 15:00 Influ A (H1/09) PCR Not detected (NOT DETECT) 08/26/23 15:00 Influenza A (H3) PCR Not detected (NOT DETECT) 08/26/23 15:00 Influenza Type A (PCR) Not detected (NOT DETECT) 08/26/23 15:00 Influenza Type B (PCR) Not detected (NOT DETECT) 08/26/23 15:00 M. pneumoniae (PCR) Not detected (NOT DETECT) 08/26/23 15:00 Parainfluenza 1 (PCR) Not detected (NOT DETECT) 08/26/23 15:00 Parainfluenza 2 (PCR) Not detected (NOT DETECT) 08/26/23 15:00 Parainfluenza 3 (PCR) Not detected (NOT DETECT) 08/26/23 15:00 Parainfluenza 4 (PCR) Not detected (NOT DETECT) 08/26/23 15:00 RSV Type A (PCR) Not detected (NOT DETECT) 08/26/23 15:00 RSV Type B (PCR) Not detected (NOT DETECT) 08/26/23 15:00 Entero/Rhino (PCR) Not detected (NOT DETECT) 08/26/23 15:00 SARS-CoV-2 (PCR) Not detected (NOT DETECT) 08/26/23 15:00 Blood Type B Positive 09/07/23 09:21 Rho(D) Type Rh positive 09/07/23 09:21 Antibody Screen Negative 09/07/23 09:21 Crossmatch See Detail 09/07/23 09:21 A&P Assessment and plan (1) Atrial fibrillation with RVR: Patient continues to be in sinus rhythm. Will continue on the current management. (2) CHF (congestive heart failure): Patient seems to be responding to the Lasix appropriately. She has a high BUN/creatinine ratio. Also has significant drop in the hemoglobin. Cannot exclude a GI bleed Qualifiers: Heart failure type: unspecified Heart failure chronicity: chronic Qualified Code(s): I50.9 - Heart failure, unspecified (3) Ischemic congestive cardiomyopathy: Because of the hypotension, GDMT is on hold (4) Hypotension: Blood pressure has been fluctuating. Today she is normotensive. Qualifiers: Hypotension type: unspecified hypotension type Qualified Code(s): I95.9 - Hypotension, unspecified (5) ASHD (arteriosclerotic heart disease): Because of the patient's recurrent CHF and LV dysfunction, we may consider doing a Myocardial perfusion imaging on Saturday, if she remains stable (6) Thrombocytopenia: Slowly seems to be improving. (7) Bilateral pneumonia: Antibiotic treatment as per the primary. Clinically seems to be improving but still very hypoxic Qualifiers: Pneumonia type: due to unspecified organism Lung location: lower lobe of lung Qualified Code(s): J18.9 - Pneumonia, unspecified organism (8) Acute anemia: Consider blood transfusion to keep the hemoglobin around 9 Plan Possible Myocardial perfusion imaging on Saturday. I discussed with the patient's daughter about her cardiovascular status and treatment options. The patient and her daughter is wanting to go ahead with the stress test to decide on the need for an angiogram. Discussed with Dr. Reece Attestations Medical Necessity Statement*: Disposition as per Dr. Paulino Coding Level of Care Code 12364 Diagnoses Atrial fibrillation with RVR I48.91 Acute on chronic congestive heart failure, unspecified heart failure type I50.9 Heart failure type: unspecified Heart failure chronicity: chronic Ischemic congestive cardiomyopathy I25.5; I42.0 Hypotension, unspecified hypotension type I95.9 Hypotension type: unspecified hypotension type ASHD (arteriosclerotic heart disease) I25.10 Thrombocytopenia D69.6 Pneumonia of both lower lobes due to infectious organism J18.9 Pneumonia type: due to unspecified organism Lung location: lower lobe of lung Acute anemia D64.9
[2023-09-13] MEDS: AA-Dex 4.25%-5% w/Lytes 1,000 ML with multivitamin inj 10 ML 20 ML IV (12:53)
[2023-09-13 13:23] LABS: Glucose Point of Care 106 mg/dL (70-110)
--- NOTE | 2023-09-13 15:19 | PC.SOCIAL ---
IMM Updated Updated pt on IMM. No questions voiced. Provided pt a copy. Initialed, dated, & timed copy in chart.
--- NOTE | 2023-09-13 15:59 | P.PN_ITS ---
Subjective 2 Subjective: Patient was seen this morning, multiple times, early in the morning she was seen, nursing staff at bedside, we readdressed her goals of care she wants to remain a full code she continues to want fight she tells me, she wants everything to be done, she is agreeable to potentially go to a long-term care facility such as [facility] in [place], she tells me she rested well overnight, currently on 10 L, we discussed trying her on an appetite stimulant, to stimulate her appetite, the plan for today is to encourage p.o. intake, she is agreeable, and to sit up in a chair, she remains off Levophed, I would hold diuresis for today, hemoglobin 7.0 will give her 1 unit PRBC, she is agreeable, she has no complaints except back pain, we discussed trying low-dose morphine, as even 1 mg of morphine and 5 of hydrocodone caused significant somnolence, but I want to get her back pain under control we will try a lower dose of morphine, she is agreeable, Will start her on Marinol Vitals/I&O/Wt Last Vital Signs Temp 96.3 F L 09/13/23 12:15 Pulse 91 09/13/23 14:10 Resp 20 H 09/13/23 14:00 BP 102/71 09/13/23 13:15 Pulse Ox 90 09/13/23 14:00 O2 Del Method High Flow Nasal Cannula 09/13/23 14:00 O2 Flow Rate 10 09/13/23 14:00 FiO2 55 09/13/23 06:00 09/13/23 09/13/23 09/13/23 06:59 14:59 22:59 Intake Total 250 / 107.878 2564 / 1130 Output Total 300 / 1450 200 / 200 Balance -50 / -686.625 930 / 930 Weight last 48 hrs Weight 59.874 kg Weight 60.895 kg Physical Exam 2 Const: COMMON NORMALS: no acute distress and patient oriented x3 EXAM LIMITATIONS: altered mental status GENERAL APPEARANCE: ill appearing and frail appearing NUTRITIONAL APPEARANCE: thin Resp: COMMON NORMALS: normal respiratory effort, No retractions and No use of accessory muscles AUSCULTATION: wheezes Cardio: COMMON NORMALS: regular rate, regular rhythm, S1 normal heart sound present and S2 normal heart sound present RATE: regular rate RHYTHM: r egular rhythm HEART SOUNDS: S1 normal heart sound present and S2 normal heart sound present GI: COMMON NORMALS: Normal to inspection, nondistended, normoactive bowel sounds present and non-tender Extremity: COMMON NORMALS: no pedal edema Neuro: COMMON NORMALS: patient oriented x3 Psych: COMMON NORMALS: mental status grossly normal Urinary Catheter Management: Hooper: Cath Placed During This Visit: yes, but has since been removed by the nurse Reason for Continuing Indwelling Catheter: Accurate Measurement of Urinary Output in Critically Ill Patients Urinary Catheter Date of Insertion: 09/09/23 Urinary Catheter Time of Insertion: 19:03 Date Urinary Catheter Removed: 09/09/23 Time Urinary Catheter Discontinued: 19:02 Data 09/13/23 04:20 09/13/23 04:20 A&P Assessment and plan (1) Hypotension: -Likely multifactorial - adrenal insufficiency,diureses -midodrine 10mg 3 times daily ? off Levophed ? hydrocortisone, fludrocortisone Qualifiers: Hypotension type: unspecified hypotension type Qualified Code(s): I95.9 - Hypotension, unspecified (2) Enterocolitis: Resolved CT/CT abdomen pelvis w con* [id number] IMPRESSION: New low-density wall thickening seen through much of the colon as well as portions of small bowel raising consideration of enterocolopathy of portal hypertension, enterocolitis (either infectious/inflammatory or ischemic) , or angioedema. Mild increase in ascites which remains small. Large gallstone again noted within gallbladder. Fatty liver. -Gallbladder ultrasound IMPRESSION: 1. Extremely difficult evaluation of the RIGHT upper quadrant due to body habitus. 2. Cholelithiasis without acute cholecystitis. No bile duct dilatation. 3. Cirrhotic liver with hepatic steatosis. (3) Hypokalemia: Replace hypokalemia. Has received some magnesium. Recheck magnesium level. (4) Hypomagnesemia: Received supplementation. Recheck level. (5) Adrenal insufficiency: as above. (6) Acquired hypothyroidism: TSH 5.33 (7) Wall motion abnormality of inferior wall of left ventricle: - History of severe coronary artery disease one-vessel disease, distal RCA treated with balloon and drug-eluting stent, back in 2019 Echocardiogram - Normal LV size with a slightly diminished ejection fraction of 50% (visual). Mild left-ventricular hypertrophy. Wall motion abnormalities as mentioned above Moderate mitral annular calcification. Normal RV size and ejection fraction There is no pericardial effusion. There are no intracardiac masses. Compared to the study from 06/27/2023, the wall motion abnormalities appear to be new Plan ? Serial EKGs, serial troponins, telemetry monitoring ? Aspirin, Plavix on hold -Given wall motion abnormalities, consulted cardiology -For now medical management (8) Acute hypoxic respiratory failure: -Acute hypoxic respiratory failure ? With development of acute respiratory distress syndrome -Secondary to fluid overload, pulmonary edema, systolic CHF -Now with concerns of aspiration pneumonia -BNP over 30,000, chest x-ray showing pulm vascular congestion, resolving - pneumonia, given leukocytosis elevated Pro-Reilly, CRP, resolved -Now with A-fib with RVR, back into normal sinus rhythm ? Chest x-ray shows improving pulmonary vascular congestion ? Plan -Currently off Levophed ? Currently on 10L, BiPAP as needed, scheduled during the night ? Fluid restrictions at 1000 cc, has diuresed over net 10 L negative ?Lasix currently on hold as creatinine is up to 1.2 -monitor creatinine monitor urine output monitor potassium ?monitor fluid status, monitor creatinine, -Continue fludrocortisone, ? Zosyn for aspiration pneumonia -Follow-up blood cultures - verapamil on hold -Continue to monitor respiratory status closely ? For anemia will give 1 unit PRBC -Full code -Eliquis for DVT prophylaxis on hold, SCDs for DVT prophylaxis -Status is stable, prognosis is guarded (9) Pulmonary edema: (10) Fluid overload: (11) CHF (congestive heart failure): Qualifiers: Heart failure type: unspecified Heart failure chronicity: chronic Qualified Code(s): I50.9 - Heart failure, unspecified (12) Acute respiratory distress syndrome: (13) Sepsis: (14) Shock: -Resolved -- Possibly septic shock, given pneumonia, multifactorial given adrenal insufficiency, diuresis ? Component of cardiogenic shock, given wall motion abnormalities on echocardiogram -component of adrenal insufficiency (15) Atrial fibrillation with RVR: (16) Digoxin toxicity: resolved, Digoxin levels over 3, digoxin was stopped amiodarone was stopped continue to monitor monitor potassium (17) Acute anemia: Status post 1 unit PRBC, will give 1 more unit of PRBC today (18) Thrombocytopenia: - Patient has anemia, thrombocytopenia -Hold aspirin, Plavix, Eliquis ? Hemolytic labs, ? Repeat CBC this evening (19) Hyperbilirubinemia: Liver ultrasound no acute findings, next ?we will monitor (20) Aspiration pneumonia: (21) Protein calorie malnutrition: (22) Physical deconditioning: - PT OT -Currently on peripheral nutrition, Plan CAD: Plavix if able to tolerate, asa CHF: as above A-fib: Normally on Eliquis , no hold CKD: GERD: PPI by IV at the moment. COPD: Not in exacerbation. Breathing treatments scheduled and as needed. History of HTN: This appears to be remote history, she is for the most part been having low blood pressures. Currently hypotensive. Smoking addiction: Encourage cessation. Nicotine replacement as needed. DM2: Accu-Cheks every 6 hours, insulin sliding scale. Guesses carb diet. Diabetic neuropathy: Hold off gabapentin for now due to hypotension. HLD: statin for now Patient was seen this morning, multiple times, early in the morning she was seen, nursing staff at bedside, we readdressed her goals of care she wants to remain a full code she continues to want fight she tells me, she wants everything to be done, she is agreeable to potentially go to a long-term care facility such as [facility] in [place], she tells me she rested well overnight, currently on 10 L, we discussed trying her on an appetite stimulant, to stimulate her appetite, the plan for today is to encourage p.o. intake, she is agreeable, and to sit up in a chair, she remains off Levophed, I would hold diuresis for today, hemoglobin 7.0 will give her 1 unit PRBC, she is agreeable, she has no complaints except back pain, we discussed trying low-dose morphine, as even 1 mg of morphine and 5 of hydrocodone caused significant somnolence, but I want to get her back pain under control we will try a lower dose of morphine, she is agreeable, Attestations 2 Medical Necessity Statement*: acute anemia, christina will watch her creatinine, respiratory failure on 10 L, acute fluid overload, 10 L negative hold off on diuresis for today Diagnoses Hypotension, unspecified hypotension type I95.9 Hypotension type: unspecified hypotension type Enterocolitis K52.9 Hypokalemia E87.6 Hypomagnesemia E83.42 Adrenal insufficiency E27.40 Acquired hypothyroidism E03.9 Wall motion abnormality of inferior wall of left ventricle R94.30 Acute hypoxic respiratory failure J96.01 Pulmonary edema J81.1 Fluid overload E87.70 Acute on chronic congestive heart failure, unspecified heart failure type I50.9 Heart failure type: unspecified Heart failure chronicity: chronic Acute respiratory distress syndrome J80 Sepsis A41.9 Shock R57.9 Atrial fibrillation with RVR I48.91 Digoxin toxicity T46.0X1A Acute anemia D64.9 Thrombocytopenia D69.6 Hyperbilirubinemia E80.6 Aspiration pneumonia J69.0 Protein calorie malnutrition E46 Physical deconditioning R53.81
[2023-09-13 16:46] LABS: Glucose Point of Care 113 mg/dL (70-110)
[2023-09-13 17:37] LABS: Basophils # 0.1 10^3/uL (0.0-0.1); Basophils % 0.8 %; Eosinophils # 0.3 10^3/uL (0.0-0.8); Eosinophils % 2.5 %; Hematocrit 24.5 % (36-47); Lymphocytes # 3.5 10^3/uL (0.8-4.8); Lymphocytes % 26.8 %; Mean Corpuscular HGB Conc 29.8 g/dL (30-55); Mean Corpuscular Hemoglobin 31.1 pg (27-33); Mean Corpuscular Volume 104.3 fl (85-98); Mean Platelet Volume 13.3 fL (7.4-10.4); Monocytes # 1.5 10^3/uL (0.2-0.9); Monocytes % 11.6 %; Neutrophils # 7.22 10^3/uL (1.8-7.7); Neutrophils % 55.8 %; Nucleated Red Blood Cells % 0.2 %; Platelet Count 156 10^3/cmm (157-399); Red Blood Count 2.35 10^6/uL (3.85-5.65); Red Cell Distribution Width 15.4 % (12.1-15.1); White Blood Count 12.97 10^3/uL (3.29-11.43)
--- NOTE | 2023-09-13 18:06 | PC.NURSE ---
At 1745, patient was observed to have a decreased mental status. Earlier she was awake, mostly alert, able to answer all orientation questions. Rapid delcine within the last 30 minutes. Now unable to answer any orientation questions and can't stay awake for more than a few seconds at a time. Nurse placed back on Bipap and alerted Dr stephens. No new orders received continuing to monitor.
--- NOTE | 2023-09-13 18:16 | PC.NURSE ---
Shift SUmmary: Patient rested in bed for most of the day. Was up to a chair for about 1 hour before getting back to bed. total urine output was 325mL. Alert and oriented to person, plac,e time, and situation for most of the day. At approximately 1745 today, patient's mental status sharply declined. Placed back on bipap. Was off of bipap throughout the day. (See previous nurse note).
[2023-09-13] MEDS: pantoprazole 40 mg SDV IVP (20:57)
[2023-09-13] MEDS: atorvastatin 40 mg Tablet 20 MG PO (20:59)
[2023-09-13] MEDS: mirtazapine 30 mg Tablet PO (21:00)
[2023-09-14] VITALS (71 sets, daily range): BP systolic 81–117; BP diastolic 47–87; PULSE 72–106; RESP 1–31; TEMP 36.1–36.6; O2SAT 62–100
[2023-09-14 00:19] LABS: Glucose Point of Care 105 mg/dL (70-110)
[2023-09-14] MEDS: ipratropium-albuterol 3 mL Neb INHALATION ×2 (01:41→08:34)
[2023-09-14] MEDS: magnesium lactate 84 mg Tablet PO (02:22)
[2023-09-14] MEDS: midodrine 5 mg TABLET 10 MG PO ×2 (02:22→08:18)
[2023-09-14 05:25] LABS: Basophils # 0.2 10^3/uL (0.0-0.1); Basophils % 1.6 %; Eosinophils # 0.4 10^3/uL (0.0-0.8); Eosinophils % 2.9 %; Hematocrit 29.1 % (36-47); Lymphocytes % 24.3 %; Mean Corpuscular HGB Conc 31.3 g/dL (30-55); Mean Corpuscular Hemoglobin 30.6 pg (27-33); Mean Platelet Volume 13.4 fL (7.4-10.4); Monocytes # 1.4 10^3/uL (0.2-0.9); Monocytes % 11.8 %; Neutrophils # 6.95 10^3/uL (1.8-7.7); Neutrophils % 57.2 %; Nucleated Red Blood Cells % 0.2 %; Platelet Count 152 10^3/cmm (157-399); Red Blood Count 2.97 10^6/uL (3.85-5.65); White Blood Count 12.16 10^3/uL (3.29-11.43)
[2023-09-14] MEDS: hydrocortisone 10 mg Tablet 5 MG PO (05:35)
[2023-09-14] MEDS: folic acid 1 mg Tablet PO (05:35)
[2023-09-14 05:36] LABS: Glucose Point of Care 94 mg/dL (70-110)
[2023-09-14] MEDS: cyclobenzaprine 10 mg Tablet 5 MG PO (05:36)
[2023-09-14] MEDS: piperacillin-tazobactam 3.375 GM in sodium chloride 0.9% (plus) 50 ML IV (05:36)
[2023-09-14] MEDS: levothyroxine 125 mcg Tablet PO (05:36)
[2023-09-14 05:41] LABS: NT Pro B Type Natriuretic Pept 25485 pg/mL (0-125)
[2023-09-14 05:42] LABS: Alanine Aminotransferase 39 U/L (0-33); Albumin Level 5.9 g/dL (3.5-5.2); Alkaline Phosphatase 75 U/L (35-105); Aspartate Amino Transferase 53 U/L (0-32); C Reactive Protein 9.8 mg/L (0.0-4.9); Calcium 10.3 mg/dL (8.5-10.5); Carbon Dioxide 29 mmol/L (22-29); Chloride 103 mmol/L (98-107); Creatinine Clr Calc Pharmacy 40.7703; Glomerular Filtration Rate 44.8 mL/min (90-130); Glucose 88 mg/dL (65-115); Magnesium 2.8 mg/dL (1.7-2.3); Osmolality Calculated 333 mOsm/kg (285-295); Phosphorus 5.1 mg/dL (2.5-4.5); Sodium 149 mmol/L (136-145); Total Bilirubin 1.5 mg/dL (0.15-1.2); Total Protein 7.9 g/dL (6.6-8.7)
[2023-09-14 05:47] LABS: Blood Urea Nitrogen 83 mg/dL (8-23)
--- NOTE | 2023-09-14 07:51 | PM.PN ---
Subjective Subjective: Patient says she is doing better. However does not want any further medical procedures. She says wants to go home. Vitals/I&O/Wt Last Vital Signs Temp 97.3 F L 09/14/23 06:00 Pulse 87 09/14/23 06:00 Resp 16 09/14/23 06:00 BP 98/58 09/14/23 06:00 Pulse Ox 96 09/14/23 06:00 O2 Del Method High Flow Nasal Cannula 09/14/23 06:00 O2 Flow Rate 10 09/14/23 06:00 FiO2 55 09/13/23 19:59 09/13/23 09/14/23 09/14/23 22:59 06:59 14:59 Intake Total 425 / 1555 400 / 1955 Output Total 475 / 675 Balance -50 / 880 400 / 1280 Weight last 48 hrs Weight 132 lb Weight 132 lb Physical Exam Narrative: GENERAL: Patient is alert. NECK: No jugular vein distension. [] HEENT: No cyanosis. No icterus. No pallor. [] HEART: Regular S1 and S2. No murmur, rub or gallop. [] LUNGS: Bilateral crackles. CENTRAL NERVOUS SYSTEM: Grossly nonfocal. [] EXTREMITIES: Lower extremities with 1+ edema bilaterally Urinary Catheter Management: Hooper: Cath Placed During This Visit: yes, but has since been removed by the nurse Reason for Continuing Indwelling Catheter: Accurate Measurement of Urinary Output in Critically Ill Patients Urinary Catheter Date of Insertion: 09/09/23 Urinary Catheter Time of Insertion: 19:03 Date Urinary Catheter Removed: 09/09/23 Time Urinary Catheter Discontinued: 19:02 Data 09/14/23 04:36 09/14/23 04:36 A&P Assessment and plan (1) Atrial fibrillation with RVR: (2) CHF (congestive heart failure): Qualifiers: Heart failure type: unspecified Heart failure chronicity: chronic Qualified Code(s): I50.9 - Heart failure, unspecified (3) Ischemic congestive cardiomyopathy: (4) Hypotension: Qualifiers: Hypotension type: unspecified hypotension type Qualified Code(s): I95.9 - Hypotension, unspecified (5) ASHD (arteriosclerotic heart disease): (6) Thrombocytopenia: (7) Bilateral pneumonia: Qualifiers: Pneumonia type: due to unspecified organism Lung location: lower lobe of lung Qualified Code(s): J18.9 - Pneumonia, unspecified organism (8) Acute anemia: Plan Patient does not want further medical procedures. Currently stable from cardiac standpoint. Medicine team will discuss if she wants to proceed with hospice. Heart rate is controlled. Please call with questions. Attestations Medical Necessity Statement*: Care expected to cross 2 midnights. Coding Level of Care Code Acute Code for [facility] Fwd Diagnoses Atrial fibrillation with RVR I48.91 Acute on chronic congestive heart failure, unspecified heart failure type I50.9 Heart failure type: unspecified Heart failure chronicity: chronic Ischemic congestive cardiomyopathy I25.5; I42.0 Hypotension, unspecified hypotension type I95.9 Hypotension type: unspecified hypotension type ASHD (arteriosclerotic heart disease) I25.10 Thrombocytopenia D69.6 Pneumonia of both lower lobes due to infectious organism J18.9 Pneumonia type: due to unspecified organism Lung location: lower lobe of lung Acute anemia D64.9
[2023-09-14] MEDS: multivitamin therapeutic Tablet 1 TAB PO (08:16)
[2023-09-14] MEDS: citalopram 20 mg Tablet PO (08:16)
[2023-09-14] MEDS: gabapentin 300 mg Capsule 900 MG PO (08:17)
[2023-09-14] MEDS: potassium chloride ER 20 mEq Tablet 40 MEQ PO (08:19)
[2023-09-14] MEDS: calcium carbonate 500 mg Chew Tablet 1000 MG PO (08:20)
[2023-09-14] MEDS: fludrocortisone 0.1 mg Tablet 0.100000000000000006 MG PO (08:20)
--- NOTE | 2023-09-14 08:42 | PC.NURSE ---
Patient consumed a Nestle Breeze 250 kcal drink thickened, with morning meds. Patient consumed all 240ml.
--- NOTE | 2023-09-14 10:03 | PC.NURSE ---
Patient complaining of shortness of breath. RT notified of sats in the mid to lower 80s. RT responded by placing on bipap. Patient stayed on bipap for approximately 15 minutes and then pulled it off, complaining it was giving her too much air . Patient placed back on nasal cannula. Patient not sating in the low 90s, Patient also educated on breathing in through her nose and out through her mouth.
--- NOTE | 2023-09-14 11:24 | PC.NURSE ---
Patient's asked nurse to call daughter, Evelia and tell her she wants to come home to . Daughter called and given update abuot how much she ate this morning and her oxygen requirements. Daughter states that she would be in after work today to visit with patient.
--- NOTE | 2023-09-14 12:08 | P.PN_ITS ---
Subjective 2 Subjective: Patient was seen this morning, she is much more alert and awake this morning, sitting up in bed, she is having breakfast this morning she tells me that her appetite is slowly improving, but she does not like the food that she has been given, she remains off Levophed, is on 10 L, is on 20 of peripheral nutrition, weaning peripheral nutrition down, she does report back pain, Vitals/I&O/Wt Last Vital Signs Temp 97.9 F 09/14/23 08:15 Pulse 105 H 09/14/23 11:36 Resp 19 H 09/14/23 10:00 BP 110/76 09/14/23 10:00 Pulse Ox 93 09/14/23 11:36 O2 Del Method High Flow Nasal Cannula 09/14/23 08:34 O2 Flow Rate 10 09/14/23 08:34 FiO2 55 09/14/23 11:36 09/13/23 09/14/23 09/14/23 22:59 06:59 14:59 Intake Total 425 / 1555 400 / 1955 1172.333 / 1172.333 Output Total 475 / 675 Balance -50 / 880 400 / 1280 1172.333 / 1172.333 Weight last 48 hrs Weight 59.874 kg Weight 59.874 kg Physical Exam 2 Const: COMMON NORMALS: no acute distress and patient oriented x3 GENERAL APPEARANCE: ill appearing and frail appearing NUTRITIONAL APPEARANCE: thin Resp: COMMON NORMALS: normal respiratory effort, No retractions, No use of accessory muscles and clear to auscultation bilaterally AUSCULTATION: clear to auscultation bilaterally Cardio: COMMON NORMALS: regular rate, regular rhythm, S1 normal heart sound present and S2 normal heart sound present RATE: regular rate RHYTHM: r egular rhythm HEART SOUNDS: S1 normal heart sound present and S2 normal heart sound present GI: COMMON NORMALS: Normal to inspection, nondistended, normoactive bowel sounds present and non-tender Extremity: COMMON NORMALS: no pedal edema Neuro: COMMON NORMALS: patient oriented x3 Psych: COMMON NORMALS: mental status grossly normal Urinary Catheter Management: Hooper: Cath Placed During This Visit: yes, but has since been removed by the nurse Reason for Continuing Indwelling Catheter: Accurate Measurement of Urinary Output in Critically Ill Patients Urinary Catheter Date of Insertion: 09/09/23 Urinary Catheter Time of Insertion: 19:03 Date Urinary Catheter Removed: 09/09/23 Time Urinary Catheter Discontinued: 19:02 Data 09/14/23 04:36 09/14/23 04:36 A&P Assessment and plan (1) Hypotension: -Likely multifactorial - adrenal insufficiency,diureses -midodrine 10mg 3 times daily ? off Levophed ? hydrocortisone, fludrocortisone Qualifiers: Hypotension type: unspecified hypotension type Qualified Code(s): I95.9 - Hypotension, unspecified (2) Enterocolitis: Resolved CT/CT abdomen pelvis w con* [id number] IMPRESSION: New low-density wall thickening seen through much of the colon as well as portions of small bowel raising consideration of enterocolopathy of portal hypertension, enterocolitis (either infectious/inflammatory or ischemic) , or angioedema. Mild increase in ascites which remains small. Large gallstone again noted within gallbladder. Fatty liver. -Gallbladder ultrasound IMPRESSION: 1. Extremely difficult evaluation of the RIGHT upper quadrant due to body habitus. 2. Cholelithiasis without acute cholecystitis. No bile duct dilatation. 3. Cirrhotic liver with hepatic steatosis. (3) Hypokalemia: Replace hypokalemia. Has received some magnesium. Recheck magnesium level. (4) Hypomagnesemia: Received supplementation. Recheck level. (5) Adrenal insufficiency: as above. (6) Acquired hypothyroidism: TSH 5.33 (7) Wall motion abnormality of inferior wall of left ventricle: - History of severe coronary artery disease one-vessel disease, distal RCA treated with balloon and drug-eluting stent, back in 2019 Echocardiogram - Normal LV size with a slightly diminished ejection fraction of 50% (visual). Mild left-ventricular hypertrophy. Wall motion abnormalities as mentioned above Moderate mitral annular calcification. Normal RV size and ejection fraction There is no pericardial effusion. There are no intracardiac masses. Compared to the study from 06/27/2023, the wall motion abnormalities appear to be new Plan ? Serial EKGs, serial troponins, telemetry monitoring ? Aspirin, Plavix on hold -Given wall motion abnormalities, consulted cardiology -For now medical management (8) Acute hypoxic respiratory failure: -Acute hypoxic respiratory failure ? With development of acute respiratory distress syndrome -Secondary to fluid overload, pulmonary edema, systolic CHF -Now with concerns of aspiration pneumonia -BNP over 30,000, chest x-ray showing pulm vascular congestion, resolving - pneumonia, given leukocytosis elevated Pro-Reilly, CRP, resolved -Now with A-fib with RVR, back into normal sinus rhythm ? Chest x-ray shows improving pulmonary vascular congestion ? Plan -Currently off Levophed ? Currently on 10L, BiPAP as needed, scheduled during the night ? Fluid restrictions at 1000 cc, has diuresed over net 10 L negative ?Lasix currently on hold as creatinine is up to 1.2 -monitor creatinine monitor urine output monitor potassium ?monitor fluid status, monitor creatinine, -Continue fludrocortisone, ? Zosyn for aspiration pneumonia -Follow-up blood cultures - verapamil on hold -Continue to monitor respiratory status closely ? For anemia will give 1 unit PRBC -Full code -Eliquis for DVT prophylaxis on hold, SCDs for DVT prophylaxis -Status is stable, prognosis is guarded (9) Pulmonary edema: (10) Fluid overload: (11) CHF (congestive heart failure): Qualifiers: Heart failure type: unspecified Heart failure chronicity: chronic Qualified Code(s): I50.9 - Heart failure, unspecified (12) Acute respiratory distress syndrome: (13) Sepsis: (14) Shock: -Resolved -- Possibly septic shock, given pneumonia, multifactorial given adrenal insufficiency, diuresis ? Component of cardiogenic shock, given wall motion abnormalities on echocardiogram -component of adrenal insufficiency (15) Atrial fibrillation with RVR: (16) Digoxin toxicity: resolved, Digoxin levels over 3, digoxin was stopped amiodarone was stopped continue to monitor monitor potassium (17) Acute anemia: Status post 1 unit PRBC, will give 1 more unit of PRBC today (18) Thrombocytopenia: - Patient has anemia, thrombocytopenia -Hold aspirin, Plavix, Eliquis ? Hemolytic labs, ? Repeat CBC this evening (19) Hyperbilirubinemia: Liver ultrasound no acute findings, next ?we will monitor (20) Aspiration pneumonia: (21) Protein calorie malnutrition: (22) Physical deconditioning: - PT OT -Currently on peripheral nutrition, Plan CAD: Plavix if able to tolerate, asa CHF: as above A-fib: Normally on Eliquis , no hold CKD: GERD: PPI by IV at the moment. COPD: Not in exacerbation. Breathing treatments scheduled and as needed. History of HTN: This appears to be remote history, she is for the most part been having low blood pressures. Currently hypotensive. Smoking addiction: Encourage cessation. Nicotine replacement as needed. DM2: Accu-Cheks every 6 hours, insulin sliding scale. Guesses carb diet. Diabetic neuropathy: Hold off gabapentin for now due to hypotension. HLD: statin for now Plan for today up out of bed, advance diet as tolerated, wean off peripheral nutrition, status post 1 unit PRBC, stop Zosyn and switch to Augmentin, monitor respiratory status closely Attestations 2 Medical Necessity Statement*: Patient requires hospitalization for acute respiratory failure secondary to fluid overload, aspiration pneumonia Diagnoses Hypotension, unspecified hypotension type I95.9 Hypotension type: unspecified hypotension type Enterocolitis K52.9 Hypokalemia E87.6 Hypomagnesemia E83.42 Adrenal insufficiency E27.40 Acquired hypothyroidism E03.9 Wall motion abnormality of inferior wall of left ventricle R94.30 Acute hypoxic respiratory failure J96.01 Pulmonary edema J81.1 Fluid overload E87.70 Acute on chronic congestive heart failure, unspecified heart failure type I50.9 Heart failure type: unspecified Heart failure chronicity: chronic Acute respiratory distress syndrome J80 Sepsis A41.9 Shock R57.9 Atrial fibrillation with RVR I48.91 Digoxin toxicity T46.0X1A Acute anemia D64.9 Thrombocytopenia D69.6 Hyperbilirubinemia E80.6 Aspiration pneumonia J69.0 Protein calorie malnutrition E46 Physical deconditioning R53.81
--- NOTE | 2023-09-14 13:03 | PM.CCNAC ---
Critical Care Event Note The high probability of a clinically significant, sudden or life threatening deterioration of the patient's [] system(s) required my full and direct attention, intervention and personal management. The critical care time is as shown. This time is in addition to time spent performing any reported procedures but includes the following: [x] Data and vital sign review and interpretation [x] Patient assessment, examination and intervention [x] Documentation [x] Medication orders and management Critical Care Time Code activated: No Critical Care Time (min): 45 Additional information about critical care time: Patient was seen this afternoon ? Patient's daughter is at bedside, ? Nursing staff are at bedside, ? Patient tells me and daughter that she wants to stop all medical interventions, she does not want the BiPAP on and she does not want even oxygen on, she is ready to , ? She understands that without oxygen without BiPAP she will likely , she understands, she tells me that she is ready ? She tells me she does not want to suffer anymore, she is hurting all over she wants morphine for her pain and she wants to pass away comfortably ? Patient tells me that it is her wish to go home and pass away, however currently she is on 10 L, I advised her that in order for her to to be set up for hospice at home, we can certainly do this, if she is here till Saturday, but I cannot do this today as she is going to need potentially oxygen arranged for her transport home, and she is on a high amount she is between 10 to 12 L, as she has a risk of morbidity and mortality passing away in the back of her car or in the back of an ambulance, in addition it is difficult for me to set up hospice right now, given that we do not have case management here today, and then will be back till Saturday, we can certainly arrange for it on Saturday ? I discussed with Peri in detail what comfort care entails here in the hospital that involves stopping all medical interventions, easing her pain easing her suffering and allowing her to pass with comfortably, Peri voices that she understands that she will here in the hospital on comfort care, she tells me she is ready to , she just wants to be comfortable she wants oxygen off of her she wants morphine for pain and she wants all medical interventions to be stopped ? Her daughter at bedside confirms that this is what Peri has been saying this afternoon, ? I discussed with her burn daughter that Peri has changed her mind going from comfort care to continuing medical interventions throughout the later part of her hospitalization, when we had a family meeting on Saturday, she would go back and forth between comfort care and continuing medical interventions, when asked her on , she tells me that she wanted to continue to fight, ? I want Peri to understand that comfort care means that we stop all medical interventions, and as per her wish we stop oxygen and allow her to pass away with dignity and this will likely happen here in the hospital, we would not resuscitate her, we would not put her on a ventilator we would allow her to pass away with dignity ? The other option would be continuing medical interventions, and placing her to a facility such as [facility], for long-term care given her acute hypoxic respiratory failure acute respiratory distress syndrome, her CHF, her pneumonia, her physically deconditioned state, her frailty ? I let this information sink in with her and her daughter, and I gave them roughly about an hour of private time to make up their decision ? I went back and spoke to her about her daughter, nursing staff again at bedside, ? Peri tells me that she is ready to she wants to be comfortable, she wants us to ease her pain and ease her suffering and she wants to pass away comfortably she wants all medical interventions to be stopped she also tells me that she does not want this oxygen in her nose anymore it bothers her, she wants morphine for pain she tells me that she is hurting all over and she is tired of fighting, she tells me that she is 67, and she is ready ? I did detailed discussion with patient regarding and her daughter and nursing staff at bedside about comfort care, easing her pain and ease her suffering allowing her to pass with comfortably, discussed risk and benefits, morbidity mortality discussed, patient and daughter voiced understanding, all questions answered, Peri agreed to proceed with comfort care ? Patient's daughter has called and family members, they are coming only from [place], ? Will start comfort care order process, move her upstairs Coding Level of Care Code Acute Code for Chg Fwd
[2023-09-14] MEDS: morphine 4 mg/mL SDV 1 mL 1 MG IVP ×3 (13:15→17:49)
--- NOTE | 2023-09-14 15:42 | PC.NURSE ---
Family declines for nursing to turn pt at this time.
[2023-09-14 17:20] LABS: Glucose Point of Care 170 mg/dL (70-110)
[2023-09-14] MEDS: LORazepam 2 mg/mL INJ 10 mL MDV IVP (18:05)
[2023-09-15] VITALS (8 sets, daily range): BP systolic 81–92; BP diastolic 42–56; PULSE 82–90; RESP 10–16; TEMP 36.5–36.6; O2SAT 57–83
[2023-09-15] MEDS: morphine 4 mg/mL SDV 1 mL 1 MG IVP ×6 (00:58→21:51)
[2023-09-15] MEDS: LORazepam 2 mg/mL INJ 10 mL MDV IVP (09:44)
--- NOTE | 2023-09-15 13:51 | P.PN_ITS ---
Subjective 2 Subjective: Patient was seen this morning, daughter at bedside she is alert to person, not to place, to time, he is resting, is tachypneic, shallow breathing Vitals/I&O/Wt Last Vital Signs Temp 97.7 F 09/15/23 07:33 Pulse 87 09/15/23 07:33 Resp 12 09/15/23 07:33 BP 92/56 09/15/23 07:33 Pulse Ox 83 L 09/15/23 07:33 O2 Del Method Nasal Cannula 09/15/23 07:33 O2 Flow Rate 2 09/15/23 08:00 FiO2 55 09/14/23 11:36 09/14/23 09/15/23 09/15/23 22:59 06:59 14:59 Intake Total 1105 / 2277.333 Output Total 425 / 425 Balance 1105 / 2277.333 -425 / 1852.333 Weight last 48 hrs Weight 60.838 kg Weight 59.874 kg Physical Exam 2 Const: EXAM LIMITATIONS: altered mental status ORIENTATION/CONSCIOUSNESS: Y es awake, Yes oriented to person and Yes confused; not oriented to place and not oriented to time Resp: COMMON NORMALS: normal respiratory effort, No retractions and No use of accessory muscles EFFORT & INSPECTION: Yes tachypneic AUSCULTATION: c rackles and wheezes Cardio: COMMON NORMALS: regular rate, regular rhythm, S1 normal heart sound present and S2 normal heart sound present RATE: regular rate RHYTHM: r egular rhythm HEART SOUNDS: S1 normal heart sound present and S2 normal heart sound present GI: COMMON NORMALS: Normal to inspection, nondistended, normoactive bowel sounds present and non-tender Extremity: COMMON NORMALS: no pedal edema Neuro: SENSORIUM/ORIENTATION: Yes oriented to person, No oriented to place and No oriented to time Urinary Catheter Management: Hooper: Cath Placed During This Visit: yes, but has since been removed by the nurse Reason for Continuing Indwelling Catheter: Hospice/Comfort/Palliative Care Urinary Catheter Date of Insertion: 09/09/23 Urinary Catheter Time of Insertion: 19:03 Date Urinary Catheter Removed: 09/09/23 Time Urinary Catheter Discontinued: 19:02 Data 09/14/23 04:36 09/14/23 04:36 A&P Assessment and plan (1) Hypotension: -Likely multifactorial - adrenal insufficiency,diureses -midodrine 10mg 3 times daily ? off Levophed ? hydrocortisone, fludrocortisone Qualifiers: Hypotension type: unspecified hypotension type Qualified Code(s): I95.9 - Hypotension, unspecified (2) Enterocolitis: Resolved CT/CT abdomen pelvis w con* [id number] IMPRESSION: New low-density wall thickening seen through much of the colon as well as portions of small bowel raising consideration of enterocolopathy of portal hypertension, enterocolitis (either infectious/inflammatory or ischemic) , or angioedema. Mild increase in ascites which remains small. Large gallstone again noted within gallbladder. Fatty liver. -Gallbladder ultrasound IMPRESSION: 1. Extremely difficult evaluation of the RIGHT upper quadrant due to body habitus. 2. Cholelithiasis without acute cholecystitis. No bile duct dilatation. 3. Cirrhotic liver with hepatic steatosis. (3) Hypokalemia: Replace hypokalemia. Has received some magnesium. Recheck magnesium level. (4) Hypomagnesemia: Received supplementation. Recheck level. (5) Adrenal insufficiency: as above. (6) Acquired hypothyroidism: TSH 5.33 (7) Wall motion abnormality of inferior wall of left ventricle: - History of severe coronary artery disease one-vessel disease, distal RCA treated with balloon and drug-eluting stent, back in 2019 Echocardiogram - Normal LV size with a slightly diminished ejection fraction of 50% (visual). Mild left-ventricular hypertrophy. Wall motion abnormalities as mentioned above Moderate mitral annular calcification. Normal RV size and ejection fraction There is no pericardial effusion. There are no intracardiac masses. Compared to the study from 06/27/2023, the wall motion abnormalities appear to be new Plan ? Serial EKGs, serial troponins, telemetry monitoring ? Aspirin, Plavix on hold -Given wall motion abnormalities, consulted cardiology -For now medical management (8) Acute hypoxic respiratory failure: -Acute hypoxic respiratory failure ? With development of acute respiratory distress syndrome -Secondary to fluid overload, pulmonary edema, systolic CHF -Now with concerns of aspiration pneumonia -BNP over 30,000, chest x-ray showing pulm vascular congestion, resolving - pneumonia, given leukocytosis elevated Pro-Reilly, CRP, resolved -Now with A-fib with RVR, back into normal sinus rhythm ? Chest x-ray shows improving pulmonary vascular congestion ? Plan -Currently off Levophed ? Currently on 10L, BiPAP as needed, scheduled during the night ? Fluid restrictions at 1000 cc, has diuresed over net 10 L negative ?Lasix currently on hold as creatinine is up to 1.2 -monitor creatinine monitor urine output monitor potassium ?monitor fluid status, monitor creatinine, -Continue fludrocortisone, ? Zosyn for aspiration pneumonia -Follow-up blood cultures - verapamil on hold -Continue to monitor respiratory status closely ? For anemia will give 1 unit PRBC -Full code -Eliquis for DVT prophylaxis on hold, SCDs for DVT prophylaxis -Status is stable, prognosis is guarded (9) Pulmonary edema: (10) Fluid overload: (11) CHF (congestive heart failure): Qualifiers: Heart failure type: unspecified Heart failure chronicity: chronic Qualified Code(s): I50.9 - Heart failure, unspecified (12) Acute respiratory distress syndrome: (13) Sepsis: (14) Shock: -Resolved -- Possibly septic shock, given pneumonia, multifactorial given adrenal insufficiency, diuresis ? Component of cardiogenic shock, given wall motion abnormalities on echocardiogram -component of adrenal insufficiency (15) Atrial fibrillation with RVR: (16) Digoxin toxicity: resolved, Digoxin levels over 3, digoxin was stopped amiodarone was stopped continue to monitor monitor potassium (17) Acute anemia: Status post 1 unit PRBC, will give 1 more unit of PRBC today (18) Thrombocytopenia: - Patient has anemia, thrombocytopenia -Hold aspirin, Plavix, Eliquis ? Hemolytic labs, ? Repeat CBC this evening (19) Hyperbilirubinemia: Liver ultrasound no acute findings, next ?we will monitor (20) Aspiration pneumonia: (21) Protein calorie malnutrition: (22) Physical deconditioning: - PT OT -Currently on peripheral nutrition, (23) Need for comfort care: Plan Currently on comfort care, will arrange home hospice Attestations 2 Medical Necessity Statement*: Patient requires hospitalization for inpatient comfort care Diagnoses Hypotension, unspecified hypotension type I95.9 Hypotension type: unspecified hypotension type Enterocolitis K52.9 Hypokalemia E87.6 Hypomagnesemia E83.42 Adrenal insufficiency E27.40 Acquired hypothyroidism E03.9 Wall motion abnormality of inferior wall of left ventricle R94.30 Acute hypoxic respiratory failure J96.01 Pulmonary edema J81.1 Fluid overload E87.70 Acute on chronic congestive heart failure, unspecified heart failure type I50.9 Heart failure type: unspecified Heart failure chronicity: chronic Acute respiratory distress syndrome J80 Sepsis A41.9 Shock R57.9 Atrial fibrillation with RVR I48.91 Digoxin toxicity T46.0X1A Acute anemia D64.9 Thrombocytopenia D69.6 Hyperbilirubinemia E80.6 Aspiration pneumonia J69.0 Protein calorie malnutrition E46 Physical deconditioning R53.81 Need for comfort care
[2023-09-15] MEDS: morphine 4 mg/mL SDV 1 mL IVP (23:48)
[2023-09-16] MEDS: morphine 4 mg/mL SDV 1 mL IVP ×2 (00:30→03:38)
[2023-09-16] MEDS: LORazepam 2 mg/mL INJ 10 mL MDV IVP (00:30)
[2023-09-16 03:23] VITALS: BP 70/38; PULSE 85; RESP 9; O2SAT 52
[2023-09-16] MEDS: morphine 10 mg/0.5 mL oral liq UD SUBLINGUAL ×2 (05:09→06:56)
--- NOTE | 2023-09-16 07:28 | PC.NURSE ---
Patient passed at 0724. This nurse verified with Alanna CUENCA. Daughter on her way.
--- NOTE | 2023-09-16 07:53 | PC.NURSE ---
MTS notified of patient passing and TOD by HS @[id number]. Currently patient is placed on a hold for MTS and Saving Site. Floor notified of hold status.
--- NOTE | 2023-09-16 09:22 | PC.OT ---
OT DISCHARGED DUE TO PATIENT BEING PLACED ON COMFORT CARE SERVICES
--- NOTE | 2023-09-16 10:13 | PM.DDS ---
Discharge Providers DDS Date of Admission: 08/25/23 19:39 Date Summary Completed: 09/17/23 Attending Provider at Admission: Max Thomas Time of : 07:24 Attending Provider at Discharge: Danielito Reece MD Primary Care Provider: DO BERTIN Gale Diagnoses Hospital Diagnoses (1) Hypotension: Qualifiers: Hypotension type: unspecified hypotension type Qualified Code(s): I95.9 - Hypotension, unspecified (2) Enterocolitis: (3) Hypokalemia: (4) Hypomagnesemia: (5) Adrenal insufficiency: (6) Acquired hypothyroidism: (7) Wall motion abnormality of inferior wall of left ventricle: (8) Acute hypoxic respiratory failure: (9) Pulmonary edema: (10) Fluid overload: (11) CHF (congestive heart failure): Qualifiers: Heart failure chronicity: chronic Heart failure type: unspecified Qualified Code(s): I50.9 - Heart failure, unspecified (12) Acute respiratory distress syndrome: (13) Sepsis: (14) Shock: (15) Atrial fibrillation with RVR: (16) Digoxin toxicity: (17) Acute anemia: (18) Thrombocytopenia: (19) Hyperbilirubinemia: (20) Aspiration pneumonia: (21) Protein calorie malnutrition: (22) Physical deconditioning: (23) Need for comfort care: Reason for Visit Reason for Visit weak Summary Date and Time of Date of : 09/16/23 Time of : 07:24 Summary Summary: Pleasant 67-year-old lady came into ER for evaluation due to having profuse diarrhea for close about a week with intermittent vomiting, now only vomiting, has not been able to tolerate food and drink or medications by mouth. Has had no appetite. Feeling weak. In ER blood pressure soft as low as 83/54. Afebrile. WBC 12.99. Sodium 132, potassium 3.3, magnesium 1.5. Creatinine 1.1. T. bili 1.4, AST 34, alk phos 154. NT-proBNP 6609. Lipase 4. TSH 15.91. CT abdomen pelvis with low-density new wall thickening seen throughout much of the colon, portions of contrast and raising concern of encephalopathy, portal hypertension, and colitis (infectious/inflammatory or ischemic) or angioedema. Patient was admitted to [facility] for hypotension, enterocolitis, received clinical monitoring, in the intensive care unit, fluid therapy Patient's hospitalization was complicated with acute hypoxic respiratory failure with acute respiratory distress syndrome secondary to pulm edema, fluid overload, systolic CHF with A-fib with RVR with aspiration pneumonia. Patient required BiPAP, as much is 90% FiO2, diuresed over 40 L, received broad-spectrum antibiotic therapy, cardiology was consulted, overall patient's oxygen requirements improved, to 10 to 12 L high flow oxygen, and intermittent BiPAP during the day. For atrial fibrillation initially managed with amiodarone drip, then transitioned to verapamil, due to soft blood pressures was taken off most rate and rhythm control medications, remained intermittently in atrial fibrillation but rate well-controlled. She also developed hypotension during the hospitalization likely secondary to acute on chronic adrenal insufficiency, aspiration pneumonia, diuresis. Patient also required stress dose hydrocortisone therapy, which was de-escalated to hydrocortisone fludrocortisone. Patient was monitored in the ICU for extended period of time, on 10 to 12 L high flow oxygen, off pressors, had significant deconditioning, protein calorie malnutrition poor appetite requiring peripheral nutrition. Due to patient's acute respiratory distress syndrome, increased oxygen requirements, deconditioned state, protein calorie malnutrition, patient was given the option of continued medical intervention and pursuing care at a long-term care facility such as [facility] versus hospice/comfort care. Patient initially wanted to continue medical interventions, and the plan was to get her up to a facility such as [facility] in [place], for long-term care. On 09/14/2023 after extensive discussion with patient and her family, patient decided to pursue comfort care, plan was to discharge her home on comfort care/hospice, however patient in the hospital on comfort care, time of 07:24 09/16/2023 Additional Data Confirmation of as documented by pronouncing clinician: no pulse, no respirations, no heart sounds and pupils fixed and dilated Family: at bedside Additional persons at bedside: nursing staff Attending/PCP notified?: I am attending Was code activated?: No Autopsy requested?: No Advance directives?: Yes Hospice patient?: No Discharge Plan Discharge Patient Disposition: Condition: Stable DS Attestations Time Spent in /Discharge Care*: greater than 30 min Quality - AMI: AMI present?: No Quality - Stroke: CVA present?: No Symptom Onset Unknown: No Quality - VTE: VTE present?: No Deep Vein Thrombosis/Pulmonary Embolism Present on Admission: No Coding Level of Care Code 33236 Total time (in minutes) for Discharge: 45 Diagnoses Hypotension, unspecified hypotension type I95.9 Hypotension type: unspecified hypotension type Enterocolitis K52.9 Hypokalemia E87.6 Hypomagnesemia E83.42 Adrenal insufficiency E27.40 Acquired hypothyroidism E03.9 Wall motion abnormality of inferior wall of left ventricle R94.30 Acute hypoxic respiratory failure J96.01 Pulmonary edema J81.1 Fluid overload E87.70 Acute on chronic congestive heart failure, unspecified heart failure type I50.9 Heart failure chronicity: chronic Heart failure type: unspecified Acute respiratory distress syndrome J80 Sepsis A41.9 Shock R57.9 Atrial fibrillation with RVR I48.91 Digoxin toxicity T46.0X1A Acute anemia D64.9 Thrombocytopenia D69.6 Hyperbilirubinemia E80.6 Aspiration pneumonia J69.0 Protein calorie malnutrition E46 Physical deconditioning R53.81 Need for comfort care
--- NOTE | 2023-09-16 12:11 | PC.SOCIAL ---
IMM Update pg 2 of IMM not updated as patient has .
[2023-09-16 12:27] VITALS: PULSE 0
--- NOTE | 2023-09-16 12:27 | PC.NURSE ---
Patient taken [place] [facility] at this time.
--- NOTE | 2023-09-17 03:23 | PC.NURSE ---
Pt body released to [facility] at 0130.
[2023-10-17 13:42] LABS: ABG PH Result 7.59 (7.35-7.45)
== END 2023-09-16 07:24 | disposition expired | DRG 391 ==
LOC: ER 16:56 → ICU 19:53 → MEDSURG 08-26 15:46 → ICU 08-28 13:02 → MEDSURG 09-14 13:58
PROVIDERS: Internal Medicine; Admitting Provider Internal Medicine; Emergency Provider Emergency Medicine; PCP Family Medicine; Visit Provider Family Medicine
DX: K52.9 Noninfective gastroenteritis and colitis, unspecified (principal); I50.23 Acute on chronic systolic (congestive) heart failure; J69.0 Pneumonitis due to inhalation of food and vomit; J80 Acute respiratory distress syndrome; E27.2 Addisonian crisis; K76.6 Portal hypertension; N25.81 Secondary hyperparathyroidism of renal origin; E46 Unspecified protein-calorie malnutrition; R57.1 Hypovolemic shock; I95.9 Hypotension, unspecified; E13.22 Other specified diabetes mellitus with diabetic chronic kidney disease; E13.42 Other specified diabetes mellitus with diabetic polyneuropathy; N18.30 Chronic kidney disease, stage 3 unspecified; K21.9 Gastro-esophageal reflux disease without esophagitis; I25.10 Atherosclerotic heart disease of native coronary artery without angina pectoris; F17.210 Nicotine dependence, cigarettes, uncomplicated; E87.6 Hypokalemia; E83.42 Hypomagnesemia; E86.0 Dehydration; E87.70 Fluid overload, unspecified; M79.605 Pain in left leg; M79.604 Pain in right leg; D69.6 Thrombocytopenia, unspecified; R00.0 Tachycardia, unspecified; T46.0X5A Adverse effect of cardiac-stimulant glycosides and drugs of similar action, initial encounter; E80.6 Other disorders of bilirubin metabolism; D64.9 Anemia, unspecified; E78.5 Hyperlipidemia, unspecified; G47.33 Obstructive sleep apnea (adult) (pediatric); J44.9 Chronic obstructive pulmonary disease, unspecified; E03.9 Hypothyroidism, unspecified; I48.91 Unspecified atrial fibrillation; G47.00 Insomnia, unspecified; Z79.02 Long term (current) use of antithrombotics/antiplatelets; Z95.5 Presence of coronary angioplasty implant and graft; Z87.440 Personal history of urinary (tract) infections; Z68.23 Body mass index [BMI] 23.0-23.9, adult; Z51.5 Encounter for palliative care; I25.2 Old myocardial infarction; Z98.84 Bariatric surgery status; Z11.52 Encounter for screening for COVID-19; Z80.0 Family history of malignant neoplasm of digestive organs
CPT/HCPCS: 36415; 36416; 36430; 36573; 36592; 36600; 51702; 71045; 71275; 74177; 76705; 80048; 80051; 80053; 80074; 80162; 80202; 80503; 81001; 82009; 82247; 82248; 82274; 82330; 82533; 82550; 82607; 82728; 82746; 82784; 82803; 82805; 82962; 82977; 83010; 83516; 83540; 83605; 83615; 83630; 83690; 83735; 83880; 84100; 84145; 84439; 84443; 84481; 84484; 85007; 85025; 85027; 85362; 85378; 85384; 85610; 85651; 85730; 86140; 86160; 86162; 86235; 86255; 86376; 86850; 86900; 86920; 87040; 87045; 87177; 87209; 87427; 87449; 87486; 87493; 87496; 87581; 87633; 92526; 92610; 93005; 93308; 94640; 94660; 96365; 96367; 96372; 96375; 96376; 97110; 97162; 97166; 97530; 97535; 99285; A4222; C1751; C9113; J0283; J0744; J1160; J1650; J1720; J1815; J1940; J2020; J2060; J2185; J2270; J2405; J2543; J2765; J3370; J3475; J3480; J3490; J7030; J7060; J7120; J8499; P9016; P9040; P9046; Q0167; Q9967